=== PATIENT | female | born 1940 | race Caucasian/White ===

== ENCOUNTER 2018-11-25 12:52 | Inpatient (IN) | payer MEDICARE, OTHER ==
[2018-11-25] VITALS (15 sets, daily range): BP systolic 85–151; BP diastolic 41–122; PULSE 75–96; RESP 12–29; Ht 154.9 cm; Wt 82.5 kg
[~2018-11-25] VITALS: Ht 154.9 cm; Wt 82.5 kg
[2018-11-25] MEDS ORDERED: ACETAMINOPHEN 650 MG SUPP PR PRN (14:00)
[2018-11-25] MEDS ORDERED: GLUCOSE GEL 15 GRAM TUBE PO PRN ×2 (14:30)
[2018-11-25] MEDS ORDERED: DEXTROSE 50% 50 ML SYRINGE IV PRN ×2 (14:30)
[2018-11-25] MEDS ORDERED: GLUCOSE GEL 15 GRAM TUBE BUCCAL PRN (14:30)
[2018-11-25] MEDS ORDERED: GLUCAGON 1 MG INJ IM PRN (14:30)
[2018-11-25] MEDS: DEXTROSE 5%-0.45% NACL 1,000 ML IV SCH (14:38)
[2018-11-25] MEDS: FAMOTIDINE 20 MG INJ IV SCH (15:45)
[2018-11-25] MEDS: INSULIN ASPART [NOVOLOG] 3 ML PEN SC SCH ×2 (16:59→21:41)
[2018-11-25] MEDS ORDERED: ACETAMINOPHEN 1000MG/100ML IV 100 ML IVPB PRN (22:30)
[2018-11-26] VITALS (23 sets, daily range): BP systolic 86–118; BP diastolic 42–82; PULSE 67–93; RESP 10–26
[2018-11-26] MEDS: INSULIN ASPART [NOVOLOG] 3 ML PEN SC SCH ×6 (00:22→20:16)
[2018-11-26] MEDS: DEXTROSE 5%-0.45% NACL 1,000 ML IV SCH ×2 (01:33→15:25)
--- NOTE | 2018-11-26 02:51 | HP ---
DATE OF ADMISSION: 11/25/2018 CHIEF COMPLAINT: Acute encephalopathy and hypertension. HISTORY OF PRESENT ILLNESS: The patient is a 78-year-old female with hypertension, congestive heart failure, asthma, chronic kidney disease stage III, diabetes, history of pulmonary embolism, colon cancer, status post surgery, atrial fibrillation. The patient was recently admitted at [facility] in [place] for acute respiratory failure secondary to pulmonary edema due to acute diastolic heart failure. The patient was treated with IV Lasix. The patient also has history of asthma. The patient was stabilized and was transferred to [facility] on 11/18/2018. The patient since admission had been slowly declining and for the last 2 to 3 days, the patient's renal functions have been deteriorating. The patient continues to remain short of breath especially with minimal activity. The patient this morning was noted to be altered and was nonverbal, initially was not even waking up but subsequently she started waking up and was able to move all extremities. The patient did not have any fever or chills. No history of vomiting. The patient was recently noted to be constipated and had large bowel movement yesterday. The patient did not have any acute skin rash or joint swelling. The patient was seen by Dr. Grey due to worsening renal failure. The patient also developed anemia of chronic kidney disease and hemoglobin this morning was only 7.1. Chemistry revealed a BUN of 106, creatinine of 6.9. The patient was altered and was seen by Dr. Cardoso from neurology standpoint. This morning, the patient was subsequently transferred to [facility] ICU because of multiple readings of hypertension. The patient's last blood pressure at [place] was in 80s and the patient was lethargic. REVIEW OF SYSTEMS: Rather limited as patient was lethargic, although there was no reported tonic-clonic seizure, no reported vomiting, no reported gross bleeding from any site. The patient did not have any gross focal motor deficit. No reported chest congestion. The patient does have shortness of breath with minimal activity. PAST MEDICAL HISTORY: As stated above. PAST SURGICAL HISTORY: Status post colon resection with removal of approximately 1/3 of colon due to cancer. FAMILY HISTORY: Noncontributory. SOCIAL HISTORY: The patient prior to admission at hospital lived at home with family. No smoking or alcohol. ALLERGIES: NO KNOWN DRUG ALLERGIES. PHYSICAL EXAMINATION: GENERAL: Revealed the patient to be lethargic but arousable, although confused with dysarthric speech. VITAL SIGNS: Temperature 98.3, pulse 91, respiration 21, blood pressure 151/99, O2 saturation 100% on 2 liters nasal cannula. HEENT: Atraumatic, normocephalic head. Right eyelid has small reddish lesion, but no eye discharge or redness. No nystagmus. Nose and ears are normal externally. NECK: No mass, no JVD, no thyromegaly. CHEST: Revealed diminished breath sounds bilaterally. No use of accessory muscles. CARDIOVASCULAR: Irregular rhythm. ABDOMEN: Soft, nondistended, nontender. No palpable mass. EXTREMITIES: No leg edema. Pedal pulses are palpable. SKIN: Without acute rash. NEUROLOGIC: The patient is lethargic, but arousable and has dysarthria. LABORATORY DATA: Sodium 142, potassium 4.4, BUN 108, creatinine 6.8. Last glucose 154. Phosphorus 6.4, magnesium 3.8. WBC 12.9, hemoglobin 7.1, platelet 127. IMPRESSION: 1. Acute encephalopathy, most likely metabolic in nature. Stat CT of the brain was obtained today due to patient being on Eliquis; however, CT revealed white matter disease compatible with chronic small vessel ischemia. 2. Mildly elevated leukocytosis. In view of no fever, we will continue to monitor. 3. Hypertension with hypertensive heart disease and history of congestive heart failure. The patient's recent EF is 60%. We will hold off on Lasix. The patient was seen by Dr. Grey. I spoke with him. The patient will require hemodialysis due to worsening renal failure. The patient initially was hypotensive at [place] [facility] but was given IV fluid bolus. Since then, the patient's blood pressure has remained in normal range. The patient will be kept n.p.o. until seen by speech therapist. I spoke with Dr. Rosario for pulmonary consult. I spoke with Dr. Emil Grey from nephrology standpoint. 4. Diabetes. Continue Lantus and sliding scale insulin. The patient will be kept n.p.o. until cleared by speech therapist. 5. Hypothyroidism. Continue Synthroid once she is able to take p.o. 6. Asthma. Continue breathing treatment. If the patient remains on breathing treatment, we will add Pulmicort in view of history of asthma. 7. History of atrial fibrillation. We will continue to monitor. 8. Thrombocytopenia. Apparently, the patient's platelet count on day of admission were 84. Now, it is 127. We will continue to monitor. Dr. Sy is following in cardiology consultation. We have given a dose of Procrit for anemia of chronic kidney disease. The patient will remain in ICU for close monitoring. As mentioned above. CT of the head was unremarkable. We will wait for speech therapy evaluation and after that, the patient will be resumed on Eliquis for cerebrovascular accident prophylaxis. We will do followup labs in the morning. Meanwhile, the patient will be given gastrointestinal prophylaxis with Prevacid. Further recommendation will depend on patient's hospital course and recommendation from multiple consultants. Plan of care discussed with her daughter. Dictated By: NEREIDA MCQUEEN MD AB/NTS Conf#: [id number] DID#: [id number] CC: EVA ROSARIO MD;*EndCC* MTDD
[2018-11-26] MEDS ORDERED: SOD CHLORIDE 0.9% 500 ML IV ONE (04:00)
[2018-11-26] MEDS ORDERED: PHENYLephrine 20MG IN 250 ML 250 ML IV SCH (06:30)
--- NOTE | 2018-11-26 08:14 | CONS ---
DATE OF ADMISSION: 11/25/2018 DATE OF CONSULTATION: 11/26/2018 TYPE OF CONSULTATION: Nephrology. REASON FOR CONSULTATION: Acute kidney injury, chronic kidney disease. PHYSICIAN REQUESTING CONSULT: Dr. Lind. HISTORY OF PRESENT ILLNESS: This is a 78-year-old female with a past medical history of hypertension , congestive heart failure, asthma, history of chronic kidney disease, history of diabetes, history o f pulmonary embolism, colon cancer, history of atrial fibrillation, who was recently admitted to [facility] for acute respiratory failure secondary to congestive heart failure [facility]. The patient was treated with IV diuretics. She was eventually stabilized and transferred to [facility] on 11/18/18. During the time in [place], the patient had a significant dec line in mental status. The patient has also had worsening of renal function. The patient was in acu te kidney injury during a time in [place] with a creatinine that continued to decline, most recently i t was noted to be 6.9 mg/dL. The patient then developed hypotension as a result was transferred to [facility] Int[facility] Unit for further care. In terms of patient's renal history, the patient previously noted to have chronic kidney disease. Ho wever, the patient had a recent decline in renal function and was being evaluated for hemodialysis. The patient's family has apparently consented for a Eliseo catheter placement and hemodialysis. The re have been no reports of any hemoptysis, hematemesis or hematochezia. PAST MEDICAL HISTORY: As stated above, history of chronic kidney disease, hypertension, congestive h eart failure, history of asthma, history of pulmonary embolism, history of colon cancer. PAST SURGICAL HISTORY: Status post colon resection. FAMILY HISTORY: Noncontributory. SOCIAL HISTORY: Lives at home. ALLERGIES: NO KNOWN DRUG ALLERGIES. REVIEW OF SYSTEMS: Unable to do adequate review of systems as the patient is altered. Pertinent pos itives as obtained by reviewing medical records, speaking to hospital staff, stated in HPI, otherwise negative. PHYSICAL EXAMINATION: VITAL SIGNS: Blood pressure is 108/72, respirations 16, pulse 72, temperature 98.6. HEENT: Head is normocephalic. NECK: Supple. HEART: Regular rate. LUNGS: Show diminished breath sounds at the base. ABDOMEN: Soft, nontender to palpation without rebound or guarding. EXTREMITIES: Negative for clubbing, cyanosis. Trace edema. DERMATOLOGIC: No rashes. MUSCULOSKELETAL: No joint effusion. NEUROLOGIC: Limited exam due to patient as the patient is obtunded. LABORATORY DATA: Reviewed. The patient's BUN 111, creatinine 7.19, phosphorus 6.9, magnesium 3.5. White count 13.1, hemoglobin 6.9, platelet count is 133. The patient's microbiology was reviewed. C T scan of the brain was reviewed. ASSESSMENT AND PLAN: This is a 78-year-old female who presents with; 1. Nonoliguric acute kidney injury on top of chronic kidney disease, with a previous baseline creati nine of 3.84 mg/dL. Etiology of current acute kidney injury is secondary to hemodynamics, acute tubu lar necrosis. The patient is currently a candidate for hemodialysis due to worsening renal function and uremic type symptoms. Plan is to initiate hemodialysis once a Eliseo catheter has been placed. We will discuss with the patient's family about overall goals of care. Anticipate daily dialysis fo r solute clearance and volume removal. We will otherwise continue current treatment plans, supportiv e care, renally dose all medicines. 2. Anemia etiology may be secondary to chronic kidney disease. Plan is to check an iron panel, chec k ferritin level. We will give the patient Epogen. 3. Mineral bone disorder, monitor calcium and phosphorus levels. 4. Encephalopathy. Etiology may be secondary to uremia. Continue medical management. Anticipate h emodialysis. 5. Coronary artery disease. Continue current medical management. 6. Diabetes. Continue current insulin regimen. 7. Hypothyroidism. Continue Synthroid. 8. Asthma. Continue current treatment plan. 9. History of atrial fibrillation. Continue to monitor. 10. History of thrombocytopenia. 11. Hypotension, improved. Continue to monitor. Thank you, Dr. Lind, for this interesting consult. It will be a pleasure to follow the patient w ith you throughout the hospital course. Dictated By: SUSY CISNEROS DO NR/NTS Conf#: [id number] DID#: [id number] CC: NEREIDA LIND MD; EVA LOPEZ MD;*EndCC*
--- NOTE | 2018-11-26 08:35 | CONS ---
Assessment/Plan Assessment/Plan Assessment/Plan (Daily) CT of the head is showing atrophy. Assessment and recommendations; 1. Patient admitted with altered mental status likely due to acute worsening of chronic renal failure 2. History of CHF, hypertension, chronic atrial fibrillation, as well as colon cancer. 3. Significant anemia. 4. Thrombocytopenia. 5. Hypotension, likely due to anemia. Continue current supportive care. Patient will need a PICC line placed. May require pressor support. Patient to get blood transition. May possibly req uire hemodialysis. Meanwhile will obtain a chest x-ray. Consultation Date/Type/Reason Admit Date/Time Nov 25, 2018 at 13:18 Date of Consultation: Nov 26, 2018 Type of Consult Pulmonary/critical care Patient is a 78-year-old lady who was admitted for altered mental status. Further workup has revealed significant anemia with worsening chronic renal failure with severe elevation in serum creatinine. Since admission however patient mental status has improved significantly to the point with the patient always communicative and awake and alert. Patient also is mildly hypotensive likely due to anemia. She denies any shortness of breath any chest pain. Any nausea vomiting. Past medical history; 1. Chronic renal insufficiency, 2. CHF. 3. Hypertension. 4. History of colon cancer. Status post partial colectomy. 5. Chronic atrial fibrillation. 6. Apparently chronic anemia. Medications; reviewed. Allergies; none. Social history; patient never smoked. Family history; noncontributory. 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 Review of systems; denies any chest pain, shortness of breath has improved. Denies any abdominal pain, nausea vomiting. General exam; elderly female, awake. Currently no distress. Date/Time of Note DATE: 11/26/18 TIME: 08:31 Past Medical History Medications Current Medications Hydralazine HCl (Apresoline) 10 mg Q6H PRN IV SBP >160; Start 11/25/18 at 14:00 Ondansetron HCl (Zofran Inj) 4 mg Q4H PRN IV NAUSEA AND/OR VOMITING; Start 11/25/18 at 14:00 Insulin Glargine (Lantus) 10 units DAILY@0800 SC ; Start 11/26/18 at 08:00 Insulin Aspart (Novolog Insulin Pen) NOVOLOG *MILD* ALGORI... Q4 SC Last administered on 11/26/18at 00:22; Admin Dose 2 UNIT; Start 11/25/18 at 17:00 Albuterol/ Ipratropium (Duoneb) 3 ml Q6H RESP THERAPY PRN HHN SHORTNESS OF BREATH; Start 11/25/18 at 14:00 Dextrose/Sodium Chloride 1,000 ml @ 80 mls/hr [id number] IV Last administered on 11/26/18at 01:33; Admin Dose 80 MLS/HR; Start 11/25/18 at 14:00 Acetaminophen (Tylenol Supp) 650 mg Q4H PRN MD MILD PAIN(1-3) OR TEMP>38C; Start 11/25/18 at 14:00; Status Hold Miscellaneous Information 1 ea NOTE XX ; Start 11/25/18 at 14:30 Glucose (Glutose) 15 gm Q15M PRN PO DECREASED GLUCOSE; Start 11/25/18 at 14:30 Glucose (Glutose) 22.5 gm Q15M PRN PO DECREASED GLUCOSE; Start 11/25/18 at 14:30 Dextrose (D50w Syringe) 25 ml Q15M PRN IV DECREASED GLUCOSE; Start 11/25/18 at 14:30 Dextrose (D50w Syringe) 50 ml Q15M PRN IV DECREASED GLUCOSE; Start 11/25/18 at 14:30 Glucagon (Glucagen) 1 mg Q15M PRN IM DECREASED GLUCOSE; Start 11/25/18 at 14:30 Glucose (Glutose) 15 gm Q15M PRN BUCCAL DECREASED GLUCOSE; Start 11/25/18 at 14:30 Famotidine (Pepcid Iv) 20 mg DAILY IV Last administered on 11/25/18at 15:45; Admin Dose 20 MG; Start 11/25/18 at 15:00 Acetaminophen 100 ml @ 400 mls/hr Q6H PRN IVPB pain Last administered on 11/25/18at 22:35; Admin Dose 400 MLS/HR; Start 11/25/18 at 22:30; Stop 11/26/18 at 22:29 Budesonide (Pulmicort (Neb)) 0.5 mg BID RESP THERAPY HHN ; Start 11/26/18 at 09:00 Phenylephrine HCl 250 ml @ 75 mls/hr TITRATE IV ; Start 11/26/18 at 06:30 Allergies: Coded Allergies: No Known Allergy (Unverified , 11/18/18) Social History Smoking Status: Never smoker Exam/Review of Systems Exam Vitals Vital Signs Date Temp Pulse Resp B/P (MAP) Pulse Ox O2 O2 Flow FiO2 Time Delivery Rate 11/26/18 76 24 108/75 100 Nasal 2.0 05:00 (86) Cannula 11/26/18 27 04:38 11/26/18 97.8 04:00 Intake and Output 11/25/18 11/25/18 11/26/18 1515:00 23:00 07:00 IntakeIntake Total 30 ml 320 ml 1000 ml OutputOutput Total 3 ml BalanceBalance 30 ml 320 ml 997 ml Exam HE ENT exam; supple neck, positive JVD. No lymphadenopathy. Midline trachea. No thyromegaly. Patient has fair dentition. No neck masses. Pupils are small bilaterally. Chest exam; diminished but clear breath sounds. S1-S2 audible, no murmurs. Irregular rhythm. Abdomen exam; soft, protuberant. Nontender. Bowel sounds audible. Extremity exam; trace edema. DOWEL PIN MAN exam; no focal deficit. Results Result Diagram: 11/26/18 0512 11/26/18 0512 Results 24hrs Laboratory Tests Test 11/25/18 16:49 11/25/18 20:38 11/26/18 00:15 11/26/18 03:57 Bedside Glucose 208 154 190 140 Test 11/26/18 05:12 White Blood Count 13.1 H Red Blood Count 2.40 L Hemoglobin 6.9 *L Hematocrit 23.2 L Mean Corpuscular 96.7 Volume Mean Corpuscular 28.8 L Hemoglobin Mean Corpuscular 29.7 L Hemoglobin Concent Red Cell 14.7 H Distribution Width Platelet Count 133 L Mean Platelet Volume 12.9 H Immature 0.500 H Granulocytes % Neutrophils % Segmented 83 H Neutrophils % (Manual) Band Neutrophils % 5 H (Manual) Lymphocytes % Lymphocytes % 4 L (Manual) Monocytes % Monocytes % (Manual) 8 Eosinophils % Basophils % Nucleated Red Blood 0.2 H Cells % Immature 0.070 H Granulocytes # Neutrophils # Neutrophils # 11.0 H (Manual) Band Neutrophils # 0.6 Lymphocytes (Manual) 0.5 L Lymphocytes # Monocytes # Monocytes # (Manual) 1.0 H Eosinophils # Basophils # Nucleated Red Blood Cells # Platelet Estimate DECREASED Polychromasia 1+ Anisocytosis 2+ Microcytosis 1+ Macrocytosis 1+ Activated 52.4 H Partial Thromboplast Time Sodium Level 139 Potassium Level 4.3 Chloride Level 101 Carbon Dioxide Level 24 Anion Gap 14 H Blood Urea Nitrogen 111 H Creatinine 7.19 H Est Glomerular Filtrat Rate mL/min Glucose Level 93 Calcium Level 7.5 L Phosphorus Level 6.9 H Magnesium Level 3.5 H Medications Medication Current Medications Hydralazine HCl (Apresoline) 10 mg Q6H PRN IV SBP >160; Start 11/25/18 at 14:00 Ondansetron HCl (Zofran Inj) 4 mg Q4H PRN IV NAUSEA AND/OR VOMITING; Start 11/25/18 at 14:00 Insulin Glargine (Lantus) 10 units DAILY@0800 SC ; Start 11/26/18 at 08:00 Insulin Aspart (Novolog Insulin Pen) NOVOLOG *MILD* ALGORI... Q4 SC Last administered on 11/26/18at 00:22; Admin Dose 2 UNIT; Start 11/25/18 at 17:00 Albuterol/ Ipratropium (Duoneb) 3 ml Q6H RESP THERAPY PRN HHN SHORTNESS OF BREATH; Start 11/25/18 at 14:00 Dextrose/Sodium Chloride 1,000 ml @ 80 mls/hr [id number] IV Last administered on 11/26/18at 01:33; Admin Dose 80 MLS/HR; Start 11/25/18 at 14:00 Acetaminophen (Tylenol Supp) 650 mg Q4H PRN MD MILD PAIN(1-3) OR TEMP>38C; Start 11/25/18 at 14:00; Status Hold Miscellaneous Information 1 ea NOTE XX ; Start 11/25/18 at 14:30 Glucose (Glutose) 15 gm Q15M PRN PO DECREASED GLUCOSE; Start 11/25/18 at 14:30 Glucose (Glutose) 22.5 gm Q15M PRN PO DECREASED GLUCOSE; Start 11/25/18 at 14:30 Dextrose (D50w Syringe) 25 ml Q15M PRN IV DECREASED GLUCOSE; Start 11/25/18 at 14:30 Dextrose (D50w Syringe) 50 ml Q15M PRN IV DECREASED GLUCOSE; Start 11/25/18 at 14:30 Glucagon (Glucagen) 1 mg Q15M PRN IM DECREASED GLUCOSE; Start 11/25/18 at 14:30 Glucose (Glutose) 15 gm Q15M PRN BUCCAL DECREASED GLUCOSE; Start 11/25/18 at 14:30 Famotidine (Pepcid Iv) 20 mg DAILY IV Last administered on 11/25/18at 15:45; Admin Dose 20 MG; Start 11/25/18 at 15:00 Acetaminophen 100 ml @ 400 mls/hr Q6H PRN IVPB pain Last administered on 11/25/18at 22:35; Admin Dose 400 MLS/HR; Start 11/25/18 at 22:30; Stop 11/26/18 at 22:29 Budesonide (Pulmicort (Neb)) 0.5 mg BID RESP THERAPY HHN ; Start 11/26/18 at 09:00 Phenylephrine HCl 250 ml @ 75 mls/hr TITRATE IV ; Start 11/26/18 at 06:30 PERNELL BYRD Nov 26, 2018 08:35
[2018-11-26] MEDS ORDERED: LIDOCAINE 1% (MPF) 5 ML VIAL SC ONE (09:00)
[2018-11-26] MEDS: FAMOTIDINE 20 MG INJ IV SCH (09:59)
[2018-11-26] MEDS: INSULIN GLARGINE [LANTus] (100 UNITS/ML) SYG SC SCH (10:00)
[2018-11-26] MEDS ORDERED: FER325 PO (10:14)
[2018-11-26] MEDS ORDERED: INSU100I33 SC (10:15)
[2018-11-26] MEDS ORDERED: DOCU250C58 PO (10:15)
[2018-11-26] MEDS: BUDESONIDE (NEB) 0.5MG/2ML AMP HHN SCH ×2 (10:16→20:17)
[2018-11-26] MEDS ORDERED: HYDR-3672 PO (10:16)
[2018-11-26] MEDS ORDERED: CLON1PAT2 TD (10:17)
[2018-11-26] MEDS ORDERED: CLON0.2T5 PO (10:17)
[2018-11-26] MEDS ORDERED: ERGO500013 PO (10:18)
[2018-11-26] MEDS ORDERED: LISI-313 PO (10:18)
[2018-11-26] MEDS ORDERED: LEVO125T7 PO (10:19)
[2018-11-26] MEDS ORDERED: BISA-34 PO (10:19)
[2018-11-26] MEDS ORDERED: FURO40TA4 PO (10:19)
[2018-11-26] MEDS ORDERED: FAMO20TA18 PO (10:20)
[2018-11-26] MEDS ORDERED: AMLO-147 PO (10:21)
[2018-11-26] MEDS ORDERED: ASPI-817 PO (10:21)
[2018-11-26] MEDS ORDERED: GABA300C16 PO (10:24)
[2018-11-26] MEDS ORDERED: CARV3.1260 PO (10:24)
[2018-11-26] MEDS ORDERED: CLOP75TA19 PO (10:25)
[2018-11-26] MEDS ORDERED: INSU100C3 SQ (10:26)
[2018-11-26] MEDS ORDERED: DRON400T2 PO (10:26)
[2018-11-26] MEDS ORDERED: ATOR20TA38 PO (10:27)
[2018-11-26] MEDS ORDERED: POTA8CAP PO (10:27)
[2018-11-26] MEDS ORDERED: MAGN400T27 PO (10:28)
[2018-11-26] MEDS ORDERED: LOSA50TA14 PO (10:28)
[2018-11-26] MEDS ORDERED: ALPR0.254 PO (10:29)
--- NOTE | 2018-11-26 16:13 | PN ---
Date/Time of Note Date/Time of Note DATE: 11/26/18 TIME: 15:57 Assessment/Plan VTE Prophylaxis Risk score (from [facility])>0 risk: 11 SCD applied (from [facility]): Yes Pharmacological prophylaxis: NA/contraindicated Pharm contraindication: thrombocytopenia Lines/Catheters IV Catheter Type (from [facility]): PICC Line Central line still needed: Yes Urinary Cath still in place: Yes Reason Cath still needed: urinary retention Assessment/Plan Hospital Course Patient is lethargic but easily arousable, undergoing blood transfusion plan to start hemodialysis when hemodialysis catheter will be placed. Patient is currently in atrial fibrillation at controlled rate. Assessment/Plan -Acute kidney injury on chronic kidney disease. Plan for hemodialysis while he be placed. Dr. Sadler is following in nephrology consultation. -Acute metabolic encephalopathy. CT revealed white matter disease compatible with chronic small vessel ischemia. -Atrial fibrillation. Dr. Sy is following in cardiology consultation. -CHF -Hypertension -Anemia of chronic disease requiring blood transfusion, follow-up on stool for OB. -Diabetes. Continue Lantus and sliding scale insulin. -Hypothyroidism. Continue Synthroid. -Asthma. Continue Pulmicort. -Thrombocytopenia. Critical care time spent is 30 minutes. Further recommendations based on clinical course. Plan of care discussed with Dr. Lind. Result Diagram: 11/26/1851111/26/18511 Results 24hrs Laboratory Tests Test 11/25/18 16:49 11/25/18 20:38 11/26/18 00:15 11/26/18 03:57 Bedside Glucose 208 154 190 140 Test 11/26/18 05:10 11/26/18 05:12 11/26/18 09:11 11/26/18 12:36 Hepatitis B Surface NEGATIVE Antigen Hepatitis B Surface NEGATIVE Antibody White Blood Count 13.1 H Red Blood Count 2.40 L Hemoglobin 6.9 *L Hematocrit 23.2 L Mean Corpuscular 96.7 Volume Mean Corpuscular 28.8 L Hemoglobin Mean Corpuscular 29.7 L Hemoglobin Concent Red Cell 14.7 H Distribution Width Platelet Count 133 L Mean Platelet Volume 12.9 H Immature 0.500 H Granulocytes % Neutrophils % Segmented 83 H Neutrophils % (Manual) Band Neutrophils % 5 H (Manual) Lymphocytes % Lymphocytes % 4 L (Manual) Monocytes % Monocytes % (Manual) 8 Eosinophils % Basophils % Nucleated Red Blood 0.2 H Cells % Immature 0.070 H Granulocytes # Neutrophils # Neutrophils # 11.0 H (Manual) Band Neutrophils # 0.6 Lymphocytes (Manual) 0.5 L Lymphocytes # Monocytes # Monocytes # (Manual) 1.0 H Eosinophils # Basophils # Nucleated Red Blood Cells # Platelet Estimate DECREASED Polychromasia 1+ Anisocytosis 2+ Microcytosis 1+ Macrocytosis 1+ Activated 52.4 H Partial Thromboplast Time Sodium Level 139 Potassium Level 4.3 Chloride Level 101 Carbon Dioxide Level 24 Anion Gap 14 H Blood Urea Nitrogen 111 H Creatinine 7.19 H Est Glomerular Filtrat Rate mL/min Glucose Level 93 Calcium Level 7.5 L Phosphorus Level 6.9 H Magnesium Level 3.5 H Bedside Glucose 137 150 Exam/Review of Systems Exam Vitals Vital Signs Date Temp Pulse Resp B/P (MAP) Pulse Ox O2 O2 Flow FiO2 Time Delivery Rate 11/26/18 82 18 100/82 87 Nasal 2.0 15:00 (88) Cannula 11/26/18 98.2 12:00 11/26/18 27 04:38 Intake and Output 11/25/18 11/25/18 11/26/18 1515:00 23:00 07:00 IntakeIntake Total 30 ml 320 ml 1180 ml OutputOutput Total 3 ml BalanceBalance 30 ml 320 ml 1177 ml Constitutional: alert, oriented Respiratory: diminished breath sounds Cardiovascular: irregular rhythm Gastrointestinal: soft, non-tender Musculoskeletal: nl extremities to inspection Extremities: normal pulses Neurological: nl mental status, lethargic Skin: nl turgor Results Results 24hrs Laboratory Tests Test 11/25/18 16:49 11/25/18 20:38 11/26/18 00:15 11/26/18 03:57 Bedside Glucose 208 154 190 140 Test 11/26/18 05:10 11/26/18 05:12 11/26/18 09:11 11/26/18 12:36 Hepatitis B Surface NEGATIVE Antigen Hepatitis B Surface NEGATIVE Antibody White Blood Count 13.1 H Red Blood Count 2.40 L Hemoglobin 6.9 *L Hematocrit 23.2 L Mean Corpuscular 96.7 Volume Mean Corpuscular 28.8 L Hemoglobin Mean Corpuscular 29.7 L Hemoglobin Concent Red Cell 14.7 H Distribution Width Platelet Count 133 L Mean Platelet Volume 12.9 H Immature 0.500 H Granulocytes % Neutrophils % Segmented 83 H Neutrophils % (Manual) Band Neutrophils % 5 H (Manual) Lymphocytes % Lymphocytes % 4 L (Manual) Monocytes % Monocytes % (Manual) 8 Eosinophils % Basophils % Nucleated Red Blood 0.2 H Cells % Immature 0.070 H Granulocytes # Neutrophils # Neutrophils # 11.0 H (Manual) Band Neutrophils # 0.6 Lymphocytes (Manual) 0.5 L Lymphocytes # Monocytes # Monocytes # (Manual) 1.0 H Eosinophils # Basophils # Nucleated Red Blood Cells # Platelet Estimate DECREASED Polychromasia 1+ Anisocytosis 2+ Microcytosis 1+ Macrocytosis 1+ Activated 52.4 H Partial Thromboplast Time Sodium Level 139 Potassium Level 4.3 Chloride Level 101 Carbon Dioxide Level 24 Anion Gap 14 H Blood Urea Nitrogen 111 H Creatinine 7.19 H Est Glomerular Filtrat Rate mL/min Glucose Level 93 Calcium Level 7.5 L Phosphorus Level 6.9 H Magnesium Level 3.5 H Bedside Glucose 137 150 Medications Medication Current Medications Hydralazine HCl (Apresoline) 10 mg Q6H PRN IV SBP >160; Start 11/25/18 at 14:00 Ondansetron HCl (Zofran Inj) 4 mg Q4H PRN IV NAUSEA AND/OR VOMITING; Start 11/25/18 at 14:00 Insulin Glargine (Lantus) 10 units DAILY@0800 SC Last administered on 11/26/18at 10:00; Admin Dose 10 UNITS; Start 11/26/18 at 08:00 Insulin Aspart (Novolog Insulin Pen) NOVOLOG *MILD* ALGORI... Q4 SC Last administered on 11/26/18at 12:41; Admin Dose 1 UNIT; Start 11/25/18 at 17:00 Albuterol/ Ipratropium (Duoneb) 3 ml Q6H RESP THERAPY PRN HHN SHORTNESS OF BREATH; Start 11/25/18 at 14:00 Dextrose/Sodium Chloride 1,000 ml @ 80 mls/hr [id number] IV Last administered on 11/26/18at 15:25; Admin Dose 80 MLS/HR; Start 11/25/18 at 14:00 Acetaminophen (Tylenol Supp) 650 mg Q4H PRN RI MILD PAIN(1-3) OR TEMP>38C; Start 11/25/18 at 14:00; Status Hold Miscellaneous Information 1 ea NOTE XX ; Start 11/25/18 at 14:30 Glucose (Glutose) 15 gm Q15M PRN PO DECREASED GLUCOSE; Start 11/25/18 at 14:30 Glucose (Glutose) 22.5 gm Q15M PRN PO DECREASED GLUCOSE; Start 11/25/18 at 14:30 Dextrose (D50w Syringe) 25 ml Q15M PRN IV DECREASED GLUCOSE; Start 11/25/18 at 14:30 Dextrose (D50w Syringe) 50 ml Q15M PRN IV DECREASED GLUCOSE; Start 11/25/18 at 14:30 Glucagon (Glucagen) 1 mg Q15M PRN IM DECREASED GLUCOSE; Start 11/25/18 at 14:30 Glucose (Glutose) 15 gm Q15M PRN BUCCAL DECREASED GLUCOSE; Start 11/25/18 at 14:30 Famotidine (Pepcid Iv) 20 mg DAILY IV Last administered on 11/26/18at 09:59; Admin Dose 20 MG; Start 11/25/18 at 15:00 Acetaminophen 100 ml @ 400 mls/hr Q6H PRN IVPB pain Last administered on 11/25/18at 22:35; Admin Dose 400 MLS/HR; Start 11/25/18 at 22:30; Stop 11/26/18 at 22:29 Budesonide (Pulmicort (Neb)) 0.5 mg BID RESP THERAPY HHN Last administered on 11/26/18at 10:16; Admin Dose 0.5 MG; Start 11/26/18 at 09:00 Phenylephrine HCl 250 ml @ 75 mls/hr TITRATE IV ; Start 11/26/18 at 06:30 IV Flush (NS 10 ml) 10 ml PRN PRN IV IV PROTOCOL; Start 11/26/18 at 14:00 GENNY SULLIVAN Nov 26, 2018 16:07
[2018-11-26] MEDS: ALBUTEROL/IPRATROPIUM (NEB) 3 ML AMP HHN PRN ×2 (17:43→20:17)
--- NOTE | 2018-11-26 20:23 | CONS ---
DATE OF ADMISSION: 11/25/2018 DATE OF CONSULTATION: 11/26/2018 REASON FOR CONSULTATION: Atrial fibrillation. REQUESTING PHYSICIAN: Dr. Lind. HISTORY OF PRESENT ILLNESS: The patient is a 78-year-old female with history of chronic kidney disea se, atrial fibrillation, coronary artery disease, nonobstructive chart biopsy from catheters outside hospital, anemia, gastroesophageal reflux disease, diastolic congestive heart failure, hypertension, hypothyroidism, recent GI bleed, who had initially been admitted to [facility] in [place] pril 2019 for ongoing evaluation and treatment of congestive heart failure, respiratory distress. Th e patient has remained at [facility] on baseline Eliquis, carvedilol and diltiazem. The patient was note d to have worsening hypotension and therefore was transferred to the ICU. Since arrival in the ICU, temperature 98.6, blood pressure 138/99, pulse 96, respiratory rate 22, satting 96%. The patient's l abs were notable for white count 13.1, hemoglobin 6.9, platelet count 133, sodium 139, potassium 4.3, creatinine 7.1, BUN of 111, magnesium 3.50, INR not drawn. The patient had stool occult blood retur michelle positive. The patient underwent a brain CT for worsening altered mental status with atrophy, whi te matter disease, chronic small vessel ischemia and a chest x-ray that revealed diffuse patulous ves dmitriy with moderate right pleural effusion. The patient at this time remains in the ICU off of pressur e support with ongoing lethargy. General altered mental state. PAST MEDICAL HISTORY: As above in HPI. MEDICATIONS CURRENTLY IN HOSPITAL: 1. Budesonide. 2. Lantus for life as necessary. 3. Tylenol. 4. Pepcid. 5. Hydralazine. 6. IV fluid hydration 80 mL an hour. ALLERGIES: NO KNOWN DRUG ALLERGIES. SOCIAL HISTORY: No current tobacco, ETOH or illicit drug use. FAMILY HISTORY: No sudden cardiac or early CAD. REVIEW OF SYSTEMS: As above in HPI. CONSTITUTIONAL: No fevers, chills. PULMONARY: Shortness of breath. CARDIOVASCULAR: No current signs of chest pain, but atrial fibrillation. GASTROINTESTINAL: No vomiting. GENITOURINARY: No hematuria. MUSCULOSKELETAL: Degenerative joint disease. PSYCHIATRIC: No documented psych history. NEUROLOGICAL: Altered mental state. CARDIOVASCULAR: Hypertension, atrial fibrillation. GI: GI bleed. : Renal failure. PSYCHIATRIC: No documented psych history. NEUROLOGIC: Altered mental state. PHYSICAL EXAMINATION: VITAL SIGNS: Temperature of 98.2, blood pressure 100/82, pulse 82, respirations 18, satting 87% on 2 liters. GENERAL: The patient is sleeping but arousable. NECK: JVP approximately 9 cm of water. CHEST: Upper airway transmitted rhonchus sounds. HEART: Irregularly irregular, I/ systolic murmur. ABDOMEN: Positive bowel sounds, soft. EXTREMITIES: Trace edema, 1+ pulses bilateral posterior tibial. LABORATORIES: Most recently white count 13.1, hemoglobin 6.9, platelet count 133. Sodium 139, potas sium 4.3, creatinine 7.1, BUN of 111, magnesium 3.5. IMAGING STUDIES: As above in HPI. No further imaging studies for my review at this time. ECG: No electrocardiograms for my review at this time. IMPRESSION: 1. Hypotension, borderline, not on pressure support at this time. 2. Atrial fibrillation, primarily rate controlled off of antihypertensives at this time. 3. Anemia, worsening with guaiac positive stool consistent with gastrointestinal bleed. 4. Diabetes mellitus. 5. Acute on chronic renal failure, being initiated on hemodialysis. 6. Altered mental state. 7. Diastolic congestive heart failure due to a preserved EF by most recent echo and findings by ches t x-ray. 8. History of coronary artery disease, nonobstructive by outside hospital catheterization. 9. Shortness of breath with hypothyroidism. 10. Diabetes mellitus. RECOMMENDATIONS: 1. At this time, we would maintain the patient on close monitoring to follow rhythm and rate control closely. 2. We will give patient IV push p.r.n., beta radha and consider single dose of digoxin if rates be gin to increase. 3. We will hold on the patient's anticoagulation at this time given guaiac positive stool, worsening anemia. 4. Pressor support as necessary. 5. We would completely rule out myocardial infarction to ensure this patient's constellation not res ult in acute coronary syndrome such as acute myocardial infarction unlikely due to an outside hospita l catheterization. 6. The patient to be initiated on hemodialysis for correction of volume and electrolyte abnormalitie s. 7. Follow the patient's blood sugars closely on Lantus. 8. Consider transfusion with next hemodialysis. Thank you for allowing me to take part in the care of this patient. I will continue to follow very c losely with you with further recommendations to be made as the patient progresses through inpatient h ospital clinical course. Dictated By: CARMELO GONZALEZ/STEPHEN Conf#: [id number] DID#: [id number] CC: EVA LOPEZ MD; NEREIDA LIND MD;*EndCC*
[2018-11-27] VITALS (34 sets, daily range): BP systolic 88–139; BP diastolic 42–113; PULSE 63–92; RESP 10–23
[2018-11-27] MEDS: INSULIN ASPART [NOVOLOG] 3 ML PEN SC SCH ×6 (01:38→21:00)
[2018-11-27] MEDS: DEXTROSE 5%-0.45% NACL 1,000 ML IV SCH (05:10)
--- NOTE | 2018-11-27 07:51 | CONS ---
Consult Date/Type/Reason Admit Date/Time Nov 25, 2018 at 13:18 Initial Consult Date 11/26/18 Date/Time of Note DATE: 11/27/18 TIME: 07:49 Subjective NO acute events - H/H trending down - in a. fib - not on anti-coagulation now - awaiting Eliseo catheter for HD ROS: No fever, no chills, no nausea, no vomiting, no diarrhea/constipation - per nurse Objective Vitals Vital Signs Date Temp Pulse Resp B/P (MAP) Pulse Ox O2 O2 Flow FiO2 Time Delivery Rate 11/27/18 Nasal 2.0 07:30 Cannula 11/27/18 83 14 94/62 (73) 97 06:00 11/27/18 98.5 04:00 11/26/18 27 04:38 Intake and Output 11/26/18 11/26/18 11/27/18 1515:00 23:00 07:00 IntakeIntake Total 0 ml 710 ml 560 ml OutputOutput Total 10 ml 0 ml 0 ml BalanceBalance -10 ml 710 ml 560 ml Exam General: WN/WD/NAD, AOx 0 confused HEENT: Unicetric/atraumatic/EOMI (does not follow commands) NECK: JVD elevated, no thyromegaly Lymph: no lymphadenopathy HEART: IRregular with no S3, II/ systolic murmur at apex LUNGS: Coarse sounds ABD: soft, NT, ND, +BS : Intact Neuro: non focal SKIN: chronic changes EXT: trace edema Results/Medications Result Diagram: 11/27/18 0429 11/27/18 0429 Results 24 hrs Laboratory Tests Test 11/26/18 09:11 11/26/18 12:30 11/26/18 12:36 11/26/18 16:53 Bedside Glucose 137 150 99 Stool Occult Blood POSITIVE Test 11/26/18 18:38 11/26/18 20:15 11/27/18 00:29 11/27/18 01:36 Creatine Kinase 297 H 216 H Creatine Kinase 0.7 0.7 Index Creatinine Kinase MB 2.17 1.60 (Mass) Troponin I 0.104 0.121 H Bedside Glucose 126 151 Test 11/27/18 04:29 11/27/18 05:09 White Blood Count 10.1 # Red Blood Count 2.51 L Hemoglobin 7.5 L Hematocrit 23.5 L Mean Corpuscular 93.6 Volume Mean Corpuscular 29.9 Hemoglobin Mean Corpuscular 31.9 L Hemoglobin Concent Red Cell 15.2 H Distribution Width Platelet Count 117 L Mean Platelet Volume 12.6 H Immature 0.600 H Granulocytes % Neutrophils % 86.1 H Lymphocytes % 6.0 L Monocytes % 5.8 Eosinophils % 1.4 Basophils % 0.1 Nucleated Red Blood 0.2 H Cells % Immature 0.060 H Granulocytes # Neutrophils # 8.7 H Lymphocytes # 0.6 L Monocytes # 0.6 Eosinophils # 0.1 Basophils # 0.0 Nucleated Red Blood 0.0 Cells # Sodium Level 138 Potassium Level 4.4 Chloride Level 103 Carbon Dioxide Level 21 Anion Gap 14 H Blood Urea Nitrogen 118 H Creatinine 8.10 H Est Glomerular Filtrat Rate mL/min Glucose Level 132 Calcium Level 7.4 L Phosphorus Level 8.0 H Magnesium Level 3.6 H Creatine Kinase 184 Creatine Kinase 0.6 Index Creatinine Kinase MB 1.15 (Mass) Troponin I 0.115 Bedside Glucose 160 Home Meds Reported Medications Alprazolam* (Alprazolam*) 0.25 Mg Tablet, 0.25 MG PO NEEDED PRN for ANXIETY, TAB 11/26/18 Magnesium Oxide* (Mag-Oxide*) 400 Mg Tablet, 400 MG PO BID, TAB 11/26/18 Losartan Potassium* (Losartan Potassium*) 50 Mg Tablet, 50 MG PO BID PRN for NEEDED, TAB 11/26/18 Atorvastatin Calcium* (Atorvastatin Calcium*) 20 Mg Tablet, 20 MG PO QHS, #30 TAB 11/26/18 Potassium Chloride* (Potassium Chloride*) 8 Meq Capsule.er, 8 MEQ PO DAILY, CAP 11/26/18 Dronedarone Hydrochloride* (Multaq*) 400 Mg Tablet, 400 MG PO BID, TAB 11/26/18 Insulin Aspart (Novolog) 100 Unit/1 Ml Cartridge, 8 UNIT SQ AC BREAKFAST DINNER 11/26/18 Clopidogrel Bisulfate* (Clopidogrel Bisulfate*) 75 Mg Tablet, 75 MG PO DAILY, #30 TAB 11/26/18 Carvedilol* (Carvedilol*) 3.125 Mg Tablet, 3.125 MG PO BID, #60 TAB 11/26/18 Gabapentin* (Gabapentin*) 300 Mg Capsule, 300 MG PO DAILY, #60 CAP NEEDED 11/26/18 Aspirin* (Aspirin* EC) 81 Mg Tablet.dr, 81 MG PO DAILY, TAB 11/26/18 Amlodipine Besylate* (Amlodipine Besylate*) 10 Mg Tablet, 10 MG PO DAILY, #30 TAB TAKE NEEDED 11/26/18 Famotidine* (Famotidine*) 20 Mg Tablet, 20 MG PO BID, #30 TAB 11/26/18 Furosemide* (Furosemide*) 40 Mg Tablet, 40 MG PO BID, TAB 11/26/18 Levothyroxine Sodium* (Levothyroxine Sodium*) 125 Mcg Tablet, 125 MCG PO BEFORE BREAKFAST, #30 TAB 11/26/18 Bisacodyl (Ducodyl) 5 Mg Tablet.dr, 5 MG PO NEEDED 11/26/18 Ergocalciferol (Vitamin D2) (VITAMIN D2) 50,000 Unit Capsule, 79389 UNIT PO Q SAT, CAP 11/26/18 Lisinopril* (Lisinopril*) 5 Mg Tablet, 5 MG PO DAILY, #30 TAB TAKE NEEDED 11/26/18 Clonidine Hcl* (Clonidine Hcl*) 0.2 Mg Tablet, 0.2 MG PO BID PRN for HTN, TAB 11/26/18 Clonidine Patch (CLONIDINE PATCH) 0.2 Mg/24 Hr Patch, 1 PATCH.WK TD Q7D, #4 PATCH.WK 11/26/18 Hydralazine Hcl* (Apresoline*) 50 Mg Tab, 50 MG PO BID PRN for HTN, #60 TAB TAKE NEEDED 11/26/18 Insulin Glargine,Hum.rec.anlog (Basaglar Kwikpen U-100) 100 Unit/1 Ml Insuln.p en, 40 UNIT SC QHS, EA 11/26/18 Docusate Sodium* (Colace*) 250 Mg Capsule, 250 MG PO BID, #60 CAP 11/26/18 Ferrous Sulfate* (Ferrous Sulfate*) 325 Mg Tabec, 325 MG PO BID, TAB 11/26/18 Medications Current Medications Hydralazine HCl (Apresoline) 10 mg Q6H PRN IV SBP >160; Start 11/25/18 at 14:00 Ondansetron HCl (Zofran Inj) 4 mg Q4H PRN IV NAUSEA AND/OR VOMITING; Start 11/25/18 at 14:00 Insulin Glargine (Lantus) 10 units DAILY@0800 SC Last administered on 11/26/18at 10:00; Admin Dose 10 UNITS; Start 11/26/18 at 08:00 Insulin Aspart (Novolog Insulin Pen) NOVOLOG *MILD* ALGORI... Q4 SC Last administered on 11/27/18at 05:16; Admin Dose 1 UNIT; Start 11/25/18 at 17:00 Albuterol/ Ipratropium (Duoneb) 3 ml Q6H RESP THERAPY PRN HHN SHORTNESS OF BREATH Last administered on 11/26/18at 20:17; Admin Dose 3 ML; Start 11/25/18 at 14:00 Dextrose/Sodium Chloride 1,000 ml @ 80 mls/hr [id number] IV Last administered on 11/27/18at 05:10; Admin Dose 80 MLS/HR; Start 11/25/18 at 14:00 Acetaminophen (Tylenol Supp) 650 mg Q4H PRN [place] MILD PAIN(1-3) OR TEMP>38C; Start 11/25/18 at 14:00 Miscellaneous Information 1 ea NOTE XX ; Start 11/25/18 at 14:30 Glucose (Glutose) 15 gm Q15M PRN PO DECREASED GLUCOSE; Start 11/25/18 at 14:30 Glucose (Glutose) 22.5 gm Q15M PRN PO DECREASED GLUCOSE; Start 11/25/18 at 14:30 Dextrose (D50w Syringe) 25 ml Q15M PRN IV DECREASED GLUCOSE; Start 11/25/18 at 14:30 Dextrose (D50w Syringe) 50 ml Q15M PRN IV DECREASED GLUCOSE; Start 11/25/18 at 14:30 Glucagon (Glucagen) 1 mg Q15M PRN IM DECREASED GLUCOSE; Start 11/25/18 at 14:30 Glucose (Glutose) 15 gm Q15M PRN BUCCAL DECREASED GLUCOSE; Start 11/25/18 at 14:30 Famotidine (Pepcid Iv) 20 mg DAILY IV Last administered on 11/26/18at 09:59; Admin Dose 20 MG; Start 11/25/18 at 15:00 Budesonide (Pulmicort (Neb)) 0.5 mg BID RESP THERAPY HHN Last administered on 11/26/18at 20:17; Admin Dose 0.5 MG; Start 11/26/18 at 09:00 Phenylephrine HCl 250 ml @ 75 mls/hr TITRATE IV ; Start 11/26/18 at 06:30 IV Flush (NS 10 ml) 10 ml PRN PRN IV IV PROTOCOL; Start 11/26/18 at 14:00 Metoprolol Tartrate (Lopressor) 5 mg Q4H PRN IV HR>110 Hold SBP<100; Start 11/26/18 at 18:00 Assessment/Plan Hospital Course (Demo Recall) 1. Hypotension, borderline, not on pressure support at this time - stable now - con't to follow 2. Atrial fibrillation, primarily rate controlled off of antihypertensives at this time - not anti-coag now r/o GIB and decreased H/H 3. Anemia, worsening with guaiac positive stool consistent with gastrointestinal bleed - blood Rx to consider 4. Diabetes mellitus. 5. Acute on chronic renal failure, being initiated on hemodialysis- awaiting Eliseo now 6. Altered mental state- unchanged 7. Diastolic congestive heart failure due to a preserved EF by most recent echo and findings by chest x-ray - remove fluid with HD. 8. History of coronary artery disease, nonobstructive by outside hospital catheterization - no intervention planned now. 9. Shortness of breath with hypothyroidism. 10. Diabetes mellitus. ALFRED PEPE MD Nov 27, 2018 07:51
[2018-11-27] MEDS ORDERED: EPOETIN ALFA-EPBX (ESRD) 10,000 UNIT/ML VIAL SC ONE (08:30)
[2018-11-27] MEDS: INSULIN GLARGINE [LANTus] (100 UNITS/ML) SYG SC SCH (08:46)
[2018-11-27] MEDS: FAMOTIDINE 20 MG INJ IV SCH (08:48)
--- NOTE | 2018-11-27 09:38 | CONS ---
Assessment/Plan Assessment/Plan Assessment/Plan (Daily) Assessment and recommendations; 1. Patient admitted with hypotension due to severe anemia with improvement in blood pressure patient has not required pressor support. 2. Acute enteropathy likely metabolic in etiology from acute renal failure. 3. Anemia and thrombocytopenia. 4. Chronic atrial fibrillation. 5. Prior history of colon cancer. Continue current supportive care. Patient will be dialyzed today. Likely that would result in improved mental status. Consultation Date/Type/Reason Admit Date/Time Nov 25, 2018 at 13:18 Initial Consult Date 11/26/18 Type of Consult Pulmonary/critical care Patient is a 78-year-old lady who was admitted for altered mental status. Further workup has revealed significant anemia with worsening chronic renal failure with severe elevation in serum creatinine. Since admission however patient mental status has improved significantly to the point with the patient always communicative and awake and alert. Patient also is mildly hypotensive likely due to anemia. She denies any shortness of breath any chest pain. Any nausea vomiting. Past medical history; 1. Chronic renal insufficiency, 2. CHF. 3. Hypertension. 4. History of colon cancer. Status post partial colectomy. 5. Chronic atrial fibrillation. 6. Apparently chronic anemia. Medications; reviewed. Allergies; none. Social history; patient never smoked. Family history; noncontributory. 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 Review of systems; denies any chest pain, shortness of breath has improved. Denies any abdominal pain, nausea vomiting. General exam; elderly female, awake. Currently no distress. Date/Time of Note DATE: 11/27/18 TIME: 09:36 24 HR Interval Summary Free Text/Dictation Patient's condition is hemodynamically stable. Still exhibiting poor mental status. General exam; elderly female, currently in no distress. Minimally responsive. Exam/Review of Systems Exam Vitals Vital Signs Date Temp Pulse Resp B/P (MAP) Pulse Ox O2 O2 Flow FiO2 Time Delivery Rate 11/27/18 79 08:00 11/27/18 Nasal 2.0 07:30 Cannula 11/27/18 14 94/62 (73) 97 06:00 11/27/18 98.5 04:00 11/26/18 27 04:38 Intake and Output 11/26/18 11/26/18 11/27/18 1515:00 23:00 07:00 IntakeIntake Total 0 ml 710 ml 560 ml OutputOutput Total 10 ml 0 ml 0 ml BalanceBalance -10 ml 710 ml 560 ml Exam H EENT exam; supple neck, no JVD. No lymphadenopathy. Midline trachea. No thyromegaly. Patient has fair dentition. Chest exam; diminished but clear breath sounds. S1-S2 audible, no murmurs. I rregular rhythm. Abdomen exam; soft, protuberant. No organomegaly. Bowel sounds audible. Extremity exam; trace edema. [employer] exam; patient is lethargic. Results Result Diagram: 11/27/18 0429 11/27/18 0429 Results 24hrs Laboratory Tests Test 11/26/18 12:30 11/26/18 12:36 11/26/18 16:53 11/26/18 18:38 Stool Occult Blood POSITIVE Bedside Glucose 150 99 Creatine Kinase 297 H Creatine Kinase 0.7 Index Creatinine Kinase MB 2.17 (Mass) Troponin I 0.104 Test 11/26/18 20:15 11/27/18 00:29 11/27/18 01:36 11/27/18 04:29 Bedside Glucose 126 151 Creatine Kinase 216 H 184 Creatine Kinase 0.7 0.6 Index Creatinine Kinase MB 1.60 1.15 (Mass) Troponin I 0.121 H 0.115 White Blood Count 10.1 # Red Blood Count 2.51 L Hemoglobin 7.5 L Hematocrit 23.5 L Mean Corpuscular 93.6 Volume Mean Corpuscular 29.9 Hemoglobin Mean Corpuscular 31.9 L Hemoglobin Concent Red Cell 15.2 H Distribution Width Platelet Count 117 L Mean Platelet Volume 12.6 H Immature 0.600 H Granulocytes % Neutrophils % 86.1 H Lymphocytes % 6.0 L Monocytes % 5.8 Eosinophils % 1.4 Basophils % 0.1 Nucleated Red Blood 0.2 H Cells % Immature 0.060 H Granulocytes # Neutrophils # 8.7 H Lymphocytes # 0.6 L Monocytes # 0.6 Eosinophils # 0.1 Basophils # 0.0 Nucleated Red Blood 0.0 Cells # Sodium Level 138 Potassium Level 4.4 Chloride Level 103 Carbon Dioxide Level 21 Anion Gap 14 H Blood Urea Nitrogen 118 H Creatinine 8.10 H Est Glomerular Filtrat Rate mL/min Glucose Level 132 Calcium Level 7.4 L Phosphorus Level 8.0 H Magnesium Level 3.6 H Test 11/27/18 04:30 11/27/18 05:09 11/27/18 08:42 Iron Level 18 L Total Iron Binding 206 L Capacity Percent Iron 9 L Saturation Ferritin 400.0 H Bedside Glucose 160 178 Medications Medication Current Medications Hydralazine HCl (Apresoline) 10 mg Q6H PRN IV SBP >160; Start 11/25/18 at 14:00 Ondansetron HCl (Zofran Inj) 4 mg Q4H PRN IV NAUSEA AND/OR VOMITING; Start 11/25/18 at 14:00 Insulin Glargine (Lantus) 10 units DAILY@0800 SC Last administered on 11/27/18at 08:46; Admin Dose 10 UNITS; Start 11/26/18 at 08:00 Insulin Aspart (Novolog Insulin Pen) NOVOLOG *MILD* ALGORI... Q4 SC Last administered on 11/27/18at 08:48; Admin Dose 1 UNIT; Start 11/25/18 at 17:00 Albuterol/ Ipratropium (Duoneb) 3 ml Q6H RESP THERAPY PRN HHN SHORTNESS OF BREATH Last administered on 11/26/18at 20:17; Admin Dose 3 ML; Start 11/25/18 at 14:00 Dextrose/Sodium Chloride 1,000 ml @ 80 mls/hr [id number] IV Last administered on 11/27/18at 05:10; Admin Dose 80 MLS/HR; Start 11/25/18 at 14:00 Acetaminophen (Tylenol Supp) 650 mg Q4H PRN [place] MILD PAIN(1-3) OR TEMP>38C; Start 11/25/18 at 14:00 Miscellaneous Information 1 ea NOTE XX ; Start 11/25/18 at 14:30 Glucose (Glutose) 15 gm Q15M PRN PO DECREASED GLUCOSE; Start 11/25/18 at 14:30 Glucose (Glutose) 22.5 gm Q15M PRN PO DECREASED GLUCOSE; Start 11/25/18 at 14:30 Dextrose (D50w Syringe) 25 ml Q15M PRN IV DECREASED GLUCOSE; Start 11/25/18 at 14:30 Dextrose (D50w Syringe) 50 ml Q15M PRN IV DECREASED GLUCOSE; Start 11/25/18 at 14:30 Glucagon (Glucagen) 1 mg Q15M PRN IM DECREASED GLUCOSE; Start 11/25/18 at 14:30 Glucose (Glutose) 15 gm Q15M PRN BUCCAL DECREASED GLUCOSE; Start 11/25/18 at 14:30 Famotidine (Pepcid Iv) 20 mg DAILY IV Last administered on 11/27/18at 08:48; Admin Dose 20 MG; Start 11/25/18 at 15:00 Budesonide (Pulmicort (Neb)) 0.5 mg BID RESP THERAPY HHN Last administered on 11/26/18at 20:17; Admin Dose 0.5 MG; Start 11/26/18 at 09:00 Phenylephrine HCl 250 ml @ 75 mls/hr TITRATE IV ; Start 11/26/18 at 06:30 IV Flush (NS 10 ml) 10 ml PRN PRN IV IV PROTOCOL; Start 11/26/18 at 14:00 Metoprolol Tartrate (Lopressor) 5 mg Q4H PRN IV HR>110 Hold SBP<100; Start 11/26/18 at 18:00 PERNELL BYRD Nov 27, 2018 09:38
[2018-11-27] MEDS: BUDESONIDE (NEB) 0.5MG/2ML AMP HHN SCH ×2 (11:19→20:35)
--- NOTE | 2018-11-27 13:38 | PN ---
DATE: 11/27/2018 SUBJECTIVE: The patient remains in serious condition. The patient remained hypotensive, was receivi ng IV fluids. Patient remains confused and obtunded. The patient is pending a Eliseo catheter plac ement. No other events noted. OBJECTIVE: VITAL SIGNS: Blood pressure is 94/62, respiration 14, pulse 83, temperature 98.5. HEENT: Head is normocephalic. NECK: Supple. HEART: Regular rate. LUNGS: Show diminished breath sounds at the base. ABDOMEN: Soft, nontender to palpation without rebound or guarding. EXTREMITIES: Negative for clubbing, cyanosis, no edema. DERMATOLOGIC: No rashes. MUSCULOSKELETAL: No joint effusion. NEUROLOGIC: No change in exam. MEDICATIONS: The patient's medications have been reviewed. LABORATORY DATA: From 11/27/2018 was reviewed. The patient's microbiology was reviewed. IMAGING STUDIES: Were reviewed. Cultures have been reviewed. MEDICATIONS: Have been reviewed. ASSESSMENT AND PLAN: 1. Oligoanuric acute kidney injury with a previous baseline creatinine around 3.0 mg/dL. Etiology o f acute kidney injury is likely secondary to acute tubular necrosis, possibly due to hemodynamics, qu estionable sepsis. The patient remains in injury phase of acute tubular necrosis. The patient is pe nding hemodialysis once a Eliseo catheter is placed. Will consult surgery again for a Eliseo irvin ter placement. Anticipate dialysis daily for solute clearance and volume removal. Will monitor hemo dynamics closely. Otherwise, continue current treatment plan, supportive care, renally dose all meds . 3. Anemia secondary to chronic kidney disease. Continue to monitor hemoglobin and hematocrit levels . Will give Epogen as needed. 4. Mineral bone disorder. Monitor calcium and phosphorus levels. Anticipate solute clearance with hemodialysis. 5. Encephalopathy. Etiology secondary to uremia. Continue medical management. Anticipate hemodial ysis. 6. Coronary artery disease. Continue current treatment plan. 7. Diabetes. Continue current insulin regimen. 8. Hypothyroidism. Continue Synthroid. 9. History of asthma. Continue current treatment plan. 10. History of atrial fibrillation. 11. History of thrombocytopenia. 12. Hypertension. The patient is receiving IV fluids, continue to monitor closely. Dictated By: SUSY ABARCA/STEPHEN Conf#: [id number] DID#: [id number] CC: NEREIDA MCQUEEN MD;*End*
--- NOTE | 2018-11-27 15:53 | PN ---
Date/Time of Note Date/Time of Note DATE: 11/27/18 TIME: 15:45 Assessment/Plan VTE Prophylaxis Risk score (from Ns)>0 risk: 12 [place] [facility] [place] Pharmacological prophylaxis: NA/contraindicated Pharm contraindication: thrombocytopenia Lines/Catheters IV C[facility] Type [facility] PICC Line Central line still needed: Yes Urinary Cath still in place: Yes Reason Cath still needed: urinary retention Assessment/Plan Hospital Course Patient with generalized weakness and shortness of breath on exertion continues on supplemental oxygen via nasal cannula. Pending hemodialysis catheter placement and initiation of dialysis. Assessment/Plan -Acute kidney injury on chronic kidney disease. Plan for hemodialysis while he be placed. Dr. Sadler is following in nephrology consultation. -Acute metabolic encephalopathy. CT revealed white matter disease compatible with chronic small vessel ischemia. -Atrial fibrillation. Dr. Sy is following in cardiology consultation. -CHF -Hypertension -Anemia multifactorial chronic disease and possible GI bleed. Stool for OB is positive. Dr. Schaffer is asked to see patient in gastroenterology consultation. -Diabetes. Continue Lantus and sliding scale insulin. -Hypothyroidism. Continue Synthroid. -Asthma. Continue Pulmicort. -Thrombocytopenia. Critical care time spent is 30 minutes. Further recommendations based on clinical course. Plan of care discussed with Dr. Lind. Result Diagram: 11/27/18 0429 11/27/18 0429 Results 24hrs Laboratory Tests Test 11/26/18 16:53 11/26/18 18:38 11/26/18 20:15 11/27/18 00:29 Bedside Glucose 99 126 Creatine Kinase 297 H 216 H Creatine Kinase 0.7 0.7 Index Creatinine Kinase MB 2.17 1.60 (Mass) Troponin I 0.104 0.121 H Test 11/27/18 01:36 11/27/18 04:29 11/27/18 04:30 11/27/18 05:09 Bedside Glucose 151 160 White Blood Count 10.1 # Red Blood Count 2.51 L Hemoglobin 7.5 L Hematocrit 23.5 L Mean Corpuscular 93.6 Volume Mean Corpuscular 29.9 Hemoglobin Mean Corpuscular 31.9 L Hemoglobin Concent Red Cell 15.2 H Distribution Width Platelet Count 117 L Mean Platelet Volume 12.6 H Immature 0.600 H Granulocytes % Neutrophils % 86.1 H Lymphocytes % 6.0 L Monocytes % 5.8 Eosinophils % 1.4 Basophils % 0.1 Nucleated Red Blood 0.2 H Cells % Immature 0.060 H Granulocytes # Neutrophils # 8.7 H Lymphocytes # 0.6 L Monocytes # 0.6 Eosinophils # 0.1 Basophils # 0.0 Nucleated Red Blood 0.0 Cells # Sodium Level 138 Potassium Level 4.4 Chloride Level 103 Carbon Dioxide Level 21 Anion Gap 14 H Blood Urea Nitrogen 118 H Creatinine 8.10 H Est Glomerular Filtrat Rate mL/min Glucose Level 132 Calcium Level 7.4 L Phosphorus Level 8.0 H Magnesium Level 3.6 H Creatine Kinase 184 Creatine Kinase 0.6 Index Creatinine Kinase MB 1.15 (Mass) Troponin I 0.115 Iron Level 18 L Total Iron Binding 206 L Capacity Percent Iron 9 L Saturation Ferritin 400.0 H Test 11/27/18 08:42 11/27/18 13:08 Bedside Glucose 178 146 Exam/Review of Systems Exam Vitals Vital Signs Date Temp Pulse Resp B/P (MAP) Pulse Ox O2 O2 Flow FiO2 Time Delivery Rate 11/27/18 87 12:00 11/27/18 14 82 Nasal 2.0 11:21 Cannula 11/27/18 110/51 11:00 (70) 11/27/18 98.4 08:00 11/26/18 27 04:38 Intake and Output 11/26/18 11/26/18 11/27/18 1515:00 23:00 07:00 IntakeIntake Total 0 ml 710 ml 640 ml OutputOutput Total 10 ml 0 ml 0 ml BalanceBalance -10 ml 710 ml 640 ml Exam Constitutional: alert, oriented Respiratory: diminished breath sounds Cardiovascular: irregular rhythm Gastrointestinal: soft, non-tender Musculoskeletal: nl extremities to inspection Extremities: normal pulses Neurological: nl mental status, lethargic Skin: nl turgor Results Results 24hrs Laboratory Tests Test 11/26/18 16:53 11/26/18 18:38 11/26/18 20:15 11/27/18 00:29 Bedside Glucose 99 126 Creatine Kinase 297 H 216 H Creatine Kinase 0.7 0.7 Index Creatinine Kinase MB 2.17 1.60 (Mass) Troponin I 0.104 0.121 H Test 11/27/18 01:36 11/27/18 04:29 11/27/18 04:30 11/27/18 05:09 Bedside Glucose 151 160 White Blood Count 10.1 # Red Blood Count 2.51 L Hemoglobin 7.5 L Hematocrit 23.5 L Mean Corpuscular 93.6 Volume Mean Corpuscular 29.9 Hemoglobin Mean Corpuscular 31.9 L Hemoglobin Concent Red Cell 15.2 H Distribution Width Platelet Count 117 L Mean Platelet Volume 12.6 H Immature 0.600 H Granulocytes % Neutrophils % 86.1 H Lymphocytes % 6.0 L Monocytes % 5.8 Eosinophils % 1.4 Basophils % 0.1 Nucleated Red Blood 0.2 H Cells % Immature 0.060 H Granulocytes # Neutrophils # 8.7 H Lymphocytes # 0.6 L Monocytes # 0.6 Eosinophils # 0.1 Basophils # 0.0 Nucleated Red Blood 0.0 Cells # Sodium Level 138 Potassium Level 4.4 Chloride Level 103 Carbon Dioxide Level 21 Anion Gap 14 H Blood Urea Nitrogen 118 H Creatinine 8.10 H Est Glomerular Filtrat Rate mL/min Glucose Level 132 Calcium Level 7.4 L Phosphorus Level 8.0 H Magnesium Level 3.6 H Creatine Kinase 184 Creatine Kinase 0.6 Index Creatinine Kinase MB 1.15 (Mass) Troponin I 0.115 Iron Level 18 L Total Iron Binding 206 L Capacity Percent Iron 9 L Saturation Ferritin 400.0 H Test 11/27/18 08:42 11/27/18 13:08 Bedside Glucose 178 146 Medications Medication Current Medications Hydralazine HCl (Apresoline) 10 mg Q6H PRN IV SBP >160; Start 11/25/18 at 14:00 Ondansetron HCl (Zofran Inj) 4 mg Q4H PRN IV NAUSEA AND/OR VOMITING; Start 11/25/18 at 14:00 Insulin Glargine (Lantus) 10 units DAILY@0800 SC Last administered on 11/27/18at 08:46; Admin Dose 10 UNITS; Start 11/26/18 at 08:00 Insulin Aspart (Novolog Insulin Pen) NOVOLOG *MILD* ALGORI... Q4 SC Last administered on 11/27/18at 13:10; Admin Dose 1 UNIT; Start 11/25/18 at 17:00 Albuterol/ Ipratropium (Duoneb) 3 ml Q6H RESP THERAPY PRN HHN SHORTNESS OF BREATH Last administered on 11/26/18at 20:17; Admin Dose 3 ML; Start 11/25/18 at 14:00 Acetaminophen (Tylenol Supp) 650 mg Q4H PRN [place] MILD PAIN(1-3) OR TEMP>38C; Start 11/25/18 at 14:00 Miscellaneous Information 1 ea NOTE XX ; Start 11/25/18 at 14:30 Glucose (Glutose) 15 gm Q15M PRN PO DECREASED GLUCOSE; Start 11/25/18 at 14:30 Glucose (Glutose) 22.5 gm Q15M PRN PO DECREASED GLUCOSE; Start 11/25/18 at 14:30 Dextrose (D50w Syringe) 25 ml Q15M PRN IV DECREASED GLUCOSE; Start 11/25/18 at 14:30 Dextrose (D50w Syringe) 50 ml Q15M PRN IV DECREASED GLUCOSE; Start 11/25/18 at 14:30 Glucagon (Glucagen) 1 mg Q15M PRN IM DECREASED GLUCOSE; Start 11/25/18 at 14:30 Glucose (Glutose) 15 gm Q15M PRN BUCCAL DECREASED GLUCOSE; Start 11/25/18 at 14:30 Famotidine (Pepcid Iv) 20 mg DAILY IV Last administered on 11/27/18at 08:48; Admin Dose 20 MG; Start 11/25/18 at 15:00 Budesonide (Pulmicort (Neb)) 0.5 mg BID RESP THERAPY HHN Last administered on 11/27/18at 11:19; Admin Dose 0.5 MG; Start 11/26/18 at 09:00 Phenylephrine HCl 250 ml @ 75 mls/hr TITRATE IV ; Start 11/26/18 at 06:30 IV Flush (NS 10 ml) 10 ml PRN PRN IV IV PROTOCOL; Start 11/26/18 at 14:00 Metoprolol Tartrate (Lopressor) 5 mg Q4H PRN IV HR>110 Hold SBP<100; Start at 18:00 Levothyroxine Sodium (Synthroid) 125 mcg DAILY@06 PO ; Start 11/28/18 at 06:00 GENNY SULLIVAN Nov 27, 2018 15:53
--- NOTE | 2018-11-27 18:12 | OPR ---
DATE OF OPERATION: PREOPERATIVE DIAGNOSIS: Renal failure. POSTOPERATIVE DIAGNOSIS: Renal failure. OPERATION PERFORMED: Right femoral hemodialysis catheter placement. SURGEON: Huey Bridges MD ANESTHESIA: Local. CONSENT: Risks, benefits, complications, alternative therapies were explained to the patient and the family. Consent was obtained. OPERATIVE TECHNIQUE: The patient was placed in supine position, prepped and draped in usual sterile fashion. A 1% lidocaine was used throughout the operation for local anesthesia. Access was gained i n the right femoral vein. Guidewire was advanced through without any difficulty. Subcutaneous tissu es were dilated. A 20 cm dialysis catheter was advanced over guidewire and secured to skin using robyn k sutures. Both ports of the catheter were aspirated and injected using heparinized saline solution. The patient tolerated the procedure well. Dictated By: HUEY BRIDGES MD FM/STEPHEN Conf#: [id number] DID#: [id number] CC: NEREIDA MCQUEEN MD; EVA LOPEZ MD;*End*
--- NOTE | 2018-11-27 19:27 | OPR ---
DATE OF OPERATION: PREOPERATIVE DIAGNOSIS: Renal failure. POSTOPERATIVE DIAGNOSIS: Renal failure. PROCEDURE: Right femoral hemodialysis catheter placement. SURGEON: Huey Bridges MD ANESTHESIA: Local. CONSENT: Risks, benefits, complications, alternative therapies explained to the patient and the [facility] ly. Consent obtained. OPERATIVE TECHNIQUE: The patient was placed in supine position, prepped and draped in usual sterile fashion. Timeout was called. I gained access in the right common femoral vein. Guidewire was advan davion through without any difficulty. Subcutaneous tissues were dilated. A 25 cm dialysis catheter ad vanced over guidewire, secured to skin using silk sutures. Both ports of the catheter were aspirated and injected using heparinized saline solution. The patient tolerated the procedure well. Dictated By: HUEY BRIDGES MD FM/NTS Conf#: [id number] DID#: [id number] CC: NEREIDA MCQUEEN MD;*EndCC*
[2018-11-27] MEDS ORDERED: HEPARIN 1000 UNITS/ML 10 ML INJ CATHETER ONE (20:30)
[2018-11-27] MEDS ORDERED: ALBUMIN HUMAN 25% 100 ML IV PRN (20:30)
[2018-11-28] VITALS (34 sets, daily range): BP systolic 109–152; BP diastolic 40–109; PULSE 70–111; RESP 13–29
[2018-11-28] MEDS: INSULIN ASPART [NOVOLOG] 3 ML PEN SC SCH ×6 (01:00→21:00)
[2018-11-28] MEDS: LEVOTHYROXINE 125 MCG TAB PO SCH (05:21)
[2018-11-28] MEDS ORDERED: CALCITRIOL 1 MCG INJ IV ONE (08:00)
--- NOTE | 2018-11-28 08:13 | PN ---
DATE: 11/28/2018 SUBJECTIVE: The patient had hemodialysis yesterday, tolerated well. No other acute events noted. OBJECTIVE: VITAL SIGNS: Blood pressure is 122/85, respirations 20, pulse 81, temperature 98.7. HEENT: Head is normocephalic. NECK: Supple. HEART: Regular rate. LUNGS: Show diminished breath sounds at the base. ABDOMEN: Soft, nontender to palpation without rebound or guarding. EXTREMITIES: Negative for clubbing, cyanosis. Trace edema. DERMATOLOGIC: No rashes. MUSCULOSKELETAL: No joint effusion. NEUROLOGIC: No change in exam. MEDICATIONS: Reviewed. LABORATORY DATA: Reviewed. ASSESSMENT AND PLAN: 1. Oligoanuric acute kidney injury with previous baseline creatinine of 3.0 mg/dL. Etiology of acut e kidney injury is secondary to acute tubular necrosis due to hemodynamics, possible sepsis. The pat ient remains in injury phase of acute tubular necrosis. The patient was initiated on hemodialysis ye sterday due to uremic symptoms. We will anticipate dialysis today and tomorrow for solute clearance. We will continue to monitor for any signs of renal recovery. 2. Anemia with iron deficiency. The patient will be started on IV Ferrlecit, monitor hemoglobin and hematocrit levels. We will continue Epogen with hemodialysis. 3. Mineral bone disorder, monitor calcium and phosphorus levels. Continue hemodialysis. 4. Encephalopathy secondary to uremia. Continue medical management. Continue dialysis. 5. Chronic artery disease. Continue current treatment plan. 6. Diabetes. Continue current insulin regimen. 7. Hypothyroidism. Continue Synthroid. 8. History of asthma. Continue current treatment plan. 9. History of atrial fibrillation. 10. History of thrombocytopenia. 11. Hypertension. Blood pressure controlled. Dictated By: SUSY CISNEROS DO NR/NTS Conf#: [id number] DID#: [id number] CC: EVA LOPEZ MD; NEREIDA MCQUEEN MD;*EndCC*
[2018-11-28] MEDS: ONDANSETRON 4 MG INJ IV PRN (08:49)
[2018-11-28] MEDS: INSULIN GLARGINE [LANTus] (100 UNITS/ML) SYG SC SCH (09:12)
[2018-11-28] MEDS: BUDESONIDE (NEB) 0.5MG/2ML AMP HHN SCH ×2 (09:13→20:32)
[2018-11-28] MEDS: FAMOTIDINE 20 MG INJ IV SCH (09:35)
--- NOTE | 2018-11-28 09:38 | CONS ---
Assessment/Plan Assessment/Plan Assessment/Plan (Daily) Assessment and recommendations; 1. Patient admitted for hypotension due to severe anemia status post blood transfusion. 2. Interval resolution of hypotension, likely from anemia. 3. Acute renal failure, now hemodialysis dependent. 4. Anemia and thrombocytopenia. 5. Chronic atrial fibrillation. 6. Prior history of colon cancer. Continue current supportive care. Patient to be transferred to medical floor. 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 Monitor H&H. Patient likely will need to have GI workup done for anemia. Consultation Date/Type/Reason Admit Date/Time Nov 25, 2018 at 13:18 Initial Consult Date 11/26/18 Type of Consult Pulmonary/critical care Patient is a 78-year-old lady who was admitted for altered mental status. Further workup has revealed significant anemia with worsening chronic renal failure with severe elevation in serum creatinine. Since admission however patient mental status has improved significantly to the point with the patient always communicative and awake and alert. Patient also is mildly hypotensive likely due to anemia. She denies any shortness of breath any chest pain. Any n ausea vomiting. Past medical history; 1. Chronic renal insufficiency, 2. CHF. 3. Hypertension. 4. History of colon cancer. Status post partial colectomy. 5. Chronic atrial fibrillation. 6. Apparently chronic anemia. Medications; reviewed. Allergies; none. Social history; patient never smoked. Family history; noncontributory. 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 Review of systems; denies any chest pain, shortness of breath has improved. Denies any abdominal pain, nausea vomiting. General exam; elderly female, awake. Currently no distress. Date/Time of Note DATE: 11/28/18 TIME: 09:36 24 HR Interval Summary Free Text/Dictation Patient's condition is continually improving with improving mental status. Patient however still showing occasional agitation. Has remained hemodynamically stable. General exam; elderly female, awake and responsive. Currently in no distress. Exam/Review of Systems Exam Vitals Vital Signs Date Temp Pulse Resp B/P (MAP) Pulse Ox O2 O2 Flow FiO2 Time Delivery Rate 11/28/18 85 08:09 11/28/18 20 122/55 96 Nasal 06:00 (77) Cannula 11/28/18 98.7 04:00 11/27/18 2.0 20:35 11/26/18 27 04:38 Intake and Output 11/27/18 11/27/18 11/28/18 1515:00 23:00 07:00 IntakeIntake Total 280 ml 15 ml 45 ml OutputOutput Total 0 ml 1215 ml 50 ml BalanceBalance 280 ml -1200 ml -5 ml Exam H EENT exam; supple neck, no JVD. No lymphadenopathy. Midline trachea. No thyromegaly. There is very mild right subconjunctival hematoma. Dentition is fair. Chest exam; diminished but clear breath sounds. S1-S2 audible, no murmurs. Irregular rhythm. Abdomen exam; soft, nontender. No organomegaly. Bowel sounds audible. Extremity exam; trace edema. TURNER IN exam; no focal motor deficit. Results Result Diagram: 11/28/18 0330 11/28/18 0330 Results 24hrs Laboratory Tests Test 11/27/18 13:08 11/27/18 16:48 11/27/18 21:33 11/28/18 01:26 Bedside Glucose 146 132 98 93 Test 11/28/18 03:30 11/28/18 05:00 11/28/18 08:58 White Blood Count 9.5 Red Blood Count 2.50 L Hemoglobin 7.3 L Hematocrit 23.6 L Mean Corpuscular 94.4 Volume Mean Corpuscular 29.2 Hemoglobin Mean Corpuscular 30.9 L Hemoglobin Concent Red Cell 15.3 H Distribution Width Platelet Count 123 L Mean Platelet Volume 12.4 H Immature 0.500 H Granulocytes % Neutrophils % 85.2 H Lymphocytes % 6.1 L Monocytes % 6.5 Eosinophils % 1.6 Basophils % 0.1 Nucleated Red Blood 0.0 Cells % Immature 0.050 H Granulocytes # Neutrophils # 8.1 H Lymphocytes # 0.6 L Monocytes # 0.6 Eosinophils # 0.2 Basophils # 0.0 Nucleated Red Blood 0.0 Cells # Sodium Level 140 Potassium Level 4.0 Chloride Level 103 Carbon Dioxide Level 24 Anion Gap 13 Blood Urea Nitrogen 81 #H Creatinine 6.50 H Est Glomerular Filtrat Rate mL/min Glucose Level 86 # Calcium Level 7.9 L Phosphorus Level 6.2 H Magnesium Level 3.1 H Bedside Glucose 83 91 Medications Medication Current Medications Hydralazine HCl (Apresoline) 10 mg Q6H PRN IV SBP >160; Start 11/25/18 at 14:00 Ondansetron HCl (Zofran Inj) 4 mg Q4H PRN IV NAUSEA AND/OR VOMITING Last administered on 11/28/18at 08:49; Admin Dose 4 MG; Start 11/25/18 at 14:00 Insulin Glargine (Lantus) 10 units DAILY@0800 SC Last administered on 11/28/18at 09:12; Admin Dose 10 UNITS; Start 11/26/18 at 08:00 Insulin Aspart (Novolog Insulin Pen) NOVOLOG *MILD* ALGORI... Q4 SC Last administered on 11/27/18at 13:10; Admin Dose 1 UNIT; Start 11/25/18 at 17:00 Albuterol/ Ipratropium (Duoneb) 3 ml Q6H RESP THERAPY PRN HHN SHORTNESS OF BREATH Last administered on 11/26/18at 20:17; Admin Dose 3 ML; Start 11/25/18 at 14:00 Acetaminophen (Tylenol Supp) 650 mg Q4H PRN OR MILD PAIN(1-3) OR TEMP>38C; Start 11/25/18 at 14:00 Miscellaneous Information 1 ea NOTE XX ; Start 11/25/18 at 14:30 Glucose (Glutose) 15 gm Q15M PRN PO DECREASED GLUCOSE; Start 11/25/18 at 14:30 Glucose (Glutose) 22.5 gm Q15M PRN PO DECREASED GLUCOSE; Start 11/25/18 at 14:30 Dextrose (D50w Syringe) 25 ml Q15M PRN IV DECREASED GLUCOSE; Start 11/25/18 at 14:30 Dextrose (D50w Syringe) 50 ml Q15M PRN IV DECREASED GLUCOSE; Start 11/25/18 at 14:30 Glucagon (Glucagen) 1 mg Q15M PRN IM DECREASED GLUCOSE; Start 11/25/18 at 14:30 Glucose (Glutose) 15 gm Q15M PRN BUCCAL DECREASED GLUCOSE; Start 11/25/18 at 14:30 Famotidine (Pepcid Iv) 20 mg DAILY IV Last administered on 11/27/18at 08:48; Admin Dose 20 MG; Start 11/25/18 at 15:00 Budesonide (Pulmicort (Neb)) 0.5 mg BID RESP THERAPY HHN Last administered on 11/27/18at 20:35; Admin Dose 0.5 MG; Start 11/26/18 at 09:00 Phenylephrine HCl 250 ml @ 75 mls/hr TITRATE IV ; Start 11/26/18 at 06:30 IV Flush (NS 10 ml) 10 ml PRN PRN IV IV PROTOCOL; Start 11/26/18 at 14:00 Metoprolol Tartrate (Lopressor) 5 mg Q4H PRN IV HR>110 Hold SBP<100; Start 11/26/18 at 18:00 Levothyroxine Sodium (Synthroid) 125 mcg DAILY@06 PO Last administered on 11/28/18at 05:21; Admin Dose 125 MCG; Start 11/28/18 at 06:00 Ferric Sodium Gluconate Complex 125 mg/Sodium Chloride 110 ml @ 110 mls/hr DAILY@1300 IVPB ; Start 11/28/18 at 13:00; Stop 12/02/18 at 13:59 Albumin Human 100 ml @ 100 mls/hr DURING DIALYSIS PRN IV HYPOTENTION DURING HD; Start 11/27/18 at 20:30 PERNELL BYRD Nov 28, 2018 09:38
--- NOTE | 2018-11-28 11:50 | PN ---
Date/Time of Note Date/Time of Note DATE: 11/28/18 TIME: 11:47 Assessment/Plan VTE Prophylaxis Risk score (from Ns)>0 risk: 6 SCD applied (from Ns): Yes Pharmacological prophylaxis: NA/contraindicated Pharm contraindication: bleeding, thrombocytopenia Lines/Catheters [facility] HD (TRIALYSIS) CATHETER Urinary Cath still in place: Yes Reason Cath still needed: urinary retention Assessment/Plan Hospital Course Patient is status post hemodialysis catheter placement yesterday, status post first hemodialysis last night with removal of 400 cc of fluids. Patient is awake alert to name however confused, pulled out PICC line early in the morning today. Atrial fibrillation at controlled rate, patient does not tolerate a nticoagulation. Assessment/Plan -Acute kidney injury on chronic kidney disease. Plan for hemodialysis while he be placed. Dr. Sadler is following in nephrology consultation. -Acute metabolic encephalopathy. CT revealed white matter disease compatible with chronic small vessel ischemia. -Atrial fibrillation. Dr. Sy is following in cardiology consultation. -CHF -Hypertension -Anemia multifactorial chronic disease and possible GI bleed. Stool for OB is positive. Dr. Schaffer is asked to see patient in gastroenterology consultation. -Diabetes. Continue Lantus and sliding scale insulin. -Hypothyroidism. Continue Synthroid. -Asthma. Continue Pulmicort. -Thrombocytopenia. Critical care time spent is 30 minutes. Further recommendations based on clinical course. Plan of care discussed with Dr. Lind. Result Diagram: 11/28/18 0330 11/28/18 0330 Results 24hrs Laboratory Tests Test 11/27/18 13:08 11/27/18 16:48 11/27/18 21:33 11/28/18 01:26 Bedside Glucose 146 132 98 93 Test 11/28/18 03:30 11/28/18 05:00 11/28/18 08:58 White Blood Count 9.5 Red Blood Count 2.50 L Hemoglobin 7.3 L Hematocrit 23.6 L Mean Corpuscular 94.4 Volume Mean Corpuscular 29.2 Hemoglobin Mean Corpuscular 30.9 L Hemoglobin Concent Red Cell 15.3 H Distribution Width Platelet Count 123 L Mean Platelet Volume 12.4 H Immature 0.500 H Granulocytes % Neutrophils % 85.2 H Lymphocytes % 6.1 L Monocytes % 6.5 Eosinophils % 1.6 Basophils % 0.1 Nucleated Red Blood 0.0 Cells % Immature 0.050 H Granulocytes # Neutrophils # 8.1 H Lymphocytes # 0.6 L Monocytes # 0.6 Eosinophils # 0.2 Basophils # 0.0 Nucleated Red Blood 0.0 Cells # Sodium Level 140 Potassium Level 4.0 Chloride Level 103 Carbon Dioxide Level 24 Anion Gap 13 Blood Urea Nitrogen 81 #H Creatinine 6.50 H Est Glomerular Filtrat Rate mL/min Glucose Level 86 # Calcium Level 7.9 L Phosphorus Level 6.2 H Magnesium Level 3.1 H Bedside Glucose 83 91 Exam/Review of Systems Exam Vitals Vital Signs Date Temp Pulse Resp B/P (MAP) Pulse Ox O2 O2 Flow FiO2 Time Delivery Rate 11/28/18 84 29 112/91 96 Nasal 10:00 (98) Cannula 11/28/18 2.0 08:20 11/28/18 98.4 07:00 11/26/18 27 04:38 Intake and Output 11/27/18 11/27/18 11/28/18 1515:00 23:00 07:00 IntakeIntake Total 280 ml 15 ml 45 ml OutputOutput Total 0 ml 1215 ml 50 ml BalanceBalance 280 ml -1200 ml -5 ml Exam Constitutional: alert, confused Respiratory: diminished breath sounds Cardiovascular: irregular rhythm Gastrointestinal: soft, non-tender Musculoskeletal: nl extremities to inspection Extremities: normal pulses Right femoral Eliseo catheter Results Results 24hrs Laboratory Tests Test 11/27/18 13:08 11/27/18 16:48 11/27/18 21:33 11/28/18 01:26 Bedside Glucose 146 132 98 93 Test 11/28/18 03:30 11/28/18 05:00 11/28/18 08:58 White Blood Count 9.5 Red Blood Count 2.50 L Hemoglobin 7.3 L Hematocrit 23.6 L Mean Corpuscular 94.4 Volume Mean Corpuscular 29.2 Hemoglobin Mean Corpuscular 30.9 L Hemoglobin Concent Red Cell 15.3 H Distribution Width Platelet Count 123 L Mean Platelet Volume 12.4 H Immature 0.500 H Granulocytes % Neutrophils % 85.2 H Lymphocytes % 6.1 L Monocytes % 6.5 Eosinophils % 1.6 Basophils % 0.1 Nucleated Red Blood 0.0 Cells % Immature 0.050 H Granulocytes # Neutrophils # 8.1 H Lymphocytes # 0.6 L Monocytes # 0.6 Eosinophils # 0.2 Basophils # 0.0 Nucleated Red Blood 0.0 Cells # Sodium Level 140 Potassium Level 4.0 Chloride Level 103 Carbon Dioxide Level 24 Anion Gap 13 Blood Urea Nitrogen 81 #H Creatinine 6.50 H Est Glomerular Filtrat Rate mL/min Glucose Level 86 # Calcium Level 7.9 L Phosphorus Level 6.2 H Magnesium Level 3.1 H Bedside Glucose 83 91 Medications Medication Current Medications Hydralazine HCl (Apresoline) 10 mg Q6H PRN IV SBP >160; Start 11/25/18 at 14:00 Ondansetron HCl (Zofran Inj) 4 mg Q4H PRN IV NAUSEA AND/OR VOMITING Last administered on 11/28/18at 08:49; Admin Dose 4 MG; Start 11/25/18 at 14:00 Insulin Glargine (Lantus) 10 units DAILY@0800 SC Last administered on 11/28/18at 09:12; Admin Dose 10 UNITS; Start 11/26/18 at 08:00 Insulin Aspart (Novolog Insulin Pen) NOVOLOG *MILD* ALGORI... Q4 SC Last administered on 11/27/18at 13:10; Admin Dose 1 UNIT; Start 11/25/18 at 17:00 Albuterol/ Ipratropium (Duoneb) 3 ml Q6H RESP THERAPY PRN HHN SHORTNESS OF BREATH Last administered on 11/26/18at 20:17; Admin Dose 3 ML; Start 11/25/18 at 14:00 Acetaminophen (Tylenol Supp) 650 mg Q4H PRN HI MILD PAIN(1-3) OR TEMP>38C; Start 11/25/18 at 14:00 Miscellaneous Information 1 ea NOTE XX ; Start 11/25/18 at 14:30 Glucose (Glutose) 15 gm Q15M PRN PO DECREASED GLUCOSE; Start 11/25/18 at 14:30 Glucose (Glutose) 22.5 gm Q15M PRN PO DECREASED GLUCOSE; Start 11/25/18 at 14:30 Dextrose (D50w Syringe) 25 ml Q15M PRN IV DECREASED GLUCOSE; Start 11/25/18 at 14:30 Dextrose (D50w Syringe) 50 ml Q15M PRN IV DECREASED GLUCOSE; Start 11/25/18 at 14:30 Glucagon (Glucagen) 1 mg Q15M PRN IM DECREASED GLUCOSE; Start 11/25/18 at 14:30 Glucose (Glutose) 15 gm Q15M PRN BUCCAL DECREASED GLUCOSE; Start 11/25/18 at 14:30 Famotidine (Pepcid Iv) 20 mg DAILY IV Last administered on 11/28/18at 09:35; Admin Dose 20 MG; Start 11/25/18 at 15:00 Budesonide (Pulmicort (Neb)) 0.5 mg BID RESP THERAPY HHN Last administered on 11/27/18at 20:35; Admin Dose 0.5 MG; Start 11/26/18 at 09:00 Phenylephrine HCl 250 ml @ 75 mls/hr TITRATE IV ; Start 11/26/18 at 06:30 IV Flush (NS 10 ml) 10 ml PRN PRN IV IV PROTOCOL; Start 11/26/18 at 14:00 Metoprolol Tartrate (Lopressor) 5 mg Q4H PRN IV HR>110 Hold SBP<100; Start 11/26/18 at 18:00 Levothyroxine Sodium (Synthroid) 125 mcg DAILY@06 PO Last administered on 11/28/18at 05:21; Admin Dose 125 MCG; Start 11/28/18 at 06:00 Ferric Sodium Gluconate Complex 125 mg/Sodium Chloride 110 ml @ 110 mls/hr DAILY@1300 IVPB ; Start 11/28/18 at 13:00; Stop 12/02/18 at 13:59 Albumin Human 100 ml @ 100 mls/hr DURING DIALYSIS PRN IV HYPOTENTION DURING HD; Start 11/27/18 at 20:30 GENNY SULLIVAN Nov 28, 2018 11:50
--- NOTE | 2018-11-28 12:29 | CONS ---
Assessment/Plan Assessment/Plan Hospital Course (Demo Recall) IMPRESSION: 1. Hypotension-overall improved and not on pressors currently 2. Atrial fibrillation, primarily rate controlled off of antihypertensives at this time. 3. Anemia, worsening with guaiac positive stool consistent with gastrointestinal bleed. 4. Diabetes mellitus. 5. Acute on chronic renal failure, being initiated on hemodialysis. 6. Altered mental state. 7. Diastolic congestive heart failure due to a preserved EF by most recent echo and findings by chest x-ray. 8. History of coronary artery disease, nonobstructive by outside hospital catheterization. 9. Shortness of breath with hypothyroidism. 10. Diabetes mellitus. Recc: -ICU -HD for volume remova; -Follow HR/rhythm closely -not on anticoagulation secondary to GIB/anemia requiring transfusion Consultation Date/Type/Reason Admit Date/Time Nov 25, 2018 at 13:18 Initial Consult Date 11/26/18 Type of Consult Cardiology Reason for Consultation AF Requesting Provider: NEREIDA MCQUEEN MD Date/Time of Note DATE: 11/28/18 TIME: 12:25 Exam/Review of Systems Vital Signs Vitals Vital Signs Date Temp Pulse Resp B/P (MAP) Pulse Ox O2 O2 Flow FiO2 Time Delivery Rate 11/28/18 84 29 112/91 96 Nasal 10:00 (98) Cannula 11/28/18 2.0 08:20 11/28/18 98.4 07:00 11/26/18 27 04:38 Intake and Output 11/27/18 11/27/18 11/28/18 1515:00 23:00 07:00 IntakeIntake Total 280 ml 15 ml 45 ml OutputOutput Total 0 ml 1215 ml 50 ml BalanceBalance 280 ml -1200 ml -5 ml Exam Exam Review of Systems: CONSTITUTIONAL: No fevers, chills. PULMONARY: No sob CARDIOVASCULAR: No chest pain/palpitations GASTROINTESTINAL: No nausea/vomiting. GENITOURINARY: No hematuria/dysuria. MUSCULOSKELETAL: No myagias/arthalgias. PSYCHIATRIC: The patient denies depression. NEUROLOGIC: No weakness Constitutional: alert Psych: no complaints Head: normocephalic ENMT: mucosa pink and moist Neck: supple, jvd (9 cm water) Respiratory: diminished breath sounds (at bases/B) Cardiovascular: irregular rhythm Gastrointestinal: soft, non-tender Musculoskeletal: muscle tone (normal) Extremities: edema (none) Labs Result Diagram: 11/28/18 0330 11/28/18 0330 Results 24hrs Laboratory Tests Test 11/27/18 13:08 11/27/18 16:48 11/27/18 21:33 11/28/18 01:26 Bedside Glucose 146 132 98 93 Test 11/28/18 03:30 11/28/18 05:00 11/28/18 08:58 White Blood Count 9.5 Red Blood Count 2.50 L Hemoglobin 7.3 L Hematocrit 23.6 L Mean Corpuscular 94.4 Volume Mean Corpuscular 29.2 Hemoglobin Mean Corpuscular 30.9 L Hemoglobin Concent Red Cell 15.3 H Distribution Width Platelet Count 123 L Mean Platelet Volume 12.4 H Immature 0.500 H Granulocytes % Neutrophils % 85.2 H Lymphocytes % 6.1 L Monocytes % 6.5 Eosinophils % 1.6 Basophils % 0.1 Nucleated Red Blood 0.0 Cells % Immature 0.050 H Granulocytes # Neutrophils # 8.1 H Lymphocytes # 0.6 L Monocytes # 0.6 Eosinophils # 0.2 Basophils # 0.0 Nucleated Red Blood 0.0 Cells # Sodium Level 140 Potassium Level 4.0 Chloride Level 103 Carbon Dioxide Level 24 Anion Gap 13 Blood Urea Nitrogen 81 #H Creatinine 6.50 H Est Glomerular Filtrat Rate mL/min Glucose Level 86 # Calcium Level 7.9 L Phosphorus Level 6.2 H Magnesium Level 3.1 H Bedside Glucose 83 91 Medications Medications Current Medications Hydralazine HCl (Apresoline) 10 mg Q6H PRN IV SBP >160; Start 11/25/18 at 14:00 Ondansetron HCl (Zofran Inj) 4 mg Q4H PRN IV NAUSEA AND/OR VOMITING Last administered on 11/28/18at 08:49; Admin Dose 4 MG; Start 11/25/18 at 14:00 Insulin Glargine (Lantus) 10 units DAILY@0800 SC Last administered on 11/28/18at 09:12; Admin Dose 10 UNITS; Start 11/26/18 at 08:00 Insulin Aspart (Novolog Insulin Pen) NOVOLOG *MILD* ALGORI... Q4 SC Last administered on 11/27/18at 13:10; Admin Dose 1 UNIT; Start 11/25/18 at 17:00 Albuterol/ Ipratropium (Duoneb) 3 ml Q6H RESP THERAPY PRN HHN SHORTNESS OF BREATH Last administered on 11/26/18at 20:17; Admin Dose 3 ML; Start 11/25/18 at 14:00 Acetaminophen (Tylenol Supp) [address] MILD PAIN(1-3) OR TEMP>38C; Start 11/25/18 at 14:00 Miscellaneous Information 1 ea NOTE XX ; Start 11/25/18 at 14:30 Glucose (Glutose) 15 gm Q15M PRN PO DECREASED GLUCOSE; Start 11/25/18 at 14:30 Glucose (Glutose) 22.5 gm Q15M PRN PO DECREASED GLUCOSE; Start 11/25/18 at 14:30 Dextrose (D50w Syringe) 25 ml Q15M PRN IV DECREASED GLUCOSE; Start 11/25/18 at 14:30 Dextrose (D50w Syringe) 50 ml Q15M PRN IV DECREASED GLUCOSE; Start 11/25/18 at 14:30 Glucagon (Glucagen) 1 mg Q15M PRN IM DECREASED GLUCOSE; Start 11/25/18 at 14:30 Glucose (Glutose) 15 gm Q15M PRN BUCCAL DECREASED GLUCOSE; Start 11/25/18 at 14:30 Famotidine (Pepcid Iv) 20 mg DAILY IV Last administered on 11/28/18at 09:35; Admin Dose 20 MG; Start 11/25/18 at 15:00 Budesonide (Pulmicort (Neb)) 0.5 mg BID RESP THERAPY HHN Last administered on 11/27/18at 20:35; Admin Dose 0.5 MG; Start 11/26/18 at 09:00 Phenylephrine HCl 250 ml @ 75 mls/hr TITRATE IV ; Start 11/26/18 at 06:30 IV Flush (NS 10 ml) 10 ml PRN PRN IV IV PROTOCOL; Start 11/26/18 at 14:00 Metoprolol Tartrate (Lopressor) 5 mg Q4H PRN IV HR>110 Hold SBP<100; Start at 18:00 Levothyroxine Sodium (Synthroid) 125 mcg DAILY@06 PO Last administered on 11/28/18at 05:21; Admin Dose 125 MCG; Start 11/28/18 at 06:00 Ferric Sodium Gluconate Complex 125 mg/Sodium Chloride 110 ml @ 110 mls/hr DAILY@1300 IVPB ; Start 11/28/18 at 13:00; Stop 12/02/18 at 13:59 Albumin Human 100 ml @ 100 mls/hr DURING DIALYSIS PRN IV HYPOTENTION DURING HD; Start 11/27/18 at 20:30 CARMELO MAE Nov 28, 2018 12:29
[2018-11-28] MEDS: SOD FERRIC GLUC COMPLX 125 MG in SOD CHLORIDE 0.9% 100 ML IVPB SCH (13:00)
[2018-11-28] MEDS ORDERED: ACETAMINOPHEN 650MG/20.3ML CUP PO PRN (16:00)
[2018-11-28] MEDS ORDERED: CALCITRIOL 0.25 MCG CAP PO SCH (20:00)
--- NOTE | 2018-11-28 20:25 | CONS ---
DATE OF ADMISSION: 11/25/2018 DATE OF CONSULTATION: TYPE OF CONSULTATION: Gastroenterology. HISTORY OF PRESENT ILLNESS: The patient is a 78-year-old female with a history of hypertension, CHF, chronic kidney disease, diabetes mellitus, pulmonary embolism, colon cancer, status post surgery, at ria fibrillation admitted originally to [facility] for respiratory failure. The pa phillip was successfully treated, got stabilized and transferred to [place]. In the [place], the patient became hypotensive after a few days and was transferred to the intensive care unit for further manage ment. The patient is now stable. She is more alert, awake and communicating. GI consult was called in for anemia and positive stool guaiac. PAST MEDICAL HISTORY: Colon resection, removal of 1/3 of the colon, anemia. She had capsule endosco py and upper endoscopy, awaiting for report from the other hospital. I spoke to the daughter. SOCIAL HISTORY: Lives at home with family. ALLERGIES: NONE. PHYSICAL EXAMINATION: GENERAL: Alert, awake, communicating. Daughter is by the side of the patient. CARDIOVASCULAR: No murmur, gallop or click. LUNGS: Clear. ABDOMEN: Benign. EXTREMITIES: No edema. CENTRAL NERVOUS SYSTEMS: Grossly within normal limits. LABORATORY DATA: Hematocrit which was 24. Right now, it is 23. Stool for occult blood is positive. BUN is 81, creatinine 6.50. IMPRESSION: 1. Anemia due to the chronic gastrointestinal blood loss and also chronic disease. 2. Diabetes mellitus. 3. Thrombocytopenia. 4. Bronchial asthma. 5. Atrial fibrillation. 6. Renal failure. PLAN: At this point is to continue present care. The patient is on PPI. We will send for CEA level given the history of colon cancer and I am trying to get all the report from [facility]. Th e patient had a capsule endoscopy and EGD. I am not sure whether she had a colonoscopy or not. Dictated By: KASANDRA FLOYD MD PJ/NTS Conf#: [id number] DID#: [id number] CC: EVA LOPEZ MD; NEREIDA MCQUEEN MD;*EndCC*
[2018-11-29] VITALS (26 sets, daily range): BP systolic 106–178; BP diastolic 52–124; PULSE 67–110; RESP 16–26
[2018-11-29] MEDS: INSULIN ASPART [NOVOLOG] 3 ML PEN SC SCH ×6 (01:00→21:00)
[2018-11-29] MEDS: ONDANSETRON 4 MG INJ IV PRN (01:10)
[2018-11-29] MEDS ORDERED: ACETAMINOPHEN 1000MG/100ML IV 100 ML IVPB SCH (02:00)
[2018-11-29] MEDS: LEVOTHYROXINE 125 MCG TAB PO SCH ×2 (05:25→05:27)
[2018-11-29] MEDS: HALOPERIDOL 5 MG INJ IV PRN ×4 (05:35→20:52)
[2018-11-29] MEDS: BUDESONIDE (NEB) 0.5MG/2ML AMP HHN SCH ×2 (07:54→19:39)
[2018-11-29] MEDS ORDERED: ACETAMINOPHEN 1000MG/100ML IV 100 ML IVPB PRN (08:00)
--- NOTE | 2018-11-29 08:34 | PN ---
DATE: 11/29/2018 SUBJECTIVE: The patient remains agitated. No acute events overnight. No hemoptysis, hematemesis or hematochezia. OBJECTIVE: VITAL SIGNS: Blood pressure is a 153/52, respirations 19, pulse 86, temperature 98.5. HEENT: Head is normocephalic. NECK: Supple. HEART: Regular rate. LUNGS: Show diminished breath sounds at the base. ABDOMEN: Soft, nontender to palpation without rebound or guarding. EXTREMITIES: Negative for clubbing, cyanosis, no edema. DERMATOLOGIC: No rashes. MUSCULOSKELETAL: No joint effusion. NEUROLOGIC: No change in exam. MEDICATIONS: Reviewed. LABORATORY DATA: From 11/29/2018 was reviewed. ASSESSMENT AND PLAN: 1. Oligoanuric acute kidney injury with previous baseline creatinine of 3.0 mg/dL. Etiology of acut e kidney injury is secondary to acute tubular necrosis due to hemodynamics, sepsis. The patient curr ently is dialysis dependent, has had 2 sessions of hemodialysis. Plan is for a third session of dial ysis today for solute clearance and volume removal. Monitor for any signs of renal recovery. 2. Anemia with iron deficiency. The patient has IV Ferrlecit. Continue to monitor. Continue Epoge n. 3. Mineral bone disorder, monitor calcium and phosphorus levels. Continue hemodialysis. 4. Encephalopathy secondary to uremia. Continue to monitor. Continue dialysis. 5. Coronary artery disease. Continue current treatment plan. 6. Diabetes. Continue current insulin regimen. 7. Hypothyroidism. Continue Synthroid. 8. History of asthma. Continue current treatment plan. 9. History of atrial fibrillation. 10. History of thrombocytopenia. Continue to monitor. 11. Hypertension. Continue current blood pressure regimen. Continue ultrafiltration with dialysis. Dictated By: SUSY CISNEROS DO NR/NTS Conf#: [id number] DID#: [id number] CC: NEREIDA MCQUEEN MD; EVA LOPEZ MD;*End*
[2018-11-29] MEDS: FAMOTIDINE 20 MG INJ IV SCH (09:13)
[2018-11-29] MEDS: INSULIN GLARGINE [LANTus] (100 UNITS/ML) SYG SC SCH (12:14)
[2018-11-29] MEDS: SOD FERRIC GLUC COMPLX 125 MG in SOD CHLORIDE 0.9% 100 ML IVPB SCH (12:38)
--- NOTE | 2018-11-29 13:17 | CONS ---
Assessment/Plan Assessment/Plan Hospital Course (Demo Recall) IMPRESSION: 1. Hypotension-overall improved and not on pressors currently and now HTN 2. Atrial fibrillation, primarily rate controlled off of antihypertensives at this time. 3. Anemia, worsening with guaiac positive stool consistent with gastrointestinal bleed. 4. Diabetes mellitus. 5. Acute on chronic renal failure, being initiated on hemodialysis. 6. Altered mental state. 7. Diastolic congestive heart failure due to a preserved EF by most recent echo and findings by chest x-ray. 8. History of coronary artery disease, nonobstructive by outside hospital catheterization. 9. Shortness of breath with hypothyroidism. 10. Diabetes mellitus. Recc: -start standing antihypertensives -HD for volume removal -Follow HR/rhythm closely -not on anticoagulation secondary to GIB/anemia requiring transfusion Consultation Date/Type/Reason Admit Date/Time Nov 25, 2018 at 13:18 Initial Consult Date 11/26/18 Type of Consult Cardiology Reason for Consultation AF Requesting Provider: NEREIDA MCQUEEN MD Date/Time of Note DATE: 11/29/18 TIME: 13:07 Exam/Review of Systems Vital Signs Vitals Vital Signs Date Temp Pulse Resp B/P (MAP) Pulse Ox O2 O2 Flow FiO2 Time Delivery Rate 11/29/18 98.1 82 19 157/77 98 12:08 (103) 11/29/18 Nasal 2.0 08:30 Cannula 11/26/18 27 04:38 Intake and Output 11/28/18 11/28/18 11/29/18 1414:59 22:59 06:59 IntakeIntake Total 40 ml 20 ml 0 ml OutputOutput Total 50 ml 250 ml 1600 ml BalanceBalance -10 ml -230 ml -1600 ml Exam Exam Review of Systems: CONSTITUTIONAL: No fevers, chills. PULMONARY: No sob CARDIOVASCULAR: No chest pain/palpitations GASTROINTESTINAL: No nausea/vomiting. GENITOURINARY: No hematuria/dysuria. MUSCULOSKELETAL: No myagias/arthalgias. PSYCHIATRIC: The patient denies depression. NEUROLOGIC: No weakness Constitutional: alert Psych: no complaints Head: normocephalic ENMT: mucosa pink and moist Neck: supple, jvd (9 cm water) Respiratory: diminished breath sounds Cardiovascular: regular rate and rhythm Gastrointestinal: soft, non-tender Musculoskeletal: muscle tone (normal) Extremities: edema (none) Neurological: other (No focal deficits) Labs Result Diagram: 11/29/18 0400 11/29/18 0500 Results 24hrs Laboratory Tests Test 11/28/18 17:15 11/28/18 20:33 11/29/18 01:04 11/29/18 01:48 Bedside Glucose 123 119 118 Sodium Level 138 Potassium Level 3.9 Chloride Level 100 Carbon Dioxide Level 27 Anion Gap 11 Blood Urea Nitrogen 53 H Creatinine 4.98 #H Est Glomerular Filtrat Rate mL/min Glucose Level 129 # Calcium Level 8.0 L Phosphorus Level 4.7 Magnesium Level 2.7 H Test 11/29/18 04:00 11/29/18 05:00 11/29/18 05:24 11/29/18 07:58 White Blood Count 8.3 Red Blood Count 2.72 L Hemoglobin 8.1 L Hematocrit 25.8 L Mean Corpuscular 94.9 Volume Mean Corpuscular 29.8 Hemoglobin Mean Corpuscular 31.4 L Hemoglobin Concent Red Cell 15.4 H Distribution Width Platelet Count 126 L Mean Platelet Volume 12.1 H Immature 0.800 H Granulocytes % Neutrophils % 82.8 H Lymphocytes % 6.3 L Monocytes % 8.7 Eosinophils % 1.3 Basophils % 0.1 Nucleated Red Blood 0.0 Cells % Immature 0.070 H Granulocytes # Neutrophils # 6.9 Lymphocytes # 0.5 L Monocytes # 0.7 Eosinophils # 0.1 Basophils # 0.0 Nucleated Red Blood 0.0 Cells # Carcinoembryonic 6.6 H Antigen Sodium Level 142 Potassium Level 3.9 Chloride Level 104 Carbon Dioxide Level 26 Anion Gap 12 Blood Urea Nitrogen 54 H Creatinine 5.29 H Est Glomerular Filtrat Rate mL/min Glucose Level 111 Calcium Level 8.3 L Phosphorus Level 4.9 Magnesium Level 2.7 H Bedside Glucose 105 147 Test 11/29/18 12:11 Bedside Glucose 150 Medications Medications Current Medications Hydralazine HCl (Apresoline) 10 mg Q6H PRN IV SBP >160; Start 11/25/18 at 14:00 Ondansetron HCl (Zofran Inj) 4 mg Q4H PRN IV NAUSEA AND/OR VOMITING Last administered on 11/29/18at 01:10; Admin Dose 4 MG; Start 11/25/18 at 14:00 Insulin Glargine (Lantus) 10 units DAILY@0800 SC Last administered on 11/29/18at 12:14; Admin Dose 10 UNITS; Start 11/26/18 at 08:00 Insulin Aspart (Novolog Insulin Pen) NOVOLOG *MILD* ALGORI... Q4 SC Last administered on 11/29/18at 12:15; Admin Dose 1 UNIT; Start 11/25/18 at 17:00 Albuterol/ Ipratropium (Duoneb) 3 ml Q6H RESP THERAPY PRN HHN SHORTNESS OF BREATH Last administered on 11/26/18at 20:17; Admin Dose 3 ML; Start 11/25/18 at 14:00 Acetaminophen (Tylenol Supp) 650 mg Q4H PRN [place] MILD PAIN(1-3) OR TEMP>38C; Start 11/25/18 at 14:00 Miscellaneous Information 1 ea NOTE XX ; Start 11/25/18 at 14:30 Glucose (Glutose) 15 gm Q15M PRN PO DECREASED GLUCOSE; Start 11/25/18 at 14:30 Glucose (Glutose) 22.5 gm Q15M PRN PO DECREASED GLUCOSE; Start 11/25/18 at 14:30 Dextrose (D50w Syringe) 25 ml Q15M PRN IV DECREASED GLUCOSE; Start 11/25/18 at 14:30 Dextrose (D50w Syringe) 50 ml Q15M PRN IV DECREASED GLUCOSE; Start 11/25/18 at 14:30 Glucagon (Glucagen) 1 mg Q15M PRN IM DECREASED GLUCOSE; Start 11/25/18 at 14:30 Glucose (Glutose) 15 gm Q15M PRN BUCCAL DECREASED GLUCOSE; Start 11/25/18 at 14:30 Famotidine (Pepcid Iv) 20 mg DAILY IV Last administered on 11/29/18at 09:13; Admin Dose 20 MG; Start 11/25/18 at 15:00 Budesonide (Pulmicort (Neb)) 0.5 mg BID RESP THERAPY HHN Last administered on 11/29/18at 07:54; Admin Dose 0.5 MG; Start 11/26/18 at 09:00 Phenylephrine HCl 250 ml @ 75 mls/hr TITRATE IV ; Start 11/26/18 at 06:30 IV Flush (NS 10 ml) 10 ml PRN PRN IV IV PROTOCOL; Start 11/26/18 at 14:00 Metoprolol Tartrate (Lopressor) 5 mg Q4H PRN IV HR>110 Hold SBP<100; Start 11/26/18 at 18:00 Levothyroxine Sodium (Synthroid) 125 mcg DAILY@06 PO Last administered on 11/28/18at 05:21; Admin Dose 125 MCG; Start 11/28/18 at 06:00 Ferric Sodium Gluconate Complex 125 mg/Sodium Chloride 110 ml @ 110 mls/hr DAILY@1300 IVPB Last administered on 11/29/18at 12:38; Admin Dose 110 MLS/HR; Start 11/28/18 at 13:00; Stop 12/02/18 at 13:59 Albumin Human 100 ml @ 100 mls/hr DURING DIALYSIS PRN IV HYPOTENTION DURING HD; Start 11/27/18 at 20:30 Acetaminophen (Tylenol Liquid) 650 mg Q4H PRN PO MILD PAIN(1-3)OR ELEVATED TEMP Last administered on 11/28/18at 18:59; Admin Dose 650 MG; Start 11/28/18 at 16:00 Acetaminophen 100 ml @ 400 mls/hr Q6H PRN IVPB PAIN; Start 11/29/18 at 08:00; Stop 11/30/18 at 07:59 Haloperidol (Haldol) 2 mg Q4 PRN IV AGITATION; Start 11/29/18 at 12:00 CARMELO MAE Nov 29, 2018 13:17
--- NOTE | 2018-11-29 13:18 | CONS ---
Assessment/Plan Assessment/Plan Hospital Course 78 yo F with hx of ESRD on HD and other comorbidities who presents with ams in contest of respiratory sx. She was noted to be acutely encephalopathic following HD on 11/28, for which neurology is consulted. The clinical picture suggests an acute on chronic encephalopathy A focal [employer] process is, though, not entirely excluded. HCT on 11/25 was without obvious acute intracranial pathology. P: MRI brain without contrast for further characterization EEG to evaluate for epileptiform activity Add ammonia, TSH, B12 levels to exclude reversible causes of encephalopathy [place] as necessary Consider seroquel hs and prn Limit other sedating medications where possible Medical management per primary Will follow clinically Consultation Date/Type/Reason Admit Date/Time Nov 25, 2018 at 13:18 Type of Consult Neurology Reason for Consultation ams Requesting Provider: GENNY SULLIVAN Date/Time of Note DATE: 11/29/18 TIME: 13:18 Hx of Present Illness The pt is currently unable to contribute a hx. It is elsewhere noted: CHIEF COMPLAINT: Acute encephalopathy and hypertension. HISTORY OF PRESENT ILLNESS: The patient is a 78-year-old female with hyperten ashok, congestive heart failure, asthma, chronic kidney disease stage III, diabetes, history of pulmonary embolism, colon cancer, status post surgery, atrial fibrillation. The patient was recently admitted at [facility] in [place] for acute respiratory failure secondary to pulmonary edema due to acute diastolic heart failure. The patient was treated with IV Lasix. The patient also has history of asthma. The patient was stabilized and was transferred to [facility] on 11/18/2018. The patient since admission had been slowly declining and for the last 2 to 3 days, the patient's renal functions have been deteriorating. The patient continues to remain short of breath e specially with minimal activity. The patient this morning was noted to be altered and was nonverbal, initially was not even waking up but subsequently she started waking up and was able to move all extremities. The patient did not have any fever or chills. No history of vomiting. The patient was recently noted to be constipated and had large bowel movement yesterday. The patient did not have any acute skin rash or joint swelling. The patient was seen by Dr. Grey due to worsening renal failure. The patient also developed anemia of chronic kidney disease and hemoglobin this morning was only 7.1. Chemistry revealed a BUN of 106, creatinine of 6.9. The patient was altered and was seen by Dr. Cardoso from neurology standpoint. This morning, the patient was subsequently transferred to [facility] ICU because of multiple readings of hypertension. The patient's last blood pressure at [place] was in 80s and the patient was lethargic. unable to obtain d/t ams Exam/Review of Systems Exam Vitals Vital Signs Date Temp Pulse Resp B/P (MAP) Pulse Ox O2 O2 Flow FiO2 Time Delivery Rate 11/29/18 98.1 82 19 157/77 98 12:08 (103) 11/29/18 Nasal 2.0 08:30 Cannula 11/26/18 27 04:38 Intake and Output 11/28/18 11/28/18 11/29/18 1515:00 23:00 07:00 IntakeIntake Total 40 ml 20 ml 100 ml OutputOutput Total 50 ml 1780 ml 70 ml BalanceBalance -10 ml -1760 ml 30 ml Exam PE: Gen Appearance: Agitated; on 2-pt restraints HEENT: Normocephalic Cardiovascular: Regular rate Abdomen: Soft Extremities: Dry NE: The patient was awake and alert, though disoriented. Speech was normal. Fund of knowledge was unable to be assessed. Cranial nerve examination was limited by mental status. Pupils were equal and reactive to light. There was no afferent pupillary defect. Funduscopic examination was limited. Face was grossly symmetric, w/ present corneal and c ough reflexes. Tone was normal. Muscle bulk was normal. I did not see fasciculations. The patient was spontaneously moving all extremities, symmetrically. Coordination and gait testing was limited by mental status. Arm and leg reflexes were within normal limits and symmetric. Lai's sign was absent. Plantar responses were flexor. Results Result Diagram: 11/29/18 0400 11/29/18 0500 Results 24hrs Laboratory Tests Test 11/28/18 17:15 11/28/18 20:33 11/29/18 01:04 11/29/18 01:48 Bedside Glucose 123 119 118 Sodium Level 138 Potassium Level 3.9 Chloride Level 100 Carbon Dioxide Level 27 Anion Gap 11 Blood Urea Nitrogen 53 H Creatinine 4.98 #H Est Glomerular Filtrat Rate mL/min Glucose Level 129 # Calcium Level 8.0 L Phosphorus Level 4.7 Magnesium Level 2.7 H Test 11/29/18 04:00 11/29/18 05:00 11/29/18 05:24 11/29/18 07:58 White Blood Count 8.3 Red Blood Count 2.72 L Hemoglobin 8.1 L Hematocrit 25.8 L Mean Corpuscular 94.9 Volume Mean Corpuscular 29.8 Hemoglobin Mean Corpuscular 31.4 L Hemoglobin Concent Red Cell 15.4 H Distribution Width Platelet Count 126 L Mean Platelet Volume 12.1 H Immature 0.800 H Granulocytes % Neutrophils % 82.8 H Lymphocytes % 6.3 L Monocytes % 8.7 Eosinophils % 1.3 Basophils % 0.1 Nucleated Red Blood 0.0 Cells % Immature 0.070 H Granulocytes # Neutrophils # 6.9 Lymphocytes # 0.5 L Monocytes # 0.7 Eosinophils # 0.1 Basophils # 0.0 Nucleated Red Blood 0.0 Cells # Carcinoembryonic 6.6 H Antigen Sodium Level 142 Potassium Level 3.9 Chloride Level 104 Carbon Dioxide Level 26 Anion Gap 12 Blood Urea Nitrogen 54 H Creatinine 5.29 H Est Glomerular Filtrat Rate mL/min Glucose Level 111 Calcium Level 8.3 L Phosphorus Level 4.9 Magnesium Level 2.7 H Bedside Glucose 105 147 Test 11/29/18 12:11 Bedside Glucose 150 Medications Medication Current Medications Hydralazine HCl (Apresoline) 10 mg Q6H PRN IV SBP >160; Start 11/25/18 at 14:00 Ondansetron HCl (Zofran Inj) 4 mg Q4H PRN IV NAUSEA AND/OR VOMITING Last administered on 11/29/18at 01:10; Admin Dose 4 MG; Start 11/25/18 at 14:00 Insulin Glargine (Lantus) 10 units DAILY@0800 SC Last administered on 11/29/18at 12:14; Admin Dose 10 UNITS; Start 11/26/18 at 08:00 Insulin Aspart (Novolog Insulin Pen) NOVOLOG *MILD* ALGORI... Q4 SC Last administered on 11/29/18at 12:15; Admin Dose 1 UNIT; Start 11/25/18 at 17:00 Albuterol/ Ipratropium (Duoneb) 3 ml Q6H RESP THERAPY PRN HHN SHORTNESS OF BREATH Last administered on 11/26/18at 20:17; Admin Dose 3 ML; Start 11/25/18 at 14:00 Acetaminophen (Tylenol Supp) 650 mg Q4H PRN [place] MILD PAIN(1-3) OR TEMP>38C; Start 11/25/18 at 14:00 Miscellaneous Information 1 ea NOTE XX ; Start 11/25/18 at 14:30 Glucose (Glutose) 15 gm Q15M PRN PO DECREASED GLUCOSE; Start 11/25/18 at 14:30 Glucose (Glutose) 22.5 gm Q15M PRN PO DECREASED GLUCOSE; Start 11/25/18 at 14:30 Dextrose (D50w Syringe) 25 ml Q15M PRN IV DECREASED GLUCOSE; Start 11/25/18 at 14:30 Dextrose (D50w Syringe) 50 ml Q15M PRN IV DECREASED GLUCOSE; Start 11/25/18 at 14:30 Glucagon (Glucagen) 1 mg Q15M PRN IM DECREASED GLUCOSE; Start 11/25/18 at 14:30 Glucose (Glutose) 15 gm Q15M PRN BUCCAL DECREASED GLUCOSE; Start 11/25/18 at 14:30 Famotidine (Pepcid Iv) 20 mg DAILY IV Last administered on 11/29/18at 09:13; Admin Dose 20 MG; Start 11/25/18 at 15:00 Budesonide (Pulmicort (Neb)) 0.5 mg BID RESP THERAPY HHN Last administered on 11/29/18at 07:54; Admin Dose 0.5 MG; Start 11/26/18 at 09:00 Phenylephrine HCl 250 ml @ 75 mls/hr TITRATE IV ; Start 11/26/18 at 06:30 IV Flush (NS 10 ml) 10 ml PRN PRN IV IV PROTOCOL; Start 11/26/18 at 14:00 Metoprolol Tartrate (Lopressor) 5 mg Q4H PRN IV HR>110 Hold SBP<100; Start 11/26/18 at 18:00 Levothyroxine Sodium (Synthroid) 125 mcg DAILY@06 PO Last administered on 11/28/18at 05:21; Admin Dose 125 MCG; Start 11/28/18 at 06:00 Ferric Sodium Gluconate Complex 125 mg/Sodium Chloride 110 ml @ 110 mls/hr DAILY@1300 IVPB Last administered on 11/29/18at 12:38; Admin Dose 110 MLS/HR; Start 11/28/18 at 13:00; Stop 12/02/18 at 13:59 Albumin Human 100 ml @ 100 mls/hr DURING DIALYSIS PRN IV HYPOTENTION DURING HD; Start 11/27/18 at 20:30 Acetaminophen (Tylenol Liquid) 650 mg Q4H PRN PO MILD PAIN(1-3)OR ELEVATED TEMP Last administered on 11/28/18at 18:59; Admin Dose 650 MG; Start 11/28/18 at 16:00 Acetaminophen 100 ml @ 400 mls/hr Q6H PRN IVPB PAIN; Start 11/29/18 at 08:00; Stop 11/30/18 at 07:59 Haloperidol (Haldol) 2 mg Q4 PRN IV AGITATION; Start 11/29/18 at 12:00 Past Medical History reviewed Home Meds Reported Medications Alprazolam* (Alprazolam*) 0.25 Mg Tablet, 0.25 MG PO NEEDED PRN for ANXIETY, TAB 11/26/18 Magnesium Oxide* (Mag-Oxide*) 400 Mg Tablet, 400 MG PO BID, TAB 11/26/18 Losartan Potassium* (Losartan Potassium*) 50 Mg Tablet, 50 MG PO BID PRN for NEEDED, TAB 11/26/18 Atorvastatin Calcium* (Atorvastatin Calcium*) 20 Mg Tablet, 20 MG PO QHS, #30 TAB 11/26/18 Potassium Chloride* (Potassium Chloride*) 8 Meq Capsule.er, 8 MEQ PO DAILY, CAP 11/26/18 Dronedarone Hydrochloride* (Multaq*) 400 Mg Tablet, 400 MG PO BID, TAB 11/26/18 Insulin Aspart (Novolog) 100 Unit/1 Ml Cartridge, 8 UNIT SQ AC BREAKFAST DINNER 11/26/18 Clopidogrel Bisulfate* (Clopidogrel Bisulfate*) 75 Mg Tablet, 75 MG PO DAILY, #30 TAB 11/26/18 Carvedilol* (Carvedilol*) 3.125 Mg Tablet, 3.125 MG PO BID, #60 TAB 11/26/18 Gabapentin* (Gabapentin*) 300 Mg Capsule, 300 MG PO DAILY, #60 CAP NEEDED 11/26/18 Aspirin* (Aspirin* EC) 81 Mg Tablet.dr, 81 MG PO DAILY, TAB 11/26/18 Amlodipine Besylate* (Amlodipine Besylate*) 10 Mg Tablet, 10 MG PO DAILY, #30 TAB TAKE NEEDED 11/26/18 Famotidine* (Famotidine*) 20 Mg Tablet, 20 MG PO BID, #30 TAB 11/26/18 Furosemide* (Furosemide*) 40 Mg Tablet, 40 MG PO BID, TAB 11/26/18 Levothyroxine Sodium* (Levothyroxine Sodium*) 125 Mcg Tablet, 125 MCG PO BEFORE BREAKFAST, #30 TAB 11/26/18 Bisacodyl (Ducodyl) 5 Mg Tablet.dr, 5 MG PO NEEDED 11/26/18 Ergocalciferol (Vitamin D2) (VITAMIN D2) 50,000 Unit Capsule, 69334 UNIT PO Q SAT, CAP 11/26/18 Lisinopril* (Lisinopril*) 5 Mg Tablet, 5 MG PO DAILY, #30 TAB TAKE NEEDED 11/26/18 Clonidine Hcl* (Clonidine Hcl*) 0.2 Mg Tablet, 0.2 MG PO BID PRN for HTN, TAB 11/26/18 Clonidine Patch (CLONIDINE PATCH) 0.2 Mg/24 Hr Patch, 1 PATCH.WK TD Q7D, #4 PATCH.WK 11/26/18 Hydralazine Hcl* (Apresoline*) 50 Mg Tab, 50 MG PO BID PRN for HTN, #60 TAB TAKE NEEDED 11/26/18 Insulin Glargine,Hum.rec.anlog (Basaglar Toritoikpen U-100) 100 Unit/1 Ml Insuln.pen, 40 UNIT SC QHS, EA 11/26/18 Docusate Sodium* (Colace*) 250 Mg Capsule, 250 MG PO BID, #60 CAP 11/26/18 Ferrous Sulfate* (Ferrous Sulfate*) 325 Mg Tabec, 325 MG PO BID, TAB 11/26/18 Medications Current Medications Hydralazine HCl (Apresoline) 10 mg Q6H PRN IV SBP >160; Start 11/25/18 at 14:00 Ondansetron HCl (Zofran Inj) 4 mg Q4H PRN IV NAUSEA AND/OR VOMITING Last administered on 11/29/18at 01:10; Admin Dose 4 MG; Start 11/25/18 at 14:00 Insulin Glargine (Lantus) 10 units DAILY@0800 SC Last administered on 11/29/18at 12:14; Admin Dose 10 UNITS; Start 11/26/18 at 08:00 Insulin Aspart (Novolog Insulin Pen) NOVOLOG *MILD* ALGORI... Q4 SC Last administered on 11/29/18at 12:15; Admin Dose 1 UNIT; Start 11/25/18 at 17:00 Albuterol/ Ipratropium (Duoneb) 3 ml Q6H RESP THERAPY PRN HHN SHORTNESS OF BREATH Last administered on 11/26/18at 20:17; Admin Dose 3 ML; Start 11/25/18 at 14:00 Acetaminophen (Tylenol Supp) 650 mg Q4H PRN [place] MILD PAIN(1-3) OR TEMP>38C; Start 11/25/18 at 14:00 Miscellaneous Information 1 ea NOTE XX ; Start 11/25/18 at 14:30 Glucose (Glutose) 15 gm Q15M PRN PO DECREASED GLUCOSE; Start 11/25/18 at 14:30 Glucose (Glutose) 22.5 gm Q15M PRN PO DECREASED GLUCOSE; Start 11/25/18 at 14:30 Dextrose (D50w Syringe) 25 ml Q15M PRN IV DECREASED GLUCOSE; Start 11/25/18 at 14:30 Dextrose (D50w Syringe) 50 ml Q15M PRN IV DECREASED GLUCOSE; Start 11/25/18 at 14:30 Glucagon (Glucagen) 1 mg Q15M PRN IM DECREASED GLUCOSE; Start 11/25/18 at 14:30 Glucose (Glutose) 15 gm Q15M PRN BUCCAL DECREASED GLUCOSE; Start 11/25/18 at 14:30 Famotidine (Pepcid Iv) 20 mg DAILY IV Last administered on 11/29/18at 09:13; Admin Dose 20 MG; Start 11/25/18 at 15:00 Budesonide (Pulmicort (Neb)) 0.5 mg BID RESP THERAPY HHN Last administered on 11/29/18at 07:54; Admin Dose 0.5 MG; Start 11/26/18 at 09:00 Phenylephrine HCl 250 ml @ 75 mls/hr TITRATE IV ; Start 11/26/18 at 06:30 IV Flush (NS 10 ml) 10 ml PRN PRN IV IV PROTOCOL; Start 11/26/18 at 14:00 Metoprolol Tartrate (Lopressor) 5 mg Q4H PRN IV HR>110 Hold SBP<100; Start 11/26/18 at 18:00 Levothyroxine Sodium (Synthroid) 125 mcg DAILY@06 PO Last administered on 11/28/18at 05:21; Admin Dose 125 MCG; Start 11/28/18 at 06:00 Ferric Sodium Gluconate Complex 125 mg/Sodium Chloride 110 ml @ 110 mls/hr DAILY@1300 IVPB Last administered on 11/29/18at 12:38; Admin Dose 110 MLS/HR; Start 11/28/18 at 13:00; Stop 12/02/18 at 13:59 Albumin Human 100 ml @ 100 mls/hr DURING DIALYSIS PRN IV HYPOTENTION DURING HD; Start 11/27/18 at 20:30 Acetaminophen (Tylenol Liquid) 650 mg Q4H PRN PO MILD PAIN(1-3)OR ELEVATED TEMP Last administered on 11/28/18at 18:59; Admin Dose 650 MG; Start 11/28/18 at 16:00 Acetaminophen 100 ml @ 400 mls/hr Q6H PRN IVPB PAIN; Start 11/29/18 at 08:00; Stop 11/30/18 at 07:59 Haloperidol (Haldol) 2 mg Q4 PRN IV AGITATION; Start 11/29/18 at 12:00 Allergies: Coded Allergies: No Known Allergy (Unverified , 11/26/18) Past Surgical History reviewed Social History reviewed Smoking Status: Never smoker NICHO HENDRIX NP Nov 29, 2018 13:18
--- NOTE | 2018-11-29 16:18 | PN ---
Date/Time of Note Date/Time of Note DATE: 11/29/18 TIME: 16:15 Assessment/Plan VTE Prophylaxis Risk score (from Ns)>0 risk: 10 [place] applied [place] [facility] [place] Yes Pharmacological prophylaxis: NA/contraindicated Pharm contraindication: thrombocytopenia Lines/Catheters IV Catheter Type (from [facility]): Trialysis Catheter Urinary Cath still in place: Yes Reason Cath still needed: urinary retention Assessment/Plan Hospital Course Patient remains hemodynamically stable had dialysis yesterday and today. Patient gets agitated overnight, remains confused. Dr. Zavala is asked to see patient in neurology consultation. Assessment/Plan -Acute kidney injury on chronic kidney disease. Patient was initiated on hemodialysis on 11/27/2018. Continue hemodialysis per nephrology Dr. Sadler is following in nephrology consultation. -Acute metabolic encephalopathy. CT revealed white matter disease compatible with chronic small vessel ischemia. -Atrial fibrillation. Dr. Sy is following in cardiology consultation. -CHF -Hypertension -Anemia multifactorial chronic disease and possible GI bleed. Stool for OB is positive. Dr. Schaffer is asked to see patient in gastroenterology consultation. -Diabetes. Continue Lantus and sliding scale insulin. -Hypothyroidism. Continue Synthroid. -Asthma. Continue Pulmicort. -Thrombocytopenia. Critical care time spent is 30 minutes. Further recommendations based on clinical course. Plan of care discussed with Dr. Lind. Result Diagram: 11/29/18 0400 11/29/18 0500 Results 24hrs Laboratory Tests Test 11/28/18 17:15 11/28/18 20:33 11/29/18 01:04 11/29/18 01:48 Bedside Glucose 123 119 118 Sodium Level 138 Potassium Level 3.9 Chloride Level 100 Carbon Dioxide Level 27 Anion Gap 11 Blood Urea Nitrogen 53 H Creatinine 4.98 #H Est Glomerular Filtrat Rate mL/min Glucose Level 129 # Calcium Level 8.0 L Phosphorus Level 4.7 Magnesium Level 2.7 H Test 11/29/18 04:00 11/29/18 05:00 11/29/18 05:24 11/29/18 07:58 White Blood Count 8.3 Red Blood Count 2.72 L Hemoglobin 8.1 L Hematocrit 25.8 L Mean Corpuscular 94.9 Volume Mean Corpuscular 29.8 Hemoglobin Mean Corpuscular 31.4 L Hemoglobin Concent Red Cell 15.4 H Distribution Width Platelet Count 126 L Mean Platelet Volume 12.1 H Immature 0.800 H Granulocytes % Neutrophils % 82.8 H Lymphocytes % 6.3 L Monocytes % 8.7 Eosinophils % 1.3 Basophils % 0.1 Nucleated Red Blood 0.0 Cells % Immature 0.070 H Granulocytes # Neutrophils # 6.9 Lymphocytes # 0.5 L Monocytes # 0.7 Eosinophils # 0.1 Basophils # 0.0 Nucleated Red Blood 0.0 Cells # Carcinoembryonic 6.6 H Antigen Sodium Level 142 Potassium Level 3.9 Chloride Level 104 Carbon Dioxide Level 26 Anion Gap 12 Blood Urea Nitrogen 54 H Creatinine 5.29 H Est Glomerular Filtrat Rate mL/min Glucose Level 111 Calcium Level 8.3 L Phosphorus Level 4.9 Magnesium Level 2.7 H Bedside Glucose 105 147 Test 11/29/18 12:11 11/29/18 14:10 Bedside Glucose 150 Ammonia 10 Vitamin B12 Level 984 H Thyroid Stimulating 2.880 Hormone (TSH) Exam/Review of Systems Exam Vitals Vital Signs Date Temp Pulse Resp B/P (MAP) Pulse Ox O2 O2 Flow FiO2 Time Delivery Rate 11/29/18 101 16:10 11/29/18 98.0 19 174/81 100 16:00 (112) 11/29/18 Nasal 2.0 08:30 Cannula 11/26/18 27 04:38 Intake and Output 11/28/18 11/28/18 11/29/18 1515:00 23:00 07:00 IntakeIntake Total 40 ml 20 ml 100 ml OutputOutput Total 50 ml 1780 ml 70 ml BalanceBalance -10 ml -1760 ml 30 ml Exam Constitutional: alert, confused Respiratory: diminished breath sounds Cardiovascular: irregular rhythm Gastrointestinal: soft, non-tender Musculoskeletal: nl extremities to inspection Extremities: normal pulses Right femoral Eliseo catheter Results Results 24hrs Laboratory Tests Test 11/28/18 17:15 11/28/18 20:33 11/29/18 01:04 11/29/18 01:48 Bedside Glucose 123 119 118 Sodium Level 138 Potassium Level 3.9 Chloride Level 100 Carbon Dioxide Level 27 Anion Gap 11 Blood Urea Nitrogen 53 H Creatinine 4.98 #H Est Glomerular Filtrat Rate mL/min Glucose Level 129 # Calcium Level 8.0 L Phosphorus Level 4.7 Magnesium Level 2.7 H Test 11/29/18 04:00 11/29/18 05:00 11/29/18 05:24 11/29/18 07:58 White Blood Count 8.3 Red Blood Count 2.72 L Hemoglobin 8.1 L Hematocrit 25.8 L Mean Corpuscular 94.9 Volume Mean Corpuscular 29.8 Hemoglobin Mean Corpuscular 31.4 L Hemoglobin Concent Red Cell 15.4 H Distribution Width Platelet Count 126 L Mean Platelet Volume 12.1 H Immature 0.800 H Granulocytes % Neutrophils % 82.8 H Lymphocytes % 6.3 L Monocytes % 8.7 Eosinophils % 1.3 Basophils % 0.1 Nucleated Red Blood 0.0 Cells % Immature 0.070 H Granulocytes # Neutrophils # 6.9 Lymphocytes # 0.5 L Monocytes # 0.7 Eosinophils # 0.1 Basophils # 0.0 Nucleated Red Blood 0.0 Cells # Carcinoembryonic 6.6 H Antigen Sodium Level 142 Potassium Level 3.9 Chloride Level 104 Carbon Dioxide Level 26 Anion Gap 12 Blood Urea Nitrogen 54 H Creatinine 5.29 H Est Glomerular Filtrat Rate mL/min Glucose Level 111 Calcium Level 8.3 L Phosphorus Level 4.9 Magnesium Level 2.7 H Bedside Glucose 105 147 Test 11/29/18 12:11 11/29/18 14:10 Bedside Glucose 150 Ammonia 10 Vitamin B12 Level 984 H Thyroid Stimulating 2.880 Hormone (TSH) Medications Medication Current Medications Hydralazine HCl (Apresoline) 10 mg Q6H PRN IV SBP >160; Start 11/25/18 at 14:00 Ondansetron HCl (Zofran Inj) 4 mg Q4H PRN IV NAUSEA AND/OR VOMITING Last administered on 11/29/18at 01:10; Admin Dose 4 MG; Start 11/25/18 at 14:00 Insulin Glargine (Lantus) 10 units DAILY@0800 SC Last administered on 11/29/18at 12:14; Admin Dose 10 UNITS; Start 11/26/18 at 08:00 Insulin Aspart (Novolog Insulin Pen) NOVOLOG *MILD* ALGORI... Q4 SC Last administered on 11/29/18at 12:15; Admin Dose 1 UNIT; Start 11/25/18 at 17:00 Albuterol/ Ipratropium (Duoneb) 3 ml Q6H RESP THERAPY PRN HHN SHORTNESS OF BREATH Last administered on 11/26/18at 20:17; Admin Dose 3 ML; Start 11/25/18 at 14:00 Acetaminophen (Tylenol Supp) 650 mg Q4H PRN [place] MILD PAIN(1-3) OR TEMP>38C; Start 11/25/18 at 14:00 Miscellaneous Information 1 ea NOTE XX ; Start 11/25/18 at 14:30 Glucose (Glutose) 15 gm Q15M PRN PO DECREASED GLUCOSE; Start 11/25/18 at 14:30 Glucose (Glutose) 22.5 gm Q15M PRN PO DECREASED GLUCOSE; Start 11/25/18 at 14:30 Dextrose (D50w Syringe) 25 ml Q15M PRN IV DECREASED GLUCOSE; Start 11/25/18 at 14:30 Dextrose (D50w Syringe) 50 ml Q15M PRN IV DECREASED GLUCOSE; Start 11/25/18 at 14:30 Glucagon (Glucagen) 1 mg Q15M PRN IM DECREASED GLUCOSE; Start 11/25/18 at 14:30 Glucose (Glutose) 15 gm Q15M PRN BUCCAL DECREASED GLUCOSE; Start 11/25/18 at 14:30 Famotidine (Pepcid Iv) 20 mg DAILY IV Last administered on 11/29/18at 09:13; Admin Dose 20 MG; Start 11/25/18 at 15:00 Budesonide (Pulmicort (Neb)) 0.5 mg BID RESP THERAPY HHN Last administered on 11/29/18at 07:54; Admin Dose 0.5 MG; Start 11/26/18 at 09:00 Phenylephrine HCl 250 ml @ 75 mls/hr TITRATE IV ; Start 11/26/18 at 06:30 IV Flush (NS 10 ml) 10 ml PRN PRN IV IV PROTOCOL; Start 11/26/18 at 14:00 Metoprolol Tartrate (Lopressor) 5 mg Q4H PRN IV HR>110 Hold SBP<100; Start 11/26/18 at 18:00 Levothyroxine Sodium (Synthroid) 125 mcg DAILY@06 PO Last administered on 11/28/18at 05:21; Admin Dose 125 MCG; Start 11/28/18 at 06:00 Ferric Sodium Gluconate Complex 125 mg/Sodium Chloride 110 ml @ 110 mls/hr DAILY@1300 IVPB Last administered on 11/29/18at 12:38; Admin Dose 110 MLS/HR; Start 11/28/18 at 13:00; Stop 12/02/18 at 13:59 Albumin Human 100 ml @ 100 mls/hr DURING DIALYSIS PRN IV HYPOTENTION DURING HD; Start 11/27/18 at 20:30 Acetaminophen (Tylenol Liquid) 650 mg Q4H PRN PO MILD PAIN(1-3)OR ELEVATED TEMP Last administered on 11/28/18at 18:59; Admin Dose 650 MG; Start 11/28/18 at 16:00 Acetaminophen 100 ml @ 400 mls/hr Q6H PRN IVPB PAIN; Start 11/29/18 at 08:00; Stop 11/30/18 at 07:59 Haloperidol (Haldol) 2 mg Q4 PRN IV AGITATION; Start 11/29/18 at 12:00 Metoprolol Tartrate (Lopressor) 25 mg BID PO ; Start 11/29/18 at 21:00 GENNY SULLIVAN Nov 29, 2018 16:18
[2018-11-29] MEDS: hydrALAzine 20 MG INJ IV PRN (17:00)
[2018-11-29] MEDS: METOPROLOL 5 MG INJ IV PRN (17:20)
--- NOTE | 2018-11-29 18:36 | CONS ---
Assessment/Plan Assessment/Plan Assessment/Plan (Daily) IMPRESSION: 1. Anemia due to the chronic gastrointestinal blood loss and also chronic disease. 2. Diabetes mellitus. 3. Thrombocytopenia. 4. Bronchial asthma. 5. Atrial fibrillation. 6. Renal failure. Plan Waiting for the report from the other hospital Patient's CEA level was mildly elevated at 6.4 patient might need repeat colonoscopy Consultation Date/Type/Reason Admit Date/Time Nov 25, 2018 at 13:18 Initial Consult Date 11/26/18 Requesting Provider: GENNY SULLIVAN Date/Time of Note DATE: 11/29/18 TIME: 18:35 24 HR Interval Summary Constitutional: improved Exam/Review of Systems Exam Vitals Vital Signs Date Temp Pulse Resp B/P (MAP) Pulse Ox O2 O2 Flow FiO2 Time Delivery Rate 11/29/18 20 126/72 100 Nasal 18:00 (90) Cannula 11/29/18 101 16:10 11/29/18 98.0 16:00 11/29/18 2.0 08:30 11/26/18 27 04:38 Intake and Output 11/28/18 11/28/18 11/29/18 1515:00 23:00 07:00 IntakeIntake Total 40 ml 20 ml 100 ml OutputOutput Total 50 ml 1780 ml 70 ml BalanceBalance -10 ml -1760 ml 30 ml Constitutional: alert, oriented, well developed Psych: no complaints, nl mood/affect Head: normocephalic, atraumatic Eyes: nl conjunctiva, EOMI, nl lids, nl sclera, PERRL ENMT: nl external ears & nose, nl lips & teeth, nl nasal mucosa & septum Neck: supple, non-tender Respiratory: clear to auscultation, normal air movement Cardiovascular: regular rate and rhythm, nl pulses Gastrointestinal: soft, nl liver, spleen, non-tender Musculoskeletal: nl extremities to inspection, nl gait and stance Extremities: normal pulses Neurological: STRIP MACHINE TENDER II-XII intact, nl mental status, nl speech, nl strength Skin: nl turgor; No rash or lesions Lymph: nl lymph nodes Results Result Diagram: 11/29/18 0400 11/29/18 0500 Results 24hrs Laboratory Tests Test 11/28/18 20:33 11/29/18 01:04 11/29/18 01:48 11/29/18 04:00 Bedside Glucose 119 118 Sodium Level 138 Potassium Level 3.9 Chloride Level 100 Carbon Dioxide Level 27 Anion Gap 11 Blood Urea Nitrogen 53 H Creatinine 4.98 #H Est Glomerular Filtrat Rate mL/min Glucose Level 129 # Calcium Level 8.0 L Phosphorus Level 4.7 Magnesium Level 2.7 H White Blood Count 8.3 Red Blood Count 2.72 L Hemoglobin 8.1 L Hematocrit 25.8 L Mean Corpuscular 94.9 Volume Mean Corpuscular 29.8 Hemoglobin Mean Corpuscular 31.4 L Hemoglobin Concent Red Cell 15.4 H Distribution Width Platelet Count 126 L Mean Platelet Volume 12.1 H Immature 0.800 H Granulocytes % Neutrophils % 82.8 H Lymphocytes % 6.3 L Monocytes % 8.7 Eosinophils % 1.3 Basophils % 0.1 Nucleated Red Blood 0.0 Cells % Immature 0.070 H Granulocytes # Neutrophils # 6.9 Lymphocytes # 0.5 L Monocytes # 0.7 Eosinophils # 0.1 Basophils # 0.0 Nucleated Red Blood 0.0 Cells # Carcinoembryonic 6.6 H Antigen Test 11/29/18 05:00 11/29/18 05:24 11/29/18 07:58 11/29/18 12:11 Sodium Level 142 Potassium Level 3.9 Chloride Level 104 Carbon Dioxide Level 26 Anion Gap 12 Blood Urea Nitrogen 54 H Creatinine 5.29 H Est Glomerular Filtrat Rate mL/min Glucose Level 111 Calcium Level 8.3 L Phosphorus Level 4.9 Magnesium Level 2.7 H Bedside Glucose 105 147 150 Test 11/29/18 14:10 11/29/18 17:30 Ammonia 10 Vitamin B12 Level 984 H Thyroid Stimulating 2.880 Hormone (TSH) Bedside Glucose 138 Medications Medication Current Medications Hydralazine HCl (Apresoline) 10 mg Q6H PRN IV SBP >160 Last administered on 11/29/18at 17:00; Admin Dose 10 MG; Start 11/25/18 at 14:00 Ondansetron HCl (Zofran Inj) 4 mg Q4H PRN IV NAUSEA AND/OR VOMITING Last administered on 11/29/18at 01:10; Admin Dose 4 MG; Start 11/25/18 at 14:00 Insulin Glargine (Lantus) 10 units DAILY@0800 SC Last administered on 11/29/18at 12:14; Admin Dose 10 UNITS; Start 11/26/18 at 08:00 Insulin Aspart (Novolog Insulin Pen) NOVOLOG *MILD* ALGORI... Q4 SC Last administered on 11/29/18at 12:15; Admin Dose 1 UNIT; Start 11/25/18 at 17:00 Albuterol/ Ipratropium (Duoneb) 3 ml Q6H RESP THERAPY PRN HHN SHORTNESS OF BREATH Last administered on 11/26/18at 20:17; Admin Dose 3 ML; Start 11/25/18 at 14:00 Acetaminophen (Tylenol Supp) 650 mg Q4H PRN [place] MILD PAIN(1-3) OR TEMP>38C; Start 11/25/18 at 14:00 Miscellaneous Information 1 ea NOTE XX ; Start 11/25/18 at 14:30 Glucose (Glutose) 15 gm Q15M PRN PO DECREASED GLUCOSE; Start 11/25/18 at 14:30 Glucose (Glutose) 22.5 gm Q15M PRN PO DECREASED GLUCOSE; Start 11/25/18 at 14:30 Dextrose (D50w Syringe) 25 ml Q15M PRN IV DECREASED GLUCOSE; Start 11/25/18 at 14:30 Dextrose (D50w Syringe) 50 ml Q15M PRN IV DECREASED GLUCOSE; Start 11/25/18 at 14:30 Glucagon (Glucagen) 1 mg Q15M PRN IM DECREASED GLUCOSE; Start 11/25/18 at 14:30 Glucose (Glutose) 15 gm Q15M PRN BUCCAL DECREASED GLUCOSE; Start 11/25/18 at 14:30 Budesonide (Pulmicort (Neb)) 0.5 mg BID RESP THERAPY HHN Last administered on 11/29/18at 07:54; Admin Dose 0.5 MG; Start 11/26/18 at 09:00 Phenylephrine HCl 250 ml @ 75 mls/hr TITRATE IV ; Start 11/26/18 at 06:30 IV Flush (NS 10 ml) 10 ml PRN PRN IV IV PROTOCOL; Start 11/26/18 at 14:00 Metoprolol Tartrate (Lopressor) 5 mg Q4H PRN IV HR>110 Hold SBP<100 Last administered on 11/29/18at 17:20; Admin Dose 5 MG; Start 11/26/18 at 18:00 Levothyroxine Sodium (Synthroid) 125 mcg DAILY@06 PO Last administered on 11/28/18 05:21; Admin Dose 125 MCG; Start 11/28/18 at 06:00 Ferric Sodium Gluconate Complex 125 mg/Sodium Chloride 110 ml @ 110 mls/hr DAILY@1300 IVPB Last administered on 11/29/18at 12:38; Admin Dose 110 MLS/HR; Start 11/28/18 at 13:00; Stop 12/02/18 at 13:59 Albumin Human 100 ml @ 100 mls/hr DURING DIALYSIS PRN IV HYPOTENTION DURING HD; Start 11/27/18 at 20:30 Acetaminophen (Tylenol Liquid) 650 mg Q4H PRN PO MILD PAIN(1-3)OR ELEVATED TEMP Last administered on 11/28/18at 18:59; Admin Dose 650 MG; Start 11/28/18 at 16:00 Acetaminophen 100 ml @ 400 mls/hr Q6H PRN IVPB PAIN; Start 11/29/18 at 08:00; Stop 11/30/18 at 07:59 Haloperidol (Haldol) 2 mg Q4 PRN IV AGITATION Last administered on 11/29/18at 16:30; Admin Dose 2 MG; Start 11/29/18 at 12:00 Metoprolol Tartrate (Lopressor) 25 mg BID PO ; Start 11/29/18 at 21:00 Quetiapine Fumarate (Seroquel) 25 mg QHS PO ; Start 11/29/18 at 21:00 Pantoprazole (Protonix Tab) 40 mg DAILY@06 PO ; Start 11/30/18 at 06:00 KASANDRA FLOYD MD Nov 29, 2018 18:36
--- NOTE | 2018-11-29 19:02 | RADRPT ---
Vent Rate: 85 bpm RR Interval: 0 msec [place] Interval: 0 msec QRS Duration: 90 msec QT Interval: 382 msec QTC Interval: 454 msec P-R-T [place]: 0 - 57 - 0 degrees Atrial fibrillation with premature ventricular or aberrantly conducted complexes Low voltage QRS ST & T wave abnormality, consider inferolateral ischemia or digitalis effect Abnormal ECG Electronically Signed By: Elijah Sy
[2018-11-29] MEDS: QUETIAPINE 25 MG TAB PO SCH (21:50)
[2018-11-29] MEDS: METOPROLOL 25 MG TAB PO SCH (22:23)
[2018-11-30] VITALS (18 sets, daily range): BP systolic 128–186; BP diastolic 55–94; PULSE 71–101; RESP 20
[2018-11-30] MEDS: INSULIN ASPART [NOVOLOG] 3 ML PEN SC SCH ×6 (01:00→21:00)
[2018-11-30] MEDS: HALOPERIDOL 5 MG INJ IV PRN ×3 (03:47→20:26)
[2018-11-30] MEDS: PANTOPRAZOLE (EC) 40 MG TAB PO SCH (07:00)
[2018-11-30] MEDS: LEVOTHYROXINE 125 MCG TAB PO SCH (07:01)
[2018-11-30] MEDS: INSULIN GLARGINE [LANTus] (100 UNITS/ML) SYG SC SCH (08:21)
--- NOTE | 2018-11-30 08:59 | PN ---
DATE: 11/30/2018 SUBJECTIVE: The patient had hemodialysis, tolerated well. The patient was transferred from intensiv e care unit to telemetry. The patient remains confused and agitated. No other events noted. OBJECTIVE: VITAL SIGNS: Blood pressure is 136/68, respirations 20, pulse 86, temperature 97.6. HEENT: Head is normocephalic. NECK: Supple. HEART: Regular rate. LUNGS: Show diminished breath sounds at the base. ABDOMEN: Soft, nontender to palpation without rebound or guarding. EXTREMITIES: Negative for clubbing, cyanosis. Trace edema. DERMATOLOGIC: No rashes. MUSCULOSKELETAL: No joint effusion. NEUROLOGIC: No change in exam. MEDICATIONS: The patient's medications have been reviewed. LABORATORY DATA: Currently pending. ASSESSMENT AND PLAN: 1. Oliguric acute kidney injury on top of chronic kidney disease stage IV with previous baseline cre atinine around 2.0 mg/dL. Etiology of acute kidney injury was secondary to acute tubular necrosis du e to hemodynamic sepsis. The patient has been initiated on dialysis, status post 3 sessions. Plan f or hemodialysis again tomorrow. Monitor for any signs of renal recovery. 2. Anemia, etiology is multifactorial secondary to chronic kidney disease, iron deficiency, question able GI bleed. Patient is currently on IV iron on Epogen. The patient's hemoglobin and hematocrit le vels have been improving. Continue to monitor. Continue PPI. Follow up with GI. 3. Mineral bone disorder. Monitor calcium and phosphorus levels. 4. Encephalopathy. Etiology is toxic metabolic, possibly uremic. Continue to monitor. 5. Coronary artery disease. Continue medical management. 6. Diabetes. Continue current insulin regimen. 7. Hypothyroidism. Continue Synthroid. 8. History of asthma. Continue current treatment plan. 9. History of atrial fibrillation. 10. Thrombocytopenia. Continue to monitor. 11. Hypertension. Blood pressure controlled. Dictated By: SUSY CISNEROS DO NR/NTS Conf#: [id number] DID#: [id number] CC: NEREIDA MCQUEEN MD;*EndCC*
[2018-11-30] MEDS: BUDESONIDE (NEB) 0.5MG/2ML AMP HHN SCH ×2 (10:41→20:07)
--- NOTE | 2018-11-30 11:32 | CONS ---
Assessment/Plan Assessment/Plan Hospital Course 78 yo F with hx of ESRD on HD and other comorbidities who presents with ams in contest of respiratory sx. She was noted to be acutely encephalopathic following HD on 11/28, for which neurology is consulted. 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 HCT on 11/25 was without obvious acute intracranial pathology. EEG was without obvious epileptiform activity.. ammonia wnl, TSH nl, B12 ok P: Await MRI brain [place] as necessary Consider seroquel hs and prn Limit other sedating medications where possible Medical management per primary Will follow clinically Consultation Date/Type/Reason Admit Date/Time Nov 25, 2018 at 13:18 Type of Consult Neurology Reason for Consultation ams Requesting Provider: GENNY SULLIVAN Date/Time of Note DATE: 11/30/18 TIME: 11:31 24 HR Interval Summary Free Text/Dictation Continues acute care. Exam Vital Signs Vitals Vital Signs Date Temp Pulse Resp B/P (MAP) Pulse Ox O2 O2 Flow FiO2 Time Delivery Rate 11/30/18 2.0 10:42 11/30/18 85 22 95 Nasal 10:41 Cannula 11/30/18 179/80 10:12 (113) 11/30/18 97.8 10:00 Intake and Output 11/29/18 11/29/18 11/30/18 1515:00 23:00 07:00 IntakeIntake Total 0 ml OutputOutput Total 1700 ml BalanceBalance -1700 ml Exam PE: Gen Appearance: Agitated; on 2-pt restraints HEENT: Normocephalic Cardiovascular: Regular rate Abdomen: Soft Extremities: Dry NE: The patient was awake and alert, though disoriented. Speech was normal. Fund of knowledge was unable to be assessed. Cranial nerve examination was limited by mental status. Pupils were equal and reactive to light. There was no afferent pupillary defect. Funduscopic examination was limited. Face was grossly symmetric, w/ present corneal and cough reflexes. Tone was normal. Muscle bulk was normal. I did not see fasciculations. The patient was spontaneously moving all extremities, symmetrically. Coordination and gait testing was limited by mental status. Arm and leg reflexes were within normal limits and symmetric. Lai's sign was absent. Plantar responses were flexor. NICHO HENDRIX MACHINE SHOP LEAD MAN Nov 30, 2018 11:32 SHERIF MURDOCK Nov 30, 2018 19:59
--- NOTE | 2018-11-30 11:49 | PN ---
Date/Time of Note Date/Time of Note DATE: 11/30/18 TIME: 11:46 Assessment/Plan VTE Prophylaxis [place] [facility] [place] risk: 10 [place] [facility] [place] Yes SCD contraindicated: other Pharmacological prophylaxis: other Pharm contraindication: other Lines/Catheters IV Catheter Type (from [facility]): Trialysis Catheter Urinary Cath still in place: Yes Reason Cath still needed: urinary retention Assessment/Plan Assessment/Plan 1. Oliguric acute kidney injury on top of chronic kidney disease stage IV with previous baseline creatinine around 2.0 mg/dL. Etiology of acute kidney injury was secondary to acute tubular necrosis due to hemodynamic sepsis. \ - HD per Nephrology -on case 2. Anemia, etiology is multifactorial secondary to chronic kidney disease, iron deficiency, questionable GI bleed. Patient is currently on IV iron on Epogen. - Continue to monitor CBC - Continue PPI. - per GI 3. Mineral bone disorder. Monitor calcium and phosphorus levels. 4. Encephalopathy. Etiology is toxic metabolic, possibly uremic. Continue to monitor. 5. Coronary artery disease. Continue medical management. 6. Diabetes. - Continue current insulin regimen. 7. Hypothyroidism. Continue Synthroid. 8. History of asthma. Continue current treatment plan. 9. History of atrial fibrillation. 10. Thrombocytopenia. Continue to monitor. 11. Hypertension. Blood pressure controlled. Plan of care discussed with Dr. Lind. Result Diagram: 11/30/1871811/30/1819 Results 24hrs Laboratory Tests Test 11/29/18 12:11 11/29/18 14:10 11/29/18 17:30 11/29/18 21:57 Bedside Glucose 150 138 124 Ammonia 10 Vitamin B12 Level 984 H Thyroid Stimulating 2.880 Hormone (TSH) Test 11/30/18 02:32 11/30/18 07:04 11/30/18 07:19 11/30/18 08:14 Bedside Glucose 100 93 86 White Blood Count 7.5 Red Blood Count 3.00 L Hemoglobin 8.9 L Hematocrit 28.9 L Mean Corpuscular 96.3 Volume Mean Corpuscular 29.7 Hemoglobin Mean Corpuscular 30.8 L Hemoglobin Concent Red Cell 15.5 H Distribution Width Platelet Count 125 L Mean Platelet Volume 12.0 H Immature 1.900 H Granulocytes % Neutrophils % 77.7 H Lymphocytes % 6.9 L Monocytes % 11.9 H Eosinophils % 1.3 Basophils % 0.3 Nucleated Red Blood 0.0 Cells % Immature 0.140 H Granulocytes # Neutrophils # 5.9 Lymphocytes # 0.5 L Monocytes # 0.9 Eosinophils # 0.1 Basophils # 0.0 Nucleated Red Blood 0.0 Cells # Sodium Level 142 Potassium Level 4.0 Chloride Level 101 Carbon Dioxide Level 28 Anion Gap 13 Blood Urea Nitrogen 42 #H Creatinine 4.94 H Est Glomerular Filtrat Rate mL/min Glucose Level 80 Calcium Level 8.5 Phosphorus Level 5.4 H Magnesium Level 2.6 H Subjective 24 Hr Interval Summary Free Text/Dictation NAD afebrile confused no new issues reported last night dw staff Constitutional: requiring O2 Respiratory: no complaints Cardiovascular: no complaints Gastrointestinal: no complaints Genitourinary: no complaints Exam/Review of Systems Exam Vitals Vital Signs Date Temp Pulse Resp B/P (MAP) Pulse Ox O2 O2 Flow FiO2 Time Delivery Rate 11/30/18 2.0 10:42 11/30/18 85 22 95 Nasal 10:41 Cannula 11/30/18 179/80 10:12 (113) 11/30/18 97.8 10:00 Intake and Output 11/29/18 11/29/18 11/30/18 1515:00 23:00 07:00 IntakeIntake Total 0 ml OutputOutput Total 1700 ml BalanceBalance -1700 ml Constitutional: alert, well developed Psych: nl mood/affect Head: atraumatic Eyes: nl lids, nl sclera ENMT: nl external ears & nose Neck: non-tender Cardiovascular: nl pulses, other (S1S2) Gastrointestinal: soft, non-tender Musculoskeletal: nl extremities to inspection Extremities: normal pulses Neurological: nl speech, confused Skin: nl turgor Lymph: nontender Results Results 24hrs Laboratory Tests Test 11/29/18 12:11 11/29/18 14:10 11/29/18 17:30 11/29/18 21:57 Bedside Glucose 150 138 124 Ammonia 10 Vitamin B12 Level 984 H Thyroid Stimulating 2.880 Hormone (TSH) Test 11/30/18 02:32 11/30/18 07:04 11/30/18 07:19 11/30/18 08:14 Bedside Glucose 100 93 86 White Blood Count 7.5 Red Blood Count 3.00 L Hemoglobin 8.9 L Hematocrit 28.9 L Mean Corpuscular 96.3 Volume Mean Corpuscular 29.7 Hemoglobin Mean Corpuscular 30.8 L Hemoglobin Concent Red Cell 15.5 H Distribution Width Platelet Count 125 L Mean Platelet Volume 12.0 H Immature 1.900 H Granulocytes % Neutrophils % 77.7 H Lymphocytes % 6.9 L Monocytes % 11.9 H Eosinophils % 1.3 Basophils % 0.3 Nucleated Red Blood 0.0 Cells % Immature 0.140 H Granulocytes # Neutrophils # 5.9 Lymphocytes # 0.5 L Monocytes # 0.9 Eosinophils # 0.1 Basophils # 0.0 Nucleated Red Blood 0.0 Cells # Sodium Level 142 Potassium Level 4.0 Chloride Level 101 Carbon Dioxide Level 28 Anion Gap 13 Blood Urea Nitrogen 42 #H Creatinine 4.94 H Est Glomerular Filtrat Rate mL/min Glucose Level 80 Calcium Level 8.5 Phosphorus Level 5.4 H Magnesium Level 2.6 H Medications Medication Current Medications Hydralazine HCl (Apresoline) 10 mg Q6H PRN IV SBP >160 Last administered on 11/29/18at 17:00; Admin Dose 10 MG; Start 11/25/18 at 14:00 Ondansetron HCl (Zofran Inj) 4 mg Q4H PRN IV NAUSEA AND/OR VOMITING Last administered on 11/29/18at 01:10; Admin Dose 4 MG; Start 11/25/18 at 14:00 Insulin Glargine (Lantus) 10 units DAILY@0800 SC Last administered on 11/30/18 08:21; Admin Dose 10 UNITS; Start 11/26/18 at 08:00 Insulin Aspart (Novolog Insulin Pen) NOVOLOG *MILD* ALGORI... Q4 SC Last administered on 11/29/18at 12:15; Admin Dose 1 UNIT; Start 11/25/18 at 17:00 Albuterol/ Ipratropium (Duoneb) 3 ml Q6H RESP THERAPY PRN HHN SHORTNESS OF BREATH Last administered on 11/26/18at 20:17; Admin Dose 3 ML; Start 11/25/18 at 14:00 Acetaminophen (Tylenol Supp) 650 mg Q4H PRN [place] MILD PAIN(1-3) OR TEMP>38C; Start 11/25/18 at 14:00 Miscellaneous Information 1 ea NOTE XX ; Start 11/25/18 at 14:30 Glucose (Glutose) 15 gm Q15M PRN PO DECREASED GLUCOSE; Start 11/25/18 at 14:30 Glucose (Glutose) 22.5 gm Q15M PRN PO DECREASED GLUCOSE; Start 11/25/18 at 14:30 Dextrose (D50w Syringe) 25 ml Q15M PRN IV DECREASED GLUCOSE; Start 11/25/18 at 14:30 Dextrose (D50w Syringe) 50 ml Q15M PRN IV DECREASED GLUCOSE; Start 11/25/18 at 14:30 Glucagon (Glucagen) 1 mg Q15M PRN IM DECREASED GLUCOSE; Start 11/25/18 at 14:30 Glucose (Glutose) 15 gm Q15M PRN BUCCAL DECREASED GLUCOSE; Start 11/25/18 at 14:30 Budesonide (Pulmicort (Neb)) 0.5 mg BID RESP THERAPY HHN Last administered on 11/30/18at 10:41; Admin Dose 0.5 MG; Start 11/26/18 at 09:00 IV Flush (NS 10 ml) 10 ml PRN PRN IV IV PROTOCOL; Start 11/26/18 at 14:00 Metoprolol Tartrate (Lopressor) 5 mg Q4H PRN IV HR>110 Hold SBP<100 Last administered on 11/29/18at 17:20; Admin Dose 5 MG; Start 11/26/18 at 18:00 Levothyroxine Sodium (Synthroid) 125 mcg DAILY@06 PO Last administered on 11/30/18at 07:01; Admin Dose 125 MCG; Start 11/28/18 at 06:00 Ferric Sodium Gluconate Complex 125 mg/Sodium Chloride 110 ml @ 110 mls/hr DAILY@1300 IVPB Last administered on 11/29/18at 12:38; Admin Dose 110 MLS/HR; Start 11/28/18 at 13:00; Stop 12/02/18 at 13:59 Albumin Human 100 ml @ 100 mls/hr DURING DIALYSIS PRN IV HYPOTENTION DURING HD; Start 11/27/18 at 20:30 Acetaminophen (Tylenol Liquid) 650 mg Q4H PRN PO MILD PAIN(1-3)OR ELEVATED TEMP Last administered on 11/28/18at 18:59; Admin Dose 650 MG; Start 11/28/18 at 16:00 Haloperidol (Haldol) 2 mg Q4 PRN IV AGITATION Last administered on 11/30/18 03:47; Admin Dose 2 MG; Start 11/29/18 at 12:00 Metoprolol Tartrate (Lopressor) 25 mg BID PO Last administered on 11/29/18at 22:23; Admin Dose 25 MG; Start 11/29/18 at 21:00 Quetiapine Fumarate (Seroquel) 25 mg QHS PO Last administered on 11/29/18at 21:50; Admin Dose 25 MG; Start 11/29/18 at 21:00 Pantoprazole (Protonix Tab) 40 mg DAILY@06 PO Last administered on 11/30/18 07:00; Admin Dose 40 MG; Start 11/30/18 at 06:00 JODI HANSON Nov 30, 2018 11:48
[2018-11-30] MEDS: METOPROLOL 25 MG TAB PO SCH ×2 (12:23→20:25)
[2018-11-30] MEDS: DEXTROSE 5%-0.45% NACL 1,000 ML IV SCH (12:32)
[2018-11-30] MEDS: SOD FERRIC GLUC COMPLX 125 MG in SOD CHLORIDE 0.9% 100 ML IVPB SCH (12:40)
--- NOTE | 2018-11-30 13:55 | CONS ---
Consult Date/Type/Reason Admit Date/Time Nov 25, 2018 at 13:18 Initial Consult Date 11/26/18 Type of Consult Pulmonary Requesting Provider: GENNY SULLIVAN Date/Time of Note DATE: 11/30/18 TIME: 13:54 Subjective No respiratory distress this morning. Objective Vital Signs Date Temp Pulse Resp B/P (MAP) Pulse Ox O2 O2 Flow FiO2 Time Delivery Rate 11/30/18 93 12:38 11/30/18 97.8 20 154/94 95 Nasal 12:02 (114) Cannula 11/30/18 2.0 10:42 Intake and Output 11/29/18 11/29/18 11/30/18 1515:00 23:00 07:00 IntakeIntake Total 0 ml OutputOutput Total 1700 ml BalanceBalance -1700 ml Exam GENERAL: Elderly [place] lady comfortable at rest VITAL SIGNS: per chart NECK: Supple. No JVD or lymphadenopathy. CARDIAC EXAM: S1, S2. No added sounds or murmurs. CHEST: clear bilaterally, No added sounds, rales or wheezes ABDOMEN: Soft, nontender. No guarding or rebound. EXTREMITIES: No cyanosis, clubbing or edema. NEUROLOGIC: Generalized weakness. No focal deficits. Vent Setting Fraction of Inspired Oxygen pe: 27 Results/Medications Result Diagram: 11/30/1871811/30/18718 Results 24 hrs Laboratory Tests Test 11/29/18 14:10 11/29/18 17:30 11/29/18 21:57 11/30/18 02:32 Ammonia 10 Vitamin B12 Level 984 H Thyroid Stimulating 2.880 Hormone (TSH) Bedside Glucose 138 124 100 Test 11/30/18 07:04 11/30/18 07:19 11/30/18 08:14 11/30/18 12:39 Bedside Glucose 93 86 99 White Blood Count 7.5 Red Blood Count 3.00 L Hemoglobin 8.9 L Hematocrit 28.9 L Mean Corpuscular 96.3 Volume Mean Corpuscular 29.7 Hemoglobin Mean Corpuscular 30.8 L Hemoglobin Concent Red Cell 15.5 H Distribution Width Platelet Count 125 L Mean Platelet Volume 12.0 H Immature 1.900 H Granulocytes % Neutrophils % 77.7 H Lymphocytes % 6.9 L Monocytes % 11.9 H Eosinophils % 1.3 Basophils % 0.3 Nucleated Red Blood 0.0 Cells % Immature 0.140 H Granulocytes # Neutrophils # 5.9 Lymphocytes # 0.5 L Monocytes # 0.9 Eosinophils # 0.1 Basophils # 0.0 Nucleated Red Blood 0.0 Cells # Sodium Level 142 Potassium Level 4.0 Chloride Level 101 Carbon Dioxide Level 28 Anion Gap 13 Blood Urea Nitrogen 42 #H Creatinine 4.94 H Est Glomerular Filtrat Rate mL/min Glucose Level 80 Calcium Level 8.5 Phosphorus Level 5.4 H Magnesium Level 2.6 H Medications Current Medications Hydralazine HCl (Apresoline) 10 mg Q6H PRN IV SBP >160 Last administered on 11/29/18 17:00; Admin Dose 10 MG; Start 11/25/18 at 14:00 Ondansetron HCl (Zofran Inj) 4 mg Q4H PRN IV NAUSEA AND/OR VOMITING Last administered on 11/29/18at 01:10; Admin Dose 4 MG; Start 11/25/18 at 14:00 Insulin Glargine (Lantus) 10 units DAILY@0800 SC Last administered on 11/30/18at 08:21; Admin Dose 10 UNITS; Start 11/26/18 at 08:00 Insulin Aspart (Novolog Insulin Pen) NOVOLOG *MILD* ALGORI... Q4 SC Last administered on 11/29/18at 12:15; Admin Dose 1 UNIT; Start 11/25/18 at 17:00 Albuterol/ Ipratropium (Duoneb) 3 ml Q6H RESP THERAPY PRN HHN SHORTNESS OF BREATH Last administered on 11/26/18at 20:17; Admin Dose 3 ML; Start 11/25/18 at 14:00 Acetaminophen (Tylenol Supp) 650 mg Q4H PRN [place] MILD PAIN(1-3) OR TEMP>38C; Start 11/25/18 at 14:00 Miscellaneous Information 1 ea NOTE XX ; Start 11/25/18 at 14:30 Glucose (Glutose) 15 gm Q15M PRN PO DECREASED GLUCOSE; Start 11/25/18 at 14:30 Glucose (Glutose) 22.5 gm Q15M PRN PO DECREASED GLUCOSE; Start 11/25/18 at 14:30 Dextrose (D50w Syringe) 25 ml Q15M PRN IV DECREASED GLUCOSE; Start 11/25/18 at 14:30 Dextrose (D50w Syringe) 50 ml Q15M PRN IV DECREASED GLUCOSE; Start 11/25/18 at 14:30 Glucagon (Glucagen) 1 mg Q15M PRN IM DECREASED GLUCOSE; Start 11/25/18 at 14:30 Glucose (Glutose) 15 gm Q15M PRN BUCCAL DECREASED GLUCOSE; Start 11/25/18 at 14:30 Budesonide (Pulmicort (Neb)) 0.5 mg BID RESP THERAPY HHN Last administered on 11/30/18at 10:41; Admin Dose 0.5 MG; Start 11/26/18 at 09:00 IV Flush (NS 10 ml) 10 ml PRN PRN IV IV PROTOCOL; Start 11/26/18 at 14:00 Metoprolol Tartrate (Lopressor) 5 mg Q4H PRN IV HR>110 Hold SBP<100 Last admin istered on 11/29/18 17:20; Admin Dose 5 MG; Start 11/26/18 at 18:00 Levothyroxine Sodium (Synthroid) 125 mcg DAILY@06 PO Last administered on 11/30/18 07:01; Admin Dose 125 MCG; Start 11/28/18 at 06:00 Ferric Sodium Gluconate Complex 125 mg/Sodium Chloride 110 ml @ 110 mls/hr DAILY@1300 IVPB Last administered on 11/30/18 12:40; Admin Dose 110 MLS/HR; Start 11/28/18 at 13:00; Stop 12/02/18 at 13:59 Albumin Human 100 ml @ 100 mls/hr DURING DIALYSIS PRN IV HYPOTENTION DURING HD; Start 11/27/18 at 20:30 Acetaminophen (Tylenol Liquid) 650 mg Q4H PRN PO MILD PAIN(1-3)OR ELEVATED TEMP Last administered on 11/28/18 18:59; Admin Dose 650 MG; Start 11/28/18 at 16:00 Haloperidol (Haldol) 2 mg Q4 PRN IV AGITATION Last administered on 11/30/18 03:47; Admin Dose 2 MG; Start 11/29/18 at 12:00 Metoprolol Tartrate (Lopressor) 25 mg BID PO Last administered on 11/30/18 12:23; Admin Dose 25 MG; Start 11/29/18 at 21:00 Quetiapine Fumarate (Seroquel) 25 mg QHS PO Last administered on 11/29/18at 21:50; Admin Dose 25 MG; Start 11/29/18 at 21:00 Pantoprazole (Protonix Tab) 40 mg DAILY@06 PO Last administered on 11/30/18at 07:00; Admin Dose 40 MG; Start 11/30/18 at 06:00 Dextrose/Sodium Chloride 1,000 ml @ 40 mls/hr Q24H IV Last administered on 11/30/18at 12:32; Admin Dose 40 MLS/HR; Start 11/30/18 at 12:30 Assessment/Plan Hospital Course (Demo Recall) Assessment, plan 1. Stable posttransfusion 2. Chronic atrial fibrillation currently rate controlled 3. History of colon cancer 4. Resolution of hypotension ? DC planning EVA LOPEZ MD, [facility] Nov 30, 2018 13:55
--- NOTE | 2018-11-30 16:15 | CONS ---
Assessment/Plan Assessment/Plan Hospital Course (Demo Recall) IMPRESSION: 1. Hypotension-overall improved and not on pressors currently and now HTN requiring medications 2. Atrial fibrillation, primarily rate controlled off of antihypertensives at this time. 3. Anemia, worsening with guaiac positive stool consistent with gastrointestinal bleed. 4. Diabetes mellitus. 5. Acute on chronic renal failure, being initiated on hemodialysis. 6. Altered mental state. 7. Diastolic congestive heart failure due to a preserved EF by most recent echo and findings by chest x-ray. 8. History of coronary artery disease, nonobstructive by outside hospital ca theterization. 9. Shortness of breath with hypothyroidism. 10. Diabetes mellitus. Recc: -Increase BB to improve overall BP control -HD for volume removal -Follow HR/rhythm closely -not on anticoagulation secondary to GIB/anemia requiring transfusion Consultation Date/Type/Reason Admit Date/Time Nov 25, 2018 at 13:18 Initial Consult Date 11/26/18 Type of Consult Cardiology Reason for Consultation HTN Requesting Provider: GENNY SULLIVAN Date/Time of Note DATE: 11/30/18 TIME: 16:12 Exam/Review of Systems Vital Signs Vitals Vital Signs Date Temp Pulse Resp B/P (MAP) Pulse Ox O2 O2 Flow FiO2 Time Delivery Rate 11/30/18 185/83 16:10 (117) 11/30/18 97.5 101 20 96 Nasal 15:54 Cannula 11/30/18 2.0 10:42 Intake and Output 11/29/18 11/29/18 11/30/18 1414:59 22:59 06:59 IntakeIntake Total 100 ml 0 ml OutputOutput Total 1700 ml BalanceBalance 100 ml -1700 ml Exam Exam Review of Systems: CONSTITUTIONAL: No fevers, chills. PULMONARY: No sob CARDIOVASCULAR: No chest pain/palpitations GASTROINTESTINAL: No nausea/vomiting. GENITOURINARY: No hematuria/dysuria. MUSCULOSKELETAL: No myagias/arthalgias. PSYCHIATRIC: The patient denies depression. NEUROLOGIC: No weakness Constitutional: alert Psych: confusion Head: normocephalic ENMT: mucosa pink and moist Neck: supple, jvd (9 cm water) Respiratory: clear to auscultation Cardiovascular: regular rate and rhythm Gastrointestinal: soft, non-tender Musculoskeletal: muscle tone (normal) Extremities: edema (none) Neurological: other (No focal deficits) Labs Result Diagram: 11/30/18 0711/30/18 0719 Results 24hrs Laboratory Tests Test 11/29/18 17:30 11/29/18 21:57 11/30/18 02:32 11/30/18 07:04 Bedside Glucose 138 124 100 93 Test 11/30/18 07:19 11/30/18 08:14 11/30/18 12:39 White Blood Count 7.5 Red Blood Count 3.00 L Hemoglobin 8.9 L Hematocrit 28.9 L Mean Corpuscular 96.3 Volume Mean Corpuscular 29.7 Hemoglobin Mean Corpuscular 30.8 L Hemoglobin Concent Red Cell 15.5 H Distribution Width Platelet Count 125 L Mean Platelet Volume 12.0 H Immature 1.900 H Granulocytes % Neutrophils % 77.7 H Lymphocytes % 6.9 L Monocytes % 11.9 H Eosinophils % 1.3 Basophils % 0.3 Nucleated Red Blood 0.0 Cells % Immature 0.140 H Granulocytes # Neutrophils # 5.9 Lymphocytes # 0.5 L Monocytes # 0.9 Eosinophils # 0.1 Basophils # 0.0 Nucleated Red Blood 0.0 Cells # Sodium Level 142 Potassium Level 4.0 Chloride Level 101 Carbon Dioxide Level 28 Anion Gap 13 Blood Urea Nitrogen 42 #H Creatinine 4.94 H Est Glomerular Filtrat Rate mL/min Glucose Level 80 Calcium Level 8.5 Phosphorus Level 5.4 H Magnesium Level 2.6 H Bedside Glucose 86 99 Medications Medications Current Medications Hydralazine HCl (Apresoline) 10 mg Q6H PRN IV SBP >160 Last administered on 11/29/18at 17:00; Admin Dose 10 MG; Start 11/25/18 at 14:00 Ondansetron HCl (Zofran Inj) 4 mg Q4H PRN IV NAUSEA AND/OR VOMITING Last administered on 11/29/18at 01:10; Admin Dose 4 MG; Start 11/25/18 at 14:00 Insulin Glargine (Lantus) 10 units DAILY@0800 SC Last administered on 11/30/18at 08:21; Admin Dose 10 UNITS; Start 11/26/18 at 08:00 Insulin Aspart (Novolog Insulin Pen) NOVOLOG *MILD* ALGORI... Q4 SC Last administered on 11/29/18at 12:15; Admin Dose 1 UNIT; Start 11/25/18 at 17:00 Albuterol/ Ipratropium (Duoneb) 3 ml Q6H RESP THERAPY PRN HHN SHORTNESS OF BREATH Last administered on 11/26/18at 20:17; Admin Dose 3 ML; Start 11/25/18 at 14:00 Acetaminophen (Tylenol Supp) 650 mg Q4H PRN [place] MILD PAIN(1-3) OR TEMP>38C; Start 11/25/18 at 14:00 Miscellaneous Information 1 ea NOTE XX ; Start 11/25/18 at 14:30 Glucose (Glutose) 15 gm Q15M PRN PO DECREASED GLUCOSE; Start 11/25/18 at 14:30 Glucose (Glutose) 22.5 gm Q15M PRN PO DECREASED GLUCOSE; Start 11/25/18 at 14:30 Dextrose (D50w Syringe) 25 ml Q15M PRN IV DECREASED GLUCOSE; Start 11/25/18 at 14:30 Dextrose (D50w Syringe) 50 ml Q15M PRN IV DECREASED GLUCOSE; Start 11/25/18 at 14:30 Glucagon (Glucagen) 1 mg Q15M PRN IM DECREASED GLUCOSE; Start 11/25/18 at 14:30 Glucose (Glutose) 15 gm Q15M PRN BUCCAL DECREASED GLUCOSE; Start 11/25/18 at 14:30 Budesonide (Pulmicort (Neb)) 0.5 mg BID RESP THERAPY HHN Last administered on 11/30/18at 10:41; Admin Dose 0.5 MG; Start 11/26/18 at 09:00 IV Flush (NS 10 ml) 10 ml PRN PRN IV IV PROTOCOL; Start 11/26/18 at 14:00 Metoprolol Tartrate (Lopressor) 5 mg Q4H PRN IV HR>110 Hold SBP<100 Last administered on 11/29/18at 17:20; Admin Dose 5 MG; Start 11/26/18 at 18:00 Levothyroxine Sodium (Synthroid) 125 mcg DAILY@06 PO Last administered on 11/30/18at 07:01; Admin Dose 125 MCG; Start 11/28/18 at 06:00 Ferric Sodium Gluconate Complex 125 mg/Sodium Chloride 110 ml @ 110 mls/hr DAILY@1300 IVPB Last administered on 11/30/18at 12:40; Admin Dose 110 MLS/HR; Start 11/28/18 at 13:00; Stop 12/02/18 at 13:59 Albumin Human 100 ml @ 100 mls/hr DURING DIALYSIS PRN IV HYPOTENTION DURING HD; Start 11/27/18 at 20:30 Acetaminophen (Tylenol Liquid) 650 mg Q4H PRN PO MILD PAIN(1-3)OR ELEVATED TEMP Last administered on 11/28/18at 18:59; Admin Dose 650 MG; Start 11/28/18 at 16:00 Haloperidol (Haldol) 2 mg Q4 PRN IV AGITATION Last administered on 11/30/18 15:00; Admin Dose 2 MG; Start 11/29/18 at 12:00 Metoprolol Tartrate (Lopressor) 25 mg BID PO Last administered on 11/30/18 12:23; Admin Dose 25 MG; Start 11/29/18 at 21:00 Quetiapine Fumarate (Seroquel) 25 mg QHS PO Last administered on 11/29/18 21:50; Admin Dose 25 MG; Start 11/29/18 at 21:00 Pantoprazole (Protonix Tab) 40 mg DAILY@06 PO Last administered on 11/30/18 07:00; Admin Dose 40 MG; Start 11/30/18 at 06:00 Dextrose/Sodium Chloride 1,000 ml @ 40 mls/hr Q24H IV Last administered on 11/30/18at 12:32; Admin Dose 40 MLS/HR; Start 11/30/18 at 12:30 CARMELO MAE Nov 30, 2018 16:15
--- NOTE | 2018-11-30 20:22 | EEG ---
EEG NOTE Report Details DATE OF TEST: 11/29/18 HISTORY: The patient is a 78-year-old F who presents with altered mental status. This EEG is requested to evaluate for an epileptic disorder. SEDATION: None. CONDITIONS OF RECORDING: This EEG was recorded digitally on the [employer] machine, using the International 10-20 System of electrodes plus anterior temporals and [place]. STATES SAMPLED: Agitated. FINDINGS: The study is technically limited by patient motion artifact.. The background is continuous and grossly symmetric. Photic stimulation does not elicit any definite driving responses or epilept iform discharges. Hyperventilation was not performed. No asymmetries, focal abnormalities or epileptiform discharges were seen. IMPRESSION: Technically limited electroencephalogram without obvious epileptiform activity. SHERIF MURDOCK Nov 30, 2018 20:22
[2018-11-30] MEDS: QUETIAPINE 25 MG TAB PO SCH (20:24)
[2018-12-01] VITALS (34 sets, daily range): BP systolic 110–197; BP diastolic 64–110; PULSE 78–152; RESP 20–22
[2018-12-01] MEDS: INSULIN ASPART [NOVOLOG] 3 ML PEN SC SCH ×6 (01:00→20:42)
[2018-12-01] MEDS: HALOPERIDOL 5 MG INJ IV PRN ×2 (03:12→21:52)
[2018-12-01] MEDS: PANTOPRAZOLE (EC) 40 MG TAB PO SCH (06:08)
[2018-12-01] MEDS: LEVOTHYROXINE 125 MCG TAB PO SCH (06:08)
[2018-12-01] MEDS: BUDESONIDE (NEB) 0.5MG/2ML AMP HHN SCH ×2 (08:32→20:18)
[2018-12-01] MEDS: hydrALAzine 20 MG INJ IV PRN ×2 (09:25→21:24)
[2018-12-01] MEDS: METOPROLOL 25 MG TAB PO SCH ×2 (09:26→20:42)
[2018-12-01] MEDS: INSULIN GLARGINE [LANTus] (100 UNITS/ML) SYG SC SCH (09:49)
--- NOTE | 2018-12-01 11:21 | CONS ---
Assessment/Plan Assessment/Plan Assessment/Plan (Daily) 1. Oliguric acute kidney injury on top of chronic kidney disease stage IV with previous baseline creatinine around 2.0 mg/dL. Etiology of acute kidney injury was secondary to acute tubular necrosis due to hemodynamic sepsis. The patient has been initiated on dialysis. HD today. 2. Anemia, etiology is multifactorial secondary to chronic kidney disease, iron deficiency, questionable GI bleed. Patient is currently on IV iron on Epogen. The patient's hemoglobin and hematocrit levels have been improving. Continue to monitor. Continue PPI. Follow up with GI. 3. Mineral bone disorder. Monitor calcium and phosphorus levels. 4. Encephalopathy. Etiology is toxic metabolic, possibly uremic. Continue to monitor. 5. Coronary artery disease. Continue medical management. 6. Diabetes. Continue current insulin regimen. 7. Hypothyroidism. Continue Synthroid. 8. History of asthma. Continue current treatment plan. 9. History of atrial fibrillation. 10. Thrombocytopenia. Continue to monitor. 11. Hypertension. Blood pressure controlled. Consultation Date/Type/Reason Admit Date/Time Nov 25, 2018 at 13:18 Initial Consult Date 11/26/18 Requesting Provider: GENNY SULLIVAN Date/Time of Note DATE: 12/01/18 TIME: 11:20 24 HR Interval Summary Free Text/Dictation confused and in restraints small amount of urine output dw rn gen nad, confused cv rrr pulm ctab abd soft, nd, nt +bs ext: no edema Exam/Review of Systems Exam Vitals Vital Signs Date Temp Pulse Resp B/P (MAP) Pulse Ox O2 O2 Flow FiO2 Time Delivery Rate 12/01/18 97.5 100 22 140/85 94 Nasal 09:52 (103) Cannula 12/01/18 4.0 08:37 Intake and Output 11/30/18 11/30/18 12/01/18 1515:00 23:00 07:00 IntakeIntake Total 340 ml OutputOutput Total 100 ml BalanceBalance 240 ml Results Result Diagram: 11/30/1871811/30/18718 Results 24hrs Laboratory Tests Test 11/30/18 12:39 11/30/18 16:28 11/30/18 20:43 12/01/18 00:41 Bedside Glucose 99 106 130 137 Test 12/01/18 06:15 12/01/18 06:30 12/01/18 08:17 12/01/18 09:48 Bedside Glucose 154 161 148 Urine Color LASHONDA Urine Clarity TURBID A Urine pH 7.0 Urine Specific 1.025 [place] Urine Ketones TRACE A Urine Nitrite NEGATIVE Urine Bilirubin NEGATIVE Urine Urobilinogen NEGATIVE Urine Leukocyte 1+ H Esterase Urine Microscopic > 182 H RBC Urine Microscopic > 182 H WBC Urine Squamous FEW Epithelial Cells Urine Bacteria MODERATE Urine Mucus FEW A Urine Hemoglobin 2+ H Urine Random 44.90 Creatinine Urine Random Sodium 122 H Urine Glucose 1+ H Urine Total Protein Medications Medication Current Medications Hydralazine HCl (Apresoline) 10 mg Q6H PRN IV SBP >160 Last administered on 12/01/18 09:25; Admin Dose 10 MG; Start 11/25/18 at 14:00 Ondansetron HCl (Zofran Inj) 4 mg Q4H PRN IV NAUSEA AND/OR VOMITING Last administered on 11/29/18at 01:10; Admin Dose 4 MG; Start 11/25/18 at 14:00 Insulin Glargine (Lantus) 10 units DAILY@0800 SC Last administered on 12/01/18at 09:49; Admin Dose 10 UNITS; Start 11/26/18 at 08:00 Insulin Aspart (Novolog Insulin Pen) NOVOLOG *MILD* ALGORI... Q4 SC Last administered on 12/01/18at 06:26; Admin Dose 1 UNIT; Start 11/25/18 at 17:00 Albuterol/ Ipratropium (Duoneb) 3 ml Q6H RESP THERAPY PRN HHN SHORTNESS OF BREATH Last administered on 11/26/18at 20:17; Admin Dose 3 ML; Start 11/25/18 at 14:00 Acetaminophen (Tylenol Supp) 650 mg Q4H PRN [place] MILD PAIN(1-3) OR TEMP>38C; Start 11/25/18 at 14:00 Miscellaneous Information 1 ea NOTE XX ; Start 11/25/18 at 14:30 Glucose (Glutose) 15 gm Q15M PRN PO DECREASED GLUCOSE; Start 11/25/18 at 14:30 Glucose (Glutose) 22.5 gm Q15M PRN PO DECREASED GLUCOSE; Start 11/25/18 at 14:30 Dextrose (D50w Syringe) 25 ml Q15M PRN IV DECREASED GLUCOSE; Start 11/25/18 at 14:30 Dextrose (D50w Syringe) 50 ml Q15M PRN IV DECREASED GLUCOSE; Start 11/25/18 at 14:30 Glucagon (Glucagen) 1 mg Q15M PRN IM DECREASED GLUCOSE; Start 11/25/18 at 14:30 Glucose (Glutose) 15 gm Q15M PRN BUCCAL DECREASED GLUCOSE; Start 11/25/18 at 14:30 Budesonide (Pulmicort (Neb)) 0.5 mg BID RESP THERAPY HHN Last administered on 12/01/18at 08:32; Admin Dose 0.5 MG; Start 11/26/18 at 09:00 IV Flush (NS 10 ml) 10 ml PRN PRN IV IV PROTOCOL; Start 11/26/18 at 14:00 Metoprolol Tartrate (Lopressor) 5 mg Q4H PRN IV HR>110 Hold SBP<100 Last administered on 11/29/18 17:20; Admin Dose 5 MG; Start 11/26/18 at 18:00 Levothyroxine Sodium (Synthroid) 125 mcg DAILY@06 PO Last administered on 12/01/18 06:08; Admin Dose 125 MCG; Start 11/28/18 at 06:00 Ferric Sodium Gluconate Complex 125 mg/Sodium Chloride 110 ml @ 110 mls/hr DAILY@1300 IVPB Last administered on 11/30/18 12:40; Admin Dose 110 MLS/HR; Start 11/28/18 at 13:00; Stop 12/02/18 at 13:59 Albumin Human 100 ml @ 100 mls/hr DURING DIALYSIS PRN IV HYPOTENTION DURING HD; Start 11/27/18 at 20:30 Acetaminophen (Tylenol Liquid) 650 mg Q4H PRN [place] MILD PAIN(1-3)OR ELEVATED TEMP Last administered on 11/28/18at 18:59; Admin Dose 650 MG; Start 11/28/18 at 16:00 Haloperidol (Haldol) 2 mg Q4 PRN IV AGITATION Last administered on 12/01/18 03:12; Admin Dose 2 MG; Start 11/29/18 at 12:00 Metoprolol Tartrate (Lopressor) 25 mg BID PO Last administered on 12/01/18 09:26; Admin Dose 25 MG; Start 11/29/18 at 21:00 Quetiapine Fumarate (Seroquel) 25 mg QHS PO Last administered on 4/19/19at 20:24; Admin Dose 25 MG; Start 11/29/18 at 21:00 Pantoprazole (Protonix Tab) 40 mg DAILY@06 PO Last administered on 12/01/18at 06:08; Admin Dose 40 MG; Start 11/30/18 at 06:00 Dextrose/Sodium Chloride 1,000 ml @ 40 mls/hr Q24H IV Last administered on 11/30/18at 12:32; Admin Dose 40 MLS/HR; Start 11/30/18 at 12:30 TEA NEWBY MD Dec 01, 2018 11:21
--- NOTE | 2018-12-01 12:30 | PN ---
Date/Time of Note Date/Time of Note DATE: 12/01/18 TIME: 12:29 Assessment/Plan VTE Prophylaxis Risk score (from Nsg)>0 risk: 10 SCD applied (from Nsg): Yes Pharmacological prophylaxis: LMWH Lines/Catheters IV Catheter Type (from [facility]): Trialysis Catheter Urinary Cath still in place: Yes Reason Cath still needed: skin wounds contaminated by urine Assessment/Plan Hospital Course 1. Oliguric acute kidney injury on top of chronic kidney disease stage IV with previous baseline creatinine around 2.0 mg/dL. Etiology of acute kidney injury was secondary to acute tubular necrosis due to hemodynamic sepsis. The patient has been initiated on dialysis, status post 3 sessions. Plan for hemodialysis again tomorrow. Monitor for any signs of renal recovery. 2. Anemia, etiology is multifactorial secondary to chronic kidney disease, iron deficiency, questionable GI bleed. Patient is currently on IV iron on Epogen. The patient's hemoglobin and hematocrit levels have been improving. Continue to monitor. Continue PPI. Follow up with GI. 3. Mineral bone disorder. Monitor calcium and phosphorus levels. 4. Encephalopathy. Etiology is toxic metabolic, possibly uremic. Continue to monitor. 5. Coronary artery disease. Continue medical management. 6. Diabetes. Continue current insulin regimen. 7. Hypothyroidism. Continue Synthroid. 8. History of asthma. Continue current treatment plan. 9. History of atrial fibrillation. 10. Thrombocytopenia. Continue to monitor. 11. Hypertension. Blood pressure controlled. Result Diagram: 11/30/18 0711/30/18718 Results 24hrs Laboratory Tests Test 11/30/18 12:39 11/30/18 16:28 11/30/18 20:43 12/01/18 00:41 Bedside Glucose 99 106 130 137 Test 12/01/18 06:15 12/01/18 06:30 12/01/18 08:17 12/01/18 09:48 Bedside Glucose 154 161 148 Urine Color LASHONDA Urine Clarity TURBID A Urine pH 7.0 Urine Specific 1.025 [place] Urine Ketones TRACE A Urine Nitrite NEGATIVE Urine Bilirubin NEGATIVE Urine Urobilinogen NEGATIVE Urine Leukocyte 1+ H Esterase Urine Microscopic > 182 H RBC Urine Microscopic > 182 H WBC Urine Squamous FEW Epithelial Cells Urine Bacteria MODERATE Urine Mucus FEW A Urine Hemoglobin 2+ H Urine Random 44.90 Creatinine Urine Random Sodium 122 H Urine Glucose 1+ H Urine Total Protein Subjective 24 Hr Interval Summary Free Text/Dictation Patient opens eyes but is not verbally responsive Exam/Review of Systems Exam Vitals Vital Signs Date Temp Pulse Resp B/P (MAP) Pulse Ox O2 O2 Flow FiO2 Time Delivery Rate 12/01/18 97.4 107 22 142/75 93 Nasal 11:48 (97) Cannula 12/01/18 4.0 08:37 Intake and Output 11/30/18 11/30/18 12/01/18 1515:00 23:00 07:00 IntakeIntake Total 340 ml OutputOutput Total 100 ml BalanceBalance 240 ml Constitutional: well developed Head: normocephalic, atraumatic Neck: supple Respiratory: diminished breath sounds Cardiovascular: regular rate and rhythm Gastrointestinal: soft, non-tender Extremities: normal pulses Results Results 24hrs Laboratory Tests Test 11/30/18 12:39 11/30/18 16:28 11/30/18 20:43 12/01/18 00:41 Bedside Glucose 99 106 130 137 Test 12/01/18 06:15 12/01/18 06:30 12/01/18 08:17 12/01/18 09:48 Bedside Glucose 154 161 148 Urine Color LASHONDA Urine Clarity TURBID A Urine pH 7.0 Urine Specific 1.025 [place] Urine Ketones TRACE A Urine Nitrite NEGATIVE Urine Bilirubin NEGATIVE Urine Urobilinogen NEGATIVE Urine Leukocyte 1+ H Esterase Urine Microscopic > 182 H RBC Urine Microscopic > 182 H WBC Urine Squamous FEW Epithelial Cells Urine Bacteria MODERATE Urine Mucus FEW A Urine Hemoglobin 2+ H Urine Random 44.90 Creatinine Urine Random Sodium 122 H Urine Glucose 1+ H Urine Total Protein Medications Medication Current Medications Hydralazine HCl (Apresoline) 10 mg Q6H PRN IV SBP >160 Last administered on 12/01/18at 09:25; Admin Dose 10 MG; Start 11/25/18 at 14:00 Ondansetron HCl (Zofran Inj) 4 mg Q4H PRN IV NAUSEA AND/OR VOMITING Last administered on 11/29/18at 01:10; Admin Dose 4 MG; Start 11/25/18 at 14:00 Insulin Glargine (Lantus) 10 units DAILY@0800 SC Last administered on 12/01/18at 09:49; Admin Dose 10 UNITS; Start 11/26/18 at 08:00 Insulin Aspart (Novolog Insulin Pen) NOVOLOG *MILD* ALGORI... Q4 SC Last administered on 12/01/18at 06:26; Admin Dose 1 UNIT; Start 11/25/18 at 17:00 Albuterol/ Ipratropium (Duoneb) 3 ml Q6H RESP THERAPY PRN HHN SHORTNESS OF B REATH Last administered on 11/26/18at 20:17; Admin Dose 3 ML; Start 11/25/18 at 14:00 Acetaminophen (Tylenol Supp) 650 mg Q4H PRN [place] MILD PAIN(1-3) OR TEMP>38C; Start 11/25/18 at 14:00 Miscellaneous Information 1 ea NOTE XX ; Start 11/25/18 at 14:30 Glucose (Glutose) 15 gm Q15M PRN PO DECREASED GLUCOSE; Start 11/25/18 at 14:30 Glucose (Glutose) 22.5 gm Q15M PRN PO DECREASED GLUCOSE; Start 11/25/18 at 14:30 Dextrose (D50w Syringe) 25 ml Q15M PRN IV DECREASED GLUCOSE; Start 11/25/18 at 14:30 Dextrose (D50w Syringe) 50 ml Q15M PRN IV DECREASED GLUCOSE; Start 11/25/18 at 14:30 Glucagon (Glucagen) 1 mg Q15M PRN IM DECREASED GLUCOSE; Start 11/25/18 at 14:30 Glucose (Glutose) 15 gm Q15M PRN BUCCAL DECREASED GLUCOSE; Start 11/25/18 at 14:30 Budesonide (Pulmicort (Neb)) 0.5 mg BID RESP THERAPY HHN Last administered on 12/01/18at 08:32; Admin Dose 0.5 MG; Start 11/26/18 at 09:00 IV Flush (NS 10 ml) 10 ml PRN PRN IV IV PROTOCOL; Start 11/26/18 at 14:00 Metoprolol Tartrate (Lopressor) 5 mg Q4H PRN IV HR>110 Hold SBP<100 Last administered on 11/29/18at 17:20; Admin Dose 5 MG; Start 11/26/18 at 18:00 Levothyroxine Sodium (Synthroid) 125 mcg DAILY@06 PO Last administered on 12/01/18at 06:08; Admin Dose 125 MCG; Start 11/28/18 at 06:00 Ferric Sodium Gluconate Complex 125 mg/Sodium Chloride 110 ml @ 110 mls/hr DAILY@1300 IVPB Last administered on 11/30/18 12:40; Admin Dose 110 MLS/HR; Start 11/28/18 at 13:00; Stop 12/02/18 at 13:59 Albumin Human 100 ml @ 100 mls/hr DURING DIALYSIS PRN IV HYPOTENTION DURING HD; Start 11/27/18 at 20:30 Acetaminophen (Tylenol Liquid) 650 mg Q4H PRN PO MILD PAIN(1-3)OR ELEVATED TEMP Last administered on 11/28/18 18:59; Admin Dose 650 MG; Start 11/28/18 at 16:00 Haloperidol (Haldol) 2 mg Q4 PRN IV AGITATION Last administered on 12/01/18 03:12; Admin Dose 2 MG; Start 11/29/18 at 12:00 Metoprolol Tartrate (Lopressor) 25 mg BID PO Last administered on 12/01/18 09:26; Admin Dose 25 MG; Start 11/29/18 at 21:00 Quetiapine Fumarate (Seroquel) 25 mg QHS PO Last administered on 11/30/18 20:24; Admin Dose 25 MG; Start 11/29/18 at 21:00 Pantoprazole (Protonix Tab) 40 mg DAILY@06 PO Last administered on 12/01/18 06:08; Admin Dose 40 MG; Start 11/30/18 at 06:00 Dextrose/Sodium Chloride 1,000 ml @ 40 mls/hr Q24H IV Last administered on 12:32; Admin Dose 40 MLS/HR; Start 11/30/18 at 12:30 KASIA WORERLL Dec 01, 2018 12:30
--- NOTE | 2018-12-01 12:37 | CONS ---
Assessment/Plan Assessment/Plan Assessment/Plan (Daily) IMPRESSION: 1. Anemia due to the chronic gastrointestinal blood loss and also chronic disease. 2. Diabetes mellitus. 3. Thrombocytopenia. 4. Bronchial asthma. 5. Atrial fibrillation. 6. Renal failure. Plan Waiting for the report from the other hospital Patient's CEA level was mildly elevated at 6.4 patient might need repeat colonoscopy Consultation Date/Type/Reason Admit Date/Time Nov 25, 2018 at 13:18 Initial Consult Date 11/26/18 Requesting Provider: GENNY SULLIVAN Date/Time of Note DATE: 12/01/18 TIME: 12:37 24 HR Interval Summary Constitutional: improved, disoriented Exam/Review of Systems Exam Vitals Vital Signs Date Temp Pulse Resp B/P (MAP) Pulse Ox O2 O2 Flow FiO2 Time Delivery Rate 12/01/18 97.4 107 22 142/75 93 Nasal 11:48 (97) Cannula 12/01/18 4.0 08:37 Intake and Output 11/30/18 11/30/18 12/01/18 1515:00 23:00 07:00 IntakeIntake Total 340 ml OutputOutput Total 100 ml BalanceBalance 240 ml Constitutional: alert, oriented, well developed Psych: no complaints, nl mood/affect Head: normocephalic, atraumatic Eyes: nl conjunctiva, EOMI, nl lids, nl sclera, PERRL ENMT: nl external ears & nose, nl lips & teeth, nl nasal mucosa & septum Neck: supple, non-tender Respiratory: clear to auscultation, normal air movement Cardiovascular: regular rate and rhythm, nl pulses Gastrointestinal: soft, nl liver, spleen, non-tender Musculoskeletal: nl extremities to inspection, nl gait and stance Extremities: normal pulses Neurological: [employer] II-X[employer] intact, nl mental status, nl speech, nl strength Skin: nl turgor; No rash or lesions Lymph: nl lymph nodes Results Result Diagram: 11/30/1871811/30/18718 Results 24hrs Laboratory Tests Test 11/30/18 12:39 11/30/18 16:28 11/30/18 20:43 12/01/18 00:41 Bedside Glucose 99 106 130 137 Test 12/01/18 06:15 12/01/18 06:30 12/01/18 08:17 12/01/18 09:48 Bedside Glucose 154 161 148 Urine Color LASHONDA Urine Clarity TURBID A Urine pH 7.0 Urine Specific 1.025 [place] Urine Ketones TRACE A Urine Nitrite NEGATIVE Urine Bilirubin NEGATIVE Urine Urobilinogen NEGATIVE Urine Leukocyte 1+ H Esterase Urine Microscopic > 182 H RBC Urine Microscopic > 182 H WBC Urine Squamous FEW Epithelial Cells Urine Bacteria MODERATE Urine Mucus FEW A Urine Hemoglobin 2+ H Urine Random 44.90 Creatinine Urine Random Sodium 122 H Urine Glucose 1+ H Urine Total Protein Medications Medication Current Medications Hydralazine HCl (Apresoline) 10 mg Q6H PRN IV SBP >160 Last administered on 12/01/18 09:25; Admin Dose 10 MG; Start 11/25/18 at 14:00 Ondansetron HCl (Zofran Inj) 4 mg Q4H PRN IV NAUSEA AND/OR VOMITING Last administered on 11/29/18at 01:10; Admin Dose 4 MG; Start 11/25/18 at 14:00 Insulin Glargine (Lantus) 10 units DAILY@0800 SC Last administered on 12/01/18at 09:49; Admin Dose 10 UNITS; Start 11/26/18 at 08:00 Insulin Aspart (Novolog Insulin Pen) NOVOLOG *MILD* ALGORI... Q4 SC Last administered on 12/01/18at 06:26; Admin Dose 1 UNIT; Start 11/25/18 at 17:00 Albuterol/ Ipratropium (Duoneb) 3 ml Q6H RESP THERAPY PRN HHN SHORTNESS OF BREATH Last administered on 11/26/18at 20:17; Admin Dose 3 ML; Start 11/25/18 at 14:00 Acetaminophen (Tylenol Supp) 650 mg Q4H PRN [place] MILD PAIN(1-3) OR TEMP>38C; Start 11/25/18 at 14:00 Miscellaneous Information 1 ea NOTE XX ; Start 11/25/18 at 14:30 Glucose (Glutose) 15 gm Q15M PRN PO DECREASED GLUCOSE; Start 11/25/18 at 14:30 Glucose (Glutose) 22.5 gm Q15M PRN PO DECREASED GLUCOSE; Start 11/25/18 at 14:30 Dextrose (D50w Syringe) 25 ml Q15M PRN IV DECREASED GLUCOSE; Start 11/25/18 at 14:30 Dextrose (D50w Syringe) 50 ml Q15M PRN IV DECREASED GLUCOSE; Start 11/25/18 at 14:30 Glucagon (Glucagen) 1 mg Q15M PRN IM DECREASED GLUCOSE; Start 11/25/18 at 14:30 Glucose (Glutose) 15 gm Q15M PRN BUCCAL DECREASED GLUCOSE; Start 11/25/18 at 14:30 Budesonide (Pulmicort (Neb)) 0.5 mg BID RESP THERAPY HHN Last administered on 12/01/18at 08:32; Admin Dose 0.5 MG; Start 11/26/18 at 09:00 IV Flush (NS 10 ml) 10 ml PRN PRN IV IV PROTOCOL; Start 11/26/18 at 14:00 Metoprolol Tartrate (Lopressor) 5 mg Q4H PRN IV HR>110 Hold SBP<100 Last administered on 11/29/18at 17:20; Admin Dose 5 MG; Start 11/26/18 at 18:00 Levothyroxine Sodium (Synthroid) 125 mcg DAILY@06 PO Last administered on 12/01/18at 06:08; Admin Dose 125 MCG; Start 11/28/18 at 06:00 Ferric Sodium Gluconate Complex 125 mg/Sodium Chloride 110 ml @ 110 mls/hr DAILY@1300 IVPB Last administered on 11/30/18at 12:40; Admin Dose 110 MLS/HR; Start 11/28/18 at 13:00; Stop 12/02/18 at 13:59 Albumin Human 100 ml @ 100 mls/hr DURING DIALYSIS PRN IV HYPOTENTION DURING HD; Start 11/27/18 at 20:30 Acetaminophen (Tylenol Liquid) 650 mg Q4H PRN PO MILD PAIN(1-3)OR ELEVATED TEMP Last administered on 11/28/18at 18:59; Admin Dose 650 MG; Start 11/28/18 at 16:00 Haloperidol (Haldol) 2 mg Q4 PRN IV AGITATION Last administered on 12/01/18 03:12; Admin Dose 2 MG; Start 11/29/18 at 12:00 Metoprolol Tartrate (Lopressor) 25 mg BID PO Last administered on 12/01/18 09:26; Admin Dose 25 MG; Start 11/29/18 at 21:00 Quetiapine Fumarate (Seroquel) 25 mg QHS PO Last administered on 11/30/18at 20:24; Admin Dose 25 MG; Start 11/29/18 at 21:00 Pantoprazole (Protonix Tab) 40 mg DAILY@06 PO Last administered on 12/01/18at 06:08; Admin Dose 40 MG; Start 11/30/18 at 06:00 Dextrose/Sodium Chloride 1,000 ml @ 40 mls/hr Q24H IV Last administered on 11/30/18at 12:32; Admin Dose 40 MLS/HR; Start 11/30/18 at 12:30 KASANDRA FLOYD MD Dec 01, 2018 12:37
[2018-12-01] MEDS: SOD FERRIC GLUC COMPLX 125 MG in SOD CHLORIDE 0.9% 100 ML IVPB SCH (13:30)
[2018-12-01] MEDS: DEXTROSE 5%-0.45% NACL 1,000 ML IV SCH (13:31)
--- NOTE | 2018-12-01 14:49 | CONS ---
Consult Date/Type/Reason Admit Date/Time Nov 25, 2018 at 13:18 Initial Consult Date 11/26/18 Requesting Provider: GENNY SULLIVAN Date/Time of Note DATE: 12/01/18 TIME: 14:47 Subjective NO acute events - NO CP now - on HD now - confused. ROS: No fever, no chills, no nausea, no vomiting, no diarrhea/constipation - per nurse - pt confused Objective Vitals Vital Signs Date Temp Pulse Resp B/P (MAP) Pulse Ox O2 O2 Flow FiO2 Time Delivery Rate 12/01/18 90 12:01 12/01/18 97.4 22 142/75 93 Nasal 11:48 (97) Cannula 12/01/18 4.0 08:37 Intake and Output 11/30/18 11/30/18 12/01/18 1515:00 23:00 07:00 IntakeIntake Total 340 ml OutputOutput Total 100 ml BalanceBalance 240 ml Exam General: WN/WD/NAD, AOx 0 confused HEENT: Unicetric/atraumatic/EOMI (does not follow commands) NECK: JVD elevated, no thyromegaly Lymph: no lymphadenopathy HEART: regular with no S3, II/ systolic murmur at apex, PMI L LUNGS: Coarse sounds ABD: soft, NT, ND, +BS : Intact Neuro: non focal SKIN: chronic changes EXT: trace edema Results/Medications Result Diagram: 11/30/1871811/30/18718 Results 24 hrs Laboratory Tests Test 11/30/18 16:28 11/30/18 20:43 12/01/18 00:41 12/01/18 06:15 Bedside Glucose 106 130 137 154 Test 12/01/18 06:30 12/01/18 08:17 12/01/18 09:48 12/01/18 13:09 Urine Color LASHONDA Urine Clarity TURBID A Urine pH 7.0 Urine Specific 1.025 [place] Urine Ketones TRACE A Urine Nitrite NEGATIVE Urine Bilirubin NEGATIVE Urine Urobilinogen NEGATIVE Urine Leukocyte 1+ H Esterase Urine Microscopic > 182 H RBC Urine Microscopic > 182 H WBC Urine Squamous FEW Epithelial Cells Urine Bacteria MODERATE Urine Mucus FEW A Urine Hemoglobin 2+ H Urine Random 44.90 Creatinine Urine Random Sodium 122 H Urine Glucose 1+ H Urine Total Protein Bedside Glucose 161 148 191 Home Meds Reported Medications Alprazolam* (Alprazolam*) 0.25 Mg Tablet, 0.25 MG PO NEEDED PRN for ANXIETY, TAB 11/26/18 Magnesium Oxide* (Mag-Oxide*) 400 Mg Tablet, 400 MG PO BID, TAB 11/26/18 Losartan Potassium* (Losartan Potassium*) 50 Mg Tablet, 50 MG PO BID PRN for NEEDED, TAB 11/26/18 Atorvastatin Calcium* (Atorvastatin Calcium*) 20 Mg Tablet, 20 MG PO QHS, #30 TAB 11/26/18 Potassium Chloride* (Potassium Chloride*) 8 Meq Capsule.er, 8 MEQ PO DAILY, CAP 11/26/18 Dronedarone Hydrochloride* (Multaq*) 400 Mg Tablet, 400 MG PO BID, TAB 11/26/18 Insulin Aspart (Novolog) 100 Unit/1 Ml Cartridge, 8 UNIT SQ AC BREAKFAST DINNER 11/26/18 Clopidogrel Bisulfate* (Clopidogrel Bisulfate*) 75 Mg Tablet, 75 MG PO DAILY, #30 TAB 11/26/18 Carvedilol* (Carvedilol*) 3.125 Mg Tablet, 3.125 MG PO BID, #60 TAB 11/26/18 Gabapentin* (Gabapentin*) 300 Mg Capsule, 300 MG PO DAILY, #60 CAP NEEDED 11/26/18 Aspirin* (Aspirin* EC) 81 Mg Tablet.dr, 81 MG PO DAILY, TAB 11/26/18 Amlodipine Besylate* (Amlodipine Besylate*) 10 Mg Tablet, 10 MG PO DAILY, #30 TAB TAKE NEEDED 11/26/18 Famotidine* (Famotidine*) 20 Mg Tablet, 20 MG PO BID, #30 TAB 11/26/18 Furosemide* (Furosemide*) 40 Mg Tablet, 40 MG PO BID, TAB 11/26/18 Levothyroxine Sodium* (Levothyroxine Sodium*) 125 Mcg Tablet, 125 MCG PO BEFORE BREAKFAST, #30 TAB 11/26/18 Bisacodyl (Ducodyl) 5 Mg Tablet.dr, 5 MG PO NEEDED 11/26/18 Ergocalciferol (Vitamin D2) (VITAMIN D2) 50,000 Unit Capsule, 46327 UNIT PO Q SAT, CAP 11/26/18 Lisinopril* (Lisinopril*) 5 Mg Tablet, 5 MG PO DAILY, #30 TAB TAKE NEEDED 11/26/18 Clonidine Hcl* (Clonidine Hcl*) 0.2 Mg Tablet, 0.2 MG PO BID PRN for HTN, TAB 11/26/18 Clonidine Patch (CLONIDINE PATCH) 0.2 Mg/24 Hr Patch, 1 PATCH.WK TD Q7D, #4 PATCH.WK 11/26/18 Hydralazine Hcl* (Apresoline*) 50 Mg Tab, 50 MG PO BID PRN for HTN, #60 TAB TAKE NEEDED 11/26/18 Insulin Glargine,Hum.rec.anlog (Basaglar Kwikpen U-100) 100 Unit/1 Ml Insuln.pen, 40 UNIT SC QHS, EA 11/26/18 Docusate Sodium* (Colace*) 250 Mg Capsule, 250 MG PO BID, #60 CAP 11/26/18 Ferrous Sulfate* (Ferrous Sulfate*) 325 Mg Tabec, 325 MG PO BID, TAB 11/26/18 Medications Current Medications Hydralazine HCl (Apresoline) 10 mg Q6H PRN IV SBP >160 Last administered on 12/01/18at 09:25; Admin Dose 10 MG; Start 11/25/18 at 14:00 Ondansetron HCl (Zofran Inj) 4 mg Q4H PRN IV NAUSEA AND/OR VOMITING Last administered on 11/29/18at 01:10; Admin Dose 4 MG; Start 11/25/18 at 14:00 Insulin Glargine (Lantus) 10 units DAILY@0800 SC Last administered on 12/01/18at 09:49; Admin Dose 10 UNITS; Start 11/26/18 at 08:00 Insulin Aspart (Novolog Insulin Pen) NOVOLOG *MILD* ALGORI... Q4 SC Last administered on 12/01/18at 13:37; Admin Dose 2 UNIT; Start 11/25/18 at 17:00 Albuterol/ Ipratropium (Duoneb) 3 ml Q6H RESP THERAPY PRN HHN SHORTNESS OF BREATH Last administered on 11/26/18at 20:17; Admin Dose 3 ML; Start 11/25/18 at 14:00 Acetaminophen (Tylenol Supp) 650 mg Q4H PRN [place] MILD PAIN(1-3) OR TEMP>38C; Start 11/25/18 at 14:00 Miscellaneous Information 1 ea NOTE XX ; Start 11/25/18 at 14:30 Glucose (Glutose) 15 gm Q15M PRN PO DECREASED GLUCOSE; Start 11/25/18 at 14:30 Glucose (Glutose) 22.5 gm Q15M PRN PO DECREASED GLUCOSE; Start 11/25/18 at 14:30 Dextrose (D50w Syringe) 25 ml Q15M PRN IV DECREASED GLUCOSE; Start 11/25/18 at 14:30 Dextrose (D50w Syringe) 50 ml Q15M PRN IV DECREASED GLUCOSE; Start 11/25/18 at 14:30 Glucagon (Glucagen) 1 mg Q15M PRN IM DECREASED GLUCOSE; Start 11/25/18 at 14:30 Glucose (Glutose) 15 gm Q15M PRN BUCCAL DECREASED GLUCOSE; Start 11/25/18 at 14:30 Budesonide (Pulmicort (Neb)) 0.5 mg BID RESP THERAPY HHN Last administered on 12/01/18at 08:32; Admin Dose 0.5 MG; Start 11/26/18 at 09:00 IV Flush (NS 10 ml) 10 ml PRN PRN IV IV PROTOCOL; Start 11/26/18 at 14:00 Metoprolol Tartrate (Lopressor) 5 mg Q4H PRN IV HR>110 Hold SBP<100 Last administered on 11/29/18at 17:20; Admin Dose 5 MG; Start 11/26/18 at 18:00 Levothyroxine Sodium (Synthroid) 125 mcg DAILY@06 PO Last administered on 12/01/18at 06:08; Admin Dose 125 MCG; Start 11/28/18 at 06:00 Ferric Sodium Gluconate Complex 125 mg/Sodium Chloride 110 ml @ 110 mls/hr DAILY@1300 IVPB Last administered on 12/01/18at 13:30; Admin Dose 110 MLS/HR; Start 11/28/18 at 13:00; Stop 12/02/18 at 13:59 Albumin Human 100 ml @ 100 mls/hr DURING DIALYSIS PRN IV HYPOTENTION DURING HD; Start 11/27/18 at 20:30 Acetaminophen (Tylenol Liquid) 650 mg Q4H PRN PO MILD PAIN(1-3)OR ELEVATED TEMP Last administered on 11/28/18at 18:59; Admin Dose 650 MG; Start 11/28/18 at 16:00 Haloperidol (Haldol) 2 mg Q4 PRN IV AGITATION Last administered on 12/01/18 03:12; Admin Dose 2 MG; Start 11/29/18 at 12:00 Metoprolol Tartrate (Lopressor) 25 mg BID PO Last administered on 12/01/18at 09:26; Admin Dose 25 MG; Start 11/29/18 at 21:00 Quetiapine Fumarate (Seroquel) 25 mg QHS PO Last administered on 11/30/18at 20:24; Admin Dose 25 MG; Start 11/29/18 at 21:00 Pantoprazole (Protonix Tab) 40 mg DAILY@06 PO Last administered on 12/01/18at 06:08; Admin Dose 40 MG; Start 11/30/18 at 06:00 Dextrose/Sodium Chloride 1,000 ml @ 40 mls/hr Q24H IV Last administered on 12/01/18at 13:31; Admin Dose 40 MLS/HR; Start 11/30/18 at 12:30 Assessment/Plan Hospital Course (Demo Recall) 1. Hypotension, borderline, not on pressure support at this time - stable now - con't to follow - HD now, tolerated HD well 2. Atrial fibrillation, primarily rate controlled off of antihypertensives at this time - not anti-coag now r/o GIB and decreased H/H - stable now 3. Anemia, worsening with guaiac positive stool consistent with gastrointestinal bleed - blood Rx to consider 4. Diabetes mellitus. 5. Acute on chronic renal failure, being initiated on hemodialysis 6. Altered mental state- unchanged 7. Diastolic congestive heart failure due to a preserved EF by most recent echo and findings by chest x-ray - remove fluid with HD. 8. History of coronary artery disease, nonobstructive by outside hospital catheterization - no intervention planned now. 9. Shortness of breath with hypothyroidism. 10. Diabetes mellitus - on meds, keep euglycemic ALFRED PEPE MD Dec 01, 2018 14:49
[2018-12-01] MEDS: QUETIAPINE 25 MG TAB PO SCH (20:42)
[2018-12-02] VITALS (18 sets, daily range): BP systolic 122–201; BP diastolic 60–84; PULSE 82–113; RESP 18–88
[2018-12-02] MEDS: INSULIN ASPART [NOVOLOG] 3 ML PEN SC SCH ×6 (00:54→20:51)
[2018-12-02] MEDS: hydrALAzine 20 MG INJ IV PRN ×3 (05:11→22:20)
[2018-12-02] MEDS: PANTOPRAZOLE (EC) 40 MG TAB PO SCH (05:40)
[2018-12-02] MEDS: LEVOTHYROXINE 125 MCG TAB PO SCH (05:40)
[2018-12-02] MEDS: BUDESONIDE (NEB) 0.5MG/2ML AMP HHN SCH ×2 (08:44→20:28)
--- NOTE | 2018-12-02 08:51 | CONS ---
Assessment/Plan Assessment/Plan Assessment/Plan (Daily) Assessment and recommendations; 1. Patient with history of dementia admitted with worsening mental status due to development of acute renal failure which is now hemodialysis dependent. There is interval resolution of metabolic acidosis. 2. History of hypertension, diabetes, hypothyroidism, chronic atrial relation. 3. History of colon cancer. Status post bowel resection in the past. 4. Patient still exhibiting occasional agitation. Continue current supportive care. Add metoprolol 25 mg twice daily. Patient possibly may require a G-tube placement. Prognosis remains poor. Consultation Date/Type/Reason Admit Date/Time Nov 25, 2018 at 13:18 Initial Consult Date 11/26/18 Type of Consult Pulmonary/critical care Patient is a 78-year-old lady who was admitted for altered mental status. Further workup has revealed significant anemia with worsening chronic renal failure with severe elevation in serum creatinine. Since admission however patient mental status has improved significantly to the point with the patient always communicative and awake and alert. Patient also is mildly hypotensive likely due to anemia. She denies any shortness of breath any chest pain. Any nausea vomiting. Past medical history; 1. Chronic renal insufficiency, 2. CHF. 3. Hypertension. 4. History of colon cancer. Status post partial colectomy. 5. Chronic atrial fibrillation. 6. Apparently chronic anemia. Medications; reviewed. Allergies; none. Social history; patient never smoked. Family history; noncontributory. 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 Review of systems; denies any chest pain, shortness of breath has improved. Denies any abdominal pain, nausea vomiting. General exam; elderly female, awake. Currently no distress. Requesting Provider: GENNY SULLIVAN Date/Time of Note DATE: 12/02/18 TIME: 08:48 24 HR Interval Summary Free Text/Dictation Patient's condition is tenuous at best. He still gets agitated off and on requiring wrist restraints. General exam; elderly woman, awake, remains noncommunicative. Currently in no distress. Exam/Review of Systems Exam Vitals Vital Signs Date Temp Pulse Resp B/P (MAP) Pulse Ox O2 O2 Flow FiO2 Time Delivery Rate 12/02/18 93 5.0 08:45 12/02/18 98.6 88 18 201/84 Nasal 08:05 (123) Cannula Intake and Output 12/01/18 12/01/1819 1515:00 23:00 07:00 IntakeIntake Total 510 ml OutputOutput Total 2525 ml BalanceBalance -2015 ml Exam H EENT exam; supple neck, no JVD. No lymphadenopathy. Midline trachea. No thyromegaly. Patient has fair dentition. There is right subconjunctival hematoma present. Chest exam; diminished breath sounds bilaterally. S1-S2 audible, no murmurs. Irregular rhythm. Abdomen exam; soft, nontender. No organomegaly. Bowel sounds audible. Extremity exam; trace edema with multiple patchy ecchymosis. DRYING ROOM ATTENDANT exam; patient awake but remains noncommunicative. Results Result Diagram: 12/02/18 0741 12/01/18 1543 Results 24hrs Laboratory Tests Test 12/01/18 09:48 12/01/18 13:09 12/01/18 15:43 12/01/18 17:20 Bedside Glucose 148 191 144 White Blood Count 9.9 # Red Blood Count 3.24 L Hemoglobin 9.5 L Hematocrit 31.2 L Mean Corpuscular 96.3 Volume Mean Corpuscular 29.3 Hemoglobin Mean Corpuscular 30.4 L Hemoglobin Concent Red Cell 15.7 H Distribution Width Platelet Count 124 L Mean Platelet Volume 11.7 H Immature 5.400 H Granulocytes % Neutrophils % Segmented 81 H Neutrophils % (Manual) Band Neutrophils % 5 H (Manual) Lymphocytes % Lymphocytes % 2 L (Manual) Monocytes % Monocytes % (Manual) 8 Eosinophils % Basophils % Metamyelocytes % 4 H (manual) Nucleated Red Blood 0.0 Cells % Immature 0.530 H Granulocytes # Neutrophils # Neutrophils # 8.1 H (Manual) Band Neutrophils # 0.4 Lymphocytes (Manual) 0.1 L Lymphocytes # Monocytes # Monocytes # (Manual) 0.7 Eosinophils # Basophils # Metamyelocytes # 0.3 H Nucleated Red Blood Cells # Platelet Estimate DECREASED Polychromasia 3+ Poikilocytosis 1+ Anisocytosis 1+ Microcytosis 1+ Sodium Level 142 Potassium Level 4.4 Chloride Level 100 Carbon Dioxide Level 23 Anion Gap 19 H Blood Urea Nitrogen 54 H Creatinine 6.71 H Est Glomerular Filtrat Rate mL/min Glucose Level 165 Calcium Level 8.7 Phosphorus Level 7.9 #H Magnesium Level 2.7 H Test 12/01/18 20:38 12/02/18 00:49 12/02/18 04:53 12/02/18 07:41 Bedside Glucose 127 157 139 White Blood Count 8.4 Red Blood Count 3.02 L Hemoglobin 8.8 L Hematocrit 28.6 L Mean Corpuscular 94.7 Volume Mean Corpuscular 29.1 Hemoglobin Mean Corpuscular 30.8 L Hemoglobin Concent Red Cell 16.0 H Distribution Width Platelet Count 121 L Mean Platelet Volume 11.7 H Immature 3.900 H Granulocytes % Neutrophils % 76.8 Lymphocytes % 6.0 L Monocytes % 11.9 H Eosinophils % 1.2 Basophils % 0.2 Nucleated Red Blood 0.0 Cells % Immature 0.330 H Granulocytes # Neutrophils # 6.5 Lymphocytes # 0.5 L Monocytes # 1.0 H Eosinophils # 0.1 Basophils # 0.0 Nucleated Red Blood 0.0 Cells # Test 12/02/18 08:36 Bedside Glucose 152 Medications Medication Current Medications Hydralazine HCl (Apresoline) 10 mg Q6H PRN IV SBP >160 Last administered on 12/02/18at 05:11; Admin Dose 10 MG; Start 11/25/18 at 14:00 Ondansetron HCl (Zofran Inj) 4 mg Q4H PRN IV NAUSEA AND/OR VOMITING Last administered on 11/29/18at 01:10; Admin Dose 4 MG; Start 11/25/18 at 14:00 Insulin Glargine (Lantus) 10 units DAILY@0800 SC Last administered on 12/01/18at 09:49; Admin Dose 10 UNITS; Start 11/26/18 at 08:00 Insulin Aspart (Novolog Insulin Pen) NOVOLOG *MILD* ALGORI... Q4 SC Last administered on 12/02/18at 00:54; Admin Dose 1 UNIT; Start 11/25/18 at 17:00 Albuterol/ Ipratropium (Duoneb) 3 ml Q6H RESP THERAPY PRN HHN SHORTNESS OF BREATH Last administered on 11/26/18at 20:17; Admin Dose 3 ML; Start 11/25/18 at 14:00 Acetaminophen (Tylenol Supp) 650 mg Q4H PRN [place] MILD PAIN(1-3) OR TEMP>38C; Start 11/25/18 at 14:00 Miscellaneous Information 1 ea NOTE XX ; Start 11/25/18 at 14:30 Glucose (Glutose) 15 gm Q15M PRN PO DECREASED GLUCOSE; Start 11/25/18 at 14:30 Glucose (Glutose) 22.5 gm Q15M PRN PO DECREASED GLUCOSE; Start 11/25/18 at 14:30 Dextrose (D50w Syringe) 25 ml Q15M PRN IV DECREASED GLUCOSE; Start 11/25/18 at 14:30 Dextrose (D50w Syringe) 50 ml Q15M PRN IV DECREASED GLUCOSE; Start 11/25/18 at 14:30 Glucagon (Glucagen) 1 mg Q15M PRN IM DECREASED GLUCOSE; Start 11/25/18 at 14:30 Glucose (Glutose) 15 gm Q15M PRN BUCCAL DECREASED GLUCOSE; Start 11/25/18 at 14:30 Budesonide (Pulmicort (Neb)) 0.5 mg BID RESP THERAPY HHN Last administered on 12/02/18at 08:44; Admin Dose 0.5 MG; Start 11/26/18 at 09:00 IV Flush (NS 10 ml) 10 ml PRN PRN IV IV PROTOCOL; Start 11/26/18 at 14:00 Metoprolol Tartrate (Lopressor) 5 mg Q4H PRN IV HR>110 Hold SBP<100 Last admi nistered on 11/29/18at 17:20; Admin Dose 5 MG; Start 11/26/18 at 18:00 Levothyroxine Sodium (Synthroid) 125 mcg DAILY@06 PO Last administered on 12/01/18at 06:08; Admin Dose 125 MCG; Start 11/28/18 at 06:00 Ferric Sodium Gluconate Complex 125 mg/Sodium Chloride 110 ml @ 110 mls/hr DAILY@1300 IVPB Last administered on 12/01/18at 13:30; Admin Dose 110 MLS/HR; Start 11/28/18 at 13:00; Stop 12/02/18 at 13:59 Albumin Human 100 ml @ 100 mls/hr DURING DIALYSIS PRN IV HYPOTENTION DURING HD; Start 11/27/18 at 20:30 Acetaminophen (Tylenol Liquid) 650 mg Q4H PRN PO MILD PAIN(1-3)OR ELEVATED TEMP Last administered on 11/28/18at 18:59; Admin Dose 650 MG; Start 11/28/18 at 16:00 Haloperidol (Haldol) 2 mg Q4 PRN IV AGITATION Last administered on 12/01/18 21:52; Admin Dose 2 MG; Start 11/29/18 at 12:00 Metoprolol Tartrate (Lopressor) 25 mg BID PO Last administered on 12/01/18 09:26; Admin Dose 25 MG; Start 11/29/18 at 21:00 Quetiapine Fumarate (Seroquel) 25 mg QHS PO Last administered on 11/30/18 20:24; Admin Dose 25 MG; Start 11/29/18 at 21:00 Pantoprazole (Protonix Tab) 40 mg DAILY@06 PO Last administered on 12/01/18 06:08; Admin Dose 40 MG; Start 11/30/18 at 06:00 Dextrose/Sodium Chloride 1,000 ml @ 40 mls/hr Q24H IV Last administered on 12/01/18at 13:31; Admin Dose 40 MLS/HR; Start 11/30/18 at 12:30 PERNELL BYRD Dec 02, 2018 08:51
[2018-12-02] MEDS: METOPROLOL 25 MG TAB PO SCH ×2 (09:23→20:53)
[2018-12-02] MEDS: INSULIN GLARGINE [LANTus] (100 UNITS/ML) SYG SC SCH (09:28)
--- NOTE | 2018-12-02 11:23 | CONS ---
Consult Date/Type/Reason Admit Date/Time Nov 25, 2018 at 13:18 Initial Consult Date 11/26/18 Requesting Provider: GENNY SULLIVAN Date/Time of Note DATE: 12/02/18 TIME: 11:22 Subjective NO acute events - BP labile - better overall - had HD day prior - tolerated well. Per nurse: confuised, no F/C/N/V - agitated when awake + some urine output Objective Vitals Vital Signs Date Temp Pulse Resp B/P (MAP) Pulse Ox O2 O2 Flow FiO2 Time Delivery Rate 12/02/18 87 137/84 09:31 (101) 12/02/18 22 93 Nasal 5.0 08:46 Cannula 12/02/18 98.6 08:05 Intake and Output 12/01/18 12/01/18 12/02/18 1515:00 23:00 07:00 IntakeIntake Total 510 ml OutputOutput Total 2525 ml BalanceBalance -2015 ml Exam General: WN/WD/NAD, AOx 0 confused HEENT: Unicetric/atraumatic/EOMI (does not follow commands) NECK: JVD elevated, no thyromegaly Lymph: no lymphadenopathy HEART: regular with no S3, II/ systolic murmur at apex, PMI L LUNGS: Coarse sounds ABD: soft, NT, ND, +BS : Intact Neuro: non focal SKIN: chronic changes EXT: trace edema, restrains Results/Medications Result Diagram: 12/02/18 0741 12/02/18 0741 Results 24 hrs Laboratory Tests Test 12/01/18 13:09 12/01/18 15:43 12/01/18 17:20 12/01/18 20:38 Bedside Glucose 191 144 127 White Blood Count 9.9 # Red Blood Count 3.24 L Hemoglobin 9.5 L Hematocrit 31.2 L Mean Corpuscular 96.3 Volume Mean Corpuscular 29.3 Hemoglobin Mean Corpuscular 30.4 L Hemoglobin Concent Red Cell 15.7 H Distribution Width Platelet Count 124 L Mean Platelet Volume 11.7 H Immature 5.400 H Granulocytes % Neutrophils % Segmented 81 H Neutrophils % (Manual) Band Neutrophils % 5 H (Manual) Lymphocytes % Lymphocytes % 2 L (Manual) Monocytes % Monocytes % (Manual) 8 Eosinophils % Basophils % Metamyelocytes % 4 H (manual) Nucleated Red Blood 0.0 Cells % Immature 0.530 H Granulocytes # Neutrophils # Neutrophils # 8.1 H (Manual) Band Neutrophils # 0.4 Lymphocytes (Manual) 0.1 L Lymphocytes # Monocytes # Monocytes # (Manual) 0.7 Eosinophils # Basophils # Metamyelocytes # 0.3 H Nucleated Red Blood Cells # Platelet Estimate DECREASED Polychromasia 3+ Poikilocytosis 1+ Anisocytosis 1+ Microcytosis 1+ Sodium Level 142 Potassium Level 4.4 Chloride Level 100 Carbon Dioxide Level 23 Anion Gap 19 H Blood Urea Nitrogen 54 H Creatinine 6.71 H Est Glomerular Filtrat Rate mL/min Glucose Level 165 Calcium Level 8.7 Phosphorus Level 7.9 #H Magnesium Level 2.7 H Test 12/02/18 00:49 12/02/18 04:53 12/02/18 07:41 12/02/18 08:36 Bedside Glucose 157 139 152 White Blood Count 8.4 Red Blood Count 3.02 L Hemoglobin 8.8 L Hematocrit 28.6 L Mean Corpuscular 94.7 Volume Mean Corpuscular 29.1 Hemoglobin Mean Corpuscular 30.8 L Hemoglobin Concent Red Cell 16.0 H Distribution Width Platelet Count 121 L Mean Platelet Volume 11.7 H Immature 3.900 H Granulocytes % Neutrophils % 76.8 Segmented 73 Neutrophils % (Manual) Band Neutrophils % 5 H (Manual) Lymphocytes % 6.0 L Lymphocytes % 7 L (Manual) Monocytes % 11.9 H Monocytes % (Manual) 9 Eosinophils % 1.2 Eosinophils % 3 (Manual) Basophils % 0.2 Metamyelocytes % 2 H (manual) Myelocytes % 1 H (Manual) Nucleated Red Blood 0.0 Cells % Immature 0.330 H Granulocytes # Neutrophils # 6.5 Neutrophils # 6.2 (Manual) Band Neutrophils # 0.4 Lymphocytes (Manual) 0.5 L Lymphocytes # 0.5 L Monocytes # 1.0 H Monocytes # (Manual) 0.7 Eosinophils # 0.1 Basophils # 0.0 Metamyelocytes # 0.1 H Myelocytes # 0.0 Nucleated Red Blood 0.0 Cells # Platelet Estimate NORMAL Giant Platelets 4 H Polychromasia 1+ Anisocytosis 1+ Microcytosis 1+ Ovalocytes 1+ Sodium Level 141 Potassium Level 4.2 Chloride Level 103 Carbon Dioxide Level 22 Anion Gap 16 H Blood Urea Nitrogen 38 #H Creatinine 5.38 H Est Glomerular Filtrat Rate mL/min Glucose Level 149 Calcium Level 8.7 Phosphorus Level 6.1 H Magnesium Level 2.5 Home Meds Reported Medications Alprazolam* (Alprazolam*) 0.25 Mg Tablet, 0.25 MG PO NEEDED PRN for ANXIETY, TAB 11/26/18 Magnesium Oxide* (Mag-Oxide*) 400 Mg Tablet, 400 MG PO BID, TAB 11/26/18 Losartan Potassium* (Losartan Potassium*) 50 Mg Tablet, 50 MG PO BID PRN for NEEDED, TAB 11/26/18 Atorvastatin Calcium* (Atorvastatin Calcium*) 20 Mg Tablet, 20 MG PO QHS, #30 TAB 11/26/18 Potassium Chloride* (Potassium Chloride*) 8 Meq Capsule.er, 8 MEQ PO DAILY, CAP 11/26/18 Dronedarone Hydrochloride* (Multaq*) 400 Mg Tablet, 400 MG PO BID, TAB 11/26/18 Insulin Aspart (Novolog) 100 Unit/1 Ml Cartridge, 8 UNIT SQ AC BREAKFAST DINNER 11/26/18 Clopidogrel Bisulfate* (Clopidogrel Bisulfate*) 75 Mg Tablet, 75 MG PO DAILY, #30 TAB 11/26/18 Carvedilol* (Carvedilol*) 3.125 Mg Tablet, 3.125 MG PO BID, #60 TAB 11/26/18 Gabapentin* (Gabapentin*) 300 Mg Capsule, 300 MG PO DAILY, #60 CAP NEEDED 11/26/18 Aspirin* (Aspirin* EC) 81 Mg Tablet.dr, 81 MG PO DAILY, TAB 11/26/18 Amlodipine Besylate* (Amlodipine Besylate*) 10 Mg Tablet, 10 MG PO DAILY, #30 TAB TAKE NEEDED 11/26/18 Famotidine* (Famotidine*) 20 Mg Tablet, 20 MG PO BID, #30 TAB 11/26/18 Furosemide* (Furosemide*) 40 Mg Tablet, 40 MG PO BID, TAB 11/26/18 Levothyroxine Sodium* (Levothyroxine Sodium*) 125 Mcg Tablet, 125 MCG PO BEFORE BREAKFAST, #30 TAB 11/26/18 Bisacodyl (Ducodyl) 5 Mg Tablet.dr, 5 MG PO NEEDED 11/26/18 Ergocalciferol (Vitamin D2) (VITAMIN D2) 50,000 Unit Capsule, 31741 UNIT PO Q SAT, CAP 11/26/18 Lisinopril* (Lisinopril*) 5 Mg Tablet, 5 MG PO DAILY, #30 TAB TAKE NEEDED 11/26/18 Clonidine Hcl* (Clonidine Hcl*) 0.2 Mg Tablet, 0.2 MG PO BID PRN for HTN, TAB 11/26/18 Clonidine Patch (CLONIDINE PATCH) 0.2 Mg/24 Hr Patch, 1 PATCH.WK TD Q7D, #4 PATCH.WK 11/26/18 Hydralazine Hcl* (Apresoline*) 50 Mg Tab, 50 MG PO BID PRN for HTN, #60 TAB TAKE NEEDED 11/26/18 Insulin Glargine,Hum.rec.anlog (Basaglar Kwikpen U-100) 100 Unit/1 Ml Insu ln.pen, 40 UNIT SC QHS, EA 11/26/18 Docusate Sodium* (Colace*) 250 Mg Capsule, 250 MG PO BID, #60 CAP 11/26/18 Ferrous Sulfate* (Ferrous Sulfate*) 325 Mg Tabec, 325 MG PO BID, TAB 11/26/18 Medications Current Medications Hydralazine HCl (Apresoline) 10 mg Q6H PRN IV SBP >160 Last administered on 12/02/18at 05:11; Admin Dose 10 MG; Start 11/25/18 at 14:00 Ondansetron HCl (Zofran Inj) 4 mg Q4H PRN IV NAUSEA AND/OR VOMITING Last administered on 11/29/18at 01:10; Admin Dose 4 MG; Start 11/25/18 at 14:00 Insulin Glargine (Lantus) 10 units DAILY@0800 SC Last administered on 12/02/18at 09:28; Admin Dose 10 UNITS; Start 11/26/18 at 08:00 Insulin Aspart (Novolog Insulin Pen) NOVOLOG *MILD* ALGORI... Q4 SC Last adm inistered on 12/02/18at 09:29; Admin Dose 1 UNIT; Start 11/25/18 at 17:00 Albuterol/ Ipratropium (Duoneb) 3 ml Q6H RESP THERAPY PRN HHN SHORTNESS OF BREATH Last administered on 11/26/18at 20:17; Admin Dose 3 ML; Start 11/25/18 at 14:00 Acetaminophen (Tylenol Supp) 650 mg Q4H PRN [place] MILD PAIN(1-3) OR TEMP>38C Last administered on 12/02/18at 09:25; Admin Dose 650 MG; Start 11/25/18 at 14:00 Miscellaneous Information 1 ea NOTE XX ; Start 11/25/18 at 14:30 Glucose (Glutose) 15 gm Q15M PRN PO DECREASED GLUCOSE; Start 11/25/18 at 14:30 Glucose (Glutose) 22.5 gm Q15M PRN PO DECREASED GLUCOSE; Start 11/25/18 at 14:30 Dextrose (D50w Syringe) 25 ml Q15M PRN IV DECREASED GLUCOSE; Start 11/25/18 at 14:30 Dextrose (D50w Syringe) 50 ml Q15M PRN IV DECREASED GLUCOSE; Start 11/25/18 at 14:30 Glucagon (Glucagen) 1 mg Q15M PRN IM DECREASED GLUCOSE; Start 11/25/18 at 14:30 Glucose (Glutose) 15 gm Q15M PRN BUCCAL DECREASED GLUCOSE; Start 11/25/18 at 14:30 Budesonide (Pulmicort (Neb)) 0.5 mg BID RESP THERAPY HHN Last administered on 12/02/18at 08:44; Admin Dose 0.5 MG; Start 11/26/18 at 09:00 IV Flush (NS 10 ml) 10 ml PRN PRN IV IV PROTOCOL; Start 11/26/18 at 14:00 Metoprolol Tartrate (Lopressor) 5 mg Q4H PRN IV HR>110 Hold SBP<100 Last administered on 11/29/18at 17:20; Admin Dose 5 MG; Start 11/26/18 at 18:00 Levothyroxine Sodium (Synthroid) 125 mcg DAILY@06 PO Last administered on 12/01/18at 06:08; Admin Dose 125 MCG; Start 11/28/18 at 06:00 Ferric Sodium Gluconate Complex 125 mg/Sodium Chloride 110 ml @ 110 mls/hr DAILY@1300 IVPB Last administered on 12/01/18at 13:30; Admin Dose 110 MLS/HR; Start 11/28/18 at 13:00; Stop 12/02/18 at 13:59 Albumin Human 100 ml @ 100 mls/hr DURING DIALYSIS PRN IV HYPOTENTION DURING HD; Start 11/27/18 at 20:30 Acetaminophen (Tylenol Liquid) 650 mg Q4H PRN PO MILD PAIN(1-3)OR ELEVATED TEMP Last administered on 11/28/18at 18:59; Admin Dose 650 MG; Start 11/28/18 at 16:00 Haloperidol (Haldol) 2 mg Q4 PRN IV AGITATION Last administered on 12/01/18at 21:52; Admin Dose 2 MG; Start 11/29/18 at 12:00 Quetiapine Fumarate (Seroquel) 25 mg QHS PO Last administered on 11/30/18 20:24; Admin Dose 25 MG; Start 11/29/18 at 21:00 Pantoprazole (Protonix Tab) 40 mg DAILY@06 PO Last administered on 12/01/18 06:08; Admin Dose 40 MG; Start 11/30/18 at 06:00 Dextrose/Sodium Chloride 1,000 ml @ 40 mls/hr Q24H IV Last administered on 12/01/18 13:31; Admin Dose 40 MLS/HR; Start 11/30/18 at 12:30 Metoprolol Tartrate (Lopressor) 25 mg BID PO Last administered on 12/02/18at 09:23; Admin Dose 25 MG; Start 12/02/18 at 09:00 Assessment/Plan Hospital Course (Demo Recall) 1. Hypotension, borderline, not on pressure support at this time - stable now - con't to follow - HD now, tolerated HD well - labile - luis Rx with renal team 2. Atrial fibrillation, primarily rate controlled off of antihypertensives at this time - not anti-coag now r/o GIB and decreased H/H - stable now - rate controled 3. Anemia, worsening with guaiac positive stool consistent with gastrointestinal bleed - blood Rx to consider 4. Diabetes mellitus. 5. Acute on chronic renal failure, being initiated on hemodialysis - HD yesterday 6. Altered mental state- unchanged 7. Diastolic congestive heart failure due to a preserved EF by most recent echo and findings by chest x-ray - remove fluid with HD. 8. History of coronary artery disease, nonobstructive by outside hospital catheterization - no intervention planned now. 9. Shortness of breath with hypothyroidism. 10. Diabetes mellitus - on meds, keep euglycemic ALFRED PEPE MD Dec 02, 2018 11:23
[2018-12-02] MEDS: DEXTROSE 5%-0.45% NACL 1,000 ML IV SCH ×2 (12:30→21:55)
--- NOTE | 2018-12-02 12:32 | PN ---
Date/Time of Note Date/Time of Note DATE: 12/02/18 TIME: 12:32 Assessment/Plan VTE Prophylaxis Risk score (from Ns)>0 risk: 13 SCD applied (from Ns): Yes Pharmacological prophylaxis: LMWH Lines/Catheters IV Catheter Type (from [facility]): Trialysis cath Urinary Cath still in place: Yes Reason Cath still needed: skin wounds contaminated by urine Assessment/Plan Hospital Course 1. Oliguric acute kidney injury on top of chronic kidney disease stage IV with previous baseline creatinine around 2.0 mg/dL. Etiology of acute kidney injury was secondary to acute tubular necrosis due to hemodynamic sepsis. The patient has been initiated on dialysis, status post 3 sessions. Plan for hemodialysis again tomorrow. Monitor for any signs of renal recovery. 2. Anemia, etiology is multifactorial secondary to chronic kidney disease, iron deficiency, questionable GI bleed. Patient is currently on IV iron on Epogen. The patient's hemoglobin and hematocrit levels have been improving. Continue to monitor. Continue PPI. Follow up with GI. 3. Mineral bone disorder. Monitor calcium and phosphorus levels. 4. Encephalopathy. Etiology is toxic metabolic, possibly uremic. Continue to monitor. 5. Coronary artery disease. Continue medical management. 6. Diabetes. Continue current insulin regimen. 7. Hypothyroidism. Continue Synthroid. 8. History of asthma. Continue current treatment plan. 9. History of atrial fibrillation. 10. Thrombocytopenia. Continue to monitor. 11. Hypertension. Blood pressure controlled. Result Diagram: 12/02/18 0741 12/02/18 0741 Results 24hrs Laboratory Tests Test 12/01/18 13:09 12/01/18 15:43 12/01/18 17:20 12/01/18 20:38 Bedside Glucose 191 144 127 White Blood Count 9.9 # Red Blood Count 3.24 L Hemoglobin 9.5 L Hematocrit 31.2 L Mean Corpuscular 96.3 Volume Mean Corpuscular 29.3 Hemoglobin Mean Corpuscular 30.4 L Hemoglobin Concent Red Cell 15.7 H Distribution Width Platelet Count 124 L Mean Platelet Volume 11.7 H Immature 5.400 H Granulocytes % Neutrophils % Segmented 81 H Neutrophils % (Manual) Band Neutrophils % 5 H (Manual) Lymphocytes % Lymphocytes % 2 L (Manual) Monocytes % Monocytes % (Manual) 8 Eosinophils % Basophils % Metamyelocytes % 4 H (manual) Nucleated Red Blood 0.0 Cells % Immature 0.530 H Granulocytes # Neutrophils # Neutrophils # 8.1 H (Manual) Band Neutrophils # 0.4 Lymphocytes (Manual) 0.1 L Lymphocytes # Monocytes # Monocytes # (Manual) 0.7 Eosinophils # Basophils # Metamyelocytes # 0.3 H Nucleated Red Blood Cells # Platelet Estimate DECREASED Polychromasia 3+ Poikilocytosis 1+ Anisocytosis 1+ Microcytosis 1+ Sodium Level 142 Potassium Level 4.4 Chloride Level 100 Carbon Dioxide Level 23 Anion Gap 19 H Blood Urea Nitrogen 54 H Creatinine 6.71 H Est Glomerular Filtrat Rate mL/min Glucose Level 165 Calcium Level 8.7 Phosphorus Level 7.9 #H Magnesium Level 2.7 H Test 12/02/18 00:49 12/02/18 04:53 12/02/18 07:41 12/02/18 08:36 Bedside Glucose 157 139 152 White Blood Count 8.4 Red Blood Count 3.02 L Hemoglobin 8.8 L Hematocrit 28.6 L Mean Corpuscular 94.7 Volume Mean Corpuscular 29.1 Hemoglobin Mean Corpuscular 30.8 L Hemoglobin Concent Red Cell 16.0 H Distribution Width Platelet Count 121 L Mean Platelet Volume 11.7 H Immature 3.900 H Granulocytes % Neutrophils % 76.8 Segmented 73 Neutrophils % (Manual) Band Neutrophils % 5 H (Manual) Lymphocytes % 6.0 L Lymphocytes % 7 L (Manual) Monocytes % 11.9 H Monocytes % (Manual) 9 Eosinophils % 1.2 Eosinophils % 3 (Manual) Basophils % 0.2 Metamyelocytes % 2 H (manual) Myelocytes % 1 H (Manual) Nucleated Red Blood 0.0 Cells % Immature 0.330 H Granulocytes # Neutrophils # 6.5 Neutrophils # 6.2 (Manual) Band Neutrophils # 0.4 Lymphocytes (Manual) 0.5 L Lymphocytes # 0.5 L Monocytes # 1.0 H Monocytes # (Manual) 0.7 Eosinophils # 0.1 Basophils # 0.0 Metamyelocytes # 0.1 H Myelocytes # 0.0 Nucleated Red Blood 0.0 Cells # Platelet Estimate NORMAL Giant Platelets 4 H Polychromasia 1+ Anisocytosis 1+ Microcytosis 1+ Ovalocytes 1+ Sodium Level 141 Potassium Level 4.2 Chloride Level 103 Carbon Dioxide Level 22 Anion Gap 16 H Blood Urea Nitrogen 38 #H Creatinine 5.38 H Est Glomerular Filtrat Rate mL/min Glucose Level 149 Calcium Level 8.7 Phosphorus Level 6.1 H Magnesium Level 2.5 Subjective 24 Hr Interval Summary Free Text/Dictation Patient has no complaints Exam/Review of Systems Exam Vitals Vital Signs Date Temp Pulse Resp B/P (MAP) Pulse Ox O2 O2 Flow FiO2 Time Delivery Rate 12/02/18 98.2 88 88 177/78 96 Room Air 12:00 (111) 12/02/18 5.0 08:46 Intake and Output 12/01/18 12/01/18 12/02/18 1515:00 23:00 07:00 IntakeIntake Total 510 ml OutputOutput Total 2525 ml BalanceBalance -2015 ml Constitutional: well developed Head: normocephalic, atraumatic Neck: supple Respiratory: diminished breath sounds Cardiovascular: regular rate and rhythm Gastrointestinal: soft, non-tender Extremities: normal pulses Results Results 24hrs Laboratory Tests Test 12/01/18 13:09 12/01/18 15:43 12/01/18 17:20 12/01/18 20:38 Bedside Glucose 191 144 127 White Blood Count 9.9 # Red Blood Count 3.24 L Hemoglobin 9.5 L Hematocrit 31.2 L Mean Corpuscular 96.3 Volume Mean Corpuscular 29.3 Hemoglobin Mean Corpuscular 30.4 L Hemoglobin Concent Red Cell 15.7 H Distribution Width Platelet Count 124 L Mean Platelet Volume 11.7 H Immature 5.400 H Granulocytes % Neutrophils % Segmented 81 H Neutrophils % (Manual) Band Neutrophils % 5 H (Manual) Lymphocytes % Lymphocytes % 2 L (Manual) Monocytes % Monocytes % (Manual) 8 Eosinophils % Basophils % Metamyelocytes % 4 H (manual) Nucleated Red Blood 0.0 Cells % Immature 0.530 H Granulocytes # Neutrophils # Neutrophils # 8.1 H (Manual) Band Neutrophils # 0.4 Lymphocytes (Manual) 0.1 L Lymphocytes # Monocytes # Monocytes # (Manual) 0.7 Eosinophils # Basophils # Metamyelocytes # 0.3 H Nucleated Red Blood Cells # Platelet Estimate DECREASED Polychromasia 3+ Poikilocytosis 1+ Anisocytosis 1+ Microcytosis 1+ Sodium Level 142 Potassium Level 4.4 Chloride Level 100 Carbon Dioxide Level 23 Anion Gap 19 H Blood Urea Nitrogen 54 H Creatinine 6.71 H Est Glomerular Filtrat Rate mL/min Glucose Level 165 Calcium Level 8.7 Phosphorus Level 7.9 #H Magnesium Level 2.7 H Test 12/02/18 00:49 12/02/18 04:53 12/02/18 07:41 12/02/18 08:36 Bedside Glucose 157 139 152 White Blood Count 8.4 Red Blood Count 3.02 L Hemoglobin 8.8 L Hematocrit 28.6 L Mean Corpuscular 94.7 Volume Mean Corpuscular 29.1 Hemoglobin Mean Corpuscular 30.8 L Hemoglobin Concent Red Cell 16.0 H Distribution Width Platelet Count 121 L Mean Platelet Volume 11.7 H Immature 3.900 H Granulocytes % Neutrophils % 76.8 Segmented 73 Neutrophils % (Manual) Band Neutrophils % 5 H (Manual) Lymphocytes % 6.0 L Lymphocytes % 7 L (Manual) Monocytes % 11.9 H Monocytes % (Manual) 9 Eosinophils % 1.2 Eosinophils % 3 (Manual) Basophils % 0.2 Metamyelocytes % 2 H (manual) Myelocytes % 1 H (Manual) Nucleated Red Blood 0.0 Cells % Immature 0.330 H Granulocytes # Neutrophils # 6.5 Neutrophils # 6.2 (Manual) Band Neutrophils # 0.4 Lymphocytes (Manual) 0.5 L Lymphocytes # 0.5 L Monocytes # 1.0 H Monocytes # (Manual) 0.7 Eosinophils # 0.1 Basophils # 0.0 Metamyelocytes # 0.1 H Myelocytes # 0.0 Nucleated Red Blood 0.0 Cells # Platelet Estimate NORMAL Giant Platelets 4 H Polychromasia 1+ Anisocytosis 1+ Microcytosis 1+ Ovalocytes 1+ Sodium Level 141 Potassium Level 4.2 Chloride Level 103 Carbon Dioxide Level 22 Anion Gap 16 H Blood Urea Nitrogen 38 #H Creatinine 5.38 H Est Glomerular Filtrat Rate mL/min Glucose Level 149 Calcium Level 8.7 Phosphorus Level 6.1 H Magnesium Level 2.5 Medications Medication Current Medications Hydralazine HCl (Apresoline) 10 mg Q6H PRN IV SBP >160 Last administered on 12/02/18at 05:11; Admin Dose 10 MG; Start 11/25/18 at 14:00 Ondansetron HCl (Zofran Inj) 4 mg Q4H PRN IV NAUSEA AND/OR VOMITING Last administered on 11/29/18at 01:10; Admin Dose 4 MG; Start 11/25/18 at 14:00 Insulin Glargine (Lantus) 10 units DAILY@0800 SC Last administered on 12/02/18at 09:28; Admin Dose 10 UNITS; Start 11/26/18 at 08:00 Insulin Aspart (Novolog Insulin Pen) NOVOLOG *MILD* ALGORI... Q4 SC Last administered on 12/02/18at 09:29; Admin Dose 1 UNIT; Start 11/25/18 at 17:00 Albuterol/ Ipratropium (Duoneb) 3 ml Q6H RESP THERAPY PRN HHN SHORTNESS OF BREATH Last administered on 11/26/18at 20:17; Admin Dose 3 ML; Start 11/25/18 at 14:00 Acetaminophen (Tylenol Supp) 650 mg Q4H PRN [place] MILD PAIN(1-3) OR TEMP>38C Last administered on 12/02/18at 09:25; Admin Dose 650 MG; Start 11/25/18 at 14:00 Miscellaneous Information 1 ea NOTE XX ; Start 11/25/18 at 14:30 Glucose (Glutose) 15 gm Q15M PRN PO DECREASED GLUCOSE; Start 11/25/18 at 14:30 Glucose (Glutose) 22.5 gm Q15M PRN PO DECREASED GLUCOSE; Start 11/25/18 at 14:30 Dextrose (D50w Syringe) 25 ml Q15M PRN IV DECREASED GLUCOSE; Start 11/25/18 at 14:30 Dextrose (D50w Syringe) 50 ml Q15M PRN IV DECREASED GLUCOSE; Start 11/25/18 at 14:30 Glucagon (Glucagen) 1 mg Q15M PRN IM DECREASED GLUCOSE; Start 11/25/18 at 14:30 Glucose (Glutose) 15 gm Q15M PRN BUCCAL DECREASED GLUCOSE; Start 11/25/18 at 14:30 Budesonide (Pulmicort (Neb)) 0.5 mg BID RESP THERAPY HHN Last administered on 12/02/18at 08:44; Admin Dose 0.5 MG; Start 11/26/18 at 09:00 IV Flush (NS 10 ml) 10 ml PRN PRN IV IV PROTOCOL; Start 11/26/18 at 14:00 Metoprolol Tartrate (Lopressor) 5 mg Q4H PRN IV HR>110 Hold SBP<100 Last administered on 11/29/18at 17:20; Admin Dose 5 MG; Start 11/26/18 at 18:00 Levothyroxine Sodium (Synthroid) 125 mcg DAILY@06 PO Last administered on 12/01/18 06:08; Admin Dose 125 MCG; Start 11/28/18 at 06:00 Ferric Sodium Gluconate Complex 125 mg/Sodium Chloride 110 ml @ 110 mls/hr DAILY@1300 IVPB Last administered on 12/01/18 13:30; Admin Dose 110 MLS/HR; Start 11/28/18 at 13:00; Stop 12/02/18 at 13:59 Albumin Human 100 ml @ 100 mls/hr DURING DIALYSIS PRN IV HYPOTENTION DURING HD; Start 11/27/18 at 20:30 Acetaminophen (Tylenol Liquid) 650 mg Q4H PRN PO MILD PAIN(1-3)OR ELEVATED TEMP Last administered on 11/28/18 18:59; Admin Dose 650 MG; Start 11/28/18 at 16:00 Haloperidol (Haldol) 2 mg Q4 PRN IV AGITATION Last administered on 12/01/18 21:52; Admin Dose 2 MG; Start 11/29/18 at 12:00 Quetiapine Fumarate (Seroquel) 25 mg QHS PO Last administered on 11/30/18 20:24; Admin Dose 25 MG; Start 11/29/18 at 21:00 Pantoprazole (Protonix Tab) 40 mg DAILY@06 PO Last administered on 12/01/18 06:08; Admin Dose 40 MG; Start 11/30/18 at 06:00 Dextrose/Sodium Chloride 1,000 ml @ 40 mls/hr Q24H IV Last administered on 12/01/18 13:31; Admin Dose 40 MLS/HR; Start 11/30/18 at 12:30 Metoprolol Tartrate (Lopressor) 25 mg BID PO Last administered on 12/02/18 09:23; Admin Dose 25 MG; Start 12/02/18 at 09:00 KASIA WORRELL Dec 02, 2018 12:32
[2018-12-02] MEDS: SOD FERRIC GLUC COMPLX 125 MG in SOD CHLORIDE 0.9% 100 ML IVPB SCH (12:48)
[2018-12-02] MEDS: HALOPERIDOL 5 MG INJ IV PRN (13:01)
--- NOTE | 2018-12-02 13:23 | CONS ---
Assessment/Plan Assessment/Plan Assessment/Plan (Daily) 1. Oliguric acute kidney injury on top of chronic kidney disease stage IV with previous baseline creatinine around 2.0 mg/dL. Etiology of acute kidney injury was secondary to acute tubular necrosis due to hemodynamic sepsis. The patient has been initiated on dialysis. HD tomorrow 2. Anemia, etiology is multifactorial secondary to chronic kidney disease, iron deficiency, questionable GI bleed. Patient is currently on IV iron on Epogen. The patient's hemoglobin and hematocrit levels have been improving. Continue to monitor. Continue PPI. Follow up with GI. 3. Mineral bone disorder. Monitor calcium and phosphorus levels. 4. Encephalopathy. Etiology is toxic metabolic, possibly uremic. Continue to monitor. 5. Coronary artery disease. Continue medical management. 6. Diabetes. Continue current insulin regimen. 7. Hypothyroidism. Continue Synthroid. 8. History of asthma. Continue current treatment plan. 9. History of atrial fibrillation. 10. Thrombocytopenia. Continue to monitor. 11. Hypertension. Blood pressure controlled. Consultation Date/Type/Reason Admit Date/Time Nov 25, 2018 at 13:18 Initial Consult Date 11/26/18 Requesting Provider: GENNY SULLIVAN Date/Time of Note DATE: 12/02/18 TIME: 13:21 24 HR Interval Summary Free Text/Dictation s/p HD yesterday denies shortness of breath or nv d/w rn gen nad cv rrr pulm ctab abd soft, nd, nt +bs ext: no edema Exam/Review of Systems Exam Vitals Vital Signs Date Temp Pulse Resp B/P (MAP) Pulse Ox O2 O2 Flow FiO2 Time Delivery Rate 12/02/18 98.2 88 88 177/78 96 Room Air 12:00 (111) 12/02/18 5.0 08:46 Intake and Output 12/01/18 12/01/18 12/02/18 1515:00 23:00 07:00 IntakeIntake Total 510 ml OutputOutput Total 2525 ml BalanceBalance -2014 ml Results Result Diagram: 12/02/18 0741 12/02/18 0741 Results 24hrs Laboratory Tests Test 12/01/18 15:43 12/01/18 17:20 12/01/18 20:38 12/02/18 00:49 White Blood Count 9.9 # Red Blood Count 3.24 L Hemoglobin 9.5 L Hematocrit 31.2 L Mean Corpuscular 96.3 Volume Mean Corpuscular 29.3 Hemoglobin Mean Corpuscular 30.4 L Hemoglobin Concent Red Cell 15.7 H Distribution Width Platelet Count 124 L Mean Platelet Volume 11.7 H Immature 5.400 H Granulocytes % Neutrophils % Segmented 81 H Neutrophils % (Manual) Band Neutrophils % 5 H (Manual) Lymphocytes % Lymphocytes % 2 L (Manual) Monocytes % Monocytes % (Manual) 8 Eosinophils % Basophils % Metamyelocytes % 4 H (manual) Nucleated Red Blood 0.0 Cells % Immature 0.530 H Granulocytes # Neutrophils # Neutrophils # 8.1 H (Manual) Band Neutrophils # 0.4 Lymphocytes (Manual) 0.1 L Lymphocytes # Monocytes # Monocytes # (Manual) 0.7 Eosinophils # Basophils # Metamyelocytes # 0.3 H Nucleated Red Blood Cells # Platelet Estimate DECREASED Polychromasia 3+ Poikilocytosis 1+ Anisocytosis 1+ Microcytosis 1+ Sodium Level 142 Potassium Level 4.4 Chloride Level 100 Carbon Dioxide Level 23 Anion Gap 19 H Blood Urea Nitrogen 54 H Creatinine 6.71 H Est Glomerular Filtrat Rate mL/min Glucose Level 165 Calcium Level 8.7 Phosphorus Level 7.9 #H Magnesium Level 2.7 H Bedside Glucose 144 127 157 Test 12/02/18 04:53 12/02/18 07:41 12/02/18 08:36 12/02/18 12:50 Bedside Glucose 139 152 156 White Blood Count 8.4 Red Blood Count 3.02 L Hemoglobin 8.8 L Hematocrit 28.6 L Mean Corpuscular 94.7 Volume Mean Corpuscular 29.1 Hemoglobin Mean Corpuscular 30.8 L Hemoglobin Concent Red Cell 16.0 H Distribution Width Platelet Count 121 L Mean Platelet Volume 11.7 H Immature 3.900 H Granulocytes % Neutrophils % 76.8 Segmented 73 Neutrophils % (Manual) Band Neutrophils % 5 H (Manual) Lymphocytes % 6.0 L Lymphocytes % 7 L (Manual) Monocytes % 11.9 H Monocytes % (Manual) 9 Eosinophils % 1.2 Eosinophils % 3 (Manual) Basophils % 0.2 Metamyelocytes % 2 H (manual) Myelocytes % 1 H (Manual) Nucleated Red Blood 0.0 Cells % Immature 0.330 H Granulocytes # Neutrophils # 6.5 Neutrophils # 6.2 (Manual) Band Neutrophils # 0.4 Lymphocytes (Manual) 0.5 L Lymphocytes # 0.5 L Monocytes # 1.0 H Monocytes # (Manual) 0.7 Eosinophils # 0.1 Basophils # 0.0 Metamyelocytes # 0.1 H Myelocytes # 0.0 Nucleated Red Blood 0.0 Cells # Platelet Estimate NORMAL Giant Platelets 4 H Polychromasia 1+ Anisocytosis 1+ Microcytosis 1+ Ovalocytes 1+ Sodium Level 141 Potassium Level 4.2 Chloride Level 103 Carbon Dioxide Level 22 Anion Gap 16 H Blood Urea Nitrogen 38 #H Creatinine 5.38 H Est Glomerular Filtrat Rate mL/min Glucose Level 149 Calcium Level 8.7 Phosphorus Level 6.1 H Magnesium Level 2.5 Medications Medication Current Medications Hydralazine HCl (Apresoline) 10 mg Q6H PRN IV SBP >160 Last administered on 12/02/18 13:00; Admin Dose 10 MG; Start 11/25/18 at 14:00 Ondansetron HCl (Zofran Inj) 4 mg Q4H PRN IV NAUSEA AND/OR VOMITING Last administered on 11/29/18 01:10; Admin Dose 4 MG; Start 11/25/18 at 14:00 Insulin Glargine (Lantus) 10 units DAILY@0800 SC Last administered on 12/02/18 09:28; Admin Dose 10 UNITS; Start 11/26/18 at 08:00 Insulin Aspart (Novolog Insulin Pen) NOVOLOG *MILD* ALGORI... Q4 SC Last administered on 12/02/18 12:55; Admin Dose 1 UNIT; Start 11/25/18 at 17:00 Albuterol/ Ipratropium (Duoneb) 3 ml Q6H RESP THERAPY PRN HHN SHORTNESS OF BREATH Last administered on 11/26/18 20:17; Admin Dose 3 ML; Start 11/25/18 at 14:00 Acetaminophen (Tylenol Supp) 650 mg Q4H PRN [place] MILD PAIN(1-3) OR TEMP>38C Last administered on 12/02/18 09:25; Admin Dose 650 MG; Start 11/25/18 at 14:00 Miscellaneous Information 1 ea NOTE XX ; Start 11/25/18 at 14:30 Glucose (Glutose) 15 gm Q15M PRN PO DECREASED GLUCOSE; Start 11/25/18 at 14:30 Glucose (Glutose) 22.5 gm Q15M PRN PO DECREASED GLUCOSE; Start 11/25/18 at 1 4:30 Dextrose (D50w Syringe) 25 ml Q15M PRN IV DECREASED GLUCOSE; Start 11/25/18 at 14:30 Dextrose (D50w Syringe) 50 ml Q15M PRN IV DECREASED GLUCOSE; Start 11/25/18 at 14:30 Glucagon (Glucagen) 1 mg Q15M PRN IM DECREASED GLUCOSE; Start 11/25/18 at 14:30 Glucose (Glutose) 15 gm Q15M PRN BUCCAL DECREASED GLUCOSE; Start 11/25/18 at 14:30 Budesonide (Pulmicort (Neb)) 0.5 mg BID RESP THERAPY HHN Last administered on 12/02/18at 08:44; Admin Dose 0.5 MG; Start 11/26/18 at 09:00 IV Flush (NS 10 ml) 10 ml PRN PRN IV IV PROTOCOL; Start 11/26/18 at 14:00 Metoprolol Tartrate (Lopressor) 5 mg Q4H PRN IV HR>110 Hold SBP<100 Last administered on 11/29/18at 17:20; Admin Dose 5 MG; Start 11/26/18 at 18:00 Levothyroxine Sodium (Synthroid) 125 mcg DAILY@06 PO Last administered on 12/01/18at 06:08; Admin Dose 125 MCG; Start 11/28/18 at 06:00 Ferric Sodium Gluconate Complex 125 mg/Sodium Chloride 110 ml @ 110 mls/hr DAILY@1300 IVPB Last administered on 12/02/18at 12:48; Admin Dose 110 MLS/HR; Start 11/28/18 at 13:00; Stop 12/02/18 at 13:59 Albumin Human 100 ml @ 100 mls/hr DURING DIALYSIS PRN IV HYPOTENTION DURING HD; Start 11/27/18 at 20:30 Acetaminophen (Tylenol Liquid) 650 mg Q4H PRN PO MILD PAIN(1-3)OR ELEVATED TEMP Last administered on 11/28/18at 18:59; Admin Dose 650 MG; Start 11/28/18 at 16:00 Haloperidol (Haldol) 2 mg Q4 PRN IV AGITATION Last administered on 12/02/18at 13:01; Admin Dose 2 MG; Start 11/29/18 at 12:00 Quetiapine Fumarate (Seroquel) 25 mg QHS PO Last administered on 11/30/18at 20:24; Admin Dose 25 MG; Start 11/29/18 at 21:00 Pantoprazole (Protonix Tab) 40 mg DAILY@06 PO Last administered on 12/01/18at 06:08; Admin Dose 40 MG; Start 11/30/18 at 06:00 Dextrose/Sodium Chloride 1,000 ml @ 40 mls/hr Q24H IV Last administered on 12/01/18at 13:31; Admin Dose 40 MLS/HR; Start 11/30/18 at 12:30 Metoprolol Tartrate (Lopressor) 25 mg BID PO Last administered on 12/02/18 09:23; Admin Dose 25 MG; Start 12/02/18 at 09:00 TEA NEWBY MD Dec 02, 2018 13:23
--- NOTE | 2018-12-02 17:36 | CONS ---
Assessment/Plan Assessment/Plan Assessment/Plan (Daily) IMPRESSION: 1. Anemia due to the chronic gastrointestinal blood loss and also chronic disease. 2. Diabetes mellitus. 3. Thrombocytopenia. 4. Bronchial asthma. 5. Atrial fibrillation. 6. Renal failure. Plan Waiting for the report from the other hospital Patient's CEA level was mildly elevated at 6.4 patient might need repeat colonoscopy Daughter could get the report from the the hospital Consultation Date/Type/Reason Admit Date/Time Nov 25, 2018 at 13:18 Initial Consult Date 11/26/18 Requesting Provider: GENNY SULLIVAN Date/Time of Note DATE: 12/02/18 TIME: 17:35 24 HR Interval Summary Constitutional: improved, disoriented Exam/Review of Systems Exam Vitals Vital Signs Date Temp Pulse Resp B/P (MAP) Pulse Ox O2 O2 Flow FiO2 Time Delivery Rate 12/02/18 98.2 97 20 140/82 94 Nasal 16:19 (101) Cannula 12/02/18 5.0 08:46 Intake and Output 12/01/18 12/01/18 12/02/18 1515:00 23:00 07:00 IntakeIntake Total 510 ml OutputOutput Total 2525 ml BalanceBalance -2015 ml Constitutional: alert, oriented, well developed Psych: no complaints, nl mood/affect Head: normocephalic, atraumatic Eyes: nl conjunctiva, EOMI, nl lids, nl sclera, PERRL ENMT: nl external ears & nose, nl lips & teeth, nl nasal mucosa & septum Neck: supple, non-tender Respiratory: clear to auscultation, normal air movement Cardiovascular: regular rate and rhythm, nl pulses Gastrointestinal: soft, nl liver, spleen, non-tender Musculoskeletal: nl extremities to inspection, nl gait and stance Extremities: normal pulses Neurological: PHOTO 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 II-XII intact, nl mental status, nl speech, nl strength Skin: nl turgor; No rash or lesions Lymph: nl lymph nodes Results Result Diagram: 12/02/18 0741 12/02/18 0741 Results 24hrs Laboratory Tests Test 12/01/18 20:38 12/02/18 00:49 12/02/18 04:53 12/02/18 07:41 Bedside Glucose 127 157 139 White Blood Count 8.4 Red Blood Count 3.02 L Hemoglobin 8.8 L Hematocrit 28.6 L Mean Corpuscular 94.7 Volume Mean Corpuscular 29.1 Hemoglobin Mean Corpuscular 30.8 L Hemoglobin Concent Red Cell 16.0 H Distribution Width Platelet Count 121 L Mean Platelet Volume 11.7 H Immature 3.900 H Granulocytes % Neutrophils % 76.8 Segmented 73 Neutrophils % (Manual) Band Neutrophils % 5 H (Manual) Lymphocytes % 6.0 L Lymphocytes % 7 L (Manual) Monocytes % 11.9 H Monocytes % (Manual) 9 Eosinophils % 1.2 Eosinophils % 3 (Manual) Basophils % 0.2 Metamyelocytes % 2 H (manual) Myelocytes % 1 H (Manual) Nucleated Red Blood 0.0 Cells % Immature 0.330 H Granulocytes # Neutrophils # 6.5 Neutrophils # 6.2 (Manual) Band Neutrophils # 0.4 Lymphocytes (Manual) 0.5 L Lymphocytes # 0.5 L Monocytes # 1.0 H Monocytes # (Manual) 0.7 Eosinophils # 0.1 Basophils # 0.0 Metamyelocytes # 0.1 H Myelocytes # 0.0 Nucleated Red Blood 0.0 Cells # Platelet Estimate NORMAL Giant Platelets 4 H Polychromasia 1+ Anisocytosis 1+ Microcytosis 1+ Ovalocytes 1+ Sodium Level 141 Potassium Level 4.2 Chloride Level 103 Carbon Dioxide Level 22 Anion Gap 16 H Blood Urea Nitrogen 38 #H Creatinine 5.38 H Est Glomerular Filtrat Rate mL/min Glucose Level 149 Calcium Level 8.7 Phosphorus Level 6.1 H Magnesium Level 2.5 Test 12/02/18 08:36 12/02/18 12:50 Bedside Glucose 152 156 Medications Medication Current Medications Hydralazine HCl (Apresoline) 10 mg Q6H PRN IV SBP >160 Last administered on 12/02/18at 13:00; Admin Dose 10 MG; Start 11/25/18 at 14:00 Ondansetron HCl (Zofran Inj) 4 mg Q4H PRN IV NAUSEA AND/OR VOMITING Last administered on 11/29/18at 01:10; Admin Dose 4 MG; Start 11/25/18 at 14:00 Insulin Glargine (Lantus) 10 units DAILY@0800 SC Last administered on 12/02/18at 09:28; Admin Dose 10 UNITS; Start 11/26/18 at 08:00 Insulin Aspart (Novolog Insulin Pen) NOVOLOG *MILD* ALGORI... Q4 SC Last administered on 12/02/18at 12:55; Admin Dose 1 UNIT; Start 11/25/18 at 17:00 Albuterol/ Ipratropium (Duoneb) 3 ml Q6H RESP THERAPY PRN HHN SHORTNESS OF B REATH Last administered on 11/26/18at 20:17; Admin Dose 3 ML; Start 11/25/18 at 14:00 Acetaminophen (Tylenol Supp) 650 mg Q4H PRN [place] MILD PAIN(1-3) OR TEMP>38C Last administered on 12/02/18at 09:25; Admin Dose 650 MG; Start 11/25/18 at 14:00 Miscellaneous Information 1 ea NOTE XX ; Start 11/25/18 at 14:30 Glucose (Glutose) 15 gm Q15M PRN PO DECREASED GLUCOSE; Start 11/25/18 at 14:30 Glucose (Glutose) 22.5 gm Q15M PRN PO DECREASED GLUCOSE; Start 11/25/18 at 14:30 Dextrose (D50w Syringe) 25 ml Q15M PRN IV DECREASED GLUCOSE; Start 11/25/18 at 14:30 Dextrose (D50w Syringe) 50 ml Q15M PRN IV DECREASED GLUCOSE; Start 11/25/18 at 14:30 Glucagon (Glucagen) 1 mg Q15M PRN IM DECREASED GLUCOSE; Start 11/25/18 at 14:30 Glucose (Glutose) 15 gm Q15M PRN BUCCAL DECREASED GLUCOSE; Start 11/25/18 at 1 4:30 Budesonide (Pulmicort (Neb)) 0.5 mg BID RESP THERAPY HHN Last administered on 12/02/18at 08:44; Admin Dose 0.5 MG; Start 11/26/18 at 09:00 IV Flush (NS 10 ml) 10 ml PRN PRN IV IV PROTOCOL; Start 11/26/18 at 14:00 Metoprolol Tartrate (Lopressor) 5 mg Q4H PRN IV HR>110 Hold SBP<100 Last admini stered on 11/29/18at 17:20; Admin Dose 5 MG; Start 11/26/18 at 18:00 Levothyroxine Sodium (Synthroid) 125 mcg DAILY@06 PO Last administered on 12/01/18at 06:08; Admin Dose 125 MCG; Start 11/28/18 at 06:00 Albumin Human 100 ml @ 100 mls/hr DURING DIALYSIS PRN IV HYPOTENTION DURING HD; Start 11/27/18 at 20:30 Acetaminophen (Tylenol Liquid) 650 mg Q4H PRN PO MILD PAIN(1-3)OR ELEVATED TEMP Last administered on 11/28/18 18:59; Admin Dose 650 MG; Start 11/28/18 at 16:00 Haloperidol (Haldol) 2 mg Q4 PRN IV AGITATION Last administered on 12/02/18 13:01; Admin Dose 2 MG; Start 11/29/18 at 12:00 Quetiapine Fumarate (Seroquel) 25 mg QHS PO Last administered on 11/30/18 20:24; Admin Dose 25 MG; Start 11/29/18 at 21:00 Pantoprazole (Protonix Tab) 40 mg DAILY@06 PO Last administered on 12/01/18 06:08; Admin Dose 40 MG; Start 11/30/18 at 06:00 Dextrose/Sodium Chloride 1,000 ml @ 40 mls/hr Q24H IV Last administered on 12/01/18 13:31; Admin Dose 40 MLS/HR; Start 11/30/18 at 12:30 Metoprolol Tartrate (Lopressor) 25 mg BID PO Last administered on 12/02/18 09:23; Admin Dose 25 MG; Start 12/02/18 at 09:00 KASANDRA FLOYD MD Dec 02, 2018 17:36
[2018-12-02] MEDS: QUETIAPINE 25 MG TAB PO SCH (20:53)
[2018-12-03] VITALS (35 sets, daily range): BP systolic 89–183; BP diastolic 47–115; PULSE 83–107; RESP 18–20
[2018-12-03] MEDS: ENALAPRILAT 1.25 MG INJ IV PRN ×2 (00:34→02:30)
[2018-12-03] MEDS: INSULIN ASPART [NOVOLOG] 3 ML PEN SC SCH ×6 (00:44→21:00)
[2018-12-03] MEDS: LEVOTHYROXINE 125 MCG TAB PO SCH (05:20)
[2018-12-03] MEDS: PANTOPRAZOLE (EC) 40 MG TAB PO SCH (05:20)
[2018-12-03] MEDS: hydrALAzine 20 MG INJ IV PRN (05:57)
[2018-12-03] MEDS: BUDESONIDE (NEB) 0.5MG/2ML AMP HHN SCH ×2 (08:01→20:12)
--- NOTE | 2018-12-03 08:02 | CONS ---
Assessment/Plan Assessment/Plan Hospital Course (Demo Recall) 78-year-old female with a history of hypertension, CHF, chronic kidney disease, diabetes mellitus, pulmonary embolism, colon cancer, status post surgery, atrial fibrillation admitted originally to [facility] for respiratory failure, transferred to [place]. At [place] pt was found to be hypotensive and transferred to [facility]. We were consulted for anemia and positive guaiac stool Interval hx: HH slightly decreased. No signs GI bleeding per RN. 1. Anemia due to the chronic gastrointestinal blood loss and also chronic disease. 2. Diabetes mellitus. 3. Thrombocytopenia. 4. Bronchial asthma. 5. Atrial fibrillation. 6. Renal failure. 7. Mildly elevated CEA at 6.6 Plan Waiting for the EGD, colonoscopy report from the other hospital and capsule endoscopy report. Per RN it was faxed yesterday. She will call us once she receives reports. Pt may need repeat colonoscopy since CEA elevated and positive FOB Pt examined and plan of care discussed with Dr. Schaffer Consultation Date/Type/Reason Admit Date/Time Nov 25, 2018 at 13:18 Initial Consult Date 11/26/18 Requesting Provider: GENNY SULLIVAN Date/Time of Note DATE: 12/03/18 TIME: 07:57 Exam/Review of Systems Exam Vitals Vital Signs Date Temp Pulse Resp B/P (MAP) Pulse Ox O2 O2 Flow FiO2 Time Delivery Rate 12/03/18 97.4 102 18 163/82 94 Room Air 07:46 (109) 12/03/18 2.0 04:21 Intake and Output 12/02/18 12/02/18 12/03/18 1515:00 23:00 07:00 IntakeIntake Total 480 ml 500 ml 480 ml OutputOutput Total 100 ml 20 ml BalanceBalance 380 ml 500 ml 460 ml Constitutional: alert Eyes: nl sclera ENMT: mucosa pink and moist Respiratory: wheezing Cardiovascular: regular rate and rhythm Gastrointestinal: soft, non-tender Extremities: normal pulses Results Result Diagram: 12/02/18 0741 12/02/18 0741 Results 24hrs Laboratory Tests Test 12/02/18 08:36 12/02/18 12:50 12/02/18 17:44 12/02/18 20:46 Bedside Glucose 152 156 138 141 Test 12/03/18 00:43 12/03/18 04:29 Bedside Glucose 139 157 Medications Medication Current Medications Hydralazine HCl (Apresoline) 10 mg Q6H PRN IV SBP >160 Last administered on 12/03/18at 05:57; Admin Dose 10 MG; Start 11/25/18 at 14:00 Ondansetron HCl (Zofran Inj) 4 mg Q4H PRN IV NAUSEA AND/OR VOMITING Last administered on 11/29/18at 01:10; Admin Dose 4 MG; Start 11/25/18 at 14:00 Insulin Glargine (Lantus) 10 units DAILY@0800 SC Last administered on 12/02/18at 09:28; Admin Dose 10 UNITS; Start 11/26/18 at 08:00 Insulin Aspart (Novolog Insulin Pen) NOVOLOG *MILD* ALGORI... Q4 SC Last administered on 12/03/18at 04:34; Admin Dose 1 UNIT; Start 11/25/18 at 17:00 Albuterol/ Ipratropium (Duoneb) 3 ml Q6H RESP THERAPY PRN HHN SHORTNESS OF BREATH Last administered on 11/26/18at 20:17; Admin Dose 3 ML; Start 11/25/18 at 14:00 Acetaminophen (Tylenol Supp) 650 mg Q4H PRN [place] MILD PAIN(1-3) OR TEMP>38C Last administered on 12/02/18at 09:25; Admin Dose 650 MG; Start 11/25/18 at 14:00 Miscellaneous Information 1 ea NOTE XX ; Start 11/25/18 at 14:30 Glucose (Glutose) 15 gm Q15M PRN PO DECREASED GLUCOSE; Start 11/25/18 at 14:30 Glucose (Glutose) 22.5 gm Q15M PRN PO DECREASED GLUCOSE; Start 11/25/18 at 14:30 Dextrose (D50w Syringe) 25 ml Q15M PRN IV DECREASED GLUCOSE; Start 11/25/18 at 14:30 Dextrose (D50w Syringe) 50 ml Q15M PRN IV DECREASED GLUCOSE; Start 11/25/18 at 14:30 Glucagon (Glucagen) 1 mg Q15M PRN IM DECREASED GLUCOSE; Start 11/25/18 at 14:30 Glucose (Glutose) 15 gm Q15M PRN BUCCAL DECREASED GLUCOSE; Start 11/25/18 at 14:30 Budesonide (Pulmicort (Neb)) 0.5 mg BID RESP THERAPY HHN Last administered on 12/02/18 20:28; Admin Dose 0.5 MG; Start 11/26/18 at 09:00 IV Flush (NS 10 ml) 10 ml PRN PRN IV IV PROTOCOL; Start 11/26/18 at 14:00 Metoprolol Tartrate (Lopressor) 5 mg Q4H PRN IV HR>110 Hold SBP<100 Last administered on 11/29/18 17:20; Admin Dose 5 MG; Start 11/26/18 at 18:00 Levothyroxine Sodium (Synthroid) 125 mcg DAILY@06 PO Last administered on 12/01/18 06:08; Admin Dose 125 MCG; Start 11/28/18 at 06:00 Albumin Human 100 ml @ 100 mls/hr DURING DIALYSIS PRN IV HYPOTENTION DURING HD; Start 11/27/18 at 20:30 Acetaminophen (Tylenol Liquid) 650 mg Q4H PRN PO MILD PAIN(1-3)OR ELEVATED TEMP Last administered on 11/28/18at 18:59; Admin Dose 650 MG; Start 11/28/18 at 16:00 Haloperidol (Haldol) 2 mg Q4 PRN IV AGITATION Last administered on 12/02/18 13:01; Admin Dose 2 MG; Start 11/29/18 at 12:00 Quetiapine Fumarate (Seroquel) 25 mg QHS PO Last administered on 11/30/18 20:24; Admin Dose 25 MG; Start 11/29/18 at 21:00 Pantoprazole (Protonix Tab) 40 mg DAILY@06 PO Last administered on 12/01/18 06:08; Admin Dose 40 MG; Start 11/30/18 at 06:00 Dextrose/Sodium Chloride 1,000 ml @ 40 mls/hr Q24H IV Last administered on 12/02/18 21:55; Admin Dose 40 MLS/HR; Start 11/30/18 at 12:30 Metoprolol Tartrate (Lopressor) 25 mg BID PO Last administered on 12/02/18 09:23; Admin Dose 25 MG; Start 12/02/18 at 09:00 Enalaprilat (Vasotec Iv) 1.25 mg Q2H PRN IV ELEVATED SYSTOLIC BP Last administered on 4/22/19at 02:30; Admin Dose 1.25 MG; Start 12/03/18 at 00:30 SOLOMON BYRD Dec 03, 2018 08:02
--- NOTE | 2018-12-03 08:56 | PN ---
DATE: 12/03/2018 SUBJECTIVE: The patient is stable. No events overnight. The patient's urinary output has been emili inal. The patient remains confused. No other events noted. OBJECTIVE: VITAL SIGNS: Blood pressure is 163/82, respirations 18, pulse 102, temperature 97.4. HEENT: Head is normocephalic. NECK: Supple. HEART: Regular rate. LUNGS: Show diminished breath sounds at the base. ABDOMEN: Soft, nontender to palpation without rebound or guarding. EXTREMITIES: Negative for clubbing, cyanosis, no edema. DERMATOLOGIC: No rashes. MUSCULOSKELETAL: No joint effusion. NEUROLOGIC: No change in exam. MEDICATIONS: Reviewed. LABORATORY DATA: Reviewed. ASSESSMENT AND PLAN: 1. Oliguric acute kidney injury on top of chronic kidney disease stage IV with previous baseline cre atinine around of 3.0 mg/dL. Etiology of acute kidney injury is secondary to acute tubular necrosis, due to hemodynamics and sepsis. The patient has been initiated on hemodialysis. There has been no signs of renal recovery. Plan is for dialysis again today. 2. Anemia, etiology is multifactorial secondary to chronic kidney disease, iron deficiency, question able gastrointestinal bleed. Continue IV iron and Epogen. Monitor hemoglobin and hematocrit levels. Continue proton pump inhibitor. Follow up with GI. 3. Mineral bone disorder. Continue to monitor calcium and phosphorus levels. 4. Encephalopathy. Etiology is toxic metabolic. Continue to monitor. 5. Coronary artery disease. Continue medical management. 6. Diabetes. Continue current insulin regimen. 7. Hypothyroidism. Continue Synthroid. 8. History of asthma. Continue current treatment plan. 9. History of atrial fibrillation. Continue medical management. 10. Thrombocytopenia. Continue to monitor. 11. Hypertension. Continue current blood pressure regimen. Continue ultrafiltration with dialysis. Dictated By: SUSY CISNEROS DO NR/NTS Conf#: [id number] DID#: [id number] CC: NEREIDA MCQUEEN MD; EVA LOPEZ MD;*EndCC*
[2018-12-03] MEDS: METOPROLOL 25 MG TAB PO SCH ×2 (09:00→21:00)
[2018-12-03] MEDS: INSULIN GLARGINE [LANTus] (100 UNITS/ML) SYG SC SCH (09:27)
[2018-12-03] MEDS ORDERED: ALTEPLASE (CATHFLO) 2 MG INJ CATHETER ONE (11:00)
--- NOTE | 2018-12-03 11:39 | CONS ---
Assessment/Plan Assessment/Plan Hospital Course (Demo Recall) IMPRESSION: 1. Hypotension-overall improved and not on pressors currently and now HTN requiring medications 2. Atrial fibrillation, primarily rate controlled off of antihypertensives at this time. 3. Anemia, worsening with guaiac positive stool consistent with gastrointestinal bleed. 4. Diabetes mellitus. 5. Acute on chronic renal failure, being initiated on hemodialysis. 6. Altered mental state. 7. Diastolic congestive heart failure due to a preserved EF by most recent echo and findings by chest x-ray. 8. History of coronary artery disease, nonobstructive by outside hospital ca theterization. 9. Shortness of breath with hypothyroidism. 10. Diabetes mellitus. Recc: -Continue BB and will add clonidine TTS to improve BP control -HD for volume removal -Follow HR/rhythm closely -not on anticoagulation secondary to GIB/anemia requiring transfusion Consultation Date/Type/Reason Admit Date/Time Nov 25, 2018 at 13:18 Initial Consult Date 11/26/18 Type of Consult Cardiology Reason for Consultation Hotn Requesting Provider: GENNY SULLIVAN Date/Time of Note DATE: 12/03/18 TIME: 11:35 Exam/Review of Systems Vital Signs Vitals Vital Signs Date Temp Pulse Resp B/P (MAP) Pulse Ox O2 O2 Flow FiO2 Time Delivery Rate 12/03/18 2.0 08:05 12/03/18 92 18 100 Nasal 08:05 Cannula 12/03/18 97.4 163/82 07:46 (109) Intake and Output 12/02/18 12/02/18 12/03/18 1515:00 23:00 07:00 IntakeIntake Total 480 ml 500 ml 480 ml OutputOutput Total 100 ml 20 ml BalanceBalance 380 ml 500 ml 460 ml Exam Exam Review of Systems: CONSTITUTIONAL: No fevers, chills. PULMONARY: No sob CARDIOVASCULAR: No chest pain/palpitations GASTROINTESTINAL: No nausea/vomiting. GENITOURINARY: No hematuria/dysuria. MUSCULOSKELETAL: No myagias/arthalgias. PSYCHIATRIC: The patient denies depression. NEUROLOGIC: lethargic Constitutional: alert Psych: no complaints Head: normocephalic ENMT: mucosa pink and moist Neck: supple, jvd (9 cm water) Respiratory: diminished breath sounds (at bases/B) Cardiovascular: regular rate and rhythm Gastrointestinal: soft, non-tender Musculoskeletal: muscle tone (normal) Extremities: pitting pedal edema (bilateral LE) Neurological: other (No focal deficits) Labs Result Diagram: 12/02/18 0741 12/02/18 0741 Results 24hrs Laboratory Tests Test 12/02/18 12:50 12/02/18 17:44 12/02/18 20:46 12/03/18 00:43 Bedside Glucose 156 138 141 139 Test 12/03/18 04:29 12/03/18 08:04 12/03/18 09:20 Bedside Glucose 157 174 194 Medications Medications Current Medications Hydralazine HCl (Apresoline) 10 mg Q6H PRN IV SBP >160 Last administered on 12/03/18at 05:57; Admin Dose 10 MG; Start 11/25/18 at 14:00 Ondansetron HCl (Zofran Inj) 4 mg Q4H PRN IV NAUSEA AND/OR VOMITING Last administered on 11/29/18at 01:10; Admin Dose 4 MG; Start 11/25/18 at 14:00 Insulin Glargine (Lantus) 10 units DAILY@0800 SC Last administered on 12/03/18 09:27; Admin Dose 10 UNITS; Start 11/26/18 at 08:00 Insulin Aspart (Novolog Insulin Pen) NOVOLOG *MILD* ALGORI... Q4 SC Last administered on 12/03/18 09:28; Admin Dose 2 UNIT; Start 11/25/18 at 17:00 Albuterol/ Ipratropium (Duoneb) 3 ml Q6H RESP THERAPY PRN HHN SHORTNESS OF BREATH Last administered on 11/26/18at 20:17; Admin Dose 3 ML; Start 11/25/18 at 14:00 Acetaminophen (Tylenol Supp) 650 mg Q4H PRN [place] MILD PAIN(1-3) OR TEMP>38C Last administered on 12/02/18 09:25; Admin Dose 650 MG; Start 11/25/18 at 14:00 Miscellaneous Information 1 ea NOTE XX ; Start 11/25/18 at 14:30 Glucose (Glutose) 15 gm Q15M PRN PO DECREASED GLUCOSE; Start 11/25/18 at 14:30 Glucose (Glutose) 22.5 gm Q15M PRN PO DECREASED GLUCOSE; Start 11/25/18 at 14:30 Dextrose (D50w Syringe) 25 ml Q15M PRN IV DECREASED GLUCOSE; Start 11/25/18 at 14:30 Dextrose (D50w Syringe) 50 ml Q15M PRN IV DECREASED GLUCOSE; Start 11/25/18 at 14:30 Glucagon (Glucagen) 1 mg Q15M PRN IM DECREASED GLUCOSE; Start 11/25/18 at 14:30 Glucose (Glutose) 15 gm Q15M PRN BUCCAL DECREASED GLUCOSE; Start 11/25/18 at 14:30 Budesonide (Pulmicort (Neb)) 0.5 mg BID RESP THERAPY HHN Last administered on 12/03/18 08:01; Admin Dose 0.5 MG; Start 11/26/18 at 09:00 IV Flush (NS 10 ml) 10 ml PRN PRN IV IV PROTOCOL; Start 11/26/18 at 14:00 Metoprolol Tartrate (Lopressor) 5 mg Q4H PRN IV HR>110 Hold SBP<100 Last admi nistered on 11/29/18 17:20; Admin Dose 5 MG; Start 11/26/18 at 18:00 Levothyroxine Sodium (Synthroid) 125 mcg DAILY@06 PO Last administered on 12/01/18 06:08; Admin Dose 125 MCG; Start 11/28/18 at 06:00 Albumin Human 100 ml @ 100 mls/hr DURING DIALYSIS PRN IV HYPOTENTION DURING HD Last administered on 12/03/18 10:51; Admin Dose 100 MLS/HR; Start 11/27/18 at 20:30 Acetaminophen (Tylenol Liquid) 650 mg Q4H PRN PO MILD PAIN(1-3)OR ELEVATED TEMP Last administered on 11/28/18at 18:59; Admin Dose 650 MG; Start 11/28/18 at 16:00 Haloperidol (Haldol) 2 mg Q4 PRN IV AGITATION Last administered on 12/02/18 13:01; Admin Dose 2 MG; Start 11/29/18 at 12:00 Quetiapine Fumarate (Seroquel) 25 mg QHS PO Last administered on 11/30/18 20:24; Admin Dose 25 MG; Start 11/29/18 at 21:00 Pantoprazole (Protonix Tab) 40 mg DAILY@06 PO Last administered on 12/01/18 06:08; Admin Dose 40 MG; Start 11/30/18 at 06:00 Dextrose/Sodium Chloride 1,000 ml @ 40 mls/hr Q24H IV Last administered on 12/02/18at 21:55; Admin Dose 40 MLS/HR; Start 11/30/18 at 12:30 Metoprolol Tartrate (Lopressor) 25 mg BID PO Last administered on 12/02/18at 09:23; Admin Dose 25 MG; Start 12/02/18 at 09:00 Enalaprilat (Vasotec Iv) 1.25 mg Q2H PRN IV ELEVATED SYSTOLIC BP Last administered on 12/03/18at 02:30; Admin Dose 1.25 MG; Start 12/03/18 at 00:30 Epoetin Kavon-epbx (RETACRIT(esrd)) 10,000 unit MoWeFr@1700 SC ; Start 12/03/18 at 17:00 CARMELO MAE Dec 03, 2018 11:39
[2018-12-03] MEDS: DEXTROSE 5%-0.45% NACL 1,000 ML IV SCH (12:30)
--- NOTE | 2018-12-03 13:20 | PN ---
Date/Time of Note Date/Time of Note DATE: 12/03/18 TIME: 13:19 Assessment/Plan VTE Prophylaxis Risk score (from Ns)>0 risk: 9 SCD applied (from Nsg): Yes Pharmacological prophylaxis: LMWH Lines/Catheters IV [facility]ter [facility]from [facility] trialysis cath Urinary Cath still in place: Yes Reason Cath still needed: skin wounds contaminated by urine Assessment/Plan Hospital Course 1. Oliguric acute kidney injury on top of chronic kidney disease stage IV with previous baseline creatinine around 2.0 mg/dL. Etiology of acute kidney injury was secondary to acute tubular necrosis due to hemodynamic sepsis. The patient has been initiated on dialysis, status post 3 sessions. Plan for hemodialysis again tomorrow. Monitor for any signs of renal recovery. 2. Anemia, etiology is multifactorial secondary to chronic kidney disease, iron deficiency, questionable GI bleed. Patient is currently on IV iron on Epogen. The patient's hemoglobin and hematocrit levels have been improving. Continue to monitor. Continue PPI. Follow up with GI. 3. Mineral bone disorder. Monitor calcium and phosphorus levels. 4. Encephalopathy. Etiology is toxic metabolic, possibly uremic. Continue to monitor. 5. Coronary artery disease. Continue medical management. 6. Diabetes. Continue current insulin regimen. 7. Hypothyroidism. Continue Synthroid. 8. History of asthma. Continue current treatment plan. 9. History of atrial fibrillation. 10. Thrombocytopenia. Continue to monitor. 11. Hypertension. Blood pressure controlled. Result Diagram: 12/02/18 0741 12/02/18 0741 Results 24hrs Laboratory Tests Test 12/02/18 17:44 12/02/18 20:46 12/03/18 00:43 12/03/18 04:29 Bedside Glucose 138 141 139 157 Test 12/03/18 08:04 12/03/18 09:20 Bedside Glucose 174 194 Subjective 24 Hr Interval Summary Free Text/Dictation Patient has no complaints Exam/Review of Systems Exam Vitals Vital Signs Date Temp Pulse Resp B/P (MAP) Pulse Ox O2 O2 Flow FiO2 Time Delivery Rate 12/03/18 98.4 100 20 110/85 94 Nasal 13:05 (93) Cannula 12/03/18 2.0 08:05 Intake and Output 12/02/18 12/02/18 12/03/18 1515:00 23:00 07:00 IntakeIntake Total 480 ml 500 ml 480 ml OutputOutput Total 100 ml 20 ml BalanceBalance 380 ml 500 ml 460 ml Constitutional: well developed Head: normocephalic, atraumatic Neck: supple Respiratory: diminished breath sounds Cardiovascular: regular rate and rhythm Gastrointestinal: soft, non-tender Extremities: normal pulses Results Results 24hrs Laboratory Tests Test 12/02/18 17:44 12/02/18 20:46 12/03/18 00:43 12/03/18 04:29 Bedside Glucose 138 141 139 157 Test 12/03/18 08:04 12/03/18 09:20 Bedside Glucose 174 194 Medications Medication Current Medications Hydralazine HCl (Apresoline) 10 mg Q6H PRN IV SBP >160 Last administered on 12/03/18 05:57; Admin Dose 10 MG; Start 11/25/18 at 14:00 Ondansetron HCl (Zofran Inj) 4 mg Q4H PRN IV NAUSEA AND/OR VOMITING Last administered on 11/29/18 01:10; Admin Dose 4 MG; Start 11/25/18 at 14:00 Insulin Glargine (Lantus) 10 units DAILY@0800 SC Last administered on 12/03/18 09:27; Admin Dose 10 UNITS; Start 11/26/18 at 08:00 Insulin Aspart (Novolog Insulin Pen) NOVOLOG *MILD* ALGORI... Q4 SC Last administered on 12/03/18 09:28; Admin Dose 2 UNIT; Start 11/25/18 at 17:00 Albuterol/ Ipratropium (Duoneb) 3 ml Q6H RESP THERAPY PRN HHN SHORTNESS OF BREATH Last administered on 11/26/18at 20:17; Admin Dose 3 ML; Start 11/25/18 at 14:00 Acetaminophen (Tylenol Supp) 650 mg Q4H PRN [place] MILD PAIN(1-3) OR TEMP>38C Last administered on 12/02/18 09:25; Admin Dose 650 MG; Start 11/25/18 at 14:00 Miscellaneous Information 1 ea NOTE XX ; Start 11/25/18 at 14:30 Glucose (Glutose) 15 gm Q15M PRN PO DECREASED GLUCOSE; Start 11/25/18 at 14:30 Glucose (Glutose) 22.5 gm Q15M PRN PO DECREASED GLUCOSE; Start 11/25/18 at 14:30 Dextrose (D50w Syringe) 25 ml Q15M PRN IV DECREASED GLUCOSE; Start 11/25/18 at 14:30 Dextrose (D50w Syringe) 50 ml Q15M PRN IV DECREASED GLUCOSE; Start 11/25/18 at 14:30 Glucagon (Glucagen) 1 mg Q15M PRN IM DECREASED GLUCOSE; Start 11/25/18 at 14:30 Glucose (Glutose) 15 gm Q15M PRN BUCCAL DECREASED GLUCOSE; Start 11/25/18 at 14:30 Budesonide (Pulmicort (Neb)) 0.5 mg BID RESP THERAPY HHN Last administered on 12/03/18 08:01; Admin Dose 0.5 MG; Start 11/26/18 at 09:00 IV Flush (NS 10 ml) 10 ml PRN PRN IV IV PROTOCOL; Start 11/26/18 at 14:00 Metoprolol Tartrate (Lopressor) 5 mg Q4H PRN IV HR>110 Hold SBP<100 Last administered on 11/29/18at 17:20; Admin Dose 5 MG; Start 11/26/18 at 18:00 Levothyroxine Sodium (Synthroid) 125 mcg DAILY@06 PO Last administered on 11/13 06:08; Admin Dose 125 MCG; Start 11/28/18 at 06:00 Albumin Human 100 ml @ 100 mls/hr DURING DIALYSIS PRN IV HYPOTENTION DURING HD Last administered on 12/03/18 10:51; Admin Dose 100 MLS/HR; Start 11/27/18 at 20:30 Acetaminophen (Tylenol Liquid) 650 mg Q4H PRN PO MILD PAIN(1-3)OR ELEVATED TEMP Last administered on 11/28/18at 18:59; Admin Dose 650 MG; Start 11/28/18 at 16:00 Haloperidol (Haldol) 2 mg Q4 PRN IV AGITATION Last administered on 12/02/18 13:01; Admin Dose 2 MG; Start 11/29/18 at 12:00 Quetiapine Fumarate (Seroquel) 25 mg QHS PO Last administered on 11/30/18 20:24; Admin Dose 25 MG; Start 11/29/18 at 21:00 Pantoprazole (Protonix Tab) 40 mg DAILY@06 PO Last administered on 4/20/19at 06:08; Admin Dose 40 MG; Start 11/30/18 at 06:00 Dextrose/Sodium Chloride 1,000 ml @ 40 mls/hr Q24H IV Last administered on 12/02/18at 21:55; Admin Dose 40 MLS/HR; Start 11/30/18 at 12:30 Metoprolol Tartrate (Lopressor) 25 mg BID PO Last administered on 12/02/18at 09:23; Admin Dose 25 MG; Start 12/02/18 at 09:00 Enalaprilat (Vasotec Iv) 1.25 mg Q2H PRN IV ELEVATED SYSTOLIC BP Last administered on 12/03/18at 02:30; Admin Dose 1.25 MG; Start 12/03/18 at 00:30 Epoetin Kavon-epbx (RETACRIT(esrd)) 10,000 unit MoWeFr@1700 SC ; Start 12/03/18 at 17:00 Clonidine HCl (Catapres-Tts 2 Patch) 1 patch Q7D TRANSDERM ; Start 12/03/18 at 13:00 KASIA WORRELL Dec 03, 2018 13:20
[2018-12-03] MEDS: CLONIDINE 0.2 MG/24 HR PATCH TRANSDERM SCH (14:25)
--- NOTE | 2018-12-03 14:35 | CONS ---
Consult Date/Type/Reason Admit Date/Time Nov 25, 2018 at 13:18 Initial Consult Date 11/26/18 Type of Consult Pulmonary Requesting Provider: GENNY SULLIVAN Date/Time of Note DATE: 12/03/18 TIME: 14:32 Subjective No events Remains stable. Objective Vital Signs Date Temp Pulse Resp B/P (MAP) Pulse Ox O2 O2 Flow FiO2 Time Delivery Rate 12/03/18 98.0 96 20 158/65 91 Nasal 13:47 (96) Cannula 12/03/18 2.0 13:00 Intake and Output 12/02/18 12/02/18 12/03/18 1515:00 23:00 07:00 IntakeIntake Total 480 ml 500 ml 480 ml OutputOutput Total 100 ml 20 ml BalanceBalance 380 ml 500 ml 460 ml Exam GENERAL: Elderly [place] lady comfortable at rest VITAL SIGNS: per chart NECK: Supple. No JVD or lymphadenopathy. CARDIAC EXAM: S1, S2. No added sounds or murmurs. CHEST: clear bilaterally, No added sounds, rales or wheezes ABDOMEN: Soft, nontender. No guarding or rebound. EXTREMITIES: No cyanosis, clubbing or edema. NEUROLOGIC: Generalized weakness. Vent Setting Fraction of Inspired Oxygen pe: 27 Results/Medications Result Diagram: 12/02/18 0741 12/02/18 0741 Results 24 hrs Laboratory Tests Test 12/02/18 17:44 12/02/18 20:46 12/03/18 00:43 12/03/18 04:29 Bedside Glucose 138 141 139 157 Test 12/03/18 08:04 12/03/18 09:20 Bedside Glucose 174 194 Medications Current Medications Hydralazine HCl (Apresoline) 10 mg Q6H PRN IV SBP >160 Last administered on 12/03/18at 05:57; Admin Dose 10 MG; Start 11/25/18 at 14:00 Ondansetron HCl (Zofran Inj) 4 mg Q4H PRN IV NAUSEA AND/OR VOMITING Last administered on 11/29/18at 01:10; Admin Dose 4 MG; Start 11/25/18 at 14:00 Insulin Glargine (Lantus) 10 units DAILY@0800 SC Last administered on 12/03/18at 09:27; Admin Dose 10 UNITS; Start 11/26/18 at 08:00 Insulin Aspart (Novolog Insulin Pen) NOVOLOG *MILD* ALGORI... Q4 SC Last administered on 12/03/18at 09:28; Admin Dose 2 UNIT; Start 11/25/18 at 17:00 Albuterol/ Ipratropium (Duoneb) 3 ml Q6H RESP THERAPY PRN HHN SHORTNESS OF BREATH Last administered on 11/26/18at 20:17; Admin Dose 3 ML; Start 11/25/18 at 14:00 Acetaminophen (Tylenol Supp) 650 mg Q4H PRN [place] MILD PAIN(1-3) OR TEMP>38C Last administered on 12/02/18at 09:25; Admin Dose 650 MG; Start 11/25/18 at 14:00 Miscellaneous Information 1 ea NOTE XX ; Start 11/25/18 at 14:30 Glucose (Glutose) 15 gm Q15M PRN PO DECREASED GLUCOSE; Start 11/25/18 at 14:30 Glucose (Glutose) 22.5 gm Q15M PRN PO DECREASED GLUCOSE; Start 11/25/18 at 14:3 0 Dextrose (D50w Syringe) 25 ml Q15M PRN IV DECREASED GLUCOSE; Start 11/25/18 at 14:30 Dextrose (D50w Syringe) 50 ml Q15M PRN IV DECREASED GLUCOSE; Start 11/25/18 at 14:30 Glucagon (Glucagen) 1 mg Q15M PRN IM DECREASED GLUCOSE; Start 11/25/18 at 14:30 Glucose (Glutose) 15 gm Q15M PRN BUCCAL DECREASED GLUCOSE; Start 11/25/18 at 14:30 Budesonide (Pulmicort (Neb)) 0.5 mg BID RESP THERAPY HHN Last administered on 12/03/18at 08:01; Admin Dose 0.5 MG; Start 11/26/18 at 09:00 IV Flush (NS 10 ml) 10 ml PRN PRN IV IV PROTOCOL; Start 11/26/18 at 14:00 Metoprolol Tartrate (Lopressor) 5 mg Q4H PRN IV HR>110 Hold SBP<100 Last administered on 11/29/18at 17:20; Admin Dose 5 MG; Start 11/26/18 at 18:00 Levothyroxine Sodium (Synthroid) 125 mcg DAILY@06 PO Last administered on 12/01/18at 06:08; Admin Dose 125 MCG; Start 11/28/18 at 06:00 Albumin Human 100 ml @ 100 mls/hr DURING DIALYSIS PRN IV HYPOTENTION DURING HD Last administered on 12/03/18at 10:51; Admin Dose 100 MLS/HR; Start 11/27/18 at 20:30 Acetaminophen (Tylenol Liquid) 650 mg Q4H PRN PO MILD PAIN(1-3)OR ELEVATED TEMP Last administered on 11/28/18 18:59; Admin Dose 650 MG; Start 11/28/18 at 16:00 Haloperidol (Haldol) 2 mg Q4 PRN IV AGITATION Last administered on 12/02/18 13:01; Admin Dose 2 MG; Start 11/29/18 at 12:00 Quetiapine Fumarate (Seroquel) 25 mg QHS PO Last administered on 11/30/18 20:24; Admin Dose 25 MG; Start 11/29/18 at 21:00 Pantoprazole (Protonix Tab) 40 mg DAILY@06 PO Last administered on 12/01/18at 06:08; Admin Dose 40 MG; Start 11/30/18 at 06:00 Dextrose/Sodium Chloride 1,000 ml @ 40 mls/hr Q24H IV Last administered on 12/02/18 21:55; Admin Dose 40 MLS/HR; Start 11/30/18 at 12:30 Metoprolol Tartrate (Lopressor) 25 mg BID PO Last administered on 12/02/18 09:23; Admin Dose 25 MG; Start 12/02/18 at 09:00 Enalaprilat (Vasotec Iv) 1.25 mg Q2H PRN IV ELEVATED SYSTOLIC BP Last administered on 12/03/18at 02:30; Admin Dose 1.25 MG; Start 12/03/18 at 00:30 Epoetin Kavon-epbx (RETACRIT(esrd)) 10,000 unit MoWeFr@1700 SC ; Start 12/03/18 at 17:00 Clonidine HCl (Catapres-Tts 2 Patch) 1 patch Q7D TRANSDERM Last administered on 12/03/18at 14:25; Admin Dose 1 PATCH; Start 12/03/18 at 13:00 Assessment/Plan Hospital Course (Demo Recall) Assessment 1. End-stage renal failure hemodialysis 2. Unremarkable MRI brain 3. Controlled atrial fibrillation 4. Diabetes mellitus Plan 1. Continue hemodialysis 2. Aspiration precautions discharge planning ? EVA LOPEZ MD, [facility] Dec 03, 2018 14:35
--- NOTE | 2018-12-03 14:36 | CONS ---
Assessment/Plan Assessment/Plan Hospital Course 78 yo F with hx of ESRD on HD and other comorbidities who presents with ams in contest of respiratory sx. She was noted to be acutely encephalopathic following HD on 11/28, for which neurology is consulted. The clinical picture suggests an acute on chronic encephalopathy A focal JINRIKISHA DRIVER process is unlikely. MRI brain was technically limited, but was otherwise without obvious acute intracranial pathology. HCT on 11/25 was the same. EEG was without obvious epileptiform activity.. ammonia wnl, TSH nl, B12 ok P: Ok to defer additional neuroimaging for now. [place] as necessary Consider seroquel hs and prn Limit other sedating medications where possible Medical management per primary Will follow clinically Consultation Date/Type/Reason Admit Date/Time Nov 25, 2018 at 13:18 Type of Consult Neurology Reason for Consultation ams Requesting Provider: GENNY SULLIVAN Date/Time of Note DATE: 12/03/18 TIME: 14:33 24 HR Interval Summary Free Text/Dictation Continues acute care. S/p MRI Exam Vital Signs Vitals Vital Signs Date Temp Pulse Resp B/P (MAP) Pulse Ox O2 O2 Flow FiO2 Time Delivery Rate 12/03/18 98.0 96 20 158/65 91 Nasal 13:47 (96) Cannula 12/03/18 2.0 13:00 Intake and Output 12/02/18 12/02/18 12/03/18 1515:00 23:00 07:00 IntakeIntake Total 480 ml 500 ml 480 ml OutputOutput Total 100 ml 20 ml BalanceBalance 380 ml 500 ml 460 ml Exam E: Gen Appearance: Calm; on 2-pt restraints HEENT: Normocephalic Cardiovascular: Regular rate Abdomen: Soft Extremities: Dry NE: The patient was awake and alert; nonverbal today; able to nod appropriately to questions. Fund of knowledge was unable to be assessed. Cranial nerve examination was limited by mental status. Pupils were equal and reactive to light. There was no afferent pupillary defect. Funduscopic examination was limited. Face was grossly symmetric, w/ present corneal and cough reflexes. Tone was normal. Muscle bulk was normal. I did not see fasciculations. The patient was spontaneously moving all extremities, symmetrically. Coordination and gait testing was limited by mental status. Arm and leg reflexes were within normal limits and symmetric. Lai's sign was absent. Plantar responses were flexor. NICHO HENDRIX NP Dec 03, 2018 14:36
[2018-12-03] MEDS: EPOETIN ALFA-EPBX (ESRD) 10,000 UNIT/ML VIAL SC SCH (17:28)
[2018-12-03] MEDS: QUETIAPINE 25 MG TAB PO SCH (21:00)
[2018-12-04] VITALS (28 sets, daily range): BP systolic 100–187; BP diastolic 60–99; PULSE 64–101; RESP 18–20
[2018-12-04] MEDS: INSULIN ASPART [NOVOLOG] 3 ML PEN SC SCH ×6 (00:50→21:00)
[2018-12-04] MEDS: DEXTROSE 5%-0.45% NACL 1,000 ML IV SCH (05:42)
[2018-12-04] MEDS: LEVOTHYROXINE 125 MCG TAB PO SCH (06:36)
[2018-12-04] MEDS: PANTOPRAZOLE (EC) 40 MG TAB PO SCH (06:36)
--- NOTE | 2018-12-04 08:31 | CONS ---
Assessment/Plan Assessment/Plan Hospital Course (Demo Recall) 78-year-old female with a history of hypertension, CHF, chronic kidney disease, diabetes mellitus, pulmonary embolism, colon cancer, status post surgery, atrial fibrillation admitted originally to [facility] for respiratory failure, transferred to [place]. At [place] pt was found to be hypotensive and transferred to [facility]. We were consulted for anemia and positive guaiac stool Interval hx: HH slightly decreased. No signs GI bleeding per RN. 1. Anemia due to the chronic gastrointestinal blood loss and also chronic disease. 2. Diabetes mellitus. 3. Thrombocytopenia. 4. Bronchial asthma. 5. Atrial fibrillation. 6. Renal failure. 7. Mildly elevated CEA at 6.6 Plan Waiting for the EGD, colonoscopy report from the other hospital and capsule endoscopy report. Per RN it was faxed yesterday. She will call us once she receives reports. Pt may need repeat colonoscopy since CEA elevated and positive FOB Pt examined and plan of care discussed with Dr. Schaffer Consultation Date/Type/Reason Admit Date/Time Nov 25, 2018 at 13:18 Initial Consult Date 11/26/18 Requesting Provider: GENNY SULLIVAN Date/Time of Note DATE: 12/04/18 TIME: 08:22 24 HR Interval Summary Free Text/Dictation Hgb slightly lower than yesterday from 9.5 to 8.8. Small BM yesterday, RN was not endorsed melena from the [employer]. Exam/Review of Systems Exam Vitals Vital Signs Date Temp Pulse Resp B/P (MAP) Pulse Ox O2 O2 Flow FiO2 Time Delivery Rate 12/04/18 98.0 95 20 166/70 98 07:54 (102) 12/04/18 Nasal 4.0 07:40 Cannula Intake and Output 12/03/18 12/03/18 12/04/18 1515:00 23:00 07:00 IntakeIntake Total 580 ml 480 ml OutputOutput Total 2500 ml 1900 ml BalanceBalance -2500 ml -1320 ml 480 ml Results Result Diagram: 12/02/18 0741 12/02/18 0741 Results 24hrs Laboratory Tests Test 12/03/18 09:20 12/03/18 14:23 12/03/18 17:22 12/03/18 20:03 Bedside Glucose 194 106 126 128 Test 12/04/18 00:38 12/04/18 05:15 Bedside Glucose 124 142 Medications Medication Current Medications Hydralazine HCl (Apresoline) 10 mg Q6H PRN IV SBP >160 Last administered on 12/03/18at 05:57; Admin Dose 10 MG; Start 11/25/18 at 14:00 Ondansetron HCl (Zofran Inj) 4 mg Q4H PRN IV NAUSEA AND/OR VOMITING Last administered on 11/29/18at 01:10; Admin Dose 4 MG; Start 11/25/18 at 14:00 Insulin Glargine (Lantus) 10 units DAILY@0800 SC Last administered on 12/03/18 09:27; Admin Dose 10 UNITS; Start 11/26/18 at 08:00 Insulin Aspart (Novolog Insulin Pen) NOVOLOG *MILD* ALGORI... Q4 SC Last administered on 12/03/18 09:28; Admin Dose 2 UNIT; Start 11/25/18 at 17:00 Albuterol/ Ipratropium (Duoneb) 3 ml Q6H RESP THERAPY PRN HHN SHORTNESS OF BREATH Last administered on 11/26/18at 20:17; Admin Dose 3 ML; Start 11/25/18 at 14:00 Acetaminophen (Tylenol Supp) [address] MILD PAIN(1-3) OR TEMP>38C Last administered on 12/02/18at 09:25; Admin Dose 650 MG; Start 11/25/18 at 14:00 Miscellaneous Information 1 ea NOTE XX ; Start 11/25/18 at 14:30 Glucose (Glutose) 15 gm Q15M PRN PO DECREASED GLUCOSE; Start 11/25/18 at 14:30 Glucose (Glutose) 22.5 gm Q15M PRN PO DECREASED GLUCOSE; Start 11/25/18 at 14:30 Dextrose (D50w Syringe) 25 ml Q15M PRN IV DECREASED GLUCOSE; Start 11/25/18 at 14:30 Dextrose (D50w Syringe) 50 ml Q15M PRN IV DECREASED GLUCOSE; Start 11/25/18 at 14:30 Glucagon (Glucagen) 1 mg Q15M PRN IM DECREASED GLUCOSE; Start 11/25/18 at 14:30 Glucose (Glutose) 15 gm Q15M PRN BUCCAL DECREASED GLUCOSE; Start 11/25/18 at 14:30 Budesonide (Pulmicort (Neb)) 0.5 mg BID RESP THERAPY HHN Last administered on 12/03/18 20:12; Admin Dose 0.5 MG; Start 11/26/18 at 09:00 IV Flush (NS 10 ml) 10 ml PRN PRN IV IV PROTOCOL; Start 11/26/18 at 14:00 Metoprolol Tartrate (Lopressor) 5 mg Q4H PRN IV HR>110 Hold SBP<100 Last administered on 11/29/18 17:20; Admin Dose 5 MG; Start 11/26/18 at 18:00 Levothyroxine Sodium (Synthroid) 125 mcg DAILY@06 PO Last administered on 12/04/18 06:36; Admin Dose 125 MCG; Start 11/28/18 at 06:00 Albumin Human 100 ml @ 100 mls/hr DURING DIALYSIS PRN IV HYPOTENTION DURING HD Last administered on 12/03/18 10:51; Admin Dose 100 MLS/HR; Start 11/27/18 at 20:30 Acetaminophen (Tylenol Liquid) 650 mg Q4H PRN PO MILD PAIN(1-3)OR ELEVATED TEMP Last administered on 11/28/18 18:59; Admin Dose 650 MG; Start 11/28/18 at 16:00 Haloperidol (Haldol) 2 mg Q4 PRN IV AGITATION Last administered on 12/02/18 13:01; Admin Dose 2 MG; Start 11/29/18 at 12:00 Quetiapine Fumarate (Seroquel) 25 mg QHS PO Last administered on 12/03/18 21:00; Admin Dose 25 MG; Start 11/29/18 at 21:00 Pantoprazole (Protonix Tab) 40 mg DAILY@06 PO Last administered on 12/04/18 06:36; Admin Dose 40 MG; Start 11/30/18 at 06:00 Dextrose/Sodium Chloride 1,000 ml @ 40 mls/hr Q24H IV Last administered on 12/04/18 05:42; Admin Dose 40 MLS/HR; Start 11/30/18 at 12:30 Metoprolol Tartrate (Lopressor) 25 mg BID PO Last administered on 12/03/18at 21:00; Admin Dose 25 MG; Start 12/02/18 at 09:00 Enalaprilat (Vasotec Iv) 1.25 mg Q2H PRN IV ELEVATED SYSTOLIC BP Last administered on 12/03/18at 02:30; Admin Dose 1.25 MG; Start 12/03/18 at 00:30 Epoetin Kavon-epbx (RETACRIT(esrd)) 10,000 unit MoWeFr@1700 SC Last administered on 12/03/18at 17:28; Admin Dose 10,000 UNIT; Start 12/03/18 at 17:00 Clonidine HCl (Catapres-Tts 2 Patch) 1 patch Q7D TRANSDERM Last administered on 12/03/18at 14:25; Admin Dose 1 PATCH; Start 12/03/18 at 13:00 SOLOMON BYRD Dec 04, 2018 08:31
[2018-12-04] MEDS: BUDESONIDE (NEB) 0.5MG/2ML AMP HHN SCH ×2 (08:38→20:20)
[2018-12-04] MEDS: INSULIN GLARGINE [LANTus] (100 UNITS/ML) SYG SC SCH (09:28)
[2018-12-04] MEDS: METOPROLOL 25 MG TAB PO SCH ×2 (09:35→21:37)
[2018-12-04] MEDS: METOPROLOL 5 MG INJ IV PRN (09:35)
--- NOTE | 2018-12-04 10:23 | PN ---
DATE: 12/04/2018 SUBJECTIVE: The patient is stable. No events overnight. The patient is scheduled for hemodialysis. OBJECTIVE: VITAL SIGNS: Blood pressure is 166/70, pulse 89, respirations 20, temperature 98.0. HEENT: Head is normocephalic. NECK: Supple. HEART: Regular rate. LUNGS: Show diminished breath sounds at the base. ABDOMEN: Soft, nontender to palpation without rebound or guarding. EXTREMITIES: Negative for clubbing, cyanosis, no edema. DERMATOLOGIC: No rashes. MUSCULOSKELETAL: No joint effusion. NEUROLOGIC: No change in exam. MEDICATIONS: Reviewed. LABORATORY DATA: Has been reviewed. ASSESSMENT AND PLAN: 1. Oliguric acute kidney injury on top of CKD stage IV with previous baseline creatinine of 3.0 mg p er deciliter. Etiology of OMAR is secondary to acute tubular necrosis due to hemodynamics and sepsis. The patient is currently on hemodialysis. Will continue intermittent dialysis. Monitor for any si gns of renal recovery. 2. Anemia. Etiology is multifactorial secondary to chronic kidney disease and iron deficiency. The patient is currently on IV iron. Will continue. Continue Epogen. Monitor hemoglobin and hematocri t levels. 3. Mineral bone disorder, monitor calcium and phosphorus levels. 4. Encephalopathy, etiology is toxic metabolic, improving. Continue to monitor. 5. Coronary artery disease. Continue medical management. 6. Diabetes. Continue current insulin regimen. 7. Hypothyroidism. Continue Synthroid. 8. History of atrial fibrillation. Continue medical management. 9. Thrombocytopenia. Continue to monitor. 10. Hypertension. Continue current blood pressure regimen. Continue ultrafiltration with hemodialy sis. Dictated By: SUSY CISNEROS DO NR/NTS Conf#: [id number] DID#: [id number] CC: EVA LOPEZ MD; NEREIDA MCQUEEN MD;*EndCC*
--- NOTE | 2018-12-04 10:59 | CONS ---
Consult Date/Type/Reason Admit Date/Time Nov 25, 2018 at 13:18 Initial Consult Date 11/26/18 Requesting Provider: GENNY SULLIVAN Date/Time of Note DATE: 12/04/18 TIME: 10:57 Subjective More alert - in better status now - no CP - no focal ectopy on tele -still confused ROS: No fever, no chills, no nausea, no vomiting, no diarrhea/constipation - per nurse Objective Vitals Vital Signs Date Temp Pulse Resp B/P (MAP) Pulse Ox O2 O2 Flow FiO2 Time Delivery Rate 12/04/18 5.0 08:42 12/04/18 89 20 93 Nasal 08:42 Cannula 12/04/18 98.0 166/70 07:54 (102) Intake and Output 12/03/18 12/03/18 12/04/18 1515:00 23:00 07:00 IntakeIntake Total 580 ml 480 ml OutputOutput Total 2500 ml 1900 ml BalanceBalance -2500 ml -1320 ml 480 ml Exam General: WN/WD/NAD, AOx confused, but eyes open and less agitted HEENT: Unicetric/atraumatic/EOMI (does not follow commands) NECK: JVD elevated, no thyromegaly Lymph: no lymphadenopathy HEART: regular with no S3, II/ systolic murmur at apex, PMI L LUNGS: Coarse sounds ABD: soft, NT, ND, +BS : Intact Neuro: non focal, restraints SKIN: chronic changes EXT: trace edema Results/Medications Result Diagram: 12/02/18 0741 12/02/18 0741 Results 24 hrs Laboratory Tests Test 12/03/18 14:23 12/03/18 17:22 12/03/18 20:03 12/04/18 00:38 Bedside Glucose 106 126 128 124 Test 12/04/18 05:15 12/04/18 09:20 12/04/18 10:44 Bedside Glucose 142 210 White Blood Count Pending Red Blood Count Pending Hemoglobin Pending Hematocrit Pending Mean Corpuscular Pending Volume Mean Corpuscular Pending Hemoglobin Mean Corpuscular Pending Hemoglobin Concent Red Cell Pending Distribution Width Platelet Count Pending Mean Platelet Volume Pending Home Meds Reported Medications Alprazolam* (Alprazolam*) 0.25 Mg Tablet, 0.25 MG PO NEEDED PRN for ANXIETY, TAB 11/26/18 Magnesium Oxide* (Mag-Oxide*) 400 Mg Tablet, 400 MG PO BID, TAB 11/26/18 Losartan Potassium* (Losartan Potassium*) 50 Mg Tablet, 50 MG PO BID PRN for NEEDED, TAB 11/26/18 Atorvastatin Calcium* (Atorvastatin Calcium*) 20 Mg Tablet, 20 MG PO QHS, #30 TAB 11/26/18 Potassium Chloride* (Potassium Chloride*) 8 Meq Capsule.er, 8 MEQ PO DAILY, CAP 11/26/18 Dronedarone Hydrochloride* (Multaq*) 400 Mg Tablet, 400 MG PO BID, TAB 11/26/18 Insulin Aspart (Novolog) 100 Unit/1 Ml Cartridge, 8 UNIT SQ AC BREAKFAST DINNER 11/26/18 Clopidogrel Bisulfate* (Clopidogrel Bisulfate*) 75 Mg Tablet, 75 MG PO DAILY, #30 TAB 11/26/18 Carvedilol* (Carvedilol*) 3.125 Mg Tablet, 3.125 MG PO BID, #60 TAB 11/26/18 Gabapentin* (Gabapentin*) 300 Mg Capsule, 300 MG PO DAILY, #60 CAP NEEDED 11/26/18 Aspirin* (Aspirin* EC) 81 Mg Tablet.dr, 81 MG PO DAILY, TAB 11/26/18 Amlodipine Besylate* (Amlodipine Besylate*) 10 Mg Tablet, 10 MG PO DAILY, #30 TAB TAKE NEEDED 11/26/18 Famotidine* (Famotidine*) 20 Mg Tablet, 20 MG PO BID, #30 TAB 11/26/18 Furosemide* (Furosemide*) 40 Mg Tablet, 40 MG PO BID, TAB 11/26/18 Levothyroxine Sodium* (Levothyroxine Sodium*) 125 Mcg Tablet, 125 MCG PO BEFORE BREAKFAST, #30 TAB 11/26/18 Bisacodyl (Ducodyl) 5 Mg Tablet.dr, 5 MG PO NEEDED 11/26/18 Ergocalciferol (Vitamin D2) (VITAMIN D2) 50,000 Unit Capsule, 41551 UNIT PO Q SAT, CAP 11/26/18 Lisinopril* (Lisinopril*) 5 Mg Tablet, 5 MG PO DAILY, #30 TAB TAKE NEEDED 11/26/18 Clonidine Hcl* (Clonidine Hcl*) 0.2 Mg Tablet, 0.2 MG PO BID PRN for HTN, TAB 11/26/18 Clonidine Patch (CLONIDINE PATCH) 0.2 Mg/24 Hr Patch, 1 PATCH.WK TD Q7D, #4 PATCH.WK 11/26/18 Hydralazine Hcl* (Apresoline*) 50 Mg Tab, 50 MG PO BID PRN for HTN, #60 TAB TAKE NEEDED 11/26/18 Insulin Glargine,Hum.rec.anlog (Basaglar Kwikpen U-100) 100 Unit/1 Ml Insuln.pen, 40 UNIT SC QHS, EA 11/26/18 Docusate Sodium* (Colace*) 250 Mg Capsule, 250 MG PO BID, #60 CAP 11/26/18 Ferrous Sulfate* (Ferrous Sulfate*) 325 Mg Tabec, 325 MG PO BID, TAB 11/26/18 Medications Current Medications Hydralazine HCl (Apresoline) 10 mg Q6H PRN IV SBP >160 Last administered on 12/03/18at 05:57; Admin Dose 10 MG; Start 11/25/18 at 14:00 Ondansetron HCl (Zofran Inj) 4 mg Q4H PRN IV NAUSEA AND/OR VOMITING Last administered on 11/29/18at 01:10; Admin Dose 4 MG; Start 11/25/18 at 14:00 Insulin Glargine (Lantus) 10 units DAILY@0800 SC Last administered on 12/04/18at 09:28; Admin Dose 10 UNITS; Start 11/26/18 at 08:00 Insulin Aspart (Novolog Insulin Pen) NOVOLOG *MILD* ALGORI... Q4 SC Last administered on 12/04/18at 09:27; Admin Dose 2 UNIT; Start 11/25/18 at 17:00 Albuterol/ Ipratropium (Duoneb) 3 ml Q6H RESP THERAPY PRN HHN SHORTNESS OF BREATH Last administered on 11/26/18at 20:17; Admin Dose 3 ML; Start 11/25/18 at 14:00 Acetaminophen (Tylenol Supp) 650 mg Q4H PRN [place] MILD PAIN(1-3) OR TEMP>38C Last administered on 12/02/18at 09:25; Admin Dose 650 MG; Start 11/25/18 at 14:00 Miscellaneous Information 1 ea NOTE XX ; Start 11/25/18 at 14:30 Glucose (Glutose) 15 gm Q15M PRN PO DECREASED GLUCOSE; Start 11/25/18 at 14:30 Glucose (Glutose) 22.5 gm Q15M PRN PO DECREASED GLUCOSE; Start 11/25/18 at 14:30 Dextrose (D50w Syringe) 25 ml Q15M PRN IV DECREASED GLUCOSE; Start 11/25/18 at 14:30 Dextrose (D50w Syringe) 50 ml Q15M PRN IV DECREASED GLUCOSE; Start 11/25/18 at 14:30 Glucagon (Glucagen) 1 mg Q15M PRN IM DECREASED GLUCOSE; Start 11/25/18 at 14:30 Glucose (Glutose) 15 gm Q15M PRN BUCCAL DECREASED GLUCOSE; Start 11/25/18 at 14:30 Budesonide (Pulmicort (Neb)) 0.5 mg BID RESP THERAPY HHN Last administered on 12/04/18at 08:38; Admin Dose 0.5 MG; Start 11/26/18 at 09:00 IV Flush (NS 10 ml) 10 ml PRN PRN IV IV PROTOCOL; Start 11/26/18 at 14:00 Metoprolol Tartrate (Lopressor) 5 mg Q4H PRN IV HR>110 Hold SBP<100 Last a dministered on 12/04/18at 09:35; Admin Dose 5 MG; Start 11/26/18 at 18:00 Levothyroxine Sodium (Synthroid) 125 mcg DAILY@06 PO Last administered on 12/04/18 06:36; Admin Dose 125 MCG; Start 11/28/18 at 06:00 Albumin Human 100 ml @ 100 mls/hr DURING DIALYSIS PRN IV HYPOTENTION DURING HD Last administered on 12/03/18at 10:51; Admin Dose 100 MLS/HR; Start 11/27/18 at 20:30 Acetaminophen (Tylenol Liquid) 650 mg Q4H PRN PO MILD PAIN(1-3)OR ELEVATED TEMP Last administered on 11/28/18at 18:59; Admin Dose 650 MG; Start 11/28/18 at 16:00 Haloperidol (Haldol) 2 mg Q4 PRN IV AGITATION Last administered on 12/02/18at 13:01; Admin Dose 2 MG; Start 11/29/18 at 12:00 Quetiapine Fumarate (Seroquel) 25 mg QHS PO Last administered on 12/03/18 21:00; Admin Dose 25 MG; Start 11/29/18 at 21:00 Pantoprazole (Protonix Tab) 40 mg DAILY@06 PO Last administered on 12/04/18 06:36; Admin Dose 40 MG; Start 11/30/18 at 06:00 Dextrose/Sodium Chloride 1,000 ml @ 40 mls/hr Q24H IV Last administered on 12/04/18 05:42; Admin Dose 40 MLS/HR; Start 11/30/18 at 12:30 Metoprolol Tartrate (Lopressor) 25 mg BID PO Last administered on 12/04/18 09:35; Admin Dose 25 MG; Start 12/02/18 at 09:00 Enalaprilat (Vasotec Iv) 1.25 mg Q2H PRN IV ELEVATED SYSTOLIC BP Last administered on 12/03/18 02:30; Admin Dose 1.25 MG; Start 12/03/18 at 00:30 Epoetin Kavon-epbx (RETACRIT(esrd)) 10,000 unit MoWeFr@1700 SC Last administered on 12/03/18 17:28; Admin Dose 10,000 UNIT; Start 12/03/18 at 17:00 Clonidine HCl (Catapres-Tts 2 Patch) 1 patch Q7D TRANSDERM Last administered on 12/03/18 14:25; Admin Dose 1 PATCH; Start 12/03/18 at 13:00 Assessment/Plan Hospital Course (Demo Recall) 1. Hypotension, borderline, not on pressure support at this time - stable now - con't to follow - HD now, tolerated HD well - labile - luis Rx with renal team - labile - Rx with renal team. 2. Atrial fibrillation, primarily rate controlled off of antihypertensives at this time - not anti-coag now r/o GIB and decreased H/H - stable now - rate controlled - satble now. . 3. Anemia, worsening with guaiac positive stool consistent with gastrointestinal bleed - H/H satbe 4. Diabetes mellitus. 5. Acute on chronic renal failure, being initiated on hemodialysis - HD to follow. 6. Altered mental state- unchanged 7. Diastolic congestive heart failure due to a preserved EF by most recent echo and findings by chest x-ray - remove fluid with HD. 8. History of coronary artery disease, nonobstructive by outside hospital catheterization - no intervention planned now. 9. Shortness of breath with hypothyroidism. 10. Diabetes mellitus - on meds, keep euglycemic ALFRED PEPE MD Dec 04, 2018 10:59
[2018-12-04] MEDS: hydrALAzine 20 MG INJ IV PRN (13:26)
--- NOTE | 2018-12-04 14:40 | CONS ---
Assessment/Plan Assessment/Plan Hospital Course 78 yo F with hx of ESRD on HD and other comorbidities who presents with ams in contest of respiratory sx. She was noted to be acutely encephalopathic following HD on 11/28, for which neurology is consulted. The clinical picture suggests an acute on chronic encephalopathy A focal [employer] process is unlikely. MRI brain was technically limited, but was otherwise without obvious acute intracranial pathology. HCT on 11/25 was the same. EEG was without obvious epileptiform activity.. ammonia wnl, TSH nl, B12 ok P: Ok to defer additional neuroimaging for now. [place] as necessary Consider seroquel hs and prn Limit other sedating medications where possible Medical management per primary Will follow clinically Consultation Date/Type/Reason Admit Date/Time Nov 25, 2018 at 13:18 Type of Consult Neurology Reason for Consultation ams Requesting Provider: GENNY SULLIVAN Date/Time of Note DATE: 12/04/18 TIME: 14:39 24 HR Interval Summary Free Text/Dictation Continues acute care. Exam Vital Signs Vitals Vital Signs Date Temp Pulse Resp B/P (MAP) Pulse Ox O2 O2 Flow FiO2 Time Delivery Rate 12/04/18 18 186/79 99 Room Air 5.0 13:15 (114) Nasal Cannula 12/04/18 89 13:00 12/04/18 98.0 12:04 Intake and Output 12/03/18 12/03/18 12/04/18 1414:59 22:59 06:59 IntakeIntake Total 580 ml 480 ml OutputOutput Total 2500 ml 1900 ml BalanceBalance -2500 ml -1320 ml 480 ml Exam PE: Gen Appearance: Calm; on 2-pt restraints HEENT: Normocephalic Cardiovascular: Regular rate Abdomen: Soft Extremities: Dry NE: The patient was awake and alert; nonverbal today; able to nod appropriately to questions. Fund of knowledge was unable to be assessed. Cranial nerve examination was limited by mental status. Pupils were equal and reactive to light. There was no afferent pupillary defect. Funduscopic examination was limited. Face was grossly symmetric, w/ present corneal and cough reflexes. Tone was normal. Muscle bulk was normal. I did not see fasciculations. The patient was spontaneously moving all extremities, symmetrically. Coordination and gait testing was limited by mental status. Arm and leg reflexes were within normal limits and symmetric. Lai's sign was absent. Plantar responses were flexor. NICHO HENDRIX NP Dec 04, 2018 14:40
--- NOTE | 2018-12-04 15:54 | CONS ---
Consult Date/Type/Reason Admit Date/Time Nov 25, 2018 at 13:18 Initial Consult Date 11/26/18 Type of Consult Pulmonary Requesting Provider: GENNY SULLIVAN Date/Time of Note DATE: 12/04/18 TIME: 15:45 Subjective Still confused otherwise stable. Objective Vital Signs Date Temp Pulse Resp B/P (MAP) Pulse Ox O2 O2 Flow FiO2 Time Delivery Rate 12/04/18 97.7 64 20 146/79 98 Nasal 4.0 14:00 (101) Cannula Intake and Output 12/03/18 12/03/18 12/04/18 1515:00 23:00 07:00 IntakeIntake Total 580 ml 480 ml OutputOutput Total 2500 ml 1900 ml BalanceBalance -2500 ml -1320 ml 480 ml Exam GENERAL: Elderly Telugu lady comfortable at rest VITAL SIGNS: per chart NECK: Supple. No JVD or lymphadenopathy. CARDIAC EXAM: S1, S2. No added sounds or murmurs. CHEST: clear bilaterally, No added sounds, rales or wheezes ABDOMEN: Soft, nontender. No guarding or rebound. EXTREMITIES: No cyanosis, clubbing or edema. NEUROLOGIC: Generalized weakness. Vent Setting Fraction of Inspired Oxygen pe: 27 Results/Medications Result Diagram: 12/04/18 1044 12/04/18 1044 Results 24 hrs Laboratory Tests Test 12/03/18 17:22 12/03/18 20:03 12/04/18 00:38 12/04/18 05:15 Bedside Glucose 126 128 124 142 Test 12/04/18 09:20 12/04/18 10:44 12/04/18 12:48 Bedside Glucose 210 102 White Blood Count 8.5 Red Blood Count 2.95 L Hemoglobin 8.7 L Hematocrit 28.0 L Mean Corpuscular 94.9 Volume Mean Corpuscular 29.5 Hemoglobin Mean Corpuscular 31.1 L Hemoglobin Concent Red Cell 16.2 H Distribution Width Platelet Count 114 L Mean Platelet Volume 10.8 H Immature 2.100 H Granulocytes % Neutrophils % 84.9 H Lymphocytes % 6.9 L Monocytes % 5.1 Eosinophils % 0.6 Basophils % 0.4 Nucleated Red Blood 0.0 Cells % Immature 0.180 H Granulocytes # Neutrophils # 7.2 Lymphocytes # 0.6 L Monocytes # 0.4 Eosinophils # 0.1 Basophils # 0.0 Nucleated Red Blood 0.0 Cells # Sodium Level 141 Potassium Level 3.6 Chloride Level 102 Carbon Dioxide Level 28 Anion Gap 11 Blood Urea Nitrogen 19 Creatinine 3.10 H Est Glomerular Filtrat Rate mL/min Glucose Level 135 Calcium Level 8.7 Medications Current Medications Hydralazine HCl (Apresoline) 10 mg Q6H PRN IV SBP >160 Last administered on 12/04/18 13:26; Admin Dose 10 MG; Start 11/25/18 at 14:00 Ondansetron HCl (Zofran Inj) 4 mg Q4H PRN IV NAUSEA AND/OR VOMITING Last administered on 11/29/18 01:10; Admin Dose 4 MG; Start 11/25/18 at 14:00 Insulin Glargine (Lantus) 10 units DAILY@0800 SC Last administered on 12/04/18 09:28; Admin Dose 10 UNITS; Start 11/26/18 at 08:00 Insulin Aspart (Novolog Insulin Pen) NOVOLOG *MILD* ALGORI... Q4 SC Last administered on 12/04/18at 09:27; Admin Dose 2 UNIT; Start 11/25/18 at 17:00 Albuterol/ Ipratropium (Duoneb) 3 ml Q6H RESP THERAPY PRN HHN SHORTNESS OF BREATH Last administered on 11/26/18at 20:17; Admin Dose 3 ML; Start 11/25/18 at 14:00 Acetaminophen (Tylenol Supp) 650 mg Q4H PRN [place] MILD PAIN(1-3) OR TEMP>38C Last administered on 12/02/18at 09:25; Admin Dose 650 MG; Start 11/25/18 at 14:00 Miscellaneous Information 1 ea NOTE XX ; Start 11/25/18 at 14:30 Glucose (Glutose) 15 gm Q15M PRN PO DECREASED GLUCOSE; Start 11/25/18 at 14:30 Glucose (Glutose) 22.5 gm Q15M PRN PO DECREASED GLUCOSE; Start 11/25/18 at 14:30 Dextrose (D50w Syringe) 25 ml Q15M PRN IV DECREASED GLUCOSE; Start 11/25/18 at 14:30 Dextrose (D50w Syringe) 50 ml Q15M PRN IV DECREASED GLUCOSE; Start 11/25/18 at 14:30 Glucagon (Glucagen) 1 mg Q15M PRN IM DECREASED GLUCOSE; Start 11/25/18 at 14:30 Glucose (Glutose) 15 gm Q15M PRN BUCCAL DECREASED GLUCOSE; Start 11/25/18 at 14:30 Budesonide (Pulmicort (Neb)) 0.5 mg BID RESP THERAPY HHN Last administered on 12/04/18 08:38; Admin Dose 0.5 MG; Start 11/26/18 at 09:00 IV Flush (NS 10 ml) 10 ml PRN PRN IV IV PROTOCOL; Start 11/26/18 at 14:00 Metoprolol Tartrate (Lopressor) 5 mg Q4H PRN IV HR>110 Hold SBP<100 Last administered on 12/04/18 09:35; Admin Dose 5 MG; Start 11/26/18 at 18:00 Levothyroxine Sodium (Synthroid) 125 mcg DAILY@06 PO Last administered on 12/04/18 06:36; Admin Dose 125 MCG; Start 11/28/18 at 06:00 Albumin Human 100 ml @ 100 mls/hr DURING DIALYSIS PRN IV HYPOTENTION DURING HD Last administered on 12/03/18 10:51; Admin Dose 100 MLS/HR; Start 11/27/18 at 20:30 Acetaminophen (Tylenol Liquid) 650 mg Q4H PRN PO MILD PAIN(1-3)OR ELEVATED TEMP Last administered on 11/28/18 18:59; Admin Dose 650 MG; Start 11/28/18 at 16:00 Haloperidol (Haldol) 2 mg Q4 PRN IV AGITATION Last administered on 12/02/18 13:01; Admin Dose 2 MG; Start 11/29/18 at 12:00 Quetiapine Fumarate (Seroquel) 25 mg QHS PO Last administered on 12/03/18 21:00; Admin Dose 25 MG; Start 11/29/18 at 21:00 Pantoprazole (Protonix Tab) 40 mg DAILY@06 PO Last administered on 12/04/18 06:36; Admin Dose 40 MG; Start 11/30/18 at 06:00 Dextrose/Sodium Chloride 1,000 ml @ 40 mls/hr Q24H IV Last administered on 12/04/18 05:42; Admin Dose 40 MLS/HR; Start 11/30/18 at 12:30 Metoprolol Tartrate (Lopressor) 25 mg BID PO Last administered on 12/04/18at 09:35; Admin Dose 25 MG; Start 12/02/18 at 09:00 Enalaprilat (Vasotec Iv) 1.25 mg Q2H PRN IV ELEVATED SYSTOLIC BP Last administe red on 12/03/18at 02:30; Admin Dose 1.25 MG; Start 12/03/18 at 00:30 Epoetin Kavon-epbx (RETACRIT(esrd)) 10,000 unit MoWeFr@1700 SC Last administered on 12/03/18at 17:28; Admin Dose 10,000 UNIT; Start 12/03/18 at 17:00 Clonidine HCl (Catapres-Tts 2 Patch) 1 patch Q7D TRANSDERM Last administered on 12/03/18at 14:25; Admin Dose 1 PATCH; Start 12/03/18 at 13:00 Assessment/Plan Hospital Course (Demo Recall) Assessment 1. End-stage renal failure hemodialysis 2. Unremarkable MRI brain 3. Controlled atrial fibrillation 4. Diabetes mellitus Plan 1. Continue hemodialysis 2. Aspiration precautions 3. GI recs 4. Vent support. EVA LOPEZ MD, [facility] Dec 04, 2018 15:54
--- NOTE | 2018-12-04 18:45 | PN ---
Date/Time of Note Date/Time of Note DATE: 12/04/18 TIME: 18:44 Assessment/Plan VTE Prophylaxis Risk score (from [facility] [place]0 risk: 9 SCD applied (from [facility] [place]): Yes SCD contraindicated: other Pharmacological prophylaxis: other Pharm contraindication: other Lines/Catheters IV C[facility]ter Type (from [facility] trialysis cath Urinary Cath still in place: Yes Reason Cath still needed: urinary retention Assessment/Plan Assessment/Plan 1. Oliguric acute kidney injury on top of chronic kidney disease stage IV with previous baseline creatinine around 2.0 mg/dL. Etiology of acute kidney injury was secondary to acute tubular necrosis due to hemodynamic sepsis. \ - HD per Nephrology -on case 2. Anemia, etiology is multifactorial secondary to chronic kidney disease, iron deficiency, questionable GI bleed. Patient is currently on IV iron on Epogen. - Continue to monitor CBC - Continue PPI. - per GI 3. Mineral bone disorder. Monitor calcium and phosphorus levels. 4. Encephalopathy. Etiology is toxic metabolic, possibly uremic. Continue to monitor. 5. Coronary artery disease. Continue medical management. 6. Diabetes. - Continue current insulin regimen. 7. Hypothyroidism. Continue Synthroid. 8. History of asthma. Continue current treatment plan. 9. History of atrial fibrillation. 10. Thrombocytopenia. Continue to monitor. 11. Hypertension. Blood pressure controlled. Plan of care discussed with Dr. Lind. Result Diagram: 12/04/18 1044 12/04/18 1044 Results 24hrs Laboratory Tests Test 12/03/18 20:03 12/04/18 00:38 12/04/18 05:15 12/04/18 09:20 Bedside Glucose 128 124 142 210 Test 12/04/18 10:44 12/04/18 12:48 12/04/18 17:37 White Blood Count 8.5 Red Blood Count 2.95 L Hemoglobin 8.7 L Hematocrit 28.0 L Mean Corpuscular 94.9 Volume Mean Corpuscular 29.5 Hemoglobin Mean Corpuscular 31.1 L Hemoglobin Concent Red Cell 16.2 H Distribution Width Platelet Count 114 L Mean Platelet Volume 10.8 H Immature 2.100 H Granulocytes % Neutrophils % 84.9 H Lymphocytes % 6.9 L Monocytes % 5.1 Eosinophils % 0.6 Basophils % 0.4 Nucleated Red Blood 0.0 Cells % Immature 0.180 H Granulocytes # Neutrophils # 7.2 Lymphocytes # 0.6 L Monocytes # 0.4 Eosinophils # 0.1 Basophils # 0.0 Nucleated Red Blood 0.0 Cells # Sodium Level 141 Potassium Level 3.6 Chloride Level 102 Carbon Dioxide Level 28 Anion Gap 11 Blood Urea Nitrogen 19 Creatinine 3.10 H Est Glomerular Filtrat Rate mL/min Glucose Level 135 Calcium Level 8.7 Bedside Glucose 102 153 Subjective 24 Hr Interval Summary Free Text/Dictation NAD Afebrile; confused; stable; HD today no new events reported last night Constitutional: requiring O2 Respiratory: no complaints Cardiovascular: no complaints Gastrointestinal: no complaints Musculoskeletal: bone/joint pain, restricted range of motion Exam/Review of Systems Exam Vitals Vital Signs Date Temp Pulse Resp B/P (MAP) Pulse Ox O2 O2 Flow FiO2 Time Delivery Rate 12/04/18 97.5 88 18 140/60 96 Nasal 4.0 17:59 (86) Cannula Intake and Output 12/03/18 12/03/18 12/04/18 1515:00 23:00 07:00 IntakeIntake Total 580 ml 480 ml OutputOutput Total 2500 ml 1900 ml BalanceBalance -2500 ml -1320 ml 480 ml Constitutional: alert, well developed Psych: nl mood/affect Head: normocephalic Eyes: nl lids, nl sclera ENMT: nl external ears & nose Neck: non-tender Respiratory: clear to auscultation Cardiovascular: nl pulses, other (s1s2) Gastrointestinal: soft, non-tender Musculoskeletal: nl extremities to inspection Extremities: normal pulses Neurological: nl speech, confused, other (alert/responsive) Lymph: nontender Results Results 24hrs Laboratory Tests Test 12/03/18 20:03 12/04/18 00:38 12/04/18 05:15 12/04/18 09:20 Bedside Glucose 128 124 142 210 Test 12/04/18 10:44 12/04/18 12:48 12/04/18 17:37 White Blood Count 8.5 Red Blood Count 2.95 L Hemoglobin 8.7 L Hematocrit 28.0 L Mean Corpuscular 94.9 Volume Mean Corpuscular 29.5 Hemoglobin Mean Corpuscular 31.1 L Hemoglobin Concent Red Cell 16.2 H Distribution Width Platelet Count 114 L Mean Platelet Volume 10.8 H Immature 2.100 H Granulocytes % Neutrophils % 84.9 H Lymphocytes % 6.9 L Monocytes % 5.1 Eosinophils % 0.6 Basophils % 0.4 Nucleated Red Blood 0.0 Cells % Immature 0.180 H Granulocytes # Neutrophils # 7.2 Lymphocytes # 0.6 L Monocytes # 0.4 Eosinophils # 0.1 Basophils # 0.0 Nucleated Red Blood 0.0 Cells # Sodium Level 141 Potassium Level 3.6 Chloride Level 102 Carbon Dioxide Level 28 Anion Gap 11 Blood Urea Nitrogen 19 Creatinine 3.10 H Est Glomerular Filtrat Rate mL/min Glucose Level 135 Calcium Level 8.7 Bedside Glucose 102 153 Medications Medication Current Medications Hydralazine HCl (Apresoline) 10 mg Q6H PRN IV SBP >160 Last administered on 12/04/18 13:26; Admin Dose 10 MG; Start 11/25/18 at 14:00 Ondansetron HCl (Zofran Inj) 4 mg Q4H PRN IV NAUSEA AND/OR VOMITING Last administered on 11/29/18 01:10; Admin Dose 4 MG; Start 11/25/18 at 14:00 Insulin Glargine (Lantus) 10 units DAILY@0800 SC Last administered on 12/04/18 09:28; Admin Dose 10 UNITS; Start 11/26/18 at 08:00 Insulin Aspart (Novolog Insulin Pen) NOVOLOG *MILD* ALGORI... Q4 SC Last administered on 12/04/18 17:42; Admin Dose 1 UNIT; Start 11/25/18 at 17:00 Albuterol/ Ipratropium (Duoneb) 3 ml Q6H RESP THERAPY PRN HHN SHORTNESS OF BREATH Last administered on 11/26/18 20:17; Admin Dose 3 ML; Start 11/25/18 at 14:00 Acetaminophen (Tylenol Supp) 650 mg Q4H PRN UT MILD PAIN(1-3) OR TEMP>38C Last administered on 12/02/18 09:25; Admin Dose 650 MG; Start 11/25/18 at 14:00 Miscellaneous Information 1 ea NOTE XX ; Start 11/25/18 at 14:30 Glucose (Glutose) 15 gm Q15M PRN PO DECREASED GLUCOSE; Start 11/25/18 at 14:30 Glucose (Glutose) 22.5 gm Q15M PRN PO DECREASED GLUCOSE; Start 11/25/18 at 14:30 Dextrose (D50w Syringe) 25 ml Q15M PRN IV DECREASED GLUCOSE; Start 11/25/18 at 14:30 Dextrose (D50w Syringe) 50 ml Q15M PRN IV DECREASED GLUCOSE; Start 11/25/18 at 14:30 Glucagon (Glucagen) 1 mg Q15M PRN IM DECREASED GLUCOSE; Start 11/25/18 at 14:30 Glucose (Glutose) 15 gm Q15M PRN BUCCAL DECREASED GLUCOSE; Start 11/25/18 at 14:30 Budesonide (Pulmicort (Neb)) 0.5 mg BID RESP THERAPY HHN Last administered on 12/04/18 08:38; Admin Dose 0.5 MG; Start 11/26/18 at 09:00 IV Flush (NS 10 ml) 10 ml PRN PRN IV IV PROTOCOL; Start 11/26/18 at 14:00 Metoprolol Tartrate (Lopressor) 5 mg Q4H PRN IV HR>110 Hold SBP<100 Last administered on 12/04/18 09:35; Admin Dose 5 MG; Start 11/26/18 at 18:00 Levothyroxine Sodium (Synthroid) 125 mcg DAILY@06 PO Last administered on 12/04/18 06:36; Admin Dose 125 MCG; Start 11/28/18 at 06:00 Albumin Human 100 ml @ 100 mls/hr DURING DIALYSIS PRN IV HYPOTENTION DURING HD Last administered on 12/03/18 10:51; Admin Dose 100 MLS/HR; Start 11/27/18 at 20:30 Acetaminophen (Tylenol Liquid) 650 mg Q4H PRN PO MILD PAIN(1-3)OR ELEVATED TEMP Last administered on 11/28/18 18:59; Admin Dose 650 MG; Start 11/28/18 at 16:00 Haloperidol (Haldol) 2 mg Q4 PRN IV AGITATION Last administered on 12/02/18 13:01; Admin Dose 2 MG; Start 11/29/18 at 12:00 Quetiapine Fumarate (Seroquel) 25 mg QHS PO Last administered on 12/03/18 21:00; Admin Dose 25 MG; Start 11/29/18 at 21:00 Pantoprazole (Protonix Tab) 40 mg DAILY@06 PO Last administered on 12/04/18 06:36; Admin Dose 40 MG; Start 11/30/18 at 06:00 Dextrose/Sodium Chloride 1,000 ml @ 40 mls/hr Q24H IV Last administered on 11/13 05:42; Admin Dose 40 MLS/HR; Start 11/30/18 at 12:30 Metoprolol Tartrate (Lopressor) 25 mg BID PO Last administered on 12/04/18 09:35; Admin Dose 25 MG; Start 12/02/18 at 09:00 Enalaprilat (Vasotec Iv) 1.25 mg Q2H PRN IV ELEVATED SYSTOLIC BP Last administered on 12/03/18 02:30; Admin Dose 1.25 MG; Start 12/03/18 at 00:30 Epoetin Kavon-epbx (RETACRIT(esrd)) 10,000 unit MoWeFr@1700 SC Last administered on 12/03/18 17:28; Admin Dose 10,000 UNIT; Start 12/03/18 at 17:00 Clonidine HCl (Catapres-Tts 2 Patch) 1 patch Q7D TRANSDERM Last administered on 12/03/18 14:25; Admin Dose 1 PATCH; Start 12/03/18 at 13:00 JODI HANSON Dec 04, 2018 18:45
[2018-12-04] MEDS: QUETIAPINE 25 MG TAB PO SCH (21:37)
[2018-12-05] VITALS (15 sets, daily range): BP systolic 100–145; BP diastolic 54–75; PULSE 63–93; RESP 18–22
[2018-12-05] MEDS: INSULIN ASPART [NOVOLOG] 3 ML PEN SC SCH ×6 (01:54→20:57)
[2018-12-05] MEDS: LEVOTHYROXINE 125 MCG TAB PO SCH (06:00)
[2018-12-05] MEDS: PANTOPRAZOLE (EC) 40 MG TAB PO SCH (06:00)
[2018-12-05] MEDS: METOPROLOL 25 MG TAB PO SCH ×3 (08:44→20:50)
[2018-12-05] MEDS: INSULIN GLARGINE [LANTus] (100 UNITS/ML) SYG SC SCH (09:06)
--- NOTE | 2018-12-05 09:49 | PN ---
DATE: 12/05/2018 SUBJECTIVE: The patient had hemodialysis yesterday, tolerated well. No other events noted. OBJECTIVE: VITAL SIGNS: Blood pressure is 123/56, respirations 20, pulse 79, temperature 98.5. HEENT: Head is normocephalic. NECK: Supple. HEART: Regular rate. LUNGS: Show diminished breath sounds at the base. ABDOMEN: Soft, nontender to palpation without rebound or guarding. EXTREMITIES: Negative for clubbing, cyanosis, no edema. DERMATOLOGIC: No rashes. MUSCULOSKELETAL: No joint effusion. NEUROLOGIC: No change in exam. MEDICATIONS: Reviewed. LABORATORY DATA: Reviewed. ASSESSMENT AND PLAN: 1. Oliguric acute kidney injury on top of chronic kidney disease stage IV with previous baseline cre atinine of 3.0 mg/dL. Etiology of acute kidney injury is secondary to acute tubular necrosis. The p atient is currently dialysis dependent. There are no signs of renal recovery. The patient may now h ave progressed towards end-stage renal disease. We will continue intermittent hemodialysis. Monitor renal function closely. If there is no significant improvement in renal function, we will proceed f or Perm-A-Cath placement. 2. Anemia, etiology is multifactorial secondary to chronic kidney disease and iron deficiency. The patient is completing course of IV iron, continue to monitor. Continue Epogen. 3. Mineral bone disorder, monitor calcium and phosphorus levels. 4. Encephalopathy, etiology is toxic metabolic, improving. 5. Coronary artery disease. Continue medical management. 6. Diabetes. Continue current insulin regimen. 7. Hypothyroidism. Continue Synthroid. 8. History of atrial fibrillation. Continue medical management. 9. Thrombocytopenia. Continue to monitor. 10. Hypertension, improved. Continue current blood pressure regimen. Dictated By: SUSY CISNEROS DO NR/NTS Conf#: [id number] DID#: [id number] CC: NEREIDA MCQUEEN MD; EVA LOPEZ MD;*End*
[2018-12-05] MEDS: BUDESONIDE (NEB) 0.5MG/2ML AMP HHN SCH ×2 (09:55→20:04)
--- NOTE | 2018-12-05 10:41 | CONS ---
Assessment/Plan Assessment/Plan Assessment/Plan (Daily) Assessment and recommendations; 1 patient with history of dementia admitted for worsening mental status due to severe metabolic acidosis due to acute renal failure, now hemodialysis dependent. 2. Chronic atrial fibrillation. 3. Anemia and thrombocytopenia. 4. Diabetes. Continue current supportive care. Stable for discharge from pulmonary perspective. Consultation Date/Type/Reason Admit Date/Time Nov 25, 2018 at 13:18 Initial Consult Date 11/26/18 Type of Consult Pulmonary/critical care Patient is a 78-year-old lady who was admitted for altered mental status. Further workup has revealed significant anemia with worsening chronic renal failure with severe elevation in serum creatinine. Since admission however p atient mental status has improved significantly to the point with the patient always communicative and awake and alert. Patient also is mildly hypotensive likely due to anemia. She denies any shortness of breath any chest pain. Any nausea vomiting. Past medical history; 1. Chronic renal insufficiency, 2. CHF. 3. Hypertension. 4. History of colon cancer. Status post partial colectomy. 5. Chronic atrial fibrillation. 6. Apparently chronic anemia. Medications; reviewed. Allergies; none. Social history; patient never smoked. Family history; noncontributory. 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 Review of systems; denies any chest pain, shortness of breath has improved. Denies any abdominal pain, nausea vomiting. General exam; elderly female, awake. Currently no distress. Requesting Provider: GENNY SULLIVAN Date/Time of Note DATE: 12/05/18 TIME: 10:39 24 HR Interval Summary Free Text/Dictation Patient's condition is stable. Still exhibiting occasional agitation requiring soft restraints. Patient has remained hemodynamically stable. General exam; elderly woman, currently no distress. Exam/Review of Systems Exam Vitals Vital Signs Date Temp Pulse Resp B/P (MAP) Pulse Ox O2 O2 Flow FiO2 Time Delivery Rate 12/05/18 92 20 95 Nasal 5.0 09:56 Cannula 12/05/18 98.5 123/56 06:00 (78) Intake and Output 12/04/18 12/04/18 12/05/18 1515:00 23:00 07:00 IntakeIntake Total 0 ml 0 ml 530 ml OutputOutput Total 2520 ml 2010 ml 25 ml BalanceBalance -2520 ml -2010 ml 505 ml Exam H EENT exam; supple neck, no JVD. No lymphadenopathy. Midline trachea. No t hyromegaly. Patient has carious teeth. Chest exam; diminished but clear breath sounds. S1-S2 audible, no murmurs. Irregular rhythm. Abdomen exam; soft, nontender. No organomegaly. Nondistended. Bowel sounds audible. Extremity exam; no peripheral edema clubbing. AIR CONDITIONING SPECIALIST exam; no focal motor deficit. Results Result Diagram: 12/04/18 1044 12/04/18 1044 Results 24hrs Laboratory Tests Test 12/04/18 10:44 12/04/18 12:48 12/04/18 17:37 12/04/18 21:36 White Blood Count 8.5 Red Blood Count 2.95 L Hemoglobin 8.7 L Hematocrit 28.0 L Mean Corpuscular 94.9 Volume Mean Corpuscular 29.5 Hemoglobin Mean Corpuscular 31.1 L Hemoglobin Concent Red Cell 16.2 H Distribution Width Platelet Count 114 L Mean Platelet Volume 10.8 H Immature 2.100 H Granulocytes % Neutrophils % 84.9 H Lymphocytes % 6.9 L Monocytes % 5.1 Eosinophils % 0.6 Basophils % 0.4 Nucleated Red Blood 0.0 Cells % Immature 0.180 H Granulocytes # Neutrophils # 7.2 Lymphocytes # 0.6 L Monocytes # 0.4 Eosinophils # 0.1 Basophils # 0.0 Nucleated Red Blood 0.0 Cells # Sodium Level 141 Potassium Level 3.6 Chloride Level 102 Carbon Dioxide Level 28 Anion Gap 11 Blood Urea Nitrogen 19 Creatinine 3.10 H Est Glomerular Filtrat Rate mL/min Glucose Level 135 Calcium Level 8.7 Bedside Glucose 102 153 122 Test 12/05/18 01:51 12/05/18 04:55 12/05/18 08:37 Bedside Glucose 149 137 149 Medications Medication Current Medications Hydralazine HCl (Apresoline) 10 mg Q6H PRN IV SBP >160 Last administered on 12/04/18at 13:26; Admin Dose 10 MG; Start 11/25/18 at 14:00 Ondansetron HCl (Zofran Inj) 4 mg Q4H PRN IV NAUSEA AND/OR VOMITING Last administered on 11/29/18at 01:10; Admin Dose 4 MG; Start 11/25/18 at 14:00 Insulin Glargine (Lantus) 10 units DAILY@0800 SC Last administered on 12/05/18 09:06; Admin Dose 10 UNITS; Start 11/26/18 at 08:00 Insulin Aspart (Novolog Insulin Pen) NOVOLOG *MILD* ALGORI... Q4 SC Last administered on 12/05/18 08:57; Admin Dose 1 UNIT; Start 11/25/18 at 17:00 Albuterol/ Ipratropium (Duoneb) 3 ml Q6H RESP THERAPY PRN HHN SHORTNESS OF BREATH Last administered on 11/26/18at 20:17; Admin Dose 3 ML; Start 11/25/18 at 14:00 Acetaminophen (Tylenol Supp) 650 mg Q4H PRN IN MILD PAIN(1-3) OR TEMP>38C Last administered on 12/02/18 09:25; Admin Dose 650 MG; Start 11/25/18 at 14:00 Miscellaneous Information 1 ea NOTE XX ; Start 11/25/18 at 14:30 Glucose (Glutose) 15 gm Q15M PRN PO DECREASED GLUCOSE; Start 11/25/18 at 14:30 Glucose (Glutose) 22.5 gm Q15M PRN PO DECREASED GLUCOSE; Start 11/25/18 at 14:30 Dextrose (D50w Syringe) 25 ml Q15M PRN IV DECREASED GLUCOSE; Start 11/25/18 at 14:30 Dextrose (D50w Syringe) 50 ml Q15M PRN IV DECREASED GLUCOSE; Start 11/25/18 at 14:30 Glucagon (Glucagen) 1 mg Q15M PRN IM DECREASED GLUCOSE; Start 11/25/18 at 14:30 Glucose (Glutose) 15 gm Q15M PRN BUCCAL DECREASED GLUCOSE; Start 11/25/18 at 14:30 Budesonide (Pulmicort (Neb)) 0.5 mg BID RESP THERAPY HHN Last administered on 12/05/18 09:55; Admin Dose 0.5 MG; Start 11/26/18 at 09:00 IV Flush (NS 10 ml) 10 ml PRN PRN IV IV PROTOCOL; Start 11/26/18 at 14:00 Metoprolol Tartrate (Lopressor) 5 mg Q4H PRN IV HR>110 Hold SBP<100 Last administered on 12/04/18 09:35; Admin Dose 5 MG; Start 11/26/18 at 18:00 Levothyroxine Sodium (Synthroid) 125 mcg DAILY@06 PO Last administered on 12/04/18 06:36; Admin Dose 125 MCG; Start 11/28/18 at 06:00 Albumin Human 100 ml @ 100 mls/hr DURING DIALYSIS PRN IV HYPOTENTION DURING HD Last administered on 12/03/18 10:51; Admin Dose 100 MLS/HR; Start 11/27/18 at 20:30 Acetaminophen (Tylenol Liquid) 650 mg Q4H PRN PO MILD PAIN(1-3)OR ELEVATED TEMP Last administered on 11/28/18 18:59; Admin Dose 650 MG; Start 11/28/18 at 16:00 Haloperidol (Haldol) 2 mg Q4 PRN IV AGITATION Last administered on 12/02/18 1 3:01; Admin Dose 2 MG; Start 11/29/18 at 12:00 Quetiapine Fumarate (Seroquel) 25 mg QHS PO Last administered on 12/04/18 21:37; Admin Dose 25 MG; Start 11/29/18 at 21:00 Pantoprazole (Protonix Tab) 40 mg DAILY@06 PO Last administered on 12/04/18 06:36; Admin Dose 40 MG; Start 11/30/18 at 06:00 Dextrose/Sodium Chloride 1,000 ml @ 40 mls/hr Q24H IV Last administered on 12/04/18 05:42; Admin Dose 40 MLS/HR; Start 11/30/18 at 12:30 Metoprolol Tartrate (Lopressor) 25 mg BID PO Last administered on 12/04/18 21:37; Admin Dose 25 MG; Start 12/02/18 at 09:00 Enalaprilat (Vasotec Iv) 1.25 mg Q2H PRN IV ELEVATED SYSTOLIC BP Last administered on 12/03/18 02:30; Admin Dose 1.25 MG; Start 12/03/18 at 00:30 Epoetin Kavon-epbx (RETACRIT(esrd)) 10,000 unit MoWeFr@1700 SC Last administered on 12/03/18 17:28; Admin Dose 10,000 UNIT; Start 12/03/18 at 17:00 Clonidine HCl (Catapres-Tts 2 Patch) 1 patch Q7D TRANSDERM Last administered on 4/22/19at 14:25; Admin Dose 1 PATCH; Start 12/03/18 at 13:00 PERNELL BYRD Dec 05, 2018 10:41
[2018-12-05] MEDS: DEXTROSE 5%-0.45% NACL 1,000 ML IV SCH (12:02)
--- NOTE | 2018-12-05 15:25 | CONS ---
Assessment/Plan Assessment/Plan Hospital Course 78 yo F with hx of ESRD on HD and other comorbidities who presents with ams in contest of respiratory sx. She was noted to be acutely encephalopathic following HD on 11/28, for which neurology is consulted. 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 MRI brain was technically limited, but was otherwise without obvious acute intracranial pathology. HCT on 11/25 was the same. EEG was without obvious epileptiform activity.. ammonia wnl, TSH nl, B12 ok P: Ok to defer additional neuroimaging for now. Crawford as necessary Consider seroquel hs and prn Limit other sedating medications where possible Medical management per primary Will follow clinically Consultation Date/Type/Reason Admit Date/Time Nov 25, 2018 at 13:18 Type of Consult Neurology Reason for Consultation ams Requesting Provider: GENNY SULLIVAN Date/Time of Note DATE: 12/05/18 TIME: 15:23 24 HR Interval Summary Free Text/Dictation Continues acute care. Exam Vital Signs Vitals Vital Signs Date Temp Pulse Resp B/P (MAP) Pulse Ox O2 O2 Flow FiO2 Time Delivery Rate 12/05/18 88 13:15 12/05/18 99.1 20 136/64 98 Nasal 4.0 10:00 (88) Cannula Intake and Output 12/04/18 12/04/18 12/05/18 1515:00 23:00 07:00 IntakeIntake Total 0 ml 0 ml 530 ml OutputOutput Total 2520 ml 2010 ml 25 ml BalanceBalance -2520 ml -2010 ml 505 ml Exam PE: Gen Appearance: Calm, NAD HEENT: Normocephalic Cardiovascular: Regular rate Abdomen: Soft Extremities: Dry NE: The patient was awake and alert; able to track and nod appropriately to questions. Fund of knowledge was unable to be assessed. Cranial nerve examination was limited by mental status. Pupils were equal and reactive to light. There was no afferent pupillary defect. Funduscopic examination was limited. Face was grossly symmetric, w/ present corneal and cough reflexes. Tone was normal. Muscle bulk was normal. I did not see fasciculations. The patient was spontaneously moving all extremities, symmetrically. Coordination and gait testing was limited by mental status. Arm and leg reflexes were within normal limits and symmetric. Lai's sign was absent. Plantar responses were flexor. NICHO HENDRIX NP Dec 05, 2018 15:25
--- NOTE | 2018-12-05 16:36 | CONS ---
Assessment/Plan Assessment/Plan Assessment/Plan (Daily) Assessment/Plan Hospital Course (Demo Recall) 78-year-old female with a history of hypertension, CHF, chronic kidney disease, diabetes mellitus, pulmonary embolism, colon cancer, status post surgery, atrial fibrillation admitted originally to [facility] for respiratory failure, transferred to [place]. At [place] pt was found to be hypotensive and transferred to [facility]. We were consulted for anemia and positive guaiac stool Interval hx: HH slightly decreased. No signs GI bleeding per RN. 1. Anemia due to the chronic gastrointestinal blood loss and also chronic disease. 2. Diabetes mellitus. 3. Thrombocytopenia. 4. Bronchial asthma. 5. Atrial fibrillation. 6. Renal failure. 7. Mildly elevated CEA at 6.6 Plan Waiting for the EGD, colonoscopy report from the other hospital and capsule endoscopy report. Per RN it was faxed yesterday. She will call us once she receives reports. Pt may need repeat colonoscopy since CEA elevated and positive FOB I reviewed EGD and capsule endoscopy report from [facility] it was negative. Patient never had a colonoscopy. Given the history of colon cancer positive stool guaiacs he definitely needs colonoscopy Consultation Date/Type/Reason Admit Date/Time Nov 25, 2018 at 13:18 Initial Consult Date 11/26/18 Requesting Provider: GENNY SULLIVAN Date/Time of Note DATE: 12/05/18 TIME: 16:35 24 HR Interval Summary Constitutional: improved Exam/Review of Systems Exam Vitals Vital Signs Date Temp Pulse Resp B/P (MAP) Pulse Ox O2 O2 Flow FiO2 Time Delivery Rate 12/05/18 98.5 20 123/54 97 Nasal 4.0 15:45 (77) Cannula 12/05/18 87 14:00 Intake and Output 12/04/18 12/04/18 12/05/18 1515:00 23:00 07:00 IntakeIntake Total 0 ml 0 ml 530 ml OutputOutput Total 2520 ml 2009 ml 25 ml BalanceBalance -2520 ml -2010 ml 505 ml Constitutional: alert, oriented, well developed Psych: no complaints, nl mood/affect Head: normocephalic, atraumatic Eyes: nl conjunctiva, EOMI, nl lids, nl sclera, PERRL ENMT: nl external ears & nose, nl lips & teeth, nl nasal mucosa & septum Neck: supple, non-tender Respiratory: clear to auscultation, normal air movement Cardiovascular: regular rate and rhythm, nl pulses Gastrointestinal: soft, nl liver, spleen, non-tender Musculoskeletal: nl extremities to inspection, nl gait and stance Extremities: normal pulses 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, nl mental status, nl speech, nl strength Skin: nl turgor; No rash or lesions Lymph: nl lymph nodes Results Result Diagram: 12/04/18 1044 12/04/18 1044 Results 24hrs Laboratory Tests Test 12/04/18 17:37 12/04/18 21:36 12/05/18 01:51 12/05/18 04:55 Bedside Glucose 153 122 149 137 Test 12/05/18 08:37 12/05/18 12:50 Bedside Glucose 149 166 Medications Medication Current Medications Hydralazine HCl (Apresoline) 10 mg Q6H PRN IV SBP >160 Last administered on 12/04/18at 13:26; Admin Dose 10 MG; Start 11/25/18 at 14:00 Ondansetron HCl (Zofran Inj) 4 mg Q4H PRN IV NAUSEA AND/OR VOMITING Last administered on 11/29/18at 01:10; Admin Dose 4 MG; Start 11/25/18 at 14:00 Insulin Glargine (Lantus) 10 units DAILY@0800 SC Last administered on 12/05/18at 09:06; Admin Dose 10 UNITS; Start 11/26/18 at 08:00 Insulin Aspart (Novolog Insulin Pen) NOVOLOG *MILD* ALGORI... Q4 SC Last administered on 12/05/18at 12:55; Admin Dose 1 UNIT; Start 11/25/18 at 17:00 Albuterol/ Ipratropium (Duoneb) 3 ml Q6H RESP THERAPY PRN HHN SHORTNESS OF BREATH Last administered on 11/26/18at 20:17; Admin Dose 3 ML; Start 11/25/18 at 14:00 Acetaminophen (Tylenol Supp) 650 mg Q4H PRN [place] MILD PAIN(1-3) OR TEMP>38C Last administered on 12/02/18at 09:25; Admin Dose 650 MG; Start 11/25/18 at 14:00 Miscellaneous Information 1 ea NOTE XX ; Start 11/25/18 at 14:30 Glucose (Glutose) 15 gm Q15M PRN PO DECREASED GLUCOSE; Start 11/25/18 at 14:30 Glucose (Glutose) 22.5 gm Q15M PRN PO DECREASED GLUCOSE; Start 11/25/18 at 14:30 Dextrose (D50w Syringe) 25 ml Q15M PRN IV DECREASED GLUCOSE; Start 11/25/18 at 14:30 Dextrose (D50w Syringe) 50 ml Q15M PRN IV DECREASED GLUCOSE; Start 11/25/18 at 14:30 Glucagon (Glucagen) 1 mg Q15M PRN IM DECREASED GLUCOSE; Start 11/25/18 at 14:30 Glucose (Glutose) 15 gm Q15M PRN BUCCAL DECREASED GLUCOSE; Start 11/25/18 at 14:30 Budesonide (Pulmicort (Neb)) 0.5 mg BID RESP THERAPY HHN Last administered on 12/05/18at 09:55; Admin Dose 0.5 MG; Start 11/26/18 at 09:00 IV Flush (NS 10 ml) 10 ml PRN PRN IV IV PROTOCOL; Start 11/26/18 at 14:00 Metoprolol Tartrate (Lopressor) 5 mg Q4H PRN IV HR>110 Hold SBP<100 Last administered on 12/04/18at 09:35; Admin Dose 5 MG; Start 11/26/18 at 18:00 Levothyroxine Sodium (Synthroid) 125 mcg DAILY@06 PO Last administered on 12/04/18at 06:36; Admin Dose 125 MCG; Start 11/28/18 at 06:00 Albumin Human 100 ml @ 100 mls/hr DURING DIALYSIS PRN IV HYPOTENTION DURING HD Last administered on 12/03/18at 10:51; Admin Dose 100 MLS/HR; Start 11/27/18 at 20:30 Acetaminophen (Tylenol Liquid) 650 mg Q4H PRN PO MILD PAIN(1-3)OR ELEVATED TEMP Last administered on 11/28/18at 18:59; Admin Dose 650 MG; Start 11/28/18 at 16:00 Haloperidol (Haldol) 2 mg Q4 PRN IV AGITATION Last administered on 12/02/18at 13:01; Admin Dose 2 MG; Start 11/29/18 at 12:00 Quetiapine Fumarate (Seroquel) 25 mg QHS PO Last administered on 12/04/18 21:37; Admin Dose 25 MG; Start 11/29/18 at 21:00 Pantoprazole (Protonix Tab) 40 mg DAILY@06 PO Last administered on 12/04/18 06:36; Admin Dose 40 MG; Start 11/30/18 at 06:00 Dextrose/Sodium Chloride 1,000 ml @ 40 mls/hr Q24H IV Last administered on 12/05/18 12:02; Admin Dose 40 MLS/HR; Start 11/30/18 at 12:30 Metoprolol Tartrate (Lopressor) 25 mg BID PO Last administered on 12/04/18 21:37; Admin Dose 25 MG; Start 12/02/18 at 09:00 Enalaprilat (Vasotec Iv) 1.25 mg Q2H PRN IV ELEVATED SYSTOLIC BP Last administered on 12/03/18 02:30; Admin Dose 1.25 MG; Start 12/03/18 at 00:30 Epoetin Kavon-epbx (RETACRIT(esrd)) 10,000 unit MoWeFr@1700 SC Last administered on 12/03/18 17:28; Admin Dose 10,000 UNIT; Start 12/03/18 at 17:00 Clonidine HCl (Catapres-Tts 2 Patch) 1 patch Q7D TRANSDERM Last administered on 12/03/18 14:25; Admin Dose 1 PATCH; Start 12/03/18 at 13:00 KASANDRA FLOYD MD Dec 05, 2018 16:36
--- NOTE | 2018-12-05 16:59 | CONS ---
Assessment/Plan Assessment/Plan Hospital Course (Demo Recall) IMPRESSION: 1. Hypotension-overall improved and not on pressors currently and now HTN requiring medications 2. Atrial fibrillation, primarily rate controlled off of antihypertensives at this time. 3. Anemia, worsening with guaiac positive stool consistent with gastrointestinal bleed. 4. Diabetes mellitus. 5. Acute on chronic renal failure, being initiated on hemodialysis. 6. Altered mental state. 7. Diastolic congestive heart failure due to a preserved EF by most recent echo and findings by chest x-ray. 8. History of coronary artery disease, nonobstructive by outside hospital ca theterization. 9. Shortness of breath with hypothyroidism. 10. Diabetes mellitus. Recc: -Continue BB/clonidine TTS with reasonable BP control -HD for volume removal -Follow HR/rhythm closely -not on anticoagulation secondary to GIB/anemia requiring transfusion Consultation Date/Type/Reason Admit Date/Time Nov 25, 2018 at 13:18 Initial Consult Date 11/26/18 Type of Consult Cardiology Reason for Consultation Hypotension Requesting Provider: GENNY SULLIVAN Date/Time of Note DATE: 12/05/18 TIME: 16:56 Exam/Review of Systems Vital Signs Vitals Vital Signs Date Temp Pulse Resp B/P (MAP) Pulse Ox O2 O2 Flow FiO2 Time Delivery Rate 12/05/18 93 16:39 12/05/18 98.5 20 123/54 97 Nasal 4.0 15:45 (77) Cannula Intake and Output 12/04/18 12/04/18 12/05/18 1515:00 23:00 07:00 IntakeIntake Total 0 ml 0 ml 530 ml OutputOutput Total 2520 ml 2009 ml 25 ml BalanceBalance -2520 ml -2010 ml 505 ml Exam Exam Review of Systems: CONSTITUTIONAL: No fevers, chills. PULMONARY: No sob CARDIOVASCULAR: No chest pain/palpitations GASTROINTESTINAL: No nausea/vomiting. GENITOURINARY: No hematuria/dysuria. MUSCULOSKELETAL: No myagias/arthalgias. PSYCHIATRIC: The patient denies depression. NEUROLOGIC: No weakness Constitutional: alert Psych: no complaints, confusion Head: normocephalic ENMT: mucosa pink and moist Neck: supple, jvd (9 cm water) Respiratory: clear to auscultation Cardiovascular: regular rate and rhythm Gastrointestinal: soft, non-tender Musculoskeletal: muscle tone (normal) Extremities: edema Neurological: other (No focal deficits) Labs Result Diagram: 12/04/18 1044 12/04/18 1044 Results 24hrs Laboratory Tests Test 12/04/18 17:37 12/04/18 21:36 12/05/18 01:51 12/05/18 04:55 Bedside Glucose 153 122 149 137 Test 12/05/18 08:37 12/05/18 12:50 Bedside Glucose 149 166 Medications Medications Current Medications Hydralazine HCl (Apresoline) 10 mg Q6H PRN IV SBP >160 Last administered on 12/04/18at 13:26; Admin Dose 10 MG; Start 11/25/18 at 14:00 Ondansetron HCl (Zofran Inj) 4 mg Q4H PRN IV NAUSEA AND/OR VOMITING Last administered on 11/29/18 01:10; Admin Dose 4 MG; Start 11/25/18 at 14:00 Insulin Glargine (Lantus) 10 units DAILY@0800 SC Last administered on 12/05/18 09:06; Admin Dose 10 UNITS; Start 11/26/18 at 08:00 Insulin Aspart (Novolog Insulin Pen) NOVOLOG *MILD* ALGORI... Q4 SC Last administered on 12/05/18at 12:55; Admin Dose 1 UNIT; Start 11/25/18 at 17:00 Albuterol/ Ipratropium (Duoneb) 3 ml Q6H RESP THERAPY PRN HHN SHORTNESS OF BREATH Last administered on 11/26/18at 20:17; Admin Dose 3 ML; Start 11/25/18 at 14:00 Acetaminophen (Tylenol Supp) 650 mg Q4H PRN [place] MILD PAIN(1-3) OR TEMP>38C Last administered on 12/02/18 09:25; Admin Dose 650 MG; Start 11/25/18 at 14:00 Miscellaneous Information 1 ea NOTE XX ; Start 11/25/18 at 14:30 Glucose (Glutose) 15 gm Q15M PRN PO DECREASED GLUCOSE; Start 11/25/18 at 14:30 Glucose (Glutose) 22.5 gm Q15M PRN PO DECREASED GLUCOSE; Start 11/25/18 at 14: 30 Dextrose (D50w Syringe) 25 ml Q15M PRN IV DECREASED GLUCOSE; Start 11/25/18 at 14:30 Dextrose (D50w Syringe) 50 ml Q15M PRN IV DECREASED GLUCOSE; Start 11/25/18 at 14:30 Glucagon (Glucagen) 1 mg Q15M PRN IM DECREASED GLUCOSE; Start 11/25/18 at 14:30 Glucose (Glutose) 15 gm Q15M PRN BUCCAL DECREASED GLUCOSE; Start 11/25/18 at 14:30 Budesonide (Pulmicort (Neb)) 0.5 mg BID RESP THERAPY HHN Last administered on 12/05/18 09:55; Admin Dose 0.5 MG; Start 11/26/18 at 09:00 IV Flush (NS 10 ml) 10 ml PRN PRN IV IV PROTOCOL; Start 11/26/18 at 14:00 Metoprolol Tartrate (Lopressor) 5 mg Q4H PRN IV HR>110 Hold SBP<100 Last administered on 12/04/18 09:35; Admin Dose 5 MG; Start 11/26/18 at 18:00 Levothyroxine Sodium (Synthroid) 125 mcg DAILY@06 PO Last administered on 12/04/18 06:36; Admin Dose 125 MCG; Start 11/28/18 at 06:00 Albumin Human 100 ml @ 100 mls/hr DURING DIALYSIS PRN IV HYPOTENTION DURING HD Last administered on 12/03/18 10:51; Admin Dose 100 MLS/HR; Start 11/27/18 at 20:30 Acetaminophen (Tylenol Liquid) 650 mg Q4H PRN PO MILD PAIN(1-3)OR ELEVATED TEMP Last administered on 11/28/18 18:59; Admin Dose 650 MG; Start 11/28/18 at 16:00 Haloperidol (Haldol) 2 mg Q4 PRN IV AGITATION Last administered on 12/02/18 13:01; Admin Dose 2 MG; Start 11/29/18 at 12:00 Quetiapine Fumarate (Seroquel) 25 mg QHS PO Last administered on 12/04/18 21:37; Admin Dose 25 MG; Start 11/29/18 at 21:00 Pantoprazole (Protonix Tab) 40 mg DAILY@06 PO Last administered on 12/04/18 06:36; Admin Dose 40 MG; Start 11/30/18 at 06:00 Dextrose/Sodium Chloride 1,000 ml @ 40 mls/hr Q24H IV Last administered on 12/05/18 12:02; Admin Dose 40 MLS/HR; Start 11/30/18 at 12:30 Metoprolol Tartrate (Lopressor) 25 mg BID PO Last administered on 12/04/18 21:37; Admin Dose 25 MG; Start 12/02/18 at 09:00 Enalaprilat (Vasotec Iv) 1.25 mg Q2H PRN IV ELEVATED SYSTOLIC BP Last administered on 12/03/18 02:30; Admin Dose 1.25 MG; Start 12/03/18 at 00:30 Epoetin Kavon-epbx (RETACRIT(esrd)) 10,000 unit MoWeFr@1700 SC Last administered on 12/03/18 17:28; Admin Dose 10,000 UNIT; Start 12/03/18 at 17:00 Clonidine HCl (Catapres-Tts 2 Patch) 1 patch Q7D TRANSDERM Last administered on 12/03/18 14:25; Admin Dose 1 PATCH; Start 12/03/18 at 13:00 CARMELO MAE Dec 05, 2018 16:59
[2018-12-05] MEDS: EPOETIN ALFA-EPBX (ESRD) 10,000 UNIT/ML VIAL SC SCH (18:00)
[2018-12-05] MEDS ORDERED: DOCUSATE SODIUM 100 MG CAP PO PRN (19:00)
--- NOTE | 2018-12-05 19:38 | PN ---
Date/Time of Note Date/Time of Note DATE: 12/05/18 TIME: 19:37 Assessment/Plan VTE Prophylaxis Risk score (from [facility])>0 risk: 11 SCD applied (from [facility]): Yes SCD contraindicated: other Pharmacological prophylaxis: other Pharm contraindication: other Lines/Catheters IV Catheter Type (from [facility]): Trialysis Central line still needed: Yes Urinary Cath still in place: Yes Reason Cath still needed: urinary retention Assessment/Plan Assessment/Plan - Risk for aspiration- speech evaluation today-fu 1. Oliguric acute kidney injury on top of chronic kidney disease stage IV with previous baseline creatinine around 2.0 mg/dL. Etiology of acute kidney injury was secondary to acute tubular necrosis due to hemodynamic sepsis. \ - HD per Nephrology -on case 2. Anemia, etiology is multifactorial secondary to chronic kidney disease, iron deficiency, questionable GI bleed. Patient is currently on IV iron on Epogen. - Continue to monitor CBC - Continue PPI. - per GI 3. Mineral bone disorder. Monitor calcium and phosphorus levels. 4. Encephalopathy. Etiology is toxic metabolic, possibly uremic. Continue to monitor. 5. Coronary artery disease. Continue medical management. 6. Diabetes. - Continue current insulin regimen. 7. Hypothyroidism. Continue Synthroid. 8. History of asthma. Continue current treatment plan. 9. History of atrial fibrillation. 10. Thrombocytopenia. Continue to monitor. 11. Hypertension. Blood pressure controlled. Plan of care discussed with Dr. Lind. Result Diagram: 12/04/18 1044 12/04/18 1044 Results 24hrs Laboratory Tests Test 12/04/18 21:36 12/05/18 01:51 12/05/18 04:55 12/05/18 08:37 Bedside Glucose 122 149 137 149 Test 12/05/18 12:50 12/05/18 17:57 Bedside Glucose 166 162 Subjective 24 Hr Interval Summary Free Text/Dictation - nad - confused but stable -speech eval today - no new events reported last night dw staff Constitutional: requiring O2 Respiratory: no complaints Cardiovascular: no complaints Gastrointestinal: no complaints Musculoskeletal: no complaints Exam/Review of Systems Exam Vitals Vital Signs Date Temp Pulse Resp B/P (MAP) Pulse Ox O2 O2 Flow FiO2 Time Delivery Rate 12/05/18 93 16:39 12/05/18 98.5 20 123/54 97 Nasal 4.0 15:45 (77) Cannula Intake and Output 12/04/18 12/04/18 12/05/18 1515:00 23:00 07:00 IntakeIntake Total 0 ml 0 ml 530 ml OutputOutput Total 2520 ml 2010 ml 25 ml BalanceBalance -2520 ml -2010 ml 505 ml Constitutional: alert, well developed Psych: nl mood/affect Head: normocephalic Eyes: nl lids, nl sclera ENMT: nl external ears & nose Neck: non-tender Respiratory: clear to auscultation Cardiovascular: nl pulses, other (s1s2) Gastrointestinal: soft, non-tender Musculoskeletal: nl extremities to inspection Extremities: normal pulses Neurological: nl speech, confused, other (alert/reponsive) Lymph: nontender Results Results 24hrs Laboratory Tests Test 12/04/18 21:36 12/05/18 01:51 12/05/18 04:55 12/05/18 08:37 Bedside Glucose 122 149 137 149 Test 12/05/18 12:50 12/05/18 17:57 Bedside Glucose 166 162 Medications Medication Current Medications Hydralazine HCl (Apresoline) 10 mg Q6H PRN IV SBP >160 Last administered on 12/04/18at 13:26; Admin Dose 10 MG; Start 11/25/18 at 14:00 Ondansetron HCl (Zofran Inj) 4 mg Q4H PRN IV NAUSEA AND/OR VOMITING Last administered on 11/29/18at 01:10; Admin Dose 4 MG; Start 11/25/18 at 14:00 Insulin Glargine (Lantus) 10 units DAILY@0800 SC Last administered on 12/05/18at 09:06; Admin Dose 10 UNITS; Start 11/26/18 at 08:00 Insulin Aspart (Novolog Insulin Pen) NOVOLOG *MILD* ALGORI... Q4 SC Last administered on 12/05/18at 18:06; Admin Dose 1 UNIT; Start 11/25/18 at 17:00 Albuterol/ Ipratropium (Duoneb) 3 ml Q6H RESP THERAPY PRN HHN SHORTNESS OF BREATH Last administered on 11/26/18at 20:17; Admin Dose 3 ML; Start 11/25/18 at 14:00 Acetaminophen (Tylenol Supp) 650 mg Q4H PRN [place] MILD PAIN(1-3) OR TEMP>38C Last administered on 12/02/18at 09:25; Admin Dose 650 MG; Start 11/25/18 at 14:00 Miscellaneous Information 1 ea NOTE XX ; Start 11/25/18 at 14:30 Glucose (Glutose) 15 gm Q15M PRN PO DECREASED GLUCOSE; Start 11/25/18 at 14:30 Glucose (Glutose) 22.5 gm Q15M PRN PO DECREASED GLUCOSE; Start 11/25/18 at 14:30 Dextrose (D50w Syringe) 25 ml Q15M PRN IV DECREASED GLUCOSE; Start 11/25/18 at 14:30 Dextrose (D50w Syringe) 50 ml Q15M PRN IV DECREASED GLUCOSE; Start 11/25/18 at 14:30 Glucagon (Glucagen) 1 mg Q15M PRN IM DECREASED GLUCOSE; Start 11/25/18 at 14:30 Glucose (Glutose) 15 gm Q15M PRN BUCCAL DECREASED GLUCOSE; Start 11/25/18 at 14:30 Budesonide (Pulmicort (Neb)) 0.5 mg BID RESP THERAPY HHN Last administered on 12/05/18at 09:55; Admin Dose 0.5 MG; Start 11/26/18 at 09:00 IV Flush (NS 10 ml) 10 ml PRN PRN IV IV PROTOCOL; Start 11/26/18 at 14:00 Metoprolol Tartrate (Lopressor) 5 mg Q4H PRN IV HR>110 Hold SBP<100 Last administered on 12/04/18at 09:35; Admin Dose 5 MG; Start 11/26/18 at 18:00 Levothyroxine Sodium (Synthroid) 125 mcg DAILY@06 PO Last administered on 12/04/18at 06:36; Admin Dose 125 MCG; Start 11/28/18 at 06:00 Albumin Human 100 ml @ 100 mls/hr DURING DIALYSIS PRN IV HYPOTENTION DURING HD Last administered on 12/03/18at 10:51; Admin Dose 100 MLS/HR; Start 11/27/18 at 20:30 Acetaminophen (Tylenol Liquid) 650 mg Q4H PRN PO MILD PAIN(1-3)OR ELEVATED TEMP Last administered on 11/28/18at 18:59; Admin Dose 650 MG; Start 11/28/18 at 16:00 Haloperidol (Haldol) 2 mg Q4 PRN IV AGITATION Last administered on 12/02/18 13:01; Admin Dose 2 MG; Start 11/29/18 at 12:00 Quetiapine Fumarate (Seroquel) 25 mg QHS PO Last administered on 12/04/18 21:37; Admin Dose 25 MG; Start 11/29/18 at 21:00 Pantoprazole (Protonix Tab) 40 mg DAILY@06 PO Last administered on 12/04/18 06:36; Admin Dose 40 MG; Start 11/30/18 at 06:00 Dextrose/Sodium Chloride 1,000 ml @ 40 mls/hr Q24H IV Last administered on 12/05/18 12:02; Admin Dose 40 MLS/HR; Start 11/30/18 at 12:30 Metoprolol Tartrate (Lopressor) 25 mg BID PO Last administered on 12/04/18 21:37; Admin Dose 25 MG; Start 12/02/18 at 09:00 Enalaprilat (Vasotec Iv) 1.25 mg Q2H PRN IV ELEVATED SYSTOLIC BP Last administered on 12/03/18 02:30; Admin Dose 1.25 MG; Start 12/03/18 at 00:30 Epoetin Kavon-epbx (RETACRIT(esrd)) 10,000 unit MoWeFr@1700 SC Last administered on 12/05/18 18:00; Admin Dose 10,000 UNIT; Start 12/03/18 at 17:00 Clonidine HCl (Catapres-Tts 2 Patch) 1 patch Q7D TRANSDERM Last administered on 12/03/18at 14:25; Admin Dose 1 PATCH; Start 12/03/18 at 13:00 Docusate Sodium (Colace) 100 mg BID PRN PO CONSTIPATION; Start 12/05/18 at 19:00 JODI HANSON Dec 05, 2018 19:38
[2018-12-05] MEDS: QUETIAPINE 25 MG TAB PO SCH (20:49)
[2018-12-06] VITALS (23 sets, daily range): BP systolic 94–159; BP diastolic 42–76; PULSE 67–90; RESP 18–21
[2018-12-06] MEDS: INSULIN ASPART [NOVOLOG] 3 ML PEN SC SCH ×6 (00:55→21:33)
[2018-12-06] MEDS: PANTOPRAZOLE (EC) 40 MG TAB PO SCH (05:24)
[2018-12-06] MEDS: LEVOTHYROXINE 125 MCG TAB PO SCH (05:24)
[2018-12-06] MEDS: INSULIN GLARGINE [LANTus] (100 UNITS/ML) SYG SC SCH (08:00)
[2018-12-06] MEDS: METOPROLOL 25 MG TAB PO SCH ×2 (09:00→21:27)
[2018-12-06] MEDS: BUDESONIDE (NEB) 0.5MG/2ML AMP HHN SCH ×2 (09:24→20:29)
--- NOTE | 2018-12-06 10:24 | CONS ---
Assessment/Plan Assessment/Plan Assessment/Plan (Daily) Interval hx: HH slightly decreased. No signs GI bleeding per RN. 1. Anemia due to the chronic gastrointestinal blood loss and also chronic disease. 2. Diabetes mellitus. 3. Thrombocytopenia. 4. Bronchial asthma. 5. Atrial fibrillation. 6. Renal failure. 7. Mildly elevated CEA at 6.6 Plan Waiting for the EGD, colonoscopy report from the other hospital and capsule endoscopy report. Per RN it was faxed yesterday. She will call us once she receives reports. Pt may need repeat colonoscopy since CEA elevated and positive FOB I reviewed EGD and capsule endoscopy report from [facility] it was negative. Patient never had a colonoscopy. Given the history of colon cancer positive stool guaiacs he definitely needs colonoscopy. We will discuss with the family Consultation Date/Type/Reason Admit Date/Time Nov 25, 2018 at 13:18 Initial Consult Date 11/26/18 Requesting Provider: GENNY SULLIVAN Date/Time of Note DATE: 12/06/18 TIME: 10:23 24 HR Interval Summary Constitutional: improved Exam/Review of Systems Exam Vitals Vital Signs Date Temp Pulse Resp B/P (MAP) Pulse Ox O2 O2 Flow FiO2 Time Delivery Rate 12/06/18 88 21 96 Nasal 5.0 09:30 Cannula 12/06/18 98.5 153/70 07:09 (97) Intake and Output 12/05/18 12/05/18 12/06/18 1515:00 23:00 07:00 IntakeIntake Total 440 ml 440 ml OutputOutput Total 200 ml 20 ml BalanceBalance 240 ml 420 ml Constitutional: alert, oriented, well developed Psych: no complaints, nl mood/affect Head: normocephalic, atraumatic Eyes: nl conjunctiva, EOMI, nl lids, nl sclera, PERRL ENMT: nl external ears & nose, nl lips & teeth, nl nasal mucosa & septum Neck: supple, non-tender Respiratory: clear to auscultation, normal air movement Cardiovascular: regular rate and rhythm, nl pulses Gastrointestinal: soft, nl liver, spleen, non-tender Musculoskeletal: nl extremities to inspection, nl gait and stance Extremities: normal pulses Neurological: FOOD CLERK II-XII intact, nl mental status, nl speech, nl strength Skin: nl turgor; No rash or lesions Lymph: nl lymph nodes Results Result Diagram: 12/06/18 0735 12/06/18 0735 Results 24hrs Laboratory Tests Test 12/05/18 12:50 12/05/18 17:57 12/05/18 20:46 12/06/18 00:51 Bedside Glucose 166 162 168 170 Test 12/06/18 04:54 12/06/18 07:35 12/06/18 09:16 Bedside Glucose 148 135 White Blood Count 8.1 Red Blood Count 2.74 L Hemoglobin 8.2 L Hematocrit 26.4 L Mean Corpuscular 96.4 Volume Mean Corpuscular 29.9 Hemoglobin Mean Corpuscular 31.1 L Hemoglobin Concent Red Cell 16.0 H Distribution Width Platelet Count 114 L Mean Platelet Volume 11.5 H Immature 0.700 H Granulocytes % Neutrophils % 73.8 Lymphocytes % 9.6 L Monocytes % 13.7 H Eosinophils % 1.7 Basophils % 0.5 Nucleated Red Blood 0.0 Cells % Immature 0.060 H Granulocytes # Neutrophils # 5.9 Lymphocytes # 0.8 Monocytes # 1.1 H Eosinophils # 0.1 Basophils # 0.0 Nucleated Red Blood 0.0 Cells # Sodium Level 138 Potassium Level 3.9 Chloride Level 103 Carbon Dioxide Level 27 Anion Gap 8 Blood Urea Nitrogen 32 #H Creatinine 6.07 #H Est Glomerular Filtrat Rate mL/min Glucose Level 129 Calcium Level 8.2 L Phosphorus Level 5.2 H Magnesium Level 2.2 Medications Medication Current Medications Hydralazine HCl (Apresoline) 10 mg Q6H PRN IV SBP >160 Last administered on 12/04/18at 13:26; Admin Dose 10 MG; Start 11/25/18 at 14:00 Ondansetron HCl (Zofran Inj) 4 mg Q4H PRN IV NAUSEA AND/OR VOMITING Last administered on 11/29/18at 01:10; Admin Dose 4 MG; Start 11/25/18 at 14:00 Insulin Glargine (Lantus) 10 units DAILY@0800 SC Last administered on 12/06/18at 08:00; Admin Dose 10 UNITS; Start 11/26/18 at 08:00 Insulin Aspart (Novolog Insulin Pen) NOVOLOG *MILD* ALGORI... Q4 SC Last administered on 12/06/18at 05:09; Admin Dose 1 UNIT; Start 11/25/18 at 17:00 Albuterol/ Ipratropium (Duoneb) 3 ml Q6H RESP THERAPY PRN HHN SHORTNESS OF BREATH Last administered on 11/26/18at 20:17; Admin Dose 3 ML; Start 11/25/18 at 14:00 Acetaminophen (Tylenol Supp) 650 mg Q4H PRN VT MILD PAIN(1-3) OR TEMP>38C Last administered on 12/02/18at 09:25; Admin Dose 650 MG; Start 11/25/18 at 14:00 Miscellaneous Information 1 ea NOTE XX ; Start 11/25/18 at 14:30 Glucose (Glutose) 15 gm Q15M PRN PO DECREASED GLUCOSE; Start 11/25/18 at 14:30 Glucose (Glutose) 22.5 gm Q15M PRN PO DECREASED GLUCOSE; Start 11/25/18 at 14:30 Dextrose (D50w Syringe) 25 ml Q15M PRN IV DECREASED GLUCOSE; Start 11/25/18 at 14:30 Dextrose (D50w Syringe) 50 ml Q15M PRN IV DECREASED GLUCOSE; Start 11/25/18 at 14:30 Glucagon (Glucagen) 1 mg Q15M PRN IM DECREASED GLUCOSE; Start 11/25/18 at 14:30 Glucose (Glutose) 15 gm Q15M PRN BUCCAL DECREASED GLUCOSE; Start 11/25/18 at 14:30 Budesonide (Pulmicort (Neb)) 0.5 mg BID RESP THERAPY HHN Last administered on 12/06/18at 09:24; Admin Dose 0.5 MG; Start 11/26/18 at 09:00 IV Flush (NS 10 ml) 10 ml PRN PRN IV IV PROTOCOL; Start 11/26/18 at 14:00 Metoprolol Tartrate (Lopressor) 5 mg Q4H PRN IV HR>110 Hold SBP<100 Last administered on 12/04/18at 09:35; Admin Dose 5 MG; Start 11/26/18 at 18:00 Levothyroxine Sodium (Synthroid) 125 mcg DAILY@06 PO Last administered on 12/04/18at 06:36; Admin Dose 125 MCG; Start 11/28/18 at 06:00 Albumin Human 100 ml @ 100 mls/hr DURING DIALYSIS PRN IV HYPOTENTION DURING HD Last administered on 12/03/18at 10:51; Admin Dose 100 MLS/HR; Start 11/27/18 at 20:30 Acetaminophen (Tylenol Liquid) 650 mg Q4H PRN PO MILD PAIN(1-3)OR ELEVATED TEMP Last administered on 11/28/18 18:59; Admin Dose 650 MG; Start 11/28/18 at 16:00 Haloperidol (Haldol) 2 mg Q4 PRN IV AGITATION Last administered on 12/02/18 13:01; Admin Dose 2 MG; Start 11/29/18 at 12:00 Quetiapine Fumarate (Seroquel) 25 mg QHS PO Last administered on 12/05/18 20:49; Admin Dose 25 MG; Start 11/29/18 at 21:00 Pantoprazole (Protonix Tab) 40 mg DAILY@06 PO Last administered on 12/04/18 06:36; Admin Dose 40 MG; Start 11/30/18 at 06:00 Dextrose/Sodium Chloride 1,000 ml @ 40 mls/hr Q24H IV Last administered on 12/05/18 12:02; Admin Dose 40 MLS/HR; Start 11/30/18 at 12:30 Metoprolol Tartrate (Lopressor) 25 mg BID PO Last administered on 12/05/18 20:50; Admin Dose 25 MG; Start 12/02/18 at 09:00 Enalaprilat (Vasotec Iv) 1.25 mg Q2H PRN IV ELEVATED SYSTOLIC BP Last administered on 12/03/18 02:30; Admin Dose 1.25 MG; Start 12/03/18 at 00:30 Epoetin Kavon-epbx (RETACRIT(esrd)) 10,000 unit MoWeFr@1700 SC Last administered on 12/05/18 18:00; Admin Dose 10,000 UNIT; Start 12/03/18 at 17:00 Clonidine HCl (Catapres-Tts 2 Patch) 1 patch Q7D TRANSDERM Last administered on 12/03/18 14:25; Admin Dose 1 PATCH; Start 12/03/18 at 13:00 Docusate Sodium (Colace) 100 mg BID PRN PO CONSTIPATION; Start 12/05/18 at 19:00 KASANDRA FLOYD MD Dec 06, 2018 10:24
[2018-12-06] MEDS: DEXTROSE 5%-0.45% NACL 1,000 ML IV SCH (12:30)
--- NOTE | 2018-12-06 13:35 | CONS ---
Assessment/Plan Assessment/Plan Hospital Course (Demo Recall) IMPRESSION: 1. Hypotension-overall improved and not on pressors currently and now HTN requiring medications 2. Atrial fibrillation, primarily rate controlled off of antihypertensives at this time. 3. Anemia, worsening with guaiac positive stool consistent with gastrointestinal bleed. 4. Diabetes mellitus. 5. Acute on chronic renal failure,now on hemodialysis. 6. Altered mental state. 7. Diastolic congestive heart failure due to a preserved EF by most recent echo and findings by chest x-ray. 8. History of coronary artery disease, nonobstructive by outside hospital catheterization. 9. Shortness of breath with hypothyroidism. 10. Diabetes mellitus. 11.UTI Recc: -Continue BB/clonidine TTS with reasonable BP control as patient will comply -HD for volume removal -Follow HR/rhythm closely -not on anticoagulation secondary to GIB/anemia requiring transfusion -to undergo endoscopy Consultation Date/Type/Reason Admit Date/Time Nov 25, 2018 at 13:18 Initial Consult Date 11/26/18 Type of Consult Cardiology Reason for Consultation AF Requesting Provider: GENNY SULLIVAN Date/Time of Note DATE: 12/06/18 TIME: 13:32 Exam/Review of Systems Vital Signs Vitals Vital Signs Date Temp Pulse Resp B/P (MAP) Pulse Ox O2 O2 Flow FiO2 Time Delivery Rate 12/06/18 82 12:23 12/06/18 98.2 18 121/64 95 Nasal 11:35 (83) Cannula 12/06/18 5.0 09:30 Intake and Output 12/05/18 12/05/18 12/06/18 1515:00 23:00 07:00 IntakeIntake Total 440 ml 440 ml OutputOutput Total 200 ml 20 ml BalanceBalance 240 ml 420 ml Exam Exam Review of Systems: CONSTITUTIONAL: No fevers, chills. PULMONARY: No sob CARDIOVASCULAR: No chest pain/palpitations GASTROINTESTINAL: No nausea/vomiting. GENITOURINARY: No hematuria/dysuria. MUSCULOSKELETAL: No myagias/arthalgias. PSYCHIATRIC: The patient denies depression. NEUROLOGIC: lethargic somewhat Constitutional: alert Psych: no complaints Head: normocephalic ENMT: mucosa pink and moist Neck: supple, jvd (9 cm water) Respiratory: diminished breath sounds (at bases/B) Cardiovascular: irregular rhythm Gastrointestinal: soft, non-tender Musculoskeletal: muscle weakness (mild generalized) Extremities: edema (bilateral) Labs Result Diagram: 12/06/18 0735 12/06/18 0735 Results 24hrs Laboratory Tests Test 12/05/18 17:57 12/05/18 20:46 12/06/18 00:51 12/06/18 04:54 Bedside Glucose 162 168 170 148 Test 12/06/18 07:35 12/06/18 09:16 12/06/18 12:18 White Blood Count 8.1 Red Blood Count 2.74 L Hemoglobin 8.2 L Hematocrit 26.4 L Mean Corpuscular 96.4 Volume Mean Corpuscular 29.9 Hemoglobin Mean Corpuscular 31.1 L Hemoglobin Concent Red Cell 16.0 H Distribution Width Platelet Count 114 L Mean Platelet Volume 11.5 H Immature 0.700 H Granulocytes % Neutrophils % 73.8 Lymphocytes % 9.6 L Monocytes % 13.7 H Eosinophils % 1.7 Basophils % 0.5 Nucleated Red Blood 0.0 Cells % Immature 0.060 H Granulocytes # Neutrophils # 5.9 Lymphocytes # 0.8 Monocytes # 1.1 H Eosinophils # 0.1 Basophils # 0.0 Nucleated Red Blood 0.0 Cells # Sodium Level 138 Potassium Level 3.9 Chloride Level 103 Carbon Dioxide Level 27 Anion Gap 8 Blood Urea Nitrogen 32 #H Creatinine 6.07 #H Est Glomerular Filtrat Rate mL/min Glucose Level 129 Calcium Level 8.2 L Phosphorus Level 5.2 H Magnesium Level 2.2 Bedside Glucose 135 119 Medications Medications Current Medications Hydralazine HCl (Apresoline) 10 mg Q6H PRN IV SBP >160 Last administered on 12/04/18at 13:26; Admin Dose 10 MG; Start 11/25/18 at 14:00 Ondansetron HCl (Zofran Inj) 4 mg Q4H PRN IV NAUSEA AND/OR VOMITING Last administered on 11/29/18at 01:10; Admin Dose 4 MG; Start 11/25/18 at 14:00 Insulin Glargine (Lantus) 10 units DAILY@0800 SC Last administered on 12/06/18 08:00; Admin Dose 10 UNITS; Start 11/26/18 at 08:00 Insulin Aspart (Novolog Insulin Pen) NOVOLOG *MILD* ALGORI... Q4 SC Last administered on 12/06/18at 05:09; Admin Dose 1 UNIT; Start 11/25/18 at 17:00 Albuterol/ Ipratropium (Duoneb) 3 ml Q6H RESP THERAPY PRN HHN SHORTNESS OF BREATH Last administered on 11/26/18at 20:17; Admin Dose 3 ML; Start 11/25/18 at 14:00 Acetaminophen (Tylenol Supp) 650 mg Q4H PRN [place] MILD PAIN(1-3) OR TEMP>38C Last administered on 12/02/18at 09:25; Admin Dose 650 MG; Start 11/25/18 at 14:00 Miscellaneous Information 1 ea NOTE XX ; Start 11/25/18 at 14:30 Glucose (Glutose) 15 gm Q15M PRN PO DECREASED GLUCOSE; Start 11/25/18 at 14:30 Glucose (Glutose) 22.5 gm Q15M PRN PO DECREASED GLUCOSE; Start 11/25/18 at 14:30 Dextrose (D50w Syringe) 25 ml Q15M PRN IV DECREASED GLUCOSE; Start 11/25/18 at 14:30 Dextrose (D50w Syringe) 50 ml Q15M PRN IV DECREASED GLUCOSE; Start 11/25/18 at 14:30 Glucagon (Glucagen) 1 mg Q15M PRN IM DECREASED GLUCOSE; Start 11/25/18 at 14:30 Glucose (Glutose) 15 gm Q15M PRN BUCCAL DECREASED GLUCOSE; Start 11/25/18 at 14:30 Budesonide (Pulmicort (Neb)) 0.5 mg BID RESP THERAPY HHN Last administered on 12/06/18at 09:24; Admin Dose 0.5 MG; Start 11/26/18 at 09:00 IV Flush (NS 10 ml) 10 ml PRN PRN IV IV PROTOCOL; Start 11/26/18 at 14:00 Metoprolol Tartrate (Lopressor) 5 mg Q4H PRN IV HR>110 Hold SBP<100 Last administered on 12/04/18at 09:35; Admin Dose 5 MG; Start 11/26/18 at 18:00 Levothyroxine Sodium (Synthroid) 125 mcg DAILY@06 PO Last administered on 12/04/18at 06:36; Admin Dose 125 MCG; Start 11/28/18 at 06:00 Albumin Human 100 ml @ 100 mls/hr DURING DIALYSIS PRN IV HYPOTENTION DURING HD Last administered on 12/03/18 10:51; Admin Dose 100 MLS/HR; Start 11/27/18 at 20:30 Acetaminophen (Tylenol Liquid) 650 mg Q4H PRN PO MILD PAIN(1-3)OR ELEVATED TEMP Last administered on 11/28/18 18:59; Admin Dose 650 MG; Start 11/28/18 at 16:00 Haloperidol (Haldol) 2 mg Q4 PRN IV AGITATION Last administered on 12/02/18 13:01; Admin Dose 2 MG; Start 11/29/18 at 12:00 Quetiapine Fumarate (Seroquel) 25 mg QHS PO Last administered on 12/05/18 20:49; Admin Dose 25 MG; Start 11/29/18 at 21:00 Pantoprazole (Protonix Tab) 40 mg DAILY@06 PO Last administered on 12/04/18 06:36; Admin Dose 40 MG; Start 11/30/18 at 06:00 Dextrose/Sodium Chloride 1,000 ml @ 40 mls/hr Q24H IV Last administered on 12/05/18 12:02; Admin Dose 40 MLS/HR; Start 11/30/18 at 12:30 Metoprolol Tartrate (Lopressor) 25 mg BID PO Last administered on 12/05/18 20:50; Admin Dose 25 MG; Start 12/02/18 at 09:00 Enalaprilat (Vasotec Iv) 1.25 mg Q2H PRN IV ELEVATED SYSTOLIC BP Last administered on 12/03/18 02:30; Admin Dose 1.25 MG; Start 12/03/18 at 00:30 Epoetin Kavon-epbx (RETACRIT(esrd)) 10,000 unit MoWeFr@1700 SC Last administered on 12/05/18 18:00; Admin Dose 10,000 UNIT; Start 12/03/18 at 17:00 Clonidine HCl (Catapres-Tts 2 Patch) 1 patch Q7D TRANSDERM Last administered on 12/03/18 14:25; Admin Dose 1 PATCH; Start 12/03/18 at 13:00 Docusate Sodium (Colace) 100 mg BID PRN PO CONSTIPATION; Start 12/05/18 at 19:00 CARMELO MAE Dec 06, 2018 13:35
--- NOTE | 2018-12-06 13:49 | PN ---
DATE: 12/06/2018 SUBJECTIVE: The patient remains confused, agitated. The patient has had minimal to no urinary outpu t. OBJECTIVE: VITAL SIGNS: Blood pressure is 153/70, pulse 75, temperature 98.5. HEENT: Head is normocephalic. NECK: Supple. HEART: Regular rate. LUNGS: Show diminished breath sounds at the base. ABDOMEN: Soft, nontender to palpation. No rebound or guarding. EXTREMITIES: Negative for clubbing, cyanosis, no edema. DERMATOLOGIC: No rashes. MUSCULOSKELETAL: No joint effusion. NEUROLOGIC: No change in exam. MEDICATIONS: The patient's medications have been reviewed. LABORATORY DATA: Has been reviewed. ASSESSMENT AND PLAN: 1. Oligoanuric acute kidney injury on top of chronic kidney disease stage IV with previous baseline creatinine around 3.0 mg/dL. Etiology of OMAR is secondary to acute tubular necrosis. The patient re esequiel dialysis dependent. There are no signs of renal recovery. Will continue to monitor closely. Patient may have progressed towards end-stage renal disease. The patient may require a Perm-A-Cath p lacement if there is no further renal improvement. 2. Anemia. Monitor hemoglobin and hematocrit levels. The patient has completed a course of IV iron . Continue Epogen. 3. Mineral bone disorder, monitor calcium and phosphorus levels. 4. Encephalopathy, etiology is toxic metabolic, improving. 5. Coronary artery disease. Continue medical management. 6. Diabetes. Continue current insulin regimen. 7. Hypothyroidism. Continue Synthroid. 8. History of atrial fibrillation. Continue medical management. 9. Thrombocytopenia. Continue to monitor. 10. Hypertension, improved. Dictated By: SUSY CISNEROS DO NR/NTS Conf#: [id number] DID#: [id number] CC: EVA LOPEZ MD; NEREIDA MCQUEEN MD;*EndCC*
--- NOTE | 2018-12-06 14:56 | CONS ---
Assessment/Plan Assessment/Plan Hospital Course 78 yo F with hx of ESRD on HD and other comorbidities who presents with ams in contest of respiratory sx. She was noted to be acutely encephalopathic following HD on 11/28, for which neurology is consulted. The clinical picture suggests an acute on chronic encephalopathy A focal HOME CARE ASSISTANT process is unlikely. MRI brain was technically limited, but was otherwise without obvious acute intracranial pathology. HCT on 11/25 was the same. EEG was without obvious epileptiform activity.. ammonia wnl, TSH nl, B12 ok P: Ok to defer additional neuroimaging for now. [place] as necessary Consider seroquel hs and prn Cont to limit other sedating medications where possible Cont medical management per primary Will follow Consultation Date/Type/Reason Admit Date/Time Nov 25, 2018 at 13:18 Type of Consult Neurology Reason for Consultation ams Requesting Provider: GENNY SULLIVAN Date/Time of Note DATE: 12/06/18 TIME: 14:55 24 HR Interval Summary Free Text/Dictation Continues acute care. S/p HD today. Pt remains calm, without wrist restraints. Exam Vital Signs Vitals Vital Signs Date Temp Pulse Resp B/P (MAP) Pulse Ox O2 O2 Flow FiO2 Time Delivery Rate 12/06/18 82 12:23 12/06/18 98.2 18 121/64 95 Nasal 11:35 (83) Cannula 12/06/18 5.0 09:30 Intake and Output 12/05/18 12/05/18 12/06/18 1515:00 23:00 07:00 IntakeIntake Total 440 ml 440 ml OutputOutput Total 200 ml 20 ml BalanceBalance 240 ml 420 ml Exam PE: Gen Appearance: Calm, NAD HEENT: Normocephalic Cardiovascular: Regular rate Abdomen: Soft Extremities: Dry NE: The patient was asleep though easily arousable to voice. Oriented to self and hospital. Fund of knowledge was limited. Cranial nerve examination was limited by mental status. Pupils were equal and reactive to light. There was no afferent pupillary defect. Funduscopic examination was limited. Face was grossly symmetric, w/ present corneal and cough reflexes. Tone was normal. Muscle bulk was normal. I did not see fasciculations. The patient was spontaneously moving all extremities, symmetrically. Coordination and gait testing was limited by mental status. Arm and leg reflexes were within normal limits and symmetric. Lai's sign was absent. Plantar responses were flexor. NICHO HENDRIX NP Dec 06, 2018 14:56
--- NOTE | 2018-12-06 15:54 | PN ---
Date/Time of Note Date/Time of Note DATE: 12/06/18 TIME: 15:52 Assessment/Plan VTE Prophylaxis Risk score (from [facility] [place] [facility])>0 risk: 13 SCD applied (from [facility] [place] [facility]): Yes SCD contraindicated: other Pharmacological prophylaxis: other Pharm contraindication: other Lines/Catheters IV Catheter Type (from [facility]): Trialysis catheter Urinary Cath still in place: Yes Reason Cath still needed: urinary retention Assessment/Plan Assessment/Plan 1. Oliguric acute kidney injury on top of chronic kidney disease stage IV with previous baseline creatinine around 2.0 mg/dL. Etiology of acute kidney injury was secondary to acute tubular necrosis due to hemodynamic sepsis. \ - HD per Nephrology -on case 2. Anemia, etiology is multifactorial secondary to chronic kidney disease, iron deficiency, questionable GI bleed. Patient is currently on IV iron on Epogen. - Continue to monitor CBC - Continue PPI. - per GI 3. Mineral bone disorder. Monitor calcium and phosphorus levels. 4. Encephalopathy. Etiology is toxic metabolic, possibly uremic. Continue to monitor. 5. Coronary artery disease. Continue medical management. 6. Diabetes. - Continue current insulin regimen. 7. Hypothyroidism. Continue Synthroid. 8. History of asthma. Continue current treatment plan. 9. History of atrial fibrillation. 10. Thrombocytopenia. Continue to monitor. 11. Hypertension. Blood pressure controlled. Plan of care discussed with Dr. Lind. Result Diagram: 12/06/18 0735 12/06/18 0735 Results 24hrs Laboratory Tests Test 12/05/18 17:57 12/05/18 20:46 12/06/18 00:51 12/06/18 04:54 Bedside Glucose 162 168 170 148 Test 12/06/18 07:35 12/06/18 09:16 12/06/18 12:18 White Blood Count 8.1 Red Blood Count 2.74 L Hemoglobin 8.2 L Hematocrit 26.4 L Mean Corpuscular 96.4 Volume Mean Corpuscular 29.9 Hemoglobin Mean Corpuscular 31.1 L Hemoglobin Concent Red Cell 16.0 H Distribution Width Platelet Count 114 L Mean Platelet Volume 11.5 H Immature 0.700 H Granulocytes % Neutrophils % 73.8 Lymphocytes % 9.6 L Monocytes % 13.7 H Eosinophils % 1.7 Basophils % 0.5 Nucleated Red Blood 0.0 Cells % Immature 0.060 H Granulocytes # Neutrophils # 5.9 Lymphocytes # 0.8 Monocytes # 1.1 H Eosinophils # 0.1 Basophils # 0.0 Nucleated Red Blood 0.0 Cells # Sodium Level 138 Potassium Level 3.9 Chloride Level 103 Carbon Dioxide Level 27 Anion Gap 8 Blood Urea Nitrogen 32 #H Creatinine 6.07 #H Est Glomerular Filtrat Rate mL/min Glucose Level 129 Calcium Level 8.2 L Phosphorus Level 5.2 H Magnesium Level 2.2 Bedside Glucose 135 119 Subjective 24 Hr Interval Summary Free Text/Dictation - nad - confused but stable - sp speech evaluation yesterday - no new events reported last night dw stafft Constitutional: requiring O2 Respiratory: no complaints Cardiovascular: no complaints Gastrointestinal: no complaints Exam/Review of Systems Exam Vitals Vital Signs Date Temp Pulse Resp B/P (MAP) Pulse Ox O2 O2 Flow FiO2 Time Delivery Rate 12/06/18 98.4 86 20 154/68 99 Nasal 15:33 (96) Cannula 12/06/18 5.0 09:30 Intake and Output 12/05/18 12/05/18 12/06/18 1515:00 23:00 07:00 IntakeIntake Total 440 ml 440 ml OutputOutput Total 200 ml 20 ml BalanceBalance 240 ml 420 ml Constitutional: alert Psych: nl mood/affect Eyes: nl lids, nl sclera Respiratory: clear to auscultation Cardiovascular: nl pulses, other Gastrointestinal: soft, non-tender Musculoskeletal: muscle weakness Extremities: normal pulses Neurological: confused Skin: nl turgor Results Results 24hrs Laboratory Tests Test 12/05/18 17:57 12/05/18 20:46 12/06/18 00:51 12/06/18 04:54 Bedside Glucose 162 168 170 148 Test 12/06/18 07:35 12/06/18 09:16 12/06/18 12:18 White Blood Count 8.1 Red Blood Count 2.74 L Hemoglobin 8.2 L Hematocrit 26.4 L Mean Corpuscular 96.4 Volume Mean Corpuscular 29.9 Hemoglobin Mean Corpuscular 31.1 L Hemoglobin Concent Red Cell 16.0 H Distribution Width Platelet Count 114 L Mean Platelet Volume 11.5 H Immature 0.700 H Granulocytes % Neutrophils % 73.8 Lymphocytes % 9.6 L Monocytes % 13.7 H Eosinophils % 1.7 Basophils % 0.5 Nucleated Red Blood 0.0 Cells % Immature 0.060 H Granulocytes # Neutrophils # 5.9 Lymphocytes # 0.8 Monocytes # 1.1 H Eosinophils # 0.1 Basophils # 0.0 Nucleated Red Blood 0.0 Cells # Sodium Level 138 Potassium Level 3.9 Chloride Level 103 Carbon Dioxide Level 27 Anion Gap 8 Blood Urea Nitrogen 32 #H Creatinine 6.07 #H Est Glomerular Filtrat Rate mL/min Glucose Level 129 Calcium Level 8.2 L Phosphorus Level 5.2 H Magnesium Level 2.2 Bedside Glucose 135 119 Medications Medication Current Medications Hydralazine HCl (Apresoline) 10 mg Q6H PRN IV SBP >160 Last administered on 12/04/18 13:26; Admin Dose 10 MG; Start 11/25/18 at 14:00 Ondansetron HCl (Zofran Inj) 4 mg Q4H PRN IV NAUSEA AND/OR VOMITING Last administered on 11/29/18at 01:10; Admin Dose 4 MG; Start 11/25/18 at 14:00 Insulin Glargine (Lantus) 10 units DAILY@0800 SC Last administered on 12/06/18at 08:00; Admin Dose 10 UNITS; Start 11/26/18 at 08:00 Insulin Aspart (Novolog Insulin Pen) NOVOLOG *MILD* ALGORI... Q4 SC Last administered on 12/06/18at 05:09; Admin Dose 1 UNIT; Start 11/25/18 at 17:00 Albuterol/ Ipratropium (Duoneb) 3 ml Q6H RESP THERAPY PRN HHN SHORTNESS OF BREATH Last administered on 11/26/18at 20:17; Admin Dose 3 ML; Start 11/25/18 at 14:00 Acetaminophen (Tylenol Supp) 650 mg Q4H PRN [place] MILD PAIN(1-3) OR TEMP>38C Last administered on 12/02/18at 09:25; Admin Dose 650 MG; Start 11/25/18 at 14:00 Miscellaneous Information 1 ea NOTE XX ; Start 11/25/18 at 14:30 Glucose (Glutose) 15 gm Q15M PRN PO DECREASED GLUCOSE; Start 11/25/18 at 14:30 Glucose (Glutose) 22.5 gm Q15M PRN PO DECREASED GLUCOSE; Start 11/25/18 at 14:30 Dextrose (D50w Syringe) 25 ml Q15M PRN IV DECREASED GLUCOSE; Start 11/25/18 at 14:30 Dextrose (D50w Syringe) 50 ml Q15M PRN IV DECREASED GLUCOSE; Start 11/25/18 at 14:30 Glucagon (Glucagen) 1 mg Q15M PRN IM DECREASED GLUCOSE; Start 11/25/18 at 14:30 Glucose (Glutose) 15 gm Q15M PRN BUCCAL DECREASED GLUCOSE; Start 11/25/18 at 14:30 Budesonide (Pulmicort (Neb)) 0.5 mg BID RESP THERAPY HHN Last administered on 12/06/18 09:24; Admin Dose 0.5 MG; Start 11/26/18 at 09:00 IV Flush (NS 10 ml) 10 ml PRN PRN IV IV PROTOCOL; Start 11/26/18 at 14:00 Metoprolol Tartrate (Lopressor) 5 mg Q4H PRN IV HR>110 Hold SBP<100 Last administered on 12/04/18 09:35; Admin Dose 5 MG; Start 11/26/18 at 18:00 Levothyroxine Sodium (Synthroid) 125 mcg DAILY@06 PO Last administered on 12/04/18 06:36; Admin Dose 125 MCG; Start 11/28/18 at 06:00 Albumin Human 100 ml @ 100 mls/hr DURING DIALYSIS PRN IV HYPOTENTION DURING HD Last administered on 12/03/18 10:51; Admin Dose 100 MLS/HR; Start 11/27/18 at 20:30 Acetaminophen (Tylenol Liquid) 650 mg Q4H PRN PO MILD PAIN(1-3)OR ELEVATED TEMP Last administered on 11/28/18at 18:59; Admin Dose 650 MG; Start 11/28/18 at 16:00 Haloperidol (Haldol) 2 mg Q4 PRN IV AGITATION Last administered on 12/02/18 13:01; Admin Dose 2 MG; Start 11/29/18 at 12:00 Quetiapine Fumarate (Seroquel) 25 mg QHS PO Last administered on 12/05/18 20:49; Admin Dose 25 MG; Start 11/29/18 at 21:00 Pantoprazole (Protonix Tab) 40 mg DAILY@06 PO Last administered on 12/04/18 06:36; Admin Dose 40 MG; Start 11/30/18 at 06:00 Dextrose/Sodium Chloride 1,000 ml @ 40 mls/hr Q24H IV Last administered on 12/06/18 12:30; Admin Dose 40 MLS/HR; Start 11/30/18 at 12:30 Metoprolol Tartrate (Lopressor) 25 mg BID PO Last administered on 12/05/18 20:50; Admin Dose 25 MG; Start 12/02/18 at 09:00 Enalaprilat (Vasotec Iv) 1.25 mg Q2H PRN IV ELEVATED SYSTOLIC BP Last administered on 12/03/18 02:30; Admin Dose 1.25 MG; Start 12/03/18 at 00:30 Epoetin Kavon-epbx (RETACRIT(esrd)) 10,000 unit MoWeFr@1700 SC Last administered on 12/05/18 18:00; Admin Dose 10,000 UNIT; Start 12/03/18 at 17:00 Clonidine HCl (Catapres-Tts 2 Patch) 1 patch Q7D TRANSDERM Last administered on 12/03/18at 14:25; Admin Dose 1 PATCH; Start 12/03/18 at 13:00 Docusate Sodium (Colace) 100 mg BID PRN PO CONSTIPATION; Start 12/05/18 at 19:00 JODI HANSON Dec 06, 2018 15:54
[2018-12-06] MEDS: QUETIAPINE 25 MG TAB PO SCH (21:27)
[2018-12-07] VITALS (14 sets, daily range): BP systolic 125–191; BP diastolic 63–82; PULSE 70–146; RESP 18–23
[2018-12-07] MEDS: INSULIN ASPART [NOVOLOG] 3 ML PEN SC SCH ×6 (01:37→21:00)
[2018-12-07] MEDS: PANTOPRAZOLE (EC) 40 MG TAB PO SCH (06:00)
[2018-12-07] MEDS: LEVOTHYROXINE 125 MCG TAB PO SCH (06:00)
--- NOTE | 2018-12-07 08:13 | CONS ---
Assessment/Plan Assessment/Plan Hospital Course (Demo Recall) 78-year-old female with a history of hypertension, CHF, chronic kidney disease, diabetes mellitus, pulmonary embolism, status post surgery, atrial fibrillation admitted originally to [facility] for respiratory failure, transferred to [place]. At [place] pt was found to be hypotensive and transferred to [facility]. We were consulted for anemia and positive guaiac stool Interval hx: No signs of GI bleeding. Capsule endoscopy and EGD reports from [facility] are unremarkable. No labs drawn this am. HH stable with slight trend downward. Iron, TIBC and iron saturation are low with elevate ferritin in 400s 1. Anemia due to the chronic gastrointestinal blood loss and also chronic disease. 2. Diabetes mellitus. 3. Thrombocytopenia. 4. Bronchial asthma. 5. Atrial fibrillation. 6. Acute on chronic renal failure 7. Mildly elevated CEA at 6.6 Plan Monitor HH and for active GI bleeding FOB Pt needs colonoscopy since CEA elevated and positive FOB and family hx of colon cancer Pt examined and plan of care discussed with Dr. Schaffer Consultation Date/Type/Reason Admit Date/Time Nov 25, 2018 at 13:18 Initial Consult Date 11/26/18 Requesting Provider: GENNY SULLIVAN Date/Time of Note DATE: 12/07/18 TIME: 08:11 Exam/Review of Systems Exam Vitals Vital Signs Date Temp Pulse Resp B/P (MAP) Pulse Ox O2 O2 Flow FiO2 Time Delivery Rate 12/07/18 98.4 70 18 159/70 97 07:12 (99) 12/07/18 5.0 03:58 12/06/18 Nasal 23:04 Cannula Intake and Output 12/06/18 12/06/18 12/07/18 1515:00 23:00 07:00 IntakeIntake Total 440 ml OutputOutput Total 1600 ml BalanceBalance -1600 ml 440 ml Constitutional: alert, oriented Psych: no complaints Head: normocephalic Eyes: PERRL Respiratory: other (non labored breathing) Gastrointestinal: soft, non-tender Musculoskeletal: nl extremities to inspection, muscle weakness Extremities: normal pulses Neurological: nl mental status Results Result Diagram: 12/06/18 0735 12/06/18 0735 Results 24hrs Laboratory Tests Test 12/06/18 09:16 12/06/18 12:18 12/06/18 17:01 12/06/18 21:13 Bedside Glucose 135 119 150 162 Test 12/07/18 01:33 12/07/18 04:22 12/07/18 07:57 Bedside Glucose 172 154 160 Medications Medication Current Medications Hydralazine HCl (Apresoline) 10 mg Q6H PRN IV SBP >160 Last administered on 12/04/18 13:26; Admin Dose 10 MG; Start 11/25/18 at 14:00 Ondansetron HCl (Zofran Inj) 4 mg Q4H PRN IV NAUSEA AND/OR VOMITING Last administered on 11/29/18 01:10; Admin Dose 4 MG; Start 11/25/18 at 14:00 Insulin Glargine (Lantus) 10 units DAILY@0800 SC Last administered on 12/06/18 08:00; Admin Dose 10 UNITS; Start 11/26/18 at 08:00 Insulin Aspart (Novolog Insulin Pen) NOVOLOG *MILD* ALGORI... Q4 SC Last administered on 12/07/18at 04:28; Admin Dose 1 UNIT; Start 11/25/18 at 17:00 Albuterol/ Ipratropium (Duoneb) 3 ml Q6H RESP THERAPY PRN HHN SHORTNESS OF BREATH Last administered on 11/26/18at 20:17; Admin Dose 3 ML; Start 11/25/18 at 14:00 Acetaminophen (Tylenol Supp) 650 mg Q4H PRN [place] MILD PAIN(1-3) OR TEMP>38C Last administered on 12/02/18at 09:25; Admin Dose 650 MG; Start 11/25/18 at 14:00 Miscellaneous Information 1 ea NOTE XX ; Start 11/25/18 at 14:30 Glucose (Glutose) 15 gm Q15M PRN PO DECREASED GLUCOSE; Start 11/25/18 at 14:30 Glucose (Glutose) 22.5 gm Q15M PRN PO DECREASED GLUCOSE; Start 11/25/18 at 14:30 Dextrose (D50w Syringe) 25 ml Q15M PRN IV DECREASED GLUCOSE; Start 11/25/18 at 14:30 Dextrose (D50w Syringe) 50 ml Q15M PRN IV DECREASED GLUCOSE; Start 11/25/18 at 14:30 Glucagon (Glucagen) 1 mg Q15M PRN IM DECREASED GLUCOSE; Start 11/25/18 at 14:30 Glucose (Glutose) 15 gm Q15M PRN BUCCAL DECREASED GLUCOSE; Start 11/25/18 at 14:30 Budesonide (Pulmicort (Neb)) 0.5 mg BID RESP THERAPY HHN Last administered on 12/06/18 20:29; Admin Dose 0.5 MG; Start 11/26/18 at 09:00 IV Flush (NS 10 ml) 10 ml PRN PRN IV IV PROTOCOL; Start 11/26/18 at 14:00 Metoprolol Tartrate (Lopressor) 5 mg Q4H PRN IV HR>110 Hold SBP<100 Last administered on 12/04/18 09:35; Admin Dose 5 MG; Start 11/26/18 at 18:00 Levothyroxine Sodium (Synthroid) 125 mcg DAILY@06 PO Last administered on 12/04/18 06:36; Admin Dose 125 MCG; Start 11/28/18 at 06:00 Albumin Human 100 ml @ 100 mls/hr DURING DIALYSIS PRN IV HYPOTENTION DURING HD Last administered on 12/03/18 10:51; Admin Dose 100 MLS/HR; Start 11/27/18 at 20:30 Acetaminophen (Tylenol Liquid) 650 mg Q4H PRN PO MILD PAIN(1-3)OR ELEVATED TEMP Last administered on 11/28/18 18:59; Admin Dose 650 MG; Start 11/28/18 at 16:00 Haloperidol (Haldol) 2 mg Q4 PRN IV AGITATION Last administered on 12/02/18 13:01; Admin Dose 2 MG; Start 11/29/18 at 12:00 Quetiapine Fumarate (Seroquel) 25 mg QHS PO Last administered on 12/06/18 21:27; Admin Dose 25 MG; Start 11/29/18 at 21:00 Pantoprazole (Protonix Tab) 40 mg DAILY@06 PO Last administered on 12/04/18 06:36; Admin Dose 40 MG; Start 11/30/18 at 06:00 Dextrose/Sodium Chloride 1,000 ml @ 40 mls/hr Q24H IV Last administered on 12/06/18 12:30; Admin Dose 40 MLS/HR; Start 11/30/18 at 12:30 Metoprolol Tartrate (Lopressor) 25 mg BID PO Last administered on 12/06/18 21:27; Admin Dose 25 MG; Start 12/02/18 at 09:00 Enalaprilat (Vasotec Iv) 1.25 mg Q2H PRN IV ELEVATED SYSTOLIC BP Last administered on 12/03/18at 02:30; Admin Dose 1.25 MG; Start 12/03/18 at 00:30 Epoetin Akvon-epbx (RETACRIT(esrd)) 10,000 unit MoWeFr@1700 SC Last administered on 12/05/18at 18:00; Admin Dose 10,000 UNIT; Start 12/03/18 at 17:00 Clonidine HCl (Catapres-Tts 2 Patch) 1 patch Q7D TRANSDERM Last administered on 12/03/18at 14:25; Admin Dose 1 PATCH; Start 12/03/18 at 13:00 Docusate Sodium (Colace) 100 mg BID PRN PO CONSTIPATION; Start 12/05/18 at 19:00 SOLOMON BYRD Dec 07, 2018 08:13
[2018-12-07] MEDS: METOPROLOL 25 MG TAB PO SCH (09:00)
[2018-12-07] MEDS: INSULIN GLARGINE [LANTus] (100 UNITS/ML) SYG SC SCH (09:03)
--- NOTE | 2018-12-07 09:34 | PN ---
DATE: 12/07/2018 SUBJECTIVE: The patient is stable, no events overnight. No fevers, chills, nausea, vomiting. OBJECTIVE: VITAL SIGNS: Blood pressure is 159/70, pulse 73, respiration 18, temperature 98.4. HEENT: Head is normocephalic. NECK: Supple. HEART: Regular rate. LUNGS: Show diminished breath sounds at base. ABDOMEN: Soft, nontender to palpation without rebound or guarding. EXTREMITIES: Negative for clubbing, cyanosis, no edema. DERMATOLOGIC: No rashes. MUSCULOSKELETAL: No joint effusion. NEUROLOGIC: No change in exam. MEDICATIONS: Have been reviewed. LABORATORY DATA: Has been reviewed. ASSESSMENT AND PLAN: 1. Oliguric acute injury on top of chronic kidney disease stage IV with previous baseline creatinine around 3.0 mg/dL. Etiology of acute kidney injury is secondary to acute tubular necrosis with possi ble progression of underlying chronic kidney disease. The patient currently is dialysis dependent, n o signs of renal recovery. The patient will likely require Perm-A-Cath placement. We will discuss w ith the patient's family. 2. Anemia. Continue to monitor hemoglobin and hematocrit levels. The patient is completing course of IV iron. Continue Epogen. 3. Mineral bone disorder, monitor calcium and phosphorus levels. 4. Encephalopathy, etiology is toxic metabolic. 5. Coronary artery disease. Continue medical management. 6. Diabetes. Continue current insulin regimen. 7. Hypothyroidism. Continue Synthroid. 8. History of atrial fibrillation. 9. Thrombocytopenia. Continue to monitor. 10. Hypertension, improved. Dictated By: SUSY ABARCA/STEPHEN Conf#: [id number] DID#: [id number] CC: NEREIDA MCQUEEN MD;*EndCC*
[2018-12-07] MEDS: BUDESONIDE (NEB) 0.5MG/2ML AMP HHN SCH ×2 (09:39→20:12)
[2018-12-07] MEDS: DEXTROSE 5%-0.45% NACL 1,000 ML IV SCH ×2 (12:15→18:27)
[2018-12-07] MEDS: LORAZEPAM 2 MG INJ IV PRN ×2 (12:39→23:23)
--- NOTE | 2018-12-07 14:26 | CONS ---
Assessment/Plan Assessment/Plan Hospital Course (Demo Recall) IMPRESSION: 1. Hypotension-overall improved and not on pressors currently and now HTN requiring medications 2. Atrial fibrillation, primarily rate controlled off of antihypertensives at this time. 3. Anemia, worsening with guaiac positive stool consistent with gastrointestinal bleed. 4. Diabetes mellitus. 5. Acute on chronic renal failure,now on hemodialysis. 6. Altered mental state. 7. Diastolic congestive heart failure due to a preserved EF by most recent echo and findings by chest x-ray. 8. History of coronary artery disease, nonobstructive by outside hospital catheterization. 9. Shortness of breath with hypothyroidism. 10. Diabetes mellitus. 11.UTI Recc: -Continue BB/clonidine TTS with slight increase and follow BP closely -HD for volume removal -Follow HR/rhythm closely -not on anticoagulation secondary to GIB/anemia requiring transfusion -to undergo endoscopy -having removal of troy and placement of permacath today Consultation Date/Type/Reason Admit Date/Time Nov 25, 2018 at 13:18 Initial Consult Date 11/26/18 Type of Consult Cardiology Reason for Consultation AF Requesting Provider: GENNY SULLIVAN Date/Time of Note DATE: 12/07/18 TIME: 14:24 Exam/Review of Systems Vital Signs Vitals Vital Signs Date Temp Pulse Resp B/P (MAP) Pulse Ox O2 O2 Flow FiO2 Time Delivery Rate 12/07/18 91 125/82 13:26 (96) 12/07/18 98.4 19 91 11:59 12/07/18 21 09:51 12/07/18 Nasal 09:48 Cannula 12/07/18 3.0 08:58 Intake and Output 12/06/18 12/06/18 12/07/18 1515:00 23:00 07:00 IntakeIntake Total 440 ml OutputOutput Total 1600 ml BalanceBalance -1600 ml 440 ml Exam Exam Review of Systems: CONSTITUTIONAL: No fevers, chills. PULMONARY: No sob CARDIOVASCULAR: No chest pain/palpitations GASTROINTESTINAL: No nausea/vomiting. GENITOURINARY: No hematuria/dysuria. MUSCULOSKELETAL: No myagias/arthalgias. PSYCHIATRIC: The patient denies depression. NEUROLOGIC: No weakness Constitutional: alert, oriented Psych: no complaints Head: normocephalic ENMT: mucosa pink and moist Neck: supple, jvd (9 cm water) Respiratory: diminished breath sounds (at bases/B) Cardiovascular: regular rate and rhythm Gastrointestinal: soft, non-tender Musculoskeletal: muscle tone (normal) Extremities: pitting pedal edema (trace/B) Neurological: other (No focal deficits) Labs Result Diagram: 12/06/18 0735 12/06/18 0735 Results 24hrs Laboratory Tests Test 12/06/18 17:01 12/06/18 21:13 12/07/18 01:33 12/07/18 04:22 Bedside Glucose 150 162 172 154 Test 12/07/18 07:57 12/07/18 12:49 Bedside Glucose 160 177 Medications Medications Current Medications Hydralazine HCl (Apresoline) 10 mg Q6H PRN IV SBP >160 Last administered on 12/04/18 13:26; Admin Dose 10 MG; Start 11/25/18 at 14:00 Ondansetron HCl (Zofran Inj) 4 mg Q4H PRN IV NAUSEA AND/OR VOMITING Last administered on 11/29/18 01:10; Admin Dose 4 MG; Start 11/25/18 at 14:00 Insulin Glargine (Lantus) 10 units DAILY@0800 SC Last administered on 12/07/18 09:03; Admin Dose 10 UNITS; Start 11/26/18 at 08:00 Insulin Aspart (Novolog Insulin Pen) NOVOLOG *MILD* ALGORI... Q4 SC Last administered on 12/07/18 13:21; Admin Dose 1 UNIT; Start 11/25/18 at 17:00 Albuterol/ Ipratropium (Duoneb) 3 ml Q6H RESP THERAPY PRN HHN SHORTNESS OF BREATH Last administered on 11/26/18at 20:17; Admin Dose 3 ML; Start 11/25/18 at 14:00 Acetaminophen (Tylenol Supp) 650 mg Q4H PRN [place] MILD PAIN(1-3) OR TEMP>38C Last administered on 12/02/18 09:25; Admin Dose 650 MG; Start 11/25/18 at 14:00 Miscellaneous Information 1 ea NOTE XX ; Start 11/25/18 at 14:30 Glucose (Glutose) 15 gm Q15M PRN PO DECREASED GLUCOSE; Start 11/25/18 at 14:30 Glucose (Glutose) 22.5 gm Q15M PRN PO DECREASED GLUCOSE; Start 11/25/18 at 14:30 Dextrose (D50w Syringe) 25 ml Q15M PRN IV DECREASED GLUCOSE; Start 11/25/18 at 14:30 Dextrose (D50w Syringe) 50 ml Q15M PRN IV DECREASED GLUCOSE; Start 11/25/18 at 14:30 Glucagon (Glucagen) 1 mg Q15M PRN IM DECREASED GLUCOSE; Start 11/25/18 at 14:30 Glucose (Glutose) 15 gm Q15M PRN BUCCAL DECREASED GLUCOSE; Start 11/25/18 at 14:30 Budesonide (Pulmicort (Neb)) 0.5 mg BID RESP THERAPY HHN Last administered on 12/07/18at 09:39; Admin Dose 0.5 MG; Start 11/26/18 at 09:00 IV Flush (NS 10 ml) 10 ml PRN PRN IV IV PROTOCOL; Start 11/26/18 at 14:00 Metoprolol Tartrate (Lopressor) 5 mg Q4H PRN IV HR>110 Hold SBP<100 Last ad ministered on 12/04/18at 09:35; Admin Dose 5 MG; Start 11/26/18 at 18:00 Levothyroxine Sodium (Synthroid) 125 mcg DAILY@06 PO Last administered on 12/04/18at 06:36; Admin Dose 125 MCG; Start 11/28/18 at 06:00 Albumin Human 100 ml @ 100 mls/hr DURING DIALYSIS PRN IV HYPOTENTION DURING HD Last administered on 12/03/18at 10:51; Admin Dose 100 MLS/HR; Start 11/27/18 at 20:30 Acetaminophen (Tylenol Liquid) 650 mg Q4H PRN PO MILD PAIN(1-3)OR ELEVATED TEMP Last administered on 11/28/18at 18:59; Admin Dose 650 MG; Start 11/28/18 at 16:00 Haloperidol (Haldol) 2 mg Q4 PRN IV AGITATION Last administered on 12/02/18at 13:01; Admin Dose 2 MG; Start 11/29/18 at 12:00 Quetiapine Fumarate (Seroquel) 25 mg QHS PO Last administered on 12/06/18 21:27; Admin Dose 25 MG; Start 11/29/18 at 21:00 Pantoprazole (Protonix Tab) 40 mg DAILY@06 PO Last administered on 12/04/18 06:36; Admin Dose 40 MG; Start 11/30/18 at 06:00 Dextrose/Sodium Chloride 1,000 ml @ 40 mls/hr Q24H IV Last administered on 12/06/18 12:30; Admin Dose 40 MLS/HR; Start 11/30/18 at 12:30 Metoprolol Tartrate (Lopressor) 25 mg BID PO Last administered on 12/06/18 21:27; Admin Dose 25 MG; Start 12/02/18 at 09:00 Enalaprilat (Vasotec Iv) 1.25 mg Q2H PRN IV ELEVATED SYSTOLIC BP Last administered on 12/03/18 02:30; Admin Dose 1.25 MG; Start 12/03/18 at 00:30 Epoetin Kavon-epbx (RETACRIT(esrd)) 10,000 unit MoWeFr@1700 SC Last administered on 12/05/18 18:00; Admin Dose 10,000 UNIT; Start 12/03/18 at 17:00 Clonidine HCl (Catapres-Tts 2 Patch) 1 patch Q7D TRANSDERM Last administered on 12/03/18 14:25; Admin Dose 1 PATCH; Start 12/03/18 at 13:00 Docusate Sodium (Colace) 100 mg BID PRN PO CONSTIPATION; Start 12/05/18 at 19:00 Lorazepam (Ativan) 0.5 mg Q8H PRN IV AGITATION Last administered on 12/07/18at 12:39; Admin Dose 0.5 MG; Start 12/07/18 at 12:30 CARMELO MAE Dec 07, 2018 14:26
--- NOTE | 2018-12-07 15:06 | CONS ---
Assessment/Plan Assessment/Plan Hospital Course 78 yo F with hx of ESRD on HD and other comorbidities who presents with ams in contest of respiratory sx. She was noted to be acutely encephalopathic following HD on 11/28, for which neurology is consulted. The clinical picture suggests an acute on chronic encephalopathy A focal PROMOTIONS REPRESENTATIVE process is unlikely. MRI brain was technically limited, but was otherwise without obvious acute intracranial pathology. HCT on 11/25 was the same. EEG was without obvious epileptiform activity.. ammonia wnl, TSH nl, B12 ok P: Ok to defer additional neuroimaging for now. [place] as necessary Consider seroquel hs and prn Cont to limit other sedating medications where possible Cont medical management per primary Will follow Consultation Date/Type/Reason Admit Date/Time Nov 25, 2018 at 13:18 Type of Consult Neurology Reason for Consultation ams Requesting Provider: GENNY SULLIVAN Date/Time of Note DATE: 12/07/18 TIME: 15:06 24 HR Interval Summary Free Text/Dictation Continues acute care. No changes in pt condition reported. Exam Vital Signs Vitals Vital Signs Date Temp Pulse Resp B/P (MAP) Pulse Ox O2 O2 Flow FiO2 Time Delivery Rate 12/07/18 91 125/82 13:26 (96) 12/07/18 98.4 19 91 11:59 12/07/18 21 09:51 12/07/18 Nasal 09:48 Cannula 12/07/18 3.0 08:58 Intake and Output 12/06/18 12/06/18 12/07/18 1515:00 23:00 07:00 IntakeIntake Total 440 ml OutputOutput Total 1600 ml BalanceBalance -1600 ml 440 ml Exam PE: Gen Appearance: Calm, NAD HEENT: Normocephalic Cardiovascular: Regular rate Abdomen: Soft Extremities: Dry NE: The patient was asleep though easily arousable to voice. Oriented to self and hospital. Fund of knowledge was limited. Cranial nerve examination was limited by mental status. Pupils were equal and reactive to light. There was no afferent pupillary defect. Funduscopic examination was limited. Face was grossly symmetric, w/ present corneal and cough reflexes. Tone was normal. Muscle bulk was normal. I did not see fasciculations. The patient was spontaneously moving all extremities, symmetrically. Coordination and gait testing was limited by mental status. Arm and leg reflexes were within normal limits and symmetric. Lai's sign was absent. Plantar responses were flexor. NICHO HENDRIX NP Dec 07, 2018 15:06
[2018-12-07] MEDS ORDERED: MIDAZOLAM 1 MG/ML 2 ML INJ ONE (15:29)
[2018-12-07] MEDS ORDERED: LIDOCAINE 1% (MDV) 20 ML INJ ONE (15:29)
--- NOTE | 2018-12-07 16:34 | HPN ---
Date/Time of Note Date/Time of Note DATE: 12/07/18 TIME: 16:34 Interval H&P Admission Note Pt. seen H&P reviewed: No system changes FLAKO HAYNES MD Dec 07, 2018 16:34
--- NOTE | 2018-12-07 17:35 | RADRPT ---
PROCEDURE: PLACEMENT OF RIGHT INTERNAL JUGULAR VENOUS TUNNELED DIALYSIS CATHETER. CLINICAL INDICATION: Renal failure. TECHNIQUE: Prior to the procedure, informed consent was obtained. Risks including bleeding, infection, and pneum othorax were explained to the patient and/or the patient's family. The patient and/or the patient's f amily understood and was willing to proceed. A procedural pause was performed. The patient's name, da te of , and procedure to be performed were verified. The central line was inserted with all [place] ents of maximal sterile barrier technique. All of the following were used: head covering, facial mask , sterile gown, sterile gloves, a large sterile sheet, hand hygiene, and 2% chlorhexidine for cutane ous antisepsis. The right neck and anterior/superior chest wall was prepped and draped in usual ster ile fashion. Limited sonography of the right neck was then performed. Noted is a patent right internal jugular vei n. Ultrasound images were recorded and stored in the patient's medical record. Following the local injection of Xylocaine, the right internal jugular vein was punctured under sonog raphic guidance with a 20-gauge needle through which a 0.018 inch floppy tip guidewire was advanced i nto the superior vena cava. The tract was dilated to 5 Swiss and the wire was then replaced with a 0 .035 in Amplatz guidewire. A tunnel was then created from the anterior lateral aspect of the superio r right chest wall to the puncture site in the neck and the catheter was pulled through the tract. S erial dilatation was then performed and a 16 Swiss peel away sheath was introduced. The 14.5 Swiss 23cm tip to cuff Angiodynamics BioFlo DuraMax dialysis catheter was advanced through the 16 Swiss p eel-away sheath. The tip of the catheter was confirmed in position within the right atrium. The peel- away sheath was removed. The 2 ports were each flushed with 2.3 ml of 1:1000 heparin. The catheter w as secured to the skin with 2-0 silk. The wound in the neck was closed with 4-0 Vicryl suture using subcuticular running technique. The site was dressed. The patient tolerated the proced ure well. Specimens: None. Blood loss: 5 ml. Complications: None. Manager Call: Hilario - canvas shop laborer staff. Anesthesia: Local and moderate sedation. Graft/Implant: Tunneled dialysis catheter. COMPARISON: None. FINDINGS: Final radiographic images demonstrate the tip of the catheter in the upper right atrium. A total of 0.1 minutes of fluoroscopy time was used. The ultrasound images demonstrate the needle entering the jugular vein. Ultrasound images were recorded and stored in the patient's medical record. 5 series o f images of the chest were obtained with image intensifier. IMPRESSION: 1. Percutaneous insertion of right internal jugular dialysis tunneled dialysis catheter under fluoros copic and sonographic guidance. RPTAT: QQ .Joe Rod MD, Date Time Electronically viewed and signed by .Joe Rod MD, on 12/07/2018 17:35 .R/
[2018-12-07] MEDS: EPOETIN ALFA-EPBX (ESRD) 10,000 UNIT/ML VIAL SC SCH (17:56)
[2018-12-07] MEDS: QUETIAPINE 25 MG TAB PO SCH (21:49)
[2018-12-07] MEDS: METOPROLOL 50 MG TAB PO SCH (21:50)
[2018-12-08] VITALS (36 sets, daily range): BP systolic 125–210; BP diastolic 66–125; PULSE 81–172; RESP 17–21
[2018-12-08] MEDS: INSULIN ASPART [NOVOLOG] 3 ML PEN SC SCH ×6 (01:00→20:51)
[2018-12-08] MEDS: LEVOTHYROXINE 125 MCG TAB PO SCH (06:10)
[2018-12-08] MEDS: PANTOPRAZOLE (EC) 40 MG TAB PO SCH (06:10)
[2018-12-08] MEDS: BUDESONIDE (NEB) 0.5MG/2ML AMP HHN SCH ×2 (08:12→20:55)
--- NOTE | 2018-12-08 08:43 | CONS ---
Assessment/Plan Assessment/Plan Hospital Course 78 yo F with hx of ESRD on HD and other comorbidities who presents with ams in contest of respiratory sx. She was noted to be acutely encephalopathic following HD on 11/28, for which neurology is consulted. The clinical picture suggests an acute on chronic encephalopathy A focal PROGRAM MANAGER process is unlikely. MRI brain was technically limited, but was otherwise without obvious acute intracranial pathology. HCT on 11/25 was the same. EEG was without obvious epileptiform activity.. ammonia wnl, TSH nl, B12 ok P: Ok to defer additional neuroimaging for now. [place] as necessary Consider seroquel hs and prn Cont to limit other sedating medications where possible Cont medical management per primary Will follow Consultation Date/Type/Reason Admit Date/Time Nov 25, 2018 at 13:18 Type of Consult Neurology Reason for Consultation ams Requesting Provider: GENNY SULLIVAN Date/Time of Note DATE: 12/08/18 TIME: 08:43 24 HR Interval Summary Free Text/Dictation Continues acute care. No changes in pt condition reported Exam Vital Signs Vitals Vital Signs Date Temp Pulse Resp B/P (MAP) Pulse Ox O2 O2 Flow FiO2 Time Delivery Rate 12/08/18 Nasal 3.0 08:11 Cannula 12/08/18 97.7 124 20 125/79 94 07:12 (94) 12/07/18 21 09:51 Intake and Output 12/07/18 12/07/18 12/08/18 1515:00 23:00 07:00 IntakeIntake Total 360 ml 480 ml OutputOutput Total 200 ml 50 ml BalanceBalance 160 ml 430 ml Exam PE: Gen Appearance: Calm, NAD HEENT: Normocephalic Cardiovascular: Regular rate Abdomen: Soft Extremities: Dry NE: The patient was awake and alert. Oriented to self and hospital. Fund of knowledge was limited. Cranial nerve examination was limited by mental status. Pupils were equal and reactive to light. There was no afferent pupillary defect. Funduscopic examination was limited. Face was grossly symmetric, w/ present corneal and cough reflexes. Tone was normal. Muscle bulk was normal. I did not see fasciculations. The patient had symmetric movement of her extremities. Coordination and gait testing was limited by mental status. Arm and leg reflexes were within normal limits and symmetric. Lai's sign was absent. Plantar responses were flexor. NICHO HENDRIX MANUFACTURERS REPRESENTATIVE Dec 08, 2018 08:43
[2018-12-08] MEDS: METOPROLOL 50 MG TAB PO SCH ×2 (08:54→20:42)
[2018-12-08] MEDS: INSULIN GLARGINE [LANTus] (100 UNITS/ML) SYG SC SCH (09:06)
--- NOTE | 2018-12-08 09:47 | PN ---
DATE: 12/08/2018 SUBJECTIVE: The patient is stable, no events overnight. The patient had a PermCath placed and is sc heduled for dialysis today. OBJECTIVE: VITAL SIGNS: Blood pressure is 125/79, pulse 100, respirations 20, temperature 97.7. HEENT: Head is normocephalic. NECK: Supple. HEART: Regular rate. LUNGS: Show diminished breath sounds at the base. ABDOMEN: Soft, nontender to palpation without rebound or guarding. EXTREMITIES: Negative for clubbing, cyanosis, no edema. DERMATOLOGIC: No rashes. MUSCULOSKELETAL: No joint effusions. NEUROLOGIC: No change in exam. MEDICATIONS: The patient's medications have been reviewed. LABORATORY DATA: Has been reviewed. ASSESSMENT AND PLAN: 1. Oliguric acute kidney injury on top of chronic kidney disease stage IV, now likely end-stage yamilka l disease. The patient is status post PermCath placement. The patient has no signs of renal recover y, continue intermittent hemodialysis. 2. Anemia. Monitor hemoglobin and hematocrit levels. The patient is completing a course of IV iron . Continue Epogen. 3. Mineral bone disorder, monitor calcium and phosphorus levels. 4. Encephalopathy, etiology is toxic metabolic. 5. Coronary artery disease. Continue medical management. 6. Diabetes. Continue current insulin regimen. 7. Hypothyroidism. Continue Synthroid. 8. History of atrial fibrillation. 9. Thrombocytopenia. Continue to monitor. 10. Hypertension, improved. Continue current blood pressure regimen. Continue ultrafiltration dial ysis. 11. Tachyarrhythmia. Continue to monitor. Dictated By: SUSY CISNEROS DO NR/NTS Conf#: [id number] DID#: [id number] CC: NEREIDA MCQUEEN MD; EVA LOPEZ MD;*EndCC*
--- NOTE | 2018-12-08 10:09 | CONS ---
Consult Date/Type/Reason Admit Date/Time Nov 25, 2018 at 13:18 Initial Consult Date 11/26/18 Requesting Provider: GENNY SULLIVAN Date/Time of Note DATE: 12/08/18 TIME: 10:07 Subjective NO acute events - -pt in HD now - tachy in a. fib, but no symptoms - allow to finish HD now. ROS: No fever, no chills, no nausea, no vomiting, no diarrhea/constipation No recent weight changes No chest pain, no PND, no orthopnea - chronic SOB No dizziness, blurred vision No thirst, no heat or cold intolerance Objective Vitals Vital Signs Date Temp Pulse Resp B/P (MAP) Pulse Ox O2 O2 Flow FiO2 Time Delivery Rate 12/08/18 109 09:25 12/08/18 18 125/79 94 Nasal 2.0 09:05 (94) Cannula 12/08/18 97.7 07:12 12/07/18 21 09:51 Intake and Output 12/07/18 12/07/18 12/08/18 1515:00 23:00 07:00 IntakeIntake Total 360 ml 480 ml OutputOutput Total 200 ml 50 ml BalanceBalance 160 ml 430 ml Exam General: WN/WD/NAD, AOx 1-2 HEENT: Unicetric/atraumatic/EOMI (does not follow commands) NECK: JVD elevated, no thyromegaly Lymph: no lymphadenopathy HEART: ir irregular with no S3, II/ systolic murmur at apex LUNGS: Coarse sounds ABD: soft, NT, ND, +BS : Intact Neuro: non focal SKIN: chronic changes EXT: trace edema Results/Medications Result Diagram: 12/07/18 1709 12/07/18 1709 Results 24 hrs Laboratory Tests Test 12/07/18 12:49 12/07/18 17:09 12/07/18 17:42 12/07/18 21:35 Bedside Glucose 177 148 135 White Blood Count 7.7 Red Blood Count 2.86 L Hemoglobin 8.4 L Hematocrit 27.2 L Mean Corpuscular 95.1 Volume Mean Corpuscular 29.4 Hemoglobin Mean Corpuscular 30.9 L Hemoglobin Concent Red Cell 16.2 H Distribution Width Platelet Count 103 L Mean Platelet Volume 12.0 H Immature 1.000 H Granulocytes % Neutrophils % 78.5 H Lymphocytes % 9.3 L Monocytes % 10.0 Eosinophils % 0.9 Basophils % 0.3 Nucleated Red Blood 0.0 Cells % Immature 0.080 H Granulocytes # Neutrophils # 6.1 Lymphocytes # 0.7 L Monocytes # 0.8 Eosinophils # 0.1 Basophils # 0.0 Nucleated Red Blood 0.0 Cells # Sodium Level 138 Potassium Level 3.7 Chloride Level 103 Carbon Dioxide Level 24 Anion Gap 11 Blood Urea Nitrogen 22 H Creatinine 5.59 H Est Glomerular Filtrat Rate mL/min Glucose Level 148 Calcium Level 8.3 L Test 12/08/18 06:05 12/08/18 09:02 Bedside Glucose 146 145 Home Meds Reported Medications Alprazolam* (Alprazolam*) 0.25 Mg Tablet, 0.25 MG PO NEEDED PRN for ANXIETY, TAB 11/26/18 Magnesium Oxide* (Mag-Oxide*) 400 Mg Tablet, 400 MG PO BID, TAB 11/26/18 Losartan Potassium* (Losartan Potassium*) 50 Mg Tablet, 50 MG PO BID PRN for NEEDED, TAB 11/26/18 Atorvastatin Calcium* (Atorvastatin Calcium*) 20 Mg Tablet, 20 MG PO QHS, #30 TAB 11/26/18 Potassium Chloride* (Potassium Chloride*) 8 Meq Capsule.er, 8 MEQ PO DAILY, CAP 11/26/18 Dronedarone Hydrochloride* (Multaq*) 400 Mg Tablet, 400 MG PO BID, TAB 11/26/18 Insulin Aspart (Novolog) 100 Unit/1 Ml Cartridge, 8 UNIT SQ AC BREAKFAST DINNER 11/26/18 Clopidogrel Bisulfate* (Clopidogrel Bisulfate*) 75 Mg Tablet, 75 MG PO DAILY, #30 TAB 11/26/18 Carvedilol* (Carvedilol*) 3.125 Mg Tablet, 3.125 MG PO BID, #60 TAB 11/26/18 Gabapentin* (Gabapentin*) 300 Mg Capsule, 300 MG PO DAILY, #60 CAP NEEDED 11/26/18 Aspirin* (Aspirin* EC) 81 Mg Tablet.dr, 81 MG PO DAILY, TAB 11/26/18 Amlodipine Besylate* (Amlodipine Besylate*) 10 Mg Tablet, 10 MG PO DAILY, #30 TAB TAKE NEEDED 11/26/18 Famotidine* (Famotidine*) 20 Mg Tablet, 20 MG PO BID, #30 TAB 11/26/18 Furosemide* (Furosemide*) 40 Mg Tablet, 40 MG PO BID, TAB 11/26/18 Levothyroxine Sodium* (Levothyroxine Sodium*) 125 Mcg Tablet, 125 MCG PO BEFORE BREAKFAST, #30 TAB 11/26/18 Bisacodyl (Ducodyl) 5 Mg Tablet.dr, 5 MG PO NEEDED 11/26/18 Ergocalciferol (Vitamin D2) (VITAMIN D2) 50,000 Unit Capsule, 75124 UNIT PO Q SAT, CAP 11/26/18 Lisinopril* (Lisinopril*) 5 Mg Tablet, 5 MG PO DAILY, #30 TAB TAKE NEEDED 11/26/18 Clonidine Hcl* (Clonidine Hcl*) 0.2 Mg Tablet, 0.2 MG PO BID PRN for HTN, TAB 11/26/18 Clonidine Patch (CLONIDINE PATCH) 0.2 Mg/24 Hr Patch, 1 PATCH.WK TD Q7D, #4 PATCH.WK 11/26/18 Hydralazine Hcl* (Apresoline*) 50 Mg Tab, 50 MG PO BID PRN for HTN, #60 TAB TAKE NEEDED 11/26/18 Insulin Glargine,Hum.rec.anlog (Basaglar Kwikpen U-100) 100 Unit/1 Ml Insuln.pen, 40 UNIT SC QHS, EA 11/26/18 Docusate Sodium* (Colace*) 250 Mg Capsule, 250 MG PO BID, #60 CAP 11/26/18 Ferrous Sulfate* (Ferrous Sulfate*) 325 Mg Tabec, 325 MG PO BID, TAB 11/26/18 Medications Current Medications Hydralazine HCl (Apresoline) 10 mg Q6H PRN IV SBP >160 Last administered on 12/04/18at 13:26; Admin Dose 10 MG; Start 11/25/18 at 14:00 Ondansetron HCl (Zofran Inj) 4 mg Q4H PRN IV NAUSEA AND/OR VOMITING Last administered on 11/29/18at 01:10; Admin Dose 4 MG; Start 11/25/18 at 14:00 Insulin Glargine (Lantus) 10 units DAILY@0800 SC Last administered on 12/08/18at 09:06; Admin Dose 10 UNITS; Start 11/26/18 at 08:00 Insulin Aspart (Novolog Insulin Pen) NOVOLOG *MILD* ALGORI... Q4 SC Last administered on 12/08/18 09:06; Admin Dose 1 UNIT; Start 11/25/18 at 17:00 Albuterol/ Ipratropium (Duoneb) 3 ml Q6H RESP THERAPY PRN HHN SHORTNESS OF BREATH Last administered on 11/26/18 20:17; Admin Dose 3 ML; Start 11/25/18 at 14:00 Acetaminophen (Tylenol Supp) 650 mg Q4H PRN [place] MILD PAIN(1-3) OR TEMP>38C Last administered on 12/02/18 09:25; Admin Dose 650 MG; Start 11/25/18 at 14:00 Miscellaneous Information 1 ea NOTE XX ; Start 11/25/18 at 14:30 Glucose (Glutose) 15 gm Q15M PRN PO DECREASED GLUCOSE; Start 11/25/18 at 14:30 Glucose (Glutose) 22.5 gm Q15M PRN PO DECREASED GLUCOSE; Start 11/25/18 at 14:30 Dextrose (D50w Syringe) 25 ml Q15M PRN IV DECREASED GLUCOSE; Start 11/25/18 at 14:30 Dextrose (D50w Syringe) 50 ml Q15M PRN IV DECREASED GLUCOSE; Start 11/25/18 at 14:30 Glucagon (Glucagen) 1 mg Q15M PRN IM DECREASED GLUCOSE; Start 11/25/18 at 14:30 Glucose (Glutose) 15 gm Q15M PRN BUCCAL DECREASED GLUCOSE; Start 11/25/18 at 14:30 Budesonide (Pulmicort (Neb)) 0.5 mg BID RESP THERAPY HHN Last administered on 12/07/18at 20:12; Admin Dose 0.5 MG; Start 11/26/18 at 09:00 IV Flush (NS 10 ml) 10 ml PRN PRN IV IV PROTOCOL; Start 11/26/18 at 14:00 Metoprolol Tartrate (Lopressor) 5 mg Q4H PRN IV HR>110 Hold SBP<100 Last administered on 12/04/18at 09:35; Admin Dose 5 MG; Start 11/26/18 at 18:00 Levothyroxine Sodium (Synthroid) 125 mcg DAILY@06 PO Last administered on 12/08/18at 06:10; Admin Dose 125 MCG; Start 11/28/18 at 06:00 Albumin Human 100 ml @ 100 mls/hr DURING DIALYSIS PRN IV HYPOTENTION DURING HD Last administered on 12/03/18 10:51; Admin Dose 100 MLS/HR; Start 11/27/18 at 20:30 Acetaminophen (Tylenol Liquid) 650 mg Q4H PRN PO MILD PAIN(1-3)OR ELEVATED TEMP Last administered on 11/28/18 18:59; Admin Dose 650 MG; Start 11/28/18 at 16:00 Haloperidol (Haldol) 2 mg Q4 PRN IV AGITATION Last administered on 12/02/18 13:01; Admin Dose 2 MG; Start 11/29/18 at 12:00 Quetiapine Fumarate (Seroquel) 25 mg QHS PO Last administered on 12/07/18 21:49; Admin Dose 25 MG; Start 11/29/18 at 21:00 Pantoprazole (Protonix Tab) 40 mg DAILY@06 PO Last administered on 12/08/18 06:10; Admin Dose 40 MG; Start 11/30/18 at 06:00 Dextrose/Sodium Chloride 1,000 ml @ 40 mls/hr Q24H IV Last administered on 12/07/18 18:27; Admin Dose 40 MLS/HR; Start 11/30/18 at 12:30 Enalaprilat (Vasotec Iv) 1.25 mg Q2H PRN IV ELEVATED SYSTOLIC BP Last adm inistered on 12/03/18 02:30; Admin Dose 1.25 MG; Start 12/03/18 at 00:30 Epoetin Kavon-epbx (RETACRIT(esrd)) 10,000 unit MoWeFr@1700 SC Last administered on 12/07/18 17:56; Admin Dose 10,000 UNIT; Start 12/03/18 at 17:00 Clonidine HCl (Catapres-Tts 2 Patch) 1 patch Q7D TRANSDERM Last administered on 12/03/18 14:25; Admin Dose 1 PATCH; Start 12/03/18 at 13:00 Docusate Sodium (Colace) 100 mg BID PRN PO CONSTIPATION; Start 12/05/18 at 19:00 Lorazepam (Ativan) 0.5 mg Q8H PRN IV AGITATION Last administered on 12/07/18 23:23; Admin Dose 0.5 MG; Start 12/07/18 at 12:30 Metoprolol Tartrate (Lopressor) 50 mg BID PO Last administered on 12/07/18at 21:50; Admin Dose 50 MG; Start 12/07/18 at 21:00 Assessment/Plan Hospital Course (Demo Recall) 1. Hypotension, borderline, not on pressure support at this time - stable now - con't to follow - HD now, tolerated HD well - labile - luis Rx with renal team - labile - Rx with renal team. Better now. 2. Atrial fibrillation, primarily rate controlled off of antihypertensives at this time - not anti-coag now r/o GIB and decreased H/H - stable now - rate controlled - stable now. . ASA/plavix for now. 3. Anemia, worsening with guaiac positive stool consistent with gastrointestinal bleed - GI follows. 4. Diabetes mellitus. 5. Acute on chronic renal failure, being initiated on hemodialysis - HD now. 6. Altered mental state- unchanged 7. Diastolic congestive heart failure due to a preserved EF by most recent echo and findings by chest x-ray - remove fluid with HD. Better fluid staus. 8. History of coronary artery disease, nonobstructive by outside hospital catheterization - no intervention planned now. 9. Shortness of breath with hypothyroidism. 10. Diabetes mellitus - on meds, keep euglycemic ALFRED PEPE MD Dec 08, 2018 10:09
--- NOTE | 2018-12-08 14:08 | PN ---
Date/Time of Note Date/Time of Note DATE: 12/08/18 TIME: 14:07 Assessment/Plan VTE Prophylaxis Risk score (from [facility] [place])>0 risk: 9 SCD applied (from [facility] [place]): No SCD contraindicated: other Pharmacological prophylaxis: other Pharm contraindication: other Lines/Catheters IV [facility]ter Type (from [facility] Central Line Central line still needed: Yes Urinary Cath still in place: Yes Reason Cath still needed: urinary retention Assessment/Plan Assessment/Plan 1. Oliguric acute kidney injury on top of chronic kidney disease stage IV with previous baseline creatinine around 2.0 mg/dL. Etiology of acute kidney injury was secondary to acute tubular necrosis due to hemodynamic sepsis. \ - HD per Nephrology -on case 2. Anemia, etiology is multifactorial secondary to chronic kidney disease, iron deficiency, questionable GI bleed. Patient is currently on IV iron on Epogen. - Continue to monitor CBC - Continue PPI. - per GI 3. Mineral bone disorder. Monitor calcium and phosphorus levels. 4. Encephalopathy. Etiology is toxic metabolic, possibly uremic. Continue to monitor. 5. Coronary artery disease. Continue medical management. 6. Diabetes. - Continue current insulin regimen. 7. Hypothyroidism. Continue Synthroid. 8. History of asthma. Continue current treatment plan. 9. History of atrial fibrillation. 10. Thrombocytopenia. Continue to monitor. 11. Hypertension. Blood pressure controlled. Plan of care discussed with Dr. Lind. Result Diagram: 12/07/18 1709 12/07/18 1709 Results 24hrs Laboratory Tests Test 12/07/18 17:09 12/07/18 17:42 12/07/18 21:35 12/08/18 06:05 White Blood Count 7.7 Red Blood Count 2.86 L Hemoglobin 8.4 L Hematocrit 27.2 L Mean Corpuscular 95.1 Volume Mean Corpuscular 29.4 Hemoglobin Mean Corpuscular 30.9 L Hemoglobin Concent Red Cell 16.2 H Distribution Width Platelet Count 103 L Mean Platelet Volume 12.0 H Immature 1.000 H Granulocytes % Neutrophils % 78.5 H Lymphocytes % 9.3 L Monocytes % 10.0 Eosinophils % 0.9 Basophils % 0.3 Nucleated Red Blood 0.0 Cells % Immature 0.080 H Granulocytes # Neutrophils # 6.1 Lymphocytes # 0.7 L Monocytes # 0.8 Eosinophils # 0.1 Basophils # 0.0 Nucleated Red Blood 0.0 Cells # Sodium Level 138 Potassium Level 3.7 Chloride Level 103 Carbon Dioxide Level 24 Anion Gap 11 Blood Urea Nitrogen 22 H Creatinine 5.59 H Est Glomerular Filtrat Rate mL/min Glucose Level 148 Calcium Level 8.3 L Bedside Glucose 148 135 146 Test 12/08/18 09:02 12/08/18 11:36 Bedside Glucose 145 116 Subjective 24 Hr Interval Summary Free Text/Dictation - nad - confused but stable - sp speech evaluation - no s/s of aspiration reported - no new events reported last night dw staff Constitutional: requiring O2 Respiratory: no complaints Cardiovascular: no complaints Gastrointestinal: no complaints Exam/Review of Systems Exam Vitals Vital Signs Date Temp Pulse Resp B/P (MAP) Pulse Ox O2 O2 Flow FiO2 Time Delivery Rate 12/08/18 98.2 124 20 144/66 95 Nasal 12:00 (92) Cannula 12/08/18 2.0 09:05 12/07/18 09:51 Intake and Output 12/07/18 12/07/18 12/08/18 1515:00 23:00 07:00 IntakeIntake Total 360 ml 480 ml OutputOutput Total 200 ml 50 ml BalanceBalance 160 ml 430 ml Constitutional: alert, well developed Psych: nl mood/affect Head: normocephalic Eyes: nl lids, nl sclera ENMT: nl external ears & nose Neck: non-tender Respiratory: clear to auscultation Cardiovascular: nl pulses, other (s1s2) Gastrointestinal: soft, non-tender Musculoskeletal: nl extremities to inspection Extremities: normal pulses Neurological: nl speech, confused Lymph: nontender Results Results 24hrs Laboratory Tests Test 12/07/18 17:09 12/07/18 17:42 12/07/18 21:35 12/08/18 06:05 White Blood Count 7.7 Red Blood Count 2.86 L Hemoglobin 8.4 L Hematocrit 27.2 L Mean Corpuscular 95.1 Volume Mean Corpuscular 29.4 Hemoglobin Mean Corpuscular 30.9 L Hemoglobin Concent Red Cell 16.2 H Distribution Width Platelet Count 103 L Mean Platelet Volume 12.0 H Immature 1.000 H Granulocytes % Neutrophils % 78.5 H Lymphocytes % 9.3 L Monocytes % 10.0 Eosinophils % 0.9 Basophils % 0.3 Nucleated Red Blood 0.0 Cells % Immature 0.080 H Granulocytes # Neutrophils # 6.1 Lymphocytes # 0.7 L Monocytes # 0.8 Eosinophils # 0.1 Basophils # 0.0 Nucleated Red Blood 0.0 Cells # Sodium Level 138 Potassium Level 3.7 Chloride Level 103 Carbon Dioxide Level 24 Anion Gap 11 Blood Urea Nitrogen 22 H Creatinine 5.59 H Est Glomerular Filtrat Rate mL/min Glucose Level 148 Calcium Level 8.3 L Bedside Glucose 148 135 146 Test 12/08/18 09:02 12/08/18 11:36 Bedside Glucose 145 116 Medications Medication Current Medications Hydralazine HCl (Apresoline) 10 mg Q6H PRN IV SBP >160 Last administered on 12/04/18 13:26; Admin Dose 10 MG; Start 11/25/18 at 14:00 Ondansetron HCl (Zofran Inj) 4 mg Q4H PRN IV NAUSEA AND/OR VOMITING Last administered on 11/29/18 01:10; Admin Dose 4 MG; Start 11/25/18 at 14:00 Insulin Glargine (Lantus) 10 units DAILY@0800 SC Last administered on 12/08/18 09:06; Admin Dose 10 UNITS; Start 11/26/18 at 08:00 Insulin Aspart (Novolog Insulin Pen) NOVOLOG *MILD* ALGORI... Q4 SC Last administered on 12/08/18 09:06; Admin Dose 1 UNIT; Start 11/25/18 at 17:00 Albuterol/ Ipratropium (Duoneb) 3 ml Q6H RESP THERAPY PRN HHN SHORTNESS OF BREATH Last administered on 11/26/18at 20:17; Admin Dose 3 ML; Start 11/25/18 at 14:00 Acetaminophen (Tylenol Supp) 650 mg Q4H PRN [place] MILD PAIN(1-3) OR TEMP>38C Last administered on 12/02/18 09:25; Admin Dose 650 MG; Start 11/25/18 at 14:00 Miscellaneous Information 1 ea NOTE XX ; Start 11/25/18 at 14:30 Glucose (Glutose) 15 gm Q15M PRN PO DECREASED GLUCOSE; Start 11/25/18 at 14:30 Glucose (Glutose) 22.5 gm Q15M PRN PO DECREASED GLUCOSE; Start 11/25/18 at 14:30 Dextrose (D50w Syringe) 25 ml Q15M PRN IV DECREASED GLUCOSE; Start 11/25/18 at 14:30 Dextrose (D50w Syringe) 50 ml Q15M PRN IV DECREASED GLUCOSE; Start 11/25/18 at 14:30 Glucagon (Glucagen) 1 mg Q15M PRN IM DECREASED GLUCOSE; Start 11/25/18 at 14:30 Glucose (Glutose) 15 gm Q15M PRN BUCCAL DECREASED GLUCOSE; Start 11/25/18 at 14:30 Budesonide (Pulmicort (Neb)) 0.5 mg BID RESP THERAPY HHN Last administered on 12/07/18 20:12; Admin Dose 0.5 MG; Start 11/26/18 at 09:00 IV Flush (NS 10 ml) 10 ml PRN PRN IV IV PROTOCOL; Start 11/26/18 at 14:00 Metoprolol Tartrate (Lopressor) 5 mg Q4H PRN IV HR>110 Hold SBP<100 Last administered on 12/04/18 09:35; Admin Dose 5 MG; Start 11/26/18 at 18:00 Levothyroxine Sodium (Synthroid) 125 mcg DAILY@06 PO Last administered on 12/08/18 06:10; Admin Dose 125 MCG; Start 11/28/18 at 06:00 Albumin Human 100 ml @ 100 mls/hr DURING DIALYSIS PRN IV HYPOTENTION DURING HD Last administered on 12/03/18 10:51; Admin Dose 100 MLS/HR; Start 11/27/18 at 20:30 Acetaminophen (Tylenol Liquid) 650 mg Q4H PRN PO MILD PAIN(1-3)OR ELEVATED TEMP Last administered on 11/28/18 18:59; Admin Dose 650 MG; Start 11/28/18 at 16:00 Haloperidol (Haldol) 2 mg Q4 PRN IV AGITATION Last administered on 12/02/18 13:01; Admin Dose 2 MG; Start 11/29/18 at 12:00 Quetiapine Fumarate (Seroquel) 25 mg QHS PO Last administered on 12/07/18 21:49; Admin Dose 25 MG; Start 11/29/18 at 21:00 Pantoprazole (Protonix Tab) 40 mg DAILY@06 PO Last administered on 12/08/18 06:10; Admin Dose 40 MG; Start 11/30/18 at 06:00 Dextrose/Sodium Chloride 1,000 ml @ 40 mls/hr Q24H IV Last administered on 12/07/18 18:27; Admin Dose 40 MLS/HR; Start 11/30/18 at 12:30 Enalaprilat (Vasotec Iv) 1.25 mg Q2H PRN IV ELEVATED SYSTOLIC BP Last administered on 12/03/18 02:30; Admin Dose 1.25 MG; Start 12/03/18 at 00:30 Epoetin Kavon-epbx (RETACRIT(esrd)) 10,000 unit MoWeFr@1700 SC Last administered on 12/07/18at 17:56; Admin Dose 10,000 UNIT; Start 12/03/18 at 17:00 Clonidine HCl (Catapres-Tts 2 Patch) 1 patch Q7D TRANSDERM Last administered on 12/03/18at 14:25; Admin Dose 1 PATCH; Start 12/03/18 at 13:00 Docusate Sodium (Colace) 100 mg BID PRN PO CONSTIPATION; Start 12/05/18 at 19:00 Lorazepam (Ativan) 0.5 mg Q8H PRN IV AGITATION Last administered on 12/07/18at 23:23; Admin Dose 0.5 MG; Start 12/07/18 at 12:30 Metoprolol Tartrate (Lopressor) 50 mg BID PO Last administered on 12/07/18at 21:50; Admin Dose 50 MG; Start 12/07/18 at 21:00 JODI HANSON Dec 08, 2018 14:08
--- NOTE | 2018-12-08 15:20 | CONS ---
Assessment/Plan Assessment/Plan Hospital Course (Demo Recall) 78-year-old female with a history of hypertension, CHF, chronic kidney disease, diabetes mellitus, pulmonary embolism, status post surgery, atrial fibrillation admitted originally to [facility] for respiratory failure, transferred to [facility]. At [facility] pt was found to be hypotensive and transferred to [facility]. We were consulted for anemia and positive guaiac stool Interval hx: No signs of GI bleeding. Capsule endoscopy and EGD reports from [facility] are unremarkable. 1. Anemia due to the chronic gastrointestinal blood loss and also chronic disease. 2. Diabetes mellitus. 3. Thrombocytopenia. 4. Bronchial asthma. 5. Atrial fibrillation. 6. Acute on chronic renal failure 7. Mildly elevated CEA at 6.6 Plan Spoke with daughter Janee over phone who states family does not want a colonoscopy Monitor HH and for active GI bleeding Pt needs colonoscopy since CEA elevated and positive FOB and family hx of colon cancer Pt examined and plan of care discussed with Dr. Schaffer Consultation Date/Type/Reason Admit Date/Time Nov 25, 2018 at 13:18 Initial Consult Date 11/26/18 Requesting Provider: GENNY SULLIVAN Date/Time of Note DATE: 12/08/18 TIME: 15:14 Exam/Review of Systems Exam Vitals Vital Signs Date Temp Pulse Resp B/P (MAP) Pulse Ox O2 O2 Flow FiO2 Time Delivery Rate 12/08/18 138 12:00 12/08/18 98.2 20 144/66 95 Nasal 12:00 (92) Cannula 12/08/18 2.0 09:05 12/07/18 21 09:51 Intake and Output 12/07/18 12/07/18 12/08/18 1414:59 22:59 06:59 IntakeIntake Total 360 ml 480 ml OutputOutput Total 200 ml 50 ml BalanceBalance 160 ml 430 ml Constitutional: alert Psych: no complaints Head: normocephalic Eyes: nl sclera, PERRL ENMT: mucosa pink and moist Respiratory: normal air movement Gastrointestinal: soft, non-tender Results Result Diagram: 12/07/18 1709 12/07/18 1709 Results 24hrs Laboratory Tests Test 12/07/18 17:09 12/07/18 17:42 12/07/18 21:35 12/08/18 06:05 White Blood Count 7.7 Red Blood Count 2.86 L Hemoglobin 8.4 L Hematocrit 27.2 L Mean Corpuscular 95.1 Volume Mean Corpuscular 29.4 Hemoglobin Mean Corpuscular 30.9 L Hemoglobin Concent Red Cell 16.2 H Distribution Width Platelet Count 103 L Mean Platelet Volume 12.0 H Immature 1.000 H Granulocytes % Neutrophils % 78.5 H Lymphocytes % 9.3 L Monocytes % 10.0 Eosinophils % 0.9 Basophils % 0.3 Nucleated Red Blood 0.0 Cells % Immature 0.080 H Granulocytes # Neutrophils # 6.1 Lymphocytes # 0.7 L Monocytes # 0.8 Eosinophils # 0.1 Basophils # 0.0 Nucleated Red Blood 0.0 Cells # Sodium Level 138 Potassium Level 3.7 Chloride Level 103 Carbon Dioxide Level 24 Anion Gap 11 Blood Urea Nitrogen 22 H Creatinine 5.59 H Est Glomerular Filtrat Rate mL/min Glucose Level 148 Calcium Level 8.3 L Bedside Glucose 148 135 146 Test 12/08/18 09:02 12/08/18 11:36 Bedside Glucose 145 116 Medications Medication Current Medications Hydralazine HCl (Apresoline) 10 mg Q6H PRN IV SBP >160 Last administered on 12/04/18 13:26; Admin Dose 10 MG; Start 11/25/18 at 14:00 Ondansetron HCl (Zofran Inj) 4 mg Q4H PRN IV NAUSEA AND/OR VOMITING Last administered on 11/29/18at 01:10; Admin Dose 4 MG; Start 11/25/18 at 14:00 Insulin Glargine (Lantus) 10 units DAILY@0800 SC Last administered on 12/08/18 09:06; Admin Dose 10 UNITS; Start 11/26/18 at 08:00 Insulin Aspart (Novolog Insulin Pen) NOVOLOG *MILD* ALGORI... Q4 SC Last administered on 12/08/18 09:06; Admin Dose 1 UNIT; Start 11/25/18 at 17:00 Albuterol/ Ipratropium (Duoneb) 3 ml Q6H RESP THERAPY PRN HHN SHORTNESS OF BREATH Last administered on 11/26/18 20:17; Admin Dose 3 ML; Start 11/25/18 at 14:00 Acetaminophen (Tylenol Supp) 650 mg Q4H PRN [place] MILD PAIN(1-3) OR TEMP>38C Last administered on 12/02/18at 09:25; Admin Dose 650 MG; Start 11/25/18 at 14:00 Miscellaneous Information 1 ea NOTE XX ; Start 11/25/18 at 14:30 Glucose (Glutose) 15 gm Q15M PRN PO DECREASED GLUCOSE; Start 11/25/18 at 14:30 Glucose (Glutose) 22.5 gm Q15M PRN PO DECREASED GLUCOSE; Start 11/25/18 at 14:30 Dextrose (D50w Syringe) 25 ml Q15M PRN IV DECREASED GLUCOSE; Start 11/25/18 at 14:30 Dextrose (D50w Syringe) 50 ml Q15M PRN IV DECREASED GLUCOSE; Start 11/25/18 at 14:30 Glucagon (Glucagen) 1 mg Q15M PRN IM DECREASED GLUCOSE; Start 11/25/18 at 14:30 Glucose (Glutose) 15 gm Q15M PRN BUCCAL DECREASED GLUCOSE; Start 11/25/18 at 14:30 Budesonide (Pulmicort (Neb)) 0.5 mg BID RESP THERAPY HHN Last administered on 12/07/18at 20:12; Admin Dose 0.5 MG; Start 11/26/18 at 09:00 IV Flush (NS 10 ml) 10 ml PRN PRN IV IV PROTOCOL; Start 11/26/18 at 14:00 Metoprolol Tartrate (Lopressor) 5 mg Q4H PRN IV HR>110 Hold SBP<100 Last administered on 12/04/18at 09:35; Admin Dose 5 MG; Start 11/26/18 at 18:00 Levothyroxine Sodium (Synthroid) 125 mcg DAILY@06 PO Last administered on 12/08/18at 06:10; Admin Dose 125 MCG; Start 11/28/18 at 06:00 Albumin Human 100 ml @ 100 mls/hr DURING DIALYSIS PRN IV HYPOTENTION DURING HD Last administered on 12/03/18at 10:51; Admin Dose 100 MLS/HR; Start 11/27/18 at 20:30 Acetaminophen (Tylenol Liquid) 650 mg Q4H PRN PO MILD PAIN(1-3)OR ELEVATED TEMP Last administered on 11/28/18at 18:59; Admin Dose 650 MG; Start 11/28/18 at 16:00 Haloperidol (Haldol) 2 mg Q4 PRN IV AGITATION Last administered on 12/02/18 13:01; Admin Dose 2 MG; Start 11/29/18 at 12:00 Quetiapine Fumarate (Seroquel) 25 mg QHS PO Last administered on 12/07/18 21:49; Admin Dose 25 MG; Start 11/29/18 at 21:00 Pantoprazole (Protonix Tab) 40 mg DAILY@06 PO Last administered on 12/08/18 06:10; Admin Dose 40 MG; Start 11/30/18 at 06:00 Dextrose/Sodium Chloride 1,000 ml @ 40 mls/hr Q24H IV Last administered on 12/07/18 18:27; Admin Dose 40 MLS/HR; Start 11/30/18 at 12:30 Enalaprilat (Vasotec Iv) 1.25 mg Q2H PRN IV ELEVATED SYSTOLIC BP Last administered on 12/03/18 02:30; Admin Dose 1.25 MG; Start 12/03/18 at 00:30 Epoetin Kavon-epbx (RETACRIT(esrd)) 10,000 unit MoWeFr@1700 SC Last administered on 12/07/18 17:56; Admin Dose 10,000 UNIT; Start 12/03/18 at 17:00 Clonidine HCl (Catapres-Tts 2 Patch) 1 patch Q7D TRANSDERM Last administered on 12/03/18 14:25; Admin Dose 1 PATCH; Start 12/03/18 at 13:00 Docusate Sodium (Colace) 100 mg BID PRN PO CONSTIPATION; Start 12/05/18 at 19:00 Lorazepam (Ativan) 0.5 mg Q8H PRN IV AGITATION Last administered on 12/07/18 23:23; Admin Dose 0.5 MG; Start 12/07/18 at 12:30 Metoprolol Tartrate (Lopressor) 50 mg BID PO Last administered on 12/07/18 21:50; Admin Dose 50 MG; Start 12/07/18 at 21:00 SOLOMON BYRD Dec 08, 2018 15:20
[2018-12-08] MEDS: QUETIAPINE 25 MG TAB PO SCH (20:42)
--- NOTE | 2018-12-08 22:28 | CONS ---
Consult Date/Type/Reason Admit Date/Time Nov 25, 2018 at 13:18 Initial Consult Date 11/26/18 Type of Consultation: Pulm Requesting Provider: GENNY SULLIVAN Date/Time of Note DATE: 12/08/18 TIME: 22:26 Subjective No overnight events noted. Objective Vitals Vital Signs Date Temp Pulse Resp B/P (MAP) Pulse Ox O2 O2 Flow FiO2 Time Delivery Rate 12/08/18 58 24 96 Nasal 2.0 20:57 Cannula 12/08/18 99.0 138/75 20:49 (96) 12/07/18 21 09:51 Intake and Output 12/07/18 12/07/18 12/08/18 1515:00 23:00 07:00 IntakeIntake Total 360 ml 480 ml OutputOutput Total 200 ml 50 ml BalanceBalance 160 ml 430 ml Exam HEENT: Neck supple; no JVD; no LAD CVS: Irreg irreg, S1 and S2 CHEST: Coarse BS b/l ABD: Soft, NT, + BS EXT: No c/c; tr edema Results/Medications Result Diagram: 12/07/18 1709 12/07/18 1709 Results 24 hrs Laboratory Tests Test 12/08/18 06:05 12/08/18 09:02 12/08/18 11:36 12/08/18 17:29 Bedside Glucose 146 145 116 171 Test 12/08/18 20:43 Bedside Glucose 192 Home Meds Reported Medications Alprazolam* (Alprazolam*) 0.25 Mg Tablet, 0.25 MG PO NEEDED PRN for ANXIETY, TAB 11/26/18 Magnesium Oxide* (Mag-Oxide*) 400 Mg Tablet, 400 MG PO BID, TAB 11/26/18 Losartan Potassium* (Losartan Potassium*) 50 Mg Tablet, 50 MG PO BID PRN for NEEDED, TAB 11/26/18 Atorvastatin Calcium* (Atorvastatin Calcium*) 20 Mg Tablet, 20 MG PO QHS, #30 TAB 11/26/18 Potassium Chloride* (Potassium Chloride*) 8 Meq Capsule.er, 8 MEQ PO DAILY, CAP 11/26/18 Dronedarone Hydrochloride* (Multaq*) 400 Mg Tablet, 400 MG PO BID, TAB 11/26/18 Insulin Aspart (Novolog) 100 Unit/1 Ml Cartridge, 8 UNIT SQ AC BREAKFAST DINNER 11/26/18 Clopidogrel Bisulfate* (Clopidogrel Bisulfate*) 75 Mg Tablet, 75 MG PO DAILY, #30 TAB 11/26/18 Carvedilol* (Carvedilol*) 3.125 Mg Tablet, 3.125 MG PO BID, #60 TAB 11/26/18 Gabapentin* (Gabapentin*) 300 Mg Capsule, 300 MG PO DAILY, #60 CAP NEEDED 11/26/18 Aspirin* (Aspirin* EC) 81 Mg Tablet.dr, 81 MG PO DAILY, TAB 11/26/18 Amlodipine Besylate* (Amlodipine Besylate*) 10 Mg Tablet, 10 MG PO DAILY, #30 TAB TAKE NEEDED 11/26/18 Famotidine* (Famotidine*) 20 Mg Tablet, 20 MG PO BID, #30 TAB 11/26/18 Furosemide* (Furosemide*) 40 Mg Tablet, 40 MG PO BID, TAB 11/26/18 Levothyroxine Sodium* (Levothyroxine Sodium*) 125 Mcg Tablet, 125 MCG PO BEFORE BREAKFAST, #30 TAB 11/26/18 Bisacodyl (Ducodyl) 5 Mg Tablet.dr, 5 MG PO NEEDED 11/26/18 Ergocalciferol (Vitamin D2) (VITAMIN D2) 50,000 Unit Capsule, 59932 UNIT PO Q SAT, CAP 11/26/18 Lisinopril* (Lisinopril*) 5 Mg Tablet, 5 MG PO DAILY, #30 TAB TAKE NEEDED 11/26/18 Clonidine Hcl* (Clonidine Hcl*) 0.2 Mg Tablet, 0.2 MG PO BID PRN for HTN, TAB 11/26/18 Clonidine Patch (CLONIDINE PATCH) 0.2 Mg/24 Hr Patch, 1 PATCH.WK TD Q7D, #4 PATCH.WK 11/26/18 Hydralazine Hcl* (Apresoline*) 50 Mg Tab, 50 MG PO BID PRN for HTN, #60 TAB TAKE NEEDED 11/26/18 Insulin Glargine,Hum.rec.anlog (Basaglar Kwikpen U-100) 100 Unit/1 Ml Insuln.pen, 40 UNIT SC QHS, EA 11/26/18 Docusate Sodium* (Colace*) 250 Mg Capsule, 250 MG PO BID, #60 CAP 11/26/18 Ferrous Sulfate* (Ferrous Sulfate*) 325 Mg Tabec, 325 MG PO BID, TAB 11/26/18 Medications Current Medications Hydralazine HCl (Apresoline) 10 mg Q6H PRN IV SBP >160 Last administered on 12/04/18at 13:26; Admin Dose 10 MG; Start 11/25/18 at 14:00 Ondansetron HCl (Zofran Inj) 4 mg Q4H PRN IV NAUSEA AND/OR VOMITING Last administered on 11/29/18at 01:10; Admin Dose 4 MG; Start 11/25/18 at 14:00 Insulin Glargine (Lantus) 10 units DAILY@0800 SC Last administered on 12/08/18 09:06; Admin Dose 10 UNITS; Start 11/26/18 at 08:00 Insulin Aspart (Novolog Insulin Pen) NOVOLOG *MILD* ALGORI... Q4 SC Last administered on 12/08/18at 20:51; Admin Dose 2 UNIT; Start 11/25/18 at 17:00 Albuterol/ Ipratropium (Duoneb) 3 ml Q6H RESP THERAPY PRN HHN SHORTNESS OF BREATH Last administered on 11/26/18at 20:17; Admin Dose 3 ML; Start 11/25/18 at 14:00 Acetaminophen (Tylenol Supp) 650 mg Q4H PRN [place] MILD PAIN(1-3) OR TEMP>38C Last administered on 12/02/18at 09:25; Admin Dose 650 MG; Start 11/25/18 at 14:00 Miscellaneous Information 1 ea NOTE XX ; Start 11/25/18 at 14:30 Glucose (Glutose) 15 gm Q15M PRN PO DECREASED GLUCOSE; Start 11/25/18 at 14:30 Glucose (Glutose) 22.5 gm Q15M PRN PO DECREASED GLUCOSE; Start 11/25/18 at 14:30 Dextrose (D50w Syringe) 25 ml Q15M PRN IV DECREASED GLUCOSE; Start 11/25/18 at 14:30 Dextrose (D50w Syringe) 50 ml Q15M PRN IV DECREASED GLUCOSE; Start 11/25/18 at 14:30 Glucagon (Glucagen) 1 mg Q15M PRN IM DECREASED GLUCOSE; Start 11/25/18 at 14:30 Glucose (Glutose) 15 gm Q15M PRN BUCCAL DECREASED GLUCOSE; Start 11/25/18 at 14:30 Budesonide (Pulmicort (Neb)) 0.5 mg BID RESP THERAPY HHN Last administered on 12/08/18 20:55; Admin Dose 0.5 MG; Start 11/26/18 at 09:00 IV Flush (NS 10 ml) 10 ml PRN PRN IV IV PROTOCOL; Start 11/26/18 at 14:00 Metoprolol Tartrate (Lopressor) 5 mg Q4H PRN IV HR>110 Hold SBP<100 Last administered on 12/04/18 09:35; Admin Dose 5 MG; Start 11/26/18 at 18:00 Levothyroxine Sodium (Synthroid) 125 mcg DAILY@06 PO Last administered on 06:10; Admin Dose 125 MCG; Start 11/28/18 at 06:00 Albumin Human 100 ml @ 100 mls/hr DURING DIALYSIS PRN IV HYPOTENTION DURING HD Last administered on 12/03/18 10:51; Admin Dose 100 MLS/HR; Start 11/27/18 at 20:30 Acetaminophen (Tylenol Liquid) 650 mg Q4H PRN PO MILD PAIN(1-3)OR ELEVATED TEMP Last administered on 11/28/18 18:59; Admin Dose 650 MG; Start 11/28/18 at 16:00 Haloperidol (Haldol) 2 mg Q4 PRN IV AGITATION Last administered on 12/02/18 13:01; Admin Dose 2 MG; Start 11/29/18 at 12:00 Quetiapine Fumarate (Seroquel) 25 mg QHS PO Last administered on 12/08/18 20:42; Admin Dose 25 MG; Start 11/29/18 at 21:00 Pantoprazole (Protonix Tab) 40 mg DAILY@06 PO Last administered on 12/08/18 06:10; Admin Dose 40 MG; Start 11/30/18 at 06:00 Dextrose/Sodium Chloride 1,000 ml @ 40 mls/hr Q24H IV Last administered on 12/07/18 18:27; Admin Dose 40 MLS/HR; Start 11/30/18 at 12:30 Enalaprilat (Vasotec Iv) 1.25 mg Q2H PRN IV ELEVATED SYSTOLIC BP Last administered on 12/03/18 02:30; Admin Dose 1.25 MG; Start 12/03/18 at 00:30 Epoetin Kavon-epbx (RETACRIT(esrd)) 10,000 unit MoWeFr@1700 SC Last administered on 12/07/18at 17:56; Admin Dose 10,000 UNIT; Start 12/03/18 at 17:00 Clonidine HCl (Catapres-Tts 2 Patch) 1 patch Q7D TRANSDERM Last administered on 12/03/18at 14:25; Admin Dose 1 PATCH; Start 12/03/18 at 13:00 Docusate Sodium (Colace) 100 mg BID PRN PO CONSTIPATION; Start 12/05/18 at 19:00 Lorazepam (Ativan) 0.5 mg Q8H PRN IV AGITATION Last administered on 12/07/18at 23:23; Admin Dose 0.5 MG; Start 12/07/18 at 12:30 Metoprolol Tartrate (Lopressor) 50 mg BID PO Last administered on 12/08/18at 20:42; Admin Dose 50 MG; Start 12/07/18 at 21:00 Assessment/Plan Assessment/Plan (Daily) IMP 1. CKD 2. CHF 3. Afib 4. h/o PE 5. DM No new pulm recs. WEN BURROWS MD Dec 08, 2018 22:28
[2018-12-08] MEDS: DEXTROSE 5%-0.45% NACL 1,000 ML IV SCH (22:47)
[2018-12-09] VITALS (12 sets, daily range): BP systolic 107–158; BP diastolic 45–87; PULSE 65–89; RESP 16–18
[2018-12-09] MEDS: INSULIN ASPART [NOVOLOG] 3 ML PEN SC SCH ×6 (00:39→20:41)
[2018-12-09] MEDS: LORAZEPAM 2 MG INJ IV PRN ×2 (01:16→21:53)
[2018-12-09] MEDS: PANTOPRAZOLE (EC) 40 MG TAB PO SCH (05:22)
[2018-12-09] MEDS: LEVOTHYROXINE 125 MCG TAB PO SCH (06:00)
[2018-12-09] MEDS: METOPROLOL 50 MG TAB PO SCH ×2 (08:45→20:32)
--- NOTE | 2018-12-09 08:49 | PN ---
DATE: 12/09/2018 SUBJECTIVE: The patient is stable, no events overnight. The patient had hemodialysis yesterday, aileen erated well. OBJECTIVE: VITAL SIGNS: Blood pressure is 158/87, pulse 77, respirations 17, temperature 98.1. HEENT: Head is normocephalic. NECK: Supple. HEART: Regular rate. LUNGS: Show diminished breath sounds at the base. ABDOMEN: Soft, nontender to palpation without rebound or guarding. EXTREMITIES: Negative for clubbing, cyanosis, no edema. DERMATOLOGIC: No rashes. MUSCULOSKELETAL: No joint effusion. NEUROLOGIC: No change in exam. MEDICATIONS: Reviewed. LABORATORY DATA: Reviewed. ASSESSMENT AND PLAN: 1. Oligoanuric acute kidney injury on top of chronic kidney disease stage IV, now likely end-stage r enal disease. The patient is status post Perm-A-Cath placement. No signs of recovery, continue inte rmittent hemodialysis. 2. Anemia. Continue to monitor hemoglobin and hematocrit levels. Continue Epogen. 3. Mineral bone disorder, monitor calcium and phosphorus levels. 4. Encephalopathy, etiology is toxic metabolic. 5. Coronary artery disease. Continue medical management. 6. Diabetes. Continue current insulin regimen. 7. Hypothyroidism. Continue Synthroid. 8. History of atrial fibrillation. 9. Thrombocytopenia. Continue to monitor. 10. Hypertension, improved. Continue current blood pressure regimen. Continue ultrafiltration with dialysis. 11. Tachyarrhythmia. Continue current treatment plan. Dictated By: SUSY CISNEROS DO NR/NTS Conf#: [id number] DID#: [id number] CC: EVA LOPEZ MD; NEREIDA MCQUEEN MD;*EndCC*
[2018-12-09] MEDS: INSULIN GLARGINE [LANTus] (100 UNITS/ML) SYG SC SCH (08:55)
[2018-12-09] MEDS: BUDESONIDE (NEB) 0.5MG/2ML AMP HHN SCH ×2 (09:43→20:25)
--- NOTE | 2018-12-09 10:16 | CONS ---
Assessment/Plan Assessment/Plan Hospital Course 78 yo F with hx of ESRD on HD and other comorbidities who presents with ams in contest of respiratory sx. She was noted to be acutely encephalopathic following HD on 11/28, for which neurology is consulted. The clinical picture suggests an acute on chronic encephalopathy A focal GUIDE ESCORT process is unlikely. MRI brain was technically limited, but was otherwise without obvious acute intracranial pathology. HCT on 11/25 was the same. EEG was without obvious epileptiform activity.. ammonia wnl, TSH nl, B12 ok P: Ok to defer additional neuroimaging for now. [place] as necessary Consider seroquel hs and prn Cont to limit other sedating medications where possible Cont medical management per primary Will follow Consultation Date/Type/Reason Admit Date/Time Nov 25, 2018 at 13:18 Type of Consult Neurology Reason for Consultation ams Requesting Provider: GENNY SULLIVAN Date/Time of Note DATE: 12/09/18 TIME: 10:16 24 HR Interval Summary Free Text/Dictation Continues acute care. Exam Vital Signs Vitals Vital Signs Date Temp Pulse Resp B/P (MAP) Pulse Ox O2 O2 Flow FiO2 Time Delivery Rate 12/09/18 2.0 09:43 12/09/18 57 20 96 Nasal 09:43 Cannula 12/09/18 98.1 158/87 07:57 (110) 12/07/18 21 09:51 Intake and Output 12/08/18 12/08/18 12/09/18 1515:00 23:00 07:00 IntakeIntake Total 400 ml 0 ml OutputOutput Total 2600 ml 25 ml 20 ml BalanceBalance -2600 ml 375 ml -20 ml Exam PE: Gen Appearance: Calm, NAD HEENT: Normocephalic Cardiovascular: Regular rate Abdomen: Soft Extremities: Dry NE: The patient was asleep though easily arousable to voice.. Oriented to self and hospital. Fund of knowledge was limited. Cranial nerve examination was limited by mental status. Pupils were equal and reactive to light. There was no afferent pupillary defect. Funduscopic examination was limited. Face was grossly symmetric, w/ present corneal and cough reflexes. Tone was normal. Muscle bulk was normal. I did not see fasciculations. The patient had symmetric movement of her extremities. Coordination and gait testing was limited by mental status. Arm and leg reflexes were within normal limits and symmetric. Lai's sign was absent. Plantar responses were flexor. NICHO HENDRIX NP Dec 09, 2018 10:16
--- NOTE | 2018-12-09 12:24 | CONS ---
Assessment/Plan Assessment/Plan Hospital Course (Demo Recall) 78-year-old female with a history of hypertension, CHF, chronic kidney disease, diabetes mellitus, pulmonary embolism, status post surgery, atrial fibrillation admitted originally to [facility] for respiratory failure, transferred to [facility]. At [facility] pt was found to be hypotensive and transferred to [facility]. We were consulted for anemia and positive guaiac stool Interval hx: No signs of GI bleeding. No acute changes 1. Anemia due to the chronic gastrointestinal blood loss and also chronic disease. -Capsule endoscopy and EGD reports from [facility] are unremarkable. 2. Diabetes mellitus. 3. Thrombocytopenia. 4. Bronchial asthma. 5. Atrial fibrillation. 6. Acute on chronic renal failure 7. Mildly elevated CEA at 6.6 Plan Swallow yeison Spoke with daughter Janee over phone who states family does not want a colonoscopy Monitor HH and for active GI bleeding Pt needs colonoscopy since CEA elevated and positive FOB and family hx of colon cancer Pt examined and plan of care discussed with Dr. Schaffer Consultation Date/Type/Reason Admit Date/Time Nov 25, 2018 at 13:18 Initial Consult Date 11/26/18 Requesting Provider: GENNY SULLIVAN Date/Time of Note DATE: 12/09/18 TIME: 12:23 Exam/Review of Systems Exam Vitals Vital Signs Date Temp Pulse Resp B/P (MAP) Pulse Ox O2 O2 Flow FiO2 Time Delivery Rate 12/09/18 98.7 75 17 147/58 99 11:24 (87) 12/09/18 2.0 09:43 12/09/18 Nasal 09:43 Cannula 12/07/18 21 09:51 Intake and Output 12/08/18 12/08/18 12/09/18 1515:00 23:00 07:00 IntakeIntake Total 400 ml 0 ml OutputOutput Total 2600 ml 25 ml 20 ml BalanceBalance -2600 ml 375 ml -20 ml Constitutional: alert Psych: no complaints Head: normocephalic Eyes: nl sclera, PERRL ENMT: mucosa pink and moist Respiratory: normal air movement Gastrointestinal: soft, non-tender Neurological: nl mental status Results Result Diagram: 12/07/18 1709 12/07/18 1709 Results 24hrs Laboratory Tests Test 12/08/18 17:29 12/08/18 20:43 12/09/18 00:32 12/09/18 05:24 Bedside Glucose 171 192 174 159 Test 12/09/18 07:52 12/09/18 08:43 Bedside Glucose 159 167 Medications Medication Current Medications Hydralazine HCl (Apresoline) 10 mg Q6H PRN IV SBP >160 Last administered on 12/04/18 13:26; Admin Dose 10 MG; Start 11/25/18 at 14:00 Ondansetron HCl (Zofran Inj) 4 mg Q4H PRN IV NAUSEA AND/OR VOMITING Last administered on 11/29/18 01:10; Admin Dose 4 MG; Start 11/25/18 at 14:00 Insulin Glargine (Lantus) 10 units DAILY@0800 SC Last administered on 12/09/18 08:55; Admin Dose 10 UNITS; Start 11/26/18 at 08:00 Insulin Aspart (Novolog Insulin Pen) NOVOLOG *MILD* ALGORI... Q4 SC Last administered on 12/09/18 08:55; Admin Dose 1 UNIT; Start 11/25/18 at 17:00 Albuterol/ Ipratropium (Duoneb) 3 ml Q6H RESP THERAPY PRN HHN SHORTNESS OF BREATH Last administered on 11/26/18at 20:17; Admin Dose 3 ML; Start 11/25/18 at 14:00 Acetaminophen (Tylenol Supp) 650 mg Q4H PRN [place] MILD PAIN(1-3) OR TEMP>38C Last administered on 12/02/18at 09:25; Admin Dose 650 MG; Start 11/25/18 at 14:00 Miscellaneous Information 1 ea NOTE XX ; Start 11/25/18 at 14:30 Glucose (Glutose) 15 gm Q15M PRN PO DECREASED GLUCOSE; Start 11/25/18 at 14:30 Glucose (Glutose) 22.5 gm Q15M PRN PO DECREASED GLUCOSE; Start 11/25/18 at 14:30 Dextrose (D50w Syringe) 25 ml Q15M PRN IV DECREASED GLUCOSE; Start 11/25/18 at 14:30 Dextrose (D50w Syringe) 50 ml Q15M PRN IV DECREASED GLUCOSE; Start 11/25/18 at 14:30 Glucagon (Glucagen) 1 mg Q15M PRN IM DECREASED GLUCOSE; Start 11/25/18 at 14:30 Glucose (Glutose) 15 gm Q15M PRN BUCCAL DECREASED GLUCOSE; Start 11/25/18 at 14:30 Budesonide (Pulmicort (Neb)) 0.5 mg BID RESP THERAPY HHN Last administered on 12/09/18 09:43; Admin Dose 0.5 MG; Start 11/26/18 at 09:00 IV Flush (NS 10 ml) 10 ml PRN PRN IV IV PROTOCOL; Start 11/26/18 at 14:00 Metoprolol Tartrate (Lopressor) 5 mg Q4H PRN IV HR>110 Hold SBP<100 Last administered on 12/04/18 09:35; Admin Dose 5 MG; Start 11/26/18 at 18:00 Levothyroxine Sodium (Synthroid) 125 mcg DAILY@06 PO Last administered on 12/08/18 06:10; Admin Dose 125 MCG; Start 11/28/18 at 06:00 Albumin Human 100 ml @ 100 mls/hr DURING DIALYSIS PRN IV HYPOTENTION DURING HD Last administered on 12/03/18 10:51; Admin Dose 100 MLS/HR; Start 11/27/18 at 20:30 Acetaminophen (Tylenol Liquid) 650 mg Q4H PRN PO MILD PAIN(1-3)OR ELEVATED TEMP Last administered on 11/28/18 18:59; Admin Dose 650 MG; Start 11/28/18 at 16:00 Haloperidol (Haldol) 2 mg Q4 PRN IV AGITATION Last administered on 12/02/18 13:01; Admin Dose 2 MG; Start 11/29/18 at 12:00 Quetiapine Fumarate (Seroquel) 25 mg QHS PO Last administered on 12/08/18 20:42; Admin Dose 25 MG; Start 11/29/18 at 21:00 Pantoprazole (Protonix Tab) 40 mg DAILY@06 PO Last administered on 12/08/18 06:10; Admin Dose 40 MG; Start 11/30/18 at 06:00 Dextrose/Sodium Chloride 1,000 ml @ 40 mls/hr Q24H IV Last administered on 11/13 22:47; Admin Dose 40 MLS/HR; Start 11/30/18 at 12:30 Enalaprilat (Vasotec Iv) 1.25 mg Q2H PRN IV ELEVATED SYSTOLIC BP Last administered on 12/03/18 02:30; Admin Dose 1.25 MG; Start 12/03/18 at 00:30 Epoetin Kavon-epbx (RETACRIT(esrd)) 10,000 unit MoWeFr@1700 SC Last administered on 12/07/18 17:56; Admin Dose 10,000 UNIT; Start 12/03/18 at 17:00 Clonidine HCl (Catapres-Tts 2 Patch) 1 patch Q7D TRANSDERM Last administered on 12/03/18 14:25; Admin Dose 1 PATCH; Start 12/03/18 at 13:00 Docusate Sodium (Colace) 100 mg BID PRN PO CONSTIPATION; Start 12/05/18 at 19:00 Lorazepam (Ativan) 0.5 mg Q8H PRN IV AGITATION Last administered on 12/09/18 01:16; Admin Dose 0.5 MG; Start 12/07/18 at 12:30 Metoprolol Tartrate (Lopressor) 50 mg BID PO Last administered on 12/09/18at 08:45; Admin Dose 50 MG; Start 12/07/18 at 21:00 SOLOMON BYRD Dec 09, 2018 12:24
[2018-12-09] MEDS: DEXTROSE 5%-0.45% NACL 1,000 ML IV SCH (12:30)
--- NOTE | 2018-12-09 14:33 | CONS ---
Consult Date/Type/Reason Admit Date/Time Nov 25, 2018 at 13:18 Initial Consult Date 11/26/18 Type of Consultation: Pulm Requesting Provider: GENNY SULLIVAN Date/Time of Note DATE: 12/09/18 TIME: 14:32 Subjective NO acute events - pt comfortable - still in a. fib - rate better controlled now - con't HD as needed. ROS: No fever, no chills, no nausea, no vomiting, no diarrhea/constipation - per nurse Objective Vitals Vital Signs Date Temp Pulse Resp B/P (MAP) Pulse Ox O2 O2 Flow FiO2 Time Delivery Rate 12/09/18 79 12:00 12/09/18 98.7 17 147/58 99 11:24 (87) 12/09/18 2.0 09:43 12/09/18 Nasal 09:43 Cannula 12/07/18 21 09:51 Intake and Output 12/08/18 12/08/18 12/09/18 1515:00 23:00 07:00 IntakeIntake Total 400 ml 0 ml OutputOutput Total 2600 ml 25 ml 20 ml BalanceBalance -2600 ml 375 ml -20 ml Exam General: WN/WD/NAD, AOx more comfortable today HEENT: Unicetric/atraumatic/EOMI (does not follow commands) NECK: JVD elevated, no thyromegaly Lymph: no lymphadenopathy HEART: ir irregular with no S3, II/ systolic murmur at apex LUNGS: Coarse sounds ABD: soft, NT, ND, +BS : Intact Neuro: non focal SKIN: chronic changes EXT: trace edema Results/Medications Result Diagram: 12/07/18 1709 12/07/18 1709 Results 24 hrs Laboratory Tests Test 12/08/18 17:29 12/08/18 20:43 12/09/18 00:32 12/09/18 05:24 Bedside Glucose 171 192 174 159 Test 12/09/18 07:52 12/09/18 08:43 12/09/18 12:43 Bedside Glucose 159 167 162 Home Meds Reported Medications Alprazolam* (Alprazolam*) 0.25 Mg Tablet, 0.25 MG PO NEEDED PRN for ANXIETY, TAB 11/26/18 Magnesium Oxide* (Mag-Oxide*) 400 Mg Tablet, 400 MG PO BID, TAB 11/26/18 Losartan Potassium* (Losartan Potassium*) 50 Mg Tablet, 50 MG PO BID PRN for NEEDED, TAB 11/26/18 Atorvastatin Calcium* (Atorvastatin Calcium*) 20 Mg Tablet, 20 MG PO QHS, #30 TAB 11/26/18 Potassium Chloride* (Potassium Chloride*) 8 Meq Capsule.er, 8 MEQ PO DAILY, CAP 11/26/18 Dronedarone Hydrochloride* (Multaq*) 400 Mg Tablet, 400 MG PO BID, TAB 11/26/18 Insulin Aspart (Novolog) 100 Unit/1 Ml Cartridge, 8 UNIT SQ AC BREAKFAST DINNER 11/26/18 Clopidogrel Bisulfate* (Clopidogrel Bisulfate*) 75 Mg Tablet, 75 MG PO DAILY, #30 TAB 11/26/18 Carvedilol* (Carvedilol*) 3.125 Mg Tablet, 3.125 MG PO BID, #60 TAB 11/26/18 Gabapentin* (Gabapentin*) 300 Mg Capsule, 300 MG PO DAILY, #60 CAP NEEDED 11/26/18 Aspirin* (Aspirin* EC) 81 Mg Tablet.dr, 81 MG PO DAILY, TAB 11/26/18 Amlodipine Besylate* (Amlodipine Besylate*) 10 Mg Tablet, 10 MG PO DAILY, #30 TAB TAKE NEEDED 11/26/18 Famotidine* (Famotidine*) 20 Mg Tablet, 20 MG PO BID, #30 TAB 11/26/18 Furosemide* (Furosemide*) 40 Mg Tablet, 40 MG PO BID, TAB 11/26/18 Levothyroxine Sodium* (Levothyroxine Sodium*) 125 Mcg Tablet, 125 MCG PO BEFORE BREAKFAST, #30 TAB 11/26/18 Bisacodyl (Ducodyl) 5 Mg Tablet.dr, 5 MG PO NEEDED 11/26/18 Ergocalciferol (Vitamin D2) (VITAMIN D2) 50,000 Unit Capsule, 67231 UNIT PO Q SAT, CAP 11/26/18 Lisinopril* (Lisinopril*) 5 Mg Tablet, 5 MG PO DAILY, #30 TAB TAKE NEEDED 11/26/18 Clonidine Hcl* (Clonidine Hcl*) 0.2 Mg Tablet, 0.2 MG PO BID PRN for HTN, TAB 11/26/18 Clonidine Patch (CLONIDINE PATCH) 0.2 Mg/24 Hr Patch, 1 PATCH.WK TD Q7D, #4 PATCH.WK 11/26/18 Hydralazine Hcl* (Apresoline*) 50 Mg Tab, 50 MG PO BID PRN for HTN, #60 TAB TAKE NEEDED 11/26/18 Insulin Glargine,Hum.rec.anlog (Basaglar Kwikpen U-100) 100 Unit/1 Ml Insuln.pen, 40 UNIT SC QHS, EA 11/26/18 Docusate Sodium* (Colace*) 250 Mg Capsule, 250 MG PO BID, #60 CAP 11/26/18 Ferrous Sulfate* (Ferrous Sulfate*) 325 Mg Tabec, 325 MG PO BID, TAB 11/26/18 Medications Current Medications Hydralazine HCl (Apresoline) 10 mg Q6H PRN IV SBP >160 Last administered on 12/04/18at 13:26; Admin Dose 10 MG; Start 11/25/18 at 14:00 Ondansetron HCl (Zofran Inj) 4 mg Q4H PRN IV NAUSEA AND/OR VOMITING Last admi nistered on 11/29/18at 01:10; Admin Dose 4 MG; Start 11/25/18 at 14:00 Insulin Glargine (Lantus) 10 units DAILY@0800 SC Last administered on 12/09/18 08:55; Admin Dose 10 UNITS; Start 11/26/18 at 08:00 Insulin Aspart (Novolog Insulin Pen) NOVOLOG *MILD* ALGORI... Q4 SC Last administered on 12/09/18at 12:50; Admin Dose 1 UNIT; Start 11/25/18 at 17:00 Albuterol/ Ipratropium (Duoneb) 3 ml Q6H RESP THERAPY PRN HHN SHORTNESS OF BREATH Last administered on 11/26/18at 20:17; Admin Dose 3 ML; Start 11/25/18 at 14:00 Acetaminophen (Tylenol Supp) 650 mg Q4H PRN [place] MILD PAIN(1-3) OR TEMP>38C Last administered on 12/02/18at 09:25; Admin Dose 650 MG; Start 11/25/18 at 14:00 Miscellaneous Information 1 ea NOTE XX ; Start 11/25/18 at 14:30 Glucose (Glutose) 15 gm Q15M PRN PO DECREASED GLUCOSE; Start 11/25/18 at 14:30 Glucose (Glutose) 22.5 gm Q15M PRN PO DECREASED GLUCOSE; Start 11/25/18 at 14:30 Dextrose (D50w Syringe) 25 ml Q15M PRN IV DECREASED GLUCOSE; Start 11/25/18 at 14:30 Dextrose (D50w Syringe) 50 ml Q15M PRN IV DECREASED GLUCOSE; Start 11/25/18 at 14:30 Glucagon (Glucagen) 1 mg Q15M PRN IM DECREASED GLUCOSE; Start 11/25/18 at 14:30 Glucose (Glutose) 15 gm Q15M PRN BUCCAL DECREASED GLUCOSE; Start 11/25/18 at 14:30 Budesonide (Pulmicort (Neb)) 0.5 mg BID RESP THERAPY HHN Last administered on 12/09/18at 09:43; Admin Dose 0.5 MG; Start 11/26/18 at 09:00 IV Flush (NS 10 ml) 10 ml PRN PRN IV IV PROTOCOL; Start 11/26/18 at 14:00 Metoprolol Tartrate (Lopressor) 5 mg Q4H PRN IV HR>110 Hold SBP<100 Last administered on 12/04/18at 09:35; Admin Dose 5 MG; Start 11/26/18 at 18:00 Levothyroxine Sodium (Synthroid) 125 mcg DAILY@06 PO Last administered on 12/08/18at 06:10; Admin Dose 125 MCG; Start 11/28/18 at 06:00 Albumin Human 100 ml @ 100 mls/hr DURING DIALYSIS PRN IV HYPOTENTION DURING HD Last administered on 12/03/18at 10:51; Admin Dose 100 MLS/HR; Start 11/27/18 at 20:30 Acetaminophen (Tylenol Liquid) 650 mg Q4H PRN PO MILD PAIN(1-3)OR ELEVATED TEMP Last administered on 11/28/18 18:59; Admin Dose 650 MG; Start 11/28/18 at 16:00 Haloperidol (Haldol) 2 mg Q4 PRN IV AGITATION Last administered on 12/02/18 13:01; Admin Dose 2 MG; Start 11/29/18 at 12:00 Quetiapine Fumarate (Seroquel) 25 mg QHS PO Last administered on 12/08/18 20:42; Admin Dose 25 MG; Start 11/29/18 at 21:00 Pantoprazole (Protonix Tab) 40 mg DAILY@06 PO Last administered on 12/08/18 06:10; Admin Dose 40 MG; Start 11/30/18 at 06:00 Dextrose/Sodium Chloride 1,000 ml @ 40 mls/hr Q24H IV Last administered on 12/08/18at 22:47; Admin Dose 40 MLS/HR; Start 11/30/18 at 12:30 Enalaprilat (Vasotec Iv) 1.25 mg Q2H PRN IV ELEVATED SYSTOLIC BP Last administered on 12/03/18at 02:30; Admin Dose 1.25 MG; Start 12/03/18 at 00:30 Epoetin Kavon-epbx (RETACRIT(esrd)) 10,000 unit MoWeFr@1700 SC Last administered on 12/07/18at 17:56; Admin Dose 10,000 UNIT; Start 12/03/18 at 17:00 Clonidine HCl (Catapres-Tts 2 Patch) 1 patch Q7D TRANSDERM Last administered on 12/03/18at 14:25; Admin Dose 1 PATCH; Start 12/03/18 at 13:00 Docusate Sodium (Colace) 100 mg BID PRN PO CONSTIPATION; Start 12/05/18 at 19:00 Lorazepam (Ativan) 0.5 mg Q8H PRN IV AGITATION Last administered on 12/09/18at 01:16; Admin Dose 0.5 MG; Start 12/07/18 at 12:30 Metoprolol Tartrate (Lopressor) 50 mg BID PO Last administered on 12/09/18at 08:45; Admin Dose 50 MG; Start 12/07/18 at 21:00 Assessment/Plan Hospital Course (Demo Recall) 1. Hypotension, borderline, not on pressure support at this time - stable now - con't to follow - HD now, tolerated HD well - labile - luis Rx with renal team - labile - Rx with renal team. Better now. Improved. 2. Atrial fibrillation, primarily rate controlled off of antihypertensives at this time - not anti-coag now r/o GIB and decreased H/H - stable now - rate controlled - stable now. . ASA/plavix for now. RATE CONTROLLED now. 3. Anemia, worsening with guaiac positive stool consistent with gastrointestinal bleed - GI follows. 4. Diabetes mellitus. 5. Acute on chronic renal failure, being initiated on hemodialysis - HD now. Tolerate well day prior. 6. Altered mental state- unchanged 7. Diastolic congestive heart failure due to a preserved EF by most recent echo and findings by chest x-ray - remove fluid with HD. Better fluid staus. 8. History of coronary artery disease, nonobstructive by outside hospital catheterization - no intervention planned now. 9. Shortness of breath with hypothyroidism. Improved. 10. Diabetes mellitus - on meds, keep euglycemic ALFRED PEPE MD Dec 09, 2018 14:33
--- NOTE | 2018-12-09 14:57 | PN ---
Date/Time of Note Date/Time of Note DATE: 12/09/18 TIME: 14:57 Assessment/Plan VTE Prophylaxis Risk score (from [facility])>0 risk: 12 SCD applied (from [facility]): No SCD contraindicated: other Pharmacological prophylaxis: other Lines/Catheters IV C[facility]ter Type (from [facility] Central line still needed: Yes Urinary Cath still in place: Yes Reason Cath still needed: urinary retention Assessment/Plan Assessment/Plan 1. Oliguric acute kidney injury on top of chronic kidney disease stage IV with previous baseline creatinine around 2.0 mg/dL. Etiology of acute kidney injury was secondary to acute tubular necrosis due to hemodynamic sepsis. \ - HD per Nephrology -on case 2. Anemia, etiology is multifactorial secondary to chronic kidney disease, iron deficiency, questionable GI bleed. Patient is currently on IV iron on Epogen. - Continue to monitor CBC - Continue PPI. - per GI 3. Mineral bone disorder. Monitor calcium and phosphorus levels. 4. Encephalopathy. Etiology is toxic metabolic, possibly uremic. Continue to monitor. 5. Coronary artery disease. Continue medical management. 6. Diabetes. - Continue current insulin regimen. 7. Hypothyroidism. Continue Synthroid. 8. History of asthma. Continue current treatment plan. 9. History of atrial fibrillation. 10. Thrombocytopenia. Continue to monitor. 11. Hypertension. Blood pressure controlled. Plan of care discussed with Dr. Lind. Result Diagram: 12/07/18 1709 12/07/18 1709 Results 24hrs Laboratory Tests Test 12/08/18 17:29 12/08/18 20:43 12/09/18 00:32 12/09/18 05:24 Bedside Glucose 171 192 174 159 Test 12/09/18 07:52 12/09/18 08:43 12/09/18 12:43 Bedside Glucose 159 167 162 Subjective 24 Hr Interval Summary Free Text/Dictation - nad - confused but stable - no s/s of aspiration reported;tolerates diet - no new events reported last night dw staff Constitutional: requiring O2 ENT: no complaints Respiratory: no complaints Cardiovascular: no complaints Gastrointestinal: no complaints Exam/Review of Systems Exam Vitals Vital Signs Date Temp Pulse Resp B/P (MAP) Pulse Ox O2 O2 Flow FiO2 Time Delivery Rate 12/09/18 79 12:00 12/09/18 98.7 17 147/58 99 11:24 (87) 12/09/18 2.0 09:43 12/09/18 Nasal 09:43 Cannula 12/07/18 21 09:51 Intake and Output 12/08/18 12/08/18 12/09/18 1515:00 23:00 07:00 IntakeIntake Total 400 ml 0 ml OutputOutput Total 2600 ml 25 ml 20 ml BalanceBalance -2600 ml 375 ml -20 ml Results Results 24hrs Laboratory Tests Test 12/08/18 17:29 12/08/18 20:43 12/09/18 00:32 12/09/18 05:24 Bedside Glucose 171 192 174 159 Test 12/09/18 07:52 12/09/18 08:43 12/09/18 12:43 Bedside Glucose 159 167 162 Medications Medication Current Medications Hydralazine HCl (Apresoline) 10 mg Q6H PRN IV SBP >160 Last administered on 12/04/18 13:26; Admin Dose 10 MG; Start 11/25/18 at 14:00 Ondansetron HCl (Zofran Inj) 4 mg Q4H PRN IV NAUSEA AND/OR VOMITING Last administered on 11/29/18at 01:10; Admin Dose 4 MG; Start 11/25/18 at 14:00 Insulin Glargine (Lantus) 10 units DAILY@0800 SC Last administered on 12/09/18 08:55; Admin Dose 10 UNITS; Start 11/26/18 at 08:00 Insulin Aspart (Novolog Insulin Pen) NOVOLOG *MILD* ALGORI... Q4 SC Last administered on 12/09/18 12:50; Admin Dose 1 UNIT; Start 11/25/18 at 17:00 Albuterol/ Ipratropium (Duoneb) 3 ml Q6H RESP THERAPY PRN HHN SHORTNESS OF BREATH Last administered on 11/26/18at 20:17; Admin Dose 3 ML; Start 11/25/18 at 14:00 Acetaminophen (Tylenol Supp) 650 mg Q4H PRN [place] MILD PAIN(1-3) OR TEMP>38C Last administered on 12/02/18 09:25; Admin Dose 650 MG; Start 11/25/18 at 14:00 Miscellaneous Information 1 ea NOTE XX ; Start 11/25/18 at 14:30 Glucose (Glutose) 15 gm Q15M PRN PO DECREASED GLUCOSE; Start 11/25/18 at 14:30 Glucose (Glutose) 22.5 gm Q15M PRN PO DECREASED GLUCOSE; Start 11/25/18 at 14:30 Dextrose (D50w Syringe) 25 ml Q15M PRN IV DECREASED GLUCOSE; Start 11/25/18 at 14:30 Dextrose (D50w Syringe) 50 ml Q15M PRN IV DECREASED GLUCOSE; Start 11/25/18 at 14:30 Glucagon (Glucagen) 1 mg Q15M PRN IM DECREASED GLUCOSE; Start 11/25/18 at 14:30 Glucose (Glutose) 15 gm Q15M PRN BUCCAL DECREASED GLUCOSE; Start 11/25/18 at 14:30 Budesonide (Pulmicort (Neb)) 0.5 mg BID RESP THERAPY HHN Last administered on 12/09/18 09:43; Admin Dose 0.5 MG; Start 11/26/18 at 09:00 IV Flush (NS 10 ml) 10 ml PRN PRN IV IV PROTOCOL; Start 11/26/18 at 14:00 Metoprolol Tartrate (Lopressor) 5 mg Q4H PRN IV HR>110 Hold SBP<100 Last administered on 12/04/18 09:35; Admin Dose 5 MG; Start 11/26/18 at 18:00 Levothyroxine Sodium (Synthroid) 125 mcg DAILY@06 PO Last administered on 12/08/18 06:10; Admin Dose 125 MCG; Start 11/28/18 at 06:00 Albumin Human 100 ml @ 100 mls/hr DURING DIALYSIS PRN IV HYPOTENTION DURING HD Last administered on 12/03/18 10:51; Admin Dose 100 MLS/HR; Start 11/27/18 at 20:30 Acetaminophen (Tylenol Liquid) 650 mg Q4H PRN PO MILD PAIN(1-3)OR ELEVATED TEMP Last administered on 11/28/18 18:59; Admin Dose 650 MG; Start 11/28/18 at 16:00 Haloperidol (Haldol) 2 mg Q4 PRN IV AGITATION Last administered on 12/02/18 13:01; Admin Dose 2 MG; Start 11/29/18 at 12:00 Quetiapine Fumarate (Seroquel) 25 mg QHS PO Last administered on 12/08/18 20:42; Admin Dose 25 MG; Start 11/29/18 at 21:00 Pantoprazole (Protonix Tab) 40 mg DAILY@06 PO Last administered on 12/08/18 06:10; Admin Dose 40 MG; Start 11/30/18 at 06:00 Dextrose/Sodium Chloride 1,000 ml @ 40 mls/hr Q24H IV Last administered on 12/08/18 22:47; Admin Dose 40 MLS/HR; Start 11/30/18 at 12:30 Enalaprilat (Vasotec Iv) 1.25 mg Q2H PRN IV ELEVATED SYSTOLIC BP Last administered on 12/03/18 02:30; Admin Dose 1.25 MG; Start 12/03/18 at 00:30 Epoetin Kavon-epbx (RETACRIT(esrd)) 10,000 unit MoWeFr@1700 SC Last administered on 12/07/18 17:56; Admin Dose 10,000 UNIT; Start 12/03/18 at 17:00 Clonidine HCl (Catapres-Tts 2 Patch) 1 patch Q7D TRANSDERM Last administered on 12/03/18 14:25; Admin Dose 1 PATCH; Start 12/03/18 at 13:00 Docusate Sodium (Colace) 100 mg BID PRN PO CONSTIPATION; Start 12/05/18 at 19:00 Lorazepam (Ativan) 0.5 mg Q8H PRN IV AGITATION Last administered on 12/09/18 01:16; Admin Dose 0.5 MG; Start 12/07/18 at 12:30 Metoprolol Tartrate (Lopressor) 50 mg BID PO Last administered on 12/09/18 08:45; Admin Dose 50 MG; Start 12/07/18 at 21:00 JODI HANSON Dec 09, 2018 14:57
--- NOTE | 2018-12-09 16:54 | CONS ---
Consult Date/Type/Reason Admit Date/Time Nov 25, 2018 at 13:18 Initial Consult Date 11/26/18 Type of Consultation: Pulm Requesting Provider: GENNY SULLIVAN Date/Time of Note DATE: 12/09/18 TIME: 16:53 Subjective No events noted overnight. Objective Vitals Vital Signs Date Temp Pulse Resp B/P (MAP) Pulse Ox O2 O2 Flow FiO2 Time Delivery Rate 12/09/18 98.2 65 16 107/45 93 15:16 (65) 12/09/18 2.0 09:43 12/09/18 Nasal 09:43 Cannula 12/07/18 21 09:51 Intake and Output 12/08/18 12/08/18 12/09/18 1515:00 23:00 07:00 IntakeIntake Total 400 ml 0 ml OutputOutput Total 2600 ml 25 ml 20 ml BalanceBalance -2600 ml 375 ml -20 ml Exam HEENT: Neck supple; no JVD; no LAD CVS: Irreg irreg, S1 and S2 CHEST: Coarse BS b/l ABD: Soft, NT, + BS EXT: No c/c; tr edema Results/Medications Result Diagram: 12/07/18 1709 12/07/18 1709 Results 24 hrs Laboratory Tests Test 12/08/18 17:29 12/08/18 20:43 12/09/18 00:32 12/09/18 05:24 Bedside Glucose 171 192 174 159 Test 12/09/18 07:52 12/09/18 08:43 12/09/18 12:43 Bedside Glucose 159 167 162 Home Meds Reported Medications Alprazolam* (Alprazolam*) 0.25 Mg Tablet, 0.25 MG PO NEEDED PRN for ANXIETY, TAB 11/26/18 Magnesium Oxide* (Mag-Oxide*) 400 Mg Tablet, 400 MG PO BID, TAB 11/26/18 Losartan Potassium* (Losartan Potassium*) 50 Mg Tablet, 50 MG PO BID PRN for NEEDED, TAB 11/26/18 Atorvastatin Calcium* (Atorvastatin Calcium*) 20 Mg Tablet, 20 MG PO QHS, #30 TAB 11/26/18 Potassium Chloride* (Potassium Chloride*) 8 Meq Capsule.er, 8 MEQ PO DAILY, CAP 11/26/18 Dronedarone Hydrochloride* (Multaq*) 400 Mg Tablet, 400 MG PO BID, TAB 11/26/18 Insulin Aspart (Novolog) 100 Unit/1 Ml Cartridge, 8 UNIT SQ AC BREAKFAST DINNER 11/26/18 Clopidogrel Bisulfate* (Clopidogrel Bisulfate*) 75 Mg Tablet, 75 MG PO DAILY, #30 TAB 11/26/18 Carvedilol* (Carvedilol*) 3.125 Mg Tablet, 3.125 MG PO BID, #60 TAB 11/26/18 Gabapentin* (Gabapentin*) 300 Mg Capsule, 300 MG PO DAILY, #60 CAP NEEDED 11/26/18 Aspirin* (Aspirin* EC) 81 Mg Tablet.dr, 81 MG PO DAILY, TAB 11/26/18 Amlodipine Besylate* (Amlodipine Besylate*) 10 Mg Tablet, 10 MG PO DAILY, #30 TAB TAKE NEEDED 11/26/18 Famotidine* (Famotidine*) 20 Mg Tablet, 20 MG PO BID, #30 TAB 11/26/18 Furosemide* (Furosemide*) 40 Mg Tablet, 40 MG PO BID, TAB 11/26/18 Levothyroxine Sodium* (Levothyroxine Sodium*) 125 Mcg Tablet, 125 MCG PO BEFORE BREAKFAST, #30 TAB 11/26/18 Bisacodyl (Ducodyl) 5 Mg Tablet.dr, 5 MG PO NEEDED 11/26/18 Ergocalciferol (Vitamin D2) (VITAMIN D2) 50,000 Unit Capsule, 49712 UNIT PO Q SAT, CAP 11/26/18 Lisinopril* (Lisinopril*) 5 Mg Tablet, 5 MG PO DAILY, #30 TAB TAKE NEEDED 11/26/18 Clonidine Hcl* (Clonidine Hcl*) 0.2 Mg Tablet, 0.2 MG PO BID PRN for HTN, TAB 11/26/18 Clonidine Patch (CLONIDINE PATCH) 0.2 Mg/24 Hr Patch, 1 PATCH.WK TD Q7D, #4 PATCH.WK 11/26/18 Hydralazine Hcl* (Apresoline*) 50 Mg Tab, 50 MG PO BID PRN for HTN, #60 TAB TAKE NEEDED 11/26/18 Insulin Glargine,Hum.rec.anlog (Basaglar Kwikpen U-100) 100 Unit/1 Ml Insuln.pen, 40 UNIT SC QHS, EA 11/26/18 Docusate Sodium* (Colace*) 250 Mg Capsule, 250 MG PO BID, #60 CAP 11/26/18 Ferrous Sulfate* (Ferrous Sulfate*) 325 Mg Tabec, 325 MG PO BID, TAB 11/26/18 Medications Current Medications Hydralazine HCl (Apresoline) 10 mg Q6H PRN IV SBP >160 Last administered on 12/04/18at 13:26; Admin Dose 10 MG; Start 11/25/18 at 14:00 Ondansetron HCl (Zofran Inj) 4 mg Q4H PRN IV NAUSEA AND/OR VOMITING Last administered on 11/29/18at 01:10; Admin Dose 4 MG; Start 11/25/18 at 14:00 Insulin Glargine (Lantus) 10 units DAILY@0800 SC Last administered on 12/09/18at 08:55; Admin Dose 10 UNITS; Start 11/26/18 at 08:00 Insulin Aspart (Novolog Insulin Pen) NOVOLOG *MILD* ALGORI... Q4 SC Last administered on 12/09/18at 12:50; Admin Dose 1 UNIT; Start 11/25/18 at 17:00 Albuterol/ Ipratropium (Duoneb) 3 ml Q6H RESP THERAPY PRN HHN SHORTNESS OF BREATH Last administered on 11/26/18at 20:17; Admin Dose 3 ML; Start 11/25/18 at 14:00 Acetaminophen (Tylenol Supp) 650 mg Q4H PRN [place] MILD PAIN(1-3) OR TEMP>38C Last administered on 12/02/18at 09:25; Admin Dose 650 MG; Start 11/25/18 at 14:00 Miscellaneous Information 1 ea NOTE XX ; Start 11/25/18 at 14:30 Glucose (Glutose) 15 gm Q15M PRN PO DECREASED GLUCOSE; Start 11/25/18 at 14:30 Glucose (Glutose) 22.5 gm Q15M PRN PO DECREASED GLUCOSE; Start 11/25/18 at 14:30 Dextrose (D50w Syringe) 25 ml Q15M PRN IV DECREASED GLUCOSE; Start 11/25/18 at 14:30 Dextrose (D50w Syringe) 50 ml Q15M PRN IV DECREASED GLUCOSE; Start 11/25/18 at 14:30 Glucagon (Glucagen) 1 mg Q15M PRN IM DECREASED GLUCOSE; Start 11/25/18 at 14:30 Glucose (Glutose) 15 gm Q15M PRN BUCCAL DECREASED GLUCOSE; Start 11/25/18 at 14:30 Budesonide (Pulmicort (Neb)) 0.5 mg BID RESP THERAPY HHN Last administered on 12/09/18 09:43; Admin Dose 0.5 MG; Start 11/26/18 at 09:00 IV Flush (NS 10 ml) 10 ml PRN PRN IV IV PROTOCOL; Start 11/26/18 at 14:00 Metoprolol Tartrate (Lopressor) 5 mg Q4H PRN IV HR>110 Hold SBP<100 Last administered on 12/04/18 09:35; Admin Dose 5 MG; Start 11/26/18 at 18:00 Levothyroxine Sodium (Synthroid) 125 mcg DAILY@06 PO Last administered on 12/08/18 06:10; Admin Dose 125 MCG; Start 11/28/18 at 06:00 Albumin Human 100 ml @ 100 mls/hr DURING DIALYSIS PRN IV HYPOTENTION DURING HD Last administered on 12/03/18 10:51; Admin Dose 100 MLS/HR; Start 11/27/18 at 20:30 Acetaminophen (Tylenol Liquid) 650 mg Q4H PRN PO MILD PAIN(1-3)OR ELEVATED TEMP Last administered on 11/28/18 18:59; Admin Dose 650 MG; Start 11/28/18 at 16:00 Haloperidol (Haldol) 2 mg Q4 PRN IV AGITATION Last administered on 12/02/18 13:01; Admin Dose 2 MG; Start 11/29/18 at 12:00 Quetiapine Fumarate (Seroquel) 25 mg QHS PO Last administered on 12/08/18 20:42; Admin Dose 25 MG; Start 11/29/18 at 21:00 Pantoprazole (Protonix Tab) 40 mg DAILY@06 PO Last administered on 12/08/18 06:10; Admin Dose 40 MG; Start 11/30/18 at 06:00 Dextrose/Sodium Chloride 1,000 ml @ 40 mls/hr Q24H IV Last administered on 12/08/18 22:47; Admin Dose 40 MLS/HR; Start 11/30/18 at 12:30 Enalaprilat (Vasotec Iv) 1.25 mg Q2H PRN IV ELEVATED SYSTOLIC BP Last administered on 12/03/18 02:30; Admin Dose 1.25 MG; Start 12/03/18 at 00:30 Epoetin Kaovn-epbx (RETACRIT(esrd)) 10,000 unit MoWeFr@1700 SC Last administered on 12/07/18at 17:56; Admin Dose 10,000 UNIT; Start 12/03/18 at 17:00 Clonidine HCl (Catapres-Tts 2 Patch) 1 patch Q7D TRANSDERM Last administered on 12/03/18at 14:25; Admin Dose 1 PATCH; Start 12/03/18 at 13:00 Docusate Sodium (Colace) 100 mg BID PRN PO CONSTIPATION; Start 12/05/18 at 19:00 Lorazepam (Ativan) 0.5 mg Q8H PRN IV AGITATION Last administered on 12/09/18at 01:16; Admin Dose 0.5 MG; Start 12/07/18 at 12:30 Metoprolol Tartrate (Lopressor) 50 mg BID PO Last administered on 12/09/18at 08:45; Admin Dose 50 MG; Start 12/07/18 at 21:00 Assessment/Plan Assessment/Plan (Daily) IMP: 1. CKD 2. CHF 3. Afib 4. h/o PE 5. DM 6. Anemia Management as per PMD plans No new pulmonary recs. WEN BURROWS MD Dec 09, 2018 16:54
[2018-12-09] MEDS: QUETIAPINE 25 MG TAB PO SCH (20:31)
[2018-12-10] VITALS (26 sets, daily range): BP systolic 135–188; BP diastolic 65–100; PULSE 17–170; RESP 17–20
[2018-12-10] MEDS: INSULIN ASPART [NOVOLOG] 3 ML PEN SC SCH ×6 (00:41→22:44)
[2018-12-10] MEDS: DEXTROSE 5%-0.45% NACL 1,000 ML IV SCH (01:03)
[2018-12-10] MEDS: HALOPERIDOL 5 MG INJ IV PRN (04:01)
[2018-12-10] MEDS: PANTOPRAZOLE (EC) 40 MG TAB PO SCH (05:16)
[2018-12-10] MEDS: LEVOTHYROXINE 125 MCG TAB PO SCH (05:25)
--- NOTE | 2018-12-10 08:03 | CONS ---
Assessment/Plan Assessment/Plan Hospital Course (Demo Recall) 78-year-old female with a history of hypertension, CHF, chronic kidney disease, diabetes mellitus, pulmonary embolism, status post surgery, atrial fibrillation admitted originally to [facility], [place] for respiratory failure, transferred to [place]. At [place] pt was found to be hypotensive and transferred to [facility]. We were consulted for anemia and positive guaiac stool Interval hx: No signs of GI bleeding. No acute changes . HD today 1. Anemia due to the chronic gastrointestinal blood loss and also chronic disease. -Capsule endoscopy and EGD reports from [facility] are unremarkable. 2. Diabetes mellitus. 3. Thrombocytopenia. 4. Bronchial asthma. 5. Atrial fibrillation. 6. Acute on chronic renal failure 7. Mildly elevated CEA at 6.6 Plan AM labs tomorrow Consider Iron supplementation Swallow eval pending Spoke with daughter Janee over phone who states family does not want a colonoscopy Monitor HH and for active GI bleeding Pt needs colonoscopy since CEA elevated and positive FOB and family hx of colon cancer Pt examined and plan of care discussed with Dr. Schaffer Consultation Date/Type/Reason Admit Date/Time Nov 25, 2018 at 13:18 Initial Consult Date 11/26/18 Requesting Provider: GENNY SULLIVAN Date/Time of Note DATE: 12/10/18 TIME: 08:02 Exam/Review of Systems Exam Vitals Vital Signs Date Temp Pulse Resp B/P (MAP) Pulse Ox O2 O2 Flow FiO2 Time Delivery Rate 12/10/18 98.0 99 20 135/65 98 07:50 (88) 12/09/18 4.0 20:25 12/09/18 Nasal 20:25 Cannula 12/07/18 21 09:51 Intake and Output 12/09/18 12/09/18 12/10/18 1414:59 22:59 06:59 IntakeIntake Total 480 ml OutputOutput Total 25 ml BalanceBalance 455 ml Results Result Diagram: 12/07/18 1709 12/07/18 1709 Results 24hrs Laboratory Tests Test 12/09/18 08:43 12/09/18 12:43 12/09/18 17:25 12/09/18 20:28 Bedside Glucose 167 162 132 145 Test 12/10/18 00:35 12/10/18 05:19 12/10/18 07:42 Bedside Glucose 154 156 125 Medications Medication Current Medications Hydralazine HCl (Apresoline) 10 mg Q6H PRN IV SBP >160 Last administered on 12/04/18 13:26; Admin Dose 10 MG; Start 11/25/18 at 14:00 Ondansetron HCl (Zofran Inj) 4 mg Q4H PRN IV NAUSEA AND/OR VOMITING Last administered on 11/29/18at 01:10; Admin Dose 4 MG; Start 11/25/18 at 14:00 Insulin Glargine (Lantus) 10 units DAILY@0800 SC Last administered on 12/09/18at 08:55; Admin Dose 10 UNITS; Start 11/26/18 at 08:00 Insulin Aspart (Novolog Insulin Pen) NOVOLOG *MILD* ALGORI... Q4 SC Last administered on 12/10/18 05:25; Admin Dose 1 UNIT; Start 11/25/18 at 17:00 Albuterol/ Ipratropium (Duoneb) 3 ml Q6H RESP THERAPY PRN HHN SHORTNESS OF BREATH Last administered on 11/26/18at 20:17; Admin Dose 3 ML; Start 11/25/18 at 14:00 Acetaminophen (Tylenol Supp) 650 mg Q4H PRN [place] MILD PAIN(1-3) OR TEMP>38C Last administered on 12/02/18at 09:25; Admin Dose 650 MG; Start 11/25/18 at 14:00 Miscellaneous Information 1 ea NOTE XX ; Start 11/25/18 at 14:30 Glucose (Glutose) 15 gm Q15M PRN PO DECREASED GLUCOSE; Start 11/25/18 at 14:30 Glucose (Glutose) 22.5 gm Q15M PRN PO DECREASED GLUCOSE; Start 11/25/18 at 14:30 Dextrose (D50w Syringe) 25 ml Q15M PRN IV DECREASED GLUCOSE; Start 11/25/18 at 14:30 Dextrose (D50w Syringe) 50 ml Q15M PRN IV DECREASED GLUCOSE; Start 11/25/18 at 14:30 Glucagon (Glucagen) 1 mg Q15M PRN IM DECREASED GLUCOSE; Start 11/25/18 at 14:30 Glucose (Glutose) 15 gm Q15M PRN BUCCAL DECREASED GLUCOSE; Start 11/25/18 at 14:30 Budesonide (Pulmicort (Neb)) 0.5 mg BID RESP THERAPY HHN Last administered on 12/09/18 20:25; Admin Dose 0.5 MG; Start 11/26/18 at 09:00 IV Flush (NS 10 ml) 10 ml PRN PRN IV IV PROTOCOL; Start 11/26/18 at 14:00 Metoprolol Tartrate (Lopressor) 5 mg Q4H PRN IV HR>110 Hold SBP<100 Last administered on 12/04/18 09:35; Admin Dose 5 MG; Start 11/26/18 at 18:00 Levothyroxine Sodium (Synthroid) 125 mcg DAILY@06 PO Last administered on 12/08/18 06:10; Admin Dose 125 MCG; Start 11/28/18 at 06:00 Albumin Human 100 ml @ 100 mls/hr DURING DIALYSIS PRN IV HYPOTENTION DURING HD Last administered on 12/03/18 10:51; Admin Dose 100 MLS/HR; Start 11/27/18 at 20:30 Acetaminophen (Tylenol Liquid) 650 mg Q4H PRN PO MILD PAIN(1-3)OR ELEVATED TEMP Last administered on 11/28/18 18:59; Admin Dose 650 MG; Start 11/28/18 at 16:00 Haloperidol (Haldol) 2 mg Q4 PRN IV AGITATION Last administered on 12/10/18 04:01; Admin Dose 2 MG; Start 11/29/18 at 12:00 Quetiapine Fumarate (Seroquel) 25 mg QHS PO Last administered on 12/09/18 20:31; Admin Dose 25 MG; Start 11/29/18 at 21:00 Pantoprazole (Protonix Tab) 40 mg DAILY@06 PO Last administered on 12/08/18 06:10; Admin Dose 40 MG; Start 11/30/18 at 06:00 Dextrose/Sodium Chloride 1,000 ml @ 40 mls/hr Q24H IV Last administered on 12/10/18 01:03; Admin Dose 40 MLS/HR; Start 11/30/18 at 12:30 Enalaprilat (Vasotec Iv) 1.25 mg Q2H PRN IV ELEVATED SYSTOLIC BP Last admini stered on 12/03/18 02:30; Admin Dose 1.25 MG; Start 12/03/18 at 00:30 Epoetin Kavon-epbx (RETACRIT(esrd)) 10,000 unit MoWeFr@1700 SC Last administered on 12/07/18at 17:56; Admin Dose 10,000 UNIT; Start 12/03/18 at 17:00 Clonidine HCl (Catapres-Tts 2 Patch) 1 patch Q7D TRANSDERM Last administered on 12/03/18at 14:25; Admin Dose 1 PATCH; Start 12/03/18 at 13:00 Docusate Sodium (Colace) 100 mg BID PRN PO CONSTIPATION; Start 12/05/18 at 19:00 Lorazepam (Ativan) 0.5 mg Q8H PRN IV AGITATION Last administered on 12/09/18at 21:53; Admin Dose 0.5 MG; Start 12/07/18 at 12:30 Metoprolol Tartrate (Lopressor) 50 mg BID PO Last administered on 12/09/18at 20:32; Admin Dose 50 MG; Start 12/07/18 at 21:00 SOLOMON BYRD Dec 10, 2018 08:03
[2018-12-10] MEDS: INSULIN GLARGINE [LANTus] (100 UNITS/ML) SYG SC SCH (08:15)
[2018-12-10] MEDS: METOPROLOL 50 MG TAB PO SCH ×2 (08:55→20:48)
--- NOTE | 2018-12-10 09:40 | PN ---
DATE: 12/10/2018 SUBJECTIVE: The patient remains confused, agitated. No other events noted. OBJECTIVE: VITAL SIGNS: Blood pressure is 135/65, pulse 99, respirations 20, temperature 98.0. HEENT: Head is normocephalic. NECK: Supple. HEART: Regular rate. LUNGS: Show diminished breath sounds at the base. ABDOMEN: Soft, nontender to palpation without rebound or guarding. EXTREMITIES: Negative for clubbing, cyanosis, no edema. DERMATOLOGIC: No rashes. MUSCULOSKELETAL: No joint effusion. NEUROLOGIC: No change in exam. MEDICATIONS: Reviewed. LABORATORY DATA: Has been reviewed. ASSESSMENT AND PLAN: 1. Oligoanuric acute kidney injury on top of chronic kidney disease stage IV, now likely end-stage r enal disease. The patient is on intermittent hemodialysis. We will continue. 2. Anemia. Continue to monitor hemoglobin and hematocrit levels. Continue Epogen. 3. Mineral bone disorder, monitor calcium and phosphorus levels. 4. Encephalopathy, etiology is toxic metabolic. Continue to monitor. 5. Coronary artery disease. Continue medical management. 6. Diabetes. Continue current insulin regimen. 7. Hypothyroidism. Continue Synthroid. 8. History of atrial fibrillation. 9. Thrombocytopenia. Continue to monitor. 10. Hypertension, improved. Continue current blood pressure regimen. Continue ultrafiltration with dialysis. 11. Tachyarrhythmia. Continue current medical management. Dictated By: SUSY ABARCA/NTS Conf#: [id number] DID#: [id number] CC: NEREIDA MCQUEEN MD;*EndCC*
--- NOTE | 2018-12-10 11:54 | CONS ---
Assessment/Plan Assessment/Plan Hospital Course (Demo Recall) IMPRESSION: 1. Hypotension-overall improved and not on pressors currently and now HTN requiring medications 2. Atrial fibrillation, primarily rate controlled off of antihypertensives at this time. 3. Anemia, worsening with guaiac positive stool consistent with gastrointestinal bleed. 4. Diabetes mellitus. 5. Acute on chronic renal failure,now on hemodialysis. 6. Altered mental state. 7. Diastolic congestive heart failure due to a preserved EF by most recent echo and findings by chest x-ray. 8. History of coronary artery disease, nonobstructive by outside hospital catheterization. 9. Shortness of breath with hypothyroidism. 10. Diabetes mellitus. 11.UTI Recc: -Continue BB/clonidine TTS and follow-up BP closely -Dose digoxin IVP to assure good HR control -HD for volume removal -Follow HR/rhythm closely -not on anticoagulation secondary to GIB/anemia requiring transfusion -to undergo endoscopy? Consultation Date/Type/Reason Admit Date/Time Nov 25, 2018 at 13:18 Initial Consult Date 11/26/18 Type of Consult Cardiology Reason for Consultation AF Requesting Provider: GENNY SULLIVAN Date/Time of Note DATE: 12/10/18 TIME: 11:51 Exam/Review of Systems Vital Signs Vitals Vital Signs Date Temp Pulse Resp B/P (MAP) Pulse Ox O2 O2 Flow FiO2 Time Delivery Rate 12/10/18 98.9 120 20 144/74 90 11:31 (97) 12/10/18 Nasal 3.0 08:30 Cannula 12/07/18 21 09:51 Intake and Output 12/09/18 12/09/18 12/10/18 1515:00 23:00 07:00 IntakeIntake Total 480 ml OutputOutput Total 25 ml BalanceBalance 455 ml Exam Exam Review of Systems: CONSTITUTIONAL: No fevers, chills. PULMONARY: No sob CARDIOVASCULAR: No chest pain/palpitations GASTROINTESTINAL: No nausea/vomiting. GENITOURINARY: No hematuria/dysuria. MUSCULOSKELETAL: No myagias/arthalgias. PSYCHIATRIC: The patient denies depression. NEUROLOGIC: confused Constitutional: alert Psych: no complaints Head: normocephalic ENMT: mucosa pink and moist Neck: supple, jvd (9 cm water) Respiratory: diminished breath sounds Cardiovascular: irregular rhythm (tachycardic) Gastrointestinal: soft, non-tender Musculoskeletal: muscle weakness (generalized) Extremities: edema (trace/B) Neurological: other (No focal deficits) Labs Result Diagram: 12/07/18 1709 12/07/18 1709 Results 24hrs Laboratory Tests Test 12/09/18 12:43 12/09/18 17:25 12/09/18 20:28 12/10/18 00:35 Bedside Glucose 162 132 145 154 Test 12/10/18 05:19 12/10/18 07:42 12/10/18 09:10 Bedside Glucose 156 125 118 Medications Medications Current Medications Hydralazine HCl (Apresoline) 10 mg Q6H PRN IV SBP >160 Last administered on 12/04/18 13:26; Admin Dose 10 MG; Start 11/25/18 at 14:00 Ondansetron HCl (Zofran Inj) 4 mg Q4H PRN IV NAUSEA AND/OR VOMITING Last administered on 11/29/18 01:10; Admin Dose 4 MG; Start 11/25/18 at 14:00 Insulin Glargine (Lantus) 10 units DAILY@0800 SC Last administered on 12/10/18at 08:15; Admin Dose 10 UNITS; Start 11/26/18 at 08:00 Insulin Aspart (Novolog Insulin Pen) NOVOLOG *MILD* ALGORI... Q4 SC Last administered on 12/10/18 05:25; Admin Dose 1 UNIT; Start 11/25/18 at 17:00 Albuterol/ Ipratropium (Duoneb) 3 ml Q6H RESP THERAPY PRN HHN SHORTNESS OF BREATH Last administered on 11/26/18at 20:17; Admin Dose 3 ML; Start 11/25/18 at 14:00 Acetaminophen (Tylenol Supp) 650 mg Q4H PRN [place] MILD PAIN(1-3) OR TEMP>38C Last administered on 12/02/18 09:25; Admin Dose 650 MG; Start 11/25/18 at 14:00 Miscellaneous Information 1 ea NOTE XX ; Start 11/25/18 at 14:30 Glucose (Glutose) 15 gm Q15M PRN PO DECREASED GLUCOSE; Start 11/25/18 at 14:30 Glucose (Glutose) 22.5 gm Q15M PRN PO DECREASED GLUCOSE; Start 11/25/18 at 14:30 Dextrose (D50w Syringe) 25 ml Q15M PRN IV DECREASED GLUCOSE; Start 11/25/18 at 14:30 Dextrose (D50w Syringe) 50 ml Q15M PRN IV DECREASED GLUCOSE; Start 11/25/18 at 14:30 Glucagon (Glucagen) 1 mg Q15M PRN IM DECREASED GLUCOSE; Start 11/25/18 at 14:30 Glucose (Glutose) 15 gm Q15M PRN BUCCAL DECREASED GLUCOSE; Start 11/25/18 at 14:30 Budesonide (Pulmicort (Neb)) 0.5 mg BID RESP THERAPY HHN Last administered on 12/09/18 20:25; Admin Dose 0.5 MG; Start 11/26/18 at 09:00 IV Flush (NS 10 ml) 10 ml PRN PRN IV IV PROTOCOL; Start 11/26/18 at 14:00 Metoprolol Tartrate (Lopressor) 5 mg Q4H PRN IV HR>110 Hold SBP<100 Last a dministered on 12/04/18 09:35; Admin Dose 5 MG; Start 11/26/18 at 18:00 Levothyroxine Sodium (Synthroid) 125 mcg DAILY@06 PO Last administered on 12/08/18 06:10; Admin Dose 125 MCG; Start 11/28/18 at 06:00 Albumin Human 100 ml @ 100 mls/hr DURING DIALYSIS PRN IV HYPOTENTION DURING HD Last administered on 12/03/18 10:51; Admin Dose 100 MLS/HR; Start 11/27/18 at 20:30 Acetaminophen (Tylenol Liquid) 650 mg Q4H PRN PO MILD PAIN(1-3)OR ELEVATED TEMP Last administered on 11/28/18 18:59; Admin Dose 650 MG; Start 11/28/18 at 16:00 Haloperidol (Haldol) 2 mg Q4 PRN IV AGITATION Last administered on 12/10/18 04:01; Admin Dose 2 MG; Start 11/29/18 at 12:00 Quetiapine Fumarate (Seroquel) 25 mg QHS PO Last administered on 12/09/18 20:31; Admin Dose 25 MG; Start 11/29/18 at 21:00 Pantoprazole (Protonix Tab) 40 mg DAILY@06 PO Last administered on 12/08/18 06:10; Admin Dose 40 MG; Start 11/30/18 at 06:00 Dextrose/Sodium Chloride 1,000 ml @ 40 mls/hr Q24H IV Last administered on 12/10/18 01:03; Admin Dose 40 MLS/HR; Start 11/30/18 at 12:30 Enalaprilat (Vasotec Iv) 1.25 mg Q2H PRN IV ELEVATED SYSTOLIC BP Last administered on 12/03/18 02:30; Admin Dose 1.25 MG; Start 12/03/18 at 00:30 Epoetin Kavon-epbx (RETACRIT(esrd)) 10,000 unit MoWeFr@1700 SC Last administered on 12/07/18 17:56; Admin Dose 10,000 UNIT; Start 12/03/18 at 17:00 Clonidine HCl (Catapres-Tts 2 Patch) 1 patch Q7D TRANSDERM Last administered on 12/03/18 14:25; Admin Dose 1 PATCH; Start 12/03/18 at 13:00 Docusate Sodium (Colace) 100 mg BID PRN PO CONSTIPATION; Start 12/05/18 at 19:00 Lorazepam (Ativan) 0.5 mg Q8H PRN IV AGITATION Last administered on 12/09/18at 21:53; Admin Dose 0.5 MG; Start 12/07/18 at 12:30 Metoprolol Tartrate (Lopressor) 50 mg BID PO Last administered on 12/09/18at 20:32; Admin Dose 50 MG; Start 12/07/18 at 21:00 CARMELO MAE Dec 10, 2018 11:54
[2018-12-10] MEDS ORDERED: DIGOXIN 500 MCG INJ IV ONE (12:00)
--- NOTE | 2018-12-10 12:14 | PN ---
Date/Time of Note Date/Time of Note DATE: 12/10/18 TIME: 12:13 Assessment/Plan VTE Prophylaxis Risk score (from [facility] [place])>0 risk: 6 SCD applied (from [facility] [place]): No SCD contraindicated: other Pharmacological prophylaxis: other Pharm contraindication: other Lines/Catheters IV Catheter Type (from [facility]): Permacath Urinary Cath still in place: Yes Reason Cath still needed: urinary retention Assessment/Plan Assessment/Plan 1. Oliguric acute kidney injury on top of chronic kidney disease stage IV with previous baseline creatinine around 2.0 mg/dL. Etiology of acute kidney injury was secondary to acute tubular necrosis due to hemodynamic sepsis. \ - HD per Nephrology -on case 2. Anemia, etiology is multifactorial secondary to chronic kidney disease, iron deficiency, questionable GI bleed. Patient is currently on IV iron on Epogen. - Continue to monitor CBC - Continue PPI. - per GI 3. Mineral bone disorder. Monitor calcium and phosphorus levels. 4. Encephalopathy. Etiology is toxic metabolic, possibly uremic. Continue to monitor. 5. Coronary artery disease. Continue medical management. 6. Diabetes. - Continue current insulin regimen. 7. Hypothyroidism. Continue Synthroid. 8. History of asthma. Continue current treatment plan. 9. History of atrial fibrillation. 10. Thrombocytopenia. Continue to monitor. 11. Hypertension. Blood pressure controlled. Plan of care discussed with Dr. Lind. Result Diagram: 12/07/18 1709 12/07/18 1709 Results 24hrs Laboratory Tests Test 12/09/18 12:43 12/09/18 17:25 12/09/18 20:28 12/10/18 00:35 Bedside Glucose 162 132 145 154 Test 12/10/18 05:19 12/10/18 07:42 12/10/18 09:10 Bedside Glucose 156 125 118 Subjective 24 Hr Interval Summary Free Text/Dictation - nad - confused but stable - no s/s of aspiration reported;tolerates diet - no new events reported last night dw staff Constitutional: requiring O2 Respiratory: no complaints Cardiovascular: no complaints Gastrointestinal: no complaints Musculoskeletal: no complaints Exam/Review of Systems Exam Vitals Vital Signs Date Temp Pulse Resp B/P (MAP) Pulse Ox O2 O2 Flow FiO2 Time Delivery Rate 12/10/18 98.9 120 20 144/74 90 11:31 (97) 12/10/18 Nasal 3.0 08:30 Cannula 12/07/18 09:51 Intake and Output 12/09/18 12/09/18 12/10/18 1515:00 23:00 07:00 IntakeIntake Total 480 ml OutputOutput Total 25 ml BalanceBalance 455 ml Constitutional: alert, well developed Psych: nl mood/affect Head: atraumatic Eyes: nl lids, nl sclera ENMT: nl external ears & nose Neck: non-tender Respiratory: clear to auscultation Cardiovascular: nl pulses, other Gastrointestinal: soft, non-tender Musculoskeletal: nl extremities to inspection Extremities: normal pulses Neurological: nl speech, confused Lymph: nontender Results Results 24hrs Laboratory Tests Test 12/09/18 12:43 12/09/18 17:25 12/09/18 20:28 12/10/18 00:35 Bedside Glucose 162 132 145 154 Test 12/10/18 05:19 12/10/18 07:42 12/10/18 09:10 Bedside Glucose 156 125 118 Medications Medication Current Medications Hydralazine HCl (Apresoline) 10 mg Q6H PRN IV SBP >160 Last administered on 12/04/18 13:26; Admin Dose 10 MG; Start 11/25/18 at 14:00 Ondansetron HCl (Zofran Inj) 4 mg Q4H PRN IV NAUSEA AND/OR VOMITING Last administered on 11/29/18 01:10; Admin Dose 4 MG; Start 11/25/18 at 14:00 Insulin Glargine (Lantus) 10 units DAILY@0800 SC Last administered on 12/10/18 08:15; Admin Dose 10 UNITS; Start 11/26/18 at 08:00 Insulin Aspart (Novolog Insulin Pen) NOVOLOG *MILD* ALGORI... Q4 SC Last administered on 12/10/18 05:25; Admin Dose 1 UNIT; Start 11/25/18 at 17:00 Albuterol/ Ipratropium (Duoneb) 3 ml Q6H RESP THERAPY PRN HHN SHORTNESS OF BREATH Last administered on 11/26/18 20:17; Admin Dose 3 ML; Start 11/25/18 at 14:00 Acetaminophen (Tylenol Supp) 650 mg Q4H PRN GA MILD PAIN(1-3) OR TEMP>38C Last administered on 12/02/18 09:25; Admin Dose 650 MG; Start 11/25/18 at 14:00 Miscellaneous Information 1 ea NOTE XX ; Start 11/25/18 at 14:30 Glucose (Glutose) 15 gm Q15M PRN PO DECREASED GLUCOSE; Start 11/25/18 at 14:30 Glucose (Glutose) 22.5 gm Q15M PRN PO DECREASED GLUCOSE; Start 11/25/18 at 14:30 Dextrose (D50w Syringe) 25 ml Q15M PRN IV DECREASED GLUCOSE; Start 11/25/18 at 14:30 Dextrose (D50w Syringe) 50 ml Q15M PRN IV DECREASED GLUCOSE; Start 11/25/18 at 14:30 Glucagon (Glucagen) 1 mg Q15M PRN IM DECREASED GLUCOSE; Start 11/25/18 at 14:30 Glucose (Glutose) 15 gm Q15M PRN BUCCAL DECREASED GLUCOSE; Start 11/25/18 at 14:30 Budesonide (Pulmicort (Neb)) 0.5 mg BID RESP THERAPY HHN Last administered on 12/09/18 20:25; Admin Dose 0.5 MG; Start 11/26/18 at 09:00 IV Flush (NS 10 ml) 10 ml PRN PRN IV IV PROTOCOL; Start 11/26/18 at 14:00 Metoprolol Tartrate (Lopressor) 5 mg Q4H PRN IV HR>110 Hold SBP<100 Last administered on 12/04/18 09:35; Admin Dose 5 MG; Start 11/26/18 at 18:00 Levothyroxine Sodium (Synthroid) 125 mcg DAILY@06 PO Last administered on 12/08/18 06:10; Admin Dose 125 MCG; Start 11/28/18 at 06:00 Albumin Human 100 ml @ 100 mls/hr DURING DIALYSIS PRN IV HYPOTENTION DURING HD Last administered on 12/03/18 10:51; Admin Dose 100 MLS/HR; Start 11/27/18 at 20:30 Acetaminophen (Tylenol Liquid) 650 mg Q4H PRN PO MILD PAIN(1-3)OR ELEVATED TEMP Last administered on 11/28/18 18:59; Admin Dose 650 MG; Start 11/28/18 at 16:00 Haloperidol (Haldol) 2 mg Q4 PRN IV AGITATION Last administered on 12/10/18 04:01; Admin Dose 2 MG; Start 11/29/18 at 12:00 Quetiapine Fumarate (Seroquel) 25 mg QHS PO Last administered on 12/09/18 20:31; Admin Dose 25 MG; Start 11/29/18 at 21:00 Pantoprazole (Protonix Tab) 40 mg DAILY@06 PO Last administered on 12/08/18 06:10; Admin Dose 40 MG; Start 11/30/18 at 06:00 Dextrose/Sodium Chloride 1,000 ml @ 40 mls/hr Q24H IV Last administered on 12/10/18 01:03; Admin Dose 40 MLS/HR; Start 11/30/18 at 12:30 Enalaprilat (Vasotec Iv) 1.25 mg Q2H PRN IV ELEVATED SYSTOLIC BP Last administered on 12/03/18 02:30; Admin Dose 1.25 MG; Start 12/03/18 at 00:30 Epoetin Kavon-epbx (RETACRIT(esrd)) 10,000 unit MoWeFr@1700 SC Last administered on 12/07/18 17:56; Admin Dose 10,000 UNIT; Start 12/03/18 at 17:00 Clonidine HCl (Catapres-Tts 2 Patch) 1 patch Q7D TRANSDERM Last administered on 12/03/18 14:25; Admin Dose 1 PATCH; Start 12/03/18 at 13:00 Docusate Sodium (Colace) 100 mg BID PRN PO CONSTIPATION; Start 12/05/18 at 19:00 Lorazepam (Ativan) 0.5 mg Q8H PRN IV AGITATION Last administered on 12/09/18 21:53; Admin Dose 0.5 MG; Start 12/07/18 at 12:30 Metoprolol Tartrate (Lopressor) 50 mg BID PO Last administered on 12/09/18 20:32; Admin Dose 50 MG; Start 12/07/18 at 21:00 JODI HANSON Dec 10, 2018 12:14
--- NOTE | 2018-12-10 12:16 | CONS ---
Assessment/Plan Assessment/Plan Hospital Course 78 yo F with hx of ESRD on HD and other comorbidities who presents with ams in contest of respiratory sx. She was noted to be acutely encephalopathic following HD on 11/28, for which neurology is consulted. The clinical picture suggests an acute on chronic encephalopathy A focal BRAKE DRUM MOLDER process is unlikely. MRI brain was technically limited, but was otherwise without obvious acute intracranial pathology. HCT on 11/25 was the same. EEG was without obvious epileptiform activity.. ammonia wnl, TSH nl, B12 ok P: Ok to defer additional neuroimaging for now. [place] as necessary Consider seroquel hs and prn Cont to limit other sedating medications where possible Cont medical management per primary Will follow Consultation Date/Type/Reason Admit Date/Time Nov 25, 2018 at 13:18 Type of Consult Neurology Reason for Consultation ams Requesting Provider: GENNY SULLIVAN Date/Time of Note DATE: 12/10/18 TIME: 12:16 24 HR Interval Summary Free Text/Dictation Continues acute care. No changes in pt condition. Exam Vital Signs Vitals Vital Signs Date Temp Pulse Resp B/P (MAP) Pulse Ox O2 O2 Flow FiO2 Time Delivery Rate 12/10/18 98.9 120 20 144/74 90 11:31 (97) 12/10/18 Nasal 3.0 08:30 Cannula 12/07/18 21 09:51 Intake and Output 12/09/18 12/09/18 12/10/18 1414:59 22:59 06:59 IntakeIntake Total 480 ml OutputOutput Total 25 ml BalanceBalance 455 ml Exam PE: Gen Appearance: Calm, NAD HEENT: Normocephalic Cardiovascular: Regular rate Abdomen: Soft Extremities: Dry NE: The patient was asleep though easily arousable to voice.. Oriented to self and hospital. Fund of knowledge was limited. Cranial nerve examination was limited by mental status. Pupils were equal and reactive to light. There was no afferent pupillary defect. Funduscopic examination was limited. Face was grossly symmetric, w/ present corneal and cough reflexes. Tone was normal. Muscle bulk was normal. I did not see fasciculations. The patient had symmetric movement of her extremities. Coordination and gait testing was limited by mental status. Arm and leg reflexes were within normal limits and symmetric. Lai's sign was absent. Plantar responses were flexor. NICHO HENDRIX NP Dec 10, 2018 12:16
[2018-12-10] MEDS: CLONIDINE 0.2 MG/24 HR PATCH TRANSDERM SCH (13:14)
[2018-12-10] MEDS: BUDESONIDE (NEB) 0.5MG/2ML AMP HHN SCH ×2 (13:37→22:09)
[2018-12-10] MEDS: EPOETIN ALFA-EPBX (ESRD) 10,000 UNIT/ML VIAL SC SCH (17:35)
[2018-12-10] MEDS: hydrALAzine 20 MG INJ IV PRN (20:51)
[2018-12-10] MEDS: QUETIAPINE 25 MG TAB PO SCH (20:52)
[2018-12-11] VITALS (9 sets, daily range): BP systolic 144–185; BP diastolic 72–114; PULSE 77–118; RESP 20
[2018-12-11] MEDS: INSULIN ASPART [NOVOLOG] 3 ML PEN SC SCH ×5 (01:00→17:00)
[2018-12-11] MEDS: LORAZEPAM 2 MG INJ IV PRN (01:00)
[2018-12-11] MEDS: hydrALAzine 20 MG INJ IV PRN (03:42)
[2018-12-11] MEDS: PANTOPRAZOLE (EC) 40 MG TAB PO SCH (06:49)
[2018-12-11] MEDS: LEVOTHYROXINE 125 MCG TAB PO SCH (06:49)
--- NOTE | 2018-12-11 08:29 | CONS ---
Assessment/Plan Assessment/Plan Hospital Course (Demo Recall) 78-year-old female with a history of hypertension, CHF, chronic kidney disease, diabetes mellitus, pulmonary embolism, status post surgery, atrial fibrillation admitted originally to [facility] for respiratory failure, transferred to [place]. At [place] pt was found to be hypotensive and transferred to [facility]. We were consulted for anemia and positive guaiac stool Interval hx: No signs of GI bleeding. No acute changes . Labs have not been drawn since 12/07. RN denies any evidence of GI bleeding. She is now on pureed diet with poor appetite. 1. Anemia due to the chronic gastrointestinal blood loss and also chronic disease. -Capsule endoscopy and EGD reports from [facility] are unremarkable. 2. Diabetes mellitus. 3. Thrombocytopenia. 4. Bronchial asthma. 5. Atrial fibrillation. 6. Acute on chronic renal failure 7. Mildly elevated CEA at 6.6 Plan Aspiration precautions Follow dietary recs Consider Iron supplementation Spoke with daughter Janee over phone who states family does not want a colonoscopy or another EGD. Pt needs colonoscopy since CEA elevated and positive FOB and family hx of colon cancer Monitor HH and for active GI bleeding Pt examined and plan of care discussed with Dr. Schaffer Consultation Date/Type/Reason Admit Date/Time Nov 25, 2018 at 13:18 Initial Consult Date 11/26/18 Requesting Provider: GENNY SULLIVAN Date/Time of Note DATE: 12/11/18 TIME: 08:26 Exam/Review of Systems Exam Vitals Vital Signs Date Temp Pulse Resp B/P (MAP) Pulse Ox O2 O2 Flow FiO2 Time Delivery Rate 12/11/18 Nasal 3.0 07:39 Cannula 12/11/18 98.3 115 20 144/114 99 07:09 (124) 12/11/18 32 01:34 Intake and Output 12/10/18 12/10/18 12/11/18 1515:00 23:00 07:00 IntakeIntake Total 500 ml OutputOutput Total 2400 ml 50 ml BalanceBalance -2400 ml 450 ml Constitutional: alert Eyes: PERRL Respiratory: normal air movement Cardiovascular: regular rate and rhythm Gastrointestinal: soft, non-tender, bowel sounds Extremities: normal pulses Results Result Diagram: 12/07/18 1709 12/07/18 1709 Results 24hrs Laboratory Tests Test 12/10/18 09:10 12/10/18 13:12 12/10/18 16:17 12/10/18 22:45 Bedside Glucose 118 161 180 173 Test 12/11/18 01:14 12/11/18 05:11 Bedside Glucose 171 157 Medications Medication Current Medications Hydralazine HCl (Apresoline) 10 mg Q6H PRN IV SBP >160 Last administered on 12/11/18at 03:42; Admin Dose 10 MG; Start 11/25/18 at 14:00 Ondansetron HCl (Zofran Inj) 4 mg Q4H PRN IV NAUSEA AND/OR VOMITING Last administered on 11/29/18at 01:10; Admin Dose 4 MG; Start 11/25/18 at 14:00 Insulin Glargine (Lantus) 10 units DAILY@0800 SC Last administered on 12/10/18 08:15; Admin Dose 10 UNITS; Start 11/26/18 at 08:00 Insulin Aspart (Novolog Insulin Pen) NOVOLOG *MILD* ALGORI... Q4 SC Last administered on 12/10/18at 16:44; Admin Dose 1 UNIT; Start 11/25/18 at 17:00 Albuterol/ Ipratropium (Duoneb) 3 ml Q6H RESP THERAPY PRN HHN SHORTNESS OF BREATH Last administered on 11/26/18at 20:17; Admin Dose 3 ML; Start 11/25/18 at 14:00 Acetaminophen (Tylenol Supp) 650 mg Q4H PRN [place] MILD PAIN(1-3) OR TEMP>38C Last administered on 12/02/18at 09:25; Admin Dose 650 MG; Start 11/25/18 at 14:00 Miscellaneous Information 1 ea NOTE XX ; Start 11/25/18 at 14:30 Glucose (Glutose) 15 gm Q15M PRN PO DECREASED GLUCOSE; Start 11/25/18 at 14:30 Glucose (Glutose) 22.5 gm Q15M PRN PO DECREASED GLUCOSE; Start 11/25/18 at 14:30 Dextrose (D50w Syringe) 25 ml Q15M PRN IV DECREASED GLUCOSE; Start 11/25/18 at 14:30 Dextrose (D50w Syringe) 50 ml Q15M PRN IV DECREASED GLUCOSE; Start 11/25/18 at 14:30 Glucagon (Glucagen) 1 mg Q15M PRN IM DECREASED GLUCOSE; Start 11/25/18 at 14:30 Glucose (Glutose) 15 gm Q15M PRN BUCCAL DECREASED GLUCOSE; Start 11/25/18 at 14:30 Budesonide (Pulmicort (Neb)) 0.5 mg BID RESP THERAPY HHN Last administered on 12/10/18 22:09; Admin Dose 0.5 MG; Start 11/26/18 at 09:00 IV Flush (NS 10 ml) 10 ml PRN PRN IV IV PROTOCOL; Start 11/26/18 at 14:00 Metoprolol Tartrate (Lopressor) 5 mg Q4H PRN IV HR>110 Hold SBP<100 Last a dministered on 12/04/18 09:35; Admin Dose 5 MG; Start 11/26/18 at 18:00 Levothyroxine Sodium (Synthroid) 125 mcg DAILY@06 PO Last administered on 12/11/18 06:49; Admin Dose 125 MCG; Start 11/28/18 at 06:00 Albumin Human 100 ml @ 100 mls/hr DURING DIALYSIS PRN IV HYPOTENTION DURING HD Last administered on 12/03/18 10:51; Admin Dose 100 MLS/HR; Start 11/27/18 at 20:30 Acetaminophen (Tylenol Liquid) 650 mg Q4H PRN PO MILD PAIN(1-3)OR ELEVATED TEMP Last administered on 11/28/18 18:59; Admin Dose 650 MG; Start 11/28/18 at 16:00 Haloperidol (Haldol) 2 mg Q4 PRN IV AGITATION Last administered on 12/10/18 04:01; Admin Dose 2 MG; Start 11/29/18 at 12:00 Quetiapine Fumarate (Seroquel) 25 mg QHS PO Last administered on 12/10/18 20:52; Admin Dose 25 MG; Start 11/29/18 at 21:00 Pantoprazole (Protonix Tab) 40 mg DAILY@06 PO Last administered on 12/11/18 06:49; Admin Dose 40 MG; Start 11/30/18 at 06:00 Dextrose/Sodium Chloride 1,000 ml @ 40 mls/hr Q24H IV Last administered on 12/10/18 01:03; Admin Dose 40 MLS/HR; Start 11/30/18 at 12:30 Enalaprilat (Vasotec Iv) 1.25 mg Q2H PRN IV ELEVATED SYSTOLIC BP Last administered on 12/03/18 02:30; Admin Dose 1.25 MG; Start 12/03/18 at 00:30 Epoetin Kavon-epbx (RETACRIT(esrd)) 10,000 unit MoWeFr@1700 SC Last administered on 12/10/18 17:35; Admin Dose 10,000 UNIT; Start 12/03/18 at 17:00 Clonidine HCl (Catapres-Tts 2 Patch) 1 patch Q7D TRANSDERM Last administered on 12/10/18 13:14; Admin Dose 1 PATCH; Start 12/03/18 at 13:00 Docusate Sodium (Colace) 100 mg BID PRN PO CONSTIPATION; Start 12/05/18 at 19:00 Lorazepam (Ativan) 0.5 mg Q8H PRN IV AGITATION Last administered on 12/11/18 01:00; Admin Dose 0.5 MG; Start 12/07/18 at 12:30 Metoprolol Tartrate (Lopressor) 50 mg BID PO Last administered on 12/10/18 20:48; Admin Dose 50 MG; Start 12/07/18 at 21:00 Hydralazine HCl (Apresoline) 25 mg Q6H PRN PO high blood pressure Last administered on 12/10/18 22:41; Admin Dose 25 MG; Start 12/10/18 at 22:30 SOLOMON BYRD Dec 11, 2018 08:29
[2018-12-11] MEDS: BUDESONIDE (NEB) 0.5MG/2ML AMP HHN SCH ×2 (08:57→23:06)
[2018-12-11] MEDS: POLYETHYLENE GLYCOL 17 GM PACKET PO SCH (09:03)
[2018-12-11] MEDS: METOPROLOL 50 MG TAB PO SCH ×2 (09:03→22:31)
[2018-12-11] MEDS: INSULIN GLARGINE [LANTus] (100 UNITS/ML) SYG SC SCH (09:08)
--- NOTE | 2018-12-11 09:12 | PN ---
DATE: 12/11/2018 SUBJECTIVE: The patient is stable, no events overnight. OBJECTIVE: VITAL SIGNS: Blood pressure is 144/114, pulse 115, respirations 20, temperature 98.3. HEENT: Head is normocephalic. NECK: Supple. HEART: Regular rate. LUNGS: Show diminished breath sounds at the base. ABDOMEN: Soft, nontender to palpation. No rebound or guarding. EXTREMITIES: Negative for clubbing, cyanosis, no edema. DERMATOLOGIC: No rashes. MUSCULOSKELETAL: No joint effusion. NEUROLOGIC: No change in exam. MEDICATIONS: Reviewed. LABORATORY DATA: Reviewed. ASSESSMENT AND PLAN: 1. Oliguric acute kidney injury on top of chronic kidney disease stage IV, now likely end-stage yamilka l disease. Continue intermittent hemodialysis. No signs of renal recovery. 2. Anemia. Continue to monitor hemoglobin and hematocrit levels. Continue Epogen. 3. Mineral bone disorder. Monitor calcium and phosphorus levels. 4. Encephalopathy, etiology is toxic metabolic. Continue to monitor. 5. Coronary artery disease. Continue medical management. 6. Diabetes. Continue current insulin regimen. 7. Hypothyroidism. Continue Synthroid. 8. History of atrial fibrillation. 9. Thrombocytopenia. Continue to monitor. 10. Hypertension. Continue current blood pressure regimen. Continue ultrafiltration with dialysis. 11. Tachyarrhythmia. Continue current treatment plan. Dictated By: SUSY CISNEROS DO NR/NTS Conf#: [id number] DID#: [id number] CC: EVA LOPEZ MD; NEREIDA MCQUEEN MD;*EndCC*
--- NOTE | 2018-12-11 12:11 | CONS ---
Assessment/Plan Assessment/Plan Hospital Course 78 yo F with hx of ESRD on HD and other comorbidities who presents with ams in contest of respiratory sx. She was noted to be acutely encephalopathic following HD on 11/28, for which neurology is consulted. The clinical picture suggests an acute on chronic encephalopathy A focal LOAD TESTER process is unlikely. MRI brain was technically limited, but was otherwise without obvious acute intracranial pathology. HCT on 11/25 was the same. EEG was without obvious epileptiform activity.. UA++ ammonia wnl, TSH nl, B12 ok P: [place] as able Continue seroquel hs; add 12.5mg q6hr prn Limit other sedating medications where possible Cont medical management and supportive care per primary Will follow clinically Consultation Date/Type/Reason Admit Date/Time Nov 25, 2018 at 13:18 Type of Consult Neurology Reason for Consultation ams Requesting Provider: GENNY SULLIVAN Date/Time of Note DATE: 12/11/18 TIME: 12:10 24 HR Interval Summary Free Text/Dictation Continues acute care. Pt reportedly agitated, trying to climb out of bed and pull out IVs. Ativan given overnight. Exam Vital Signs Vitals Vital Signs Date Temp Pulse Resp B/P (MAP) Pulse Ox O2 O2 Flow FiO2 Time Delivery Rate 12/11/18 98.0 86 20 160/72 97 11:26 (101) 12/11/18 Nasal 3.0 07:39 Cannula 12/11/18 32 01:34 Intake and Output 12/10/18 12/10/18 12/11/18 1515:00 23:00 07:00 IntakeIntake Total 500 ml OutputOutput Total 2400 ml 50 ml BalanceBalance -2400 ml 450 ml Exam PE: Gen Appearance: Calm, NAD HEENT: Normocephalic Cardiovascular: Regular rate Abdomen: Soft Extremities: Dry NE: The patient was asleep though easily arousable to voice. Sparsely verbal. Oriented to self only. Fund of knowledge was limited. Cranial nerve examination was limited by mental status. Pupils were equal and reactive to light. There was no afferent pupillary defect. Funduscopic examination was limited. Face was grossly symmetric, w/ present corneal and cough reflexes. Tone was normal. Muscle bulk was normal. I did not see fasciculations. The patient had symmetric movement of her extremities. Coordination and gait testing was limited by mental status. Arm and leg reflexes were within normal limits and symmetric. Lai's sign was absent. Plantar responses were flexor. NICHO HENDRIX NP Dec 11, 2018 12:11 SHERIF MURDOCK Dec 11, 2018 19:19
--- NOTE | 2018-12-11 13:47 | CONS ---
Consult Date/Type/Reason Admit Date/Time Nov 25, 2018 at 13:18 Initial Consult Date 11/26/18 Type of Consultation: Pulm Requesting Provider: GENNY SULLIVAN Date/Time of Note DATE: 12/11/18 TIME: 13:45 Subjective NO acute events - pt appears more comfortable - improved fluid status - no focal ectopy on tele. ROS: No fever, no chills, no nausea, no vomiting, no diarrhea/constipation - per nurse Objective Vitals Vital Signs Date Temp Pulse Resp B/P (MAP) Pulse Ox O2 O2 Flow FiO2 Time Delivery Rate 12/11/18 98.0 86 20 160/72 97 11:26 (101) 12/11/18 Nasal 3.0 07:39 Cannula 12/11/18 32 01:34 Intake and Output 12/10/18 12/10/18 12/11/18 1515:00 23:00 07:00 IntakeIntake Total 500 ml OutputOutput Total 2400 ml 50 ml BalanceBalance -2400 ml 450 ml Exam General: WN/WD/NAD, AOx 1-2 Confused HEENT: Unicetric/atraumatic/EOMI (does not follow commands) NECK: JVD elevated, no thyromegaly Lymph: no lymphadenopathy HEART: regular with no S3, II/ systolic murmur at apex, PMI L LUNGS: Coarse sounds ABD: soft, NT, ND, +BS : Intact Neuro: non focal SKIN: chronic changes EXT: trace edema Results/Medications Result Diagram: 12/11/18 1258 12/11/18 1258 Results 24 hrs Laboratory Tests Test 12/10/18 16:17 12/10/18 22:45 12/11/18 01:14 12/11/18 05:11 Bedside Glucose 180 173 171 157 Test 12/11/18 09:00 12/11/18 12:31 12/11/18 12:58 Bedside Glucose 171 220 White Blood Count 5.0 # Red Blood Count 3.18 L Hemoglobin 9.4 L Hematocrit 30.3 L Mean Corpuscular 95.3 Volume Mean Corpuscular 29.6 Hemoglobin Mean Corpuscular 31.0 L Hemoglobin Concent Red Cell 17.2 H Distribution Width Platelet Count 116 L Mean Platelet Volume 11.4 H Immature 0.200 Granulocytes % Neutrophils % 71.0 Lymphocytes % 9.4 L Monocytes % 18.0 H Eosinophils % 1.0 Basophils % 0.4 Nucleated Red Blood 0.0 Cells % Immature 0.010 Granulocytes # Neutrophils # 3.6 Lymphocytes # 0.5 L Monocytes # 0.9 Eosinophils # 0.1 Basophils # 0.0 Nucleated Red Blood 0.0 Cells # Sodium Level 137 Potassium Level 3.8 Chloride Level 99 Carbon Dioxide Level 25 Anion Gap 13 Blood Urea Nitrogen 14 Creatinine 4.20 H Est Glomerular Filtrat Rate mL/min Glucose Level 216 Calcium Level 8.8 Total Bilirubin 0.5 Direct Bilirubin 0.00 Indirect Bilirubin 0.5 Aspartate Amino 41 Transf (AST/SGOT) Alanine < 6 L Aminotransferase (AL T/SGPT) Alkaline Phosphatase 89 Total Protein 6.8 Albumin 4.0 Globulin 2.80 Albumin/Globulin 1.42 Ratio Home Meds Reported Medications Alprazolam* (Alprazolam*) 0.25 Mg Tablet, 0.25 MG PO NEEDED PRN for ANXIETY, TAB 11/26/18 Magnesium Oxide* (Mag-Oxide*) 400 Mg Tablet, 400 MG PO BID, TAB 11/26/18 Losartan Potassium* (Losartan Potassium*) 50 Mg Tablet, 50 MG PO BID PRN for NEEDED, TAB 11/26/18 Atorvastatin Calcium* (Atorvastatin Calcium*) 20 Mg Tablet, 20 MG PO QHS, #30 T AB 11/26/18 Potassium Chloride* (Potassium Chloride*) 8 Meq Capsule.er, 8 MEQ PO DAILY, CAP 11/26/18 Dronedarone Hydrochloride* (Multaq*) 400 Mg Tablet, 400 MG PO BID, TAB 11/26/18 Insulin Aspart (Novolog) 100 Unit/1 Ml Cartridge, 8 UNIT SQ AC BREAKFAST DINNER 11/26/18 Clopidogrel Bisulfate* (Clopidogrel Bisulfate*) 75 Mg Tablet, 75 MG PO DAILY, #30 TAB 11/26/18 Carvedilol* (Carvedilol*) 3.125 Mg Tablet, 3.125 MG PO BID, #60 TAB 11/26/18 Gabapentin* (Gabapentin*) 300 Mg Capsule, 300 MG PO DAILY, #60 CAP NEEDED 11/26/18 Aspirin* (Aspirin* EC) 81 Mg Tablet.dr, 81 MG PO DAILY, TAB 11/26/18 Amlodipine Besylate* (Amlodipine Besylate*) 10 Mg Tablet, 10 MG PO DAILY, #30 TAB TAKE NEEDED 11/26/18 Famotidine* (Famotidine*) 20 Mg Tablet, 20 MG PO BID, #30 TAB 11/26/18 Furosemide* (Furosemide*) 40 Mg Tablet, 40 MG PO BID, TAB 11/26/18 Levothyroxine Sodium* (Levothyroxine Sodium*) 125 Mcg Tablet, 125 MCG PO BEFORE BREAKFAST, #30 TAB 11/26/18 Bisacodyl (Ducodyl) 5 Mg Tablet.dr, 5 MG PO NEEDED 11/26/18 Ergocalciferol (Vitamin D2) (VITAMIN D2) 50,000 Unit Capsule, 64558 UNIT PO Q SAT, CAP 11/26/18 Lisinopril* (Lisinopril*) 5 Mg Tablet, 5 MG PO DAILY, #30 TAB TAKE NEEDED 11/26/18 Clonidine Hcl* (Clonidine Hcl*) 0.2 Mg Tablet, 0.2 MG PO BID PRN for HTN, TAB 11/26/18 Clonidine Patch (CLONIDINE PATCH) 0.2 Mg/24 Hr Patch, 1 PATCH.WK TD Q7D, #4 PATC H.WK 11/26/18 Hydralazine Hcl* (Apresoline*) 50 Mg Tab, 50 MG PO BID PRN for HTN, #60 TAB TAKE NEEDED 11/26/18 Insulin Glargine,Hum.rec.anlog (Basaglar Kwikpen U-100) 100 Unit/1 Ml Insuln.pen, 40 UNIT SC QHS, EA 11/26/18 Docusate Sodium* (Colace*) 250 Mg Capsule, 250 MG PO BID, #60 CAP 11/26/18 Ferrous Sulfate* (Ferrous Sulfate*) 325 Mg Tabec, 325 MG PO BID, TAB 11/26/18 Medications Current Medications Hydralazine HCl (Apresoline) 10 mg Q6H PRN IV SBP >160 Last administered on 12/11/18at 03:42; Admin Dose 10 MG; Start 11/25/18 at 14:00 Ondansetron HCl (Zofran Inj) 4 mg Q4H PRN IV NAUSEA AND/OR VOMITING Last administered on 11/29/18at 01:10; Admin Dose 4 MG; Start 11/25/18 at 14:00 Insulin Glargine (Lantus) 10 units DAILY@0800 SC Last administered on 12/11/18 09:08; Admin Dose 10 UNITS; Start 11/26/18 at 08:00 Insulin Aspart (Novolog Insulin Pen) NOVOLOG *MILD* ALGORI... Q4 SC Last administered on 12/11/18 09:08; Admin Dose 1 UNIT; Start 11/25/18 at 17:00 Albuterol/ Ipratropium (Duoneb) 3 ml Q6H RESP THERAPY PRN HHN SHORTNESS OF BREATH Last administered on 11/26/18at 20:17; Admin Dose 3 ML; Start 11/25/18 at 14:00 Acetaminophen (Tylenol Supp) 650 mg Q4H PRN [place] MILD PAIN(1-3) OR TEMP>38C Last administered on 12/02/18 09:25; Admin Dose 650 MG; Start 11/25/18 at 14:00 Miscellaneous Information 1 ea NOTE XX ; Start 11/25/18 at 14:30 Glucose (Glutose) 15 gm Q15M PRN PO DECREASED GLUCOSE; Start 11/25/18 at 14:30 Glucose (Glutose) 22.5 gm Q15M PRN PO DECREASED GLUCOSE; Start 11/25/18 at 14:30 Dextrose (D50w Syringe) 25 ml Q15M PRN IV DECREASED GLUCOSE; Start 11/25/18 at 14:30 Dextrose (D50w Syringe) 50 ml Q15M PRN IV DECREASED GLUCOSE; Start 11/25/18 at 14:30 Glucagon (Glucagen) 1 mg Q15M PRN IM DECREASED GLUCOSE; Start 11/25/18 at 14:30 Glucose (Glutose) 15 gm Q15M PRN BUCCAL DECREASED GLUCOSE; Start 11/25/18 at 14:30 Budesonide (Pulmicort (Neb)) 0.5 mg BID RESP THERAPY HHN Last administered on 12/11/18 08:57; Admin Dose 0.5 MG; Start 11/26/18 at 09:00 IV Flush (NS 10 ml) 10 ml PRN PRN IV IV PROTOCOL; Start 11/26/18 at 14:00 Metoprolol Tartrate (Lopressor) 5 mg Q4H PRN IV HR>110 Hold SBP<100 Last administered on 12/04/18 09:35; Admin Dose 5 MG; Start 11/26/18 at 18:00 Levothyroxine Sodium (Synthroid) 125 mcg DAILY@06 PO Last administered on 12/11/18 06:49; Admin Dose 125 MCG; Start 11/28/18 at 06:00 Albumin Human 100 ml @ 100 mls/hr DURING DIALYSIS PRN IV HYPOTENTION DURING HD Last administered on 12/03/18 10:51; Admin Dose 100 MLS/HR; Start 11/27/18 at 20:30 Acetaminophen (Tylenol Liquid) 650 mg Q4H PRN PO MILD PAIN(1-3)OR ELEVATED TEMP Last administered on 11/28/18 18:59; Admin Dose 650 MG; Start 11/28/18 at 16:00 Haloperidol (Haldol) 2 mg Q4 PRN IV AGITATION Last administered on 12/10/18 04:01; Admin Dose 2 MG; Start 11/29/18 at 12:00 Quetiapine Fumarate (Seroquel) 25 mg QHS PO Last administered on 12/10/18 20:52; Admin Dose 25 MG; Start 11/29/18 at 21:00 Pantoprazole (Protonix Tab) 40 mg DAILY@06 PO Last administered on 12/11/18 06:49; Admin Dose 40 MG; Start 11/30/18 at 06:00 Dextrose/Sodium Chloride 1,000 ml @ 40 mls/hr Q24H IV Last administered on 12/10/18 01:03; Admin Dose 40 MLS/HR; Start 11/30/18 at 12:30 Enalaprilat (Vasotec Iv) 1.25 mg Q2H PRN IV ELEVATED SYSTOLIC BP Last administered on 12/03/18 02:30; Admin Dose 1.25 MG; Start 12/03/18 at 00:30 Epoetin Kavon-epbx (RETACRIT(esrd)) 10,000 unit MoWeFr@1700 SC Last administered on 12/10/18 17:35; Admin Dose 10,000 UNIT; Start 12/03/18 at 17:00 Clonidine HCl (Catapres-Tts 2 Patch) 1 patch Q7D TRANSDERM Last administered on 12/10/18 13:14; Admin Dose 1 PATCH; Start 12/03/18 at 13:00 Docusate Sodium (Colace) 100 mg BID PRN PO CONSTIPATION; Start 12/05/18 at 19:00 Lorazepam (Ativan) 0.5 mg Q8H PRN IV AGITATION Last administered on 12/11/18 01:00; Admin Dose 0.5 MG; Start 12/07/18 at 12:30 Metoprolol Tartrate (Lopressor) 50 mg BID PO Last administered on 12/11/18 09:03; Admin Dose 50 MG; Start 12/07/18 at 21:00 Hydralazine HCl (Apresoline) 25 mg Q6H PRN PO high blood pressure Last administered on 12/10/18at 22:41; Admin Dose 25 MG; Start 12/10/18 at 22:30 Polyethylene Glycol (Miralax) 17 gm DAILY PO Last administered on 12/11/18 09:03; Admin Dose 17 GM; Start 12/11/18 at 09:00 Assessment/Plan Hospital Course (Demo Recall) 1. Hypotension, borderline, not on pressure support at this time - stable now - con't to follow - HD now, tolerated HD well - labile - luis Rx with renal team - labile - Rx with renal team. Better now. Improved. NOw BPon high side - resume rX post HD. 2. Atrial fibrillation, primarily rate controlled off of antihypertensives at this time - not anti-coag now r/o GIB and decreased H/H - stable now - rate controlled - stable now. . ASA/plavix for now. RATE CONTROLLED now. 3. Anemia, worsening with guaiac positive stool consistent with gastrointestinal bleed - GI follows. 4. Diabetes mellitus. 5. Acute on chronic renal failure, being initiated on hemodialysis - HD now. Tolerate well day prior. 6. Altered mental state- unchanged 7. Diastolic congestive heart failure due to a preserved EF by most recent echo - obverall improved CHF with CH - chronic now. 8. History of coronary artery disease, nonobstructive by outside hospital catheterization - no intervention planned now. 9. Shortness of breath with hypothyroidism. Improved. 10. Diabetes mellitus - on meds, keep euglycemic ALFRED PEPE MD Dec 11, 2018 13:47
[2018-12-11] MEDS ORDERED: QUETIAPINE 25 MG TAB PO PRN (16:00)
[2018-12-11] MEDS: DEXTROSE 5%-0.45% NACL 1,000 ML IV SCH (18:45)
[2018-12-11] MEDS: QUETIAPINE 25 MG TAB PO SCH (22:28)
--- NOTE | 2018-12-11 23:14 | PN ---
Date/Time of Note Date/Time of Note DATE: 12/11/18 TIME: 23:14 Assessment/Plan VTE Prophylaxis Risk score (from [facility] [place]0 risk: 5 SCD applied (from [facility] [place]): No SCD contraindicated: other Pharmacological prophylaxis: other Lines/Catheters IV Catheter Type (from [facility]): Mid Line Central line still needed: Yes Urinary Cath still in place: Yes Reason Cath still needed: urinary retention Assessment/Plan Assessment/Plan 1. Oliguric acute kidney injury on top of chronic kidney disease stage IV with previous baseline creatinine around 2.0 mg/dL. Etiology of acute kidney injury was secondary to acute tubular necrosis due to hemodynamic sepsis. \ - HD per Nephrology -on case 2. Anemia, etiology is multifactorial secondary to chronic kidney disease, iron deficiency, questionable GI bleed. Patient is currently on IV iron on Epogen. - Continue to monitor CBC - Continue PPI. - per GI 3. Mineral bone disorder. Monitor calcium and phosphorus levels. 4. Encephalopathy. Etiology is toxic metabolic, possibly uremic. Continue to monitor. 5. Coronary artery disease. Continue medical management. 6. Diabetes. - Continue current insulin regimen. 7. Hypothyroidism. Continue Synthroid. 8. History of asthma. Continue current treatment plan. 9. History of atrial fibrillation. 10. Thrombocytopenia. Continue to monitor. 11. Hypertension. Blood pressure controlled. Plan of care discussed with Dr. Lind. Result Diagram: 12/11/18 1258 12/11/18 1258 Results 24hrs Laboratory Tests Test 12/11/18 01:14 12/11/18 05:11 12/11/18 09:00 12/11/18 12:31 Bedside Glucose 171 157 171 220 Test 12/11/18 12:58 12/11/18 17:53 White Blood Count 5.0 # Red Blood Count 3.18 L Hemoglobin 9.4 L Hematocrit 30.3 L Mean Corpuscular 95.3 Volume Mean Corpuscular 29.6 Hemoglobin Mean Corpuscular 31.0 L Hemoglobin Concent Red Cell 17.2 H Distribution Width Platelet Count 116 L Mean Platelet Volume 11.4 H Immature 0.200 Granulocytes % Neutrophils % 71.0 Lymphocytes % 9.4 L Monocytes % 18.0 H Eosinophils % 1.0 Basophils % 0.4 Nucleated Red Blood 0.0 Cells % Immature 0.010 Granulocytes # Neutrophils # 3.6 Lymphocytes # 0.5 L Monocytes # 0.9 Eosinophils # 0.1 Basophils # 0.0 Nucleated Red Blood 0.0 Cells # Sodium Level 137 Potassium Level 3.8 Chloride Level 99 Carbon Dioxide Level 25 Anion Gap 13 Blood Urea Nitrogen 14 Creatinine 4.20 H Est Glomerular Filtrat Rate mL/min Glucose Level 216 Calcium Level 8.8 Total Bilirubin 0.5 Direct Bilirubin 0.00 Indirect Bilirubin 0.5 Aspartate Amino 41 Transf (AST/SGOT) Alanine < 6 L Aminotransferase (AL T/SGPT) Alkaline Phosphatase 89 Total Protein 6.8 Albumin 4.0 Globulin 2.80 Albumin/Globulin 1.42 Ratio Bedside Glucose 195 Subjective 24 Hr Interval Summary Free Text/Dictation - nad - confused but stable - no s/s of aspiration reported;tolerates diet - no new events reported last night dw staff Constitutional: requiring O2 Respiratory: no complaints Cardiovascular: no complaints Gastrointestinal: no complaints Exam/Review of Systems Exam Vitals Vital Signs Date Temp Pulse Resp B/P (MAP) Pulse Ox O2 O2 Flow FiO2 Time Delivery Rate 12/11/18 3.0 23:10 12/11/18 118 20:00 12/11/18 98.1 20 146/82 93 14:58 (103) 12/11/18 Nasal 07:39 Cannula 12/11/18 32 01:34 Intake and Output 12/10/18 12/10/18 12/11/18 1515:00 23:00 07:00 IntakeIntake Total 500 ml OutputOutput Total 2400 ml 50 ml BalanceBalance -2400 ml 450 ml Constitutional: alert, well developed Psych: nl mood/affect Head: normocephalic Eyes: nl lids, nl sclera ENMT: nl external ears & nose Neck: non-tender Respiratory: clear to auscultation Cardiovascular: nl pulses, other (s1s2) Gastrointestinal: soft, non-tender Musculoskeletal: nl extremities to inspection Extremities: normal pulses Neurological: nl speech Skin: other Lymph: nontender Results Results 24hrs Laboratory Tests Test 12/11/18 01:14 12/11/18 05:11 12/11/18 09:00 12/11/18 12:31 Bedside Glucose 171 157 171 220 Test 12/11/18 12:58 12/11/18 17:53 White Blood Count 5.0 # Red Blood Count 3.18 L Hemoglobin 9.4 L Hematocrit 30.3 L Mean Corpuscular 95.3 Volume Mean Corpuscular 29.6 Hemoglobin Mean Corpuscular 31.0 L Hemoglobin Concent Red Cell 17.2 H Distribution Width Platelet Count 116 L Mean Platelet Volume 11.4 H Immature 0.200 Granulocytes % Neutrophils % 71.0 Lymphocytes % 9.4 L Monocytes % 18.0 H Eosinophils % 1.0 Basophils % 0.4 Nucleated Red Blood 0.0 Cells % Immature 0.010 Granulocytes # Neutrophils # 3.6 Lymphocytes # 0.5 L Monocytes # 0.9 Eosinophils # 0.1 Basophils # 0.0 Nucleated Red Blood 0.0 Cells # Sodium Level 137 Potassium Level 3.8 Chloride Level 99 Carbon Dioxide Level 25 Anion Gap 13 Blood Urea Nitrogen 14 Creatinine 4.20 H Est Glomerular Filtrat Rate mL/min Glucose Level 216 Calcium Level 8.8 Total Bilirubin 0.5 Direct Bilirubin 0.00 Indirect Bilirubin 0.5 Aspartate Amino 41 Transf (AST/SGOT) Alanine < 6 L Aminotransferase (AL T/SGPT) Alkaline Phosphatase 89 Total Protein 6.8 Albumin 4.0 Globulin 2.80 Albumin/Globulin 1.42 Ratio Bedside Glucose 195 Medications Medication Current Medications Hydralazine HCl (Apresoline) 10 mg Q6H PRN IV SBP >160 Last administered on 12/11/18 03:42; Admin Dose 10 MG; Start 11/25/18 at 14:00 Ondansetron HCl (Zofran Inj) 4 mg Q4H PRN IV NAUSEA AND/OR VOMITING Last administered on 11/29/18 01:10; Admin Dose 4 MG; Start 11/25/18 at 14:00 Insulin Glargine (Lantus) 10 units DAILY@0800 SC Last administered on 12/11/18 09:08; Admin Dose 10 UNITS; Start 11/26/18 at 08:00 Insulin Aspart (Novolog Insulin Pen) NOVOLOG *MILD* ALGORI... Q4 SC Last admin istered on 12/11/18 17:00; Admin Dose 2 UNIT; Start 11/25/18 at 17:00 Albuterol/ Ipratropium (Duoneb) 3 ml Q6H RESP THERAPY PRN HHN SHORTNESS OF BREATH Last administered on 11/26/18 20:17; Admin Dose 3 ML; Start 11/25/18 at 14:00 Acetaminophen (Tylenol Supp) 650 mg Q4H PRN [place] MILD PAIN(1-3) OR TEMP>38C Last administered on 12/02/18 09:25; Admin Dose 650 MG; Start 11/25/18 at 14:00 Miscellaneous Information 1 ea NOTE XX ; Start 11/25/18 at 14:30 Glucose (Glutose) 15 gm Q15M PRN PO DECREASED GLUCOSE; Start 11/25/18 at 14:30 Glucose (Glutose) 22.5 gm Q15M PRN PO DECREASED GLUCOSE; Start 11/25/18 at 14:30 Dextrose (D50w Syringe) 25 ml Q15M PRN IV DECREASED GLUCOSE; Start 11/25/18 at 14:30 Dextrose (D50w Syringe) 50 ml Q15M PRN IV DECREASED GLUCOSE; Start 11/25/18 at 14:30 Glucagon (Glucagen) 1 mg Q15M PRN IM DECREASED GLUCOSE; Start 11/25/18 at 14:30 Glucose (Glutose) 15 gm Q15M PRN BUCCAL DECREASED GLUCOSE; Start 11/25/18 at 14:30 Budesonide (Pulmicort (Neb)) 0.5 mg BID RESP THERAPY HHN Last administered on 12/11/18at 23:06; Admin Dose 0.5 MG; Start 11/26/18 at 09:00 IV Flush (NS 10 ml) 10 ml PRN PRN IV IV PROTOCOL; Start 11/26/18 at 14:00 Metoprolol Tartrate (Lopressor) 5 mg Q4H PRN IV HR>110 Hold SBP<100 Last administered on 12/04/18at 09:35; Admin Dose 5 MG; Start 11/26/18 at 18:00 Levothyroxine Sodium (Synthroid) 125 mcg DAILY@06 PO Last administered on 12/11/18 06:49; Admin Dose 125 MCG; Start 11/28/18 at 06:00 Albumin Human 100 ml @ 100 mls/hr DURING DIALYSIS PRN IV HYPOTENTION DURING HD Last administered on 12/03/18at 10:51; Admin Dose 100 MLS/HR; Start 11/27/18 at 20:30 Acetaminophen (Tylenol Liquid) 650 mg Q4H PRN PO MILD PAIN(1-3)OR ELEVATED TEMP Last administered on 11/28/18at 18:59; Admin Dose 650 MG; Start 11/28/18 at 16:00 Quetiapine Fumarate (Seroquel) 25 mg QHS PO Last administered on 12/11/18 22:28; Admin Dose 25 MG; Start 11/29/18 at 21:00 Pantoprazole (Protonix Tab) 40 mg DAILY@06 PO Last administered on 12/11/18 06:49; Admin Dose 40 MG; Start 11/30/18 at 06:00 Dextrose/Sodium Chloride 1,000 ml @ 40 mls/hr Q24H IV Last administered on 12/11/18 18:45; Admin Dose 40 MLS/HR; Start 11/30/18 at 12:30 Enalaprilat (Vasotec Iv) 1.25 mg Q2H PRN IV ELEVATED SYSTOLIC BP Last administered on 12/03/18 02:30; Admin Dose 1.25 MG; Start 12/03/18 at 00:30 Epoetin Kavon-epbx (RETACRIT(esrd)) 10,000 unit MoWeFr@1700 SC Last administered on 12/10/18 17:35; Admin Dose 10,000 UNIT; Start 12/03/18 at 17:00 Clonidine HCl (Catapres-Tts 2 Patch) 1 patch Q7D TRANSDERM Last administered on 12/10/18 13:14; Admin Dose 1 PATCH; Start 12/03/18 at 13:00 Docusate Sodium (Colace) 100 mg BID PRN PO CONSTIPATION; Start 12/05/18 at 19:00 Metoprolol Tartrate (Lopressor) 50 mg BID PO Last administered on 12/11/18 22:31; Admin Dose 50 MG; Start 12/07/18 at 21:00 Hydralazine HCl (Apresoline) 25 mg Q6H PRN PO high blood pressure Last administered on 12/10/18 22:41; Admin Dose 25 MG; Start 12/10/18 at 22:30 Polyethylene Glycol (Miralax) 17 gm DAILY PO Last administered on 12/11/18 09:03; Admin Dose 17 GM; Start 12/11/18 at 09:00 Quetiapine Fumarate (Seroquel) 12.5 mg Q6H PRN PO agitation; Start 12/11/18 at 16:00 JODI HANSON Dec 11, 2018 23:14
[2018-12-12] VITALS (28 sets, daily range): BP systolic 144–188; BP diastolic 77–126; PULSE 76–172; RESP 18–24
[2018-12-12] MEDS: INSULIN ASPART [NOVOLOG] 3 ML PEN SC SCH ×7 (00:18→21:00)
--- NOTE | 2018-12-12 05:23 | PN ---
Date/Time of Note Date/Time of Note DATE: 12/12/18 TIME: 05:23 Assessment/Plan VTE Prophylaxis Risk score (from Ns)>0 risk: 4 SCD applied (from [facility] [place]): No Lines/Catheters Urinary Cath still in place: Yes Assessment/Plan Assessment/Plan 1. Oliguric acute kidney injury on top of chronic kidney disease stage IV with previous baseline creatinine around 2.0 mg/dL. Etiology of acute kidney injury was secondary to acute tubular necrosis due to hemodynamic sepsis. \ - HD per Nephrology -on case 2. Anemia, etiology is multifactorial secondary to chronic kidney disease, iron deficiency, questionable GI bleed. Patient is currently on IV iron on Epogen. - Continue to monitor CBC - Continue PPI. - per GI 3. Mineral bone disorder. Monitor calcium and phosphorus levels. 4. Encephalopathy. Etiology is toxic metabolic, possibly uremic. Continue to monitor. 5. Coronary artery disease. Continue medical management. 6. Diabetes. - Continue current insulin regimen. 7. Hypothyroidism. Continue Synthroid. 8. History of asthma. Continue current treatment plan. 9. History of atrial fibrillation. 10. Thrombocytopenia. Continue to monitor. 11. Hypertension. Blood pressure controlled. Plan of care discussed with Dr. Lind. Result Diagram: 12/11/18 1258 12/11/18 1258 Results 24hrs Laboratory Tests Test 12/11/18 09:00 12/11/18 12:31 12/11/18 12:58 12/11/18 17:53 Bedside Glucose 171 220 195 White Blood Count 5.0 # Red Blood Count 3.18 L Hemoglobin 9.4 L Hematocrit 30.3 L Mean Corpuscular 95.3 Volume Mean Corpuscular 29.6 Hemoglobin Mean Corpuscular 31.0 L Hemoglobin Concent Red Cell 17.2 H Distribution Width Platelet Count 116 L Mean Platelet Volume 11.4 H Immature 0.200 Granulocytes % Neutrophils % 71.0 Lymphocytes % 9.4 L Monocytes % 18.0 H Eosinophils % 1.0 Basophils % 0.4 Nucleated Red Blood 0.0 Cells % Immature 0.010 Granulocytes # Neutrophils # 3.6 Lymphocytes # 0.5 L Monocytes # 0.9 Eosinophils # 0.1 Basophils # 0.0 Nucleated Red Blood 0.0 Cells # Sodium Level 137 Potassium Level 3.8 Chloride Level 99 Carbon Dioxide Level 25 Anion Gap 13 Blood Urea Nitrogen 14 Creatinine 4.20 H Est Glomerular Filtrat Rate mL/min Glucose Level 216 Calcium Level 8.8 Total Bilirubin 0.5 Direct Bilirubin 0.00 Indirect Bilirubin 0.5 Aspartate Amino 41 Transf (AST/SGOT) Alanine < 6 L Aminotransferase (AL T/SGPT) Alkaline Phosphatase 89 Total Protein 6.8 Albumin 4.0 Globulin 2.80 Albumin/Globulin 1.42 Ratio Test 12/12/18 00:11 12/12/18 02:41 Bedside Glucose 197 158 Exam/Review of Systems Exam Vitals Vital Signs Date Temp Pulse Resp B/P (MAP) Pulse Ox O2 O2 Flow FiO2 Time Delivery Rate 12/12/18 111 04:00 12/11/18 3.0 23:10 12/11/18 Nasal 20:00 Cannula 12/11/18 98.1 20 146/82 93 14:58 (103) 12/11/18 32 01:34 Intake and Output 12/11/18 12/11/18 12/12/18 1515:00 23:00 07:00 IntakeIntake Total 330 ml OutputOutput Total 30 ml BalanceBalance 300 ml Results Results 24hrs Laboratory Tests Test 12/11/18 09:00 12/11/18 12:31 12/11/18 12:58 12/11/18 17:53 Bedside Glucose 171 220 195 White Blood Count 5.0 # Red Blood Count 3.18 L Hemoglobin 9.4 L Hematocrit 30.3 L Mean Corpuscular 95.3 Volume Mean Corpuscular 29.6 Hemoglobin Mean Corpuscular 31.0 L Hemoglobin Concent Red Cell 17.2 H Distribution Width Platelet Count 116 L Mean Platelet Volume 11.4 H Immature 0.200 Granulocytes % Neutrophils % 71.0 Lymphocytes % 9.4 L Monocytes % 18.0 H Eosinophils % 1.0 Basophils % 0.4 Nucleated Red Blood 0.0 Cells % Immature 0.010 Granulocytes # Neutrophils # 3.6 Lymphocytes # 0.5 L Monocytes # 0.9 Eosinophils # 0.1 Basophils # 0.0 Nucleated Red Blood 0.0 Cells # Sodium Level 137 Potassium Level 3.8 Chloride Level 99 Carbon Dioxide Level 25 Anion Gap 13 Blood Urea Nitrogen 14 Creatinine 4.20 H Est Glomerular Filtrat Rate mL/min Glucose Level 216 Calcium Level 8.8 Total Bilirubin 0.5 Direct Bilirubin 0.00 Indirect Bilirubin 0.5 Aspartate Amino 41 Transf (AST/SGOT) Alanine < 6 L Aminotransferase (AL T/SGPT) Alkaline Phosphatase 89 Total Protein 6.8 Albumin 4.0 Globulin 2.80 Albumin/Globulin 1.42 Ratio Test 12/12/18 00:11 12/12/18 02:41 Bedside Glucose 197 158 Medications Medication Current Medications Hydralazine HCl (Apresoline) 10 mg Q6H PRN IV SBP >160 Last administered on 12/11/18at 03:42; Admin Dose 10 MG; Start 11/25/18 at 14:00 Ondansetron HCl (Zofran Inj) 4 mg Q4H PRN IV NAUSEA AND/OR VOMITING Last administered on 11/29/18at 01:10; Admin Dose 4 MG; Start 11/25/18 at 14:00 Insulin Glargine (Lantus) 10 units DAILY@0800 SC Last administered on 12/11/18at 09:08; Admin Dose 10 UNITS; Start 11/26/18 at 08:00 Insulin Aspart (Novolog Insulin Pen) NOVOLOG *MILD* ALGORI... Q4 SC Last administered on 12/12/18at 03:03; Admin Dose 1 UNIT; Start 11/25/18 at 17:00 Albuterol/ Ipratropium (Duoneb) 3 ml Q6H RESP THERAPY PRN HHN SHORTNESS OF BREATH Last administered on 11/26/18at 20:17; Admin Dose 3 ML; Start 11/25/18 at 14:00 Acetaminophen (Tylenol Supp) 650 mg Q4H PRN SC MILD PAIN(1-3) OR TEMP>38C Last administered on 12/02/18at 09:25; Admin Dose 650 MG; Start 11/25/18 at 14:00 Miscellaneous Information 1 ea NOTE XX ; Start 11/25/18 at 14:30 Glucose (Glutose) 15 gm Q15M PRN PO DECREASED GLUCOSE; Start 11/25/18 at 14:30 Glucose (Glutose) 22.5 gm Q15M PRN PO DECREASED GLUCOSE; Start 11/25/18 at 14:30 Dextrose (D50w Syringe) 25 ml Q15M PRN IV DECREASED GLUCOSE; Start 11/25/18 at 14:30 Dextrose (D50w Syringe) 50 ml Q15M PRN IV DECREASED GLUCOSE; Start 11/25/18 at 14:30 Glucagon (Glucagen) 1 mg Q15M PRN IM DECREASED GLUCOSE; Start 11/25/18 at 14:30 Glucose (Glutose) 15 gm Q15M PRN BUCCAL DECREASED GLUCOSE; Start 11/25/18 at 14:30 Budesonide (Pulmicort (Neb)) 0.5 mg BID RESP THERAPY HHN Last administered on 12/11/18 23:06; Admin Dose 0.5 MG; Start 11/26/18 at 09:00 IV Flush (NS 10 ml) 10 ml PRN PRN IV IV PROTOCOL; Start 11/26/18 at 14:00 Metoprolol Tartrate (Lopressor) 5 mg Q4H PRN IV HR>110 Hold SBP<100 Last administered on 12/04/18 09:35; Admin Dose 5 MG; Start 11/26/18 at 18:00 Levothyroxine Sodium (Synthroid) 125 mcg DAILY@06 PO Last administered on 12/11/18 06:49; Admin Dose 125 MCG; Start 11/28/18 at 06:00 Albumin Human 100 ml @ 100 mls/hr DURING DIALYSIS PRN IV HYPOTENTION DURING HD Last administered on 12/03/18 10:51; Admin Dose 100 MLS/HR; Start 11/27/18 at 20:30 Acetaminophen (Tylenol Liquid) 650 mg Q4H PRN PO MILD PAIN(1-3)OR ELEVATED TEMP Last administered on 11/28/18 18:59; Admin Dose 650 MG; Start 11/28/18 at 16:00 Quetiapine Fumarate (Seroquel) 25 mg QHS PO Last administered on 12/11/18 22:28; Admin Dose 25 MG; Start 11/29/18 at 21:00 Pantoprazole (Protonix Tab) 40 mg DAILY@06 PO Last administered on 12/11/18 06:49; Admin Dose 40 MG; Start 11/30/18 at 06:00 Dextrose/Sodium Chloride 1,000 ml @ 40 mls/hr Q24H IV Last administered on 12/11/18 18:45; Admin Dose 40 MLS/HR; Start 11/30/18 at 12:30 Enalaprilat (Vasotec Iv) 1.25 mg Q2H PRN IV ELEVATED SYSTOLIC BP Last administered on 12/03/18 02:30; Admin Dose 1.25 MG; Start 12/03/18 at 00:30 Epoetin Kavon-epbx (RETACRIT(esrd)) 10,000 unit MoWeFr@1700 SC Last administered on 12/10/18at 17:35; Admin Dose 10,000 UNIT; Start 12/03/18 at 17:00 Clonidine HCl (Catapres-Tts 2 Patch) 1 patch Q7D TRANSDERM Last administered on 12/10/18at 13:14; Admin Dose 1 PATCH; Start 12/03/18 at 13:00 Docusate Sodium (Colace) 100 mg BID PRN PO CONSTIPATION; Start 12/05/18 at 19:00 Metoprolol Tartrate (Lopressor) 50 mg BID PO Last administered on 12/11/18at 22:31; Admin Dose 50 MG; Start 12/07/18 at 21:00 Hydralazine HCl (Apresoline) 25 mg Q6H PRN PO high blood pressure Last administered on 12/10/18at 22:41; Admin Dose 25 MG; Start 12/10/18 at 22:30 Polyethylene Glycol (Miralax) 17 gm DAILY PO Last administered on 12/11/18at 09:03; Admin Dose 17 GM; Start 12/11/18 at 09:00 Quetiapine Fumarate (Seroquel) 12.5 mg Q6H PRN PO agitation; Start 12/11/18 at 16:00 JODI HANSON December 12, 2018 05:23
[2018-12-12] MEDS: LEVOTHYROXINE 125 MCG TAB PO SCH (05:28)
[2018-12-12] MEDS: PANTOPRAZOLE (EC) 40 MG TAB PO SCH (05:28)
[2018-12-12] MEDS: BUDESONIDE (NEB) 0.5MG/2ML AMP HHN SCH ×2 (08:35→20:26)
[2018-12-12] MEDS: POLYETHYLENE GLYCOL 17 GM PACKET PO SCH (08:42)
[2018-12-12] MEDS: INSULIN GLARGINE [LANTus] (100 UNITS/ML) SYG SC SCH (08:46)
[2018-12-12] MEDS: METOPROLOL 50 MG TAB PO SCH ×2 (08:48→22:24)
--- NOTE | 2018-12-12 09:07 | PN ---
DATE: 12/12/2018 SUBJECTIVE: The patient is stable, no events overnight. OBJECTIVE: VITAL SIGNS: Blood pressure is 149/86, pulse 118, respirations 20, temperature 98.1. HEENT: Head is normocephalic. NECK: Supple. HEART: Regular rate. LUNGS: Show diminished breath sounds at the base. ABDOMEN: Nontender to palpation. No rebound or guarding. EXTREMITIES: Negative for clubbing, cyanosis, no edema. DERMATOLOGIC: No rashes. MUSCULOSKELETAL: No joint effusion. NEUROLOGIC: No change in exam. MEDICATIONS: Reviewed. LABORATORY DATA: Reviewed. ASSESSMENT AND PLAN: 1. Oliguric acute kidney injury on top of chronic kidney disease stage IV, now likely end-stage yamilka l disease. The patient is on hemodialysis. Dialysis is scheduled for today. Continue to monitor fo r any signs of renal recovery. 2. Anemia. Continue to monitor hemoglobin and hematocrit levels. Continue Epogen. 3. Mineral bone disorder, monitor calcium and phosphorus levels. 4. Encephalopathy, etiology is toxic metabolic. Continue to monitor. 5. Coronary artery disease. Continue current medical management. 6. Diabetes. Continue current insulin regimen. 7. Hypothyroidism. Continue Synthroid. 8. History of atrial fibrillation. 9. Thrombocytopenia. Continue to monitor. 10. Hypertension. Continue current blood pressure regimen. 11. Tachyarrhythmia. Continue to monitor. Dictated By: SUSY CISNEROS DO NR/NTS Conf#: [id number] DID#: [id number] CC: NEREIDA MCQUEEN MD; EVA LOPEZ MD;*End*
[2018-12-12] MEDS: DEXTROSE 5%-0.45% NACL 1,000 ML IV SCH (12:36)
--- NOTE | 2018-12-12 15:55 | CONS ---
Assessment/Plan Assessment/Plan Hospital Course 78 yo F with hx of ESRD on HD and other comorbidities who presents with ams in contest of respiratory sx. She was noted to be acutely encephalopathic following HD on 11/28, for which neurology is consulted. 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 MRI brain was technically limited, but was otherwise without obvious acute intracranial pathology. HCT on 11/25 was the same. EEG was without obvious epileptiform activity.. UA++ ammonia wnl, TSH nl, B12 ok P: [place] as able Continue seroquel hs and prn Limit other sedating medications where possible Cont medical management and supportive care per primary Will follow clinically Consultation Date/Type/Reason Admit Date/Time Nov 25, 2018 at 13:18 Type of Consult Neurology Reason for Consultation ams Requesting Provider: GENNY SULLIVAN Date/Time of Note DATE: 12/12/18 TIME: 15:55 24 HR Interval Summary Free Text/Dictation Continues acute care. Pt continues to have episodes of confusion, but has reportedly remained calm throughout the shift. Exam Vital Signs Vitals Vital Signs Date Temp Pulse Resp B/P (MAP) Pulse Ox O2 O2 Flow FiO2 Time Delivery Rate 12/12/18 97.5 90 20 148/79 99 Nasal 15:01 (102) Cannula 12/12/18 4.0 08:36 12/12/18 21 08:36 Intake and Output 12/11/18 12/11/18 12/12/18 1515:00 23:00 07:00 IntakeIntake Total 330 ml OutputOutput Total 30 ml BalanceBalance 300 ml Exam PE: Gen Appearance: Calm, NAD HEENT: Normocephalic Cardiovascular: Regular rate Abdomen: Soft Extremities: Dry NE: The patient was asleep though easily arousable to voice.S parsely verbal.. Fund of knowledge was limited. Cranial nerve examination was limited by mental status. Pupils were equal and reactive to light. There was no afferent pupillary defect. Funduscopic examina tion was limited. Face was grossly symmetric, w/ present corneal and cough reflexes. Tone was normal. Muscle bulk was normal. I did not see fasciculations. The patient had symmetric movement of her extremities. Coordination and gait testing was limited by mental status. Arm and leg reflexes were within normal limits and symmetric. Lai's sign was absent. Plantar responses were flexor. NICHO HENDRIX NP December 12, 2018 15:55
--- NOTE | 2018-12-12 16:08 | CONS ---
Assessment/Plan Assessment/Plan Assessment/Plan (Daily) Assessment/Plan Hospital Course (Demo Recall) 78-year-old female with a history of hypertension, CHF, chronic kidney disease, diabetes mellitus, pulmonary embolism, status post surgery, atrial fibrillation admitted originally to [facility] for respiratory failure, transferred to [place]. At [place] pt was found to be hypotensive and transferred to [facility]. We were consulted for anemia and positive guaiac stool Interval hx: No signs of GI bleeding. No acute changes . Labs have not been drawn since 12/07. RN denies any evidence of GI bleeding. She is now on pureed diet with poor appetite. 1. Anemia due to the chronic gastrointestinal blood loss and also chronic disease. -Capsule endoscopy and EGD reports from [facility] are unremarkable. 2. Diabetes mellitus. 3. Thrombocytopenia. 4. Bronchial asthma. 5. Atrial fibrillation. 6. Acute on chronic renal failure 7. Mildly elevated CEA at 6.6 Plan Aspiration precautions Follow dietary recs Consider Iron supplementation Spoke with daughter Janee over phone who states family does not want a colonoscopy or another EGD. Pt needs colonoscopy since CEA elevated and positive FOB and personal history of hx of colon cancer Monitor HH and for active GI bleeding Consultation Date/Type/Reason Admit Date/Time Nov 25, 2018 at 13:18 Initial Consult Date 11/26/18 Requesting Provider: GENNY SULLIVAN Date/Time of Note DATE: 12/12/18 TIME: 16:07 24 HR Interval Summary Constitutional: improved, disoriented Exam/Review of Systems Exam Vitals Vital Signs Date Temp Pulse Resp B/P (MAP) Pulse Ox O2 O2 Flow FiO2 Time Delivery Rate 12/12/18 97.5 90 20 148/79 99 Nasal 15:01 (102) Cannula 12/12/18 4.0 08:36 12/12/18 21 08:36 Intake and Output 12/11/18 12/11/18 12/12/18 1414:59 22:59 06:59 IntakeIntake Total 330 ml OutputOutput Total 30 ml BalanceBalance 300 ml Constitutional: alert, oriented, well developed Psych: no complaints, nl mood/affect Head: normocephalic, atraumatic Eyes: nl conjunctiva, EOMI, nl lids, nl sclera, PERRL ENMT: nl external ears & nose, nl lips & teeth, nl nasal mucosa & septum Neck: supple, non-tender Respiratory: clear to auscultation, normal air movement Cardiovascular: regular rate and rhythm, nl pulses Gastrointestinal: soft, nl liver, spleen, non-tender Musculoskeletal: nl extremities to inspection, nl gait and stance Extremities: normal pulses Neurological: 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 intact, nl mental status, nl speech, nl strength Skin: nl turgor; No rash or lesions Lymph: nl lymph nodes Results Result Diagram: 12/12/1814 12/12/1814 Results 24hrs Laboratory Tests Test 12/11/18 17:53 12/12/18 00:11 12/12/18 02:41 12/12/18 05:25 Bedside Glucose 195 197 158 160 Test 12/12/18 07:14 12/12/18 08:02 12/12/18 12:29 White Blood Count 5.1 Red Blood Count 2.95 L Hemoglobin 8.8 L Hematocrit 28.2 L Mean Corpuscular Volume 95.6 Mean Corpuscular 29.8 Hemoglobin Mean Corpuscular 31.2 L Hemoglobin Concent Red Cell Distribution 17.3 H Width Platelet Count 119 L Mean Platelet Volume 11.9 H Immature Granulocytes % 0.400 Neutrophils % 69.2 Lymphocytes % 12.4 L Monocytes % 16.2 H Eosinophils % 1.4 Basophils % 0.4 Nucleated Red Blood 0.0 Cells % Immature Granulocytes # 0.020 Neutrophils # 3.5 Lymphocytes # 0.6 L Monocytes # 0.8 Eosinophils # 0.1 Basophils # 0.0 Nucleated Red Blood 0.0 Cells # Sodium Level 137 Potassium Level 4.3 Chloride Level 100 Carbon Dioxide Level 25 Anion Gap 12 Blood Urea Nitrogen 17 Creatinine 5.24 H Est Glomerular Filtrat Rate mL/min Glucose Level 181 Calcium Level 8.7 Bedside Glucose 199 200 Medications Medication Current Medications Hydralazine HCl (Apresoline) 10 mg Q6H PRN IV SBP >160 Last administered on 11/14 at 03:42; Admin Dose 10 MG; Start 11/25/18 at 14:00 Ondansetron HCl (Zofran Inj) 4 mg Q4H PRN IV NAUSEA AND/OR VOMITING Last administered on 11/29/18at 01:10; Admin Dose 4 MG; Start 11/25/18 at 14:00 Insulin Glargine (Lantus) 10 units DAILY@0800 SC Last administered on 12/12/18 08:46; Admin Dose 10 UNITS; Start 11/26/18 at 08:00 Insulin Aspart (Novolog Insulin Pen) NOVOLOG *MILD* ALGORI... Q4 SC Last administered on 12/12/18 12:40; Admin Dose 2 UNIT; Start 11/25/18 at 17:00 Albuterol/ Ipratropium (Duoneb) 3 ml Q6H RESP THERAPY PRN HHN SHORTNESS OF BREATH Last administered on 11/26/18at 20:17; Admin Dose 3 ML; Start 11/25/18 at 14:00 Acetaminophen (Tylenol Supp) 650 mg Q4H PRN [place] MILD PAIN(1-3) OR TEMP>38C Last administered on 12/02/18 09:25; Admin Dose 650 MG; Start 11/25/18 at 14:00 Miscellaneous Information 1 ea NOTE XX ; Start 11/25/18 at 14:30 Glucose (Glutose) 15 gm Q15M PRN PO DECREASED GLUCOSE; Start 11/25/18 at 14:30 Glucose (Glutose) 22.5 gm Q15M PRN PO DECREASED GLUCOSE; Start 11/25/18 at 14:30 Dextrose (D50w Syringe) 25 ml Q15M PRN IV DECREASED GLUCOSE; Start 11/25/18 at 14:30 Dextrose (D50w Syringe) 50 ml Q15M PRN IV DECREASED GLUCOSE; Start 11/25/18 at 14:30 Glucagon (Glucagen) 1 mg Q15M PRN IM DECREASED GLUCOSE; Start 11/25/18 at 14:30 Glucose (Glutose) 15 gm Q15M PRN BUCCAL DECREASED GLUCOSE; Start 11/25/18 at 14:30 Budesonide (Pulmicort (Neb)) 0.5 mg BID RESP THERAPY HHN Last administered on 12/12/18 08:35; Admin Dose 0.5 MG; Start 11/26/18 at 09:00 IV Flush (NS 10 ml) 10 ml PRN PRN IV IV PROTOCOL; Start 11/26/18 at 14:00 Metoprolol Tartrate (Lopressor) 5 mg Q4H PRN IV HR>110 Hold SBP<100 Last administered on 12/04/18 09:35; Admin Dose 5 MG; Start 11/26/18 at 18:00 Levothyroxine Sodium (Synthroid) 125 mcg DAILY@06 PO Last administered on 12/12/18 05:28; Admin Dose 125 MCG; Start 11/28/18 at 06:00 Albumin Human 100 ml @ 100 mls/hr DURING DIALYSIS PRN IV HYPOTENTION DURING HD Last administered on 12/03/18 10:51; Admin Dose 100 MLS/HR; Start 11/27/18 at 20:30 Acetaminophen (Tylenol Liquid) 650 mg Q4H PRN PO MILD PAIN(1-3)OR ELEVATED TEMP Last administered on 11/28/18 18:59; Admin Dose 650 MG; Start 11/28/18 at 16:00 Quetiapine Fumarate (Seroquel) 25 mg QHS PO Last administered on 12/11/18 22:28; Admin Dose 25 MG; Start 11/29/18 at 21:00 Pantoprazole (Protonix Tab) 40 mg DAILY@06 PO Last administered on 12/12/18 05:28; Admin Dose 40 MG; Start 11/30/18 at 06:00 Dextrose/Sodium Chloride 1,000 ml @ 40 mls/hr Q24H IV Last administered on 12/12/18 12:36; Admin Dose 40 MLS/HR; Start 11/30/18 at 12:30 Enalaprilat (Vasotec Iv) 1.25 mg Q2H PRN IV ELEVATED SYSTOLIC BP Last administered on 12/03/18 02:30; Admin Dose 1.25 MG; Start 12/03/18 at 00:30 Epoetin Kavon-epbx (RETACRIT(esrd)) 10,000 unit MoWeFr@1700 SC Last administered on 12/10/18 17:35; Admin Dose 10,000 UNIT; Start 12/03/18 at 17:00 Clonidine HCl (Catapres-Tts 2 Patch) 1 patch Q7D TRANSDERM Last administered on 12/10/18 13:14; Admin Dose 1 PATCH; Start 12/03/18 at 13:00 Docusate Sodium (Colace) 100 mg BID PRN PO CONSTIPATION; Start 12/05/18 at 19:0 0 Metoprolol Tartrate (Lopressor) 50 mg BID PO Last administered on 12/12/18 08:48; Admin Dose 50 MG; Start 12/07/18 at 21:00 Hydralazine HCl (Apresoline) 25 mg Q6H PRN PO high blood pressure Last a dministered on 12/10/18at 22:41; Admin Dose 25 MG; Start 12/10/18 at 22:30 Polyethylene Glycol (Miralax) 17 gm DAILY PO Last administered on 12/12/18at 08:42; Admin Dose 17 GM; Start 12/11/18 at 09:00 Quetiapine Fumarate (Seroquel) 12.5 mg Q6H PRN PO agitation; Start 12/11/18 at 16:00 KASANDRA FLOYD MD December 12, 2018 16:08
--- NOTE | 2018-12-12 16:21 | CONS ---
Assessment/Plan Assessment/Plan Hospital Course (Demo Recall) IMPRESSION: 1. Hypotension-overall improved and not on pressors currently and now HTN requiring medications 2. Atrial fibrillation, primarily rate controlled off of antihypertensives at this time. 3. Anemia, worsening with guaiac positive stool consistent with gastrointestinal bleed. 4. Diabetes mellitus. 5. Acute on chronic renal failure,now on hemodialysis. 6. Altered mental state. 7. Diastolic congestive heart failure due to a preserved EF by most recent echo and findings by chest x-ray. 8. History of coronary artery disease, nonobstructive by outside hospital catheterization. 9. Shortness of breath with hypothyroidism. 10. Diabetes mellitus. 11.UTI Recc: -Continue BB with slight increase/clonidine TTS and follow-up BP closely -Dose digoxin IVP to assure good HR control -HD for volume removal -Follow HR/rhythm closely -not on anticoagulation secondary to GIB/anemia requiring transfusion -to undergo endoscopy? but family refusing Consultation Date/Type/Reason Admit Date/Time Nov 25, 2018 at 13:18 Initial Consult Date 11/26/18 Type of Consult Cardiology Reason for Consultation tachycardia Requesting Provider: GENNY SULLIVAN Date/Time of Note DATE: 12/12/18 TIME: 16:15 Exam/Review of Systems Vital Signs Vitals Vital Signs Date Temp Pulse Resp B/P (MAP) Pulse Ox O2 O2 Flow FiO2 Time Delivery Rate 12/12/18 97.5 90 20 148/79 99 Nasal 15:01 (102) Cannula 12/12/18 4.0 08:36 12/12/18 21 08:36 Intake and Output 12/11/18 12/11/18 12/12/18 1414:59 22:59 06:59 IntakeIntake Total 330 ml OutputOutput Total 30 ml BalanceBalance 300 ml Exam Exam Review of Systems: CONSTITUTIONAL: No fevers, chills. PULMONARY: No sob CARDIOVASCULAR: No chest pain/palpitations GASTROINTESTINAL: No nausea/vomiting. GENITOURINARY: No hematuria/dysuria. MUSCULOSKELETAL: No myagias/arthalgias. PSYCHIATRIC: The patient denies depression. NEUROLOGIC: No weakness Constitutional: alert Psych: no complaints Head: normocephalic ENMT: mucosa pink and moist Neck: supple, jvd Respiratory: diminished breath sounds Cardiovascular: regular rate and rhythm Gastrointestinal: soft, non-tender Musculoskeletal: muscle tone (normal) Extremities: edema (none) Neurological: other (No focal deficits) Labs Result Diagram: 12/12/18 0714 12/12/18 0714 Results 24hrs Laboratory Tests Test 12/11/18 17:53 12/12/18 00:11 12/12/18 02:41 12/12/18 05:25 Bedside Glucose 195 197 158 160 Test 12/12/18 07:14 12/12/18 08:02 12/12/18 12:29 White Blood Count 5.1 Red Blood Count 2.95 L Hemoglobin 8.8 L Hematocrit 28.2 L Mean Corpuscular Volume 95.6 Mean Corpuscular 29.8 Hemoglobin Mean Corpuscular 31.2 L Hemoglobin Concent Red Cell Distribution 17.3 H Width Platelet Count 119 L Mean Platelet Volume 11.9 H Immature Granulocytes % 0.400 Neutrophils % 69.2 Lymphocytes % 12.4 L Monocytes % 16.2 H Eosinophils % 1.4 Basophils % 0.4 Nucleated Red Blood 0.0 Cells % Immature Granulocytes # 0.020 Neutrophils # 3.5 Lymphocytes # 0.6 L Monocytes # 0.8 Eosinophils # 0.1 Basophils # 0.0 Nucleated Red Blood 0.0 Cells # Sodium Level 137 Potassium Level 4.3 Chloride Level 100 Carbon Dioxide Level 25 Anion Gap 12 Blood Urea Nitrogen 17 Creatinine 5.24 H Est Glomerular Filtrat Rate mL/min Glucose Level 181 Calcium Level 8.7 Bedside Glucose 199 200 Medications Medications Current Medications Hydralazine HCl (Apresoline) 10 mg Q6H PRN IV SBP >160 Last administered on 12/11/18at 03:42; Admin Dose 10 MG; Start 11/25/18 at 14:00 Ondansetron HCl (Zofran Inj) 4 mg Q4H PRN IV NAUSEA AND/OR VOMITING Last administered on 11/29/18at 01:10; Admin Dose 4 MG; Start 11/25/18 at 14:00 Insulin Glargine (Lantus) 10 units DAILY@0800 SC Last administered on 12/12/18at 08:46; Admin Dose 10 UNITS; Start 11/26/18 at 08:00 Insulin Aspart (Novolog Insulin Pen) NOVOLOG *MILD* ALGORI... Q4 SC Last administered on 12/12/18at 12:40; Admin Dose 2 UNIT; Start 11/25/18 at 17:00 Albuterol/ Ipratropium (Duoneb) 3 ml Q6H RESP THERAPY PRN HHN SHORTNESS OF BREATH Last administered on 11/26/18at 20:17; Admin Dose 3 ML; Start 11/25/18 at 14:00 Acetaminophen (Tylenol Supp) 650 mg Q4H PRN [place] MILD PAIN(1-3) OR TEMP>38C Last administered on 12/02/18 09:25; Admin Dose 650 MG; Start 11/25/18 at 14:00 Miscellaneous Information 1 ea NOTE XX ; Start 11/25/18 at 14:30 Glucose (Glutose) 15 gm Q15M PRN PO DECREASED GLUCOSE; Start 11/25/18 at 14:30 Glucose (Glutose) 22.5 gm Q15M PRN PO DECREASED GLUCOSE; Start 11/25/18 at 14:30 Dextrose (D50w Syringe) 25 ml Q15M PRN IV DECREASED GLUCOSE; Start 11/25/18 at 14:30 Dextrose (D50w Syringe) 50 ml Q15M PRN IV DECREASED GLUCOSE; Start 11/25/18 at 14:30 Glucagon (Glucagen) 1 mg Q15M PRN IM DECREASED GLUCOSE; Start 11/25/18 at 14:30 Glucose (Glutose) 15 gm Q15M PRN BUCCAL DECREASED GLUCOSE; Start 11/25/18 at 14:30 Budesonide (Pulmicort (Neb)) 0.5 mg BID RESP THERAPY HHN Last administered on 12/12/18at 08:35; Admin Dose 0.5 MG; Start 11/26/18 at 09:00 IV Flush (NS 10 ml) 10 ml PRN PRN IV IV PROTOCOL; Start 11/26/18 at 14:00 Metoprolol Tartrate (Lopressor) 5 mg Q4H PRN IV HR>110 Hold SBP<100 Last administered on 12/04/18 09:35; Admin Dose 5 MG; Start 11/26/18 at 18:00 Levothyroxine Sodium (Synthroid) 125 mcg DAILY@06 PO Last administered on 12/12/18 05:28; Admin Dose 125 MCG; Start 11/28/18 at 06:00 Albumin Human 100 ml @ 100 mls/hr DURING DIALYSIS PRN IV HYPOTENTION DURING HD Last administered on 12/03/18at 10:51; Admin Dose 100 MLS/HR; Start 11/27/18 at 20:30 Acetaminophen (Tylenol Liquid) 650 mg Q4H PRN PO MILD PAIN(1-3)OR ELEVATED TEMP Last administered on 11/28/18 18:59; Admin Dose 650 MG; Start 11/28/18 at 16:00 Quetiapine Fumarate (Seroquel) 25 mg QHS PO Last administered on 12/11/18 22:28; Admin Dose 25 MG; Start 11/29/18 at 21:00 Pantoprazole (Protonix Tab) 40 mg DAILY@06 PO Last administered on 12/12/18 05:28; Admin Dose 40 MG; Start 11/30/18 at 06:00 Dextrose/Sodium Chloride 1,000 ml @ 40 mls/hr Q24H IV Last administered on 12/12/18 12:36; Admin Dose 40 MLS/HR; Start 11/30/18 at 12:30 Enalaprilat (Vasotec Iv) 1.25 mg Q2H PRN IV ELEVATED SYSTOLIC BP Last administered on 12/03/18 02:30; Admin Dose 1.25 MG; Start 12/03/18 at 00:30 Epoetin Kavon-epbx (RETACRIT(esrd)) 10,000 unit MoWeFr@1700 SC Last administered on 12/10/18 17:35; Admin Dose 10,000 UNIT; Start 12/03/18 at 17:00 Clonidine HCl (Catapres-Tts 2 Patch) 1 patch Q7D TRANSDERM Last administered on 12/10/18 13:14; Admin Dose 1 PATCH; Start 12/03/18 at 13:00 Docusate Sodium (Colace) 100 mg BID PRN PO CONSTIPATION; Start 12/05/18 at 19:00 Metoprolol Tartrate (Lopressor) 50 mg BID PO Last administered on 12/12/18 08:48; Admin Dose 50 MG; Start 12/07/18 at 21:00 Hydralazine HCl (Apresoline) 25 mg Q6H PRN PO high blood pressure Last administered on 12/10/18 22:41; Admin Dose 25 MG; Start 12/10/18 at 22:30 Polyethylene Glycol (Miralax) 17 gm DAILY PO Last administered on 5/1/19at 08:42; Admin Dose 17 GM; Start 12/11/18 at 09:00 Quetiapine Fumarate (Seroquel) 12.5 mg Q6H PRN PO agitation; Start 12/11/18 at 16:00 CARMELO MAE December 12, 2018 16:21
[2018-12-12] MEDS: EPOETIN ALFA-EPBX (ESRD) 10,000 UNIT/ML VIAL SC SCH (18:05)
[2018-12-12] MEDS: QUETIAPINE 25 MG TAB PO SCH (22:23)
[2018-12-13] VITALS (11 sets, daily range): BP systolic 144–175; BP diastolic 65–112; PULSE 74–110; RESP 18–20
[2018-12-13] MEDS: INSULIN ASPART [NOVOLOG] 3 ML PEN SC SCH ×6 (01:00→20:25)
[2018-12-13] MEDS: LEVOTHYROXINE 125 MCG TAB PO SCH (05:25)
[2018-12-13] MEDS: PANTOPRAZOLE (EC) 40 MG TAB PO SCH (05:25)
[2018-12-13] MEDS: BUDESONIDE (NEB) 0.5MG/2ML AMP HHN SCH ×2 (08:05→20:43)
[2018-12-13] MEDS: POLYETHYLENE GLYCOL 17 GM PACKET PO SCH (09:00)
[2018-12-13] MEDS: METOPROLOL 50 MG TAB PO SCH ×2 (09:09→20:20)
--- NOTE | 2018-12-13 10:20 | PN ---
DATE: 12/13/2018 SUBJECTIVE: The patient is stable, no events overnight. OBJECTIVE: VITAL SIGNS: Blood pressure is 152/82, pulse 63, respirations 22, temperature 98.6. HEENT: Head is normocephalic. NECK: Supple. HEART: Regular rate. LUNGS: Show diminished breath sounds at the base. ABDOMEN: Soft, nontender to palpation. No rebound or guarding. EXTREMITIES: Negative for clubbing, cyanosis, no edema. DERMATOLOGIC: No rashes. MUSCULOSKELETAL: No joint effusion. NEUROLOGIC: No change in exam. MEDICATIONS: Reviewed. LABORATORY DATA: Reviewed. ASSESSMENT AND PLAN: 1. Acute kidney injury on top of chronic kidney disease stage IV, now likely progression towards end -stage renal disease. The patient is dialysis dependent, no evidence of recovery. Plan is for hemod ialysis tomorrow. 2. Anemia. Continue to monitor hemoglobin and hematocrit levels. Continue Epogen. 3. Mineral bone disorder. Continue to monitor calcium and phosphorus levels. 4. Encephalopathy, etiology is toxic metabolic. Continue to monitor. 5. Coronary artery disease. Continue current treatment plan. 6. Diabetes. Continue current insulin regimen. 7. Hypothyroidism. Continue Synthroid. 8. History of atrial fibrillation. 9. Thrombocytopenia. Continue to monitor. 10. Hypertension. Continue current blood pressure regimen. 11. Tachyarrhythmia. Continue to monitor. Dictated By: SUSY CISNEROS DO NR/NTS Conf#: [id number] DID#: [id number] CC: EVA LOPEZ MD; NEREIDA MCQUEEN MD;*End*
[2018-12-13] MEDS: INSULIN GLARGINE [LANTus] (100 UNITS/ML) SYG SC SCH (10:59)
--- NOTE | 2018-12-13 12:07 | CONS ---
Assessment/Plan Assessment/Plan Assessment/Plan (Daily) Assessment/Plan Hospital Course (Demo Recall) 78-year-old female with a history of hypertension, CHF, chronic kidney disease, diabetes mellitus, pulmonary embolism, status post surgery, atrial fibrillation admitted originally to [facility] for respiratory failure, transferred to [place]. At [place] pt was found to be hypotensive and transferred to [facility]. We were consulted for anemia and positive guaiac stool Interval hx: No signs of GI bleeding. No acute changes . Labs have not been drawn since 12/07. RN denies any evidence of GI bleeding. She is now on pureed diet with poor appetite. 1. Anemia due to the chronic gastrointestinal blood loss and also chronic disease. -Capsule endoscopy and EGD reports from [facility] are unremarkable. 2. Diabetes mellitus. 3. Thrombocytopenia. 4. Bronchial asthma. 5. Atrial fibrillation. 6. Acute on chronic renal failure, patient is on hemodialysis 7. Mildly elevated CEA at 6.6 Plan Aspiration precautions Follow dietary recs Consider Iron supplementation Spoke with daughter Janee over phone who states family does not want a colonoscopy or another EGD. Pt needs colonoscopy since CEA elevated and positive FOB and personal history of hx of colon cancer Monitor HH and for active GI bleeding Consultation Date/Type/Reason Admit Date/Time Nov 25, 2018 at 13:18 Initial Consult Date 11/26/18 Requesting Provider: GENNY SULLIVAN Date/Time of Note DATE: 12/13/18 TIME: 12:06 24 HR Interval Summary Constitutional: no complaints, improved Exam/Review of Systems Exam Vitals Vital Signs Date Temp Pulse Resp B/P (MAP) Pulse Ox O2 O2 Flow FiO2 Time Delivery Rate 12/13/18 4.0 08:08 12/13/18 63 22 Nasal 08:08 Cannula 12/13/18 98.6 152/82 96 07:51 (105) 12/12/18 21 08:36 Intake and Output 12/12/18 12/12/18 12/13/18 1515:00 23:00 07:00 IntakeIntake Total 20 ml 480 ml 530 ml OutputOutput Total 50 ml 2430 ml 10 ml BalanceBalance -30 ml -1950 ml 520 ml Constitutional: alert, oriented, well developed Psych: no complaints, nl mood/affect Head: normocephalic, atraumatic Eyes: nl conjunctiva, EOMI, nl lids, nl sclera, PERRL ENMT: nl external ears & nose, nl lips & teeth, nl nasal mucosa & septum Neck: supple, non-tender Respiratory: clear to auscultation, normal air movement Cardiovascular: regular rate and rhythm, nl pulses Gastrointestinal: soft, nl liver, spleen, non-tender Musculoskeletal: nl extremities to inspection, nl gait and stance Extremities: normal pulses Neurological: 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, nl mental status, nl speech, nl strength Skin: nl turgor; No rash or lesions Lymph: nl lymph nodes Results Result Diagram: 12/12/18 0714 12/12/18 0714 Results 24hrs Laboratory Tests Test 12/12/18 12:29 12/12/18 17:28 12/12/18 22:21 12/13/18 05:26 Bedside Glucose 200 221 H 137 142 Test 12/13/18 07:58 Bedside Glucose 143 Medications Medication Current Medications Hydralazine HCl (Apresoline) 10 mg Q6H PRN IV SBP >160 Last administered on 12/11/18 03:42; Admin Dose 10 MG; Start 11/25/18 at 14:00 Ondansetron HCl (Zofran Inj) 4 mg Q4H PRN IV NAUSEA AND/OR VOMITING Last administered on 11/29/18 01:10; Admin Dose 4 MG; Start 11/25/18 at 14:00 Insulin Glargine (Lantus) 10 units DAILY@0800 SC Last administered on 12/13/18 10:59; Admin Dose 10 UNITS; Start 11/26/18 at 08:00 Insulin Aspart (Novolog Insulin Pen) NOVOLOG *MILD* ALGORI... Q4 SC Last administered on 12/13/18 09:12; Admin Dose 1 UNIT; Start 11/25/18 at 17:00 Albuterol/ Ipratropium (Duoneb) 3 ml Q6H RESP THERAPY PRN HHN SHORTNESS OF BREATH Last administered on 11/26/18 20:17; Admin Dose 3 ML; Start 11/25/18 at 14:00 Acetaminophen (Tylenol Supp) 650 mg Q4H PRN [place] MILD PAIN(1-3) OR TEMP>38C Last administered on 12/02/18 09:25; Admin Dose 650 MG; Start 11/25/18 at 14:00 Miscellaneous Information 1 ea NOTE XX ; Start 11/25/18 at 14:30 Glucose (Glutose) 15 gm Q15M PRN PO DECREASED GLUCOSE; Start 11/25/18 at 14:30 Glucose (Glutose) 22.5 gm Q15M PRN PO DECREASED GLUCOSE; Start 11/25/18 at 14:30 Dextrose (D50w Syringe) 25 ml Q15M PRN IV DECREASED GLUCOSE; Start 11/25/18 at 14:30 Dextrose (D50w Syringe) 50 ml Q15M PRN IV DECREASED GLUCOSE; Start 11/25/18 at 14:30 Glucagon (Glucagen) 1 mg Q15M PRN IM DECREASED GLUCOSE; Start 11/25/18 at 14:30 Glucose (Glutose) 15 gm Q15M PRN BUCCAL DECREASED GLUCOSE; Start 11/25/18 at 14:30 Budesonide (Pulmicort (Neb)) 0.5 mg BID RESP THERAPY HHN Last administered on 12/13/18at 08:05; Admin Dose 0.5 MG; Start 11/26/18 at 09:00 IV Flush (NS 10 ml) 10 ml PRN PRN IV IV PROTOCOL; Start 11/26/18 at 14:00 Metoprolol Tartrate (Lopressor) 5 mg Q4H PRN IV HR>110 Hold SBP<100 Last administered on 12/04/18at 09:35; Admin Dose 5 MG; Start 11/26/18 at 18:00 Levothyroxine Sodium (Synthroid) 125 mcg DAILY@06 PO Last administered on 12/13/18at 05:25; Admin Dose 125 MCG; Start 11/28/18 at 06:00 Albumin Human 100 ml @ 100 mls/hr DURING DIALYSIS PRN IV HYPOTENTION DURING HD Last administered on 12/03/18at 10:51; Admin Dose 100 MLS/HR; Start 11/27/18 at 20:30 Acetaminophen (Tylenol Liquid) 650 mg Q4H PRN PO MILD PAIN(1-3)OR ELEVATED TEMP Last administered on 11/28/18at 18:59; Admin Dose 650 MG; Start 11/28/18 at 16:00 Quetiapine Fumarate (Seroquel) 25 mg QHS PO Last administered on 12/12/18at 22:23; Admin Dose 25 MG; Start 11/29/18 at 21:00 Pantoprazole (Protonix Tab) 40 mg DAILY@06 PO Last administered on 12/13/18 05:25; Admin Dose 40 MG; Start 11/30/18 at 06:00 Dextrose/Sodium Chloride 1,000 ml @ 40 mls/hr Q24H IV Last administered on 12/12/18 12:36; Admin Dose 40 MLS/HR; Start 11/30/18 at 12:30 Enalaprilat (Vasotec Iv) 1.25 mg Q2H PRN IV ELEVATED SYSTOLIC BP Last adm inistered on 12/03/18 02:30; Admin Dose 1.25 MG; Start 12/03/18 at 00:30 Epoetin Kavon-epbx (RETACRIT(esrd)) 10,000 unit MoWeFr@1700 SC Last administered on 12/12/18 18:05; Admin Dose 10,000 UNIT; Start 12/03/18 at 17:00 Clonidine HCl (Catapres-Tts 2 Patch) 1 patch Q7D TRANSDERM Last administered on 12/10/18at 13:14; Admin Dose 1 PATCH; Start 12/03/18 at 13:00 Docusate Sodium (Colace) 100 mg BID PRN PO CONSTIPATION; Start 12/05/18 at 19:00 Hydralazine HCl (Apresoline) 25 mg Q6H PRN PO high blood pressure Last administered on 12/10/18 22:41; Admin Dose 25 MG; Start 12/10/18 at 22:30 Polyethylene Glycol (Miralax) 17 gm DAILY PO Last administered on 12/12/18 08:42; Admin Dose 17 GM; Start 12/11/18 at 09:00 Quetiapine Fumarate (Seroquel) 12.5 mg Q6H PRN PO agitation; Start 12/11/18 at 16:00 Metoprolol Tartrate (Lopressor) 75 mg BID PO Last administered on 12/13/18 09:09; Admin Dose 75 MG; Start 12/12/18 at 21:00 KASANDRA FLOYD MD December 13, 2018 12:07
[2018-12-13] MEDS: DEXTROSE 5%-0.45% NACL 1,000 ML IV SCH (12:30)
--- NOTE | 2018-12-13 14:08 | CONS ---
Assessment/Plan Assessment/Plan Hospital Course (Demo Recall) IMPRESSION: 1. Hypotension-overall improved and not on pressors currently and now HTN requiring medications 2. Atrial fibrillation, primarily rate controlled off of antihypertensives at this time. 3. Anemia, worsening with guaiac positive stool consistent with gastrointestinal bleed. 4. Diabetes mellitus. 5. Acute on chronic renal failure,now on hemodialysis. 6. Altered mental state. 7. Diastolic congestive heart failure due to a preserved EF by most recent echo and findings by chest x-ray. 8. History of coronary artery disease, nonobstructive by outside hospital catheterization. 9. Shortness of breath with hypothyroidism. 10. Diabetes mellitus. 11.UTI Recc: -Continue BB with slight increase/clonidine TTS and follow-up BP closely -will add CCB to improve BP -s/p dose digoxin IVP to assure good HR control -HD for volume removal -Follow HR/rhythm closely -not on anticoagulation secondary to GIB/anemia requiring transfusion -to undergo endoscopy? but family refusing Consultation Date/Type/Reason Admit Date/Time Nov 25, 2018 at 13:18 Initial Consult Date 11/26/18 Type of Consult Cardiology Reason for Consultation AF Requesting Provider: GENNY SULLIVAN Date/Time of Note DATE: 12/13/18 TIME: 14:05 Exam/Review of Systems Vital Signs Vitals Vital Signs Date Temp Pulse Resp B/P (MAP) Pulse Ox O2 O2 Flow FiO2 Time Delivery Rate 12/13/18 4.0 08:08 12/13/18 63 22 Nasal 08:08 Cannula 12/13/18 98.6 152/82 96 07:51 (105) 12/12/18 21 08:36 Intake and Output 12/12/18 12/12/18 12/13/18 1414:59 22:59 06:59 IntakeIntake Total 20 ml 480 ml 530 ml OutputOutput Total 50 ml 2430 ml 10 ml BalanceBalance -30 ml -1950 ml 520 ml Exam Exam Review of Systems: CONSTITUTIONAL: No fevers, chills. PULMONARY: No sob CARDIOVASCULAR: No chest pain/palpitations GASTROINTESTINAL: No nausea/vomiting. GENITOURINARY: No hematuria/dysuria. MUSCULOSKELETAL: No myagias/arthalgias. PSYCHIATRIC: The patient denies depression. NEUROLOGIC: No weakness Constitutional: alert Psych: no complaints Head: normocephalic ENMT: mucosa pink and moist Neck: supple, jvd (9 cm water) Respiratory: diminished breath sounds Cardiovascular: regular rate and rhythm Gastrointestinal: soft, non-tender Musculoskeletal: muscle tone (normal) Extremities: edema (none) Labs Result Diagram: 12/12/18 0714 12/12/18 0714 Results 24hrs Laboratory Tests Test 12/12/18 17:28 12/12/18 22:21 12/13/18 05:26 12/13/18 07:58 Bedside Glucose 221 H 137 142 143 Test 12/13/18 12:03 Bedside Glucose 165 Medications Medications Current Medications Hydralazine HCl (Apresoline) 10 mg Q6H PRN IV SBP >160 Last administered on 12/11/18 03:42; Admin Dose 10 MG; Start 11/25/18 at 14:00 Ondansetron HCl (Zofran Inj) 4 mg Q4H PRN IV NAUSEA AND/OR VOMITING Last administered on 11/29/18 01:10; Admin Dose 4 MG; Start 11/25/18 at 14:00 Insulin Glargine (Lantus) 10 units DAILY@0800 SC Last administered on 12/13/18at 10:59; Admin Dose 10 UNITS; Start 11/26/18 at 08:00 Insulin Aspart (Novolog Insulin Pen) NOVOLOG *MILD* ALGORI... Q4 SC Last administered on 12/13/18 12:09; Admin Dose 1 UNIT; Start 11/25/18 at 17:00 Albuterol/ Ipratropium (Duoneb) 3 ml Q6H RESP THERAPY PRN HHN SHORTNESS OF BREATH Last administered on 11/26/18at 20:17; Admin Dose 3 ML; Start 11/25/18 at 14:00 Acetaminophen (Tylenol Supp) 650 mg Q4H PRN [place] MILD PAIN(1-3) OR TEMP>38C Last administered on 12/02/18at 09:25; Admin Dose 650 MG; Start 11/25/18 at 14:00 Miscellaneous Information 1 ea NOTE XX ; Start 11/25/18 at 14:30 Glucose (Glutose) 15 gm Q15M PRN PO DECREASED GLUCOSE; Start 11/25/18 at 14:30 Glucose (Glutose) 22.5 gm Q15M PRN PO DECREASED GLUCOSE; Start 11/25/18 at 14:30 Dextrose (D50w Syringe) 25 ml Q15M PRN IV DECREASED GLUCOSE; Start 11/25/18 at 14:30 Dextrose (D50w Syringe) 50 ml Q15M PRN IV DECREASED GLUCOSE; Start 11/25/18 at 14:30 Glucagon (Glucagen) 1 mg Q15M PRN IM DECREASED GLUCOSE; Start 11/25/18 at 14:30 Glucose (Glutose) 15 gm Q15M PRN BUCCAL DECREASED GLUCOSE; Start 11/25/18 at 14:30 Budesonide (Pulmicort (Neb)) 0.5 mg BID RESP THERAPY HHN Last administered on 12/13/18 08:05; Admin Dose 0.5 MG; Start 11/26/18 at 09:00 IV Flush (NS 10 ml) 10 ml PRN PRN IV IV PROTOCOL; Start 11/26/18 at 14:00 Metoprolol Tartrate (Lopressor) 5 mg Q4H PRN IV HR>110 Hold SBP<100 Last administered on 12/04/18at 09:35; Admin Dose 5 MG; Start 11/26/18 at 18:00 Levothyroxine Sodium (Synthroid) 125 mcg DAILY@06 PO Last administered on 12/13/18 05:25; Admin Dose 125 MCG; Start 11/28/18 at 06:00 Albumin Human 100 ml @ 100 mls/hr DURING DIALYSIS PRN IV HYPOTENTION DURING HD Last administered on 12/03/18at 10:51; Admin Dose 100 MLS/HR; Start 11/27/18 at 20:30 Acetaminophen (Tylenol Liquid) 650 mg Q4H PRN PO MILD PAIN(1-3)OR ELEVATED TEMP Last administered on 11/28/18at 18:59; Admin Dose 650 MG; Start 11/28/18 at 16:00 Quetiapine Fumarate (Seroquel) 25 mg QHS PO Last administered on 12/12/18 22:23; Admin Dose 25 MG; Start 11/29/18 at 21:00 Pantoprazole (Protonix Tab) 40 mg DAILY@06 PO Last administered on 12/13/18 05:25; Admin Dose 40 MG; Start 11/30/18 at 06:00 Dextrose/Sodium Chloride 1,000 ml @ 40 mls/hr Q24H IV Last administered on 12/12/18 12:36; Admin Dose 40 MLS/HR; Start 11/30/18 at 12:30 Enalaprilat (Vasotec Iv) 1.25 mg Q2H PRN IV ELEVATED SYSTOLIC BP Last administered on 12/03/18 02:30; Admin Dose 1.25 MG; Start 12/03/18 at 00:30 Epoetin Kavon-epbx (RETACRIT(esrd)) 10,000 unit MoWeFr@1700 SC Last administered on 12/12/18 18:05; Admin Dose 10,000 UNIT; Start 12/03/18 at 17:00 Clonidine HCl (Catapres-Tts 2 Patch) 1 patch Q7D TRANSDERM Last administered on 12/10/18 13:14; Admin Dose 1 PATCH; Start 12/03/18 at 13:00 Docusate Sodium (Colace) 100 mg BID PRN PO CONSTIPATION; Start 12/05/18 at 19:00 Hydralazine HCl (Apresoline) 25 mg Q6H PRN PO high blood pressure Last administered on 12/10/18 22:41; Admin Dose 25 MG; Start 12/10/18 at 22:30 Polyethylene Glycol (Miralax) 17 gm DAILY PO Last administered on 12/12/18 08:42; Admin Dose 17 GM; Start 12/11/18 at 09:00 Quetiapine Fumarate (Seroquel) 12.5 mg Q6H PRN PO agitation; Start 12/11/18 at 16:00 Metoprolol Tartrate (Lopressor) 75 mg BID PO Last administered on 12/13/18 09:09; Admin Dose 75 MG; Start 12/12/18 at 21:00 CARMELO MAE December 13, 2018 14:08
--- NOTE | 2018-12-13 14:44 | CONS ---
Assessment/Plan Assessment/Plan Hospital Course 78 yo F with hx of ESRD on HD and other comorbidities who presents with ams in the context of respiratory sx. She was noted to be acutely encephalopathic following HD on 11/28, for which neurology is consulted. 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 MRI brain was technically limited, but was otherwise without obvious acute intracranial pathology. HCT on 11/25 was the same. EEG was without obvious epileptiform activity.. UA++ ammonia wnl, TSH nl, B12 ok P: [place] as able Change seroquel to 12.5 BID and 25mg hs Limit other sedating medications where possible Cont medical management and supportive care per primary Will follow clinically Consultation Date/Type/Reason Admit Date/Time Nov 25, 2018 at 13:18 Type of Consult Neurology Reason for Consultation ams Requesting Provider: GENNY SULLIVAN Date/Time of Note DATE: 12/13/18 TIME: 14:43 24 HR Interval Summary Free Text/Dictation Continues acute care. Pt reportedly agitated today, trying to climb out of bed and knock over IV poles. Exam Vital Signs Vitals Vital Signs Date Temp Pulse Resp B/P (MAP) Pulse Ox O2 O2 Flow FiO2 Time Delivery Rate 12/13/18 97 12:00 12/13/18 4.0 08:08 12/13/18 22 Nasal 08:08 Cannula 12/13/18 98.6 152/82 96 07:51 (105) 12/12/18 21 08:36 Intake and Output 12/12/18 12/12/18 12/13/18 1515:00 23:00 07:00 IntakeIntake Total 20 ml 480 ml 530 ml OutputOutput Total 50 ml 2430 ml 10 ml BalanceBalance -30 ml -1950 ml 520 ml Exam PE: Gen Appearance: Anxious, trying to climb out of bed HEENT: Normocephalic Cardiovascular: Regular rate Abdomen: Soft Extremities: Dry NE: The patient was awake, alert. Nonverbal at this time. Unable to direct/redirect. Fund of knowledge was unable to be assessed. Cranial nerve examination was limited by mental status. Pupils were equal and reactive to light. There was no afferent pupillary defect. Funduscopic examinati on was limited. Face was grossly symmetric, w/ present corneal and cough reflexes. Tone was normal. Muscle bulk was normal. I did not see fasciculations. The patient had symmetric movement of her extremities. Coordination and gait testing was limited by mental status. Arm and leg reflexes were within normal limits and symmetric. Lai's sign was absent. Plantar responses were flexor. NICHO HENDRIX NP December 13, 2018 14:44
[2018-12-13] MEDS: QUETIAPINE 25 MG TAB PO SCH ×2 (17:10→20:21)
[2018-12-13] MEDS: DILTIAZEM 30 MG TAB PO SCH (22:00)
--- NOTE | 2018-12-13 23:27 | PN ---
Date/Time of Note Date/Time of Note DATE: 12/13/18 TIME: 23:26 Assessment/Plan VTE Prophylaxis Risk score (from Nsg)>0 risk: 6 SCD applied (from Nsg): No Lines/Catheters IV Catheter Type (from Nrsg): Mid Line Urinary Cath still in place: Yes Assessment/Plan Result Diagram: 12/12/18 0714 12/12/18 0714 Results 24hrs Laboratory Tests Test 12/13/18 05:26 12/13/18 07:58 12/13/18 12:03 12/13/18 17:08 Bedside Glucose 142 143 165 163 Test 12/13/18 20:17 Bedside Glucose 159 Exam/Review of Systems Exam Vitals Vital Signs Date Temp Pulse Resp B/P (MAP) Pulse Ox O2 O2 Flow FiO2 Time Delivery Rate 12/13/18 95 20:52 12/13/18 4.0 20:43 12/13/18 20 97 Nasal 20:43 Cannula 12/13/18 98.7 175/112 20:00 (133) 12/12/18 21 08:36 Intake and Output 12/12/18 12/12/18 12/13/18 1515:00 23:00 07:00 IntakeIntake Total 20 ml 480 ml 530 ml OutputOutput Total 50 ml 2430 ml 10 ml BalanceBalance -30 ml -1950 ml 520 ml Results Results 24hrs Laboratory Tests Test 12/13/18 05:26 12/13/18 07:58 12/13/18 12:03 12/13/18 17:08 Bedside Glucose 142 143 165 163 Test 12/13/18 20:17 Bedside Glucose 159 Medications Medication Current Medications Hydralazine HCl (Apresoline) 10 mg Q6H PRN IV SBP >160 Last administered on 12/11/18at 03:42; Admin Dose 10 MG; Start 11/25/18 at 14:00 Ondansetron HCl (Zofran Inj) 4 mg Q4H PRN IV NAUSEA AND/OR VOMITING Last administered on 11/29/18at 01:10; Admin Dose 4 MG; Start 11/25/18 at 14:00 Insulin Glargine (Lantus) 10 units DAILY@0800 SC Last administered on 12/13/18at 10:59; Admin Dose 10 UNITS; Start 11/26/18 at 08:00 Insulin Aspart (Novolog Insulin Pen) NOVOLOG *MILD* ALGORI... Q4 SC Last admi nistered on 12/13/18 20:25; Admin Dose 1 UNIT; Start 11/25/18 at 17:00 Albuterol/ Ipratropium (Duoneb) 3 ml Q6H RESP THERAPY PRN HHN SHORTNESS OF BREATH Last administered on 11/26/18at 20:17; Admin Dose 3 ML; Start 11/25/18 at 14:00 Acetaminophen (Tylenol Supp) 650 mg Q4H PRN [place] MILD PAIN(1-3) OR TEMP>38C Last administered on 12/02/18 09:25; Admin Dose 650 MG; Start 11/25/18 at 14:00 Miscellaneous Information 1 ea NOTE XX ; Start 11/25/18 at 14:30 Glucose (Glutose) 15 gm Q15M PRN PO DECREASED GLUCOSE; Start 11/25/18 at 14:30 Glucose (Glutose) 22.5 gm Q15M PRN PO DECREASED GLUCOSE; Start 11/25/18 at 14:30 Dextrose (D50w Syringe) 25 ml Q15M PRN IV DECREASED GLUCOSE; Start 11/25/18 at 14:30 Dextrose (D50w Syringe) 50 ml Q15M PRN IV DECREASED GLUCOSE; Start 11/25/18 at 14:30 Glucagon (Glucagen) 1 mg Q15M PRN IM DECREASED GLUCOSE; Start 11/25/18 at 14:30 Glucose (Glutose) 15 gm Q15M PRN BUCCAL DECREASED GLUCOSE; Start 11/25/18 at 14:30 Budesonide (Pulmicort (Neb)) 0.5 mg BID RESP THERAPY HHN Last administered on 12/13/18at 20:43; Admin Dose 0.5 MG; Start 11/26/18 at 09:00 IV Flush (NS 10 ml) 10 ml PRN PRN IV IV PROTOCOL; Start 11/26/18 at 14:00 Metoprolol Tartrate (Lopressor) 5 mg Q4H PRN IV HR>110 Hold SBP<100 Last administered on 12/04/18at 09:35; Admin Dose 5 MG; Start 11/26/18 at 18:00 Levothyroxine Sodium (Synthroid) 125 mcg DAILY@06 PO Last administered on 12/13/18 05:25; Admin Dose 125 MCG; Start 11/28/18 at 06:00 Albumin Human 100 ml @ 100 mls/hr DURING DIALYSIS PRN IV HYPOTENTION DURING HD Last administered on 12/03/18 10:51; Admin Dose 100 MLS/HR; Start 11/27/18 at 20:30 Acetaminophen (Tylenol Liquid) 650 mg Q4H PRN PO MILD PAIN(1-3)OR ELEVATED TEMP Last administered on 11/28/18 18:59; Admin Dose 650 MG; Start 11/28/18 at 16:00 Quetiapine Fumarate (Seroquel) 25 mg QHS PO Last administered on 12/13/18 20:21; Admin Dose 25 MG; Start 11/29/18 at 21:00 Pantoprazole (Protonix Tab) 40 mg DAILY@06 PO Last administered on 12/13/18 05:25; Admin Dose 40 MG; Start 11/30/18 at 06:00 Dextrose/Sodium Chloride 1,000 ml @ 40 mls/hr Q24H IV Last administered on 12/12/18 12:36; Admin Dose 40 MLS/HR; Start 11/30/18 at 12:30 Enalaprilat (Vasotec Iv) 1.25 mg Q2H PRN IV ELEVATED SYSTOLIC BP Last administered on 12/03/18 02:30; Admin Dose 1.25 MG; Start 12/03/18 at 00:30 Epoetin Kavon-epbx (RETACRIT(esrd)) 10,000 unit MoWeFr@1700 SC Last administered on 12/12/18 18:05; Admin Dose 10,000 UNIT; Start 12/03/18 at 17:00 Clonidine HCl (Catapres-Tts 2 Patch) 1 patch Q7D TRANSDERM Last administered on 12/10/18 13:14; Admin Dose 1 PATCH; Start 12/03/18 at 13:00 Docusate Sodium (Colace) 100 mg BID PRN PO CONSTIPATION; Start 12/05/18 at 19:00 Hydralazine HCl (Apresoline) 25 mg Q6H PRN PO high blood pressure Last administered on 12/10/18 22:41; Admin Dose 25 MG; Start 12/10/18 at 22:30 Polyethylene Glycol (Miralax) 17 gm DAILY PO Last administered on 5/1/19at 08:42; Admin Dose 17 GM; Start 12/11/18 at 09:00 Metoprolol Tartrate (Lopressor) 75 mg BID PO Last administered on 12/13/18at 20:20; Admin Dose 75 MG; Start 12/12/18 at 21:00 Diltiazem HCl (Cardizem) 30 mg Q8 PO Last administered on 12/13/18at 22:00; Admin Dose 30 MG; Start 12/13/18 at 22:00 Quetiapine Fumarate (Seroquel) 12.5 mg BID WITH MEALS PO ; Start 12/13/18 at 17:55 JODI HANSON December 13, 2018 23:27
[2018-12-14] VITALS (23 sets, daily range): BP systolic 117–185; BP diastolic 53–89; PULSE 75–92; RESP 18–20
[2018-12-14] MEDS: INSULIN ASPART [NOVOLOG] 3 ML PEN SC SCH ×5 (01:27→16:29)
[2018-12-14] MEDS: DEXTROSE 5%-0.45% NACL 1,000 ML IV SCH (02:34)
[2018-12-14] MEDS: LEVOTHYROXINE 125 MCG TAB PO SCH (06:00)
[2018-12-14] MEDS: PANTOPRAZOLE (EC) 40 MG TAB PO SCH (06:00)
[2018-12-14] MEDS: DILTIAZEM 30 MG TAB PO SCH ×2 (06:00→13:06)
[2018-12-14] MEDS: INSULIN GLARGINE [LANTus] (100 UNITS/ML) SYG SC SCH (07:48)
[2018-12-14] MEDS ORDERED: MULTIVIT/CA CARB/B CMPLX/FA TAB PO SCH (09:00)
[2018-12-14] MEDS: POLYETHYLENE GLYCOL 17 GM PACKET PO SCH (09:01)
[2018-12-14] MEDS: QUETIAPINE 25 MG TAB PO SCH ×2 (09:01→17:24)
[2018-12-14] MEDS: METOPROLOL 50 MG TAB PO SCH (09:02)
--- NOTE | 2018-12-14 09:20 | PN ---
DATE: 12/14/2018 SUBJECTIVE: The patient is stable, no events overnight. OBJECTIVE: VITAL SIGNS: Blood pressure is 131/89, respirations 20, pulse 79, temperature 98.2. HEENT: Head is normocephalic. NECK: Supple. HEART: Regular rate. LUNGS: Show diminished breath sounds at the base. ABDOMEN: Soft, nontender to palpation without rebound or guarding. EXTREMITIES: Negative for clubbing, cyanosis, no edema. DERMATOLOGIC: No rashes. MUSCULOSKELETAL: No joint effusion. NEUROLOGIC: No change in exam. MEDICATIONS: Reviewed. LABORATORY DATA: Reviewed. ASSESSMENT AND PLAN: 1. Oligoanuric acute kidney injury on top of chronic kidney disease stage IV, now likely progressed towards end-stage renal disease. The patient is currently dialysis dependent. There are no signs of renal recovery. Continue intermittent dialysis. Plan is for dialysis today. The patient's outpati ent hemodialysis has been arranged at [facility]. 2. Anemia. Continue to monitor hemoglobin and hematocrit levels. Continue Epogen. 3. Mineral bone disorder. Monitor calcium and phosphorus levels. Continue phosphate binders. 4. Encephalopathy, etiology is toxic metabolic. Continue to monitor. 5. Coronary artery disease. Continue current medical management. 6. Diabetes. Continue current insulin regimen. 7. Hypothyroidism. Continue Synthroid. 8. History of atrial fibrillation. 9. Thrombocytopenia. Continue to monitor. 10. Hypertension. Continue current blood pressure regimen. 11. Tachyarrhythmia. Continue medical management. Follow up with cardiology. Dictated By: SUSY CISNEROS DO NR/NTS Conf#: [id number] DID#: [id number] CC: NEREIDA MCQUEEN MD; EVA LOPEZ MD;*EndCC*
[2018-12-14] MEDS: BUDESONIDE (NEB) 0.5MG/2ML AMP HHN SCH (09:25)
[2018-12-14] MEDS: SEVELAMER CARBONATE 800 MG TABLET PO SCH ×2 (11:50→17:24)
--- NOTE | 2018-12-14 12:08 | CONS ---
Assessment/Plan Assessment/Plan Hospital Course 78 yo F with hx of ESRD on HD and other comorbidities who presents with ams in the context of respiratory sx. She was noted to be acutely encephalopathic following HD on 11/28, for which neurology is consulted. 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 MRI brain was technically limited, but was otherwise without obvious acute intracranial pathology. HCT on 11/25 was the same. EEG was without obvious epileptiform activity.. UA++ ammonia wnl, TSH nl, B12 ok P: [place] as able Change seroquel to 12.5 BID and 25mg hs Limit other sedating medications where possible Cont medical management and supportive care per primary Will follow clinically Consultation Date/Type/Reason Admit Date/Time Nov 25, 2018 at 13:18 Type of Consult Neurology Reason for Consultation ams Requesting Provider: GENNY SULLIVAN Date/Time of Note DATE: 12/14/18 TIME: 12:08 24 HR Interval Summary Free Text/Dictation Continues acute care. Exam Vital Signs Vitals Vital Signs Date Temp Pulse Resp B/P (MAP) Pulse Ox O2 O2 Flow FiO2 Time Delivery Rate 12/14/18 20 Nasal 4.0 09:27 Cannula 12/14/18 90 08:22 12/14/18 98.3 185/81 93 08:09 (115) 12/12/18 21 08:36 Intake and Output 12/13/18 12/13/18 12/14/18 1515:00 23:00 07:00 IntakeIntake Total 425 ml 200 ml OutputOutput Total 240 ml 15 ml BalanceBalance 185 ml 185 ml Exam PE: Gen Appearance: Anxious, trying to climb out of bed HEENT: Normocephalic Cardiovascular: Regular rate Abdomen: Soft Extremities: Dry NE: The patient was awake, alert. Nonverbal at this time. Unable to direct/redirect. Fund of knowledge was unable to be assessed. Cranial nerve examination was limited by mental status. Pupils were equal and reactive to light. There was no afferent pupillary defect. Funduscopic exami nation was limited. Face was grossly symmetric, w/ present corneal and cough reflexes. Tone was normal. Muscle bulk was normal. I did not see fasciculations. The patient had symmetric movement of her extremities. Coordination and gait testing was limited by mental status. Arm and leg reflexes were within normal limits and symmetric. Lai's sign was absent. Plantar responses were flexor. NICHO HENDRIX NP December 14, 2018 12:08
--- NOTE | 2018-12-14 13:40 | CONS ---
Assessment/Plan Assessment/Plan Assessment/Plan (Daily) Hospital Course (Demo Recall) 78-year-old female with a history of hypertension, CHF, chronic kidney disease, diabetes mellitus, pulmonary embolism, status post surgery, atrial fibrillation admitted originally to [facility] for respiratory failure, transferred to [place]. At [place] pt was found to be hypotensive and transferred to [facility]. We were consulted for anemia and positive guaiac stool Interval hx: No signs of GI bleeding. No acute changes . Labs have not been drawn since 12/07. RN denies any evidence of GI bleeding. She is now on pureed diet with poor appetite. 1. Anemia due to the chronic gastrointestinal blood loss and also chronic disease. -Capsule endoscopy and EGD reports from [facility] are unremarkable. 2. Diabetes mellitus. 3. Thrombocytopenia. 4. Bronchial asthma. 5. Atrial fibrillation. 6. Acute on chronic renal failure, patient is on hemodialysis 7. Mildly elevated CEA at 6.6 8. Macrocytosis Plan Aspiration precautions Follow dietary recs Consider Iron supplementation Spoke with daughter Janee over phone who states family does not want a colonoscopy or another EGD. Pt needs colonoscopy since CEA elevated and positive FOB and personal history of hx of colon cancer Monitor HH and for active GI bleeding We will send for B12 and folic acid level Consultation Date/Type/Reason Admit Date/Time Nov 25, 2018 at 13:18 Initial Consult Date 11/26/18 Requesting Provider: GENNY SULLIVAN Date/Time of Note DATE: 12/14/18 TIME: 13:39 24 HR Interval Summary Constitutional: disoriented Exam/Review of Systems Exam Vitals Vital Signs Date Temp Pulse Resp B/P (MAP) Pulse Ox O2 O2 Flow FiO2 Time Delivery Rate 12/14/18 76 20 140/78 98 Nasal 4.0 12:30 (98) Cannula 12/14/18 98.3 08:09 12/12/18 21 08:36 Intake and Output 12/13/18 12/13/18 12/14/18 1515:00 23:00 07:00 IntakeIntake Total 425 ml 200 ml OutputOutput Total 240 ml 15 ml BalanceBalance 185 ml 185 ml Constitutional: alert, oriented, well developed Psych: no complaints, nl mood/affect Head: normocephalic, atraumatic Eyes: nl conjunctiva, EOMI, nl lids, nl sclera, PERRL ENMT: nl external ears & nose, nl lips & teeth, nl nasal mucosa & septum Neck: supple, non-tender Respiratory: clear to auscultation, normal air movement Cardiovascular: regular rate and rhythm, nl pulses Gastrointestinal: soft, nl liver, spleen, non-tender Musculoskeletal: nl extremities to inspection, nl gait and stance Extremities: normal pulses Neurological: 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 DIRECTOR II-XII intact, nl mental status, nl speech, nl strength Skin: nl turgor; No rash or lesions Lymph: nl lymph nodes Results Result Diagram: 12/12/18 0714 12/12/18 0714 Results 24hrs Laboratory Tests Test 12/13/18 17:08 12/13/18 20:17 12/14/18 01:24 12/14/18 06:18 Bedside Glucose 163 159 194 118 Test 12/14/18 07:44 12/14/18 12:24 Bedside Glucose 137 213 Medications Medication Current Medications Hydralazine HCl (Apresoline) 10 mg Q6H PRN IV SBP >160 Last administered on 12/11/18at 03:42; Admin Dose 10 MG; Start 11/25/18 at 14:00 Ondansetron HCl (Zofran Inj) 4 mg Q4H PRN IV NAUSEA AND/OR VOMITING Last administered on 11/29/18at 01:10; Admin Dose 4 MG; Start 11/25/18 at 14:00 Insulin Glargine (Lantus) 10 units DAILY@0800 SC Last administered on 12/14/18at 07:48; Admin Dose 10 UNITS; Start 11/26/18 at 08:00 Albuterol/ Ipratropium (Duoneb) 3 ml Q6H RESP THERAPY PRN HHN SHORTNESS OF BREATH Last administered on 11/26/18at 20:17; Admin Dose 3 ML; Start 11/25/18 at 14:00 Acetaminophen (Tylenol Supp) 650 mg Q4H PRN [place] MILD PAIN(1-3) OR TEMP>38C Last administered on 12/02/18at 09:25; Admin Dose 650 MG; Start 11/25/18 at 14:00 Miscellaneous Information 1 ea NOTE XX ; Start 11/25/18 at 14:30 Glucose (Glutose) 15 gm Q15M PRN PO DECREASED GLUCOSE; Start 11/25/18 at 14:30 Glucose (Glutose) 22.5 gm Q15M PRN PO DECREASED GLUCOSE; Start 11/25/18 at 14:30 Dextrose (D50w Syringe) 25 ml Q15M PRN IV DECREASED GLUCOSE; Start 11/25/18 at 14:30 Dextrose (D50w Syringe) 50 ml Q15M PRN IV DECREASED GLUCOSE; Start 11/25/18 at 14:30 Glucagon (Glucagen) 1 mg Q15M PRN IM DECREASED GLUCOSE; Start 11/25/18 at 14:30 Glucose (Glutose) 15 gm Q15M PRN BUCCAL DECREASED GLUCOSE; Start 11/25/18 at 14:30 Budesonide (Pulmicort (Neb)) 0.5 mg BID RESP THERAPY HHN Last administered on 12/14/18 09:25; Admin Dose 0.5 MG; Start 11/26/18 at 09:00 IV Flush (NS 10 ml) 10 ml PRN PRN IV IV PROTOCOL; Start 11/26/18 at 14:00 Metoprolol Tartrate (Lopressor) 5 mg Q4H PRN IV HR>110 Hold SBP<100 Last administered on 12/04/18 09:35; Admin Dose 5 MG; Start 11/26/18 at 18:00 Levothyroxine Sodium (Synthroid) 125 mcg DAILY@06 PO Last administered on 12/13/18 05:25; Admin Dose 125 MCG; Start 11/28/18 at 06:00 Albumin Human 100 ml @ 100 mls/hr DURING DIALYSIS PRN IV HYPOTENTION DURING HD Last administered on 12/03/18 10:51; Admin Dose 100 MLS/HR; Start 11/27/18 at 20:30 Acetaminophen (Tylenol Liquid) 650 mg Q4H PRN PO MILD PAIN(1-3)OR ELEVATED TEMP Last administered on 11/28/18 18:59; Admin Dose 650 MG; Start 11/28/18 at 16:00 Quetiapine Fumarate (Seroquel) 25 mg QHS PO Last administered on 12/13/18 20:21; Admin Dose 25 MG; Start 11/29/18 at 21:00 Pantoprazole (Protonix Tab) 40 mg DAILY@06 PO Last administered on 12/13/18 05:25; Admin Dose 40 MG; Start 11/30/18 at 06:00 Dextrose/Sodium Chloride 1,000 ml @ 40 mls/hr Q24H IV Last administered on 12/14/18 02:34; Admin Dose 40 MLS/HR; Start 11/30/18 at 12:30 Enalaprilat (Vasotec Iv) 1.25 mg Q2H PRN IV ELEVATED SYSTOLIC BP Last administered on 12/03/18 02:30; Admin Dose 1.25 MG; Start 12/03/18 at 00:30 Epoetin Kavon-epbx (RETACRIT(esrd)) 10,000 unit MoWeFr@1700 SC Last administered on 12/12/18 18:05; Admin Dose 10,000 UNIT; Start 12/03/18 at 17:00 Clonidine HCl (Catapres-Tts 2 Patch) 1 patch Q7D TRANSDERM Last administered on 12/10/18 13:14; Admin Dose 1 PATCH; Start 12/03/18 at 13:00 Docusate Sodium (Colace) 100 mg BID PRN PO CONSTIPATION; Start 12/05/18 at 19:00 Hydralazine HCl (Apresoline) 25 mg Q6H PRN PO high blood pressure Last administered on 12/10/18 22:41; Admin Dose 25 MG; Start 12/10/18 at 22:30 Polyethylene Glycol (Miralax) 17 gm DAILY PO Last administered on 12/14/18 09:01; Admin Dose 17 GM; Start 12/11/18 at 09:00 Metoprolol Tartrate (Lopressor) 75 mg BID PO Last administered on 12/14/18 09:02; Admin Dose 75 MG; Start 12/12/18 at 21:00 Diltiazem HCl (Cardizem) 30 mg Q8 PO Last administered on 12/13/18 22:00; Admin Dose 30 MG; Start 12/13/18 at 22:00 Quetiapine Fumarate (Seroquel) 12.5 mg BID WITH MEALS PO Last administered on 12/14/18 09:01; Admin Dose 12.5 MG; Start 12/13/18 at 17:55 Insulin Aspart (Novolog Insulin Pen) NOVOLOG *MILD* ALGORITHM WITH MEALS BEDTIME SC Last administered on 12/14/18 12:28; Admin Dose 2 UNIT; Start 12/14/18 at 07:55 Multivit/Ca Carb/ B Cmplx/FA/Prenat (Lalita-Romain) 1 tab DAILY PO Last administered on 12/14/18at 09:02; Admin Dose 1 TAB; Start 12/14/18 at 09:00 Sevelamer Carbonate (Renvela) 800 mg WITH MEALS PO ; Start 12/14/18 at 11:50 KASANDRA FLOYD MD December 14, 2018 13:39
--- NOTE | 2018-12-14 14:39 | CONS ---
Assessment/Plan Assessment/Plan Hospital Course (Demo Recall) IMPRESSION: 1. Hypotension-overall improved and not on pressors currently and now HTN requiring medications 2. Atrial fibrillation, primarily rate controlled off of antihypertensives at this time. 3. Anemia, worsening with guaiac positive stool consistent with gastrointestinal bleed. 4. Diabetes mellitus. 5. Acute on chronic renal failure,now on hemodialysis. 6. Altered mental state. 7. Diastolic congestive heart failure due to a preserved EF by most recent echo and findings by chest x-ray. 8. History of coronary artery disease, nonobstructive by outside hospital catheterization. 9. Shortness of breath with hypothyroidism. 10. Diabetes mellitus. 11.UTI Recc: -Continue BB with slight increase/clonidine TTS and now CCB -s/p dose digoxin IVP to assure good HR control -HD for volume removal -Follow HR/rhythm closely -not on anticoagulation secondary to GIB/anemia requiring transfusion -to undergo endoscopy? but family refusing Consultation Date/Type/Reason Admit Date/Time Nov 25, 2018 at 13:18 Initial Consult Date 11/26/18 Type of Consult Cardiology Reason for Consultation Hotn Requesting Provider: GENNY SULLIVAN Date/Time of Note DATE: 12/14/18 TIME: 14:38 Exam/Review of Systems Vital Signs Vitals Vital Signs Date Temp Pulse Resp B/P (MAP) Pulse Ox O2 O2 Flow FiO2 Time Delivery Rate 12/14/18 90 14:30 12/14/18 20 140/78 98 Nasal 4.0 12:30 (98) Cannula 12/14/18 98.3 12:09 12/12/18 21 08:36 Intake and Output 12/13/18 12/13/18 12/14/18 1414:59 22:59 06:59 IntakeIntake Total 425 ml 200 ml OutputOutput Total 240 ml 15 ml BalanceBalance 185 ml 185 ml Exam Exam Review of Systems: CONSTITUTIONAL: No fevers, chills. PULMONARY: No sob CARDIOVASCULAR: No chest pain/palpitations GASTROINTESTINAL: No nausea/vomiting. GENITOURINARY: No hematuria/dysuria. MUSCULOSKELETAL: No myagias/arthalgias. PSYCHIATRIC: The patient denies depression. NEUROLOGIC: No weakness Constitutional: alert Psych: no complaints Head: normocephalic ENMT: mucosa pink and moist Neck: supple, jvd (9 cm water) Respiratory: diminished breath sounds Cardiovascular: irregular rhythm Gastrointestinal: soft, non-tender Musculoskeletal: muscle weakness (generaliozed) Extremities: pitting pedal edema (bilateral) Neurological: other (No focal deficits) Labs Result Diagram: 12/12/1814 12/12/1814 Results 24hrs Laboratory Tests Test 12/13/18 17:08 12/13/18 20:17 12/14/18 01:24 12/14/18 06:18 Bedside Glucose 163 159 194 118 Test 12/14/18 07:44 12/14/18 12:24 Bedside Glucose 137 213 Medications Medications Current Medications Hydralazine HCl (Apresoline) 10 mg Q6H PRN IV SBP >160 Last administered on 12/11/18at 03:42; Admin Dose 10 MG; Start 11/25/18 at 14:00 Ondansetron HCl (Zofran Inj) 4 mg Q4H PRN IV NAUSEA AND/OR VOMITING Last administered on 11/29/18at 01:10; Admin Dose 4 MG; Start 11/25/18 at 14:00 Insulin Glargine (Lantus) 10 units DAILY@0800 SC Last administered on 12/14/18at 07:48; Admin Dose 10 UNITS; Start 11/26/18 at 08:00 Albuterol/ Ipratropium (Duoneb) 3 ml Q6H RESP THERAPY PRN HHN SHORTNESS OF BREATH Last administered on 11/26/18at 20:17; Admin Dose 3 ML; Start 11/25/18 at 14:00 Acetaminophen (Tylenol Supp) 650 mg Q4H PRN [place] MILD PAIN(1-3) OR TEMP>38C Last administered on 12/02/18at 09:25; Admin Dose 650 MG; Start 11/25/18 at 14:00 Miscellaneous Information 1 ea NOTE XX ; Start 11/25/18 at 14:30 Glucose (Glutose) 15 gm Q15M PRN PO DECREASED GLUCOSE; Start 11/25/18 at 14:30 Glucose (Glutose) 22.5 gm Q15M PRN PO DECREASED GLUCOSE; Start 11/25/18 at 14:30 Dextrose (D50w Syringe) 25 ml Q15M PRN IV DECREASED GLUCOSE; Start 11/25/18 at 14:30 Dextrose (D50w Syringe) 50 ml Q15M PRN IV DECREASED GLUCOSE; Start 11/25/18 at 14:30 Glucagon (Glucagen) 1 mg Q15M PRN IM DECREASED GLUCOSE; Start 11/25/18 at 14:30 Glucose (Glutose) 15 gm Q15M PRN BUCCAL DECREASED GLUCOSE; Start 11/25/18 at 14:30 Budesonide (Pulmicort (Neb)) 0.5 mg BID RESP THERAPY HHN Last administered on 12/14/18 09:25; Admin Dose 0.5 MG; Start 11/26/18 at 09:00 IV Flush (NS 10 ml) 10 ml PRN PRN IV IV PROTOCOL; Start 11/26/18 at 14:00 Metoprolol Tartrate (Lopressor) 5 mg Q4H PRN IV HR>110 Hold SBP<100 Last admi nistered on 12/04/18 09:35; Admin Dose 5 MG; Start 11/26/18 at 18:00 Levothyroxine Sodium (Synthroid) 125 mcg DAILY@06 PO Last administered on 12/13/18 05:25; Admin Dose 125 MCG; Start 11/28/18 at 06:00 Albumin Human 100 ml @ 100 mls/hr DURING DIALYSIS PRN IV HYPOTENTION DURING HD Last administered on 12/03/18 10:51; Admin Dose 100 MLS/HR; Start 11/27/18 at 20:30 Acetaminophen (Tylenol Liquid) 650 mg Q4H PRN PO MILD PAIN(1-3)OR ELEVATED TEMP Last administered on 11/28/18at 18:59; Admin Dose 650 MG; Start 11/28/18 at 16:00 Quetiapine Fumarate (Seroquel) 25 mg QHS PO Last administered on 12/13/18 20:21; Admin Dose 25 MG; Start 11/29/18 at 21:00 Pantoprazole (Protonix Tab) 40 mg DAILY@06 PO Last administered on 12/13/18 05:25; Admin Dose 40 MG; Start 11/30/18 at 06:00 Dextrose/Sodium Chloride 1,000 ml @ 40 mls/hr Q24H IV Last administered on 12/14/18 02:34; Admin Dose 40 MLS/HR; Start 11/30/18 at 12:30 Enalaprilat (Vasotec Iv) 1.25 mg Q2H PRN IV ELEVATED SYSTOLIC BP Last administ ered on 12/03/18 02:30; Admin Dose 1.25 MG; Start 12/03/18 at 00:30 Epoetin Kavon-epbx (RETACRIT(esrd)) 10,000 unit MoWeFr@1700 SC Last administered on 12/12/18 18:05; Admin Dose 10,000 UNIT; Start 12/03/18 at 17:00 Clonidine HCl (Catapres-Tts 2 Patch) 1 patch Q7D TRANSDERM Last administered on 12/10/18 13:14; Admin Dose 1 PATCH; Start 12/03/18 at 13:00 Docusate Sodium (Colace) 100 mg BID PRN PO CONSTIPATION; Start 12/05/18 at 19:00 Hydralazine HCl (Apresoline) 25 mg Q6H PRN PO high blood pressure Last administered on 12/10/18 22:41; Admin Dose 25 MG; Start 12/10/18 at 22:30 Polyethylene Glycol (Miralax) 17 gm DAILY PO Last administered on 12/14/18 09:01; Admin Dose 17 GM; Start 12/11/18 at 09:00 Metoprolol Tartrate (Lopressor) 75 mg BID PO Last administered on 12/14/18 09:02; Admin Dose 75 MG; Start 12/12/18 at 21:00 Diltiazem HCl (Cardizem) 30 mg Q8 PO Last administered on 12/13/18 22:00; Admin Dose 30 MG; Start 12/13/18 at 22:00 Quetiapine Fumarate (Seroquel) 12.5 mg BID WITH MEALS PO Last administered on 12/14/18 09:01; Admin Dose 12.5 MG; Start 12/13/18 at 17:55 Insulin Aspart (Novolog Insulin Pen) NOVOLOG *MILD* ALGORITHM WITH MEALS BEDTIME SC Last administered on 12/14/18 12:28; Admin Dose 2 UNIT; Start 12/14/18 at 07:55 Multivit/Ca Carb/ B Cmplx/FA/Prenat (Lalita-Romain) 1 tab DAILY PO Last administered on 12/14/18 09:02; Admin Dose 1 TAB; Start 12/14/18 at 09:00 Sevelamer Carbonate (Renvela) 800 mg WITH MEALS PO ; Start 12/14/18 at 11:50 CARMELO MAE December 14, 2018 14:39
[2018-12-14] MEDS: EPOETIN ALFA-EPBX (ESRD) 10,000 UNIT/ML VIAL SC SCH (16:31)
== END 2018-12-14 18:28 | DRG 291 ==
LOC: ICU 13:18 → TEL 11-29 06:55
PROVIDERS: ADMIT Internal Medicine; ATTEND Internal Medicine
PROC: 02HV33Z Insertion of Infusion Device into Superior Vena Cava, Percutaneous Approach (ICD-10-PCS; 2018-11-26)
PROC: 30233N1 Transfusion of Nonautologous Red Blood Cells into Peripheral Vein, Percutaneous Approach (ICD-10-PCS; 2018-11-26)
PROC: 06HY33Z Insertion of Infusion Device into Lower Vein, Percutaneous Approach (ICD-10-PCS; principal; 2018-11-27)
PROC: 5A1D70Z Performance of Urinary Filtration, Intermittent, Less than 6 Hours Per Day (ICD-10-PCS; 2018-11-27)
PROC: 0JH63XZ Insertion of Tunneled Vascular Access Device into Chest Subcutaneous Tissue and Fascia, Percutaneous Approach (ICD-10-PCS; 2018-12-07)
PROC: 02H633Z Insertion of Infusion Device into Right Atrium, Percutaneous Approach (ICD-10-PCS; 2018-12-07)
DX: I13.2 Hypertensive heart and chronic kidney disease with heart failure and with stage 5 chronic kidney disease, or end stage renal disease (principal); I50.33 Acute on chronic diastolic (congestive) heart failure; N17.0 Acute kidney failure with tubular necrosis; N18.6 End stage renal disease; G93.41 Metabolic encephalopathy; E87.2 Acidosis; N39.0 Urinary tract infection, site not specified; K92.2 Gastrointestinal hemorrhage, unspecified; I95.9 Hypotension, unspecified; D69.6 Thrombocytopenia, unspecified; D63.1 Anemia in chronic kidney disease; D72.829 Elevated white blood cell count, unspecified; D50.0 Iron deficiency anemia secondary to blood loss (chronic); E11.22 Type 2 diabetes mellitus with diabetic chronic kidney disease; E03.9 Hypothyroidism, unspecified; E78.5 Hyperlipidemia, unspecified; I48.2 Chronic atrial fibrillation; I25.10 Atherosclerotic heart disease of native coronary artery without angina pectoris; J45.909 Unspecified asthma, uncomplicated; K21.9 Gastro-esophageal reflux disease without esophagitis; R06.02 Shortness of breath; E66.9 Obesity, unspecified; Z68.34 Body mass index [BMI] 34.0-34.9, adult; Z85.038 Personal history of other malignant neoplasm of large intestine; Z90.49 Acquired absence of other specified parts of digestive tract; Z99.2 Dependence on renal dialysis; Z86.711 Personal history of pulmonary embolism; Z79.4 Long term (current) use of insulin; Z79.02 Long term (current) use of antithrombotics/antiplatelets; Z79.82 Long term (current) use of aspirin
CPT/HCPCS: 36430; 36569; 70450; 70551; 71045; 76937; 80048; 80053; 81001; 81003; 82043; 82140; 82270; 82378; 82550; 82553; 82607; 82728; 82962; 83540; 83735; 84100; 84155; 84300; 84443; 84484; 85025; 85730; 86706; 86850; 86900; 86901; 86920; 87081; 87340; 90935; 92526; 92610; 93005; 94640; 94664; 95819; 97110; 97116; 97162; 97167; 97530; 97535; J0131; J0360; J1630; J1644; J1815; J2060; J2250; J2370; J2405; J2916; J2997; J7040; J7042; P9016; P9047; Q5105

== ENCOUNTER 2018-12-14 18:28 | Inpatient (IN) | payer MEDICARE, OTHER ==
[~2018-12-14] VITALS: Ht 154.9 cm; Wt 71.0 kg
[~2018-12-14 18:28] MED LIST: ALPR0.254 PO; AMLO-147 PO; ASPI-817 PO; ATOR20TA38 PO; BISA-34 PO; CARV3.1260 PO; CLON0.2T5 PO; CLON1PAT2 TD; CLOP75TA19 PO; DOCU250C58 PO; DRON400T2 PO; ERGO500013 PO; FAMO20TA18 PO; FER325 PO; FURO40TA4 PO; GABA300C16 PO; HYDR-3672 PO; INSU100C3 SQ; INSU100I33 SC; LEVO125T7 PO; LISI-313 PO; LOSA50TA14 PO; MAGN400T27 PO; POTA8CAP PO
[2018-12-14] MEDS ORDERED: PENDING SANTYL ORDER FOR WOUND CARE XX PRN (19:00)
[2018-12-14 20:17] VITALS: BP 139/63; PULSE 103; RESP 18
[2018-12-14 21:00] VITALS: Ht 154.9 cm; Wt 71.0 kg
[2018-12-14] MEDS ORDERED: ALBUMIN HUMAN 25% 100 ML IV PRN (22:00)
[2018-12-14] MEDS ORDERED: ENALAPRILAT 1.25 MG INJ IV PRN (22:00)
[2018-12-14] MEDS ORDERED: DOCUSATE SODIUM 100 MG CAP PO PRN (22:00)
[2018-12-14] MEDS ORDERED: ALBUTEROL/IPRATROPIUM (NEB) 3 ML AMP HHN PRN (22:00)
[2018-12-14] MEDS ORDERED: ACETAMINOPHEN 650MG/20.3ML CUP PO PRN (22:00)
[2018-12-14] MEDS ORDERED: ACETAMINOPHEN 650 MG SUPP PR PRN (22:00)
[2018-12-14] MEDS: BUDESONIDE (NEB) 0.5MG/2ML AMP HHN SCH (22:00)
[2018-12-14] MEDS ORDERED: GLUCOSE GEL 15 GRAM TUBE BUCCAL PRN (22:30)
[2018-12-14] MEDS ORDERED: hydrALAzine 20 MG INJ IV PRN (22:30)
[2018-12-14] MEDS ORDERED: GLUCAGON 1 MG INJ IM PRN (22:30)
[2018-12-14] MEDS ORDERED: GLUCOSE GEL 15 GRAM TUBE PO PRN ×2 (22:30)
[2018-12-14] MEDS ORDERED: ONDANSETRON 4 MG INJ IV PRN (22:30)
[2018-12-14] MEDS ORDERED: DEXTROSE 50% 50 ML SYRINGE IV PRN ×2 (22:30)
[2018-12-14] MEDS: QUETIAPINE 25 MG TAB PO SCH (22:45)
[2018-12-14] MEDS: METOPROLOL 25 MG TAB PO SCH (22:46)
[2018-12-14] MEDS: DILTIAZEM 30 MG TAB PO SCH (22:46)
[2018-12-14] MEDS: INSULIN ASPART [NOVOLOG] 3 ML PEN SC SCH (23:33)
[2018-12-15] MEDS ORDERED: LORAZEPAM 2 MG INJ IV ONE (02:30)
[2018-12-15 02:47] VITALS: BP 146/66; PULSE 74; RESP 19
[2018-12-15] MEDS: PANTOPRAZOLE (EC) 40 MG TAB PO SCH (07:07)
[2018-12-15] MEDS: LEVOTHYROXINE 125 MCG TAB PO SCH (07:07)
[2018-12-15] MEDS: DILTIAZEM 30 MG TAB PO SCH ×3 (07:07→22:00)
[2018-12-15] MEDS: INSULIN ASPART [NOVOLOG] 3 ML PEN SC SCH ×4 (07:35→20:21)
[2018-12-15] MEDS: SEVELAMER CARBONATE 800 MG TABLET PO SCH ×3 (07:35→17:54)
[2018-12-15] MEDS: QUETIAPINE 25 MG TAB PO SCH ×3 (07:35→20:23)
[2018-12-15 08:00] VITALS: BP 135/65; PULSE 78; RESP 18
[2018-12-15] MEDS: INSULIN GLARGINE [LANTus] (100 UNITS/ML) SYG SC SCH (08:00)
[2018-12-15] MEDS: METOPROLOL 25 MG TAB PO SCH ×2 (09:00→20:23)
[2018-12-15] MEDS: MULTIVIT/CA CARB/B CMPLX/FA TAB PO SCH (09:00)
[2018-12-15] MEDS: POLYETHYLENE GLYCOL 17 GM PACKET PO SCH (09:00)
[2018-12-15] MEDS: BUDESONIDE (NEB) 0.5MG/2ML AMP HHN SCH ×2 (09:57→19:27)
--- NOTE | 2018-12-15 12:39 | CONS ---
Assessment/Plan Assessment/Plan Hospital Course (Demo Recall) 1. Oligoanuric acute kidney injury on top of chronic kidney disease stage IV, now likely progressed towards end-stage renal disease. The patient is currently dialysis dependent. There are no signs of renal recovery. will do HD Monday. 2. Anemia. Continue to monitor hemoglobin and hematocrit levels. Continue Epogen. 3. Mineral bone disorder. Monitor calcium and phosphorus levels. Continue phosphate binders. 4. Encephalopathy, etiology is toxic metabolic. improving. monitor 5. Coronary artery disease. Continue current medical management. 6. Diabetes. Continue current insulin regimen. 7. Hypothyroidism. Continue Synthroid. 8. History of atrial fibrillation. 9. Thrombocytopenia. Continue to monitor. 10. Hypertension. Continue current blood pressure regimen. Consultation Date/Type/Reason Admit Date/Time December 14, 2018 at 18:28 Date/Time of Note DATE: 12/15/18 TIME: 12:37 Hx of Present Illness HISTORY OF PRESENT ILLNESS: This is a 78-year-old female with a past medical history of hypertension, congestive heart failure, asthma, history of chronic kidney disease, history of diabetes, history of pulmonary embolism, colon cancer, history of atrial fibrillation, who was at [facility] for worsening renal function and uremia. She was started on HD and tolerated it well. She is currently dependent on HD without any signs of renal recovery. Her last HD was Monday prior to transfer. Denies shortness of breath, or n/v. PAST MEDICAL HISTORY: As stated above, history of chronic kidney disease, hypertension, congestive heart failure, history of asthma, history of pulmonary embolism, history of colon cancer. PAST SURGICAL HISTORY: Status post colon resection. FAMILY HISTORY: Noncontributory. SOCIAL HISTORY: Lives at home. ALLERGIES: NO KNOWN DRUG ALLERGIES. REVIEW OF SYSTEMS: a full 10pt ROS was obtained and is negative other than what is stated in the hpi PHYSICAL EXAMINATION: VITAL SIGNS reviewed in EMR HEENT: Head is normocephalic. NECK: Supple. HEART: Regular rate. LUNGS: Show diminished breath sounds at the base. ABDOMEN: Soft, nontender to palpation without rebound or guarding. EXTREMITIES: Negative for clubbing, cyanosis. Trace edema. DERMATOLOGIC: No rashes. MUSCULOSKELETAL: No joint effusion. NEUROLOGIC: Limited exam due to patient as the patient is obtunded. Past Medical History Home Meds Reported Medications Alprazolam* (Alprazolam*) 0.25 Mg Tablet, 0.25 MG PO NEEDED PRN for ANXIETY, TAB 11/26/18 Magnesium Oxide* (Mag-Oxide*) 400 Mg Tablet, 400 MG PO BID, TAB 11/26/18 Losartan Potassium* (Losartan Potassium*) 50 Mg Tablet, 50 MG PO BID PRN for NEEDED, TAB 11/26/18 Atorvastatin Calcium* (Atorvastatin Calcium*) 20 Mg Tablet, 20 MG PO QHS, #30 TAB 11/26/18 Potassium Chloride* (Potassium Chloride*) 8 Meq Capsule.er, 8 MEQ PO DAILY, CAP 11/26/18 Dronedarone Hydrochloride* (Multaq*) 400 Mg Tablet, 400 MG PO BID, TAB 11/26/18 Insulin Aspart (Novolog) 100 Unit/1 Ml Cartridge, 8 UNIT SQ AC BREAKFAST DINNER 11/26/18 Clopidogrel Bisulfate* (Clopidogrel Bisulfate*) 75 Mg Tablet, 75 MG PO DAILY, #30 TAB 11/26/18 Carvedilol* (Carvedilol*) 3.125 Mg Tablet, 3.125 MG PO BID, #60 TAB 11/26/18 Gabapentin* (Gabapentin*) 300 Mg Capsule, 300 MG PO DAILY, #60 CAP NEEDED 11/26/18 Aspirin* (Aspirin* EC) 81 Mg Tablet.dr, 81 MG PO DAILY, TAB 11/26/18 Amlodipine Besylate* (Amlodipine Besylate*) 10 Mg Tablet, 10 MG PO DAILY, #30 TAB TAKE NEEDED 11/26/18 Famotidine* (Famotidine*) 20 Mg Tablet, 20 MG PO BID, #30 TAB 11/26/18 Furosemide* (Furosemide*) 40 Mg Tablet, 40 MG PO BID, TAB 11/26/18 Levothyroxine Sodium* (Levothyroxine Sodium*) 125 Mcg Tablet, 125 MCG PO BEFORE BREAKFAST, #30 TAB 11/26/18 Bisacodyl (Ducodyl) 5 Mg Tablet.dr, 5 MG PO NEEDED 11/26/18 Ergocalciferol (Vitamin D2) (VITAMIN D2) 50,000 Unit Capsule, 79674 UNIT PO Q SAT, CAP 11/26/18 Lisinopril* (Lisinopril*) 5 Mg Tablet, 5 MG PO DAILY, #30 TAB TAKE NEEDED 11/26/18 Clonidine Hcl* (Clonidine Hcl*) 0.2 Mg Tablet, 0.2 MG PO BID PRN for HTN, TAB 11/26/18 Clonidine Patch (CLONIDINE PATCH) 0.2 Mg/24 Hr Patch, 1 PATCH.WK TD Q7D, #4 PATCH.WK 11/26/18 Hydralazine Hcl* (Apresoline*) 50 Mg Tab, 50 MG PO BID PRN for HTN, #60 TAB TAKE NEEDED 11/26/18 Insulin Glargine,Hum.rec.anlog (Basaglar Kwikpen U-100) 100 Unit/1 Ml Insuln.pen, 40 UNIT SC QHS, EA 11/26/18 Docusate Sodium* (Colace*) 250 Mg Capsule, 250 MG PO BID, #60 CAP 11/26/18 Ferrous Sulfate* (Ferrous Sulfate*) 325 Mg Tabec, 325 MG PO BID, TAB 11/26/18 Medications Current Medications Miscellaneous Information (Pending Santyl Order For Wound Care) This patient miles... PRN PRN XX WOUND CARE; Start 12/14/18 at 19:00 Acetaminophen (Tylenol Supp) 650 mg Q4H PRN [place] MILD PAIN(1-3) OR TEMP>38C; Start 12/14/18 at 22:00 Acetaminophen (Tylenol Liquid) 650 mg Q4H PRN PO MILD PAIN(1-3)OR ELEVATED TEMP Last administered on 12/14/18at 23:58; Admin Dose 650 MG; Start 12/14/18 at 22:00 Albumin Human 100 ml @ 100 mls/hr DURING DIALYSIS PRN IV HYPOTENTION DURING HD; Start 12/14/18 at 22:00 Albuterol/ Ipratropium (Duoneb) 3 ml Q6H RESP THERAPY PRN HHN SHORTNESS OF BREATH; Start 12/14/18 at 22:00 Budesonide (Pulmicort (Neb)) 0.5 mg BID RESP THERAPY HHN Last administered on 12/15/18at 09:57; Admin Dose 0.5 MG; Start 12/14/18 at 22:00 Clonidine HCl (Catapres-Tts 2 Patch) 1 patch Q7D TRANSDERM ; Start 12/17/18 at 13:00 Diltiazem HCl (Cardizem) 30 mg Q8 PO Last administered on 12/15/18at 07:07; Admin Dose 30 MG; Start 12/14/18 at 23:00 Docusate Sodium (Colace) 100 mg BID PRN PO CONSTIPATION; Start 12/14/18 at 22:00 Epoetin Kavon-epbx (RETACRIT(esrd)) 10,000 unit MoWeFr@1700 SC ; Start 12/17/18 at 17:00 Hydralazine HCl (Apresoline) 10 mg Q6H PRN IV SBP >160; Start 12/14/18 at 22:30 Hydralazine HCl (Apresoline) 25 mg Q6H PRN PO high blood pressure; Start 12/14/18 at 22:30 Insulin Aspart (Novolog Insulin Pen) NOVOLOG *MILD* ALGORITHM WITH MEALS BEDTIME SC Last administered on 12/14/18at 23:33; Admin Dose 2 UNIT; Start 12/14/18 at 23:00 Insulin Glargine (Lantus) 10 units DAILY@0800 SC ; Start 12/15/18 at 08:00 Levothyroxine Sodium (Synthroid) 125 mcg DAILY@06 PO Last administered on 12/15/18at 07:07; Admin Dose 125 MCG; Start 12/15/18 at 06:00 Metoprolol Tartrate (Lopressor) 75 mg BID PO Last administered on 12/14/18at 22:46; Admin Dose 75 MG; Start 12/14/18 at 22:30 Multivit/Ca Carb/ B Cmplx/FA/Prenat (Lalita-Romain) 1 tab DAILY PO ; Start 12/15/18 at 09:00 Ondansetron HCl (Zofran Inj) 4 mg Q4H PRN IV NAUSEA AND/OR VOMITING; Start 12/14/18 at 22:30 Pantoprazole (Protonix Tab) 40 mg DAILY@06 PO Last administered on 12/15/18at 07:07; Admin Dose 40 MG; Start 12/15/18 at 06:00 Polyethylene Glycol (Miralax) 17 gm DAILY PO ; Start 12/15/18 at 09:00 Quetiapine Fumarate (Seroquel) 25 mg QHS PO Last administered on 12/14/18at 22:45; Admin Dose 25 MG; Start 12/14/18 at 22:30 Quetiapine Fumarate (Seroquel) 12.5 mg BID WITH MEALS PO ; Start 12/15/18 at 0 7:35 IV Flush (NS 10 ml) 10 ml PRN PRN IV IV PROTOCOL; Start 12/14/18 at 22:30 Sevelamer Carbonate (Renvela) 800 mg WITH MEALS PO ; Start 12/15/18 at 07:35 Miscellaneous Information 1 ea NOTE XX ; Start 12/14/18 at 22:30 Glucose (Glutose) 15 gm Q15M PRN PO DECREASED GLUCOSE; Start 12/14/18 at 22:30 Glucose (Glutose) 22.5 gm Q15M PRN PO DECREASED GLUCOSE; Start 12/14/18 at 22:30 Dextrose (D50w Syringe) 25 ml Q15M PRN IV DECREASED GLUCOSE; Start 12/14/18 at 22:30 Dextrose (D50w Syringe) 50 ml Q15M PRN IV DECREASED GLUCOSE; Start 12/14/18 at 22:30 Glucagon (Glucagen) 1 mg Q15M PRN IM DECREASED GLUCOSE; Start 12/14/18 at 22:30 Glucose (Glutose) 15 gm Q15M PRN BUCCAL DECREASED GLUCOSE; Start 12/14/18 at 22:30 Allergies: Coded Allergies: No Known Allergy (Unverified , 11/26/18) Social History Smoking Status: Never smoker Exam/Review of Systems Exam Vitals Vital Signs Date Temp Pulse Resp B/P (MAP) Pulse Ox O2 O2 Flow FiO2 Time Delivery Rate 12/15/18 98.2 78 18 135/65 96 Room Air 08:00 (88) 12/15/18 2.0 05:00 Intake and Output 12/14/18 12/14/18 12/15/18 1515:00 23:00 07:00 IntakeIntake Total 20 ml BalanceBalance 20 ml Results Result Diagram: 12/15/18 0642 12/15/18 0642 Results 24hrs Laboratory Tests Test 12/14/18 23:31 12/15/18 03:37 12/15/18 06:42 Bedside Glucose 254 H 185 White Blood Count 4.4 L Red Blood Count 2.91 L Hemoglobin 8.5 L Hematocrit 28.0 L Mean Corpuscular Volume 96.2 Mean Corpuscular Hemoglobin 29.2 Mean Corpuscular Hemoglobin Concent 30.4 L Red Cell Distribution Width 17.1 H Platelet Count 128 L Mean Platelet Volume 11.7 H Immature Granulocytes % 0.500 H Neutrophils % 59.7 Lymphocytes % 19.5 Monocytes % 18.1 H Eosinophils % 2.0 Basophils % 0.2 Nucleated Red Blood Cells % 0.0 Immature Granulocytes # 0.020 Neutrophils # 2.6 Lymphocytes # 0.9 Monocytes # 0.8 Eosinophils # 0.1 Basophils # 0.0 Nucleated Red Blood Cells # 0.0 Sodium Level 140 Potassium Level 4.2 Chloride Level 101 Carbon Dioxide Level 31 Anion Gap 8 Blood Urea Nitrogen 9 Creatinine 3.43 H Est Glomerular Filtrat Rate mL/min Glucose Level 178 Calcium Level 8.8 Total Bilirubin 0.4 Direct Bilirubin 0.00 Indirect Bilirubin 0.4 Aspartate Amino Transf (AST/SGOT) 34 Alanine Aminotransferase (ALT/SGPT) 9 L Alkaline Phosphatase 89 Total Protein 6.3 Albumin 3.6 Globulin 2.70 Albumin/Globulin Ratio 1.33 Medications Medication Current Medications Miscellaneous Information (Pending Managed Objects Order For Wound Care) This patient miles... PRN PRN XX WOUND CARE; Start 12/14/18 at 19:00 Acetaminophen (Tylenol Supp) 650 mg Q4H PRN [place] MILD PAIN(1-3) OR TEMP>38C; Start 12/14/18 at 22:00 Acetaminophen (Tylenol Liquid) 650 mg Q4H PRN PO MILD PAIN(1-3)OR ELEVATED TEMP Last administered on 12/14/18at 23:58; Admin Dose 650 MG; Start 12/14/18 at 22:00 Albumin Human 100 ml @ 100 mls/hr DURING DIALYSIS PRN IV HYPOTENTION DURING HD; Start 12/14/18 at 22:00 Albuterol/ Ipratropium (Duoneb) 3 ml Q6H RESP THERAPY PRN HHN SHORTNESS OF BREATH; Start 12/14/18 at 22:00 Budesonide (Pulmicort (Neb)) 0.5 mg BID RESP THERAPY HHN Last administered on 12/15/18at 09:57; Admin Dose 0.5 MG; Start 12/14/18 at 22:00 Clonidine HCl (Catapres-Tts 2 Patch) 1 patch Q7D TRANSDERM ; Start 12/17/18 at 13:00 Diltiazem HCl (Cardizem) 30 mg Q8 PO Last administered on 12/15/18at 07:07; Admin Dose 30 MG; Start 12/14/18 at 23:00 Docusate Sodium (Colace) 100 mg BID PRN PO CONSTIPATION; Start 12/14/18 at 22:00 Epoetin Kavon-epbx (RETACRIT(esrd)) 10,000 unit MoWeFr@1700 SC ; Start 12/17/18 at 17:00 Hydralazine HCl (Apresoline) 10 mg Q6H PRN IV SBP >160; Start 12/14/18 at 22:30 Hydralazine HCl (Apresoline) 25 mg Q6H PRN PO high blood pressure; Start 12/14/18 at 22:30 Insulin Aspart (Novolog Insulin Pen) NOVOLOG *MILD* ALGORITHM WITH MEALS BEDTIME SC Last administered on 12/14/18at 23:33; Admin Dose 2 UNIT; Start 12/14/18 at 23:00 Insulin Glargine (Lantus) 10 units DAILY@0800 SC ; Start 12/15/18 at 08:00 Levothyroxine Sodium (Synthroid) 125 mcg DAILY@06 PO Last administered on 12/15/18at 07:07; Admin Dose 125 MCG; Start 12/15/18 at 06:00 Metoprolol Tartrate (Lopressor) 75 mg BID PO Last administered on 12/14/18at 22:46; Admin Dose 75 MG; Start 12/14/18 at 22:30 Multivit/Ca Carb/ B Cmplx/FA/Prenat (Lalita-Romain) 1 tab DAILY PO ; Start 12/15/18 at 09:00 Ondansetron HCl (Zofran Inj) 4 mg Q4H PRN IV NAUSEA AND/OR VOMITING; Start 12/14/18 at 22:30 Pantoprazole (Protonix Tab) 40 mg DAILY@06 PO Last administered on 12/15/18at 07:07; Admin Dose 40 MG; Start 12/15/18 at 06:00 Polyethylene Glycol (Miralax) 17 gm DAILY PO ; Start 12/15/18 at 09:00 Quetiapine Fumarate (Seroquel) 25 mg QHS PO Last administered on 12/14/18at 22:45; Admin Dose 25 MG; Start 12/14/18 at 22:30 Quetiapine Fumarate (Seroquel) 12.5 mg BID WITH MEALS PO ; Start 12/15/18 at 07:35 IV Flush (NS 10 ml) 10 ml PRN PRN IV IV PROTOCOL; Start 12/14/18 at 22:30 Sevelamer Carbonate (Renvela) 800 mg WITH MEALS PO ; Start 12/15/18 at 07:35 Miscellaneous Information 1 ea NOTE XX ; Start 12/14/18 at 22:30 Glucose (Glutose) 15 gm Q15M PRN PO DECREASED GLUCOSE; Start 12/14/18 at 22:30 Glucose (Glutose) 22.5 gm Q15M PRN PO DECREASED GLUCOSE; Start 12/14/18 at 22:30 Dextrose (D50w Syringe) 25 ml Q15M PRN IV DECREASED GLUCOSE; Start 12/14/18 at 22:30 Dextrose (D50w Syringe) 50 ml Q15M PRN IV DECREASED GLUCOSE; Start 12/14/18 at 22:30 Glucagon (Glucagen) 1 mg Q15M PRN IM DECREASED GLUCOSE; Start 12/14/18 at 22:30 Glucose (Glutose) 15 gm Q15M PRN BUCCAL DECREASED GLUCOSE; Start 12/14/18 at 22:30 TEA NEWBY MD December 15, 2018 12:39
--- NOTE | 2018-12-15 12:44 | CONS ---
Assessment/Plan Assessment/Plan Hospital Course (Demo Recall) 1) hypertension - continue medds 2) diabetes - monitor blood sugar 3) renal failure - hemodialysis as needed 4) debilitation - rehab Consultation Date/Type/Reason Admit Date/Time December 14, 2018 at 18:28 Date of Consultation: December 15, 2018 Type of Consult Internal Medicine Reason for Consultation General Medicine coverage Date/Time of Note DATE: 12/15/18 TIME: 12:41 Hx of Present Illness Patient with a history of diabetes, hypertension, renal failure, recently in [facility] for encephalopathy. Patient was also placed on hemodialysis for renal failure. Patient was transfered to acute rehab after stabilization in the acute hospital. Past Medical History Medical History: diabetes Home Meds Reported Medications Alprazolam* (Alprazolam*) 0.25 Mg Tablet, 0.25 MG PO NEEDED PRN for ANXIETY, TAB 11/26/18 Magnesium Oxide* (Mag-Oxide*) 400 Mg Tablet, 400 MG PO BID, TAB 11/26/18 Losartan Potassium* (Losartan Potassium*) 50 Mg Tablet, 50 MG PO BID PRN for NEEDED, TAB 11/26/18 Atorvastatin Calcium* (Atorvastatin Calcium*) 20 Mg Tablet, 20 MG PO QHS, #30 TAB 11/26/18 Potassium Chloride* (Potassium Chloride*) 8 Meq Capsule.er, 8 MEQ PO DAILY, CAP 11/26/18 Dronedarone Hydrochloride* (Multaq*) 400 Mg Tablet, 400 MG PO BID, TAB 11/26/18 Insulin Aspart (Novolog) 100 Unit/1 Ml Cartridge, 8 UNIT SQ AC BREAKFAST DINNER 11/26/18 Clopidogrel Bisulfate* (Clopidogrel Bisulfate*) 75 Mg Tablet, 75 MG PO DAILY, #30 TAB 11/26/18 Carvedilol* (Carvedilol*) 3.125 Mg Tablet, 3.125 MG PO BID, #60 TAB 11/26/18 Gabapentin* (Gabapentin*) 300 Mg Capsule, 300 MG PO DAILY, #60 CAP NEEDED 11/26/18 Aspirin* (Aspirin* EC) 81 Mg Tablet.dr, 81 MG PO DAILY, TAB 11/26/18 Amlodipine Besylate* (Amlodipine Besylate*) 10 Mg Tablet, 10 MG PO DAILY, #30 TAB TAKE NEEDED 11/26/18 Famotidine* (Famotidine*) 20 Mg Tablet, 20 MG PO BID, #30 TAB 11/26/18 Furosemide* (Furosemide*) 40 Mg Tablet, 40 MG PO BID, TAB 11/26/18 Levothyroxine Sodium* (Levothyroxine Sodium*) 125 Mcg Tablet, 125 MCG PO BEFORE BREAKFAST, #30 TAB 11/26/18 Bisacodyl (Ducodyl) 5 Mg Tablet.dr, 5 MG PO NEEDED 11/26/18 Ergocalciferol (Vitamin D2) (VITAMIN D2) 50,000 Unit Capsule, 16053 UNIT PO Q SAT, CAP 11/26/18 Lisinopril* (Lisinopril*) 5 Mg Tablet, 5 MG PO DAILY, #30 TAB TAKE NEEDED 11/26/18 Clonidine Hcl* (Clonidine Hcl*) 0.2 Mg Tablet, 0.2 MG PO BID PRN for HTN, TAB 11/26/18 Clonidine Patch (CLONIDINE PATCH) 0.2 Mg/24 Hr Patch, 1 PATCH.WK TD Q7D, #4 PATCH.WK 11/26/18 Hydralazine Hcl* (Apresoline*) 50 Mg Tab, 50 MG PO BID PRN for HTN, #60 TAB TAKE NEEDED 11/26/18 Insulin Glargine,Hum.rec.anlog (Basaglar Kwikpen U-100) 100 Unit/1 Ml Insuln.pen, 40 UNIT SC QHS, EA 11/26/18 Docusate Sodium* (Colace*) 250 Mg Capsule, 250 MG PO BID, #60 CAP 11/26/18 Ferrous Sulfate* (Ferrous Sulfate*) 325 Mg Tabec, 325 MG PO BID, TAB 11/26/18 Medications Current Medications Miscellaneous Information (Pending Santyl Order For Wound Care) This patient miles... PRN PRN XX WOUND CARE; Start 12/14/18 at 19:00 Acetaminophen (Tylenol Supp) 650 mg Q4H PRN [place] MILD PAIN(1-3) OR TEMP>38C; Start 12/14/18 at 22:00 Acetaminophen (Tylenol Liquid) 650 mg Q4H PRN PO MILD PAIN(1-3)OR ELEVATED TEMP Last administered on 12/14/18at 23:58; Admin Dose 650 MG; Start 12/14/18 at 22:00 Albumin Human 100 ml @ 100 mls/hr DURING DIALYSIS PRN IV HYPOTENTION DURING HD; Start 12/14/18 at 22:00 Albuterol/ Ipratropium (Duoneb) 3 ml Q6H RESP THERAPY PRN HHN SHORTNESS OF BREATH; Start 12/14/18 at 22:00 Budesonide (Pulmicort (Neb)) 0.5 mg BID RESP THERAPY HHN Last administered on 12/15/18at 09:57; Admin Dose 0.5 MG; Start 12/14/18 at 22:00 Clonidine HCl (Catapres-Tts 2 Patch) 1 patch Q7D TRANSDERM ; Start 12/17/18 at 13:00 Diltiazem HCl (Cardizem) 30 mg Q8 PO Last administered on 12/15/18at 07:07; Admin Dose 30 MG; Start 12/14/18 at 23:00 Docusate Sodium (Colace) 100 mg BID PRN PO CONSTIPATION; Start 12/14/18 at 22:00 Epoetin Kavon-epbx (RETACRIT(esrd)) 10,000 unit MoWeFr@1700 SC ; Start 12/17/18 at 17:00 Hydralazine HCl (Apresoline) 10 mg Q6H PRN IV SBP >160; Start 12/14/18 at 22:30 Hydralazine HCl (Apresoline) 25 mg Q6H PRN PO high blood pressure; Start 12/14/18 at 22:30 Insulin Aspart (Novolog Insulin Pen) NOVOLOG *MILD* ALGORITHM WITH MEALS BEDTIME SC Last administered on 12/14/18at 23:33; Admin Dose 2 UNIT; Start 12/14/18 at 23:00 Insulin Glargine (Lantus) 10 units DAILY@0800 SC ; Start 12/15/18 at 08:00 Levothyroxine Sodium (Synthroid) 125 mcg DAILY@06 PO Last administered on 12/15/18at 07:07; Admin Dose 125 MCG; Start 12/15/18 at 06:00 Metoprolol Tartrate (Lopressor) 75 mg BID PO Last administered on 12/14/18at 22:46; Admin Dose 75 MG; Start 12/14/18 at 22:30 Multivit/Ca Carb/ B Cmplx/FA/Prenat (Lalita-Romain) 1 tab DAILY PO ; Start 12/15/18 at 09:00 Ondansetron HCl (Zofran Inj) 4 mg Q4H PRN IV NAUSEA AND/OR VOMITING; Start 12/14/18 at 22:30 Pantoprazole (Protonix Tab) 40 mg DAILY@06 PO Last administered on 12/15/18at 07:07; Admin Dose 40 MG; Start 12/15/18 at 06:00 Polyethylene Glycol (Miralax) 17 gm DAILY PO ; Start 12/15/18 at 09:00 Quetiapine Fumarate (Seroquel) 25 mg QHS PO Last administered on 12/14/18at 22:45; Admin Dose 25 MG; Start 12/14/18 at 22:30 Quetiapine Fumarate (Seroquel) 12.5 mg BID WITH MEALS PO ; Start 12/15/18 at 07:35 IV Flush (NS 10 ml) 10 ml PRN PRN IV IV PROTOCOL; Start 12/14/18 at 22:30 Sevelamer Carbonate (Renvela) 800 mg WITH MEALS PO ; Start 12/15/18 at 07:35 Miscellaneous Information 1 ea NOTE XX ; Start 12/14/18 at 22:30 Glucose (Glutose) 15 gm Q15M PRN PO DECREASED GLUCOSE; Start 12/14/18 at 22:30 Glucose (Glutose) 22.5 gm Q15M PRN PO DECREASED GLUCOSE; Start 12/14/18 at 22:30 Dextrose (D50w Syringe) 25 ml Q15M PRN IV DECREASED GLUCOSE; Start 12/14/18 at 22:30 Dextrose (D50w Syringe) 50 ml Q15M PRN IV DECREASED GLUCOSE; Start 12/14/18 at 22:30 Glucagon (Glucagen) 1 mg Q15M PRN IM DECREASED GLUCOSE; Start 12/14/18 at 22:30 Glucose (Glutose) 15 gm Q15M PRN BUCCAL DECREASED GLUCOSE; Start 12/14/18 at 22:30 Allergies: Coded Allergies: No Known Allergy (Unverified , 11/26/18) Social History Smoking Status: Never smoker Exam/Review of Systems Exam Vitals Vital Signs Date Temp Pulse Resp B/P (MAP) Pulse Ox O2 O2 Flow FiO2 Time Delivery Rate 12/15/18 98.2 78 18 135/65 96 Room Air 08:00 (88) 12/15/18 2.0 05:00 Intake and Output 12/14/18 12/14/18 12/15/18 1515:00 23:00 07:00 IntakeIntake Total 20 ml BalanceBalance 20 ml Constitutional: well developed, frail Head: normocephalic, atraumatic Neck: supple Respiratory: diminished breath sounds Cardiovascular: regular rate and rhythm Gastrointestinal: soft, non-tender Extremities: normal pulses Results Result Diagram: 12/15/18 0642 12/15/18 0642 Results 24hrs Laboratory Tests Test 12/14/18 23:31 12/15/18 03:37 12/15/18 06:42 Bedside Glucose 254 H 185 White Blood Count 4.4 L Red Blood Count 2.91 L Hemoglobin 8.5 L Hematocrit 28.0 L Mean Corpuscular Volume 96.2 Mean Corpuscular Hemoglobin 29.2 Mean Corpuscular Hemoglobin Concent 30.4 L Red Cell Distribution Width 17.1 H Platelet Count 128 L Mean Platelet Volume 11.7 H Immature Granulocytes % 0.500 H Neutrophils % 59.7 Lymphocytes % 19.5 Monocytes % 18.1 H Eosinophils % 2.0 Basophils % 0.2 Nucleated Red Blood Cells % 0.0 Immature Granulocytes # 0.020 Neutrophils # 2.6 Lymphocytes # 0.9 Monocytes # 0.8 Eosinophils # 0.1 Basophils # 0.0 Nucleated Red Blood Cells # 0.0 Sodium Level 140 Potassium Level 4.2 Chloride Level 101 Carbon Dioxide Level 31 Anion Gap 8 Blood Urea Nitrogen 9 Creatinine 3.43 H Est Glomerular Filtrat Rate mL/min Glucose Level 178 Calcium Level 8.8 Total Bilirubin 0.4 Direct Bilirubin 0.00 Indirect Bilirubin 0.4 Aspartate Amino Transf (AST/SGOT) 34 Alanine Aminotransferase (ALT/SGPT) 9 L Alkaline Phosphatase 89 Total Protein 6.3 Albumin 3.6 Globulin 2.70 Albumin/Globulin Ratio 1.33 Medications Medication Current Medications Miscellaneous Information (Pending Santyl Order For Wound Care) This patient miles... PRN PRN XX WOUND CARE; Start 12/14/18 at 19:00 Acetaminophen (Tylenol Supp) 650 mg Q4H PRN [place] MILD PAIN(1-3) OR TEMP>38C; Start 12/14/18 at 22:00 Acetaminophen (Tylenol Liquid) 650 mg Q4H PRN PO MILD PAIN(1-3)OR ELEVATED TEMP Last administered on 12/14/18at 23:58; Admin Dose 650 MG; Start 12/14/18 at 22:00 Albumin Human 100 ml @ 100 mls/hr DURING DIALYSIS PRN IV HYPOTENTION DURING HD; Start 12/14/18 at 22:00 Albuterol/ Ipratropium (Duoneb) 3 ml Q6H RESP THERAPY PRN HHN SHORTNESS OF BREATH; Start 12/14/18 at 22:00 Budesonide (Pulmicort (Neb)) 0.5 mg BID RESP THERAPY HHN Last administered on 12/15/18at 09:57; Admin Dose 0.5 MG; Start 12/14/18 at 22:00 Clonidine HCl (Catapres-Tts 2 Patch) 1 patch Q7D TRANSDERM ; Start 12/17/18 at 13:00 Diltiazem HCl (Cardizem) 30 mg Q8 PO Last administered on 12/15/18at 07:07; Admin Dose 30 MG; Start 12/14/18 at 23:00 Docusate Sodium (Colace) 100 mg BID PRN PO CONSTIPATION; Start 12/14/18 at 22:00 Epoetin Kavon-epbx (RETACRIT(esrd)) 10,000 unit MoWeFr@1700 SC ; Start 12/17/18 at 17:00 Hydralazine HCl (Apresoline) 10 mg Q6H PRN IV SBP >160; Start 12/14/18 at 22:30 Hydralazine HCl (Apresoline) 25 mg Q6H PRN PO high blood pressure; Start 12/14/18 at 22:30 Insulin Aspart (Novolog Insulin Pen) NOVOLOG *MILD* ALGORITHM WITH MEALS BEDTIME SC Last administered on 12/14/18at 23:33; Admin Dose 2 UNIT; Start 12/14/18 at 23:00 Insulin Glargine (Lantus) 10 units DAILY@0800 SC ; Start 12/15/18 at 08:00 Levothyroxine Sodium (Synthroid) 125 mcg DAILY@06 PO Last administered on 12/15/18at 07:07; Admin Dose 125 MCG; Start 12/15/18 at 06:00 Metoprolol Tartrate (Lopressor) 75 mg BID PO Last administered on 12/14/18at 22:46; Admin Dose 75 MG; Start 12/14/18 at 22:30 Multivit/Ca Carb/ B Cmplx/FA/Prenat (Lalita-Romain) 1 tab DAILY PO ; Start 12/15/18 at 09:00 Ondansetron HCl (Zofran Inj) 4 mg Q4H PRN IV NAUSEA AND/OR VOMITING; Start 12/14/18 at 22:30 Pantoprazole (Protonix Tab) 40 mg DAILY@06 PO Last administered on 12/15/18at 07:07; Admin Dose 40 MG; Start 12/15/18 at 06:00 Polyethylene Glycol (Miralax) 17 gm DAILY PO ; Start 12/15/18 at 09:00 Quetiapine Fumarate (Seroquel) 25 mg QHS PO Last administered on 12/14/18at 22:45; Admin Dose 25 MG; Start 12/14/18 at 22:30 Quetiapine Fumarate (Seroquel) 12.5 mg BID WITH MEALS PO ; Start 12/15/18 at 07:35 IV Flush (NS 10 ml) 10 ml PRN PRN IV IV PROTOCOL; Start 12/14/18 at 22:30 Sevelamer Carbonate (Renvela) 800 mg WITH MEALS PO ; Start 12/15/18 at 07:35 Miscellaneous Information 1 ea NOTE XX ; Start 12/14/18 at 22:30 Glucose (Glutose) 15 gm Q15M PRN PO DECREASED GLUCOSE; Start 12/14/18 at 22:30 Glucose (Glutose) 22.5 gm Q15M PRN PO DECREASED GLUCOSE; Start 12/14/18 at 22:30 Dextrose (D50w Syringe) 25 ml Q15M PRN IV DECREASED GLUCOSE; Start 12/14/18 at 22:30 Dextrose (D50w Syringe) 50 ml Q15M PRN IV DECREASED GLUCOSE; Start 12/14/18 at 22:30 Glucagon (Glucagen) 1 mg Q15M PRN IM DECREASED GLUCOSE; Start 12/14/18 at 22:30 Glucose (Glutose) 15 gm Q15M PRN BUCCAL DECREASED GLUCOSE; Start 12/14/18 at 22:30 KASIA WORRELL December 15, 2018 12:44
--- NOTE | 2018-12-15 14:04 | CONS ---
Assessment/Plan Assessment/Plan Hospital Course (Demo Recall) IMPRESSION: 1. Hypotension-overall improved and not on pressors currently and now HTN requiring medications 2. Atrial fibrillation, primarily rate controlled off of antihypertensives at this time. 3. Anemia, worsening with guaiac positive stool consistent with gastrointestinal bleed. 4. Diabetes mellitus. 5. Acute on chronic renal failure,now on hemodialysis. 6. Altered mental state. 7. Diastolic congestive heart failure due to a preserved EF by most recent echo and findings by chest x-ray. 8. History of coronary artery disease, nonobstructive by outside hospital catheterization. 9. Shortness of breath with hypothyroidism. 10. Diabetes mellitus. 11.UTI Recc: -Now in rehab -Continue BB with slight increase/clonidine TTS and now CCB -s/p dose digoxin IVP to assure good HR control -HD for volume removal -Follow HR/rhythm closely -not on anticoagulation secondary to GIB/anemia requiring transfusion -Family refusing endoscopy -PT Consultation Date/Type/Reason Admit Date/Time December 14, 2018 at 18:28 Initial Consult Date 12/15/18 Type of Consult Cardiology Reason for Consultation AF Requesting Provider: NEREIDA MCQUEEN MD Date/Time of Note DATE: 12/15/18 TIME: 13:59 Exam/Review of Systems Vital Signs Vitals Vital Signs Date Temp Pulse Resp B/P (MAP) Pulse Ox O2 O2 Flow FiO2 Time Delivery Rate 12/15/18 Nasal 2.0 08:00 Cannula 12/15/18 98.2 78 18 135/65 96 08:00 (88) Intake and Output 12/14/18 12/14/18 12/15/18 1515:00 23:00 07:00 IntakeIntake Total 20 ml BalanceBalance 20 ml Exam Exam Review of Systems: CONSTITUTIONAL: No fevers, chills. PULMONARY: No sob CARDIOVASCULAR: No chest pain/palpitations GASTROINTESTINAL: No nausea/vomiting. GENITOURINARY: No hematuria/dysuria. MUSCULOSKELETAL: No myagias/arthalgias. PSYCHIATRIC: The patient denies depression. NEUROLOGIC: No weakness Constitutional: alert Psych: no complaints Head: normocephalic ENMT: mucosa pink and moist Neck: supple, jvd (9 cm water) Respiratory: diminished breath sounds (at bases/B) Cardiovascular: regular rate and rhythm Gastrointestinal: soft, non-tender Musculoskeletal: muscle tone (normal) Extremities: edema (trace/B) Neurological: other (No focal deficits) Labs Result Diagram: 12/15/18 0642 12/15/18 0642 Results 24hrs Laboratory Tests Test 12/14/18 23:31 12/15/18 03:37 12/15/18 06:42 Bedside Glucose 254 H 185 White Blood Count 4.4 L Red Blood Count 2.91 L Hemoglobin 8.5 L Hematocrit 28.0 L Mean Corpuscular Volume 96.2 Mean Corpuscular Hemoglobin 29.2 Mean Corpuscular Hemoglobin Concent 30.4 L Red Cell Distribution Width 17.1 H Platelet Count 128 L Mean Platelet Volume 11.7 H Immature Granulocytes % 0.500 H Neutrophils % 59.7 Lymphocytes % 19.5 Monocytes % 18.1 H Eosinophils % 2.0 Basophils % 0.2 Nucleated Red Blood Cells % 0.0 Immature Granulocytes # 0.020 Neutrophils # 2.6 Lymphocytes # 0.9 Monocytes # 0.8 Eosinophils # 0.1 Basophils # 0.0 Nucleated Red Blood Cells # 0.0 Sodium Level 140 Potassium Level 4.2 Chloride Level 101 Carbon Dioxide Level 31 Anion Gap 8 Blood Urea Nitrogen 9 Creatinine 3.43 H Est Glomerular Filtrat Rate mL/min Glucose Level 178 Calcium Level 8.8 Total Bilirubin 0.4 Direct Bilirubin 0.00 Indirect Bilirubin 0.4 Aspartate Amino Transf (AST/SGOT) 34 Alanine Aminotransferase (ALT/SGPT) 9 L Alkaline Phosphatase 89 Total Protein 6.3 Albumin 3.6 Globulin 2.70 Albumin/Globulin Ratio 1.33 Medications Medications Current Medications Miscellaneous Information (Pending [facility] Order For Wound Care) This patient miles... PRN PRN XX WOUND CARE; Start 12/14/18 at 19:00 Acetaminophen (Tylenol Supp) 650 mg Q4H PRN AR MILD PAIN(1-3) OR TEMP>38C; Start 12/14/18 at 22:00 Acetaminophen (Tylenol Liquid) 650 mg Q4H PRN PO MILD PAIN(1-3)OR ELEVATED TEMP Last administered on 12/14/18at 23:58; Admin Dose 650 MG; Start 12/14/18 at 22:00 Albumin Human 100 ml @ 100 mls/hr DURING DIALYSIS PRN IV HYPOTENTION DURING HD; Start 12/14/18 at 22:00 Albuterol/ Ipratropium (Duoneb) 3 ml Q6H RESP THERAPY PRN HHN SHORTNESS OF BREATH; Start 12/14/18 at 22:00 Budesonide (Pulmicort (Neb)) 0.5 mg BID RESP THERAPY HHN Last administered on 12/15/18at 09:57; Admin Dose 0.5 MG; Start 12/14/18 at 22:00 Clonidine HCl (Catapres-Tts 2 Patch) 1 patch Q7D TRANSDERM ; Start 12/17/18 at 13:00 Diltiazem HCl (Cardizem) 30 mg Q8 PO Last administered on 12/15/18at 07:07; Admin Dose 30 MG; Start 12/14/18 at 23:00 Docusate Sodium (Colace) 100 mg BID PRN PO CONSTIPATION; Start 12/14/18 at 22:00 Epoetin Kavon-epbx (RETACRIT(esrd)) 10,000 unit MoWeFr@1700 SC ; Start 12/17/18 at 17:00 Hydralazine HCl (Apresoline) 10 mg Q6H PRN IV SBP >160; Start 12/14/18 at 22:30 Hydralazine HCl (Apresoline) 25 mg Q6H PRN PO high blood pressure; Start 12/14/18 at 22:30 Insulin Aspart (Novolog Insulin Pen) NOVOLOG *MILD* ALGORITHM WITH MEALS BEDTIME SC Last administered on 12/14/18at 23:33; Admin Dose 2 UNIT; Start 12/14/18 at 23:00 Insulin Glargine (Lantus) 10 units DAILY@0800 SC ; Start 12/15/18 at 08:00 Levothyroxine Sodium (Synthroid) 125 mcg DAILY@06 PO Last administered on 12/15/18at 07:07; Admin Dose 125 MCG; Start 12/15/18 at 06:00 Metoprolol Tartrate (Lopressor) 75 mg BID PO Last administered on 12/14/18at 22:46; Admin Dose 75 MG; Start 12/14/18 at 22:30 Multivit/Ca Carb/ B Cmplx/FA/Prenat (Lalita-Romain) 1 tab DAILY PO ; Start 12/15/18 at 09:00 Ondansetron HCl (Zofran Inj) 4 mg Q4H PRN IV NAUSEA AND/OR VOMITING; Start 12/14/18 at 22:30 Pantoprazole (Protonix Tab) 40 mg DAILY@06 PO Last administered on 12/15/18at 07:07; Admin Dose 40 MG; Start 12/15/18 at 06:00 Polyethylene Glycol (Miralax) 17 gm DAILY PO ; Start 12/15/18 at 09:00 Quetiapine Fumarate (Seroquel) 25 mg QHS PO Last administered on 12/14/18at 22:45; Admin Dose 25 MG; Start 12/14/18 at 22:30 Quetiapine Fumarate (Seroquel) 12.5 mg BID WITH MEALS PO ; Start 12/15/18 at 07:35 IV Flush (NS 10 ml) 10 ml PRN PRN IV IV PROTOCOL; Start 12/14/18 at 22:30 Sevelamer Carbonate (Renvela) 800 mg WITH MEALS PO ; Start 12/15/18 at 07:35 Miscellaneous Information 1 ea NOTE XX ; Start 12/14/18 at 22:30 Glucose (Glutose) 15 gm Q15M PRN PO DECREASED GLUCOSE; Start 12/14/18 at 22:30 Glucose (Glutose) 22.5 gm Q15M PRN PO DECREASED GLUCOSE; Start 12/14/18 at 22:30 Dextrose (D50w Syringe) 25 ml Q15M PRN IV DECREASED GLUCOSE; Start 12/14/18 at 22:30 Dextrose (D50w Syringe) 50 ml Q15M PRN IV DECREASED GLUCOSE; Start 12/14/18 at 22:30 Glucagon (Glucagen) 1 mg Q15M PRN IM DECREASED GLUCOSE; Start 12/14/18 at 22:30 Glucose (Glutose) 15 gm Q15M PRN BUCCAL DECREASED GLUCOSE; Start 12/14/18 at 22:30 CARMELO MAE December 15, 2018 14:04
--- NOTE | 2018-12-15 14:16 | CONS ---
DATE OF ADMISSION: 12/14/2018 DATE OF CONSULTATION: 12/15/2018 REHABILITATION POST-ADMISSION PHYSICIAN EVALUATION REHABILITATION IMPAIRMENT CATEGORY: Toxic metabolic encephalopathy. ACTIVE COMORBIDITIES: 1. Oropharyngeal dysphagia on pureed diet. 2. Pulmonary debility, status post respiratory failure. 3. Acute on chronic kidney disease currently on hemodialysis. 4. Anemia. 5. Mineral bone disease. 6. Diabetes mellitus type 2. 7. Coronary artery disease. 8. Hypothyroidism. 9. Hypertension. 10. Atrial fibrillation. 11. Congestive heart failure. 12. Urinary tract infection. 13. History of thrombocytosis. 14. Impairments in self-care, mobility and cognition. HISTORY OF PRESENT ILLNESS: The patient is a 78-year-old female with a history of multiple medical c omorbidities who had a recent admission for respiratory failure at [facility] due to pulmonary edema and acute diastolic heart failure. The patient had been transferred to [facility] on 11/18/2018. The patient's hospital course at [place] was complicated by worseni ng cognition in addition to worsening renal status. The patient was treated for acute on chronic kid adrian disease and did require dialysis. The patient's cognitive status was assessed by neurology and p atient felt to have encephalopathy. The patient's hospital course also notable for significant anemi a, thrombocytopenia, dysphagia requiring pureed diet, atrial fibrillation. The patient has now been cleared to transfer to the rehabilitation unit for comprehensive interdisciplinary rehab care. FUNCTIONAL HISTORY: Prior to recent events, the patient was independent in self-care tasks and mobil ity. Currently, the patient requires moderate to maximal assist for self-care and mobility tasks. I have reviewed the preadmission screen and the patient's current functional status is consistent wit h the preadmission screen. FAMILY AND SOCIAL HISTORY: The patient lives at home and hopes to return there upon discharge. PAST MEDICAL HISTORY: 1. Diabetes mellitus type 2. 2. Chronic kidney disease. 3. Anemia. 4. Mineral bone disease. 5. Coronary artery disease. 6. Hypothyroidism. 7. Hypertension. 8. Atrial fibrillation. CURRENT MEDICATIONS: 1. Pulmicort. 2. Insulin sliding scale. 3. Cardizem 30 mg p.o. q.8h. 4. Epogen. 5. Apresoline 25 mg p.o. q.6h. p.r.n. 6. Lantus 10 units subcu daily. 7. Synthroid 125 mcg p.o. daily. 8. Lopressor 75 mg p.o. b.i.d. 9. Lalita-Romain 1 tab p.o. daily. 10. Seroquel 25 mg p.o. at bedtime. 11. Renvela 800 mg p.o. with meals. ALLERGIES: The patient with no known drug allergies. PHYSICAL EXAMINATION: VITAL SIGNS: The patient is currently afebrile with stable vital signs. HEENT: Extraocular motions appear intact. Oropharynx clear. NECK: Supple. LUNGS: Clear anteriorly. CARDIAC: S1, S2. ABDOMEN: Soft, nontender, positive bowel sounds. NEUROLOGIC: She is awake and alert and able to follow simple 1-step commands. She demonstrates anti gravity strength in bilateral upper extremity and lower extremity. She does have impaired dynamic ba alpesh. PLAN: The patient has been admitted for comprehensive interdisciplinary acute rehab and is anticipat ed to tolerate 3 hours of daily therapy in divided doses for at least 5/7 days a week. The treatment plan will include: 1. Physical therapy to focus on bed mobility, transfers, and household ambulation with the goal of h aving the patient reach a standby assist level. 2. Occupational therapy to focus on hygiene, grooming, dressing, bathing, and toileting activities w ith goal of having patient reach standby assist level. 3. Rehabilitation nursing for carryover of therapeutic interventions, the goal of continent of bowel and bladder, and the goal of patient education with regard to the aforementioned issues. 4. Neuropsychological evaluation for full cognitive assessment and oversight of cognitive program. 5. Speech therapy for full cognitive evaluation in addition to dysphagia management with the goal of having the patient return to baseline cognition and meet nutritional needs by mouth. ESTIMATED LENGTH OF STAY: 14 days. DISPOSITION GOAL: Home. As a Board Certified rehabilitation psychologist in [facility], I attest that this patient qualifies for an i nterdisciplinary acute rehabilitation unit stay and is best managed at this level of care given the m ultiple medical comorbidities. After a thorough review of this patient's medical records in addition to a full physical examination, I believe that this patient meets criteria for acute rehabilitation unit level of care under [facility] guidelines and is anticipated to make reasonable goals in a reasonable period of time as outlined above. Dictated By: BALA QUINN/STEPHEN Conf#: [id number] [facility]#: [id number]
[2018-12-15 15:59] VITALS: BP 173/76; PULSE 66; RESP 18
[2018-12-15 20:12] VITALS: BP 155/72; PULSE 94
[2018-12-16 03:00] VITALS: BP 134/95; PULSE 69; RESP 18
[2018-12-16] MEDS: LEVOTHYROXINE 125 MCG TAB PO SCH (06:00)
[2018-12-16] MEDS: DILTIAZEM 30 MG TAB PO SCH ×3 (06:00→21:43)
[2018-12-16] MEDS: PANTOPRAZOLE (EC) 40 MG TAB PO SCH (06:00)
[2018-12-16 07:00] VITALS: BP 133/60; PULSE 71; RESP 18
[2018-12-16] MEDS: INSULIN ASPART [NOVOLOG] 3 ML PEN SC SCH ×5 (07:35→20:34)
[2018-12-16] MEDS: SEVELAMER CARBONATE 800 MG TABLET PO SCH ×3 (07:35→17:35)
[2018-12-16] MEDS: QUETIAPINE 25 MG TAB PO SCH ×3 (07:35→20:33)
[2018-12-16] MEDS: INSULIN GLARGINE [LANTus] (100 UNITS/ML) SYG SC SCH ×2 (08:00→08:22)
[2018-12-16] MEDS: POLYETHYLENE GLYCOL 17 GM PACKET PO SCH (09:00)
[2018-12-16] MEDS: BUDESONIDE (NEB) 0.5MG/2ML AMP HHN SCH ×2 (09:00→20:02)
[2018-12-16] MEDS: METOPROLOL 25 MG TAB PO SCH ×2 (09:00→20:33)
[2018-12-16] MEDS: MULTIVIT/CA CARB/B CMPLX/FA TAB PO SCH (09:00)
--- NOTE | 2018-12-16 13:17 | PN ---
Date/Time of Note Date/Time of Note DATE: 12/16/18 TIME: 13:16 Assessment/Plan VTE Prophylaxis Risk score (from Ns)>0 risk: 4 SCD applied (from Ns): No SCD contraindicated: other Pharmacological prophylaxis: LMWH Lines/Catheters IV Catheter Type (from Nrsg): Mid Line Urinary Cath still in place: Yes Reason Cath still needed: skin wounds contaminated by urine Assessment/Plan Hospital Course 1) hypertension - continue medds 2) diabetes - monitor blood sugar 3) renal failure - hemodialysis as needed 4) debilitation - rehab Result Diagram: 12/15/18 0642 12/15/18 0642 Results 24hrs Laboratory Tests Test 12/15/18 17:54 12/15/18 20:18 12/16/18 02:05 12/16/18 08:17 Bedside Glucose 248 H 261 H 235 H 220 Test 12/16/18 12:25 Bedside Glucose 140 Subjective 24 Hr Interval Summary Free Text/Dictation Patient resting comfortably but according to nurse, she is not allowing nursing to feed her or give her medication Exam/Review of Systems Exam Vitals Vital Signs Date Temp Pulse Resp B/P (MAP) Pulse Ox O2 O2 Flow FiO2 Time Delivery Rate 12/16/18 97.8 71 18 133/60 90 Room Air 07:00 (84) 12/15/18 2.0 20:30 12/15/18 21 19:27 Constitutional: well developed Head: normocephalic, atraumatic Neck: supple Respiratory: diminished breath sounds Cardiovascular: regular rate and rhythm Gastrointestinal: soft, non-tender Extremities: normal pulses Results Results 24hrs Laboratory Tests Test 12/15/18 17:54 12/15/18 20:18 12/16/18 02:05 12/16/18 08:17 Bedside Glucose 248 H 261 H 235 H 220 Test 12/16/18 12:25 Bedside Glucose 140 Medications Medication Current Medications Miscellaneous Information ([facility]) This patient miles... PRN PRN XX WOUND CARE; Start 12/14/18 at 19:00 Acetaminophen (Tylenol Supp) 650 mg Q4H PRN [place] MILD PAIN(1-3) OR TEMP>38C; Start 12/14/18 at 22:00 Acetaminophen (Tylenol Liquid) 650 mg Q4H PRN PO MILD PAIN(1-3)OR ELEVATED TEMP Last administered on 12/14/18at 23:58; Admin Dose 650 MG; Start 12/14/18 at 22:00 Albumin Human 100 ml @ 100 mls/hr DURING DIALYSIS PRN IV HYPOTENTION DURING HD; Start 12/14/18 at 22:00 Albuterol/ Ipratropium (Duoneb) 3 ml Q6H RESP THERAPY PRN HHN SHORTNESS OF BREATH; Start 12/14/18 at 22:00 Budesonide (Pulmicort (Neb)) 0.5 mg BID RESP THERAPY HHN Last administered on 12/15/18at 19:27; Admin Dose 0.5 MG; Start 12/14/18 at 22:00 Clonidine HCl (Catapres-Tts 2 Patch) 1 patch Q7D TRANSDERM ; Start 12/17/18 at 13:00 Diltiazem HCl (Cardizem) 30 mg Q8 PO Last administered on 12/15/18at 15:44; Admin Dose 30 MG; Start 12/14/18 at 23:00 Docusate Sodium (Colace) 100 mg BID PRN PO CONSTIPATION; Start 12/14/18 at 22:00 Epoetin Kavon-epbx (RETACRIT(esrd)) 10,000 unit MoWeFr@1700 SC ; Start 12/17/18 at 17:00 Hydralazine HCl (Apresoline) 10 mg Q6H PRN IV SBP >160; Start 12/14/18 at 22:30 Hydralazine HCl (Apresoline) 25 mg Q6H PRN PO high blood pressure; Start 12/14/18 at 22:30 Insulin Aspart (Novolog Insulin Pen) NOVOLOG *MILD* ALGORITHM WITH MEALS BEDTIME SC Last administered on 12/15/18at 20:21; Admin Dose 3 UNIT; Start 12/14/18 at 23:00 Insulin Glargine (Lantus) 10 units DAILY@0800 SC ; Start 12/15/18 at 08:00 Levothyroxine Sodium (Synthroid) 125 mcg DAILY@06 PO Last administered on 12/15/18at 07:07; Admin Dose 125 MCG; Start 12/15/18 at 06:00 Metoprolol Tartrate (Lopressor) 75 mg BID PO Last administered on 12/15/18at 20:23; Admin Dose 75 MG; Start 12/14/18 at 22:30 Multivit/Ca Carb/ B Cmplx/FA/Prenat (Lalita-Romain) 1 tab DAILY PO ; Start 12/15/18 at 09:00 Ondansetron HCl (Zofran Inj) 4 mg Q4H PRN IV NAUSEA AND/OR VOMITING Last administered on 12/16/18at 00:54; Admin Dose 4 MG; Start 12/14/18 at 22:30 Pantoprazole (Protonix Tab) 40 mg DAILY@06 PO Last administered on 12/15/18at 07:07; Admin Dose 40 MG; Start 12/15/18 at 06:00 Polyethylene Glycol (Miralax) 17 gm DAILY PO ; Start 12/15/18 at 09:00 Quetiapine Fumarate (Seroquel) 25 mg QHS PO Last administered on 12/15/18at 20:23; Admin Dose 25 MG; Start 12/14/18 at 22:30 Quetiapine Fumarate (Seroquel) 12.5 mg BID WITH MEALS PO Last administered on 12/15/18at 17:55; Admin Dose 12.5 MG; Start 12/15/18 at 07:35 IV Flush (NS 10 ml) 10 ml PRN PRN IV IV PROTOCOL; Start 12/14/18 at 22:30 Sevelamer Carbonate (Renvela) 800 mg WITH MEALS PO Last administered on 12/15/18at 17:54; Admin Dose 800 MG; Start 12/15/18 at 07:35 Miscellaneous Information 1 ea NOTE XX ; Start 12/14/18 at 22:30 Glucose (Glutose) 15 gm Q15M PRN PO DECREASED GLUCOSE; Start 12/14/18 at 22:30 Glucose (Glutose) 22.5 gm Q15M PRN PO DECREASED GLUCOSE; Start 12/14/18 at 22:30 Dextrose (D50w Syringe) 25 ml Q15M PRN IV DECREASED GLUCOSE; Start 12/14/18 at 22:30 Dextrose (D50w Syringe) 50 ml Q15M PRN IV DECREASED GLUCOSE; Start 12/14/18 at 22:30 Glucagon (Glucagen) 1 mg Q15M PRN IM DECREASED GLUCOSE; Start 12/14/18 at 22:30 Glucose (Glutose) 15 gm Q15M PRN BUCCAL DECREASED GLUCOSE; Start 12/14/18 at 22:30 WORRELL,KASIA Y December 16, 2018 13:17
[2018-12-16 14:00] VITALS: BP 131/62; PULSE 62; RESP 18
--- NOTE | 2018-12-16 15:33 | CONS ---
Assessment/Plan Assessment/Plan Hospital Course (Demo Recall) IMPRESSION: 1. Hypotension-overall improved and not on pressors currently and now HTN requiring medications 2. Atrial fibrillation, primarily rate controlled off of antihypertensives at this time. 3. Anemia, worsening with guaiac positive stool consistent with gastrointestinal bleed. 4. Diabetes mellitus. 5. Acute on chronic renal failure,now on hemodialysis. 6. Altered mental state. 7. Diastolic congestive heart failure due to a preserved EF by most recent echo and findings by chest x-ray. 8. History of coronary artery disease, nonobstructive by outside hospital catheterization. 9. Shortness of breath with hypothyroidism. 10. Diabetes mellitus. 11.UTI Recc: -Now in rehab -Continue BB/clonidine TTS and now CCB as patient will comply as refused some medications today -s/p dose digoxin IVP to assure good HR control -HD for volume removal -Follow HR/rhythm closely -not on anticoagulation secondary to GIB/anemia requiring transfusion -Family refusing endoscopy -PT Consultation Date/Type/Reason Admit Date/Time December 14, 2018 at 18:28 Initial Consult Date 12/15/18 Type of Consult Cardiology Reason for Consultation HTN Requesting Provider: NEREIDA MCQUEEN MD Date/Time of Note DATE: 12/16/18 TIME: 15:32 Exam/Review of Systems Vital Signs Vitals Vital Signs Date Temp Pulse Resp B/P (MAP) Pulse Ox O2 O2 Flow FiO2 Time Delivery Rate 12/16/18 97.8 71 18 133/60 90 Room Air 07:00 (84) 12/15/18 2.0 20:30 12/15/18 21 19:27 Exam Exam Review of Systems: CONSTITUTIONAL: No fevers, chills. PULMONARY: No sob CARDIOVASCULAR: No chest pain/palpitations GASTROINTESTINAL: No nausea/vomiting. GENITOURINARY: No hematuria/dysuria. MUSCULOSKELETAL: No myagias/arthalgias. PSYCHIATRIC: The patient denies depression. NEUROLOGIC: No weakness Constitutional: alert Psych: no complaints ENMT: mucosa pink and moist Neck: supple, jvd (9 cm water) Respiratory: diminished breath sounds (at bases/B) Cardiovascular: regular rate and rhythm Gastrointestinal: soft, non-tender Musculoskeletal: muscle tone (normal) Extremities: edema (none) Neurological: other (no focal deficits) Labs Result Diagram: 12/15/18 0642 12/15/18 0642 Results 24hrs Laboratory Tests Test 12/15/18 17:54 12/15/18 20:18 12/16/18 02:05 12/16/18 08:17 Bedside Glucose 248 H 261 H 235 H 220 Test 12/16/18 12:25 Bedside Glucose 140 Medications Medications Current Medications Miscellaneous Information (Pending [facility] Order For Wound Care) This patient miles... PRN PRN XX WOUND CARE; Start 12/14/18 at 19:00 Acetaminophen (Tylenol Supp) 650 mg Q4H PRN IN MILD PAIN(1-3) OR TEMP>38C; Start 12/14/18 at 22:00 Acetaminophen (Tylenol Liquid) 650 mg Q4H PRN PO MILD PAIN(1-3)OR ELEVATED TEMP Last administered on 12/14/18at 23:58; Admin Dose 650 MG; Start 12/14/18 at 22:00 Albumin Human 100 ml @ 100 mls/hr DURING DIALYSIS PRN IV HYPOTENTION DURING HD; Start 12/14/18 at 22:00 Albuterol/ Ipratropium (Duoneb) 3 ml Q6H RESP THERAPY PRN HHN SHORTNESS OF BREATH; Start 12/14/18 at 22:00 Budesonide (Pulmicort (Neb)) 0.5 mg BID RESP THERAPY HHN Last administered on 12/15/18at 19:27; Admin Dose 0.5 MG; Start 12/14/18 at 22:00 Clonidine HCl (Catapres-Tts 2 Patch) 1 patch Q7D TRANSDERM ; Start 12/17/18 at 13:00 Diltiazem HCl (Cardizem) 30 mg Q8 PO Last administered on 12/16/18at 15:11; Admin Dose 30 MG; Start 12/14/18 at 23:00 Docusate Sodium (Colace) 100 mg BID PRN PO CONSTIPATION; Start 12/14/18 at 22:00 Epoetin Kavon-epbx (RETACRIT(esrd)) 10,000 unit MoWeFr@1700 SC ; Start 12/17/18 at 17:00 Hydralazine HCl (Apresoline) 10 mg Q6H PRN IV SBP >160; Start 12/14/18 at 22:30 Hydralazine HCl (Apresoline) 25 mg Q6H PRN PO high blood pressure; Start 12/14/18 at 22:30 Insulin Aspart (Novolog Insulin Pen) NOVOLOG *MILD* ALGORITHM WITH MEALS BEDTIME SC Last administered on 12/15/18 20:21; Admin Dose 3 UNIT; Start at 23:00 Insulin Glargine (Lantus) 10 units DAILY@0800 SC ; Start 12/15/18 at 08:00 Levothyroxine Sodium (Synthroid) 125 mcg DAILY@06 PO Last administered on 12/15/18at 07:07; Admin Dose 125 MCG; Start 12/15/18 at 06:00 Metoprolol Tartrate (Lopressor) 75 mg BID PO Last administered on 12/15/18 2 0:23; Admin Dose 75 MG; Start 12/14/18 at 22:30 Multivit/Ca Carb/ B Cmplx/FA/Prenat (Lalita-Romain) 1 tab DAILY PO ; Start 12/15/18 at 09:00 Ondansetron HCl (Zofran Inj) 4 mg Q4H PRN IV NAUSEA AND/OR VOMITING Last administered on 12/16/18 00:54; Admin Dose 4 MG; Start 12/14/18 at 22:30 Pantoprazole (Protonix Tab) 40 mg DAILY@06 PO Last administered on 12/15/18 07:07; Admin Dose 40 MG; Start 12/15/18 at 06:00 Polyethylene Glycol (Miralax) 17 gm DAILY PO ; Start 12/15/18 at 09:00 Quetiapine Fumarate (Seroquel) 25 mg QHS PO Last administered on 12/15/18at 20:23; Admin Dose 25 MG; Start 12/14/18 at 22:30 Quetiapine Fumarate (Seroquel) 12.5 mg BID WITH MEALS PO Last administered on 12/15/18 17:55; Admin Dose 12.5 MG; Start 12/15/18 at 07:35 IV Flush (NS 10 ml) 10 ml PRN PRN IV IV PROTOCOL; Start 12/14/18 at 22:30 Sevelamer Carbonate (Renvela) 800 mg WITH MEALS PO Last administered on 12/15/18at 17:54; Admin Dose 800 MG; Start 12/15/18 at 07:35 Miscellaneous Information 1 ea NOTE XX ; Start 12/14/18 at 22:30 Glucose (Glutose) 15 gm Q15M PRN PO DECREASED GLUCOSE; Start 12/14/18 at 22:30 Glucose (Glutose) 22.5 gm Q15M PRN PO DECREASED GLUCOSE; Start 12/14/18 at 22:30 Dextrose (D50w Syringe) 25 ml Q15M PRN IV DECREASED GLUCOSE; Start 12/14/18 at 22:30 Dextrose (D50w Syringe) 50 ml Q15M PRN IV DECREASED GLUCOSE; Start 12/14/18 at 22:30 Glucagon (Glucagen) 1 mg Q15M PRN IM DECREASED GLUCOSE; Start 12/14/18 at 22:30 Glucose (Glutose) 15 gm Q15M PRN BUCCAL DECREASED GLUCOSE; Start 12/14/18 at 22:30 CARMELO MAE December 16, 2018 15:33
[2018-12-16 20:00] VITALS: BP 125/71; PULSE 60; RESP 17
[2018-12-17] VITALS (19 sets, daily range): BP systolic 93–159; BP diastolic 44–98; PULSE 62–148; RESP 17–20
[2018-12-17] MEDS: DILTIAZEM 30 MG TAB PO SCH ×3 (05:22→22:00)
[2018-12-17] MEDS: LEVOTHYROXINE 125 MCG TAB PO SCH (05:23)
[2018-12-17] MEDS: PANTOPRAZOLE (EC) 40 MG TAB PO SCH (05:23)
[2018-12-17] MEDS: SEVELAMER CARBONATE 800 MG TABLET PO SCH ×3 (07:35→17:35)
[2018-12-17] MEDS: BUDESONIDE (NEB) 0.5MG/2ML AMP HHN SCH ×2 (07:38→20:00)
[2018-12-17] MEDS: INSULIN GLARGINE [LANTus] (100 UNITS/ML) SYG SC SCH (08:32)
[2018-12-17] MEDS: INSULIN ASPART [NOVOLOG] 3 ML PEN SC SCH ×4 (08:33→20:38)
[2018-12-17] MEDS: QUETIAPINE 25 MG TAB PO SCH ×4 (08:36→21:00)
[2018-12-17] MEDS: MULTIVIT/CA CARB/B CMPLX/FA TAB PO SCH (09:00)
--- NOTE | 2018-12-17 09:06 | PN ---
DATE: 12/17/2018 SUBJECTIVE: The patient is stable. No events overnight. No fever, chills, nausea, or vomiting. OBJECTIVE: VITAL SIGNS: Blood pressure is 128/65, respirations 18, pulse 75, temperature 98.2. HEENT: Head is normocephalic. NECK: Supple. HEART: Regular rate. LUNGS: Show diminished breath sounds at the base. ABDOMEN: Soft, nontender to palpation without rebound or guarding. EXTREMITIES: Negative for clubbing, cyanosis, no edema. DERMATOLOGIC: No rashes. MUSCULOSKELETAL: No joint effusion. NEUROLOGIC: No change in exam. MEDICATIONS: Reviewed. LABORATORY DATA: Reviewed. ASSESSMENT AND PLAN: 1. Oliguric acute kidney injury on top of chronic kidney disease stage IV, now likely progressed tow ards end-stage renal disease. The patient is currently dialysis dependant. There are no signs of re nal recovery. Plan is for hemodialysis today. 2. Anemia. Monitor hemoglobin and hematocrit levels. Continue Epogen. 3. Mineral bone disorder, monitor calcium and phosphorus levels. Continue phosphate binders. 4. Encephalopathy, etiology is toxic metabolic, improving. Continue to monitor. 5. Coronary artery disease. Continue medical management. 6. Diabetes. Continue current insulin regimen. 7. Hypothyroidism. Continue Synthroid. 8. History of atrial fibrillation. 9. Thrombocytopenia. Continue to monitor. 10. Hypertension. Continue current blood pressure regimen. Dictated By: SUSY ABARCA/NTS Conf#: [id number] DID#: [id number] CC: NEREIDA MCQUEEN MD;*EndCC*
--- NOTE | 2018-12-17 09:58 | PN ---
Date/Time of Note Date/Time of Note DATE: 12/17/18 TIME: 09:57 Objective Vital Signs Date Temp Pulse Resp B/P (MAP) Pulse Ox O2 O2 Flow FiO2 Time Delivery Rate 12/17/18 98.2 78 19 128/65 92 07:54 (86) 12/17/18 21 07:41 12/16/18 Nasal 2.0 21:00 Cannula Intake and Output 12/16/18 12/16/18 12/17/18 1515:00 23:00 07:00 IntakeIntake Total 800 ml 180 ml OutputOutput Total 30 ml BalanceBalance 770 ml 180 ml Exam INTERDISCIPLINARY TEAM CONFERENCE Attended by PT, OT, ST, Endoscopic Technician, Social Work, Rehabilitation Nursing, Fitness Centre Manager and WarpmanCafeteria Director Exam: Pulm- cta Abd-soft BOWEL- Cont BLADDER-HD SKIN- intact OT- DRESSING-cga UB/ max LB BATHING-cga UB/ max LB TOILETING-cga UB/ max LB PT- BED MOBILITY-max TRANSFERS-max AMBULATION-max SPEECH- COGNITION-max Dysphagia- puree A/P- Interdisciplinary team conference held today. Please see interdisciplinary sheet. Patient here on trail, and needs maximum encouragement for participation. SW working on supervised dc options, may need SNF if participation does not improve with interdisciplinary measures. Results/Medications Result Diagram: 12/15/18 0642 12/15/18 0642 Results 24 hrs Laboratory Tests Test 12/16/18 12:25 12/16/18 18:10 12/16/18 20:31 12/17/18 08:24 Bedside Glucose 140 247 H 153 227 H Medications Current Medications Miscellaneous Information (Pending [facility] Order For Wound Care) This patient miles... PRN PRN XX WOUND CARE; Start 12/14/18 at 19:00 Acetaminophen (Tylenol Supp) 650 mg Q4H PRN [place] MILD PAIN(1-3) OR TEMP>38C; Start 12/14/18 at 22:00 Acetaminophen (Tylenol Liquid) 650 mg Q4H PRN PO MILD PAIN(1-3)OR ELEVATED TEMP Last administered on 12/14/18at 23:58; Admin Dose 650 MG; Start 12/14/18 at 22:00 Albumin Human 100 ml @ 100 mls/hr DURING DIALYSIS PRN IV HYPOTENTION DURING HD; Start 12/14/18 at 22:00 Albuterol/ Ipratropium (Duoneb) 3 ml Q6H RESP THERAPY PRN HHN SHORTNESS OF BREATH; Start 12/14/18 at 22:00 Budesonide (Pulmicort (Neb)) 0.5 mg BID RESP THERAPY HHN Last administered on 12/17/18at 07:38; Admin Dose 0.5 MG; Start 12/14/18 at 22:00 Clonidine HCl (Catapres-Tts 2 Patch) 1 patch Q7D TRANSDERM ; Start 12/17/18 at 13:00 Diltiazem HCl (Cardizem) 30 mg Q8 PO Last administered on 12/16/18at 15:11; Admin Dose 30 MG; Start 12/14/18 at 23:00 Docusate Sodium (Colace) 100 mg BID PRN PO CONSTIPATION; Start 12/14/18 at 22:00 Epoetin Kavon-epbx (RETACRIT(esrd)) 10,000 unit MoWeFr@1700 SC ; Start 12/17/18 at 17:00 Hydralazine HCl (Apresoline) 10 mg Q6H PRN IV SBP >160; Start 12/14/18 at 22:30 Hydralazine HCl (Apresoline) 25 mg Q6H PRN PO high blood pressure; Start 12/14/18 at 22:30 Insulin Aspart (Novolog Insulin Pen) NOVOLOG *MILD* ALGORITHM WITH MEALS BEDTIME SC Last administered on 12/17/18 08:33; Admin Dose 3 UNIT; Start 12/14/18 at 23:00 Insulin Glargine (Lantus) 10 units DAILY@0800 SC Last administered on 12/17/18 08:32; Admin Dose 10 UNITS; Start 12/15/18 at 08:00 Levothyroxine Sodium (Synthroid) 125 mcg DAILY@06 PO Last administered on 12/15/18 07:07; Admin Dose 125 MCG; Start 12/15/18 at 06:00 Metoprolol Tartrate (Lopressor) 75 mg BID PO Last administered on 12/16/18at 20:33; Admin Dose 75 MG; Start 12/14/18 at 22:30 Multivit/Ca Carb/ B Cmplx/FA/Prenat (Lalita-Romain) 1 tab DAILY PO ; Start 12/15/18 at 09:00 Ondansetron HCl (Zofran Inj) 4 mg Q4H PRN IV NAUSEA AND/OR VOMITING Last administered on 12/16/18at 00:54; Admin Dose 4 MG; Start 12/14/18 at 22:30 Pantoprazole (Protonix Tab) 40 mg DAILY@06 PO Last administered on 12/15/18at 07:07; Admin Dose 40 MG; Start 12/15/18 at 06:00 Polyethylene Glycol (Miralax) 17 gm DAILY PO ; Start 12/15/18 at 09:00 Quetiapine Fumarate (Seroquel) 25 mg QHS PO Last administered on 12/16/18at 20:33; Admin Dose 25 MG; Start 12/14/18 at 22:30 Quetiapine Fumarate (Seroquel) 12.5 mg BID WITH MEALS PO Last administered on 12/17/18at 08:36; Admin Dose 12.5 MG; Start 12/15/18 at 07:35 IV Flush (NS 10 ml) 10 ml PRN PRN IV IV PROTOCOL; Start 12/14/18 at 22:30 Sevelamer Carbonate (Renvela) 800 mg WITH MEALS PO Last administered on 12/15/18at 17:54; Admin Dose 800 MG; Start 12/15/18 at 07:35 Miscellaneous Information 1 ea NOTE XX ; Start 12/14/18 at 22:30 Glucose (Glutose) 15 gm Q15M PRN PO DECREASED GLUCOSE; Start 12/14/18 at 22:30 Glucose (Glutose) 22.5 gm Q15M PRN PO DECREASED GLUCOSE; Start 12/14/18 at 22:30 Dextrose (D50w Syringe) 25 ml Q15M PRN IV DECREASED GLUCOSE; Start 12/14/18 at 22:30 Dextrose (D50w Syringe) 50 ml Q15M PRN IV DECREASED GLUCOSE; Start 12/14/18 at 22:30 Glucagon (Glucagen) 1 mg Q15M PRN IM DECREASED GLUCOSE; Start 12/14/18 at 22:30 Glucose (Glutose) 15 gm Q15M PRN BUCCAL DECREASED GLUCOSE; Start 12/14/18 at 22:30 BALA BROOKE MD December 17, 2018 09:57
[2018-12-17] MEDS: POLYETHYLENE GLYCOL 17 GM PACKET PO SCH (11:23)
[2018-12-17] MEDS: METOPROLOL 25 MG TAB PO SCH ×3 (11:25→21:00)
[2018-12-17] MEDS ORDERED: QUETIAPINE 25 MG TAB PO ONE (12:30)
[2018-12-17] MEDS ORDERED: CLONIDINE 0.2 MG/24 HR PATCH TRANSDERM SCH (13:00)
--- NOTE | 2018-12-17 14:05 | CONS ---
Assessment/Plan Assessment/Plan Hospital Course (Demo Recall) IMPRESSION: 1. Hypotension-overall improved and not on pressors currently and now HTN requiring medications with reasonable control 2. Atrial fibrillation, primarily rate controlled off of antihypertensives at this time. 3. Anemia, worsening with guaiac positive stool consistent with gastr ointestinal bleed. 4. Diabetes mellitus. 5. Acute on chronic renal failure,now on hemodialysis. 6. Altered mental state. 7. Diastolic congestive heart failure due to a preserved EF by most recent echo and findings by chest x-ray. 8. History of coronary artery disease, nonobstructive by outside hospital catheterization. 9. Shortness of breath with hypothyroidism. 10. Diabetes mellitus. 11.UTI Recc: -Now in rehab -Continue BB/clonidine TTS and now CCB as patient will comply as refused CCB today -HD for volume removal -Follow HR/rhythm closely -not on anticoagulation secondary to GIB/anemia requiring transfusion -Family refusing endoscopy -PT -12 lead ecg to document rhythm Consultation Date/Type/Reason Admit Date/Time December 14, 2018 at 18:28 Initial Consult Date 12/15/18 Type of Consult Cardiology Reason for Consultation AF Requesting Provider: NEREIDA MCQUEEN MD Date/Time of Note DATE: 12/17/18 TIME: 14:03 Exam/Review of Systems Vital Signs Vitals Vital Signs Date Temp Pulse Resp B/P (MAP) Pulse Ox O2 O2 Flow FiO2 Time Delivery Rate 12/17/18 98.2 78 19 128/65 92 07:54 (86) 12/17/18 21 07:41 12/16/18 Nasal 2.0 21:00 Cannula Intake and Output 12/16/18 12/16/18 12/17/18 1515:00 23:00 07:00 IntakeIntake Total 800 ml 180 ml OutputOutput Total 30 ml BalanceBalance 770 ml 180 ml Exam Exam Review of Systems: CONSTITUTIONAL: No fevers, chills. PULMONARY: No sob CARDIOVASCULAR: No chest pain/palpitations GASTROINTESTINAL: No nausea/vomiting. GENITOURINARY: No hematuria/dysuria. MUSCULOSKELETAL: No myagias/arthalgias. PSYCHIATRIC: The patient denies depression. NEUROLOGIC: No weakness Constitutional: alert Psych: no complaints Head: normocephalic ENMT: mucosa pink and moist Neck: supple, jvd (9 cm water) Respiratory: diminished breath sounds (at bases/B) Cardiovascular: regular rate and rhythm Gastrointestinal: soft, non-tender Musculoskeletal: muscle weakness (mild generalized) Extremities: edema (none) Neurological: other (No focal deficits) Labs Result Diagram: 12/15/18 0642 12/15/18 0642 Results 24hrs Laboratory Tests Test 12/16/18 18:10 12/16/18 20:31 12/17/18 08:24 12/17/18 11:18 Bedside Glucose 247 H 153 227 H 219 Medications Medications Current Medications Miscellaneous Information (Pending [facility] Order For Wound Care) This patient miles... PRN PRN XX WOUND CARE; Start 12/14/18 at 19:00 Acetaminophen (Tylenol Supp) 650 mg Q4H PRN [place] MILD PAIN(1-3) OR TEMP>38C; Start 12/14/18 at 22:00 Acetaminophen (Tylenol Liquid) 650 mg Q4H PRN PO MILD PAIN(1-3)OR ELEVATED TEMP Last administered on 12/14/18at 23:58; Admin Dose 650 MG; Start 12/14/18 at 22:00 Albumin Human 100 ml @ 100 mls/hr DURING DIALYSIS PRN IV HYPOTENTION DURING HD; Start 12/14/18 at 22:00 Albuterol/ Ipratropium (Duoneb) 3 ml Q6H RESP THERAPY PRN HHN SHORTNESS OF BREATH; Start 12/14/18 at 22:00 Budesonide (Pulmicort (Neb)) 0.5 mg BID RESP THERAPY HHN Last administered on 12/17/18at 07:38; Admin Dose 0.5 MG; Start 12/14/18 at 22:00 Clonidine HCl (Catapres-Tts 2 Patch) 1 patch Q7D TRANSDERM ; Start 12/17/18 at 13:00 Diltiazem HCl (Cardizem) 30 mg Q8 PO Last administered on 12/16/18at 15:11; Admin Dose 30 MG; Start 12/14/18 at 23:00 Docusate Sodium (Colace) 100 mg BID PRN PO CONSTIPATION; Start 12/14/18 at 22:00 Epoetin Kavon-epbx (RETACRIT(esrd)) 10,000 unit MoWeFr@1700 SC ; Start 12/17/18 at 17:00 Hydralazine HCl (Apresoline) 10 mg Q6H PRN IV SBP >160; Start 12/14/18 at 22:30 Hydralazine HCl (Apresoline) 25 mg Q6H PRN PO high blood pressure; Start 12/14/18 at 22:30 Insulin Aspart (Novolog Insulin Pen) NOVOLOG *MILD* ALGORITHM WITH MEALS BEDTIME SC Last administered on 12/17/18 11:22; Admin Dose 2 UNIT; Start 12/14/18 at 23:00 Insulin Glargine (Lantus) 10 units DAILY@0800 SC Last administered on 12/17/18 08:32; Admin Dose 10 UNITS; Start 12/15/18 at 08:00 Levothyroxine Sodium (Synthroid) 125 mcg DAILY@06 PO Last administered on 12/15 07:07; Admin Dose 125 MCG; Start 12/15/18 at 06:00 Metoprolol Tartrate (Lopressor) 75 mg BID PO Last administered on 12/17/18 11:25; Admin Dose 75 MG; Start 12/14/18 at 22:30 Multivit/Ca Carb/ B Cmplx/FA/Prenat (Lalita-Romain) 1 tab DAILY PO ; Start 12/15/18 at 09:00 Ondansetron HCl (Zofran Inj) 4 mg Q4H PRN IV NAUSEA AND/OR VOMITING Last administered on 12/16/18 00:54; Admin Dose 4 MG; Start 12/14/18 at 22:30 Pantoprazole (Protonix Tab) 40 mg DAILY@06 PO Last administered on 12/15/18 07:07; Admin Dose 40 MG; Start 12/15/18 at 06:00 Polyethylene Glycol (Miralax) 17 gm DAILY PO Last administered on 12/17/18 11:23; Admin Dose 17 GM; Start 12/15/18 at 09:00 Quetiapine Fumarate (Seroquel) 25 mg QHS PO Last administered on 12/16/18 20:33; Admin Dose 25 MG; Start 12/14/18 at 22:30 IV Flush (NS 10 ml) 10 ml PRN PRN IV IV PROTOCOL; Start 12/14/18 at 22:30 Sevelamer Carbonate (Renvela) 800 mg WITH MEALS PO Last administered on 5/6/19at 11:23; Admin Dose 800 MG; Start 12/15/18 at 07:35 Miscellaneous Information 1 ea NOTE XX ; Start 12/14/18 at 22:30 Glucose (Glutose) 15 gm Q15M PRN PO DECREASED GLUCOSE; Start 12/14/18 at 22:30 Glucose (Glutose) 22.5 gm Q15M PRN PO DECREASED GLUCOSE; Start 12/14/18 at 22:30 Dextrose (D50w Syringe) 25 ml Q15M PRN IV DECREASED GLUCOSE; Start 12/14/18 at 22:30 Dextrose (D50w Syringe) 50 ml Q15M PRN IV DECREASED GLUCOSE; Start 12/14/18 at 22:30 Glucagon (Glucagen) 1 mg Q15M PRN IM DECREASED GLUCOSE; Start 12/14/18 at 22:30 Glucose (Glutose) 15 gm Q15M PRN BUCCAL DECREASED GLUCOSE; Start 12/14/18 at 22:30 Quetiapine Fumarate (Seroquel) 25 mg BID WITH MEALS PO ; Start 12/17/18 at 17:35 CARMELO MAE December 17, 2018 14:05
[2018-12-17] MEDS ORDERED: EPOETIN ALFA-EPBX (ESRD) 10,000 UNIT/ML VIAL SC SCH (17:00)
[2018-12-17] MEDS ORDERED: LORAZEPAM 0.5 MG TAB PO ONE (17:30)
--- NOTE | 2018-12-17 17:49 | PN ---
Date/Time of Note Date/Time of Note DATE: 12/17/18 TIME: 17:49 Assessment/Plan VTE Prophylaxis Risk score (from Ns)>0 risk: 4 SCD applied (from [facility] [place]): Yes Pharmacological prophylaxis: NA/contraindicated Pharm contraindication: thrombocytopenia Lines/Catheters IV Catheter Type (from [facility]): Mid Line Central line still needed: Yes Urinary Cath still in place: No Assessment/Plan Assessment/Plan Patient is confused, agitated, Ativan p.o. was ordered before hemodialysis. Assessment/Plan -Acute kidney injury on chronic kidney disease progressed to hemodialysis dependent end-stage renal disease. Patient was initiated on hemodialysis on 11/27/2018. Continue hemodialysis per nephrology Dr. Sadler is following in nephrology consultation. -Acute metabolic encephalopathy. CT revealed white matter disease compatible with chronic small vessel ischemia. -Atrial fibrillation. Dr. Sy is following in cardiology consultation. -CHF -Hypertension -Anemia multifactorial chronic disease and possible GI bleed. -Diabetes. Continue Lantus and sliding scale insulin. -Hypothyroidism. Continue Synthroid. -Asthma. Continue Pulmicort. -Thrombocytopenia. Further recommendations based on clinical course. Plan of care discussed with Dr. Lind. Result Diagram: 12/15/18 0642 12/15/18 0642 Results 24hrs Laboratory Tests Test 12/16/18 18:10 12/16/18 20:31 12/17/18 08:24 12/17/18 11:18 Bedside Glucose 247 H 153 227 H 219 Test 12/17/18 15:40 12/17/18 17:37 Hemoglobin A1c 6.5 H Bedside Glucose 171 Exam/Review of Systems Exam Vitals Vital Signs Date Temp Pulse Resp B/P (MAP) Pulse Ox O2 O2 Flow FiO2 Time Delivery Rate 12/17/18 115 17:25 12/17/18 20 122/82 95 Room Air 16:47 (95) 12/17/18 98.2 14:00 12/17/18 2.0 08:30 12/17/18 21 07:41 Intake and Output 12/16/18 12/16/18 12/17/18 1515:00 23:00 07:00 IntakeIntake Total 800 ml 180 ml OutputOutput Total 30 ml BalanceBalance 770 ml 180 ml Exam Constitutional: alert, confused Respiratory: diminished breath sounds Cardiovascular: irregular rhythm Gastrointestinal: soft, non-tender Musculoskeletal: nl extremities to inspection Extremities: normal pulses Right femoral Eliseo catheter Results Results 24hrs Laboratory Tests Test 12/16/18 18:10 12/16/18 20:31 12/17/18 08:24 12/17/18 11:18 Bedside Glucose 247 H 153 227 H 219 Test 12/17/18 15:40 12/17/18 17:37 Hemoglobin A1c 6.5 H Bedside Glucose 171 Medications Medication Current Medications Miscellaneous Information (Pending [facility] Order For Wound Care) This patient miles... PRN PRN XX WOUND CARE; Start 12/14/18 at 19:00 Acetaminophen (Tylenol Supp) 650 mg Q4H PRN [place] MILD PAIN(1-3) OR TEMP>38C; Start 12/14/18 at 22:00 Acetaminophen (Tylenol Liquid) 650 mg Q4H PRN PO MILD PAIN(1-3)OR ELEVATED TEMP Last administered on 12/14/18at 23:58; Admin Dose 650 MG; Start 12/14/18 at 22:00 Albumin Human 100 ml @ 100 mls/hr DURING DIALYSIS PRN IV HYPOTENTION DURING HD; Start 12/14/18 at 22:00 Albuterol/ Ipratropium (Duoneb) 3 ml Q6H RESP THERAPY PRN HHN SHORTNESS OF BREATH; Start 12/14/18 at 22:00 Budesonide (Pulmicort (Neb)) 0.5 mg BID RESP THERAPY HHN Last administered on 12/17/18at 07:38; Admin Dose 0.5 MG; Start 12/14/18 at 22:00 Clonidine HCl (Catapres-Tts 2 Patch) 1 patch Q7D TRANSDERM ; Start 12/17/18 at 13:00 Diltiazem HCl (Cardizem) 30 mg Q8 PO Last administered on 12/16/18at 15:11; Admin Dose 30 MG; Start 12/14/18 at 23:00 Docusate Sodium (Colace) 100 mg BID PRN PO CONSTIPATION; Start 12/14/18 at 22:00 Epoetin Kavon-epbx (RETACRIT(esrd)) 10,000 unit MoWeFr@1700 SC ; Start 12/17/18 at 17:00 Hydralazine HCl (Apresoline) 10 mg Q6H PRN IV SBP >160; Start 12/14/18 at 22:30 Hydralazine HCl (Apresoline) 25 mg Q6H PRN PO high blood pressure; Start 12/14/18 at 22:30 Insulin Aspart (Novolog Insulin Pen) NOVOLOG *MILD* ALGORITHM WITH MEALS BEDTIME SC Last administered on 12/17/18 17:39; Admin Dose 1 UNIT; Start 12/14/18 at 23:00 Insulin Glargine (Lantus) 10 units DAILY@0800 SC Last administered on 12/17/18 08:32; Admin Dose 10 UNITS; Start 12/15/18 at 08:00 Levothyroxine Sodium (Synthroid) 125 mcg DAILY@06 PO Last administered on 12/15/18 07:07; Admin Dose 125 MCG; Start 12/15/18 at 06:00 Metoprolol Tartrate (Lopressor) 75 mg BID PO Last administered on 12/17/18 11:25; Admin Dose 75 MG; Start 12/14/18 at 22:30 Multivit/Ca Carb/ B Cmplx/FA/Prenat (Lalita-Romain) 1 tab DAILY PO ; Start 12/15/18 at 09:00 Ondansetron HCl (Zofran Inj) 4 mg Q4H PRN IV NAUSEA AND/OR VOMITING Last administered on 12/16/18 00:54; Admin Dose 4 MG; Start 12/14/18 at 22:30 Pantoprazole (Protonix Tab) 40 mg DAILY@06 PO Last administered on 12/15/18 07:07; Admin Dose 40 MG; Start 12/15/18 at 06:00 Polyethylene Glycol (Miralax) 17 gm DAILY PO Last administered on 12/17/18 11 :23; Admin Dose 17 GM; Start 12/15/18 at 09:00 Quetiapine Fumarate (Seroquel) 25 mg QHS PO Last administered on 12/16/18 20:33; Admin Dose 25 MG; Start 12/14/18 at 22:30 IV Flush (NS 10 ml) 10 ml PRN PRN IV IV PROTOCOL; Start 12/14/18 at 22:30 Sevelamer Carbonate (Renvela) 800 mg WITH MEALS PO Last administered on 12/17/18 11:23; Admin Dose 800 MG; Start 5/4/19 at 07:35 Miscellaneous Information 1 ea NOTE XX ; Start 12/14/18 at 22:30 Glucose (Glutose) 15 gm Q15M PRN PO DECREASED GLUCOSE; Start 12/14/18 at 22:30 Glucose (Glutose) 22.5 gm Q15M PRN PO DECREASED GLUCOSE; Start 12/14/18 at 22:30 Dextrose (D50w Syringe) 25 ml Q15M PRN IV DECREASED GLUCOSE; Start 12/14/18 at 22:30 Dextrose (D50w Syringe) 50 ml Q15M PRN IV DECREASED GLUCOSE; Start 12/14/18 at 22:30 Glucagon (Glucagen) 1 mg Q15M PRN IM DECREASED GLUCOSE; Start 12/14/18 at 22:30 Glucose (Glutose) 15 gm Q15M PRN BUCCAL DECREASED GLUCOSE; Start 12/14/18 at 22:30 Quetiapine Fumarate (Seroquel) 25 mg BID WITH MEALS PO Last administered on 12/17/18at 15:50; Admin Dose 25 MG; Start 12/17/18 at 17:35 GENNY SULLIVAN December 17, 2018 17:49
[2018-12-17] MEDS: HALOPERIDOL 5 MG INJ IM PRN (23:28)
[2018-12-18] MEDS ORDERED: ACCUCHECK AT 2AM (Patients on SS coverage) XX SCH (02:00)
[2018-12-18 02:14] VITALS: BP 122/63; PULSE 92
[2018-12-18] MEDS: LEVOTHYROXINE 125 MCG TAB PO SCH ×2 (06:00→06:43)
[2018-12-18] MEDS: PANTOPRAZOLE (EC) 40 MG TAB PO SCH ×2 (06:00→06:43)
[2018-12-18] MEDS: DILTIAZEM 30 MG TAB PO SCH ×3 (06:00→14:00)
[2018-12-18 06:30] VITALS: BP 130/84; PULSE 96; RESP 16
[2018-12-18 07:25] VITALS: BP 115/82; PULSE 120; RESP 18
[2018-12-18] MEDS: QUETIAPINE 25 MG TAB PO SCH (07:35)
[2018-12-18] MEDS: INSULIN ASPART [NOVOLOG] 3 ML PEN SC SCH ×2 (07:35→12:05)
[2018-12-18] MEDS: SEVELAMER CARBONATE 800 MG TABLET PO SCH ×2 (07:35→12:00)
[2018-12-18] MEDS: INSULIN GLARGINE [LANTus] (100 UNITS/ML) SYG SC SCH (08:00)
--- NOTE | 2018-12-18 08:51 | PN ---
DATE: 12/18/2018 SUBJECTIVE: The patient is stable. The patient is confused, has episodes of aggressive behavior. T he patient had hemodialysis yesterday, tolerated well. OBJECTIVE: VITAL SIGNS: Blood pressure is 115/82, respirations 18, pulse 120, temperature 97.8. HEENT: Head is normocephalic. NECK: Supple. HEART: Regular rate. LUNGS: Show diminished breath sounds at the base. ABDOMEN: Soft, nontender to palpation without rebound or guarding. EXTREMITIES: Negative for clubbing, cyanosis, no edema. DERMATOLOGIC: No rashes. MUSCULOSKELETAL: No joint effusion. NEUROLOGIC: No change in exam. MEDICATIONS: Reviewed. LABORATORY DATA: From 12/15/2018 was reviewed. ASSESSMENT AND PLAN: 1. Anuric acute kidney injury on top of chronic kidney disease stage IV, now likely progressed towar ds end-stage renal disease. The patient is currently dialysis dependent. We will monitor for any si gns of renal recovery. Plan is for hemodialysis tomorrow. 2. Anemia. Continue to monitor hemoglobin and hematocrit levels. Continue Epogen. 3. Mineral bone disorder, monitor calcium and phosphorus levels. Continue phosphate binders. 4. Encephalopathy, etiology is toxic metabolic, improving. Continue to monitor. 5. Coronary artery disease. Continue medical management. 6. Diabetes. Continue current insulin regimen. 7. Hypothyroidism. Continue Synthroid. 8. History of atrial fibrillation. 9. Thrombocytopenia. Continue to monitor. 10. Hypertension. Continue current blood pressure regimen. Dictated By: SUSY CISNEROS DO NR/NTS Conf#: [id number] DID#: [id number] CC: NEREIDA MCQUEEN MD;*EndCC*
[2018-12-18] MEDS: MULTIVIT/CA CARB/B CMPLX/FA TAB PO SCH (09:00)
[2018-12-18] MEDS: BUDESONIDE (NEB) 0.5MG/2ML AMP HHN SCH (09:00)
[2018-12-18] MEDS: POLYETHYLENE GLYCOL 17 GM PACKET PO SCH (09:00)
[2018-12-18] MEDS: METOPROLOL 25 MG TAB PO SCH (09:00)
--- NOTE | 2018-12-18 10:44 | CONS ---
Consult Date/Type/Reason Admit Date/Time December 14, 2018 at 18:28 Initial Consult Date 12/15/18 Requesting Provider: NEREIDA MCQUEEN MD Date/Time of Note DATE: 12/18/18 TIME: 10:42 Subjective No acte events - dispo panned per rehab team - better overall. ROS: No fever, no chills, no nausea, no vomiting, no diarrhea/constipation Objective Vitals Vital Signs Date Temp Pulse Resp B/P (MAP) Pulse Ox O2 O2 Flow FiO2 Time Delivery Rate 12/18/18 97.8 120 18 115/82 90 Room Air 07:25 (93) 12/17/18 2.0 20:00 12/17/18 21 07:41 Intake and Output 12/17/18 12/17/18 12/18/18 1515:00 23:00 07:00 IntakeIntake Total 120 ml OutputOutput Total 2400 ml BalanceBalance -2400 ml 120 ml Exam General: WN/WD/NAD, AOx 1-2 HEENT: Unicetric/atraumatic/EOMI (follows commands) NECK: JVD elevated, no thyromegaly Lymph: no lymphadenopathy HEART: regular with no S3, II/ systolic murmur at apex, PMI L LUNGS: Coarse sounds ABD: soft, NT, ND, +BS : Intact Neuro: non focal SKIN: chronic changes EXT: trace edema Results/Medications Result Diagram: 12/15/18 0642 12/15/18 0642 Results 24 hrs Laboratory Tests Test 12/17/18 11:18 12/17/18 15:40 12/17/18 17:37 12/17/18 20:27 Bedside Glucose 219 171 306 H Hemoglobin A1c 6.5 H Test 12/18/18 02:18 Bedside Glucose 237 H Home Meds Reported Medications Alprazolam* (Alprazolam*) 0.25 Mg Tablet, 0.25 MG PO NEEDED PRN for ANXIETY, TAB 11/26/18 Magnesium Oxide* (Mag-Oxide*) 400 Mg Tablet, 400 MG PO BID, TAB 11/26/18 Losartan Potassium* (Losartan Potassium*) 50 Mg Tablet, 50 MG PO BID PRN for NEEDED, TAB 11/26/18 Atorvastatin Calcium* (Atorvastatin Calcium*) 20 Mg Tablet, 20 MG PO QHS, #30 TAB 11/26/18 Potassium Chloride* (Potassium Chloride*) 8 Meq Capsule.er, 8 MEQ PO DAILY, CAP 11/26/18 Dronedarone Hydrochloride* (Multaq*) 400 Mg Tablet, 400 MG PO BID, TAB 11/26/18 Insulin Aspart (Novolog) 100 Unit/1 Ml Cartridge, 8 UNIT SQ AC BREAKFAST DINNER 11/26/18 Clopidogrel Bisulfate* (Clopidogrel Bisulfate*) 75 Mg Tablet, 75 MG PO DAILY, #30 TAB 11/26/18 Carvedilol* (Carvedilol*) 3.125 Mg Tablet, 3.125 MG PO BID, #60 TAB 11/26/18 Gabapentin* (Gabapentin*) 300 Mg Capsule, 300 MG PO DAILY, #60 CAP NEEDED 11/26/18 Aspirin* (Aspirin* EC) 81 Mg Tablet.dr, 81 MG PO DAILY, TAB 11/26/18 Amlodipine Besylate* (Amlodipine Besylate*) 10 Mg Tablet, 10 MG PO DAILY, #30 TAB TAKE NEEDED 11/26/18 Famotidine* (Famotidine*) 20 Mg Tablet, 20 MG PO BID, #30 TAB 11/26/18 Furosemide* (Furosemide*) 40 Mg Tablet, 40 MG PO BID, TAB 11/26/18 Levothyroxine Sodium* (Levothyroxine Sodium*) 125 Mcg Tablet, 125 MCG PO BEFORE BREAKFAST, #30 TAB 11/26/18 Bisacodyl (Ducodyl) 5 Mg Tablet.dr, 5 MG PO NEEDED 11/26/18 Ergocalciferol (Vitamin D2) (VITAMIN D2) 50,000 Unit Capsule, 12029 UNIT PO Q SAT, CAP 11/26/18 Lisinopril* (Lisinopril*) 5 Mg Tablet, 5 MG PO DAILY, #30 TAB TAKE NEEDED 11/26/18 Clonidine Hcl* (Clonidine Hcl*) 0.2 Mg Tablet, 0.2 MG PO BID PRN for HTN, TAB 11/26/18 Clonidine Patch (CLONIDINE PATCH) 0.2 Mg/24 Hr Patch, 1 PATCH.WK TD Q7D, #4 PATCH.WK 11/26/18 Hydralazine Hcl* (Apresoline*) 50 Mg Tab, 50 MG PO BID PRN for HTN, #60 TAB TAKE NEEDED 11/26/18 Insulin Glargine,Hum.rec.anlog (Basaglleyla [place]pen U-100) 100 Unit/1 Ml Insuln.pen, 40 UNIT SC QHS, EA 11/26/18 Docusate Sodium* (Colace*) 250 Mg Capsule, 250 MG PO BID, #60 CAP 11/26/18 Ferrous Sulfate* (Ferrous Sulfate*) 325 Mg Tabec, 325 MG PO BID, TAB 11/26/18 Medications Current Medications Miscellaneous Information (Pending Santyl Order For Wound Care) This patient miles... PRN PRN XX WOUND CARE; Start 12/14/18 at 19:00 Acetaminophen (Tylenol Supp) 650 mg Q4H PRN AR MILD PAIN(1-3) OR TEMP>38C; Start 12/14/18 at 22:00 Acetaminophen (Tylenol Liquid) 650 mg Q4H PRN PO MILD PAIN(1-3)OR ELEVATED TEMP Last administered on 12/14/18at 23:58; Admin Dose 650 MG; Start 12/14/18 at 22:00 Albumin Human 100 ml @ 100 mls/hr DURING DIALYSIS PRN IV HYPOTENTION DURING HD; Start 12/14/18 at 22:00 Albuterol/ Ipratropium (Duoneb) 3 ml Q6H RESP THERAPY PRN HHN SHORTNESS OF BREATH; Start 12/14/18 at 22:00 Budesonide (Pulmicort (Neb)) 0.5 mg BID RESP THERAPY HHN Last administered on 12/17/18at 07:38; Admin Dose 0.5 MG; Start 12/14/18 at 22:00 Clonidine HCl (Catapres-Tts 2 Patch) 1 patch Q7D TRANSDERM ; Start 12/17/18 at 13:00 Diltiazem HCl (Cardizem) 30 mg Q8 PO Last administered on 12/16/18at 15:11; Admin Dose 30 MG; Start 12/14/18 at 23:00 Docusate Sodium (Colace) 100 mg BID PRN PO CONSTIPATION; Start 12/14/18 at 22:00 Epoetin Kavon-epbx (RETACRIT(esrd)) 10,000 unit MoWeFr@1700 SC Last administered on 12/17/18at 20:30; Admin Dose 10,000 UNIT; Start 12/17/18 at 17:00 Hydralazine HCl (Apresoline) 10 mg Q6H PRN IV SBP >160; Start 12/14/18 at 22:30 Hydralazine HCl (Apresoline) 25 mg Q6H PRN PO high blood pressure; Start 12/14/18 at 22:30 Insulin Aspart (Novolog Insulin Pen) NOVOLOG *MILD* ALGORITHM WITH MEALS BEDTIME SC Last administered on 12/17/18 20:38; Admin Dose 4 UNIT; Start 12/14/18 at 23:00 Insulin Glargine (Lantus) 10 units DAILY@0800 SC Last administered on 12/17/18 08:32; Admin Dose 10 UNITS; Start 12/15/18 at 08:00 Levothyroxine Sodium (Synthroid) 125 mcg DAILY@06 PO Last administered on 12/15/18 07:07; Admin Dose 125 MCG; Start 12/15/18 at 06:00 Metoprolol Tartrate (Lopressor) 75 mg BID PO Last administered on 12/17/18 11:25; Admin Dose 75 MG; Start 12/14/18 at 22:30 Multivit/Ca Carb/ B Cmplx/FA/Prenat (Lalita-Romain) 1 tab DAILY PO ; Start 12/15/18 at 09:00 Ondansetron HCl (Zofran Inj) 4 mg Q4H PRN IV NAUSEA AND/OR VOMITING Last administered on 12/16/18 00:54; Admin Dose 4 MG; Start 12/14/18 at 22:30 Pantoprazole (Protonix Tab) 40 mg DAILY@06 PO Last administered on 12/15/18 07:07; Admin Dose 40 MG; Start 12/15/18 at 06:00 Polyethylene Glycol (Miralax) 17 gm DAILY PO Last administered on 12/17/18 11:23; Admin Dose 17 GM; Start 12/15/18 at 09:00 Quetiapine Fumarate (Seroquel) 25 mg QHS PO Last administered on 12/16/18 20:33; Admin Dose 25 MG; Start 12/14/18 at 22:30 IV Flush (NS 10 ml) 10 ml PRN PRN IV IV PROTOCOL; Start 12/14/18 at 22:30 Sevelamer Carbonate (Renvela) 800 mg WITH MEALS PO Last administered on 5/6/19at 11:23; Admin Dose 800 MG; Start 12/15/18 at 07:35 Miscellaneous Information 1 ea NOTE XX ; Start 12/14/18 at 22:30 Glucose (Glutose) 15 gm Q15M PRN PO DECREASED GLUCOSE; Start 12/14/18 at 22:30 Glucose (Glutose) 22.5 gm Q15M PRN PO DECREASED GLUCOSE; Start 12/14/18 at 22:30 Dextrose (D50w Syringe) 25 ml Q15M PRN IV DECREASED GLUCOSE; Start 12/14/18 at 22:30 Dextrose (D50w Syringe) 50 ml Q15M PRN IV DECREASED GLUCOSE; Start 12/14/18 at 22:30 Glucagon (Glucagen) 1 mg Q15M PRN IM DECREASED GLUCOSE; Start 12/14/18 at 22:30 Glucose (Glutose) 15 gm Q15M PRN BUCCAL DECREASED GLUCOSE; Start 12/14/18 at 22:30 Quetiapine Fumarate (Seroquel) 25 mg BID WITH MEALS PO Last administered on 12/17/18at 15:50; Admin Dose 25 MG; Start 12/17/18 at 17:35 Haloperidol (Haldol) 2 mg Q8H PRN IM AGITATION Last administered on 12/17/18at 23:28; Admin Dose 2 MG; Start 12/17/18 at 22:30 Diagnostic Test (Pha) (Accu-Chek) 1 ea 02 XX ; Start 12/18/18 at 02:00 Assessment/Plan Hospital Course (Demo Recall) 1. Hypotension-overall improved and not on pressors currently and now HTN requiring medications with reasonable control - improved now 2. Atrial fibrillation, primarily rate controlled off of antihypertensives at this time. Rate controlled. 3. Anemia, worsening with guaiac positive stool consistent with gastrointestinal bleed. 4. Diabetes mellitus- on meds, keep eglycemic. 5. Acute on chronic renal failure,now on hemodialysis - renal team follows. 6. Altered mental state. 7. Diastolic congestive heart failure due to a preserved EF by most recent echo and findings by chest x-ray. 8. History of coronary artery disease, nonobstructive by outside hospital catheterization. 9. Shortness of breath with hypothyroidism - improved now. 10. Diabetes mellitus. 11.UTI - teated with anti-Bx ALFRED PEPE MD December 18, 2018 10:44
--- NOTE | 2018-12-18 13:01 | DS ---
Date/Time of Note Date/Time of Note DATE: 12/18/18 TIME: 13:00 Discharge Summary Admission/Discharge Info Admit Date/Time December 14, 2018 at 18:28 Discharge Date/Time Discharge Diagnosis 1. Toxic metabolic encephalopathy. 2. Pulmonary debility, status post respiratory failure. 3. Acute on chronic kidney disease currently on hemodialysis. 4. Oropharyngeal dysphagia on pureed diet. 5. Mineral bone disease. 6. Diabetes mellitus type 2. 7. Coronary artery disease. 8. Hypothyroidism. 9. Hypertension. 10. Atrial fibrillation. 11. Congestive heart failure. 12. Urinary tract infection. 13. History of thrombocytosis. 14. Impairments in self-care, mobility and cognition. Patient Condition: Fair Hospital Course The patient was admitted for comprehensive interdisciplinary rehabilitation . She required encouragement for participating and verbal cues for cognition and safety. DC options reviewed with family, and they requested that the patient DC home with them and they would provide 24 hour supervision. Arrangements made for hemodialysis followup. Patient is being discharged home with the recommendation of home health PT, OT and RN follow up. The DC meds are per the medication reconciliation sheet. The discharge equipment recommendations include: FWW, BSC, shower chair, wheelchair, hospital bed. The patient will follow up with PMD upon DC. Home Meds Reported Medications Alprazolam* (Alprazolam*) 0.25 Mg Tablet, 0.25 MG PO NEEDED PRN for ANXIETY, TAB 11/26/18 Magnesium Oxide* (Mag-Oxide*) 400 Mg Tablet, 400 MG PO BID, TAB 11/26/18 Losartan Potassium* (Losartan Potassium*) 50 Mg Tablet, 50 MG PO BID PRN for NEEDED, TAB 11/26/18 Atorvastatin Calcium* (Atorvastatin Calcium*) 20 Mg Tablet, 20 MG PO QHS, #30 TAB 11/26/18 Potassium Chloride* (Potassium Chloride*) 8 Meq Capsule.er, 8 MEQ PO DAILY, CAP 11/26/18 Dronedarone Hydrochloride* (Multaq*) 400 Mg Tablet, 400 MG PO BID, TAB 11/26/18 Insulin Aspart (Novolog) 100 Unit/1 Ml Cartridge, 8 UNIT SQ AC BREAKFAST DINNER 11/26/18 Clopidogrel Bisulfate* (Clopidogrel Bisulfate*) 75 Mg Tablet, 75 MG PO DAILY, #30 TAB 11/26/18 Carvedilol* (Carvedilol*) 3.125 Mg Tablet, 3.125 MG PO BID, #60 TAB 11/26/18 Gabapentin* (Gabapentin*) 300 Mg Capsule, 300 MG PO DAILY, #60 CAP NEEDED 11/26/18 Aspirin* (Aspirin* EC) 81 Mg Tablet.dr, 81 MG PO DAILY, TAB 11/26/18 Amlodipine Besylate* (Amlodipine Besylate*) 10 Mg Tablet, 10 MG PO DAILY, #30 TAB TAKE NEEDED 11/26/18 Famotidine* (Famotidine*) 20 Mg Tablet, 20 MG PO BID, #30 TAB 11/26/18 Furosemide* (Furosemide*) 40 Mg Tablet, 40 MG PO BID, TAB 11/26/18 Levothyroxine Sodium* (Levothyroxine Sodium*) 125 Mcg Tablet, 125 MCG PO BEFORE BREAKFAST, #30 TAB 11/26/18 Bisacodyl (Ducodyl) 5 Mg Tablet.dr, 5 MG PO NEEDED 11/26/18 Ergocalciferol (Vitamin D2) (VITAMIN D2) 50,000 Unit Capsule, 11036 UNIT PO Q SAT, CAP 11/26/18 Lisinopril* (Lisinopril*) 5 Mg Tablet, 5 MG PO DAILY, #30 TAB TAKE NEEDED 11/26/18 Clonidine Hcl* (Clonidine Hcl*) 0.2 Mg Tablet, 0.2 MG PO BID PRN for HTN, TAB 11/26/18 Clonidine Patch (CLONIDINE PATCH) 0.2 Mg/24 Hr Patch, 1 PATCH.WK TD Q7D, #4 PATCH.WK 11/26/18 Hydralazine Hcl* (Apresoline*) 50 Mg Tab, 50 MG PO BID PRN for HTN, #60 TAB TAKE NEEDED 11/26/18 Insulin Glargine,Hum.rec.anlog (Basaglar Kwikpen U-100) 100 Unit/1 Ml Insuln.pen, 40 UNIT SC QHS, EA 11/26/18 Docusate Sodium* (Colace*) 250 Mg Capsule, 250 MG PO BID, #60 CAP 11/26/18 Ferrous Sulfate* (Ferrous Sulfate*) 325 Mg Tabec, 325 MG PO BID, TAB 11/26/18 Primary Care Provider Artur Lind MD Pending Labs Laboratory Tests Test 12/17/18 15:40 12/17/18 17:37 12/17/18 20:27 12/18/18 02:18 Hemoglobin A1c 6.5 % (0-5.9) Bedside 171 306 237 Glucose mg/dL (70-220) mg/dL (70-220) mg/dL (70-220) Test 12/18/18 10:46 12/18/18 11:49 White Blood 5.0 Count 10^3/ul (4.8-10 .8) Red Blood 3.04 Count 10^6/ul (4.20-5 .40) Hemoglobin 9.1 g/dl (12.0-16.0 ) Hematocrit 29.6 % (37.0-47.0) Mean 97.4 Corpuscular fl (82.0-101.0) Volume Mean 29.9 Corpuscular pg (29.0-33.0) Hemoglobin Mean 30.7 Corpuscular g/dl (32.0-37.0 Hemoglobin Conc ) ent Red Cell 17.1 Distribution % (11.5-14.5) Width Platelet Count 140 10^3/UL (140-41 5) Mean Platelet 11.7 Volume fl (7.4-10.4) Immature 0.600 Granulocytes % % (0.001-0.429) Neutrophils % 66.6 % (39.0-77.0) Lymphocytes % 17.9 % (15.0-51.0) Monocytes % 13.5 % (0.0-11.0) Eosinophils % 1.0 % (0.0-7.0) Basophils % 0.4 % (0.0-2.0) Nucleated Red 0.0 Blood Cells % /100WBC (0.0-0. 0) Immature 0.030 Granulocytes # 10^3/ul (0.0-0. 031) Neutrophils # 3.4 10^3/ul (1.6-7. 5) Lymphocytes # 0.9 10^3/ul (0.8-2. 9) Monocytes # 0.7 10^3/ul (0.3-0. 9) Eosinophils # 0.1 10^3/ul (0.0-0. 5) Basophils # 0.0 10^3/ul (0.0-0. 1) Nucleated Red 0.0 Blood Cells # 10^3/ul (0.0-0. 0) Sodium Level 138 mmol/L (135-144 ) Potassium 4.2 Level mmol/L (3.5-5.1 ) Chloride Level 99 mmol/L (97-110) Carbon Dioxide 27 Level mmol/L (21-31) Anion Gap 12 (5-13) Blood Urea 16 mg/dl (7-20) Nitrogen Creatinine 4.30 mg/dl (0.44-1.0 0) Est Glomerular mL/min (>60) Filtrat Rate mL/min Glucose Level 310 mg/dl (70-220) Calcium Level 9.4 mg/dl (8.4-10.2 ) Phosphorus 2.7 Level mg/dl (2.5-4.9) Magnesium 2.1 Level mg/dl (1.7-2.5) Bedside 323 Glucose mg/dL (70-220) BALA BROOKE MD December 18, 2018 13:01
[2018-12-18] MEDS: HALOPERIDOL 5 MG INJ IM PRN (13:37)
[2018-12-18 14:00] VITALS: BP 119/80; PULSE 79; RESP 18
--- NOTE | 2018-12-19 17:57 | PN ---
DATE: 12/18/2018 SUBJECTIVE: Follow up on coronary artery disease, diabetes, hypertension, end-stage renal disease, c ongestive heart failure. The patient is breathing comfortably. No reported fever or chills. No rep orted vomiting, no reported anginal chest pain. PHYSICAL EXAMINATION: GENERAL: Awake, alert. VITAL SIGNS: Temperature 97.8, pulse 79, respiration 18, blood pressure 119/80, O2 saturation 93% on room air. HEENT: No eye discharge or redness. Conjunctivae are normal. Oropharynx clear. NECK: Supple, no mass, no thyromegaly. CHEST: Fairly clear. No use of accessory muscles. CARDIOVASCULAR: Irregular rhythm. Variable S1. No murmur. ABDOMEN: Soft, nondistended and nontender. Bowel sounds plus. EXTREMITIES: No edema, clubbing or cyanosis. NEUROLOGIC: The patient is awake and alert with generalized weakness. LABORATORY DATA: Done on 12/18/2018: WBC 5, hemoglobin 9.1, platelet 140. Sodium 138, potassium 4. 2, BUN 16, creatinine 4.3, calcium 9.4, phosphorus 2.7, magnesium 2.1. IMPRESSION: 1. Coronary artery disease. 2. End-stage renal disease. 3. Diabetes. 4. Congestive heart failure. 5. Hypothyroidism. 6. Anemia of chronic kidney disease. 7. Atrial fibrillation. Heart rate well controlled with the current dose of metoprolol and Cardizem . No anticoagulation due to recent GI bleed. The patient is being followed by Dr. Sy from card iac standpoint. 8. Hypertension. The patient's blood pressure well controlled with Diltiazem, metoprolol and Catapr es patch. 9. Psychosis, unspecified. The patient's behavior is stable with current dose of Seroquel. PLAN: The patient is being discharged home today and will be followed by home health for PT, OT, and diabetic management and medication compliance. The patient will follow up with PMD upon discharge a nd optimize her diabetic medication. The patient is now and will be followed by Dr. Sadler's group as an outpatient. Dictated By: NEREIDA CALLES/STEPHEN Conf#: [id number] DID#: [id number]
== END 2018-12-18 16:25 | disposition home health service (06) | DRG 91 ==
LOC: VRC 18:28
PROVIDERS: ADMIT Internal Medicine; ATTEND Internal Medicine
PROC: 5A1D70Z Performance of Urinary Filtration, Intermittent, Less than 6 Hours Per Day (ICD-10-PCS; principal; 2018-12-17)
DX: G92 Toxic encephalopathy (principal); N18.6 End stage renal disease; N17.9 Acute kidney failure, unspecified; N39.0 Urinary tract infection, site not specified; I13.2 Hypertensive heart and chronic kidney disease with heart failure and with stage 5 chronic kidney disease, or end stage renal disease; I50.30 Unspecified diastolic (congestive) heart failure; E11.22 Type 2 diabetes mellitus with diabetic chronic kidney disease; Z99.2 Dependence on renal dialysis; D64.9 Anemia, unspecified; E83.9 Disorder of mineral metabolism, unspecified; I25.10 Atherosclerotic heart disease of native coronary artery without angina pectoris; E03.9 Hypothyroidism, unspecified; D69.6 Thrombocytopenia, unspecified; I95.9 Hypotension, unspecified; I48.91 Unspecified atrial fibrillation; J45.909 Unspecified asthma, uncomplicated; R53.81 Other malaise; R13.12 Dysphagia, oropharyngeal phase; Z74.09 Other reduced mobility; G31.84 Mild cognitive impairment of uncertain or unknown etiology
CPT/HCPCS: 80048; 80053; 82962; 83036; 83735; 84100; 85025; 87081; 90935; 92523; 92610; 93005; 94640; 94664; 97110; 97116; 97163; 97166; 97530; 97542; J1630; J1815; J2060; J2405; Q5105